=== PATIENT | male | born 1945 | race Caucasian/White ===

== ENCOUNTER 2019-07-12 15:47 | Outpatient (CLI) | payer MEDICARE, OTHER, SELFPAY ==
--- NOTE | ~2019-07-12 | XR_ITS ---
XR hand LT min 3V DATE: 07/12/2019 16:21 INDICATION: Pain, swelling, left fourth metacarpophalangeal area TECHNIQUE: 3 views COMPARISON: None FINDINGS: There is average 07/12/2019 US breast is there is polyarticular osteoarthritis including par ticularly the first carpometacarpal, as well as triscaphe, first and second metacarpophalangeal and m ultiple interphalangeal joints. No fracture, dislocation, periosteal reaction or bone destruction. IMPRESSION: Polyarticular osteoarthritis Reviewed, dictated and finalized at location A.
== END 2019-07-12 15:48 | disposition home or self-care (01) ==
PROVIDERS: PCP Family Medicine; Visit Provider Physician Assistant
DX: M19.042 Primary osteoarthritis, left hand (principal)
CPT/HCPCS: 73130

== ENCOUNTER 2019-08-30 09:42 | Outpatient (CLI) | payer MEDICARE, OTHER, SELFPAY ==
--- NOTE | ~2019-08-30 | XR_ITS ---
XR chest 2V DATE: 08/30/2019 09:52 INDICATION: Anemia TECHNIQUE: PA and lateral views COMPARISON: 12/31/2018 2 view chest FINDINGS: Normal heart size. No hilar or mediastinal enlargement. No pulmonary infiltrate or consolid ation, pleural effusion or pulmonary vascular congestion or pneumothorax. Dextroscoliosis of the thoracolumbar spine. Status post anterior cervical spine surgical fusion Status post cholecystectomy. IMPRESSION: No active cardiopulmonary disease Reviewed, dictated and finalized at location B.
== END 2019-08-30 09:43 | disposition home or self-care (01) ==
PROVIDERS: PCP Family Medicine; Visit Provider Physician Assistant
DX: D64.9 Anemia, unspecified (principal)
CPT/HCPCS: 71046

== ENCOUNTER 2020-04-26 08:43 | Outpatient (CLI) | payer MEDICARE, OTHER, SELFPAY ==
--- NOTE | ~2020-04-26 | XR_ITS ---
EXAMINATION: XR chest 2V DATE: 04/26/2020 11:06 INDICATION: Preoperative evaluation. Surgical risk factors of hypertension and coronary artery diseas e with prior coronary artery stenting. TECHNIQUE: PA and lateral views of the chest were obtained. COMPARISON: Chest radiograph dated 08/30/2019 FINDINGS: Unchanged mild elevation of the left hemidiaphragm and mild eventration along the right hemidiaphragm . No focal airspace opacities, pulmonary edema, pleural effusion or pneumothorax. The cardiomediastin al silhouette is normal. Coronary artery stent. Cholecystectomy clips in right upper quadrant. Anteri or plate and screw fixation at the lower cervical spine. Mild thoracolumbar dextrocurvature with mild to moderate spondylosis. IMPRESSION: 1. No acute cardiopulmonary disease. Reviewed, dictated and finalized at location B. OL PSYCHOLOGICAL EXAMINER
[2020-04-26 10:10] LABS: Basophils Absolute Auto 0.1 K/mm3 (0.0-0.1); Basophils Percent Auto 0.7 % (0.2-1.2); Eosinophils Absolute Auto 0.4 K/mm3 (0-0.3); Eosinophils Percent Auto 5.1 % (0-4.4); Hematocrit 36.7 % (42.0-52.0); Immature Granulocyte Absolute 0.04 K/mm3 (0.00-0.031); Immature Granulocyte Percent A 0.6 % (0-0.5); Lymphocytes Absolute Auto 1.59 K/mm3 (0.9-3.2); Lymphocytes Percent Auto 22.4 % (18.3-44.2); Mean Corpuscular HGB Conc 32.7 g/dl (32-36); Mean Corpuscular Hemoglobin 30.5 pg (26-34); Mean Corpuscular Volume 93.1 fl (80-100); Mean Platelet Volume 9.2 fl (7.4-10.4); Monocytes Percent Auto 13.7 % (2.6-8.5); Neutrophils Absolute Auto 4.1 K/mm3 (1.3-6.7); Neutrophils Percent Auto 57.5 % (45.5-73.1); Platelet Count Result 147 k/mm3 (150-375); Red Blood Count 3.94 M/mm3 (4.6-6.20); Red Cell Distribution Width 13.7 % (11.5-14.5); White Blood Count 7.1 K/mm3 (4.5-10.0)
--- NOTE | 2020-04-26 10:12 | ECG_ITS ---
Measurements Intervals [place] Rate: 51 P: 54 NM: 149 QRS: 36 QRSD: 96 T: 5 QT: 422 QTc: 391 Interpretive Statements SINUS BRADYCARDIA RSR' IN V1 OR V2, CONSIDER RIGHT VENTRICULAR HYPERTROPHY OR RIGHT VCD BASELINE WANDER- II, III, AVR, AVL, AVF BORDERLINE ECG Electronically Signed On 04-26-2020 10:43:41 MANAGER [employer]ES by Shakir Bowden D.O.
[2020-04-26 10:18] LABS: Prothrombin Time 13.5 Seconds (11.1-14.7)
[2020-04-26 10:19] LABS: Partial Thromboplastin Time 25.3 SECONDS (22.3-36.8)
[2020-04-26 10:23] LABS: Alanine Aminotransferase 20 U/L (4-50); Albumin Level 4.2 g/dL (3.5-5.1); Alkaline Phosphatase 56 U/L (38-126); Anion Gap 8 mmol/L (8-16); Aspartate Amino Transferase 28 U/L (17-59); Bilirubin,Total 0.6 mg/dL (0.2-1.3); Blood Urea Nitrogen 17 mg/dL (9-20); Calcium 9.7 mg/dL (8.4-10.2); Carbon Dioxide 30 mmol/L (22-30); Chloride 104 mmol/L (98-107); Estimated Glomerular Filt Rate > 60; Glucose 160 mg/dL (75-110); Sodium 142 mmol/L (137-145)
== END 2020-04-26 08:44 | disposition home or self-care (01) ==
PROVIDERS: PCP Family Medicine
DX: Z01.818 Encounter for other preprocedural examination (principal); D68.9 Coagulation defect, unspecified; Z79.01 Long term (current) use of anticoagulants
CPT/HCPCS: 36415; 71046; 80053; 85025; 85610; 85730; 93005

== ENCOUNTER 2020-08-11 09:31 | Outpatient (CLI) | payer MEDICARE, OTHER, SELFPAY ==
[2020-08-11 09:54] LABS: Hemoglobin A1C 6.9 % (<5.7)
[2020-08-14 17:52] LABS: H pylori, Urea Breath NOT DETECTED (NOT DETECTED)
== END 2020-08-11 09:32 | disposition home or self-care (01) ==
LOC: CHSLAB 09:35
PROVIDERS: PCP Family Medicine; Visit Provider Family Medicine
DX: E11.9 Type 2 diabetes mellitus without complications (principal); K21.9 Gastro-esophageal reflux disease without esophagitis
CPT/HCPCS: 36415; 83013; 83036

== ENCOUNTER 2020-08-15 12:38 | Outpatient (CLI) | payer MEDICARE, OTHER, SELFPAY ==
--- NOTE | ~2020-08-15 | CT_ITS ---
EXAMINATION: CT abdomen pelvis wo con DATE: 08/15/2020 12:59 INDICATION: Abdominal hernia without obstruction. Low abdominal pain. TECHNIQUE: Computed tomography (CT) of the abdomen and pelvis was performed without intravenous contr ast. Automated exposure control and iterative reconstruction technique were employed. The dose-length product was 670.77 mGy-cm. COMPARISON: CT abdomen and pelvis 05/25/2010 FINDINGS: The visualized portions of the lung bases demonstrate mild atelectasis. No pleural effusion . The heart size is normal. There are coronary artery calcifications. No pericardial effusion. The li siria is normal. Calcifications in the spleen are consistent with old granulomatous disease. There are changes of cholecystectomy. Calcifications in the pancreas are consistent with chronic pancreatitis. The adrenal glands and kidneys are normal. There is no urolithiasis. The prostate is moderately enlar ged. There are no dilated loops of bowel. The appendix is normal. There are no pathologically enlarge d lymph nodes. There is no free intraperitoneal fluid. There are changes of anterior and posterior fu alesha procedures in lumbar spine. There is mild thoracolumbar spondylosis. IMPRESSION: 1. No etiology for the patient's symptoms. Reviewed, dictated and finalized at location A.
== END 2020-08-15 12:39 | disposition home or self-care (01) ==
LOC: CHSIMG 12:41
PROVIDERS: PCP Family Medicine; Visit Provider Family Medicine
DX: K46.9 Unspecified abdominal hernia without obstruction or gangrene (principal)
CPT/HCPCS: 74176

== ENCOUNTER 2020-09-14 09:39 | Outpatient (CLI) | payer MEDICARE, OTHER, SELFPAY ==
--- NOTE | ~2020-09-14 | XR_ITS ---
XR hip RT 2V w AP pelvis DATE: 09/14/2020 10:08 INDICATION: Right hip pain for one year TECHNIQUE: AP pelvis. AP and lateral views of right hip COMPARISON: None FINDINGS: Lumbar surgical spinal fusion and laminectomy. The pubic symphysis and sacroiliac joints are intact. No pelvic fracture or bone destruction. There is mild right hip osteoarthritis. No right hip fracture or dislocation, avascular necrosis or bone destruction. IMPRESSION: Postoperative change of the lumbar spine Mild right hip osteoarthritis Reviewed, dictated and finalized at location A.
== END 2020-09-14 09:40 | disposition home or self-care (01) ==
LOC: CHSIMG 09:44
PROVIDERS: PCP Family Medicine; Visit Provider Family Medicine
DX: M25.551 Pain in right hip (principal); M16.11 Unilateral primary osteoarthritis, right hip
CPT/HCPCS: 73502

== ENCOUNTER 2020-12-06 11:34 | Outpatient (CLI) | payer MEDICARE, OTHER, SELFPAY ==
--- NOTE | ~2020-12-06 | XR_ITS ---
XR wrist LT 2V DATE: 12/06/2020 12:03 INDICATION: Left wrist pain TECHNIQUE: AP and lateral views COMPARISON: None FINDINGS: There is osteoarthritic change at the triscaphe joint. There is prominent osteoarthritic change at the first carpometacarpal joint. There is osteophytic herrera nge at the first metacarpophalangeal joint. No fracture or dislocation of the wrist. No erosive change or periostitis is noted. IMPRESSION: Polyarticular osteoarthritis No fracture or dislocation Reviewed, dictated and finalized at location B.
--- NOTE | ~2020-12-06 | XR_ITS ---
XR hand LT 2V DATE: 12/06/2020 12:02 INDICATION: Left hand pain from wrist to fingertips for 5 days TECHNIQUE: AP and lateral views COMPARISON: 07/12/2019 left hand FINDINGS: There is polyarticular osteoarthritis, most prominent at the first carpometacarpal and firs t and second metacarpophalangeal joints and some interphalangeal joints, greatest at the distal inter phalangeal joint of the second digit. No fracture or dislocation, periosteal reaction or bone destruction is detected. IMPRESSION: Polyarticular osteoarthritis; no significant change since 07/12/2019 Reviewed, dictated and finalized at location B.
== END 2020-12-06 11:35 | disposition home or self-care (01) ==
LOC: CHSIMG 11:37
PROVIDERS: PCP Family Medicine; Visit Provider Nurse Practitioner Family
DX: M79.642 Pain in left hand (principal); M25.532 Pain in left wrist
CPT/HCPCS: 73100; 73120

== ENCOUNTER 2021-01-31 11:43 | Outpatient (CLI) | payer MEDICARE, OTHER, SELFPAY ==
--- NOTE | ~2021-01-31 | XR_ITS ---
EXAMINATION: XR lumbar spine 2-3V DATE: 01/31/2021 12:36 INDICATION: Sciatica TECHNIQUE: Anteroposterior and lateral views of the lumbar spine, and cone-down lateral view of the l umbosacral junction were obtained. COMPARISON: 03/14/2014 FINDINGS: There are changes of anterior and posterior fusion at L2-3 and L4-5. Previously described a nterolisthesis of L4 on L5 has been reduced to anatomic alignment. There are 3 mm of unchanged retrol isthesis of L4 on L5. There are 2 mm of retrolisthesis of L1 on L2. The vertebral body height at are maintained. There is moderate loss of intervertebral disc space height at L3-4. Lumbar levocurvature is noted. No fracture is identified. Cholecystectomy clips are noted. IMPRESSION: 1. Changes of interval anterior and posterior fusion at L2-3 and L4-5 with reduced anterolisthesis of L4 on L5. Moderate lumbar spondylosis without acute findings. Reviewed, dictated and finalized at location A. SMELLER IMPRESSION: 1. Changes of interval anterior and posterior fusion at L2-3 and L4-5 with redu lashonda anterolisthesis of L4 on L5. Moderate lumbar spondylosis without acute find ings.
--- NOTE | ~2021-01-31 | XR_ITS ---
EXAMINATION: XR_CERV2-3V_CR EXAM DATE: 01/31/2021 12:36 INDICATION: Left shoulder pain. TECHNIQUE: Cervical spine frontal, lateral, lateral swimmers, and open-mouth odontoid projections. There is no prior study for comparison. FINDINGS: Cervical fusion hardware C4-6 along with interbody devices and solid bone bridging. Hardwa re is intact. Moderate to severe disc disease at C6-7 with 2 mm of anterolisthesis. The vertebral bod ies are otherwise aligned. The vertebral body and disc heights are otherwise well maintained. There i s moderate to severe cervical arthropathy, certainly causing some amount of neural foraminal stenosis . There is mild cervical levoscoliosis. There is about 3 cm sized region of lucency along the right side of the C4 and C5 vertebral bodies on the frontal projection. Recommend CT cervical spine without contrast for further evaluation. IMPRESSION: 1. Sizable lucent region overlying right side of C4 and 5 vertebral bodies, with some possibilities including osteolytic disease, tracheal or esophageal diverticulum. CT cervical spine without contrast recommended. 2. Intact cervical fusion C4-6. 3. Moderate to severe arthropathy and C6-7 disc disease. Reviewed, dictated and finalized at location A. ND PLANNER IMPRESSION: 1. Sizable lucent region overlying right side of C4 and 5 vertebral bodies, wi th some possibilities including osteolytic disease, tracheal or esophageal dive rticulum. CT cervical spine without contrast recommended. 2. Intact cervical fusion C4-6. 3. Moderate to severe arthropathy and C6-7 disc disease.
--- NOTE | ~2021-01-31 | XR_ITS ---
EXAMINATION: XR shoulder LT min 2V DATE: 01/31/2021 12:36 INDICATION: Left shoulder pain. TECHNIQUE: 4 views of left shoulder were obtained. COMPARISON: None. FINDINGS: Bone alignment is normal. No fracture. There is mild osteoarthritis of glenohumeral joint a nd acromioclavicular joint. IMPRESSION: 1. Mild polyarticular osteoarthritis. Reviewed, dictated and finalized at location A. T COOPER
== END 2021-01-31 11:44 | disposition home or self-care (01) ==
LOC: CHSIMG 11:47
PROVIDERS: PCP Family Medicine; Visit Provider Nurse Practitioner Family
DX: M25.512 Pain in left shoulder (principal); M54.2 Cervicalgia; M54.30 Sciatica, unspecified side
CPT/HCPCS: 72040; 72100; 73030

== ENCOUNTER 2021-02-02 12:02 | Outpatient (CLI) | payer MEDICARE, OTHER, SELFPAY ==
--- NOTE | ~2021-02-02 | CT_ITS ---
EXAMINATION: CT cervical spine wo con EXAM DATE: 02/02/2021 12:40 INDICATION: R93.7 - Abnormal cervical x-ray demonstrating lucent region overlying right side of lower cervical spine. TECHNIQUE: Spiral CT of the cervical spine was performed without contrast. Axial images were reviewe d. Coronal and sagittal reformatted images cervical spine were also reviewed. The dose-length produc t (DLP) for this examination was 496.49 mGy-cm. The exposure was tailored according to patient size (auto mA exposure control), and iterative reconstruction (ASIR) was used as additional dose reduction technique. Correlation is made to x-ray from 01/31/2021. FINDINGS: There are patulous vallecula and piriform sinuses, probably accounts for the lucent findin g, x-ray appearance. No tracheal diverticulum or osteolytic disease. Anterior and interbody fusion C4 -C6. There is solid bone bridging. There is moderate to severe disc disease at C6-7, moderate at C7-T 1. The vertebral bodies are aligned in the AP dimension. The odontoid process is intact. The lateral masses of C1 line up with C2. Prevertebral soft tissue and pre-dens space are within normal limits. Level by level evaluation: C2-C3: There is a mild diffuse disc bulge. Uncovertebral joint arthropathy: Mild bilateral. Facet joint arthropathy: Severe right, mild to moderate left. Neural foraminal stenosis: Mild to moderate right, mild left. Central canal stenosis: No stenosis. C3-C4: There is a mild diffuse disc bulge. Uncovertebral joint arthropathy: Mild to moderate right, mild left. Facet joint arthropathy: Severe right. Neural foraminal stenosis: Moderate to severe right. Central canal stenosis: No stenosis. C4-C5: There is posterior disc osteophyte complex. Uncovertebral joint arthropathy: Moderate to severe right, mild to moderate left. Facet joint arthropathy: Moderate to severe bilateral. Neural foraminal stenosis: Moderate to severe right, mild to moderate left. Central canal stenosis: Mild. C5-C6: This level is fused. Uncovertebral joint arthropathy: Moderate right, mild to moderate left. Facet joint arthropathy: Severe right, moderate left, but both fused. Neural foraminal stenosis: Moderate right, mild to moderate left. Central canal stenosis: No stenosis. C6-C7: There is a mild diffuse disc bulge. Uncovertebral joint arthropathy: Moderate to severe left, mild to moderate right. Facet joint arthropathy: Mild bilateral. Neural foraminal stenosis: Moderate to severe left. Central canal stenosis: Mild. C7-T1: There is a mild diffuse disc bulge. Uncovertebral joint arthropathy: Mild to moderate left, mild right. Facet joint arthropathy: Severe bilateral. Neural foraminal stenosis: Mild bilateral. Central canal stenosis: No stenosis. IMPRESSION: 1. Intact C4-6 fusion. 2. Advanced arthropathy, spondylosis as above. 3. No osteolytic disease. Reviewed, dictated and finalized at location A. RACTIVE MEDIA MARKETING SPECIALIST
== END 2021-02-02 12:03 | disposition home or self-care (01) ==
LOC: CHSIMG 12:03
PROVIDERS: PCP Family Medicine; Visit Provider Nurse Practitioner Family
DX: R93.7 Abnormal findings on diagnostic imaging of other parts of musculoskeletal system (principal)
CPT/HCPCS: 72125

== ENCOUNTER 2021-04-03 14:49 | Outpatient (CLI) | payer MEDICARE, OTHER, SELFPAY ==
--- NOTE | ~2021-04-03 | US_ITS ---
EXAMINATION: US soft tissue LE LT DATE: 04/03/2021 15:03 INDICATION: Left lower limb pain. TECHNIQUE: Multiple grayscale and Doppler ultrasound images of the left lower limb were obtained. COMPARISON: None FINDINGS: There is no hematoma in the calf. No Burch's cyst. IMPRESSION: 1. No etiology for the patient's symptoms. Reviewed, dictated and finalized at location A. PY STRINGER
== END 2021-04-03 14:50 | disposition home or self-care (01) ==
LOC: CHSIMG 14:50
PROVIDERS: PCP Family Medicine; Visit Provider Nurse Practitioner Family
DX: M79.662 Pain in left lower leg (principal)
CPT/HCPCS: 76882

== ENCOUNTER 2021-07-24 16:15 | Emergency (ER) | payer MEDICARE, OTHER, SELFPAY ==
[2021-07-24] VITALS (18 sets, daily range): BP systolic 121–147; BP diastolic 69–82; PULSE 65–80; RESP 16–20; TEMP 36.3; O2SAT 90–99
--- NOTE | ~2021-07-24 | CT_ITS ---
EXAMINATION: CTA chest PE protocol DATE: 07/24/2021 18:34 INDICATION: Shortness of breath TECHNIQUE: Computed tomography angiography (CTA) of the chest was performed with 100 mL Omnipaque-350 intravenous contrast timed to evaluate the pulmonary arteries. Coronal maximum intensity projection 3D-reconstructions were created by the technologist. The dose-length product (DLP) was 463.16 mGy-cm. Automated exposure control and iterative reconstruction technique were employed. COMPARISON: 02/14/2016 FINDINGS: The pulmonary arteries are well-opacified. No pulmonary embolism is identified. There are c hanges of right partial pneumonectomy. Mild dependent atelectasis is noted. There are no focal airspa ce opacities. No pathologically enlarged thoracic lymph nodes are identified. The heart size is niya l. Mild gynecomastia is noted. Punctate calcifications in an otherwise normal spleen likely represent healed granulomatous disease. There is mild thoracic spondylosis. IMPRESSION: 1. No pulmonary embolism or acute cardiopulmonary abnormality. Reviewed, dictated and finalized at location F.
--- NOTE | ~2021-07-24 | XR_ITS ---
EXAMINATION: XR chest 1V portable DATE: 07/24/2021 16:44 INDICATION: Shortness of breath and weakness TECHNIQUE: frontal view of the chest was obtained. COMPARISON: Chest radiograph dated 04/26/2020 FINDINGS: Unchanged mild elevation of the left hemidiaphragm and mild eventration along the right hemidiaphragm . Lungs remain clear with no focal airspace opacities, pulmonary edema, pleural effusion or pneumotho rax. The cardiomediastinal silhouette is normal. Plate-screw fixation for lower cervical anterior spi nal fusion. IMPRESSION: 1. No acute cardiopulmonary disease. Reviewed, dictated and finalized at location B.
--- NOTE | 2021-07-24 16:25 | ED.SOB ---
HPI - SOB/Dyspnea General Chief Complaint: Shortness of Breath/Dyspnea Stated Complaint: trouble breathing Time Seen by Provider: 07/24/21 16:25 Source: patient Limitations: no limitations History of Present Illness HPI Narrative: 75-year-old male with a history of hypertension, diabetes mellitus, coronary artery disease status post stent, EF 60%, dyslipidemia, MARTIN presents to the ER with -- shortness of breath for the past 2 weeks. Initially patient had shortness of breath on attempting to sleep. Presently he has shortness of breath all the time irrespective of his position. no chest pain. No cough or sputum production MD elicited complaint: shortness of breath Onset (ago): day(s) ( started 14 days ago severe for the past 2 days) Timing: intermittent Severity: mild Exacerbating factors: lying flat Relieving factors: nothing Associated symptoms: denies other symptoms Treatment prior to arrival: none Related Data Home oxygen amount: none Home Medications Medication Instructions Recorded Confirmed omega-3 fatty acids 1,000 mg 1,000 mg PO DAILY 01/08/19 07/24/21 capsule (Fish Oil Concentrate) aspirin 81 mg tablet,delayed 81 mg PO DAILY 07/05/20 07/24/21 release clopidogrel 75 mg tablet 75 mg PO DAILY 07/05/20 07/24/21 pantoprazole 40 mg tablet,delayed 40 mg PO QAM 08/11/20 07/24/21 release (Protonix) carvedilol 6.25 mg tablet See Rx Instructions PO Q12H 04/16/21 07/24/21 Allergies Allergy/AdvReac Type Severity Reaction Status Date / Time mirtazapine Allergy Unknown legs shake Verified 07/24/21 16:26 Review of Systems Review of Systems: All systems reviewed & are unremarkable except as noted in HPI and below Constitutional: Constitutional: Reports as per HPI and Reports no additional constitutional complaints Eyes: Eyes: Reports as per HPI and Reports no additional eye complaints ENT: Reports system reviewed and no additional complaints, except as documented and Reports as per HPI Cardiovascular: Cardiovascular: Reports as per HPI and Reports no additional cardiovascular complaints Respiratory: Respiratory: Reports as per HPI, Reports no additional respiratory complaints and Reports dyspnea Gastrointestinal: Gastrointestinal: Reports as per HPI and Reports no additional gastrointestinal complaints Genitourinary: Genitourinary: Reports no additional male genitourinary complaints and Reports as per HPI Musculoskeletal: Musculoskeletal: Reports no additional musculoskeletal complaints and Reports as per HPI Integumentary/Breasts: Skin/Breast: Reports system reviewed and no additional complaints, except as docu and Reports as per HPI Neurologic: Reports system reviewed and no additional complaints, except as documented and Reports as per HPI Psychiatric: Psychiatric: Reports no additional psychiatric complaints and Reports as per HPI Endocrine: Endocrine: Reports no additional endocrine complaints and Reports as per HPI Hematologic/Lymphatic: Hematologic/Lymphatic: Reports no additional hematologic/lymphatic complaints and Reports as per HPI Allergic/Immunologic: Allergic/Immunologic: Reports no additional allergic/immunologic complaints and Reports as per HPI [facility] Past Medical History Medical History (Updated 07/24/21 @ 19:13 by Giovanny Ragsdale MD) Coronary artery disease Fusion of lumbar spine (~2013) Hernia Lumbar disc herniation Surgical History Surgical History H/O lumbosacral spine surgery History of cardiac cath April, with stent History of cholecystectomy History of heart artery stent April, History of tonsillectomy and adenoidectomy Family History Family History Father Diabetes mellitus Hypertension Family history of elevated blood lipids Family history of cardiovascular disease Acute myocardial infarction Mother Diabetes mellitus Hypertensi
--- NOTE | 2021-07-24 16:29 | ECG_ITS ---
Measurements Intervals [place] Rate: 71 P: 59 DE: 141 QRS: 3 QRSD: 92 T: -14 QT: 366 QTc: 400 Interpretive Statements SINUS RHYTHM EARLY PRECORDIAL R/S TRANSITION CONSIDER INFERIOR INFARCT, AGE INDETERMINATE BASELINE ARTIFACT- I, II, III, AVR, AVL, AVF, V1-V6 ABNORMAL ECG Electronically Signed On 07-24-2021 18:19:06 CDT by Shakir Bowden D.O.
[2021-07-24 16:57] LABS: Basophils Absolute Auto 0.05 K/mm3 (0.00-0.10); Basophils Percent Auto 0.7 % (0.0-1.0); Eosinophils Absolute Auto 0.56 K/mm3 (0.02-0.50); Eosinophils Percent Auto 8.1 % (1.0-6.0); Hematocrit 35.9 % (37.0-46.0); Hemoglobin 11.6 g/dL (12.4-15.3); Immature Granulocyte Absolute 0.02 K/mm3 (0.00-0.00); Immature Granulocyte Percent A 0.3 % (0.0-0.0); Lymphocytes Absolute Auto 1.46 K/mm3 (1.10-4.50); Lymphocytes Percent Auto 21.1 % (18.0-42.0); Mean Corpuscular HGB Conc 32.3 g/dL (32.0-36.0); Mean Corpuscular Hemoglobin 30.6 pg (27.0-31.0); Mean Corpuscular Volume 94.7 fL (78.0-102.0); Mean Platelet Volume 9.1 fl (8.7-11.0); Monocytes Absolute Auto 0.98 K/mm3 (0.10-0.90); Monocytes Percent Auto 14.1 % (2.0-11.0); Neutrophils Absolute Auto 3.9 K/mm3 (1.7-7.2); Neutrophils Percent Auto 55.7 % (50.0-70.0); Platelet Count Result 166 K/mm3 (150-420); Red Blood Count 3.79 M/mm3 (4.70-6.10); Red Cell Distribution Width 13.6 % (11.6-14.4); White Blood Count 6.9 K/mm3 (4.8-10.8)
[2021-07-24 17:12] LABS: Partial Thromboplastin Time 24.1 SEC (23.90-30.70)
[2021-07-24 17:16] LABS: D Dimer 0.54 mg/L (0.19-0.50)
[2021-07-24 17:18] LABS: SARS-CoV-2 Ag Negative (Negative)
[2021-07-24 17:24] LABS: Magnesium 1.8 mg/dL (1.8-2.4); Troponin I 9.9 ng/L (0.00-60.4)
[2021-07-24 17:27] LABS: Alanine Aminotransferase 28 U/L (16-63); Albumin Level 3.9 g/dL (3.4-5.0); Alkaline Phosphatase 69 U/L (46-116); Anion Gap 7 mmol/L (8-16); Aspartate Amino Transferase 19 U/L (15-37); Bilirubin,Total 0.6 mg/dL (0.00-1.00); Blood Urea Nitrogen 22 mg/dL (7-18); Calcium 9.6 mg/dL (8.5-10.1); Carbon Dioxide 29 mmol/L (21-32); Chloride 104 mmol/L (98-108); Estimated CRCL calculation 57 ml/min; Estimated Glomerular Filt Rate > 60; Glucose 162 mg/dL (70-99); NT Pro B Type Natriuretic Pept 282 pg/mL (0-450); Osmolality Calculated 297 mOsm/kg (285-295); Potassium 4.3 mmol/L (3.5-5.1); Sodium 140 mmol/L (136-145); Total Protein 7.1 g/dL (6.4-8.2)
[2021-07-24] MEDS: LACTATED RINGERS 1,000 ML 999 ML IV CONT (18:38)
--- NOTE | 2021-07-24 18:41 | PC.NURSE ---
PT HAS RETURNED FROM CT AT THIS TIME. SON AT BEDSIDE. NAD NOTED. PT IS IN POSITION OF COMFORT, DUE TO PAIN WITH LEFT HIP. PT VSS PER MONITOR. NAD NOTED. CALL LIGHT PROVIDED. WILL CONTINUE TO MONITOR. IVF INFUSING ORDERED WITHOUT DIFFICULTY.
== END 2021-07-24 19:25 | disposition home or self-care (01) ==
PROVIDERS: Emergency Provider Internal Medicine Critical Care Medicine; PCP Family Medicine
DX: R06.02 Shortness of breath (principal); Z20.822 Contact with and (suspected) exposure to COVID-19; I25.10 Atherosclerotic heart disease of native coronary artery without angina pectoris
CPT/HCPCS: 36415; 71045; 71275; 80053; 83735; 83880; 84484; 85025; 85380; 85610; 85730; 87426; 93005; 96360; 99284; C9803; J7120; Q9967

== ENCOUNTER 2021-08-03 08:58 | Outpatient (CLI) | payer MEDICARE, OTHER, SELFPAY ==
--- NOTE | 2021-08-14 12:27 | P.PCNPFT_ITS ---
PFT Procedure Performed PFT Procedure Performed Spirometry with Pre/Post Bronchodilator Plethysmography (Lung Vol) Diffusing Cap (DLCO) Flow Vol Loop PFT Interpretation DOS: 08/03/2021 REQUESTING: Dr Howe REASON FOR TESTING: Shortness of breath PULMONARY FUNCTION TESTS Results are reliable and reproducible. Spirometry: Pre-bronchodilator FEV1 is 83% predicted, 2.26 L., normal. Pre- bronchodilator FVC is 93% predicted, 3.31 L, normal. The FEV1/FVC ratio is 68%. After bronchodilator there is no significant improvement in flows in the FEV1 or FVC. The LTN18-66 is 47% predicted, 1.30 L. This increases by 19% with bronchodilator. Lung volumes: Total lung capacity is 94%, 5.6 L, normal. Residual volume is 86%, 2.16 L, normal. RV/TLC is 39% which is 86% predicted, normal. Diffusion: DLCO 95% predicted, normal. Flow volume loop: Unremarkable. IMPRESSION: This pulmonary function test shows a mild obstructive ventilatory impairment which is more significant in the small airways, improvement in flows in the small airways, normal lung volumes and normal diffusion. In the proper clinical setting this could be consistent with asthma. Oksana France MD
== END 2021-08-03 08:59 | disposition home or self-care (01) ==
LOC: CHSCARD 09:01
PROVIDERS: PCP Family Medicine; Visit Provider Nurse Practitioner Family
DX: R06.02 Shortness of breath (principal)
CPT/HCPCS: 94060; 94726; 94729

== ENCOUNTER 2021-09-03 08:04 | Outpatient (CLI) | payer MEDICARE, OTHER, SELFPAY ==
--- NOTE | 2021-09-03 08:06 | EST_ITS ---
Patient Info Name: Gavin Fenton Age: 75 years : 1945 Gender: Male Ht: 68 in Wt: 192 lbs BSA: 2.07 m2 HR: 95 bpm BP: 113 / 59 mmHg Heart Rhythm: Bradycardia Technical Quality: Good Exam Date: 09/03/2021 9:33 AM Exam Location: [facility] Patient Status: Outpatient Admit Date: 09/03/2021 Staff Ordering Physician: Rita Howell NP Attending Provider: Rita Howell NP Exercise Technologist: Jacquie Spivey CRT Exercise Physician: Radha Lyons CEP Exam Type: CA stress stiven w NM Study Info Indications SOB - A nuclear stress test was performed. History/Risk Factors Diabetes Mellitus: Yes History/Risk Factors Diabetes. Summary 1. 1. Negative lexiscan stress test for ischemic ST changes by ECG criteria. 2. 2. Stable hemodynamics throughout the test. 3. 3. Nuclear scan to follow and will be reported separately. Please correlate with it. Protocol: LEXISCAN Stress ECG Details Stage: REST Duration (min): 1 min : 2 sec HR (bpm): 64 SBP (mmHg): 113 DBP (mmHg): 59 Stage: REST Duration (min): 5 min : 45 sec HR (bpm): 61 SBP (mmHg): 113 DBP (mmHg): 59 Stage: STAGE 1 Duration (min): 0 min : 14 sec HR (bpm): 66 SBP (mmHg): 113 DBP (mmHg): 59 Stage: RECOVERY Duration (min): 0 min : 45 sec HR (bpm): 80 SBP (mmHg): 113 DBP (mmHg): 59 Stage: RECOVERY Duration (min): 1 min : 45 sec HR (bpm): 89 SBP (mmHg): 113 DBP (mmHg): 59 Stage: RECOVERY Duration (min): 2 min : 45 sec HR (bpm): 88 SBP (mmHg): 109 DBP (mmHg): 51 Stage: RECOVERY Duration (min): 3 min : 45 sec HR (bpm): 85 SBP (mmHg): 109 DBP (mmHg): 47 Stage: RECOVERY Duration (min): 4 min : 45 sec HR (bpm): 88 SBP (mmHg): 112 DBP (mmHg): 46 Stage: RECOVERY Duration (min): 5 min : 45 sec HR (bpm): 84 SBP (mmHg): 110 DBP (mmHg): 47 Stage: RECOVERY Duration (min): 6 min : 5 sec HR (bpm): 79 SBP (mmHg): 110 DBP (mmHg): 47 Rest HR: 61 bpm Peak HR: 91 bpm Rest Sys BP: 113 mmHg Peak Sys BP: 112 mmHg Max Pred HR: 145 bpm % Max Pred HR: 63 % Target HR: 123 bpm Max RPP: 10,192 bpm*mmHg BP Response: Normal blood pressure response Termination Reason: Completed Protocol Cardiac Symptoms: Chest Pressure, Dyspnea Total Time: 0 min : 14 sec Rest Wolf BP: 59 mmHg Peak Wolf BP: 46 mmHg Total Dose: 0.4 mg Resting ECG Sinus bradycardia, inferior infarct, age indeterminate. Stress ECG No abnormal ST/T wave changes. Arrhythmias Isolated PVC's. Report Signatures
--- NOTE | 2021-09-13 07:36 | WPDCARIOSTRE ---
Nuclear Stress Test INDICATIONS Indications: Shortness of breath PROCEDURE Procedure Performed: Myocardial Perf Spect-Multi Procedure: Patient underwent a lexiscan stress test and was immediately injected with33 mCi of cardiolyte. Multiple tomographic images were obtained. These are of adequate quality. There is evidence of large size, severe inferior perfusion defect, and a moderate size, mild anteroapical perfusion defect with stress imaging. A separate resting images were obtained after patient was injected with 10 mCi of cardiolyte. Multiple tomographic images were obtained. These are of adequaate quality. There is evidence of large size, severe inferior perfusion defect, and a moderate size, mild anteroapical perfusion defect with rest imaging. CONCLUSION Conclusion: 1. Myocardial perfusion imaging demonstrating a fixed large size inferior perfusion defect suggestive of diaphragmatic attenuation artifact. In addition, there is a fixed moderate size anteroapical perfusion defect suggestive of artifact but cannot exclude prior infarct. 2. Left ventriculogram demonstrates normal LV ejection fraction of 65% with no wall motion abnormalities. 3. TID score 1.05 is normal.
== END 2021-09-03 08:05 | disposition home or self-care (01) ==
LOC: CHSCARD 08:06
PROVIDERS: PCP Family Medicine; Visit Provider Nurse Practitioner Family
DX: R06.02 Shortness of breath (principal); R68.89 Other general symptoms and signs
CPT/HCPCS: 78452; 93017; A9502; J2785

== ENCOUNTER 2021-09-28 18:49 | Emergency (ER) | payer MEDICARE, OTHER, SELFPAY ==
--- NOTE | 2021-09-28 19:16 | ED.GENADULT ---
HPI - General Adult General Chief complaint: Extremity Problem,Nontraumatic Stated complaint: possible blood clot in leg. History of Present Illness HPI narrative: the patient is a 75-year-old male with comorbidities of hypertension, asthma, hyperlipidemia, diabetes, coronary artery disease status post stent placement, GERD and hyperlipidemia. He has had lumbar disc fusion in 2013. For the last several months, the patient has had left leg pain. He has seen his primary care provider on 04/25/2021 for the same problem, left leg pain. He has been referred to Sports Medicine and has been referred to Rheumatology. He has been prescribed tinazidine recently by his primary care provider but he has not picked up prescription yet. He contacted his specialists at [facility] and they referred him here for ruling out a blood clot in the leg. He has been to [place] and had EMG studies and an ultrasound done of the left leg recently. He does not know the results of that. The pain in the left leg has increased over the last several weeks. There is no acute process but more chronic. There is no redness. No recent trauma. The pain is in the lateral aspect of the left leg and worse with ambulation. He has not tried tramadol in the past per his report and per his spouse's report. He has tried OTC medications without success. Related Data Home Medications Medication Instructions Recorded Confirmed omega-3 fatty acids 1,000 mg 1,000 mg PO DAILY 01/08/19 09/28/21 capsule (Fish Oil Concentrate) aspirin 81 mg tablet,delayed 81 mg PO DAILY 07/05/20 09/28/21 release clopidogrel 75 mg tablet 75 mg PO DAILY 07/05/20 09/28/21 pantoprazole 40 mg tablet,delayed 40 mg PO QAM 08/11/20 09/28/21 release (Protonix) Allergies Allergy/AdvReac Type Severity Reaction Status Date / Time mirtazapine Allergy Unknown legs shake Verified 09/28/21 19:11 Review of Systems Review of Systems: All systems reviewed & are unremarkable except as noted in HPI and below Constitutional: Constitutional: Reports no additional constitutional complaints, Denies anorexia, Denies body ache(s), Denies chills, Denies excessive sweating, Denies fatigue, Denies fever(s), Denies frequent falls, Denies headache(s), Denies malaise and Denies poor appetite Eyes: Eyes: Reports no additional eye complaints, Denies blurry vision, Denies change in vision, Denies irritation, Denies itchy eyes and Denies photophobia ENT: Reports system reviewed and no additional complaints, except as documented, Reports Normal hearing present, Denies change in voice, Denies dysphagia, Denies vertigo, Denies dizziness, Denies ear discharge, Denies headache(s), Denies hearing loss, Denies hoarseness, Denies nasal congestion, Denies neck pain, Denies sinus pressure, Denies sore throat and Denies throat swelling Cardiovascular: Cardiovascular: Reports no additional cardiovascular complaints, Denies chest pain, Denies syncope, Denies rapid heart rate, Denies irregular heart rhythm, Denies leg edema, Denies dyspnea and Denies slow heart rate Respiratory: Respiratory: Reports no additional respiratory complaints, Denies cough, Denies dyspnea, Denies stridor and Denies wheezing Gastrointestinal: Gastrointestinal: Reports no additional gastrointestinal complaints, Denies abdominal pain, Denies melena, Denies hematochezia, Denies dysphagia, Denies diarrhea, Denies nausea and Denies vomiting Genitourinary: Genitourinary: Denies hematuria, Denies oliguria, Denies dysuria, Denies flank pain, Denies urinary frequency and Denies urinary urgency Musculoskeletal: Musculoskeletal: Reports no additional musculoskeletal complaints, Denies abnormal gait, Denies back pain (chronic left leg pain laterally ), Denies myalgias, Denies arthralgias, Denies joint swelling, Denies limited range of motion, Denies muscle cramps, Denies muscle weakness, Denies neck pain and Denies numbness Integumentary/Breasts: Skin/Breast: Rep
[2021-09-28 19:17] VITALS: BP 130/60; PULSE 81; RESP 18; TEMP 36.4; O2SAT 96
[2021-09-28] MEDS: traMADol HCL (*CRX) 50 MG TABLET PO (19:57)
[2021-09-28] MEDS: CYCLOBENZAPRINE HCL 5 MG TABLET PO (19:57)
[2021-09-28 20:09] VITALS: BP 119/65; PULSE 77; RESP 18; O2SAT 97
== END 2021-09-28 20:10 | disposition home or self-care (01) ==
PROVIDERS: Emergency Provider Emergency Medicine; PCP Family Medicine
DX: M79.605 Pain in left leg (principal); I25.10 Atherosclerotic heart disease of native coronary artery without angina pectoris; E78.5 Hyperlipidemia, unspecified; E11.9 Type 2 diabetes mellitus without complications; I10 Essential (primary) hypertension; K21.9 Gastro-esophageal reflux disease without esophagitis
CPT/HCPCS: 99283; A9270

== ENCOUNTER 2021-12-24 13:27 | Emergency (ER) | payer MEDICARE, OTHER, SELFPAY ==
[2021-12-24] VITALS (7 sets, daily range): BP systolic 147–165; BP diastolic 72–95; PULSE 78–94; RESP 16–20; TEMP 36.3–36.4; O2SAT 94–100
--- NOTE | ~2021-12-24 | XR_ITS ---
EXAMINATION: XR chest 1V portable Exam Date/Time: 12/24/2021 14:35 CDT HISTORY: severe sob from COVID Comparison: 07/24/2021. RESULT: Lines, tubes, and devices: Partially visualized cervical fusion hardware. Lungs and pleura: Clear. Cardiomediastinal silhouette: Stable. Other: No acute osseous or upper abdominal finding. IMPRESSION: No acute cardiopulmonary process. Reviewed, dictated and finalized at location K.
--- NOTE | ~2021-12-24 | US_ITS ---
EXAMINATION: US venous doppler LE RT DATE: 12/24/2021 15:24 INDICATION: Right lower limb pain TECHNIQUE: Grayscale ultrasound images without and with compression and Doppler ultrasound images of the right lower extremity veins were obtained. COMPARISON: None. FINDINGS: The visualized portions of right common femoral vein, profunda (deep) femoral vein, femoral vein, pop liteal vein, peroneal trunk, posterior tibial veins, peroneal veins, lesser saphenous vein and greate r saphenous vein outflow are patent. IMPRESSION: 1. No deep venous thrombosis in the right lower limb. Reviewed, dictated and finalized at location B.
--- NOTE | 2021-12-24 14:19 | ECG_ITS ---
Measurements Intervals [place] Rate: 78 P: 63 [place]: 146 QRS: 40 QRSD: 90 T: 9 QT: 346 QTc: 395 Interpretive Statements SINUS RHYTHM EARLY PRECORDIAL R/S TRANSITION BASELINE ARTIFACT- I, II, III, AVR, AVL, AVF, V1-V2 BORDERLINE ECG COMPARED TO ECG 07/24/2021 16:38:32 NO SIGNIFICANT CHANGES Electronically Signed On 12-25-2021 6:44:08 CDT by Shakir Bowden D.O.
[2021-12-24 14:45] LABS: Basophils Absolute Auto 0.02 K/mm3 (0.00-0.10); Basophils Percent Auto 0.2 % (0.0-1.0); Eosinophils Absolute Auto 0.01 K/mm3 (0.02-0.50); Eosinophils Percent Auto 0.1 % (1.0-6.0); Hematocrit 33.4 % (37.0-46.0); Hemoglobin 11.4 g/dL (12.4-15.3); Immature Granulocyte Absolute 0.28 K/mm3 (0.00-0.00); Immature Granulocyte Percent A 2.6 % (0.0-0.0); Lymphocytes Absolute Auto 1.38 K/mm3 (1.10-4.50); Mean Corpuscular HGB Conc 34.1 g/dL (32.0-36.0); Mean Corpuscular Hemoglobin 30.6 pg (27.0-31.0); Mean Corpuscular Volume 89.5 fL (78.0-102.0); Monocytes Absolute Auto 1.16 K/mm3 (0.10-0.90); Neutrophils Absolute Auto 7.7 K/mm3 (1.7-7.2); Neutrophils Percent Auto 73.1 % (50.0-70.0); Platelet Count Result 185 K/mm3 (150-420); Red Blood Count 3.73 M/mm3 (4.70-6.10); Red Cell Distribution Width 13.4 % (11.6-14.4); White Blood Count 10.6 K/mm3 (4.8-10.8)
[2021-12-24] MEDS: IPRATROPIUM 0.5 MG/ALBUTEROL SULFATE 2.5 MG AMPUL.NEB 3 ML INHALATION (14:47)
[2021-12-24] MEDS: methylPREDNISolone SOD SUCC 125 MG VIAL IV PUSH (14:55)
[2021-12-24 15:02] LABS: Alanine Aminotransferase 30 U/L (16-63); Albumin Level 3.4 g/dL (3.4-5.0); Alkaline Phosphatase 71 U/L (46-116); Anion Gap 7 mmol/L (8-16); Aspartate Amino Transferase 12 U/L (15-37); Bilirubin,Total 0.4 mg/dL (0.00-1.00); Blood Urea Nitrogen 27 mg/dL (7-18); Calcium 9.3 mg/dL (8.5-10.1); Carbon Dioxide 29 mmol/L (21-32); Chloride 102 mmol/L (98-108); Estimated CRCL calculation 53 ml/min; Estimated Glomerular Filt Rate > 60; Glucose 225 mg/dL (70-99); Osmolality Calculated 298 mOsm/kg (285-295); Potassium 4.3 mmol/L (3.5-5.1); Sodium 138 mmol/L (136-145); Total Protein 7.1 g/dL (6.4-8.2); Troponin I 11.8 ng/L (0.00-60.4)
[2021-12-24 15:19] LABS: SARS-CoV-2 RNA PCR Positive (Negative)
[2021-12-24 15:21] LABS: Influenza A QL RT-PCR Negative (Negative); Influenza B QL RT-PCR Negative (Negative)
[2021-12-24 15:32] LABS: Base Excess ABG 0.1 mmol/L (0-2); HCO3 ABG 22.6 mmol/L (23-29); Oxygen Saturation ABG 96.3 % (95-97); Oxyhemoglobin 95.8 % (94-100); PCO2 ABG 30.6 mmHg (35-45); PO2 ABG 84.9 mmHg (75-85); Total Hemoglobin 12.6 g/dL (12.0-18.0); pH ABG 7.49 (7.35-7.45)
[2021-12-24 15:33] LABS: Device ROOM AIR; Modified Allen's Test Pass; Site Drawn LEFT RADIAL
--- NOTE | 2021-12-24 16:18 | ED.SOB ---
HPI - SOB/Dyspnea General Chief Complaint: Shortness of Breath/Dyspnea Stated Complaint: SHORTNESS OF BREATH Time Seen by Provider: 12/24/21 13:30 Source: patient and RN notes reviewed Mode of arrival: wheelchair History of Present Illness MD elicited complaint: shortness of breath and asthma attack Pertinent past history: asthma Onset (ago): hour(s) Context: occurred during exertion and smoke/fume exposure Timing: constant Severity: mild Exacerbating factors: nothing Relieving factors: oxygen and bronchodilators Known history of: asthma Associated symptoms: chest pain Related Data Home Medications Medication Instructions Recorded Confirmed omega-3 fatty acids 1,000 mg 1,000 mg PO DAILY 01/08/19 12/19/21 capsule (Fish Oil Concentrate) aspirin 81 mg tablet,delayed 81 mg PO DAILY 07/05/20 12/19/21 release clopidogrel 75 mg tablet 75 mg PO DAILY 07/05/20 12/19/21 pantoprazole 40 mg tablet,delayed 40 mg PO QAM 08/11/20 12/19/21 release (Protonix) Allergies Allergy/AdvReac Type Severity Reaction Status Date / Time mirtazapine Allergy Unknown legs shake Verified 12/24/21 14:08 Review of Systems Review of Systems: All systems reviewed & are unremarkable except as noted in HPI and below Constitutional: Constitutional: Reports no additional constitutional complaints Eyes: Eyes: Reports no additional eye complaints ENT: Reports system reviewed and no additional complaints, except as documented Cardiovascular: Cardiovascular: Reports no additional cardiovascular complaints Respiratory: Respiratory: Reports no additional respiratory complaints, Reports dyspnea and Reports wheezing Gastrointestinal: Gastrointestinal: Reports no additional gastrointestinal complaints Musculoskeletal: Musculoskeletal: Reports no additional musculoskeletal complaints Integumentary/Breasts: Skin/Breast: Reports system reviewed and no additional complaints, except as docu Neurologic: Reports system reviewed and no additional complaints, except as documented Psychiatric: Psychiatric: Reports no additional psychiatric complaints Endocrine: Endocrine: Reports no additional endocrine complaints Hematologic/Lymphatic: Hematologic/Lymphatic: Reports no additional hematologic/lymphatic complaints Allergic/Immunologic: Allergic/Immunologic: Reports no additional allergic/immunologic complaints [facility] Past Medical History Medical History Asthma Coronary artery disease Fusion of lumbar spine (~2013) Hernia Lumbar disc herniation Surgical History Surgical History H/O lumbosacral spine surgery History of cardiac cath April, with stent History of cholecystectomy History of heart artery stent April, History of tonsillectomy and adenoidectomy Family History Family History Father Diabetes mellitus Hypertension Family history of elevated blood lipids Family history of cardiovascular disease Acute myocardial infarction Mother Diabetes mellitus Hypertension Family history of elevated blood lipids Acute myocardial infarction Family history of chronic obstructive pulmonary disease Sibling Diabetes mellitus Hypertension Family history of elevated blood lipids Other Family history of kidney disease Social History Social History Smoking status: Never smoker Alcohol intake: never Exam Const: General: healthy appearing, no acute distress and well nourished Nutritional Appearance: well nourished Orientation/consciousness: patient oriented x3 Limitations: no limitations HENMT: Head: normal to inspection Ears: external ears normal, TM's normal bilaterally and EAC's normal Face/Nose/Sinus: Normal external nose present, Normal nares present, normal facial exam and sinuses nont
[2021-12-24 16:41] LABS: Glucose Point of Care 233 mg/dl (65-105)
== END 2021-12-24 16:41 | disposition home or self-care (01) ==
PROVIDERS: Emergency Provider Emergency Medicine; PCP Family Medicine
DX: J45.909 Unspecified asthma, uncomplicated (principal); U07.1 COVID-19; E11.9 Type 2 diabetes mellitus without complications; I25.10 Atherosclerotic heart disease of native coronary artery without angina pectoris
CPT/HCPCS: 36415; 36600; 71045; 80053; 82805; 82948; 84484; 85025; 87502; 93005; 93971; 94640; 96374; 99284; J2930; U0003; U0005

== ENCOUNTER 2021-12-28 08:54 | Outpatient (CLI) | payer MEDICARE, OTHER, SELFPAY ==
[2021-12-28 09:07] LABS: Hematocrit 35.6 % (37.0-46.0); Hemoglobin 12.1 g/dL (12.4-15.3); Mean Corpuscular Hemoglobin 30.9 pg (27.0-31.0); Mean Corpuscular Volume 90.8 fL (78.0-102.0); Mean Platelet Volume 8.9 fl (8.7-11.0); Platelet Count Result 231 K/mm3 (150-420); Red Blood Count 3.92 M/mm3 (4.70-6.10); Red Cell Distribution Width 13.6 % (11.6-14.4); White Blood Count 12.8 K/mm3 (4.8-10.8)
[2021-12-28 09:24] LABS: Hemoglobin A1C 8.1 % (<5.7)
[2021-12-28 09:27] LABS: Alanine Aminotransferase 32 U/L (16-63); Albumin Level 3.7 g/dL (3.4-5.0); Alkaline Phosphatase 69 U/L (46-116); Anion Gap 7 mmol/L (8-16); Aspartate Amino Transferase 13 U/L (15-37); Bilirubin,Total 0.7 mg/dL (0.00-1.00); Blood Urea Nitrogen 41 mg/dL (7-18); Calcium 9.9 mg/dL (8.5-10.1); Carbon Dioxide 30 mmol/L (21-32); Chloride 102 mmol/L (98-108); Estimated Glomerular Filt Rate 57; Glucose 182 mg/dL (70-99); Osmolality Calculated 303 mOsm/kg (285-295); Potassium 4.8 mmol/L (3.5-5.1); Sodium 139 mmol/L (136-145); Total Protein 7.4 g/dL (6.4-8.2)
== END 2021-12-28 08:55 | disposition home or self-care (01) ==
LOC: CHSLAB 08:57
PROVIDERS: PCP Family Medicine; Visit Provider Family Medicine
DX: U07.1 COVID-19 (principal); E11.9 Type 2 diabetes mellitus without complications
CPT/HCPCS: 36415; 80053; 83036; 85027

== ENCOUNTER 2022-01-16 14:53 | Outpatient (CLI) | payer MEDICARE, OTHER, SELFPAY ==
[2022-01-16 15:10] LABS: Basophils Absolute Auto 0.02 K/mm3 (0.00-0.10); Basophils Percent Auto 0.3 % (0.0-1.0); Eosinophils Absolute Auto 0.12 K/mm3 (0.02-0.50); Eosinophils Percent Auto 1.6 % (1.0-6.0); Hematocrit 34.6 % (37.0-46.0); Hemoglobin 11.5 g/dL (12.4-15.3); Immature Granulocyte Absolute 0.08 K/mm3 (0.00-0.00); Lymphocytes Absolute Auto 1.42 K/mm3 (1.10-4.50); Lymphocytes Percent Auto 18.4 % (18.0-42.0); Mean Corpuscular HGB Conc 33.2 g/dL (32.0-36.0); Mean Corpuscular Volume 93.3 fL (78.0-102.0); Mean Platelet Volume 8.3 fl (8.7-11.0); Monocytes Absolute Auto 0.81 K/mm3 (0.10-0.90); Monocytes Percent Auto 10.5 % (2.0-11.0); Neutrophils Absolute Auto 5.3 K/mm3 (1.7-7.2); Neutrophils Percent Auto 68.2 % (50.0-70.0); Platelet Count Result 117 K/mm3 (150-420); Red Blood Count 3.71 M/mm3 (4.70-6.10); White Blood Count 7.7 K/mm3 (4.8-10.8)
[2022-01-16 15:26] LABS: MALB Creatinine Ratio 9.4 mg/g (0-30); Microalbumin Urine Random 23.9 mg/L
[2022-01-16 15:52] LABS: Alanine Aminotransferase 26 U/L (16-63); Albumin Level 3.6 g/dL (3.4-5.0); Alkaline Phosphatase 69 U/L (46-116); Anion Gap 10 mmol/L (8-16); Aspartate Amino Transferase 13 U/L (15-37); Bilirubin,Total 0.8 mg/dL (0.00-1.00); Blood Urea Nitrogen 20 mg/dL (7-18); Calcium 9.1 mg/dL (8.5-10.1); Carbon Dioxide 28 mmol/L (21-32); Chloride 103 mmol/L (98-108); Cholesterol 125 mg/dL (0-200); Estimated Glomerular Filt Rate > 60; Glucose 208 mg/dL (70-99); HDL Direct 51 mg/dL (40-60); LDL Cholesterol Calculated 47 mg/dL (<130); Osmolality Calculated 300 mOsm/kg (285-295); Potassium 4.4 mmol/L (3.5-5.1); Sodium 141 mmol/L (136-145); Thyroid Stimulating Hormone 2.61 uIU/mL (0.36-3.74); Triglycerides 135 mg/dL (0-150); Vitamin B12 570 pg/mL (193-986)
[2022-01-16 15:57] LABS: CRP < 0.5 mg/dL (0.0-0.9); Folic Acid < 0.5 ng/mL (8.6->20)
[2022-01-19 21:35] LABS: Vitamin D 25 Hydroxy 37 ng/mL (30-100)
== END 2022-01-16 14:54 | disposition home or self-care (01) ==
LOC: CHSLAB 14:55
PROVIDERS: PCP Nurse Practitioner Family; Visit Provider Nurse Practitioner Family
DX: R53.83 Other fatigue (principal); R10.9 Unspecified abdominal pain; E78.2 Mixed hyperlipidemia; Z87.898 Personal history of other specified conditions; Z79.899 Other long term (current) drug therapy
CPT/HCPCS: 36415; 80053; 80061; 82043; 82306; 82607; 82746; 83993; 84443; 85025; 86140

== ENCOUNTER 2022-01-18 08:17 | Outpatient (CLI) | payer MEDICARE, SELFPAY ==
[2022-01-18 08:49] LABS: Occult Blood Negative (Negative)
[2022-01-27 21:06] LABS: Calprotectin, Stool 214 mcg/g
== END 2022-01-18 08:18 | disposition home or self-care (01) ==
LOC: CHSLAB 08:19
PROVIDERS: Nurse Practitioner Family; PCP Family Medicine; Visit Provider Family Medicine
DX: R53.83 Other fatigue (principal)
CPT/HCPCS: 83993

== ENCOUNTER 2022-03-05 15:40 | Outpatient (CLI) | payer MEDICARE, OTHER, SELFPAY ==
--- NOTE | ~2022-03-05 | XR_ITS ---
EXAMINATION:XR_CERV2-3V_CR DATE: 03/05/2022 16:25 INDICATION: Chronic posterior neck pain TECHNIQUE: AP, lateral, lateral swimmers and odontoid views of the cervical spine are provided. COMPARISON: None FINDINGS: C4-C6 anterior spinal fusion with anterior plate and screw fixation. Sagittal alignment is normal. Mi ld cervical levocurvature. Odontoid is intact. Mild atlantoaxial osteoarthritis. Vertebral body heigh ts are normal. Moderate to severe disc height loss at C6-C7. There are small sized posterior and mode rate sized anterior endplate osteophytes at this level the former resulting in mild central canal loren nosis. Multilevel severe cervical facet osteoarthritis with more prominent hypertrophic changes on th e right. Prevertebral soft tissues are normal. Visualized apices of lungs are clear. IMPRESSION: 1. Mild cervical levocurvature with intact C4-C6 instrumented anterior spinal fusion. 2. Cervical spondylosis with moderate to severe degenerative disc disease at C6-C7 and multilevel sev ere bilateral facet osteoarthritis. Reviewed, dictated and finalized at location A. ACT ACID PLANT OPERATOR IMPRESSION: 1. Mild cervical levocurvature with intact C4-C6 instrumented anterior spinal f usion. 2. Cervical spondylosis with moderate to severe degenerative disc disease at C6 -C7 and multilevel severe bilateral facet osteoarthritis.
--- NOTE | ~2022-03-05 | XR_ITS ---
EXAM: XR elbow RT 2V DATE: 03/05/2022 16:24 HISTORY: M25.521 - Pain in posterior right elbow x 2 months no injury . COMPARISON: None available. FINDINGS: Normal mineralization. No fracture or dislocation. No lytic or blastic lesion. Mild degene rative change at the elbow joint. No erosion or periosteal change. Soft tissues within normal limits. IMPRESSION: No acute osseous finding in the right elbow. Reviewed, dictated and finalized at location K. OLOGY NURSE
--- NOTE | ~2022-03-05 | XR_ITS ---
EXAM: XR shoulder RT min 2V DATE: 03/05/2022 16:24 HISTORY: Pain in lateral right shoulder x1-2 months no injury . COMPARISON: None available. FINDINGS: Cervical hardware. Normal mineralization. No fracture or dislocation. No lytic or blastic l esion. Mild AC joint and moderate glenohumeral joint degenerative change. Small fractured osteophyte along the inferior glenoid rim. No erosion or periosteal change. Soft tissues within normal limits. C alcified hilar nodes. IMPRESSION: No acute osseous finding in the right shoulder. Reviewed, dictated and finalized at location K. HER TENDER HELPER
== END 2022-03-05 15:41 | disposition home or self-care (01) ==
LOC: CHSIMG 15:44
PROVIDERS: PCP Family Medicine; Visit Provider Nurse Practitioner Family
DX: M25.521 Pain in right elbow (principal); M25.511 Pain in right shoulder; Z98.1 Arthrodesis status; M43.02 Spondylolysis, cervical region; M50.323 Other cervical disc degeneration at C6-C7 level; M85.88 Other specified disorders of bone density and structure, other site
CPT/HCPCS: 72040; 73030; 73070

== ENCOUNTER 2022-03-11 00:38 | Day surgery (SDC) | payer MEDICARE, OTHER, SELFPAY ==
[2022-03-05 14:37] VITALS: BMI 27.3
[2022-03-11 09:55] VITALS: BP 109/66; PULSE 89; RESP 20; TEMP 36.2; O2SAT 98
--- NOTE | 2022-03-11 10:00 | WPDHPUPDATE1 ---
History and Physical Update Update Date/Time: 03/11/22 10:00 History and Physical has been reviewed, including an updated exam of the patient. There are NO changes in the patient's condition. Risks, benefits, and alternatives have been discussed and questions answered. Patient agrees to proceed with procedure.
[2022-03-11] MEDS: LACTATED RINGERS 1,000 ML 150 ML IV CONT (10:15)
[2022-03-11 10:17] LABS: Glucose Point of Care 206 mg/dl (65-105)
--- NOTE | 2022-03-11 10:57 | WPDANESEPPF ---
Anes - Initial Pre Proc Eval Procedure: Operation Date: 03/11/22 11:15 Proposed Procedures p Esophagogastroduodenoscopy & Colonoscopy - Madhav Cervantes MD Date/Time: 03/11/22 10:57 Surgeon: Madhav Cervantes MD Pre Op Diagnosis: fecal abnormalities, hx colon polyps, weightloss Patient Data Age: 76 Gender: M Height: 1.73 m Weight: 78.8 kg Last Vital Signs Temp 97.1 F L 03/11/22 09:55 Pulse 89 03/11/22 09:55 Resp 20 03/11/22 09:55 BP 109/66 03/11/22 09:55 Pulse Ox 98 03/11/22 09:55 O2 Del Method Room Air 03/11/22 09:55 Allergies Allergy/AdvReac Type Severity Reaction Status Date / Time mirtazapine Allergy Intermediate legs shake Verified 03/11/22 09:54 Home Medications Medication Instructions Recorded Confirmed Type aspirin 81 mg tablet,delayed 81 mg PO DAILY 07/05/20 03/05/22 History release clopidogrel 75 mg tablet 75 mg PO DAILY 07/05/20 03/05/22 History pantoprazole 40 mg tablet,delayed 40 mg PO QAM 08/11/20 03/05/22 History release (Protonix) albuterol sulfate 90 mcg/actuation See Rx Instructions .Route 08/15/21 03/05/22 Rx aerosol inhaler .COMPLEX #8.5 ea fluticasone propionate 50 See Rx Instructions .Route 08/15/21 03/05/22 Rx mcg/actuation nasal .COMPLEX #16 mL spray,suspension capsaicin 0.075 % topical cream See Rx Instructions .Route 09/24/21 03/05/22 Rx (Arthritis Pain Relief (capsaicin)) .COMPLEX #57 grams tramadol 50 mg tablet 50 mg PO Q12H PRN pain #14 tabs 01/21/22 03/05/22 Rx folic acid 1 mg tablet 1 mg PO DAILY #90 tabs 01/23/22 03/05/22 Rx blood sugar diagnostic (Advanced #100 ea 01/24/22 03/01/22 Rx Glucose Meter Test Strips) tizanidine 2 mg tablet See Rx Instructions .Route 02/07/22 03/05/22 Rx .COMPLEX #30 tabs fluticasone propionate 45 See Rx Instructions .Route 03/01/22 03/05/22 Rx mcg-salmeterol 21 mcg/actuation .COMPLEX #12 ea HFA inhaler (Advair HFA) sodium,potassium,mag sulfates 17.5 See Rx Instructions PO .COMPLEX 03/01/22 03/05/22 Rx gram-3.13 gram-1.6 gram oral soln #354 mL (Suprep Bowel Prep Kit) empagliflozin 25 mg tablet 25 mg PO DAILY #90 tabs 03/04/22 03/05/22 Rx atorvastatin 20 mg tablet 20 mg PO DAILY 03/05/22 03/05/22 History carvedilol 6.25 mg tablet 3.125 mg PO BID 03/05/22 03/11/22 History doxazosin 8 mg tablet 8 mg PO DAILY 03/05/22 03/05/22 History finasteride 5 mg tablet 5 mg PO HS 03/05/22 03/05/22 History gabapentin 300 mg capsule 300 mg PO HS 03/05/22 03/05/22 History glipizide 5 mg tablet 5 mg PO DAILY 03/05/22 03/05/22 History lisinopril 5 mg tablet 5 mg PO DAILY #90 tabs 03/05/22 Rx pioglitazone 30 mg tablet 30 mg PO DAILY 03/05/22 03/05/22 History psyllium husk 0.52 gram capsule 1 g PO DAILY 03/05/22 03/05/22 History (Daily Fiber) Laboratory Tests 03/11/22 10:07 POC Capillary Glucose 206 mg/dl H mg/dl (65-105) Patient hx anesthesia problems: none Family hx anesthesia problems: none Results Review: All pre-operative results and documents have been reviewed as part of the pre-operative evaluation. [facility] Past Medical History Medical History Asthma Coronary artery disease Fusion of lumbar spine (~2013) Hernia Lumbar disc herniation Sarcoidosis Surgical History Surgical History H/O left inguinal hernia repair H/O lumbosacral spine surgery History of cardiac cath April, with stent History of cholecystectomy History of heart artery stent April, History of tonsillectomy and adenoidectomy Family History Family History Father Diabetes mellitus Hypertension Family history of elevated blood lipids Family history of cardiovascular disease Acute myocardial infarction Mother Diabetes mellitus Hypertension Family history of elevated blood lipids Acute myocardial infarction Family history of ch
--- NOTE | 2022-03-11 11:15 | SUR.OPER ---
EGD: [id number] Colonoscopy started at 1115.
[2022-03-11 11:35] VITALS: BP 101/65; PULSE 68; RESP 20; O2SAT 97
[2022-03-11 11:45] VITALS: BP 99/63; PULSE 70; RESP 20; O2SAT 95
[2022-03-11 11:53] VITALS: BP 101/60; PULSE 67; RESP 20; O2SAT 92
== END 2022-03-11 12:20 | disposition home or self-care (01) ==
PROVIDERS: PCP Family Medicine; Visit Provider Internal Medicine Gastroenterology
PROC: 0DJ08ZZ Inspection of Upper Intestinal Tract, Via Natural or Artificial Opening Endoscopic (ICD-10-PCS; CPT 43235; principal; 2022-03-11 11:15)
DX: R19.5 Other fecal abnormalities (principal); R10.84 Generalized abdominal pain; R63.4 Abnormal weight loss; Z86.010 Personal history of colon polyps; J45.909 Unspecified asthma, uncomplicated; I25.10 Atherosclerotic heart disease of native coronary artery without angina pectoris; Z95.1 Presence of aortocoronary bypass graft; Z95.5 Presence of coronary angioplasty implant and graft; Z87.891 Personal history of nicotine dependence; Z79.02 Long term (current) use of antithrombotics/antiplatelets; Z79.82 Long term (current) use of aspirin; Z79.84 Long term (current) use of oral hypoglycemic drugs; Z79.51 Long term (current) use of inhaled steroids
CPT/HCPCS: 45380; 43239; 82948; 87081; 88305; J2704; J7120

== ENCOUNTER 2022-03-26 08:50 | Outpatient (CLI) | payer MEDICARE, OTHER, SELFPAY ==
--- NOTE | ~2022-03-26 | XR_ITS ---
EXAMINATION: XR small bowel follow through DATE: 03/26/2022 09:57 INDICATION: Other fecal abnormalities. TECHNIQUE: Oral contrast was administered, and a time course of radiographs of the abdomen was obtain ed. Fluoroscopy of the small bowel was performed. Fluoroscopy exposure time was 0.2 minutes. The tota l number of images was 9. COMPARISON: CT abdomen and pelvis 08/15/2020 FINDINGS: There are no dilated loops of bowel. There is no abnormal mass or stricture. Transit time from the st omach to proximal colon was approximately 30 minutes. There are changes of anterior and posterior fus ion procedures in lumbar spine. IMPRESSION: 1. Normal small bowel series. Reviewed, dictated and finalized at location A. ER OPERATOR
== END 2022-03-26 08:51 | disposition home or self-care (01) ==
PROVIDERS: PCP Family Medicine; Visit Provider Internal Medicine Gastroenterology
DX: R19.5 Other fecal abnormalities (principal)
CPT/HCPCS: 74250

== ENCOUNTER 2022-11-28 20:02 | Outpatient (CLI) | payer MEDICARE, OTHER, SELFPAY ==
--- NOTE | 2022-12-09 19:33 | WPDSLEEPSTUD ---
Sleep Study Date of Study: 11/28/22 Ordering Provider: Cipriano Del Cid APRN Interpreting Physician: Oksana France MD Sleep Study Type: Split Polysomnogram Height: 1.75 m Weight: 84.368 kg Body Mass Index: 27.4 Neck Circumference (inches): 15 [place]: 7 Reason for Sleep Study Known obstructive sleep apnea, * 03/26/2016 - split night study, AHI 6.3, lowest saturation 90%, no REM; CPAP was titrated to 6 cm water pressure * 10/13/2009- BiPAP titration, optimal pressure 01/30. Sleep History Gavin Fenton is a 77-year-old man with obstructive sleep apnea, does not like wearing CPAP. He had low saturation on a nocturnal oximetry, and this study was through the [facility] [place] his nebulizer. This led to a discussion about his sleep apnea, and he is willing to have another sleep evaluation. He occasionally snores, occasionally snores loudly enough that others complain. He rarely has trouble sleeping when he has a cold. He never wakes up gasping for breath during the night. He rarely has breathing problems at night. He rarely notices his heart pounding or beating irregularly during the night. He occasionally falls asleep during the day. He occasionally falls asleep involuntarily, rarely falls asleep while driving. He never experiences loss of muscle tone with strong emotion. He never has daytime difficulty at work due to excessive sleepiness. He never feels paralyzed on waking or falling asleep. He never experiences vivid dreams upon waking or falling asleep. He never feels afraid of going to sleep. He never has nightmares. He occasionally recalls his dreams. He occasionally has thoughts racing through his mind. He never feels sad or depressed. He never feels anxiety. He rarely notices parts of his body jerk. He rarely kicks during the night. He never feels crawling or aching feelings in his legs. He occasionally feels leg pain at night. He never has morning jaw pain, occasionally grinds his teeth at night. He occasionally feels bothered by pain during the day, occasionally awakened by pain during the night. He never wakes up feeling stiff in the morning, and he occasionally wakes feeling sore or achy or waking. He occasionally awakens with pain in his neck, spine, or joints. He has memory problems and sexual problems. Normal bedtime is 2:00a.m., usually falling asleep within 15 minutes, waking 1-2 times at night, waking between 6:00 a.m.to 8:00 a.m., He keeps the same schedule on weekends. He estimates getting between 4-6 hoursof sleep at night. Hetakes naps in the afternoon or evenings, and a short nap 10-15 minutes long may be refreshing. Habits:??Tobacco:quit 50 years ago. Caffeine:10-20 oz a day. Alcohol:none. Recreational substances: none [facility] Past Medical History Medical History (Updated 12/09/22 @ 20:11 by Oksana France MD) Asthma Asthma Coronary artery disease COVID Elevated fecal calprotectin Fatigue Fusion of lumbar spine (~2013) Hernia Long COVID Lumbar disc herniation Obstructive sleep apnea Right elbow pain Sarcoidosis Urinary symptom or sign Visit for suture removal Surgical History Surgical History H/O left inguinal hernia repair H/O lumbosacral spine surgery History of cardiac cath April, with stent History of cholecystectomy History of heart artery stent April, History of tonsillectomy and adenoidectomy Family History Family History Father Diabetes mellitus Hypertension Family history of elevated blood lipids Family history of cardiovascular disease Acute myocardial infarction Mother Diabetes mellitus Hypertension Family history of elevated blood lipids Acute myocardial infarction Family history of chronic obstructive pulmonary disease Sibling Diabetes mellitus Hypertension Family history of elevated blood lipids Other Family history of kidney dise
[2022-12-13 15:16] VITALS: BMI 27.4
== END 2022-11-29 06:00 | disposition home or self-care (01) ==
LOC: CHSCSM 20:03
PROVIDERS: PCP Family Medicine; Visit Provider Nurse Practitioner Family
DX: G47.33 Obstructive sleep apnea (adult) (pediatric) (principal)
CPT/HCPCS: 95811

== ENCOUNTER 2022-12-30 10:04 | Outpatient (RCR) | payer MEDICARE, OTHER, SELFPAY ==
--- NOTE | 2022-12-30 11:15 | PTOPEVAL1 ---
Assessment and note entered by Gavin Wilson Evaluation Information Assessment Status Evaluation Diagnosis generalized weakness Onset 12/25/22 Subjective Information Pt. reports that a little over 1 year ago he started to developing cramping into the left leg. He reports that pain continued to worsen over the past year. He reports he recently got into the the specialist who could not explain why he developed leg pain, but was placed on steroids. He reports that the steroids helped the mm. pain to improve. He reports that he had procedures to work on the veins and nerves, but not relief from constant numbness in both feet and aching in the left leg. He reports he only drives locally. He states that he uses a cane for ambulation. He reports that he has had 2 falls recently while out in the community. He recalls trying to get up a concrete curb and fell, and the 2nd fall he was bending over to cook pickled meat his cane. He reports that he does have a described rollator walker for at home. He reports that his goal is to improve his balance and walking to prevent any further falling. Reported Pain Level Pain Score 7: Self Report Assessment PT Clinical Summary Pt. is a 77 year old male with generalized l.e. weakness. He presents with high fall risk on this date, impaired gait mechanics, impaired balance, impaired l.e. strength and functional decline. Continued skilled PT is indicated in order to improve these areas to allow the pt. to be able to safely complete all IADL's. Plan of Care Interventions Gait Training,Manual Therapy,Neuro Re-education, Patient/Caregiver Educati,Therapeutic Activities, Therapeutic Exercise PT Services Indicated Yes Treatment Frequency and 3x/week x 12 visits Duration These treatments will address the objective and functional deficits as defined above. The patient will be advanced safely and appropriately in order for the patient to progress towards his/her prior level of function. Additional exercises will be introduced and as well as a comprehensive home exercise program upon discharge, if needed, ?to ensure carryover of functional gains achieved in the clinic. This treatment plan has been reviewed and agreement upon by the patient.
--- NOTE | 2022-12-30 11:17 | OPREHPOC ---
Outpatient Therapy Plan of Care This is a Multidisciplinary Plan of Care that may contain components documented by all disciplines (PT, OT, and ST.) PT Problem 1 PT Problem #1 Knowledge Deficit PT Goal 1 Goal Pt. will be independent with a HEP addressing strength and functional mobility. Target Visit 2 PT Problem 2 PT Problem #2 Impaired Gait PT Goal 1 Goal Pt. will demonstrates improved stride length passing the stance phase extremity with the swing phase extremity. Target Visit 12 PT Problem 3 PT Problem #3 Impaired Functional Mobil PT Goal 1 Goal Pt. will improve his Tinetti score to 19 or greater indicating improved safety. Target Visit 12 PT Problem 4 PT Problem #4 Impaired Functional Mobil PT Goal 1 Goal Pt. will demonstrate ability to walk a distance of 700' in 6 minutes indicating adequate dinorah and gait efficiency. PT Problem 5 PT Problem #5 Impaired Functional Mobil PT Goal 1 Goal Pt. will report no incident of a fall in a 4-6 week period.
--- NOTE | 2023-01-22 10:15 | OPREHPOC ---
Outpatient Therapy Plan of Care This is a Multidisciplinary Plan of Care that may contain components documented by all disciplines (PT, OT, and ST.) PT Problem 1 PT Problem #1 Knowledge Deficit PT Goal 1 Goal Pt. will be independent with a HEP addressing strength and functional mobility. Target Visit 2 Progress Met PT Problem 2 PT Problem #2 Impaired Gait PT Goal 1 Goal Pt. will demonstrates improved stride length passing the stance phase extremity with the swing phase extremity. Target Visit 12 Progress Met PT Problem 3 PT Problem #3 Impaired Functional Mobil PT Goal 1 Goal Pt. will improve his Tinetti score to 19 or greater indicating improved safety. progressed improve tug to under 20 seconds improve 5x sit to stand to under 20 seconds Target Visit 12 Progress Not Met PT Problem 4 PT Problem #4 Impaired Functional Mobil PT Goal 1 Goal Pt. will demonstrate ability to walk a distance of 700' in 6 minutes indicating adequate dinorah and gait efficiency. met, progress to achieve 800ft Target Visit 12 Progress Partially Met PT Problem 5 PT Problem #5 Impaired Functional Mobil PT Goal 1 Goal Pt. will report no incident of a fall in a 4-6 week period. Target Visit 12 Progress Partially Met
--- NOTE | 2023-01-22 10:15 | PTOPPROGNS ---
Assessment and note entered by JT File, PT Evaluation Information Assessment Status Progress Diagnosis generalized weakness Onset 12/25/22 Subjective Information patient reports he feels Alright today. he reports feeling his walking, balance, and strength have improved, but the L LE is still weak and numb. Assessment PT Clinical Summary mr. huggins is a 77 yo man who presents to skilled PT for his 10th skilled therapy visit. he presents today with improved ambulation mechanics, improved ambulation speed, improved balance, and no falls. he has met goals for HEP performance step/stride length. he has made progress towards all other goals, but would benefit from continued skilled PT to further improve objective/functional deficits to achieve remaining goals for skilled PT. he continues to display a high fall risk per the tinetti, 5x sit to stand, and TUG tests today. Plan of Care Interventions Gait Training,Manual Therapy,Neuro Re-education, Patient/Caregiver Educati,Therapeutic Activities, Therapeutic Exercise PT Services Indicated Yes Treatment Frequency and continue with initial POC Duration These treatments will address the objective and functional deficits as defined above. The patient will be advanced safely and appropriately in order for the patient to progress towards his/her prior level of function. Additional exercises will be introduced and as well as a comprehensive home exercise program upon discharge, if needed, ?to ensure carryover of functional gains achieved in the clinic. This treatment plan has been reviewed and agreement upon by the patient.
--- NOTE | 2023-01-28 11:45 | OPREHPOC ---
Outpatient Therapy Plan of Care This is a Multidisciplinary Plan of Care that may contain components documented by all disciplines (PT, OT, and ST.) PT Problem 1 PT Problem #1 Knowledge Deficit PT Goal 1 Goal Pt. will be independent with a HEP addressing strength and functional mobility. Target Visit 2 Progress Met PT Problem 2 PT Problem #2 Impaired Gait PT Goal 1 Goal Pt. will demonstrates improved stride length passing the stance phase extremity with the swing phase extremity. Target Visit 12 Progress Met PT Problem 3 PT Problem #3 Impaired Functional Mobil PT Goal 1 Goal Pt. will improve his Tinetti score to 19 or greater indicating improved safety. -progress towards improve tug to under 20 seconds -progress towards improve 5x sit to stand to under 20 seconds - progress towards Target Visit 12 Progress Not Met PT Problem 4 PT Problem #4 Impaired Functional Mobil PT Goal 1 Goal Pt. will demonstrate ability to walk a distance of 800' in 6 minutes indicating adequate dinorah and gait efficiency. -progressing towards Target Visit 12 Progress Partially Met PT Problem 5 PT Problem #5 Impaired Functional Mobil PT Goal 1 Goal Pt. will report no incident of a fall in a 4-6 week period. Target Visit 12 Progress Partially Met
--- NOTE | 2023-01-28 11:45 | PTOPPROG ---
Assessment and note entered by Isis Parish, PT Evaluation Information Assessment Status Progress Diagnosis generalized weakness Onset 12/25/22 Subjective Information Gavin Fenton reports he has not had any falls since starting PT. He is noting some improvements in his strength but he still feels weak. He uses his walker most of the time and occasionally uses a cane. 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 Assessment PT Clinical Summary Gavin Fenton has completed 12 skilled PT visits for general weakness. He is reporting mild improvements in his strength and balance but still feels weak. He has improved his Tinetti score from a 10 to a 15 out of 28 and he demonstrates improved left LE strength. Despite these improvements, he continues to demonstrate a high fall risk per the Tinetti, TUG, and 5x sit to stand tests. He will continue to benefit from skilled PT to further improve strength and balance . Plan of Care Interventions Gait Training,Neuro Re-education,Therapeutic Activities,Therapeutic Exercise PT Services Indicated Yes Treatment Frequency and 2 times a week for 8 visits Duration These treatments will address the objective and functional deficits as defined above. The patient will be advanced safely and appropriately in order for the patient to progress towards his/her prior level of function. Additional exercises will be introduced and as well as a comprehensive home exercise program upon discharge, if needed, ?to ensure carryover of functional gains achieved in the clinic. This treatment plan has been reviewed and agreement upon by the patient.
--- NOTE | 2023-03-07 11:07 | OPREHPOC ---
Outpatient Therapy Plan of Care This is a Multidisciplinary Plan of Care that may contain components documented by all disciplines (PT, OT, and ST.) PT Problem 1 PT Problem #1 Knowledge Deficit PT Goal 1 Goal Pt. will be independent with a HEP addressing strength and functional mobility. Target Visit 2 Progress Met PT Problem 2 PT Problem #2 Impaired Gait PT Goal 1 Goal Pt. will demonstrates improved stride length passing the stance phase extremity with the swing phase extremity. Target Visit 12 Progress Met PT Problem 3 PT Problem #3 Impaired Functional Mobil PT Goal 1 Goal Pt. will improve his Tinetti score to 19 or greater indicating improved safety. -progress towards improve tug to under 20 seconds -progress towards improve 5x sit to stand to under 20 seconds - progress towards Target Visit 12 Progress Not Met PT Problem 4 PT Problem #4 Impaired Functional Mobil PT Goal 1 Goal Pt. will demonstrate ability to walk a distance of 800' in 6 minutes indicating adequate dinorah and gait efficiency Target Visit 12 Progress Partially Met PT Problem 5 PT Problem #5 Impaired Functional Mobil PT Goal 1 Goal Pt. will report no incident of a fall in a 4-6 week period. Target Visit 12 Progress Not Met
--- NOTE | 2023-03-07 11:07 | PTOPDC ---
Assessment and note entered by Geno Elias DPT Evaluation Information Assessment Status Discharge Diagnosis generalized weakness Onset 12/25/22 Subjective Information Patient reports he has not had any falls since last re-assessment. He reports he improved overall and is feeling a little better since start of PT. He reports he is using he walker at all times. He reports he has been compliant with HEP most days of the week. Reported Pain Level Pain Score 0,3: Self Report Assessment PT Clinical Summary Mr. Fenton was seen for 20 visits of skilled PT. He progressed towards goals but since last re- evaluation she he has made limited objective progress. He has made progress in balance and gait but continues to demonstrate increased fall risk. He reports he is independent with HEP and will be discharged at this time. Plan of Care PT Services Indicated No
== END 2023-03-07 16:02 | disposition home or self-care (01) ==
LOC: CHSPT 10:04
PROVIDERS: PCP Family Medicine; Visit Provider Nurse Practitioner Family
DX: R53.1 Weakness (principal)
CPT/HCPCS: 97110; 97112; 97161; 97530; 97750

== ENCOUNTER 2023-05-26 09:11 | Outpatient (RCR) | payer MEDICARE, OTHER, SELFPAY ==
--- NOTE | 2023-05-26 10:04 | OPREHPOC ---
Outpatient Therapy Plan of Care This is a Multidisciplinary Plan of Care that may contain components documented by all disciplines (PT, OT, and ST.) PT Problem 1 PT Problem #1 Knowledge Deficit PT Goal 1 Goal Independent with a HEP addressing strength and stability. Target Visit 2 PT Problem 2 PT Problem #2 Impaired Balance PT Goal 1 Goal Improve tinetti score to 19 or greater Improve 5 time sit to stand to less than 20 seconds Target Visit 12 PT Problem 3 PT Problem #3 Impaired Gait PT Goal 1 Goal Complete the 6 minute walk test with a distance of 700'. Target Visit 12 PT Problem 4 PT Problem #4 Impaired Strength PT Goal 1 Goal Pt. will present with 4+/5 gross l.e. strength
--- NOTE | 2023-05-26 10:08 | PTOPEVAL1 ---
Assessment and note entered by Gavin Wilson Evaluation Information Assessment Status Evaluation Diagnosis lumbar radiculopathy, unsteady gait Onset 05/25/22 Subjective Information Pt. reports he developed low back pain about a year ago. He states that he has a long hx of neck and back pain. He states that he has had previous fusion in the low back. He reports current pain radiates across the low back and into the buttock and legs. He states that he can only stand for about 5 minutes currently due to pain. he reports that his daughter is currently going to the store for him. He states that he also gets pain increase with long periods of sitting. He reports that he can sit for about 15 minutes due to pain increase. He denies any recent falls. He reports that that both feet are totally numb. He reports that his goal is to reduce his pain and improve his balance. Reported Pain Level Pain Score 5: Self Report Assessment PT Clinical Summary Pt. is a 77 year old male who enters the clinic with low back pain and impaired balance. He presents with high fall risk, impaired gait, impaired balance, generalized l.e. weakness, impaired flexibility, functional decline and pain. Continued skilled PT is indicated in order to improve these areas to allow the pt. to participate in all IADL's without limitation. Plan of Care Interventions Electrical Stimulation,Gait Training,Hot Pack/Cold Pack,Manual Therapy,Neuro Re-education,Patient/ Caregiver Education,Therapeutic Activities, Therapeutic Exercise PT Services Indicated Yes Treatment Frequency and 3x/week x 12 visits Duration These treatments will address the objective and functional deficits as defined above. The patient will be advanced safely and appropriately in order for the patient to progress towards his/her prior level of function. Additional exercises will be introduced and as well as a comprehensive home exercise program upon discharge, if needed, ?to ensure carryover of functional gains achieved in the clinic. This treatment plan has been reviewed and agreement upon by the patient.
--- NOTE | 2023-05-29 07:06 | PCPTNOTE ---
Patient states that he can't make it today. Rescheduled for next week.
--- NOTE | 2023-06-18 12:04 | OPREHPOC ---
Outpatient Therapy Plan of Care This is a Multidisciplinary Plan of Care that may contain components documented by all disciplines (PT, OT, and ST.) PT Problem 1 PT Problem #1 Knowledge Deficit PT Goal 1 Goal Independent with a HEP addressing strength and stability. Target Visit 2 Progress Met PT Problem 2 PT Problem #2 Impaired Balance PT Goal 1 Goal Improve tinetti score to 19 or greater -met Improve 5 time sit to stand to less than 20 seconds -not met Target Visit 12 Progress Partially Met Comment continue PT Problem 3 PT Problem #3 Impaired Gait PT Goal 1 Goal Complete the 6 minute walk test with a distance of 700'. -not met Target Visit 12 Progress Not Met Comment continue PT Problem 4 PT Problem #4 Impaired Strength PT Goal 1 Goal Pt. will present with 4+/5 gross l.e. strength Progress Partially Met Comment continue
--- NOTE | 2023-06-18 12:04 | PTOPPROG ---
Assessment and note entered by Isis Parish, PT Evaluation Information Assessment Status Progress Diagnosis lumbar radiculopathy, unsteady gait Onset 05/25/22 Subjective Information Gavin Fenton reports no overall change in his back pain or numbness in his leg since initiating PT. He does note improved mobility and balance since initiating PT. He feels he is benefitting from PT and would like to continue so he can at least maintain his mobility. He denies falls since initiating PT. Assessment PT Clinical Summary Gavin Fenton has completed 10 skilled PT visits for lumbar radiculopathy and unsteady gait. He is reporting no change in pain but he does feel his mobility and balance is improving. He objectively demonstrates improved lumbar AROM, improved score on the Tinetti Balance scale, and improved LE strength. He continues to have decreased lumbar AROM, decreased core and hip strength, poor balance, and decreased functional abilities. He continues to have a high fall risk. He will continue to benefit from skilled PT to further improve remaining deficits and improve function. Plan of Care Interventions Electrical Stimulation,Hot Pack/Cold Pack,Neuro Re -education,Patient/Caregiver Educati,Therapeutic Activities,Therapeutic Exercise PT Services Indicated Yes Treatment Frequency and 3 times a week for 10 visits Duration These treatments will address the objective and functional deficits as defined above. The patient will be advanced safely and appropriately in order for the patient to progress towards his/her prior level of function. Additional exercises will be introduced and as well as a comprehensive home exercise program upon discharge, if needed, ?to ensure carryover of functional gains achieved in the clinic. This treatment plan has been reviewed and agreement upon by the patient.
--- NOTE | 2023-06-23 14:14 | PCPTNOTE ---
Patient cancelled session today. Pt reports that he is not going to make it on time.
--- NOTE | 2023-07-31 13:11 | OPREHPOC ---
Outpatient Therapy Plan of Care This is a Multidisciplinary Plan of Care that may contain components documented by all disciplines (PT, OT, and ST.) PT Problem 1 PT Problem #1 Knowledge Deficit PT Goal 1 Goal Independent with a HEP addressing strength and stability. Target Visit 2 Progress Met PT Problem 2 PT Problem #2 Impaired Balance PT Goal 1 Goal Improve tinetti score to 19 or greater -not met Improve 5 time sit to stand to less than 20 seconds -not met Target Visit 12 Progress Not Met Comment . PT Problem 3 PT Problem #3 Impaired Gait PT Goal 1 Goal Complete the 6 minute walk test with a distance of 700'. met Target Visit 12 Progress Met Comment . PT Problem 4 PT Problem #4 Impaired Strength PT Goal 1 Goal Pt. will present with 4+/5 gross l.e. strength Progress Partially Met Comment .
--- NOTE | 2023-07-31 13:11 | PTOPDC ---
Assessment and note entered by JT File, PT Evaluation Information Assessment Status Discharge Diagnosis lumbar radiculopathy, unsteady gait Onset 05/25/22 Subjective Information patient reports he feels Alright today. he reports he does have a little bit of pain. Reported Pain Level Pain Score 3: Self Report Assessment PT Clinical Summary mr. huggins presents to skilled PT for his 20th skilled therapy visit. he presents with little pain today, but continued LE weakness, decreased endurance, and balance deficits. despite his continued deficits, he appears to have plateaued. he scored the same on the 5x sit to stand, a little worse on the tinetti, worse on he oswestry, but a little better in his 6 minute walk test. at this time, patient will DC skilled PT due to lack of significant progress being made, and was instructed to continue HEP at home with increased bouts of exercise and walking. Plan of Care PT Services Indicated Yes
== END 2023-07-31 13:46 | disposition home or self-care (01) ==
LOC: CHSPT 09:11
DX: M54.16 Radiculopathy, lumbar region (principal); R26.81 Unsteadiness on feet
CPT/HCPCS: 97014; 97110; 97112; 97150; 97161; 97530; G0283

== ENCOUNTER 2023-06-17 15:45 | Emergency (ER) | payer MEDICARE, OTHER, SELFPAY ==
[2023-06-17] VITALS (13 sets, daily range): BP systolic 89–125; BP diastolic 54–68; PULSE 64–85; RESP 13–22; TEMP 35.9; O2SAT 94–99
--- NOTE | ~2023-06-17 | XR_ITS ---
XR chest 1V portable 06/17/2023 16:35 Indication: Hypotension Procedure: AP portable chest Comparison: No prior studies for comparison. Findings: Heart size normal. No focal airspace disease. Small left pleural effusion. No pneumothorax. No edema. No acute osseous abnormality. Impression: 1: Small left pleural effusion. Reviewed, dictated and finalized at location B. Impression: 1: Small left pleural effusion.
--- NOTE | 2023-06-17 16:03 | ED.GENADULT ---
HPI - General Adult General Chief complaint: Unspecified Stated complaint: LOW BLOOD PRESSURE Time Seen by Provider: 06/17/23 16:03 Source: patient Mode of arrival: wheelchair Limitations: no limitations History of Present Illness HPI narrative: 77 year old male presents to the Emergency Department complaining of low blood pressure. Patient has history of hypertension. Has been taking blood pressure medications. His PCP discontinued 2 medications last week. States has felt weak and light headed at times and his blood pressure has been low. Denies chest pain, shortness of breath, nausea, vomiting, diarrhea. States he does feel thirsty. Feels he is urinating normal amount. Onset (ago): week(s) (past week) Severity: moderate Associated symptoms: denies other symptoms Related Data Home Medications Medication Instructions Recorded Confirmed aspirin 81 mg tablet,delayed 81 mg PO DAILY 07/05/20 06/17/23 release flurbiprofen sodium 0.03 % eye 1 drp ophthalmic (eye) TID 06/17/23 06/17/23 drops gabapentin 300 mg capsule See Rx Instructions .Route .COMPLEX 06/17/23 06/17/23 insulin aspart U-100 100 unit/mL See Rx Instructions .Route .COMPLEX 06/17/23 06/17/23 (3 mL) subcutaneous pen (Novolog FlexPen U-100 Insulin aspart) insulin glargine 100 unit/mL (3 24 unit subcut DAILY 06/17/23 06/17/23 mL) subcutaneous pen (Lantus Solostar U-100 Insulin) moxifloxacin 0.5 % eye drops See Rx Instructions .Route .COMPLEX 06/17/23 06/17/23 pantoprazole 40 mg tablet,delayed 40 mg PO DAILY 06/17/23 06/17/23 release prednisolone acetate 1 % eye 1 drp ophthalmic (eye) TID 06/17/23 06/17/23 drops,suspension Allergies Allergy/AdvReac Type Severity Reaction Status Date / Time mirtazapine Allergy Intermediate legs shake Verified 06/17/23 15:57 Review of Systems Review of Systems: All systems reviewed & are unremarkable except as noted in HPI and below Constitutional: Constitutional: Reports as per HPI Comments: light headed Eyes: Eyes: Reports as per HPI ENT: Reports system reviewed and no additional complaints, except as documented Cardiovascular: Cardiovascular: Reports as per HPI, Reports no additional cardiovascular complaints, Denies chest pain, Denies rapid heart rate, Reports lightheadedness, Denies palpitations and Denies dyspnea Respiratory: Respiratory: Reports as per HPI, Reports no additional respiratory complaints, Denies cough and Denies dyspnea Gastrointestinal: Gastrointestinal: Reports as per HPI, Reports no additional gastrointestinal complaints, Denies abdominal pain, Denies diarrhea, Denies nausea and Denies vomiting Genitourinary: Genitourinary: Reports no additional male genitourinary complaints, Reports as per HPI and Denies urinary frequency Musculoskeletal: Musculoskeletal: Reports no additional musculoskeletal complaints, Denies muscle weakness and Denies numbness Neurologic: Reports system reviewed and no additional complaints, except as documented, Reports as per HPI, Denies Abnormal speech present, Denies headache(s), Denies focal weakness, Denies loss of vision, Denies Sensory deficit (Neuro) and Denies tingling Comments: light headed Psychiatric: Psychiatric: Reports no additional psychiatric complaints Endocrine: Endocrine: Reports no additional endocrine complaints Hematologic/Lymphatic: Hematologic/Lymphatic: Reports no additional hematologic/lymphatic complaints Allergic/Immunologic: Allergic/Immunologic: Reports no additional allergic/immunologic complaints [facility] Past Medical History Medical History Asthma Asthma Coronary artery disease COVID Elevated fecal calprotectin Fatigue Fusion of lumbar spine (~2013) Hernia Long COVID Lumbar disc herniation Obstructive sleep apnea Right elbow pain Sarcoidosis Urinary symptom or sign Visit for suture removal Surgical History Surgical History (Reviewed 06/17/23
--- NOTE | 2023-06-17 16:08 | ECG_ITS ---
SEE SCANNED COPY FOR CONFIRMED REPORT MTDD
[2023-06-17] MEDS: SODIUM CHLORIDE 0.9% IV 1,000 ML 150 ML IV CONT (16:28)
[2023-06-17 16:29] LABS: Basophils Absolute Auto 0.06 K/mm3 (0.00-0.10); Basophils Percent Auto 0.8 % (0.0-1.0); Eosinophils Absolute Auto 0.43 K/mm3 (0.02-0.50); Eosinophils Percent Auto 5.4 % (1.0-6.0); Hematocrit 34.3 % (37.0-46.0); Immature Granulocyte Absolute 0.05 K/mm3 (0.00-0.00); Immature Granulocyte Percent A 0.6 % (0.0-0.0); Lymphocytes Absolute Auto 1.52 K/mm3 (1.10-4.50); Lymphocytes Percent Auto 19.1 % (18.0-42.0); Mean Corpuscular HGB Conc 32.1 g/dL (32-36); Mean Corpuscular Hemoglobin 29.3 pg (27.0-31.0); Mean Corpuscular Volume 91.5 fL (78.0-102.0); Mean Platelet Volume 9.3 fl (8.7-11.0); Monocytes Absolute Auto 1.01 K/mm3 (0.10-0.90); Monocytes Percent Auto 12.7 % (2.0-11.0); Neutrophils Absolute Auto 4.89 K/mm3 (1.70-7.20); Neutrophils Percent Auto 61.4 % (50.0-70.0); Platelet Count Result 160 K/mm3 (150-420); Red Blood Count 3.75 M/mm3 (4.70-6.10); Red Cell Distribution Width 14.3 % (11.6-14.4)
[2023-06-17 16:50] LABS: Alanine Aminotransferase 34 U/L (16-63); Albumin Level 3.3 g/dL (3.4-5.0); Alkaline Phosphatase 103 U/L (46-116); Anion Gap 11 mmol/L (4-12); Aspartate Amino Transferase 24 U/L (15-37); Bilirubin,Total 0.4 mg/dL (0.00-1.00); Blood Urea Nitrogen 22 mg/dL (7-18); Calcium 8.5 mg/dL (8.5-10.1); Carbon Dioxide 28 mmol/L (21-32); Chloride 103 mmol/L (98-108); Estimated CRCL calculation 41 ml/min; Estimated Glomerular Filt Rate 50; Glucose 184 mg/dL (70-99); Magnesium 1.9 mg/dL (1.8-2.4); Osmolality Calculated 302 mOsm/kg (285-295); Potassium 4.3 mmol/L (3.5-5.1); Sodium 142 mmol/L (136-145); Total Protein 7.2 g/dL (6.4-8.2)
--- NOTE | 2023-06-17 17:00 | PC.NURSE ---
PT RESTING COMFORTABLY IN BED W AT BS. NO CHANGE IN ASSESSMENT.
--- NOTE | 2023-06-17 17:45 | PC.NURSE ---
PT RESTING COMFORTABLY IN BED W AT , IV SITE D/C. PT STATES, I AM READY TO GO HOME.
== END 2023-06-17 17:58 | disposition home or self-care (01) ==
PROVIDERS: Emergency Provider Emergency Medicine; PCP Family Medicine
DX: I95.1 Orthostatic hypotension (principal); I10 Essential (primary) hypertension; Z79.82 Long term (current) use of aspirin; J45.909 Unspecified asthma, uncomplicated; I25.10 Atherosclerotic heart disease of native coronary artery without angina pectoris; G47.33 Obstructive sleep apnea (adult) (pediatric); Z87.891 Personal history of nicotine dependence
CPT/HCPCS: 36415; 71045; 80053; 83735; 84484; 85025; 93005; 96360; 99284; J7030

== ENCOUNTER 2023-08-05 12:13 | Outpatient (CLI) | payer MEDICARE, SELFPAY ==
[2023-08-05 12:43] LABS: Appearance Urine Clear (Clear); Bilirubin Urine 1+ (Negative); Blood Urine Negative (Negative); Glucose Urine UA Negative (Negative); Ketones Urine Trace (Negative); Leukocyte Esterase Ur Trace (Negative); Nitrate Urine Negative (Negative); Protein Urine 1+ (Negative); Specific Grav Ur >= 1.030 (1.010-1.020); Urobilinogen Urine 0.2 mg/dL (0.2-1.0); pH Urine 5.5 (5.0-8.0)
[2023-08-05 12:49] LABS: Creatinine Urine 450.37 mg/dL (40-278); MALB Creatinine Ratio 19.8 mg/g (0-30); Microalbumin Urine Random 89.4 mg/L
[2023-08-05 12:52] LABS: Color Urine Dark Orange (Yellow)
[2023-08-05 12:53] LABS: Add Urine Microscopic? YES; Bacteria Urine 1+ /hpf; Mucus Urine Heavy /lpf; RBC Urine None seen /hpf (0-2); Squamous Epithelial Cell Urine Noted /hpf (Few); WBC Urine 31-50 /hpf (0-3)
[2023-08-05 13:15] LABS: Basophils Absolute Auto 0.05 K/mm3 (0.00-0.10); Basophils Percent Auto 0.7 % (0.0-1.0); Eosinophils Absolute Auto 0.43 K/mm3 (0.02-0.50); Eosinophils Percent Auto 5.9 % (1.0-6.0); Hematocrit 37.2 % (37.0-46.0); Hemoglobin 11.8 g/dL (12.4-15.3); Immature Granulocyte Absolute 0.02 K/mm3 (0.00-0.00); Immature Granulocyte Percent A 0.3 % (0.0-0.0); Mean Corpuscular HGB Conc 31.7 g/dL (32-36); Mean Corpuscular Hemoglobin 28.6 pg (27.0-31.0); Mean Corpuscular Volume 90.3 fL (78.0-102.0); Mean Platelet Volume 9.5 fl (8.7-11.0); Monocytes Absolute Auto 1.08 K/mm3 (0.10-0.90); Monocytes Percent Auto 14.8 % (2.0-11.0); Neutrophils Percent Auto 56.3 % (50.0-70.0); Platelet Count Result 190 K/mm3 (150-420); Red Blood Count 4.12 M/mm3 (4.70-6.10); Red Cell Distribution Width 13.6 % (11.6-14.4); White Blood Count 7.3 K/mm3 (4.8-10.8)
[2023-08-05 13:19] LABS: Alanine Aminotransferase 36 U/L (16-63); Albumin Level 3.7 g/dL (3.4-5.0); Alkaline Phosphatase 108 U/L (46-116); Anion Gap 10 mmol/L (4-12); Aspartate Amino Transferase 28 U/L (15-37); Bilirubin,Total 0.6 mg/dL (0.00-1.00); Blood Urea Nitrogen 21 mg/dL (7-18); Carbon Dioxide 29 mmol/L (21-32); Chloride 103 mmol/L (98-108); Cholesterol 119 mg/dL (0-200); Estimated Glomerular Filt Rate 54; Glucose 185 mg/dL (70-99); HDL Direct 36 mg/dL (40-60); LDL Cholesterol Calculated 55 mg/dL (<130); Osmolality Calculated 302 mOsm/kg (285-295); Sodium 142 mmol/L (136-145); Total Protein 7.4 g/dL (6.4-8.2); Triglycerides 138 mg/dL (0-150)
== END 2023-08-05 12:14 | disposition home or self-care (01) ==
LOC: CHSLAB 12:15
PROVIDERS: PCP Family Medicine; Visit Provider Nurse Practitioner Family
DX: E11.311 Type 2 diabetes mellitus with unspecified diabetic retinopathy with macular edema (principal); E78.2 Mixed hyperlipidemia; G25.81 Restless legs syndrome; R41.0 Disorientation, unspecified
CPT/HCPCS: 36415; 80053; 80061; 81001; 82043; 85025; 87086

== ENCOUNTER 2023-08-15 12:58 | Outpatient (CLI) | payer MEDICARE, OTHER, SELFPAY ==
--- NOTE | ~2023-08-15 | CT_ITS ---
EXAMINATION: CT brain wo con DATE: 08/15/2023 13:28 INDICATION: Disorientation for one week. No known injury. TECHNIQUE: Computed tomography (CT) of the head was performed without intravenous contrast. The mA wa s adjusted according to patient size. Iterative reconstruction technique was employed. Exam dose: 68 1.00 mGy-cm total exam DLP. COMPARISON: 11/25/2018 CT head FINDINGS: Bilateral vertebral artery, basilar artery and bilateral carotid siphon internal carotid ar rachelle calcifications. There is nonspecific diminished attenuation of the cerebral white matter, likely due to chronic small vessel ischemic changes. No intracranial mass lesion or hemorrhage or recent cerebrovascular accident, midline shift or mass e ffect is detected. Moderate cerebral and cerebellar atrophy. No subdural or epidural hematoma is detected. Bilateral nasal antral windows. Slight fluid level in the dependent right maxillary antrum, slight mu coperiosteal thickening of the left maxillary antrum. The paranasal sinuses and mastoid air cells are otherwise unremarkable. No fracture or bone destruction of the cranial vault. IMPRESSION: Cerebral atherosclerosis and chronic small vessel ischemic changes of the cerebral white matter No acute intracranial finding Reviewed, dictated and finalized at Location [facility]. Reviewed, dictated and finalized at location A.
== END 2023-08-15 12:59 | disposition home or self-care (01) ==
LOC: CHSIMG 13:00
PROVIDERS: PCP Family Medicine; Visit Provider Nurse Practitioner Family
DX: R41.0 Disorientation, unspecified (principal); I67.2 Cerebral atherosclerosis
CPT/HCPCS: 70450

== ENCOUNTER 2023-08-21 12:17 | Outpatient (CLI) | payer MEDICARE, OTHER, SELFPAY ==
--- NOTE | ~2023-08-21 | US_ITS ---
EXAMINATION: US carotid duplex BI DATE: 08/21/2023 13:28 INDICATION: Cervicalgia and encephalopathy with episodes of confusion TECHNIQUE: Grayscale, color Doppler, and pulsed Doppler images of the cervical carotid arteries were obtained. The degree of vessel stenosis is placed in one of the following categories: normal, <50%, 5 0-69%, >=70% but less than near-occlusion, near-occlusion, or total occlusion. Note that percent sten osis relative to normal distal artery lumen diameter is indirectly measured from velocity measurement s as described by Reji, et al. Radiology 2003; [id number]. COMPARISON: None. FINDINGS: RIGHT: The right common carotid artery (CCA) peak systolic velocity (PSV) is 83 cm/s. The right internal car otid artery (ICA) PSV is 58 cm/s. The right ICA end-diastolic velocity (EDV) is 10 cm/s. The right IC A/CCA PSV ratio is 0.7. Grayscale and color Doppler images yield an estimate of <50% diameter reducti on from plaque in the ICA. The external carotid artery (ECA) PSV is 65 cm/s. There is antegrade flow in the right vertebral artery. LEFT: The left CCA PSV is 65 cm/s. The left ICA PSV is 53 cm/s. The left ICA EDV is 20 cm/s. The left ICA/C CA PSV ratio is 0.8. Grayscale and color Doppler images yield an estimate of <50% diameter reduction from plaque in the ICA. The ECA PSV is 69 cm/s. There is antegrade flow in the left vertebral artery. IMPRESSION: 1. <50% stenosis in the right internal carotid artery. 2. <50% stenosis in the left internal carotid artery. Reviewed, dictated and finalized at location B.
== END 2023-08-21 12:18 | disposition home or self-care (01) ==
LOC: CHSIMG 12:19
PROVIDERS: PCP Family Medicine; Visit Provider Nurse Practitioner Family
DX: R41.0 Disorientation, unspecified (principal); I67.2 Cerebral atherosclerosis; M54.2 Cervicalgia; I65.23 Occlusion and stenosis of bilateral carotid arteries
CPT/HCPCS: 93880

== ENCOUNTER 2023-11-04 15:00 | Outpatient (CLI) | payer MEDICARE, OTHER, SELFPAY ==
--- NOTE | ~2023-11-04 | CT_ITS ---
EXAMINATION: CT cervical spine wo con DATE: 11/04/2023 16:05 INDICATION: Neck pain radiating down the left arm. TECHNIQUE: Computed tomography (CT) of the cervical spine was performed without intravenous contrast. Automated exposure control and iterative reconstruction technique were employed. The dose-length pro duct was 439.53 mGy-cm. COMPARISON: CT cervical spine 02/02/2021 FINDINGS: There is a nondisplaced transverse fracture of the base of the dens. There is 10 degrees le voscoliosis of cervical spine. There are changes of anterior fusion procedure from C4 to C6 with heal ed interbody bone graft and anterior plate and screws. There is severely decreased disc height at C6- C7 and C7-T1. The following disc levels are specifically discussed: C2-C3: There is severe bilateral uncovertebral joint osteoarthritis. There is severe bilateral facet joint osteoarthritis. There is mild bilateral neural foraminal stenosis. There is mild central canal stenosis. C3-C4: There is severe right and mild left uncovertebral joint osteoarthritis. There is severe bilate ral facet joint osteoarthritis. There is moderate right and mild left neural foraminal stenosis. Ther e is mild central canal stenosis. C4-C5: There is moderate right and mild left uncovertebral joint hypertrophy. There is mild bilateral facet joint hypertrophy. There is moderate right and mild left neural foraminal stenosis. There is m ild central canal stenosis. C5-C6: There is mild bilateral uncovertebral joint hypertrophy. There is moderate bilateral facet ned nt hypertrophy. There is mild bilateral neural foraminal stenosis. There is mild central canal stenos is. C6-C7: There is mild right and severe left uncovertebral joint osteoarthritis. There is severe bilate ral facet joint osteoarthritis. There is mild right and moderate left neural foraminal stenosis. Ther e is mild central canal stenosis. C7-T1: There is moderate bilateral uncovertebral joint osteoarthritis. There is severe bilateral face t joint osteoarthritis. There is mild bilateral neural foraminal stenosis. There is no central canal stenosis. IMPRESSION: 1. Acute type II odontoid fracture. 2. Severe cervical spondylosis. 3. Anterior fusion procedure from C4 to C6. Reviewed, dictated and finalized at location A.
--- NOTE | ~2023-11-04 | CT_ITS ---
EXAMINATION: CT brain wo con DATE: 11/04/2023 16:05 INDICATION: Confusion TECHNIQUE: Computed tomography (CT) of the head was performed without intravenous contrast. Sagittal and coronal reconstructions were performed. The mA was adjusted according to patient size. Iterative reconstruction technique was employed. The dose-length product was 439.53 mGy-cm. COMPARISON: head CT dated 08/15/2023 FINDINGS: No acute intracranial hemorrhage, acute infarction or abnormal extra axial fluid collection. There is mild scattered white matter hypoattenuation consistent with chronic small vessel ischemic disease. Ventricles are normal and symmetric. No mass/mass effect. Changes of bilateral intraocular lens repla cement. The orbits and mastoid air cells are normal. Small amount of dependently layering fluid in th e bilateral maxillary sinuses which demonstrates thickened sclerotic green consistent chronic sinusit is. There are bilateral antral window procedures. IMPRESSION: 1. Normal aging brain. No acute intracranial process. Reviewed, dictated and finalized at location B.
[2023-11-04 15:19] LABS: Basophils Absolute Auto 0.03 K/mm3 (0.00-0.10); Basophils Percent Auto 0.3 % (0.0-1.0); Eosinophils Absolute Auto 0.21 K/mm3 (0.02-0.50); Eosinophils Percent Auto 2.1 % (1.0-6.0); Hematocrit 36.9 % (37.0-46.0); Hemoglobin 12.3 g/dL (12.4-15.3); Immature Granulocyte Absolute 0.05 K/mm3 (0.00-0.00); Immature Granulocyte Percent A 0.5 % (0.0-0.0); Lymphocytes Absolute Auto 1.01 K/mm3 (1.10-4.50); Mean Corpuscular HGB Conc 33.3 g/dL (32-36); Mean Corpuscular Hemoglobin 29.1 pg (27.0-31.0); Mean Corpuscular Volume 87.2 fL (78.0-102.0); Mean Platelet Volume 8.8 fl (8.7-11.0); Monocytes Absolute Auto 1.29 K/mm3 (0.10-0.90); Monocytes Percent Auto 12.7 % (2.0-11.0); Neutrophils Absolute Auto 7.53 K/mm3 (1.70-7.20); Neutrophils Percent Auto 74.4 % (50.0-70.0); Platelet Count Result 220 K/mm3 (150-420); Red Blood Count 4.23 M/mm3 (4.70-6.10); Red Cell Distribution Width 14.9 % (11.6-14.4); White Blood Count 10.1 K/mm3 (4.8-10.8)
--- NOTE | 2023-11-04 15:19 | ECG_ITS ---
Test Date: 2023-11-04 15:41:33 Measurements Intervals [place] Rate: 111 P: 42 [place]: 132 QRS: -11 QRSD: 88 T: -14 QT: 322 QTc: 439 Interpretive Statements SINUS TACHYCARDIA EARLY PRECORDIAL R/S TRANSITION VOLTAGE CRITERIA FOR LVH MINIMAL Q WAVES- LATERAL LEADS INFERIOR INFARCT, AGE INDETERMINATE BORDERLINE ST ABNORMALITY- ANTERIOR LEADS BASELINE ARTIFACT- II, III, AVL, AVF ABNORMAL ECG No previous ECG available for comparison Electronically Signed On 11-04-2023 16:20:02 CDT by Shakir Bowden D.O.
[2023-11-04 15:40] LABS: Alanine Aminotransferase 35 U/L (16-63); Albumin Level 3.2 g/dL (3.4-5.0); Alkaline Phosphatase 114 U/L (46-116); Anion Gap 7 mmol/L (4-12); Aspartate Amino Transferase 21 U/L (15-37); Bilirubin,Total 0.9 mg/dL (0.00-1.00); Blood Urea Nitrogen 20 mg/dL (7-18); Calcium 9.4 mg/dL (8.5-10.1); Carbon Dioxide 32 mmol/L (21-32); Chloride 97 mmol/L (98-108); Estimated Glomerular Filt Rate 52; Glucose 361 mg/dL (70-99); Osmolality Calculated 299 mOsm/kg (285-295); Potassium 3.9 mmol/L (3.5-5.1); Sodium 136 mmol/L (136-145); Total Protein 7.8 g/dL (6.4-8.2); Troponin I 16.8 ng/L (0.00-60.4)
[2023-11-04 17:33] LABS: Add Urine Microscopic? YES; Appearance Urine Clear (Clear); Bilirubin Urine Negative (Negative); Blood Urine Negative (Negative); Color Urine Yellow (Yellow); Glucose Urine UA 3+ (Negative); Ketones Urine Negative (Negative); Leukocyte Esterase Ur Negative LEU/UL (Negative); Nitrate Urine Negative (Negative); Protein Urine 2+ (Negative); Urobilinogen Urine Negative mg/dL (0.2-1.0)
[2023-11-04 17:34] LABS: Bacteria Urine Trace /hpf; RBC Urine None seen /hpf (0-2); Squamous Epithelial Cell Urine Rare /hpf (Few); WBC Urine None seen /hpf (0-3)
== END 2023-11-04 15:01 | disposition home or self-care (01) ==
LOC: CHSLAB 15:02
PROVIDERS: PCP Nurse Practitioner Family; Visit Provider Nurse Practitioner Family
DX: H53.8 Other visual disturbances (principal); R41.0 Disorientation, unspecified; R06.02 Shortness of breath; M54.2 Cervicalgia; S12.120A Other displaced dens fracture, initial encounter for closed fracture; M43.02 Spondylolysis, cervical region; Z98.1 Arthrodesis status; R00.0 Tachycardia, unspecified; R94.31 Abnormal electrocardiogram [ECG] [EKG]
CPT/HCPCS: 36415; 70450; 72125; 80053; 81001; 84484; 85025; 93005

== ENCOUNTER 2023-11-04 16:20 | Emergency (ER) | payer MEDICARE, OTHER, SELFPAY ==
[2023-11-04] VITALS (7 sets, daily range): BP systolic 169–185; BP diastolic 94–106; PULSE 102–115; RESP 15–24; TEMP 36.4; O2SAT 93
--- NOTE | 2023-11-04 16:31 | ED.NECK ---
HPI - Neck Pain/Injury General Chief Complaint: Neck Pain/Injury Stated Complaint: neck pian Time Seen by Provider: 11/04/23 16:31 Source: patient and family Mode of arrival: ambulatory Limitations: no limitations History of Present Illness HPI Narrative: 77 YEARS OLD WHITE MALE REFERRED TO THE EMERGENCY ROOM FROM THE RADIOLOGY DEPARTMENT BECAUSE OF CT CERVICAL SPINE SHOWED ACUTE TYPE 2 ODONTOID FRACTURE. PATIENT IS TELLING ME THAT BEEN HAVING NECK PAIN FOR THE LAST 6 DAYS, DENIED ANY SPECIFIC TRAUMA OR FALL OR ANY INJURY. WAS SEEN BY HIS FAMILY PHYSICIAN WILL ORDER CT SCAN OF THE HEAD AND CERVICAL SPINE. PATIENT COMPLAINING FOR LEFT SHOULDER PAIN AND LEFT UPPER EXTREMITY PAIN. PATIENT BEEN AMBULATORY IN THE LAST 6 DAYS, WAS DROVE BY HIS TO THE RADIOLOGY DEPARTMENT FOR IMAGING. CAME TO OUR EMERGENCY ROOM IN A WHEELCHAIR. Related Data Home Medications Medication Instructions Recorded Confirmed aspirin 81 mg tablet,delayed 81 mg PO DAILY 07/05/20 10/31/23 release flurbiprofen sodium 0.03 % eye 1 drp ophthalmic (eye) TID 06/17/23 10/31/23 drops gabapentin 300 mg capsule See Rx Instructions .Route .COMPLEX 06/17/23 10/31/23 insulin aspart U-100 100 unit/mL See Rx Instructions .Route .COMPLEX 06/17/23 10/31/23 (3 mL) subcutaneous pen (Novolog FlexPen U-100 Insulin aspart) insulin glargine 100 unit/mL (3 24 unit subcut DAILY 06/17/23 10/31/23 mL) subcutaneous pen (Lantus Solostar U-100 Insulin) pantoprazole 40 mg tablet,delayed 40 mg PO DAILY 06/17/23 10/31/23 release prednisolone acetate 1 % eye 1 drp ophthalmic (eye) TID 06/17/23 10/31/23 drops,suspension calcium polycarbophil 625 mg 1,250 mg PO DAILY 08/05/23 10/31/23 tablet (Fiber Therapy (ca polycarbophil)) clopidogrel 75 mg tablet 75 mg PO DAILY 08/05/23 10/31/23 doxazosin 8 mg tablet 8 mg PO DAILY 08/05/23 10/31/23 multivitamin (Daily Multi-Vitamin 1 tablet PO DAILY 08/05/23 10/31/23 tablet) venlafaxine 75 mg tablet 75 mg PO DAILY 08/05/23 10/31/23 Allergies Allergy/AdvReac Type Severity Reaction Status Date / Time mirtazapine Allergy Intermediate legs shake Verified 11/04/23 16:47 Review of Systems Review of Systems: All systems reviewed & are unremarkable except as noted in HPI and below PMFSH Past Medical History Medical History Asthma Asthma Coronary artery disease COVID Elevated fecal calprotectin Fatigue Fusion of lumbar spine (~2013) Hernia Long COVID Lumbar disc herniation MCI (mild cognitive impairment) Obstructive sleep apnea Parkinsonian features Right elbow pain Sarcoidosis Tachycardia Urinary symptom or sign Visit for suture removal Surgical History Surgical History H/O left inguinal hernia repair H/O lumbosacral spine surgery History of cardiac cath April, with stent History of cholecystectomy History of heart artery stent April, History of tonsillectomy and adenoidectomy Family History Family History Father Diabetes mellitus Hypertension Family history of elevated blood lipids Family history of cardiovascular disease Acute myocardial infarction Mother Diabetes mellitus Hypertension Family history of elevated blood lipids Acute myocardial infarction Family history of chronic obstructive pulmonary disease Sibling Diabetes mellitus Hypertension Family history of elevated blood lipids Other Family history of kidney disease Social History Social History Smoking status: Former smoker Tobacco type: cigarettes Second hand tobacco smoke exposure: No Alcohol intake: never Substance use: never Substance use type: does not use Lack of Transportation: No Lack of Food: Never True Current Housing: I Have Housing Concerned About Future Housing: No
--- NOTE | 2023-11-04 16:46 | PC.NURSE ---
Hard C-collar applied upon arrival to ED.
== END 2023-11-04 18:19 | disposition short-term general hospital (02) ==
PROVIDERS: Emergency Provider Emergency Medicine; PCP Nurse Practitioner Family
DX: S12.110A Anterior displaced Type II dens fracture, initial encounter for closed fracture (principal); I25.10 Atherosclerotic heart disease of native coronary artery without angina pectoris; Z79.82 Long term (current) use of aspirin; Z79.899 Other long term (current) drug therapy; Z79.4 Long term (current) use of insulin; Z87.891 Personal history of nicotine dependence; X58.XXXA Exposure to other specified factors, initial encounter
CPT/HCPCS: 36415; 70450; 72125; 80053; 81001; 84484; 85025; 93005; 99285

== ENCOUNTER 2023-12-19 18:25 | Inpatient (IN) | payer MEDICARE, OTHER, SELFPAY ==
[2023-12-19] VITALS (10 sets, daily range): BP systolic 117–192; BP diastolic 78–103; PULSE 110–122; RESP 16–33; TEMP 36.4; O2SAT 91–95
--- NOTE | ~2023-12-19 | CT_ITS ---
CT brain wo con Ordering provider: Maya Lundberg PA-C History: 78 years Male with . AMS . Comparison: November 04, 2023 Technique: CT of the head without contrast. Radiation reduction technique utilized. The dose-length product was 756.67 mGy-cm. FINDINGS: BRAIN PARENCHYMA AND CSF SPACES: Mild leukoaraiosis and diffuse cortical atrophy. Mild atheromatous d isease. No midline shift, mass effect or hemorrhage. The brain parenchyma and CSF spaces are otherwi se normal. VISUALIZED PARANASAL SINUSES: Well aerated. MASTOIDS: Well aerated. BONES: The bones appear intact. SOFT TISSUES: Visualized nasopharynx is normal. Superficial soft tissues are normal. IMPRESSION: No acute intracranial findings. Reviewed, dictated and finalized at location A.
--- NOTE | ~2023-12-19 | CT_ITS ---
EXAMINATION: CTA chest abdomen pelvis DATE: 12/22/2023 13:41 INDICATION: Anterior tachypnea. Tachycardia. TECHNIQUE: Computed tomographic angiography (CTA) of the chest, abdomen, and pelvis was performed wit h 100 mL Omnipaque-350 intravenous contrast. Automated exposure control and iterative reconstruction technique were employed. The dose-length product was 1142.80 mGy-cm. Maximum intensity projection 3D- reconstructions of the aorta and other arteries were constructed by the technologist on a separate wo rkstation. COMPARISON: Chest CT 12/19/2023 FINDINGS: CHEST CTA: Motion artifact is noted. There is mild atelectasis in the lungs. There is mild scarring in right upp er lobe. Calcified right lung nodules and calcified right hilar and mediastinal lymph nodes are consi stent with old granulomatous disease. No pleural effusion. The heart size is normal. There are avitia ry artery calcifications. No pericardial effusion. There is mild aortic atherosclerosis. There are ch anges of anterior fusion procedure in cervical spine. There is moderate thoracic spondylosis. ABDOMEN AND PELVIS CTA: Calcifications in the liver and spleen are consistent with old granulomatous disease. There are contreras es of cholecystectomy. The pancreas and adrenal glands are normal. There is cortical thinning of the kidneys. There are cysts in left kidney measuring up to 16 mm. The prostate is moderately enlarged. T he Bernstein balloon is in the prosthetic urethra. There is diffuse bladder wall thickening, likely secon warren to chronic outlet obstruction. There is a small volume of hematoma in the bladder. The appendix is normal. There are no dilated loops of bowel. There are no pathologically enlarged lymph nodes. The re is no free intraperitoneal fluid. There is a gastrostomy tube in expected position. There is sever e lumbar spondylosis. There are changes of posterior fusion procedure from L2 to L5. There are change s of anterior fusion procedures at L2-L3 and L4-L5. IMPRESSION: 1. Bernstein balloon in abnormal position in the prosthetic urethra. Small volume of hematoma in the blad maxim. Reviewed, dictated and finalized at location B. IMPRESSION: 1. Bernstein balloon in abnormal position in the prosthetic urethra. Small volume o f hematoma in the bladder.
--- NOTE | ~2023-12-19 | CT_ITS ---
CT soft tissue neck chest w Ordering provider: Maya Lundberg PA-C History: 78 years Male with . leukocytosis, tachycardia, productive cough . Comparison: None. Technique: CT soft tissues neck was performed with contrast. . Automated exposure control and iterat jazzy reconstruction technique were employed. The dose-length product was 926.88 mGy-cm. 75 mL Omnipaque 350 was given IV. Findings: LOWER HEAD: The visualized brain parenchyma, optic globes/orbits and mastoids are normal. The visua lized paranasal sinuses are well aerated. SALIVARY GLANDS: Normal. Hypodensity seen in the right lobe of the thyroid posteriorly measuring1.6 x 1.2 cm. THYROID: Normal. SUPRAHYOID DEEP SPACES: Normal. CAROTID ARTERIES: Normal. JUGULAR VEINS: Normal. TONSILS: Normal. ORAL CAVITY: Partially obscured by dental amalgam but normal as visualized. PHARYNX, LARYNX AND TRACHEA: Patent and normal. No prevertebral soft tissue swelling. Lucencies with air are seen in the area of the false vocal cord which is most likely due to the posit ioning of the patient. SUPERFICIAL SOFT TISSUES: Normal. No lymphadenopathy or neck mass. THORACIC INLET/VISUALIZED UPPER CHEST: Normal. SKELETAL: Postoperative changes in the spine. Age appropriate degenerative changes. IMPRESSION: 1. No definite abnormality seen. CT soft tissue neck chest w Ordering provider: Maya Lundberg PA-C History: 78 years Male with . leukocytosis, tachycardia, productive cough . Comparison: None. Technique: CT chest with IV contrast. Findings: VISUALIZED THORACIC INLET: Nodule in the right lower thyroid. MEDIASTINUM: Aorta/coronary arteries: Mild atheromatous disease. Heart/other: The heart is not enlarged. Lymph nodes: No mediastinal or hilar adenopathy. Calcified right hilar lymph nodes. LUNGS: Thickening of the interstitial tissues seen in the right upper lobe with minimal infiltrate wh ich may indicate early pneumonia but fibrotic changes are possible. Dependent atelectatic changes in the lower lobes. No pulmonary nodules or masses. No effusions. No pneumothorax. Calcification seen ad jacent to the right transverse fissure. VISUALIZED UPPER ABDOMEN: Status post cholecystectomy. Atrophic pancreas. Otherwise, the visualized u pper abdomen is normal. MUSCULOSKELETAL: Soft tissues: The superficial soft tissues are normal. Bones: Age appropriate degenerative changes of the spine. IMPRESSION: Interstitial thickening in the right upper lobe with minimal infiltrate. Pneumonitis versus fibrotic changes are not excluded. Follow-up advised. Reviewed, dictated and finalized at location A. IMPRESSION: 1. No definite abnormality seen. CT soft tissue neck chest w Ordering provider: Maya Lundberg PA-C History: 78 years Male with . leukocytosis, tachycardia, productive cough . Comparison: None. Technique: CT chest with IV contrast. Findings: VISUALIZED THORACIC INLET: Nodule in the right lower thyroid. MEDIASTINUM: Aorta/coronary arteries: Mild atheromatous disease. Heart/other: The heart is not enlarged. Lymph nodes: No mediastinal or hilar adenopathy. Calcified right hilar lymph nodes. LUNGS: Thickening of the interstitial tissues seen in the right upper lobe with minimal infiltrate which may indicate early pneumonia but fibrotic changes are possible. Dependent atelectatic changes in the lower lobes. No pulmonary nodul es or masses. No effusions. No pneumothorax. Calcification seen adjacent to the right transverse fissure. VISUALIZED UPPER ABDOMEN: Status post cholecystectomy. Atrophic pancreas. Other chew, the visualized upper abdomen is normal. MUSCULOSKELETAL: Soft tissues: The superficial soft tissues are normal. Bones: Age appropriate degenerative changes of the spine. IMPRESSION: Interstitial thickening in the right upper lobe with minimal infiltrate. Pneumo nitis versus fibrotic changes are not excluded. Follow-up advised.
--- NOTE | ~2023-12-19 | CT_ITS ---
EXAMINATION: CT brain wo con DATE: 12/22/2023 13:41 INDICATION: Altered mental status. TECHNIQUE: Computed tomography (CT) of the head was performed without intravenous contrast. The mA wa s adjusted according to patient size. Iterative reconstruction technique was employed. The dose-lengt h product was 681.00 mGy-cm. COMPARISON: Head CT 12/19/2023 FINDINGS: There are scattered areas of low attenuation in the cerebral white matter, which is within normal limits for the patient's age. There is no intracranial hemorrhage, acute infarction, or abnorm al intracranial mass lesion. The ventricles are normal in size. There is mild mucosal thickening in t he paranasal sinuses. There are surgical changes of the paranasal sinuses. There are likely changes o f ocular lens replacement surgeries. The mastoid air cells are normal. There is an ununited type II o dontoid fracture with screw fixation. IMPRESSION: 1. Normal aging brain. 2. Type II odontoid fracture with screw fixation. Reviewed, dictated and finalized at location B.
--- NOTE | ~2023-12-19 | XR_ITS ---
CHEST RADIOGRAPH CLINICAL HISTORY: cough . COMPARISON: 06/17/2023 TECHNIQUE: Single portable view of the chest. FINDINGS The cardiomediastinal silhouette is unremarkable. The lungs are clear. Visualized osseous structures and soft tissues are unremarkable. IMPRESSION: No focal infiltrate or effusion. Reviewed, dictated and finalized at location A.
--- NOTE | 2023-12-19 18:38 | ECG_ITS ---
Test Date: 2023-12-19 21:34:25 Measurements Intervals Joanna Rate: 111 P: 40 NJ: 130 QRS: 20 QRSD: 86 T: 27 QT: 334 QTc: 455 Interpretive Statements SINUS TACHYCARDIA WITH OCCASIONAL VENTRICULAR PREMATURE COMPLEXES LEFT VENTRICULAR HYPERTROPHY ABNORMAL ECG Compared to ECG 11/04/2023 15:41:33 Ventricular premature complex(es) now present Myocardial infarct finding no longer present Electronically Signed On 12-20-2023 13:12:59 CDT by Lukas Corey M.D.
--- NOTE | 2023-12-19 18:48 | ED_ITS ---
HPI - Altered Mental Status General Chief Complaint: Altered Mental Status Stated Complaint: AMS Time Seen by Provider: 12/19/23 18:40 Source: family and EMS Mode of arrival: EMS Limitations: altered mental status History of Present Illness HPI narrative: This is a 78-year-old male that presents to the emergency department for altered mental status. Patient recently had a prolonged hospitalization after having n randi surgery at [facility]. Eventually was discharged to a nursing facility. His mental status has waxed and waned, the last 2 days he has had a significant decline. Related Data Home Medications Medication Instructions Recorded Confirmed aspirin 81 mg tablet,delayed 81 mg PO DAILY 07/05/20 10/31/23 release flurbiprofen sodium 0.03 % eye 1 drp ophthalmic (eye) TID 06/17/23 10/31/23 drops gabapentin 300 mg capsule See Rx Instructions .Route .COMPLEX 06/17/23 10/31/23 insulin aspart U-100 100 unit/mL See Rx Instructions .Route .COMPLEX 06/17/23 10/31/23 (3 mL) subcutaneous pen (Novolog FlexPen U-100 Insulin aspart) insulin glargine 100 unit/mL (3 24 unit subcut DAILY 06/17/23 10/31/23 mL) subcutaneous pen (Lantus Solostar U-100 Insulin) pantoprazole 40 mg tablet,delayed 40 mg PO DAILY 06/17/23 10/31/23 release prednisolone acetate 1 % eye 1 drp ophthalmic (eye) TID 06/17/23 10/31/23 drops,suspension calcium polycarbophil 625 mg 1,250 mg PO DAILY 08/05/23 10/31/23 tablet (Fiber Therapy (ca polycarbophil)) clopidogrel 75 mg tablet 75 mg PO DAILY 08/05/23 10/31/23 doxazosin 8 mg tablet 8 mg PO DAILY 08/05/23 10/31/23 multivitamin (Daily Multi-Vitamin 1 tablet PO DAILY 08/05/23 10/31/23 tablet) venlafaxine 75 mg tablet 75 mg PO DAILY 08/05/23 10/31/23 Allergies Allergy/AdvReac Type Severity Reaction Status Date / Time mirtazapine Allergy Intermediate legs shake Verified 11/04/23 16:47 Review of Systems Review of Systems: ROS unobtainable: Yes unobtainable due to mental status PMFSH Past Medical History Medical History Asthma Asthma Coronary artery disease COVID Elevated fecal calprotectin Fatigue Fusion of lumbar spine (~2013) Hernia Long COVID Lumbar disc herniation MCI (mild cognitive impairment) Obstructive sleep apnea Parkinsonian features Right elbow pain Sarcoidosis Tachycardia Urinary symptom or sign Visit for suture removal Surgical History Surgical History H/O left inguinal hernia repair H/O lumbosacral spine surgery History of cardiac cath April, with stent History of cholecystectomy History of heart artery stent April, History of tonsillectomy and adenoidectomy Family History Family History Father Diabetes mellitus Hypertension Family history of elevated blood lipids Family history of cardiovascular disease Acute myocardial infarction Mother Diabetes mellitus Hypertension Family history of elevated blood lipids Acute myocardial infarction Family history of chronic obstructive pulmonary disease Sibling Diabetes mellitus Hypertension Family history of elevated blood lipids Other Family history of kidney disease Social History Social History Smoking status: Former smoker Tobacco type: cigarettes Second hand tobacco smoke exposure: No Alcohol intake: never Substance use: never Substance use type: does not use Lack of Transportation: No Lack of Food: Never True Current Housing: I Have Housing Concerned About Future Housing: No Difficulty Paying Gas/Electric Bills: No Difficulty Paying for Meds: YES Currently Unemployed: No Education: High School Diploma/GED Difficulty w/ Childcare or Family Care: No Living arrangements: with family Spiritual care concerns: No Exam Narrative: GENERAL: Elderly, well-nourished, and in no acute distress. HEAD: Normocephalic, atraumatic. EYES: PERRLA and EOMI. ENT: Nares clear, no rhinorrhea or epistaxis. Mucous membranes moist. Oropharynx without tonsillar hypertrophy exudate or other lesions. NECK: Supple. No adenopathy or masses CHEST: No respiratory distress. Lung sounds coarse. No wheezes rales or rhonchi HEART: Regular rate and rhythm. No murmur heard. Normal peripheral pulses. ABDOMEN: Soft, nontender, nondistended, normal active bowel sounds. EXTREMITIES: Normal range of motion. No edema. SKIN: Warm, dry, no rash. NEURO: No appreciable focal deficits. Alert. Does not follow commands, moving all extremities Course Course Emergency Course: Patient's family members updated on workup Consultations Consultation #1: Spoke with hospitalist about patient and workup who accepts admission Date: 12/19/23 Vital Signs Vital signs: Vital Signs Temperature 97.5 F L 12/19/23 18:26 Pulse Rate 117 H 12/19/23 18:26 Respiratory Rate 17 12/19/23 18:26 Pulse Oximetry 93 12/19/23 18:26 Oxygen Delivery Room Air 12/19/23 18:26 Temperature 97.5 F L 12/19/23 18:26 Pulse Rate 116 H 12/19/23 23:01 Respiratory Rate 16 12/19/23 23:01 Blood Pressure 158/95 H 12/19/23 23:01 Pulse Oximetry 91 12/19/23 23:01 Oxygen Delivery Room Air 12/19/23 18:34 MDM - Altered Mental Status MDM Narrative Medical decision making narrative: Patient presents to the emergency department for mental status decline over the last couple of days. Patient is afebrile. Tachycardic. EKG showing sinus tachy cardic. Noted to have productive cough. Lung sounds coarse. Oxygen saturation has remained normal on room air. Patient does not follow commands. He does move all extremities. [facility]. Per reports would be at increased risk for aspiration. CBC with leukocytosis to 18.2. Metabolic panel with some evidence of dehydration. Patient hydrated with IV fluids in the ED. Initial lactic acid elevated at 2.6. Urine without evidence of infection. Influenza, RSV and COVID screens are negative. CT neck/chest obtained for further evaluation source of infection. This does show early pneumonia. CT brain without acute findings. Patient's f amily updated on workup and recommendation for admission. Spoke with hospitalist about patient and workup who accepts admission. Blood cultures drawn patient started on IV antibiotics Differential Diagnosis Differential diagnosis: Likely altered mental status, delirium, sepsis and other (pneumonia, UTI, surgical site infection, CVA, CHF, dehydration, electrolyte derangement) Lab Data Attestation: I reviewed the patient's lab results. 12/19/23 19:20 12/19/23 19:20 Labs: Lab Results 12/19/23 Range/Units 19:20 WBC 18.2 H (4.5-10.0) K/mm3 RBC 4.44 L (4.6-6.20) M/mm3 Hgb 13.0 L (14.0-18.0) g/dL Hct 39.7 L (42.0-52.0) % MCV 89.4 (80-100) fl MCH 29.3 (26-34) pg MCHC 32.7 (32-36) g/dl RDW 16.0 H (11.5-14.5) % Plt Count 277 D (150-375) k/mm3 MPV 10.0 (7.4-10.4) fl Immature Gran % (Auto) 0.4 (0-0.5) % Neut % (Auto) 80.3 H (45.5-73.1) % Lymph % (Auto) 8.6 L (18.3-44.2) % [facility] % (Auto) 9.4 H (2.6-8.5) % Eos % (Auto) 0.9 (0-4.4) % Baso % (Auto) 0.4 (0.2-1.2) % Lymph # (Auto) 1.57 (0.9-3.2) K/mm3 [facility] # (Auto) 1.7 H (0.1-0.6) K/mm3 Eos # (Auto) 0.2 (0-0.3) K/mm3 Baso # (Auto) 0.1 (0.0-0.1) K/mm3 Abs Immat Gran (auto) 0.08 H (0.00-0.031) K/mm3 Absolute Neuts (auto) 14.6 H (1.3-6.7) K/mm3 Absolute Nucleated RBC 0.000 (0.0-0.012) K/mm3 Nucleated RBC % 0.0 (0.0-0.2) % PT 14.4 (11.1-14.7) Seconds INR 1.1 APTT 23.7 (22.3-36.8) Seconds Sodium 140 (137-145) mmol/L Potassium 3.7 (3.4-5.0) mmol/L Chloride 97 L (98-107) mmol/L Carbon Dioxide 29 (22-30) mmol/L Anion Gap 14 H (4-12) mmol/L BUN 48 H D (9-20) mg/dL Creatinine 0.70 (0.7-1.3) mg/dL Estim Creat Clear Calc 75 ml/min Estimated GFR > 60 (59 - ) Glucose 299 H (65-110) mg/dL Lactic Acid 2.6 H (0.7-2.0) mmol/L Calcium 9.7 (8.4-10.2) mg/dL Total Bilirubin 0.7 (0.2-1.3) mg/dL AST 39 (17-59) U/L ALT 41 (6-50) U/L Alkaline Phosphatase 99 (38-126) U/L C-Reactive Protein 0.8 (<1.0) mg/dL NT-Pro-B Natriuret Pep 903 H (19.9-100) pg/mL Total Protein 8.0 (6.3-8.2) g/dL Albumin 4.2 (3.5-5.1) g/dL Urine Color Dark yellow (Yellow) Urine Appearance Clear (Clear) Urine pH 5.0 (5.0-9.0) Ur Specific [place] 1.036 H (1.001-1.035) Urine Protein 2+ H (Negative) mg/dL Urine Glucose (UA) 2+ H (Negative) mg/dL Urine Ketones Trace H (Negative) mg/dL Ur Blood (Man) Negative (Negative) Urine Nitrate Negative (Negative) Urine Bilirubin Negative (Negative) Urine Urobilinogen 1.0 (<2.0) mg/dL Add Ur Microanalysis Reviewed Leukocyte Esterase Rfl Negative (Negative) LAURENT/UL Urine RBC 3-5 H (0-2) /hpf Urine WBC 0-5 (0-3) /hpf Ur Squamous Epith Cells Occasional (Few) /hpf Urine Bacteria None seen /hpf Urine Casts 6-10 Influenza A (RT-PCR) Negative (Negative) Influenza B (RT-PCR) Negative (Negative) RSV (RT-PCR) Negative (Negative) SARS-CoV-2 RNA (RT-PCR) Negative (Negative) Imaging Data Radiologist's impression: ITS Impressions Chest X-Ray 12/19/23 19:39 IMPRESSION: No focal infiltrate or effusion. Head CT 12/19/23 19:40 IMPRESSION: No acute intracranial findings. Neck/Chest CT 12/19/23 21:02 IMPRESSION: 1. No definite abnormality seen. CT soft tissue neck chest w Ordering provider: Maya Lundberg PA-C History: 78 years Male with . leukocytosis, tachycardia, productive cough . Comparison: None. Technique: CT chest with IV contrast. Findings: VISUALIZED THORACIC INLET: Nodule in the right lower thyroid. MEDIASTINUM: Aorta/coronary arteries: Mild atheromatous disease. Heart/other: The heart is not enlarged. Lymph nodes: No mediastinal or hilar adenopathy. Calcified right hilar lymph nodes. LUNGS: Thickening of the interstitial tissues seen in the right upper lobe with minimal infiltrate which may indicate early pneumonia but fibrotic changes are possible. Dependent atelectatic changes in the lower lobes. No pulmonary nodules or masses. No effusions. No pneumothorax. Calcification seen adjacent to the right transverse fissure. VISUALIZED UPPER ABDOMEN: Status post cholecystectomy. Atrophic pancreas. Otherwise, the visualized upper abdomen is normal. MUSCULOSKELETAL: Soft tissues: The superficial soft tissues are normal. Bones: Age appropriate degenerative changes of the spine. IMPRESSION: Interstitial thickening in the right upper lobe with minimal infiltrate. Pneum onitis versus fibrotic changes are not excluded. Follow-up advised. ECG Data EKG #1: ECG completion date: 12/19/23 EKG Interpretation: tachycardia, sinus rhythm, no ST changes and normal QT Critical Care Time Critical Care Time Critical Care Time: No Discharge Plan Discharge Clinical Impression: Aspiration pneumonia Patient Disposition: Still a Patient Condition: Serious
[2023-12-19 19:33] LABS: Basophils Absolute Auto 0.1 K/mm3 (0.0-0.1); Basophils Percent Auto 0.4 % (0.2-1.2); Eosinophils Absolute Auto 0.2 K/mm3 (0-0.3); Eosinophils Percent Auto 0.9 % (0-4.4); Hematocrit 39.7 % (42.0-52.0); Immature Granulocyte Absolute 0.08 K/mm3 (0.00-0.031); Immature Granulocyte Percent A 0.4 % (0-0.5); Lymphocytes Absolute Auto 1.57 K/mm3 (0.9-3.2); Lymphocytes Percent Auto 8.6 % (18.3-44.2); Mean Corpuscular HGB Conc 32.7 g/dl (32-36); Mean Corpuscular Hemoglobin 29.3 pg (26-34); Mean Corpuscular Volume 89.4 fl (80-100); Monocytes Absolute Auto 1.7 K/mm3 (0.1-0.6); Monocytes Percent Auto 9.4 % (2.6-8.5); Neutrophils Absolute Auto 14.6 K/mm3 (1.3-6.7); Neutrophils Percent Auto 80.3 % (45.5-73.1); Platelet Count Result 277 k/mm3 (150-375); Red Blood Count 4.44 M/mm3 (4.6-6.20); White Blood Count 18.2 K/mm3 (4.5-10.0)
[2023-12-19 19:40] LABS: Lactic Acid Reflex 2.6 mmol/L (0.7-2.0)
[2023-12-19 19:45] LABS: Alanine Aminotransferase 41 U/L (6-50); Albumin Level 4.2 g/dL (3.5-5.1); Alkaline Phosphatase 99 U/L (38-126); Anion Gap 14 mmol/L (4-12); Aspartate Amino Transferase 39 U/L (17-59); Bilirubin,Total 0.7 mg/dL (0.2-1.3); Blood Urea Nitrogen 48 mg/dL (9-20); CRP 0.8 mg/dL (<1.0); Calcium 9.7 mg/dL (8.4-10.2); Carbon Dioxide 29 mmol/L (22-30); Chloride 97 mmol/L (98-107); Estimated CRCL calculation 75 ml/min; Estimated Glomerular Filt Rate > 60; Glucose 299 mg/dL (65-110); Potassium 3.7 mmol/L (3.4-5.0); Sodium 140 mmol/L (137-145)
[2023-12-19] MEDS: SODIUM CHLORIDE 0.9% IV 500 ML 999 ML IV CONT ×3 (19:49→23:17)
[2023-12-19 19:50] LABS: NT Pro B Type Natriuretic Pept 903 pg/mL (19.9-100)
[2023-12-19 20:08] LABS: Influenza A QL RT-PCR Negative (Negative); Influenza B QL RT-PCR Negative (Negative); RSV RNA, RT-PCR Negative (Negative); SARS-CoV-2 RNA PCR Negative (Negative)
[2023-12-19 20:17] LABS: INR 1.1; Prothrombin Time 14.4 Seconds (11.1-14.7)
[2023-12-19 20:18] LABS: Partial Thromboplastin Time 23.7 Seconds (22.3-36.8)
[2023-12-19 20:42] LABS: Add Urine Microscopic? YES; Appearance Urine Clear (Clear); Bacteria Urine None Seen /hpf; Bilirubin Urine Negative (Negative); Blood Urine Negative (Negative); Color Urine Dark Yellow (Yellow); Glucose Urine UA 2+ mg/dL (Negative); Ketones Urine Trace mg/dL (Negative); Leukocyte Esterase Ur Negative LEU/UL (Negative); Need Manual Microscopic Reviewed; Nitrate Urine Negative (Negative); Protein Urine 2+ mg/dL (Negative); Specific Grav Ur 1.036 (1.001-1.035); Squamous Epithelial Cell Urine Occasional /hpf (Few); WBC Urine 0-5 /hpf (0-3)
[2023-12-19] MEDS: PIPERACILLIN/TAZ 4.5G/NS 100ML 4.5 GM/100 ML BAG IVPB (21:13)
[2023-12-19 22:29] LABS: Reflex Lactic Acid Yes or No Add Lactic
[2023-12-20] VITALS (8 sets, daily range): BP systolic 150–170; BP diastolic 76–98; PULSE 74–123; RESP 16–20; TEMP 36.3–36.8; O2SAT 92–97; BMI 24.7
--- NOTE | 2023-12-20 00:10 | ADMGEN ---
This patient, Gavin Fenton, was admitted to [facility] Surg Room 306-02. Patient/family oriented to hospital policies and general routines including ID bracelet, bed and alarms, visiting hours, pain management, procedures, bathroom and other care routines, personal items, smoking policy, room service/diet, and visiting hours. Information on how to activate the Rapid Response Team has been discussed. Patient/Family are encouraged to report perceived risks to care and to ask questions if they do not understand what they are told or what they should do.
--- NOTE | 2023-12-20 00:40 | PC.NURSE ---
This RN called [facility] to recieve the pt's med list, they stated fax machine was down so they read the pt's med list over the phone, [facility] stated that the pt gets glucerna 1.2 for tube feeding 75 ml/hr with 100 ml flush Q4H
--- NOTE | 2023-12-20 00:52 | PM.IMHP ---
H&P: HPI History of Present Illness Date/Time: 12/20/23 00:52 Chief Complaint: Cough Narrative: 78-year-old male with recent delirium, hypertension, [id number] diabetes mellitus, hyperlipidemia, CAD, MARTIN, BPH, immune mediated microvasculopathic neuropathy presents with altered mental status. The patient had a recent prolonged hospitalization after having neck surgery for neck fracture at [facility] and was discharged to a nursing facility. Since then mental status has declined. For 2 days now family present, daughter and report he has had more of a decline. He has also had a cough productive of sputum production. They report the patient was treated with 7 days of antibiotics from the last hospitalization at [facility]. 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 Family reports he had an MRI and lumbar puncture at the recent hospitalization at [facility] and no etiology for delirium was discovered. Patient has had a feeding tube placed approximately 2 weeks ago. He was admitted at [facility] on 11/04/2023. Patient presented saying he has been forgetful recently but stated he had no trauma. He was found to have a type 2 odontoid fracture. 11/15/2023 odont[address] screw [address] by Dr. Demetrius Leger, no intraoperative complications. Postoperatively the patient developed dysphagia. He also had desaturations and tachycardia. He had thick yellow secretions. He also developed encephalopathy as mentioned above. Upon arrival to [facility] urine 12/19/2023 patient noted to be sinus tachycardia. Afebrile. Saturating well on room air. Laboratory evaluation demonstrated elevated white count. Patient does not follow commands and is nonverbal. He was given Zosyn. Blood cultures and sputum culture obtained. Chest x-ray no focal infiltrate, however neck and chest CT demonstrated interstitial thickening in the right upper lobe with minimal infiltrate. Head CT without acute intracranial findings. Review of Systems Review of Systems: All systems reviewed & are unremarkable except as noted in HPI and below (Subjective) [facility] Past Medical History Medical History Asthma Asthma Coronary artery disease COVID Elevated fecal calprotectin Fatigue Fusion of lumbar spine (~2013) Hernia Long COVID Lumbar disc herniation MCI (mild cognitive impairment) Obstructive sleep apnea Parkinsonian features Right elbow pain Sarcoidosis Tachycardia Urinary symptom or sign Visit for suture removal Surgical History Surgical History H/O left inguinal hernia repair H/O lumbosacral spine surgery History of cardiac cath April, with stent History of cholecystectomy History of heart artery stent April, History of tonsillectomy and adenoidectomy Family History Family History Father Diabetes mellitus Hypertension Family history of elevated blood lipids Family history of cardiovascular disease Acute myocardial infarction Mother Diabetes mellitus Hypertension Family history of elevated blood lipids Acute myocardial infarction Family history of chronic obstructive pulmonary disease Sibling Diabetes mellitus Hypertension Family history of elevated blood lipids Other Family history of kidney disease Social History Social History Smoking status: Former smoker Tobacco type: cigarettes Second hand tobacco smoke exposure: No Alcohol intake: never Substance use: never Substance use type: does not use Lack of Transportation: No Lack of Food: Never True Current Housing: I Have Housing Concerned About Future Housing: No Difficulty Paying Gas/Electric Bills: No Difficulty Paying for Meds: YES Currently Unemployed: No Education: High School Diploma/GED Difficulty w/ Childcare or Family Care: No Living arrangements: with family Spiritual care concerns: No Meds Home Medications and Allergies Home Medications Medication Instructions Recorded Confirmed Type aspirin 81 mg tablet,delayed 81 mg PO DAILY 07/05/20 12/20/23 History release folic acid 1 mg tablet See Rx Instructions .Route 04/24/23 12/20/23 Rx .COMPLEX #90 tabs atorvastatin 40 mg tablet 40 mg PO QHS #90 tabs 08/18/23 12/20/23 Rx Miralax 17 g BID 12/20/23 12/20/23 History Zofran 4 mg Q6H PRN Nausea And Vomiting 12/20/23 12/20/23 History acetaminophen 31.25 ml feeding tube TID 12/20/23 12/20/23 History ipratropium 0.5 mg-albuterol 3 mg 3 ml inhalation Q6H PRN Shortness 12/20/23 12/20/23 History (2.5 mg base)/3 mL nebulization Of Breath Or Wheezing soln lansoprazole 30 mg AC 12/20/23 12/20/23 History melatonin 6 mg HS 12/20/23 12/20/23 History Allergies Allergy/AdvReac Type Severity Reaction Status Date / Time mirtazapine Allergy Intermediate legs shake Verified 11/04/23 16:47 Vital Signs Vital Signs - 24 hr 12/19/23 18:26 12/19/23 18:34 12/19/23 19:09 Temperature 97.5 F L Pulse Rate 117 H 122 H Respiratory Rate 17 17 Blood Pressure 130/78 Pulse Oximetry 93 92 95 Oxygen Delivery Room Air Room Air 12/19/23 19:53 12/19/23 21:38 12/19/23 18:45 Temperature Pulse Rate 120 H 115 H 121 H Respiratory Rate 20 19 22 H Blood Pressure 117/103 H 153/101 H Pulse Oximetry 95 92 95 Oxygen Delivery 12/19/23 22:16 12/19/23 22:31 12/19/23 22:46 Temperature Pulse Rate 117 H 115 H 110 H Respiratory Rate 31 H 33 H 17 Blood Pressure 192/96 H 180/100 H 158/78 H Pulse Oximetry 91 91 94 Oxygen Delivery 12/19/23 23:01 12/20/23 00:00 Temperature 97.7 F Pulse Rate 116 H 116 H Respiratory Rate 16 18 Blood Pressure 158/95 H 157/76 H Pulse Oximetry 91 97 Oxygen Delivery Exam Const: General: comfortable and no acute distress Other: Nonverbal. and daughter at bedside HENMT: Mouth: Yes dry mucous membranes Eyes: Pupils: Equal, round and reactive pupils present Neck: Neck: supple Resp: Other: Coarse breath sounds, limited participation Cardio: Rate: regular rate Rhythm: regular rhythm GI: Inspection: non-distended GI Palp: Yes Soft to palpation and No Tenderness to palpation present (GI) Extrem: General: no edema H&P: Results Labs Labs: Short CBC 12/19/23 Range/Units 19:20 WBC 18.2 H (4.5-10.0) K/mm3 Hgb 13.0 L (14.0-18.0) g/dL Hct 39.7 L (42.0-52.0) % Plt Count 277 D (150-375) k/mm3 BMP 12/19/23 19:20 Sodium 140 Potassium 3.7 Chloride 97 L Carbon Dioxide 29 BUN 48 H D Creatinine 0.70 Glucose 299 H Calcium 9.7 Liver Function 12/19/23 Range/Units 19:20 Total Bilirubin 0.7 (0.2-1.3) mg/dL AST 39 (17-59) U/L ALT 41 (6-50) U/L Alkaline Phosphatase 99 (38-126) U/L Albumin 4.2 (3.5-5.1) g/dL Urine 12/19/23 Range/Units 19:20 Urine Color Dark yellow (Yellow) Urine Appearance Clear (Clear) Urine pH 5.0 (5.0-9.0) Ur Specific H[place]away 1.036 H (1.001-1.035) Urine Protein 2+ H (Negative) mg/dL Urine Glucose (UA) 2+ H (Negative) mg/dL Assessment and Plan Assessment and plan (1) Aspiration pneumonia: Qualifiers: Aspiration pneumonia type: unspecified Laterality: right Lung location: upper lobe of lung Qualified Code(s): J69.0 - Pneumonitis due to inhalation of food and vomit Code(s): J69.0 - Pneumonitis due to inhalation of food and vomit Status: Acute (2) Confusion: Code(s): R41.0 - Disorientation, unspecified Status: Acute (3) Hypovolemia: Code(s): E86.1 - Hypovolemia Status: Acute (4) Lactic acidosis: Code(s): E87.20 - Acidosis, unspecified Status: Acute Plan 78-year-old male with recent delirium, hypertension, uyk-qutmjcr-qstedwcfm diabetes mellitus, hyperlipidemia, CAD, MARTIN, BPH, immune mediated microvasculopathic neuropathy presents with altered mental status. The patient had a recent prolonged hospitalization after having neck surgery for neck fracture at [facility] and was discharged to a nursing facility. Since then mental status has declined. For 2 days now family present, daughter and report he has had more of a decline. He has also had a cough productive of sputum production. They report the patient was treated with 7 days of antibiotics from the last hospitalization at [facility]. 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 Family reports he had an MRI and lumbar puncture at the recent hospitalization at [facility] and no etiology for delirium was discovered. Patient has had a feeding tube placed approximately 2 weeks ago. He was admitted at [facility] on 11/04/2023. Patient presented saying he has been forgetful recently but stated he had no trauma. He was found to have a type 2 odontoid fracture. 11/15/2023 odontoid screw placement by Dr. Demetrius Leger, no intraoperative complications. Postoperatively the patient developed dysphagia. He also had desaturations and tachycardia. He had thick yellow secretions. He also developed encephalopathy as mentioned above. Upon arrival to [facility] urine 12/19/2023 patient noted to be sinus tachycardia. Afebrile. Saturating well on room air. Laboratory evaluation demonstrated elevated white count. Patient does not follow commands and is nonverbal. He was given Zosyn. Blood cultures and sputum culture obtained. Chest x-ray no focal infiltrate, however neck and chest CT demonstrated interstitial thickening in the right upper lobe with minimal infiltrate. Head CT without acute intracranial findings. ---- The patient has had a complicated course within the last 2 months due to odontoid fracture. His delirium could be still reversible. However unlikely. Will treat for suspected aspiration pneumonia with Zosyn. Pending blood and sputum cultures. trend white count. Will also check a TSH B12 and syphilis screen. Lactic acidosis due to hypovolemia. Elevated BUN serum creatinine ratio and dry mucous membranes. Received 3 L normal saline in the ER. Continue to monitor volume status, trend lactate. ---- Dietitian consult for tube feeding. Saline lock IV. SCDs. Protonix wishes for the patient to be full code. She is however amenable to further discussions as his hospital course progresses. Hospitalist [facility] Advance Care Plan I have confirmed that the patient's Advanced Care Plan is present, code status is documented, or surrogate decision maker is listed in patient medical record.: Yes Medication Reconciliation I have utilized all available resources to obtain, update and review the patients current medications (includes all prescriptions, OTC, herbals, cannabis, and nutritional supplements).: Yes
[2023-12-20 01:14] LABS: Lactic Acid Reflex 1.3 mmol/L (0.7-2.0)
[2023-12-20] MEDS: MELATONIN 3 MG TABLET 6 MG FEED TUBE ×2 (01:34→21:06)
[2023-12-20] MEDS: PIPERACILLIN/TAZ 4.5G/NS 100ML 4.5 GM/100 ML BAG IVPB ×4 (04:42→23:23)
[2023-12-20 05:02] LABS: Glucose Point of Care 272 mg/dl (65-105)
[2023-12-20] MEDS: FOLIC ACID 1 MG TABLET FEED TUBE (08:09)
[2023-12-20] MEDS: ASPIRIN 81 MG CHEWABLE TABLET FEED TUBE (08:09)
[2023-12-20] MEDS: PANTOPRAZOLE SODIUM IV 40 MG VIAL IV PUSH (08:11)
[2023-12-20] MEDS: polyethylene glycoL 3350 17 GM POWD.PACK FEED TUBE ×2 (08:11→17:35)
[2023-12-20 08:25] LABS: Glucose Point of Care 313 mg/dl (65-105)
[2023-12-20 09:34] LABS: Rapid Plasma Reagin Non-Reactive (NonReactive)
[2023-12-20 11:27] LABS: Glucose Point of Care 331 mg/dl (65-105)
--- NOTE | 2023-12-20 15:45 | P.PNIM_ITS ---
Progress Note: A&P Assessment and Plan (1) Aspiration pneumonia: Qualifiers: Aspiration pneumonia type: unspecified Laterality: right Lung location: upper lobe of lung Qualified Code(s): J69.0 - Pneumonitis due to inhalation of food and vomit Code(s): J69.0 - Pneumonitis due to inhalation of food and vomit Status: Acute Assessment and Plan: - Blood and urine cultures obtained. - Continue Zosyn as we follow cultures. - Currently no acute cardiopulmonary distress with good O2 sats on RA. (2) Confusion: Code(s): R41.0 - Disorientation, unspecified Status: Acute Assessment and Plan: - Possibly related to infection vs dementia vs delirium from long hospitalization vs other. - CT head negative for acute. - vit B12, RPR, TSH all wnl. - Family reports he had an MRI and lumbar puncture at the recent hospitalization at [facility] and no etiology for delirium was discovered. - Continue to monitor changes in mentation. (3) Hypovolemia: Code(s): E86.1 - Hypovolemia Status: Acute Assessment and Plan: - Continue with gentle IVF hydration. - Continue to monitor renal panel closely. - Avoid nephrotoxins. (4) Lactic acidosis: Code(s): E87.20 - Acidosis, unspecified Status: Acute Assessment and Plan: - Possibly secondary to dehydration +/vs infection vs other. - Resolved with IVF hydration. Time Spent With Patient Time with patient: 25 - 35 minutes Subjective Date/time seen: 12/20/23 13:45 Review of Systems Review of Systems: The patient had a recent prolonged hospitalization after having neck surgery for neck fracture at [facility] and was discharged to a nursing facility. Since then mental status has declined. For 2 days now family present, daughter and report he has had more of a decline. He has also had a cough productive of sputum production. They report the patient was treated with 7 days of antibiotics from the last hospitalization at [facility] approximately 5 days [employer] here. Patient has had a feeding tube placed approximately 2 weeks ago. He was admitted at [facility] on 11/04/2023. Patient presented saying he has been forgetful recently but stated he had no trauma. He was found to have a type 2 odontoid fracture. 11/15/2023 odontoid screw placement by Dr. Demetrius Leger, no intraoperative complications. Postoperatively the patient developed dysphagia. He also had desaturations and tachycardia. Upon arrival to [facility] 12/19/2023 patient noted to be sinus tachycardia. Afebrile. Saturating well on room air. Laboratory evaluation demonstrated elevated white count. Patient does not follow commands and is nonverbal. He was started Zosyn for possible aspiration PNA. Blood cultures and sputum culture pending. Chest x-ray no focal infiltrate, however neck and chest CT demonstrated interstitial thickening in the right upper lobe with minimal infiltrate. Head CT without acute intracranial findings. ROS unobtainable: Yes unobtainable due to mental status (Patient confused) Exam Const: General: comfortable and no acute distress Other: Nonverbal. and daughter at bedside. HENMT: Mouth: Yes dry mucous membranes Eyes: Pupils: Equal, round and reactive pupils present Neck: Neck: supple Resp: Other: Coarse breath sounds, limited participation Cardio: Rate: regular rate Rhythm: regular rhythm GI: Inspection: non-distended GI Palp: Yes Soft to palpation Auscultation: normal bowel sounds Other: PEG-Tube mid abdomen. Neuro: Cranial nerves: Yes Equal, round and reactive pupils present Other: No focal neuro deficits noted. Extrem: General: no edema Psych: Other: Confused and non-verbal. Objective Data Vital Signs Vital Signs: Vital Signs - 24 hr 12/19/23 18:26 12/19/23 18:34 12/19/23 19:09 Temperature 97.5 F L Pulse Rate 117 H 122 H Respiratory Rate 17 17 Blood Pressure 130/78 Pulse Oximetry 93 92 95 Oxygen Delivery Room Air Room Air Fraction of Inspired Oxygen 12/19/23 19:53 12/19/23 21:38 12/19/23 18:45 Temperature Pulse Rate 120 H 115 H 121 H Respiratory Rate 20 19 22 H Blood Pressure 117/103 H 153/101 H Pulse Oximetry 95 92 95 Oxygen Delivery Fraction of Inspired Oxygen 12/19/23 22:16 12/19/23 22:31 12/19/23 22:46 Temperature Pulse Rate 117 H 115 H 110 H Respiratory Rate 31 H 33 H 17 Blood Pressure 192/96 H 180/100 H 158/78 H Pulse Oximetry 91 91 94 Oxygen Delivery Fraction of Inspired Oxygen 12/19/23 23:01 12/20/23 00:26 12/20/23 00:00 Temperature 97.7 F Pulse Rate 116 H 116 H Respiratory Rate 16 18 Blood Pressure 158/95 H 157/76 H Pulse Oximetry 91 97 Oxygen Delivery Room Air Fraction of Inspired Oxygen 12/20/23 04:00 12/20/23 04:00 12/20/23 00:00 Temperature 98.3 F Pulse Rate 118 H 118 H 111 H Respiratory Rate 16 Blood Pressure 151/83 H Pulse Oximetry 92 Oxygen Delivery Fraction of Inspired Oxygen 12/20/23 07:42 12/20/23 08:00 12/20/23 12:00 Temperature 97.9 F 97.8 F Pulse Rate 116 H 113 H Respiratory Rate 19 18 Blood Pressure 162/83 H 170/84 H Pulse Oximetry 93 95 95 Oxygen Delivery Room Air Fraction of Inspired Oxygen 21 Intake/Output Intake/Output: Intake & Output 12/17/23 12/18/23 12/19/23 12/20/23 23:59 23:59 23:59 23:59 Intake Total 1100 100 Output Total 575 Balance 1100 -475 Meds/Results Medications: Active Medications Generic Name Dose Route Start Last Admin Trade Name Freq PRN Reason Stop Dose Admin Albuterol/Ipratropium 3 ml 12/20/23 00:53 Ipratropium 0.5 Mg/Albuterol Sulfate 2.5 Mg Ampul.Neb 3 Ml INHALATION Q6H PRN Shortness Of Breath Or Wheezing Aspirin 81 mg 12/20/23 08:00 12/20/23 08:09 Aspirin 81 Mg Chewable Tablet FEED TUBE 81 mg DAILY@0800 ZENAIDA Administration Atorvastatin Calcium 40 mg 12/20/23 21:00 Atorvastatin 40 Mg Tablet PO QHS ZENAIDA Dextrose 12.5 gm 12/20/23 01:00 Dextrose 50% 25 Gm/50 Ml Syringe IV PUSH PRN PRN Hypoglycemia Protocol Folic Acid 1 mg 12/20/23 09:00 12/20/23 08:09 Folic Acid 1 Mg Tablet FEED TUBE 1 mg DAILY ZENAIDA Administration Glucose 15 gm 12/20/23 01:00 Glucose Oral Gel 15 Gm Of Glucse In 37.5 Gm Tube PO PRN PRN Hypoglycemia Protocol Piperacillin Sod/Tazobactam Sod 4.5 gm in 100 mls @ 200 mls/hr 12/20/23 05:00 12/20/23 12:41 Zosyn 4.5 Gm/Ns 100 Ml IVPB 100 mls/hr Q6HR ZENAIDA Administration Dextrose 1,000 mls @ 100 mls/hr 12/20/23 01:00 Dextrose 5% 1,000 Ml IVPB PRN PRN Hypoglycemia Protocol Sodium Chloride 1,000 mls @ 75 mls/hr 12/20/23 15:35 Normal Saline Iv IV CONT .[id number] ZENAIDA Insulin Aspart 2 - 5 units 12/20/23 08:00 Insulin Aspart (*Bkc) 100 Units/Ml SUB-Q TIDWM ZENAIDA Protocol Insulin Aspart 1 - 2 units 12/20/23 21:00 Insulin Aspart (*Bkc) 100 Units/Ml SUB-Q HS ZENAIDA Protocol Melatonin 6 mg 12/20/23 01:00 12/20/23 01:34 Melatonin 3 Mg Tablet FEED TUBE 6 mg HS ZENAIDA Administration Ondansetron HCl 4 mg 12/20/23 01:02 Ondansetron Inj 4 Mg/2 Ml Vial IV PUSH Q6H PRN Nausea And Vomiting Pantoprazole Sodium 40 mg 12/20/23 09:00 12/20/23 08:11 Pantoprazole Sodium Iv 40 Mg Vial IV PUSH 40 mg QAM ZENAIDA Administration Polyethylene Glycol 17 gm 12/20/23 09:00 12/20/23 08:11 Polyethylene Glycol 3350 17 Gm Powd.Pack FEED TUBE 17 gm BID ZENAIDA Administration Radiology Results: ITS Impressions Chest X-Ray 12/19/23 19:39 IMPRESSION: No focal infiltrate or effusion. Head CT 12/19/23 19:40 IMPRESSION: No acute intracranial findings. Neck/Chest CT 12/19/23 21:02 IMPRESSION: 1. No definite abnormality seen. CT soft tissue neck chest w Ordering provider: Maya Lundberg PA-C History: 78 years Male with . leukocytosis, tachycardia, productive cough . Comparison: None. Technique: CT chest with IV contrast. Findings: VISUALIZED THORACIC INLET: Nodule in the right lower thyroid. MEDIASTINUM: Aorta/coronary arteries: Mild atheromatous disease. Heart/other: The heart is not enlarged. Lymph nodes: No mediastinal or hilar adenopathy. Calcified right hilar lymph nodes. LUNGS: Thickening of the interstitial tissues seen in the right upper lobe with minimal infiltrate which may indicate early pneumonia but fibrotic changes are possible. Dependent atelectatic changes in the lower lobes. No pulmonary nodules or masses. No effusions. No pneumothorax. Calcification seen adjacent to the right transverse fissure. VISUALIZED UPPER ABDOMEN: Status post cholecystectomy. Atrophic pancreas. Otherwise, the visualized upper abdomen is normal. MUSCULOSKELETAL: Soft tissues: The superficial soft tissues are normal. Bones: Age appropriate degenerative changes of the spine. IMPRESSION: Interstitial thickening in the right upper lobe with minimal infiltrate. Pneumonitis versus fibrotic changes are not excluded. Follow-up advised. Labs Labs: Laboratory Results - last 24 hr 12/19/23 12/20/23 12/20/23 19:20 01:01 04:40 WBC 18.2 H RBC 4.44 L Hgb 13.0 L Hct 39.7 L MCV 89.4 MCH 29.3 MCHC 32.7 RDW 16.0 H Plt Count 277 D MPV 10.0 Immature Gran % (Auto) 0.4 Neut % (Auto) 80.3 H Lymph % (Auto) 8.6 L [place] % (Auto) 9.4 H Eos % (Auto) 0.9 Baso % (Auto) 0.4 Lymph # (Auto) 1.57 [place] # (Auto) 1.7 H Eos # (Auto) 0.2 Baso # (Auto) 0.1 Abs Immat Gran (auto) 0.08 H Absolute Neuts (auto) 14.6 H Absolute Nucleated RBC 0.000 Nucleated RBC % 0.0 PT 14.4 INR 1.1 APTT 23.7 Sodium 140 Potassium 3.7 Chloride 97 L Carbon Dioxide 29 Anion Gap 14 H BUN 48 H D Creatinine 0.70 Estim Creat Clear Calc 75 Estimated GFR > 60 Glucose 299 H POC Capillary Glucose 272 H Lactic Acid 2.6 H 1.3 Calcium 9.7 Total Bilirubin 0.7 AST 39 ALT 41 Alkaline Phosphatase 99 C-Reactive Protein 0.8 NT-Pro-B Natriuret Pep 903 H Total Protein 8.0 Albumin 4.2 Vitamin B12 TSH (Reflex) Urine Color Dark yellow Urine Appearance Clear Urine pH 5.0 Ur Specific [place] 1.036 H Urine Protein 2+ H Urine Glucose (UA) 2+ H Urine Ketones Trace H Ur Blood (Man) Negative Urine Nitrate Negative Urine Bilirubin Negative Urine Urobilinogen 1.0 Add Ur Microanalysis Reviewed Leukocyte Esterase Rfl Negative Urine RBC 3-5 H Urine WBC 0-5 Ur Squamous Epith Cells Occasional Urine Bacteria None seen Urine Casts 6-10 RPR Influenza A (RT-PCR) Negative Influenza B (RT-PCR) Negative RSV (RT-PCR) Negative SARS-CoV-2 RNA (RT-PCR) Negative 12/20/23 12/20/23 12/20/23 05:42 08:22 11:19 WBC RBC Hgb Hct MCV MCH MCHC RDW Plt Count MPV Immature Gran % (Auto) Neut % (Auto) Lymph % (Auto) [place] % (Auto) Eos % (Auto) Baso % (Auto) Lymph # (Auto) [place] # (Auto) Eos # (Auto) Baso # (Auto) Abs Immat Gran (auto) Absolute Neuts (auto) Absolute Nucleated RBC Nucleated RBC % PT INR APTT Sodium Potassium Chloride Carbon Dioxide Anion Gap BUN Creatinine Estim Creat Clear Calc Estimated GFR Glucose POC Capillary Glucose 313 H 331 H Lactic Acid Calcium Total Bilirubin AST ALT Alkaline Phosphatase C-Reactive Protein NT-Pro-B Natriuret Pep Total Protein Albumin Vitamin B12 864.0 TSH (Reflex) 2.930 Urine Color Urine Appearance Urine pH Ur Specific [place] Urine Protein Urine Glucose (UA) Urine Ketones Ur Blood (Man) Urine Nitrate Urine Bilirubin Urine Urobilinogen Add Ur Microanalysis Leukocyte Esterase Rfl Urine RBC Urine WBC Ur Squamous Epith Cells Urine Bacteria Urine Casts RPR Non-reactive Influenza A (RT-PCR) Influenza B (RT-PCR) RSV (RT-PCR) SARS-CoV-2 RNA (RT-PCR) Quality VTE Prophylaxis VTE prophylaxis: mechanical ordered Hospitalist [facility] Advance Care Plan I have confirmed that the patient's Advanced Care Plan is present, code status is documented, or surrogate decision maker is listed in patient medical record.: Yes Medication Reconciliation I have utilized all available resources to obtain, update and review the patients current medications (includes all prescriptions, OTC, herbals, cannabis, and nutritional supplements).: Yes
[2023-12-20 15:53] LABS: Glucose Point of Care 383 mg/dl (65-105)
[2023-12-20] MEDS: SODIUM CHLORIDE 0.9% IV 1,000 ML 75 ML IV CONT (17:34)
[2023-12-20 20:50] LABS: Glucose Point of Care 391 mg/dl (65-105)
[2023-12-20] MEDS: ATORVASTATIN 40 MG TABLET FEED TUBE (21:06)
[2023-12-20] MEDS: INSULIN ASPART (*BKC) 100 UNITS/ML SUB-Q (21:07)
[2023-12-21] VITALS (7 sets, daily range): BP systolic 123–158; BP diastolic 75–81; PULSE 105–120; RESP 18–20; TEMP 36.3–37.2; O2SAT 94–99
[2023-12-21 00:08] LABS: Glucose Point of Care 358 mg/dl (65-105)
[2023-12-21] MEDS: PIPERACILLIN/TAZ 4.5G/NS 100ML 4.5 GM/100 ML BAG IVPB ×3 (05:05→22:49)
[2023-12-21] MEDS: SODIUM CHLORIDE 0.9% IV 1,000 ML 75 ML IV CONT ×2 (05:06→11:46)
[2023-12-21 06:06] LABS: Basophils Absolute Auto 0.1 K/mm3 (0.0-0.1); Basophils Percent Auto 0.4 % (0.2-1.2); Eosinophils Absolute Auto 0.1 K/mm3 (0-0.3); Eosinophils Percent Auto 0.4 % (0-4.4); Hematocrit 37.6 % (42.0-52.0); Hemoglobin 11.9 g/dL (14.0-18.0); Immature Granulocyte Absolute 0.11 K/mm3 (0.00-0.031); Immature Granulocyte Percent A 0.7 % (0-0.5); Lymphocytes Percent Auto 9.7 % (18.3-44.2); Mean Corpuscular HGB Conc 31.6 g/dl (32-36); Mean Corpuscular Hemoglobin 29.2 pg (26-34); Mean Corpuscular Volume 92.2 fl (80-100); Mean Platelet Volume 9.6 fl (7.4-10.4); Monocytes Percent Auto 12.4 % (2.6-8.5); Neutrophils Absolute Auto 12.6 K/mm3 (1.3-6.7); Neutrophils Percent Auto 76.4 % (45.5-73.1); Platelet Count Result 218 k/mm3 (150-375); Red Blood Count 4.08 M/mm3 (4.6-6.20); Red Cell Distribution Width 16.4 % (11.5-14.5); White Blood Count 16.5 K/mm3 (4.5-10.0)
[2023-12-21 06:15] LABS: Alanine Aminotransferase 41 U/L (6-50); Albumin Level 3.6 g/dL (3.5-5.1); Alkaline Phosphatase 100 U/L (38-126); Anion Gap 8 mmol/L (4-12); Aspartate Amino Transferase 114 U/L (17-59); Bilirubin,Total 1.3 mg/dL (0.2-1.3); Blood Urea Nitrogen 45 mg/dL (9-20); Carbon Dioxide 30 mmol/L (22-30); Chloride 109 mmol/L (98-107); Estimated CRCL calculation 54 ml/min; Estimated Glomerular Filt Rate > 60; Glucose 338 mg/dL (65-110); Magnesium 2.1 mg/dL (1.6-2.3); Phosphorus 3.2 mg/dL (2.5-4.5); Potassium 3.2 mmol/L (3.4-5.0); Sodium 147 mmol/L (137-145)
[2023-12-21 06:36] LABS: Procalcitonin 0.2 ng/mL
[2023-12-21] MEDS: PANTOPRAZOLE SODIUM IV 40 MG VIAL IV PUSH (07:43)
[2023-12-21] MEDS: FOLIC ACID 1 MG TABLET FEED TUBE (07:50)
[2023-12-21] MEDS: ASPIRIN 81 MG CHEWABLE TABLET FEED TUBE (07:50)
[2023-12-21 11:01] LABS: Hematocrit 39.9 % (42.0-52.0); Mean Corpuscular HGB Conc 30.1 g/dl (32-36); Mean Corpuscular Hemoglobin 29.1 pg (26-34); Mean Corpuscular Volume 96.8 fl (80-100); Mean Platelet Volume 9.8 fl (7.4-10.4); Platelet Count Result 214 k/mm3 (150-375); Red Blood Count 4.12 M/mm3 (4.6-6.20); Red Cell Distribution Width 16.3 % (11.5-14.5); White Blood Count 19.9 K/mm3 (4.5-10.0)
[2023-12-21 11:37] LABS: Glucose Point of Care 334 mg/dl (65-105)
[2023-12-21] MEDS: POTASSIUM CHLORIDE 20 MEQ PACKET (FOR LIQUID) 40 MEQ FEED TUBE (11:46)
--- NOTE | 2023-12-21 13:28 | P.PNIM_ITS ---
Progress Note: A&P Assessment and Plan (1) Aspiration pneumonia: Qualifiers: Aspiration pneumonia type: unspecified Laterality: right Lung location: upper lobe of lung Qualified Code(s): J69.0 - Pneumonitis due to inhalation of food and vomit Code(s): J69.0 - Pneumonitis due to inhalation of food and vomit Status: Acute Assessment and Plan: - Blood and urine cultures obtained. - Continue Zosyn as we follow cultures. - Currently no acute cardiopulmonary distress with good O2 sats on RA > 95 %. (2) Confusion: Code(s): R41.0 - Disorientation, unspecified Status: Acute Assessment and Plan: - Possibly related to infection vs dementia vs delirium from long hospitalization vs Parkinson's vs other. - CT head negative for acute. - vit B12, RPR, TSH all wnl. - Family reports he had an MRI and lumbar puncture recently at [facility] and no etiology for delirium noted. - Continue to monitor changes in mentation. (3) Hypovolemia: Code(s): E86.1 - Hypovolemia Status: Acute Assessment and Plan: - Continue with gentle IVF hydration. - Continue to monitor renal panel closely. - Avoid nephrotoxins. (4) Lactic acidosis: Code(s): E87.20 - Acidosis, unspecified Status: Acute Assessment and Plan: - Possibly secondary to dehydration +/vs infection vs other. - Resolved with IVF hydration. (5) Adult failure to thrive: Code(s): R62.7 - Adult failure to thrive Status: Acute Assessment and Plan: - [employer] consulted for TF recommendations. Time Spent With Patient Time with patient: 15 - 25 minutes Subjective Date/time seen: 12/21/23 13:28 Patient confused and non-verbal. Interval history: The patient had a recent prolonged hospitalization after having neck surgery for neck fracture at [facility] and was discharged to a nursing facility. Since then mental status declined. He was noted with a productive cough but no sputum production. Patient was treated with 7 days of antibiotics from the last hospitalization at [facility], approximately 5 days [facility] here, for PNA. Patient has a feeding tube that was placed approximately 2 weeks ago due to dysphagia at [facility] following postoperative dysphagia. He was admitted at [facility] on 11/04/2023 following a fall incident and was found to have an odontoid fracture. 11/15/2023 odontoid screw was placed by Dr. Demetrius Leger with no intraoperative complications reported. Upon arrival to [facility] 12/19/2023 patient noted to be in sinus tachycardia. Afebrile. Saturating > 90% on room air. Laboratory evaluation demonstrated elevated white count. Patient does not follow commands and is nonverbal. He was started Zosyn for possible aspiration PNA. Blood cultures and sputum culture are pending. Chest x-ray no focal infiltrate, however neck and chest CT demonstrated interstitial thickening in the right upper lobe with minimal infiltrate. Head CT without acute intracranial findings. Review of Systems Review of Systems: ROS unobtainable: Yes unobtainable due to mental status (Patient confused and non-verbal.) Exam Narrative: HEENT: Atraumatic, JAMES, Dry mouth, EOM. Neck: Supple. Lungs: Coarse breath sounds. Heart: RRR, No murmurs. Abdomen: Soft, NT, G-Tube mid-abdomen, +ve bowel sounds X4 quadrants. Extremities: No edema. 2+ pedal pulses maryann. Skin: Intact and pale. Neuro: No focal deficits noted. Psych: Calm but non-verbal. Const: General: comfortable and no acute distress Other: Nonverbal. HENMT: Mouth: Yes dry mucous membranes Eyes: Pupils: Equal, round and reactive pupils present Neck: Neck: supple Resp: Other: Coarse breath sounds, limited participation Cardio: Rate: regular rate Rhythm: regular rhythm GI: Inspection: non-distended Auscultation: normal bowel sounds Other: PEG-Tube mid abdomen. Neuro: Cranial nerves: Yes Equal, round and reactive pupils present Other: No focal neuro deficits noted. Extrem: General: no edema Psych: Other: Confused and non-verbal. Objective Data Vital Signs Vital Signs: Vital Signs - 24 hr 12/20/23 16:00 12/20/23 20:00 12/20/23 20:00 Temperature 98.0 F 97.3 F L Pulse Rate 121 H 74 Respiratory Rate 20 18 Blood Pressure 156/98 H 150/81 H Pulse Oximetry 92 93 Oxygen Delivery Room Air Fraction of Inspired Oxygen 12/21/23 00:00 12/20/23 21:05 12/20/23 20:00 Temperature 97.7 F Pulse Rate 112 H 123 H Respiratory Rate 18 Blood Pressure 140/79 Pulse Oximetry 98 96 Oxygen Delivery Room Air Fraction of Inspired Oxygen 12/21/23 00:00 12/21/23 04:00 12/21/23 04:00 Temperature 98.7 F Pulse Rate 105 H 120 H 120 H Respiratory Rate 18 Blood Pressure 123/80 Pulse Oximetry 96 Oxygen Delivery Fraction of Inspired Oxygen 12/21/23 08:01 12/21/23 08:00 12/21/23 12:00 Temperature 97.4 F L 98.4 F Pulse Rate 120 H 116 H Respiratory Rate 18 20 Blood Pressure 158/75 H 144/81 H Pulse Oximetry 94 94 98 Oxygen Delivery Room Air Fraction of Inspired Oxygen Intake/Output Intake/Output: Intake & Output 12/18/23 12/19/23 12/20/23 12/21/23 23:59 23:59 23:59 23:59 Intake Total 2675 104 9189 Output Total 825 225 Balance 1100 -525 1340 Meds/Results Medications: Active Medications Generic Name Dose Route Start Last Admin Trade Name Freq PRN Reason Stop Dose Admin Albuterol/Ipratropium 3 ml 12/20/23 00:53 Ipratropium 0.5 Mg/Albuterol Sulfate 2.5 Mg Ampul.Neb 3 Ml INHALATION Q6H PRN Shortness Of Breath Or Wheezing Aspirin 81 mg 12/20/23 08:00 12/21/23 07:50 Aspirin 81 Mg Chewable Tablet FEED TUBE 81 mg DAILY@0800 ZENAIDA Administration Atorvastatin Calcium 40 mg 12/20/23 21:00 12/20/23 21:06 Atorvastatin 40 Mg Tablet FEED TUBE 40 mg QHS ZENAIDA Administration Dextrose 12.5 gm 12/20/23 01:00 Dextrose 50% 25 Gm/50 Ml Syringe IV PUSH PRN PRN Hypoglycemia Protocol Folic Acid 1 mg 12/20/23 09:00 12/21/23 07:50 Folic Acid 1 Mg Tablet FEED TUBE 1 mg DAILY ZENAIDA Administration Glucose 15 gm 12/20/23 01:00 Glucose Oral Gel 15 Gm Of Glucse In 37.5 Gm Tube PO PRN PRN Hypoglycemia Protocol Piperacillin Sod/Tazobactam Sod 4.5 gm in 100 mls @ 200 mls/hr 12/20/23 05:00 12/21/23 11:45 Zosyn 4.5 Gm/Ns 100 Ml IVPB 100 mls/hr Q6HR ZENAIDA Administration Dextrose 1,000 mls @ 100 mls/hr 12/20/23 01:00 Dextrose 5% 1,000 Ml IVPB PRN PRN Hypoglycemia Protocol Sodium Chloride 1,000 mls @ 75 mls/hr 12/20/23 15:35 12/21/23 11:46 Normal Saline Iv IV CONT 75 mls/hr .[id number] ZENAIDA Administration Insulin Aspart 2 - 5 units 12/20/23 08:00 12/20/23 17:38 Insulin Aspart (*Bkc) 100 Units/Ml SUB-Q Not Given TIDWM ZENAIDA Protocol Insulin Aspart 1 - 2 units 12/20/23 21:00 12/20/23 21:07 Insulin Aspart (*Bkc) 100 Units/Ml SUB-Q 2 units HS ZENAIDA Administration Protocol Melatonin 6 mg 12/20/23 01:00 12/20/23 21:06 Melatonin 3 Mg Tablet FEED TUBE 6 mg HS ZENAIDA Administration Miscellaneous Information 1 each 12/20/23 00:01 Please Change All Medications In The Future To, By Tube Feed Please. Thank You. XX 01/19/24 00:00 CLARIFY ZENAIDA Miscellaneous Information 1 each 12/20/23 00:01 Please Change All Medications In The Future To, By Tube Feed Please. Thank You. XX 01/19/24 00:00 CLARIFY ZENAIDA Ondansetron HCl 4 mg 12/20/23 01:02 Ondansetron Inj 4 Mg/2 Ml Vial IV PUSH Q6H PRN Nausea And Vomiting Pantoprazole Sodium 40 mg 12/20/23 09:00 12/21/23 07:43 Pantoprazole Sodium Iv 40 Mg Vial IV PUSH 40 mg QAM ZENAIDA Administration Polyethylene Glycol 17 gm 12/20/23 09:00 12/21/23 08:04 Polyethylene Glycol 3350 17 Gm Powd.Pack FEED TUBE Not Given BID ZENAIDA Radiology Results: ITS Impressions Chest X-Ray 12/19/23 19:39 IMPRESSION: No focal infiltrate or effusion. Head CT 12/19/23 19:40 IMPRESSION: No acute intracranial findings. Neck/Chest CT 12/19/23 21:02 IMPRESSION: 1. No definite abnormality seen. CT soft tissue neck chest w Ordering provider: Maya Lundberg PA-C History: 78 years Male with . leukocytosis, tachycardia, productive cough . Comparison: None. Technique: CT chest with IV contrast. Findings: VISUALIZED THORACIC INLET: Nodule in the right lower thyroid. MEDIASTINUM: Aorta/coronary arteries: Mild atheromatous disease. Heart/other: The heart is not enlarged. Lymph nodes: No mediastinal or hilar adenopathy. Calcified right hilar lymph nodes. LUNGS: Thickening of the interstitial tissues seen in the right upper lobe with minimal infiltrate which may indicate early pneumonia but fibrotic changes are possible. Dependent atelectatic changes in the lower lobes. No pulmonary nodules or masses. No effusions. No pneumothorax. Calcification seen adjacent to the right transverse fissure. VISUALIZED UPPER ABDOMEN: Status post cholecystectomy. Atrophic pancreas. Otherwise, the visualized upper abdomen is normal. MUSCULOSKELETAL: Soft tissues: The superficial soft tissues are normal. Bones: Age appropriate degenerative changes of the spine. IMPRESSION: Interstitial thickening in the right upper lobe with minimal infiltrate. Pneumonitis versus fibrotic changes are not excluded. Follow-up advised. Labs Labs: Laboratory Results - last 24 hr 12/20/23 12/20/23 12/21/23 15:45 20:22 00:03 WBC RBC Hgb Hct MCV MCH MCHC RDW Plt Count MPV Immature Gran % (Auto) Neut % (Auto) Lymph % (Auto) [place] % (Auto) Eos % (Auto) Baso % (Auto) Lymph # (Auto) [place] # (Auto) Eos # (Auto) Baso # (Auto) Abs Immat Gran (auto) Absolute Neuts (auto) Absolute Nucleated RBC Nucleated RBC % Sodium Potassium Chloride Carbon Dioxide Anion Gap BUN Creatinine Estim Creat Clear Calc Estimated GFR Glucose POC Capillary Glucose 383 H 391 H 358 H Calcium Phosphorus Magnesium Total Bilirubin AST ALT Alkaline Phosphatase Total Protein Albumin Procalcitonin 12/21/23 12/21/23 12/21/23 05:58 10:45 11:28 WBC 16.5 H 19.9 H RBC 4.08 L 4.12 L Hgb 11.9 L 12.0 L Hct 37.6 L 39.9 L MCV 92.2 96.8 MCH 29.2 29.1 MCHC 31.6 L 30.1 L RDW 16.4 H 16.3 H Plt Count 218 214 MPV 9.6 9.8 Immature Gran % (Auto) 0.7 H Neut % (Auto) 76.4 H Lymph % (Auto) 9.7 L [place] % (Auto) 12.4 H Eos % (Auto) 0.4 Baso % (Auto) 0.4 Lymph # (Auto) 1.60 [place] # (Auto) 2.0 H Eos # (Auto) 0.1 Baso # (Auto) 0.1 Abs Immat Gran (auto) 0.11 H Absolute Neuts (auto) 12.6 H Absolute Nucleated RBC 0.000 Nucleated RBC % 0.0 Sodium 147 H Potassium 3.2 L Chloride 109 H Carbon Dioxide 30 Anion Gap 8 BUN 45 H Creatinine 1.00 Estim Creat Clear Calc 54 Estimated GFR > 60 Glucose 338 H POC Capillary Glucose 334 H Calcium 9.0 Phosphorus 3.2 Magnesium 2.1 Total Bilirubin 1.3 AST 114 H ALT 41 Alkaline Phosphatase 100 Total Protein 7.0 Albumin 3.6 Procalcitonin 0.2 Quality VTE Prophylaxis VTE prophylaxis: mechanical ordered Hospitalist [facility] Advance Care Plan I have confirmed that the patient's Advanced Care Plan is present, code status is documented, or surrogate decision maker is listed in patient medical record.: Yes Medication Reconciliation I have utilized all available resources to obtain, update and review the patients current medications (includes all prescriptions, OTC, herbals, cannabis, and nutritional supplements).: Yes
[2023-12-21 16:55] LABS: Toxigenic C. Diff NEGATIVE (NEGATIVE)
[2023-12-21 18:08] LABS: Glucose Point of Care 333 mg/dl (65-105)
[2023-12-21] MEDS: INSULIN ASPART (*BKC) 100 UNITS/ML SUB-Q ×2 (18:09→20:36)
[2023-12-21] MEDS: VANCOMYCIN 2,000 MG/NS 500 ML 2,000 MG/500 ML BAG 100 MG IVPB (18:50)
[2023-12-21 20:11] LABS: Glucose Point of Care 280 mg/dl (65-105)
[2023-12-21] MEDS: MELATONIN 3 MG TABLET 6 MG FEED TUBE (20:36)
[2023-12-21] MEDS: ATORVASTATIN 40 MG TABLET FEED TUBE (20:36)
[2023-12-21 21:47] LABS: MRSA (PCR) NOT DETECTED (NOT DETECTE)
[2023-12-22] VITALS (8 sets, daily range): BP systolic 121–158; BP diastolic 63–98; PULSE 101–121; RESP 20–40; TEMP 36.4–37.1; O2SAT 93–100; BMI 24.7
[2023-12-22 00:01] LABS: Glucose Point of Care 249 mg/dl (65-105)
[2023-12-22] MEDS: metroNIDAZOLE 500 MG/ISO 100ML 500 MG/100 ML BAG 100 MG IVPB ×2 (05:03)
[2023-12-22 05:35] LABS: Glucose Point of Care 259 mg/dl (65-105)
[2023-12-22 05:56] LABS: Hematocrit 38.6 % (42.0-52.0); Mean Corpuscular HGB Conc 31.1 g/dl (32-36); Mean Corpuscular Hemoglobin 29.3 pg (26-34); Mean Corpuscular Volume 94.4 fl (80-100); Mean Platelet Volume 9.4 fl (7.4-10.4); Platelet Count Result 197 k/mm3 (150-375); Red Blood Count 4.09 M/mm3 (4.6-6.20); Red Cell Distribution Width 16.6 % (11.5-14.5); White Blood Count 17.8 K/mm3 (4.5-10.0)
[2023-12-22 06:03] LABS: Anion Gap 8 mmol/L (4-12); Blood Urea Nitrogen 38 mg/dL (9-20); Calcium 9.1 mg/dL (8.4-10.2); Carbon Dioxide 29 mmol/L (22-30); Chloride 114 mmol/L (98-107); Estimated CRCL calculation 54 ml/min; Estimated Glomerular Filt Rate > 60; Glucose 287 mg/dL (65-110); Potassium 3.6 mmol/L (3.4-5.0); Sodium 151 mmol/L (137-145)
[2023-12-22] MEDS: PIPERACILLIN/TAZ 4.5G/NS 100ML 4.5 GM/100 ML BAG IVPB ×4 (06:13→23:40)
[2023-12-22] MEDS: INSULIN ASPART (*BKC) 100 UNITS/ML SUB-Q ×3 (08:08→18:07)
[2023-12-22 08:28] LABS: Ammonia < 9 umol/L (9-30)
[2023-12-22] MEDS: SODIUM CHLORIDE 0.9% IV 1,000 ML 75 ML IV CONT (08:58)
[2023-12-22] MEDS: FOLIC ACID 1 MG TABLET FEED TUBE (09:01)
[2023-12-22] MEDS: ASPIRIN 81 MG CHEWABLE TABLET FEED TUBE (09:01)
[2023-12-22] MEDS: PANTOPRAZOLE SODIUM IV 40 MG VIAL IV PUSH (09:01)
[2023-12-22 10:14] LABS: Glucose Point of Care 298 mg/dl (65-105)
--- NOTE | 2023-12-22 10:16 | PC.NURSE ---
On 12/22/23, the student, [Sergio Vargas ], provided care and completed [facility] documentation on this patient. I have reviewed the student's documentation and agree with the findings.
[2023-12-22 11:36] LABS: Glucose Point of Care 297 mg/dl (65-105)
--- NOTE | 2023-12-22 12:18 | ECG_ITS ---
Test Date: 2023-12-22 13:10:21 Measurements Intervals [place] Rate: 112 P: 21 ME: 117 QRS: -9 QRSD: 106 T: -7 QT: 326 QTc: 447 Interpretive Statements SINUS TACHYCARDIA WITH SHORT ME INTERVAL ABNORMAL RHYTHM ECG Compared to ECG 12/19/2023 21:34:25 Short ME interval now present Ventricular premature complex(es) no longer present Left ventricular hypertrophy no longer present Electronically Signed On 12-22-2023 13:32:49 CDT by Acosta Tilley M.D.
--- NOTE | 2023-12-22 12:31 | PC.NURSE ---
On 12/22/23, the student, [Margarito Acuña], provided care and completed [facility] documentation on this patient. I have reviewed the student's documentation and agree with the findings.
--- NOTE | 2023-12-22 12:32 | PC.NURSE ---
On 12/22/23, the student, [Sergio Vargas ], provided care and completed [facility] documentation on this patient. I have reviewed the student's documentation and agree with the findings.
[2023-12-22] MEDS: LORazepam INJ (*CRX) 2 MG/ML VIAL 1 MG IV PUSH (13:10)
[2023-12-22 13:40] LABS: Basophils Absolute Auto 0.1 K/mm3 (0.0-0.1); Basophils Percent Auto 0.3 % (0.2-1.2); Eosinophils Percent Auto 0.3 % (0-4.4); Hematocrit 36.6 % (42.0-52.0); Hemoglobin 11.3 g/dL (14.0-18.0); Immature Granulocyte Percent A 0.6 % (0-0.5); Lymphocytes Absolute Auto 1.35 K/mm3 (0.9-3.2); Lymphocytes Percent Auto 8.6 % (18.3-44.2); Mean Corpuscular HGB Conc 30.9 g/dl (32-36); Mean Corpuscular Hemoglobin 28.9 pg (26-34); Mean Corpuscular Volume 93.6 fl (80-100); Monocytes Absolute Auto 1.4 K/mm3 (0.1-0.6); Monocytes Percent Auto 8.6 % (2.6-8.5); Neutrophils Absolute Auto 12.9 K/mm3 (1.3-6.7); Neutrophils Percent Auto 81.6 % (45.5-73.1); Platelet Count Result 205 k/mm3 (150-375); Red Blood Count 3.91 M/mm3 (4.6-6.20); Red Cell Distribution Width 16.6 % (11.5-14.5); White Blood Count 15.8 K/mm3 (4.5-10.0)
[2023-12-22 13:54] LABS: Lactic Acid Reflex 1.4 mmol/L (0.7-2.0)
[2023-12-22 13:55] LABS: Alanine Aminotransferase 40 U/L (6-50); Albumin Level 3.4 g/dL (3.5-5.1); Alkaline Phosphatase 102 U/L (38-126); Anion Gap 7 mmol/L (4-12); Aspartate Amino Transferase 70 U/L (17-59); Bilirubin,Total 1.2 mg/dL (0.2-1.3); Blood Urea Nitrogen 36 mg/dL (9-20); Calcium 8.8 mg/dL (8.4-10.2); Carbon Dioxide 25 mmol/L (22-30); Chloride 116 mmol/L (98-107); Estimated CRCL calculation 59 ml/min; Estimated Glomerular Filt Rate > 60; Glucose 285 mg/dL (65-110); Sodium 148 mmol/L (137-145)
[2023-12-22] MEDS: LACTATED RINGERS 1,000 ML 75 ML IV CONT (14:26)
--- NOTE | 2023-12-22 14:58 | PCOTNOTE ---
Attempted to see pt for OT evaluation however RN asking to hold on therapy due to medical status. Pt's HR at 115 at rest currently.
--- NOTE | 2023-12-22 15:31 | P.PNIM_ITS ---
Progress Note: A&P Assessment and Plan (1) Sepsis: Code(s): A41.9 - Sepsis, unspecified organism Status: Acute Assessment and Plan: 12/22/23: * Pt meeting sepsis criteria with Tachypnea, Tachycardia, and known source of infection in the lungs * Blood cultures already pending prior to decompensation today. Preliminary results are negative. * Sputum culture appeared contaminated. * Pt's abx today were continued with Zosyn and Vancomycin and Flagyl were discontinued in the setting of Negative cultures to date. * Continue with Zosyn at this time. * New blood cultures pending. * New lactic acid is normal at 1.4. * Interval decrease in Leukocytosis from 17.8-->15.8 * CT head negative - Independently reviewed by myself. * CTA C/A/P showing a dislodged mckeon with balloon inflated in urethra and small hematoma in bladder. No PE or enlarging PNA/effusion. - Independently reviewed by myself. * Continue to monitor and trend labs and VS. * Telemetry * Code status DNR with no Intubation or CPR. Consider all other treatments including BiPap. (2) Dislodged Mckeon catheter: Code(s): T83.021A - Displacement of indwelling urethral catheter, initial encounter Status: Acute Assessment and Plan: 12/22/23: * As noted per CT scan with residual bladder hematoma. * Mckeon was replaced without difficulty per nurse and it is secured to his leg. * No blood clots in urine. * If decrease of UOP or if any blood clots, consider Urology consult and pt may need CBI. * PRN Pain meds. (3) Aspiration pneumonia: Qualifiers: Aspiration pneumonia type: unspecified Laterality: right Lung location: upper lobe of lung Qualified Code(s): J69.0 - Pneumonitis due to inhalation of food and vomit Code(s): J69.0 - Pneumonitis due to inhalation of food and vomit Status: Acute Assessment and Plan: - Blood and urine cultures obtained. - Continue Zosyn as we follow cultures. - Currently no acute cardiopulmonary distress with good O2 sats on RA > 95 %. 12/22/23: * Pt with increased tachypnea today and tachycardia. No increase in oxygen requirement * Etiology of respiratory change pain response to dislodgement of catheter vs. worsening PNA, vs. effusion vs. PE * CTA ruled out PE, effusion or enlarging PNA * Supportive care with prn oxygen and prn nebs. (4) Confusion: Code(s): R41.0 - Disorientation, unspecified Status: Acute Assessment and Plan: - Possibly related to infection vs dementia vs delirium from long hospitaliza tion vs Parkinson's vs other. - CT head negative for acute. - vit B12, RPR, TSH all wnl. - Family reports he had an MRI and lumbar puncture recently at [facility] and no etiology for delirium noted. - Continue to monitor changes in mentation. 12/22/23: * Pt is encephalopathic. * Noted to be hypernatremic today, but has not been previously so low suspicion of causation. * With change in status today repeat head CT performed and is negative for any acute findings. * Ammonia checked to be normal at <9. * Vitamin D and B12 are normal. * Etiology is uncertain at this time. * Continue to monitor labs and VS trend. * Neuro checks Q shift. (5) Hypovolemia: Code(s): E86.1 - Hypovolemia Status: Acute Assessment and Plan: 12/22/23: * Likely secondary to poor intake. * TF has been started per dietary orders. * Free water flushes ordered. * Continue LR at 75 ml/hr * Monitor for s/s of further aspiration. * Head of bed up to 60 degrees with TF running. * Aspiration precautions. (6) Adult failure to thrive: Code(s): R62.7 - Adult failure to thrive Status: Acute Assessment and Plan: - Oil Laboratory Analyst consulted for TF recommendations. 12/22/23: * Due to dysphagia after surgery which most likely led to aspiration PNA. * TF has been started and should be continued cautiously in the current setting of PNA. * Daily weight. * Accurate Intake and output * Appreciate Oil Laboratory Analyst continuing to follow along with medicine to adjust the caloric needs as needed. * Change Insulin regimen to Q6 hrs for TF (7) Hypokalemia: Code(s): E87.6 - Hypokalemia Status: Acute Assessment and Plan: 12/22/23: * Noted potassium level of 3.0. * Potassium rider of 40 mEq IVPB x1 * Recheck Potassium in AM. * Telemetry (8) Acute hypernatremia: Code(s): E87.0 - Hyperosmolality and hypernatremia Status: Acute Assessment and Plan: 12/22/23: * Sodium noted to be 151. * Free water flushes of 100 ml ordered every 4 hours. * Normal saline at 75 ml/hr changes to LR at 75 ml/hr. * Continue to trend labs and VS. * Telemetry (9) Lactic acidosis: Code(s): E87.20 - Acidosis, unspecified Status: Resolved Assessment and Plan: - Possibly secondary to dehydration +/vs infection vs other. - Resolved with IVF hydration. 12/22/23: * Lactic acid today 1.4. * Resolved Time Spent With Patient Time with patient: Greater than 35 minutes Subjective Date/time seen: 12/22/23 1230 Interval history: This pt was initially examined this morning at the bedside and was found to be tachypneic, not communicative, but stable. I received a call this afternoon from the pt's nurse at 1200 that the pt had become tachycardic, increased tachypnea and his BP had spiked. At the bedside, the pt appeared to be in an amount of distress, but could not communicate his distress secondary to his encephalopathy. Based on his current condition with PNA and recent surgery on his odontoid, a septic workup is started. He received labs as well as CT of head and CTA CAP. The results showed a decreasing WBC count, normal lactic acid, new blood cultures are pending, and the CT of the brain was without any acute findings and his odontoid repair appears intact. In addition, the CT C/A/P shows acute finding of an inflated balloon in the urethra with a degree of hematoma in bladder. No PE or other acute pulmonary findings present. The mckeon was ordered to be changed and there was a small amount of blood present in the new catheter without any clots visible. After replacement, he continues to be encephalopathic, but does appear to be more comfortable and the catheter was secured to the leg with a securement device. I talked in length with the pt's family regarding his condition and they are in agreement to change his Code status at this time to DNR w/instructions for no CPR or Intubation only, and continue all other treatments. Pts tube feeding was ordered to be started today. Potassium noted to be low at 3.0, so a 40 mEq K+ rider is ordered. He remains on Vancomycin and Zosyn. Review of Systems Review of Systems: ROS unobtainable: Yes unobtainable due to medical condition (encephalopathic) Exam Narrative: HEENT: Atraumatic, dry MM, pupils appear normal in size bilaterally at 4 mm and are equally reactive. Neck: Supple. Noted FROM in all directions without deficit. Lungs: Tachypnea noted and decreaesed breath sounds. Heart: Tachypnea noted, no M,R,G,H Abdomen: Soft, appears TTP for me in the lower quadrants, BS present in all four quadrants. Urinary: Mckeon catheter to gravity draining dark abel urine. Extremities: No edema. 2+ pedal pulses maryann. Skin: Intact and pale. Neuro: No focal deficits readily identified, but pt does not follow directions or commands. Psych: Non-verbal but appears anxious. Objective Data Vital Signs Vital Signs: Vital Signs - 24 hr 12/21/23 16:00 12/21/23 20:00 12/21/23 20:30 Temperature 98.9 F 97.7 F Pulse Rate 120 H 115 H Respiratory Rate 20 20 Blood Pressure 148/75 H 157/79 H Pulse Oximetry 96 99 Oxygen Delivery Room Air Fraction of Inspired Oxygen 12/22/23 00:00 12/21/23 20:00 12/22/23 00:00 Temperature 98.8 F Pulse Rate 117 H 115 H 115 H Respiratory Rate Blood Pressure 143/75 H Pulse Oximetry 100 Oxygen Delivery Fraction of Inspired Oxygen 12/22/23 04:00 12/22/23 04:00 12/22/23 08:19 Temperature 97.6 F 98.0 F Pulse Rate 111 H 111 H 108 H Respiratory Rate 32 H 38 H Blood Pressure 121/73 129/77 Pulse Oximetry 97 96 Oxygen Delivery Fraction of Inspired Oxygen 12/22/23 08:00 12/22/23 08:00 12/22/23 11:54 Temperature 97.8 F Pulse Rate 108 H 108 H 113 H Respiratory Rate 38 H 40 H Blood Pressure 158/98 H Pulse Oximetry 96 96 Oxygen Delivery Room Air Fraction of Inspired Oxygen 21 Intake/Output Intake/Output: Intake & Output 12/19/23 12/20/23 12/21/23 12/22/23 23:59 23:59 23:59 23:59 Intake Total 6567 541 2189 1200 Output Total 825 425 560 Balance 1100 -525 1240 640 Meds/Results Medications: Active Medications Generic Name Dose Route Start Last Admin Trade Name Freq PRN Reason Stop Dose Admin Albuterol/Ipratropium 3 ml 12/20/23 00:53 Ipratropium 0.5 Mg/Albuterol Sulfate 2.5 Mg Ampul.Neb 3 Ml INHALATION Q6H PRN Shortness Of Breath Or Wheezing Aspirin 81 mg 12/20/23 08:00 12/22/23 09:01 Aspirin 81 Mg Chewable Tablet FEED TUBE 81 mg DAILY@0800 ZENAIDA Administration Atorvastatin Calcium 40 mg 12/20/23 21:00 12/21/23 20:36 Atorvastatin 40 Mg Tablet FEED TUBE 40 mg QHS ZENAIDA Administration Dextrose 12.5 gm 12/20/23 01:00 Dextrose 50% 25 Gm/50 Ml Syringe IV PUSH PRN PRN Hypoglycemia Protocol Folic Acid 1 mg 12/20/23 09:00 12/22/23 09:01 Folic Acid 1 Mg Tablet FEED TUBE 1 mg DAILY ZENAIDA Administration Glucose 15 gm 12/20/23 01:00 Glucose Oral Gel 15 Gm Of Glucse In 37.5 Gm Tube PO PRN PRN Hypoglycemia Protocol Dextrose 1,000 mls @ 100 mls/hr 12/20/23 01:00 Dextrose 5% 1,000 Ml IVPB PRN PRN Hypoglycemia Protocol Piperacillin Sod/Tazobactam Sod 4.5 gm in 100 mls @ 200 mls/hr 12/22/23 06:00 12/22/23 14:26 Zosyn 4.5 Gm/Ns 100 Ml IVPB 200 mls/hr Q6HR ZENAIDA Administration Lactated Ringer's 1,000 mls @ 75 mls/hr 12/22/23 10:40 12/22/23 14:26 Lr - Lactated Ringers Iv IV CONT 75 mls/hr .[id number] ZENAIDA Administration Insulin Aspart 2 - 5 units 12/20/23 08:00 12/22/23 13:29 Insulin Aspart (*Bkc) 100 Units/Ml SUB-Q Not Given TIDWM ZENAIDA Protocol Insulin Aspart 1 - 2 units 12/20/23 21:00 12/21/23 20:36 Insulin Aspart (*Bkc) 100 Units/Ml SUB-Q 2 units HS ZENAIDA Administration Protocol Melatonin 6 mg 12/20/23 01:00 12/21/23 20:36 Melatonin 3 Mg Tablet FEED TUBE 6 mg HS ZENAIDA Administration Miscellaneous Information 1 each 12/20/23 00:01 Please Change All Medications In The Future To, By Tube Feed Please. Thank You. XX 01/19/24 00:00 [facility] Miscellaneous Information 1 each 12/20/23 00:01 Please Change All Medications In The Future To, By Tube Feed Please. Thank You. XX 01/19/24 00:00 [facility] Ondansetron HCl 4 mg 12/20/23 01:02 Ondansetron Inj 4 Mg/2 Ml Vial IV PUSH Q6H PRN Nausea And Vomiting Pantoprazole Sodium 40 mg 12/20/23 09:00 12/22/23 09:01 Pantoprazole Sodium Iv 40 Mg Vial IV PUSH 40 mg QAM ZENAIDA Administration Radiology Results: ITS Impressions Chest X-Ray 12/19/23 19:39 IMPRESSION: No focal infiltrate or effusion. Neck/Chest CT 12/19/23 21:02 IMPRESSION: 1. No definite abnormality seen. CT soft tissue neck chest w Ordering provider: Maya Lundberg PA-C History: 78 years Male with . leukocytosis, tachycardia, productive cough . Comparison: None. Technique: CT chest with IV contrast. Findings: VISUALIZED THORACIC INLET: Nodule in the right lower thyroid. MEDIASTINUM: Aorta/coronary arteries: Mild atheromatous disease. Heart/other: The heart is not enlarged. Lymph nodes: No mediastinal or hilar adenopathy. Calcified right hilar lymph nodes. LUNGS: Thickening of the interstitial tissues seen in the right upper lobe with minimal infiltrate which may indicate early pneumonia but fibrotic changes are possible. Dependent atelectatic changes in the lower lobes. No pulmonary nodules or masses. No effusions. No pneumothorax. Calcification seen adjacent to the right transverse fissure. VISUALIZED UPPER ABDOMEN: Status post cholecystectomy. Atrophic pancreas. Otherwise, the visualized upper abdomen is normal. MUSCULOSKELETAL: Soft tissues: The superficial soft tissues are normal. Bones: Age appropriate degenerative changes of the spine. IMPRESSION: Interstitial thickening in the right upper lobe with minimal infiltrate. Pneumonitis versus fibrotic changes are not excluded. Follow-up advised. Head CT 12/22/23 13:43 IMPRESSION: 1. Normal aging brain. 2. Type II odontoid fracture with screw fixation. Chest/Abdomen/Pelvis CTA 12/22/23 13:52 IMPRESSION: 1. Mckeon balloon in abnormal position in the prosthetic urethra. Small volume of hematoma in the bladder. Labs Labs: Laboratory Results - last 24 hr 12/21/23 12/21/23 12/21/23 16:00 18:05 19:53 WBC RBC Hgb Hct MCV MCH MCHC RDW Plt Count MPV Immature Gran % (Auto) Neut % (Auto) Lymph % (Auto) [place] % (Auto) Eos % (Auto) Baso % (Auto) Lymph # (Auto) [place] # (Auto) Eos # (Auto) Baso # (Auto) Abs Immat Gran (auto) Absolute Neuts (auto) Absolute Nucleated RBC Nucleated RBC % Sodium Potassium Chloride Carbon Dioxide Anion Gap BUN Creatinine Estim Creat Clear Calc Estimated GFR Glucose POC Capillary Glucose 333 H 280 H Lactic Acid Calcium Total Bilirubin AST ALT Alkaline Phosphatase Ammonia Total Protein Albumin Nasal MRSA (PCR) C. difficile (PCR) Negative 12/21/23 12/21/23 12/22/23 20:28 23:53 05:21 WBC RBC Hgb Hct MCV MCH MCHC RDW Plt Count MPV Immature Gran % (Auto) Neut % (Auto) Lymph % (Auto) [place] % (Auto) Eos % (Auto) Baso % (Auto) Lymph # (Auto) [place] # (Auto) Eos # (Auto) Baso # (Auto) Abs Immat Gran (auto) Absolute Neuts (auto) Absolute Nucleated RBC Nucleated RBC % Sodium Potassium Chloride Carbon Dioxide Anion Gap BUN Creatinine Estim Creat Clear Calc Estimated GFR Glucose POC Capillary Glucose 249 H 259 H Lactic Acid Calcium Total Bilirubin AST ALT Alkaline Phosphatase Ammonia Total Protein Albumin Nasal MRSA (PCR) Not detected C. difficile (PCR) 12/22/23 12/22/23 12/22/23 05:49 07:45 10:12 WBC 17.8 H RBC 4.09 L Hgb 12.0 L Hct 38.6 L MCV 94.4 MCH 29.3 MCHC 31.1 L RDW 16.6 H Plt Count 197 MPV 9.4 Immature Gran % (Auto) Neut % (Auto) Lymph % (Auto) [place] % (Auto) Eos % (Auto) Baso % (Auto) Lymph # (Auto) [place] # (Auto) Eos # (Auto) Baso # (Auto) Abs Immat Gran (auto) Absolute Neuts (auto) Absolute Nucleated RBC Nucleated RBC % Sodium 151 H Potassium 3.6 Chloride 114 H Carbon Dioxide 29 Anion Gap 8 BUN 38 H Creatinine 1.00 Estim Creat Clear Calc 54 Estimated GFR > 60 Glucose 287 H POC Capillary Glucose 298 H Lactic Acid Calcium 9.1 Total Bilirubin AST ALT Alkaline Phosphatase Ammonia < 9 L Total Protein Albumin Nasal MRSA (PCR) C. difficile (PCR) 12/22/23 12/22/23 11:33 12:53 WBC 15.8 H RBC 3.91 L Hgb 11.3 L Hct 36.6 L MCV 93.6 MCH 28.9 MCHC 30.9 L RDW 16.6 H Plt Count 205 MPV 10.0 Immature Gran % (Auto) 0.6 H Neut % (Auto) 81.6 H Lymph % (Auto) 8.6 L [place] % (Auto) 8.6 H Eos % (Auto) 0.3 Baso % (Auto) 0.3 Lymph # (Auto) 1.35 [place] # (Auto) 1.4 H Eos # (Auto) 0.0 Baso # (Auto) 0.1 Abs Immat Gran (auto) 0.10 H Absolute Neuts (auto) 12.9 H Absolute Nucleated RBC 0.000 Nucleated RBC % 0.0 Sodium 148 H Potassium 3.0 L Chloride 116 H Carbon Dioxide 25 Anion Gap 7 BUN 36 H Creatinine 0.90 Estim Creat Clear Calc 59 Estimated GFR > 60 Glucose 285 H POC Capillary Glucose 297 H Lactic Acid 1.4 Calcium 8.8 Total Bilirubin 1.2 AST 70 H ALT 40 Alkaline Phosphatase 102 Ammonia Total Protein 7.0 Albumin 3.4 L Nasal MRSA (PCR) C. difficile (PCR) Quality VTE Prophylaxis VTE prophylaxis: mechanical ordered
[2023-12-22 15:52] LABS: Bacteria Urine None Seen /hpf; RBC Urine >100 /hpf (0-2); Squamous Epithelial Cell Urine None Seen /hpf (Few)
[2023-12-22 16:02] LABS: Add Urine Microscopic? YES; Appearance Urine Turbid (Clear); Bilirubin Urine Negative (Negative); Blood Urine 3+ (Negative); Color Urine Red (Yellow); Glucose Urine UA Trace mg/dL (Negative); Ketones Urine Negative (Negative); Leukocyte Esterase Ur 1+ LEU/UL (Negative); Nitrate Urine Negative (Negative); Protein Urine 2+ mg/dL (Negative); Specific Grav Ur > 1.045 (1.001-1.035); pH Urine 5.5 (5.0-9.0)
[2023-12-22] MEDS: MORPHINE SULFATE (*CRX) 2 MG/ML INJ IV PUSH (16:21)
[2023-12-22] MEDS: POTASSIUM CHLORIDE INJ 40 MEQ in SODIUM CHLORIDE 0.9% IV 500 ML 130 MEQ IVPB (16:21)
--- NOTE | 2023-12-22 17:13 | ECG_ITS ---
Test Date: 2023-12-22 18:21:23 Measurements Intervals [place] Rate: 98 P: 44 HI: 113 QRS: -1 QRSD: 86 T: 7 QT: 347 QTc: 445 Interpretive Statements SINUS RHYTHM WITH SHORT HI INTERVAL Compared to ECG 12/22/2023 13:10:21 Sinus tachycardia no longer present Electronically Signed On 12-23-2023 09:39:48 CDT by Chino George M.D.
[2023-12-22] MEDS: METOPROLOL TARTRATE INJ 5 MG/5 ML VIAL IV PUSH (17:55)
[2023-12-22 18:06] LABS: Glucose Point of Care 230 mg/dl (65-105)
[2023-12-22] MEDS: ATORVASTATIN 40 MG TABLET FEED TUBE (21:19)
[2023-12-22] MEDS: MELATONIN 3 MG TABLET 6 MG FEED TUBE (21:19)
[2023-12-23] VITALS (10 sets, daily range): BP systolic 127–163; BP diastolic 71–90; PULSE 99–114; RESP 20–36; TEMP 36.2–37.5; O2SAT 90–100; BMI 10.0
[2023-12-23 00:02] LABS: Glucose Point of Care 251 mg/dl (65-105)
[2023-12-23] MEDS: INSULIN ASPART (*BKC) 100 UNITS/ML SUB-Q ×5 (00:25→23:44)
[2023-12-23 05:40] LABS: Glucose Point of Care 254 mg/dl (65-105)
[2023-12-23] MEDS: LACTATED RINGERS 1,000 ML 75 ML IV CONT (06:01)
[2023-12-23] MEDS: PIPERACILLIN/TAZ 4.5G/NS 100ML 4.5 GM/100 ML BAG IVPB ×4 (06:01→23:38)
[2023-12-23 07:05] LABS: Basophils Percent Auto 0.3 % (0.2-1.2); Eosinophils Absolute Auto 0.2 K/mm3 (0-0.3); Eosinophils Percent Auto 1.6 % (0-4.4); Hematocrit 34.5 % (42.0-52.0); Hemoglobin 10.7 g/dL (14.0-18.0); Immature Granulocyte Absolute 0.09 K/mm3 (0.00-0.031); Immature Granulocyte Percent A 0.7 % (0-0.5); Lymphocytes Absolute Auto 1.75 K/mm3 (0.9-3.2); Mean Corpuscular Hemoglobin 29.3 pg (26-34); Mean Corpuscular Volume 94.5 fl (80-100); Mean Platelet Volume 9.9 fl (7.4-10.4); Monocytes Absolute Auto 1.2 K/mm3 (0.1-0.6); Monocytes Percent Auto 9.1 % (2.6-8.5); Neutrophils Absolute Auto 10.1 K/mm3 (1.3-6.7); Neutrophils Percent Auto 75.3 % (45.5-73.1); Platelet Count Result 199 k/mm3 (150-375); Red Blood Count 3.65 M/mm3 (4.6-6.20); Red Cell Distribution Width 16.7 % (11.5-14.5); White Blood Count 13.4 K/mm3 (4.5-10.0)
[2023-12-23 07:20] LABS: Alanine Aminotransferase 41 U/L (6-50); Alkaline Phosphatase 93 U/L (38-126); Anion Gap 9 mmol/L (4-12); Aspartate Amino Transferase 70 U/L (17-59); Bilirubin,Total 0.7 mg/dL (0.2-1.3); Blood Urea Nitrogen 41 mg/dL (9-20); Calcium 8.8 mg/dL (8.4-10.2); Carbon Dioxide 25 mmol/L (22-30); Chloride 118 mmol/L (98-107); Estimated CRCL calculation 49 ml/min; Estimated Glomerular Filt Rate > 60; Glucose 257 mg/dL (65-110); Magnesium 2.2 mg/dL (1.6-2.3); Potassium 3.4 mmol/L (3.4-5.0); Sodium 152 mmol/L (137-145)
--- NOTE | 2023-12-23 07:58 | P.PNIM_ITS ---
Progress Note: A&P Assessment and Plan (1) Sepsis: Code(s): A41.9 - Sepsis, unspecified organism Status: Acute Assessment and Plan: 12/22/23: * Pt meeting sepsis criteria with Tachypnea, Tachycardia, and known source of infection in the lungs * Blood cultures already pending prior to decompensation today. Preliminary results are negative. * Sputum culture appeared contaminated. * Pt's abx today were continued with Zosyn and Vancomycin and Flagyl were discontinued in the setting of Negative cultures to date. * Continue with Zosyn at this time. * New blood cultures pending. * New lactic acid is normal at 1.4. * Interval decrease in Leukocytosis from 17.8-->15.8 * CT head negative - Independently reviewed by myself. * CTA C/A/P showing a dislodged mckeon with balloon inflated in urethra and small hematoma in bladder. No PE or enlarging PNA/effusion. - Independently reviewed by myself. * Continue to monitor and trend labs and VS. * Telemetry * Code status DNR with no Intubation or CPR. Consider all other treatments including BiPap. 12/23/23: * Urine and blood cultures pending, no growth to date on preliminary read * Continue cardiac monitoring * WBC down to 13.4 (2) Dislodged Mckeon catheter: Code(s): T83.021A - Displacement of indwelling urethral catheter, initial encounter Status: Acute Assessment and Plan: 12/22/23: * As noted per CT scan with residual bladder hematoma. * Mckeon was replaced without difficulty per nurse and it is secured to his leg. * No blood clots in urine. * If decrease of UOP or if any blood clots, consider Urology consult and pt may need CBI. * PRN Pain meds. 12/23/23: * Monitor I and O * DC mckeon catheter, monitor for retention as needed (3) Aspiration pneumonia: Qualifiers: Aspiration pneumonia type: unspecified Laterality: right Lung location: upper lobe of lung Qualified Code(s): J69.0 - Pneumonitis due to inhalation of food and vomit Code(s): J69.0 - Pneumonitis due to inhalation of food and vomit Status: Acute Assessment and Plan: - Blood and urine cultures obtained. - Continue Zosyn as we follow cultures. - Currently no acute cardiopulmonary distress with good O2 sats on RA > 95 %. 12/22/23: * Pt with increased tachypnea today and tachycardia. No increase in oxygen requirement * Etiology of respiratory change pain response to dislodgement of catheter vs. worsening PNA, vs. effusion vs. PE * CTA ruled out PE, effusion or enlarging PNA * Supportive care with prn oxygen and prn nebs. 12/23/23: * Continue Zosyn (4) Confusion: Code(s): R41.0 - Disorientation, unspecified Status: Acute Assessment and Plan: - Possibly related to infection vs dementia vs delirium from long hospitalization vs Parkinson's vs other. - CT head negative for acute. - vit B12, RPR, TSH all wnl. - Family reports he had an MRI and lumbar puncture recently at [facility] and no etiology for delirium noted. - Continue to monitor changes in mentation. 12/22/23: * Pt is encephalopathic. * Noted to be hypernatremic today, but has not been previously so low suspicion of causation. * With change in status today repeat head CT performed and is negative for any acute findings. * Ammonia checked to be normal at <9. * Vitamin D and B12 are normal. * Etiology is uncertain at this time. * Continue to monitor labs and VS trend. * Neuro checks Q shift. 12/23/23: * Continue with current treatment plan (5) Hypovolemia: Code(s): E86.1 - Hypovolemia Status: Acute Assessment and Plan: 12/22/23: * Likely secondary to poor intake. * TF has been started per dietary orders. * Free water flushes ordered. * Continue LR at 75 ml/hr * Monitor for s/s of further aspiration. * Head of bed up to 60 degrees with TF running. * Aspiration precautions. 12/23/23: * Increased free water flushes q4 hour * DC IVF * Continue with current treatment plan (6) Adult failure to thrive: Code(s): R62.7 - Adult failure to thrive Status: Acute Assessment and Plan: - Surveyor'S Assistant consulted for TF recommendations. 12/22/23: * Due to dysphagia after surgery which most likely led to aspiration PNA. * TF has been started and should be continued cautiously in the current setting of PNA. * Daily weight. * Accurate Intake and output * Appreciate Surveyor'S Assistant continuing to follow along with medicine to adjust the caloric needs as needed. * Change Insulin regimen to Q6 hrs for TF 12/23/23: * Continue tube feeding as tolerated (7) Hypokalemia: Code(s): E87.6 - Hypokalemia Status: Acute Assessment and Plan: 12/22/23: * Noted potassium level of 3.0. * Potassium rider of 40 mEq IVPB x1 * Recheck Potassium in AM. * Telemetry 12/23/23: * Potassium 3.4 * No replacement needed at this time (8) Acute hypernatremia: Code(s): E87.0 - Hyperosmolality and hypernatremia Status: Acute Assessment and Plan: 12/22/23: * Sodium noted to be 151. * Free water flushes of 100 ml ordered every 4 hours. * Normal saline at 75 ml/hr changes to LR at 75 ml/hr. * Continue to trend labs and VS. * Telemetry 12/23/23: * Sodium 152 * Increase free water Flushes to 150 q4h * DC IVF * Continue telemetry (9) Lactic acidosis: Code(s): E87.20 - Acidosis, unspecified Status: Resolved Assessment and Plan: - Possibly secondary to dehydration +/vs infection vs other. - Resolved with IVF hydration. 12/22/23: * Lactic acid today 1.4. * Resolved Time Spent With Patient Time with patient: Greater than 35 minutes Subjective Date/time seen: 12/23/23 07:58 Interval history: Interval history: This is a 78 year old male who presented to the hospital on 12/20/23 with AMS, cough with productive sputum. Work up in the hospital included a head Ct which shown a normal aging brain, type II odontoid fracture with screw fixation. Chest/abdomen/pelvis CTA that shown mckeon balloon in abnormal position in the prosthetic urethra with small volume hematoma in the bladder. Initial labs revealed WBC 18.2, hgb 13.0, Na+ 140, Chloride 97, Lactic acid 2.6>1.3, BNP 903, TSH 2.930. UA shown a urine specific gravity of 1.045, 2+ protein, trace glucose, 3+ urine blood, 1+ leukocytes, > 100 urine RBCs, 11-20 urine WBCs. Urine and blood cultures obtained and pending. Patient currently on Zosyn Patient was recently hospitalized at [facility] after having neck surgery for neck fracture and was discharged to a nursing facility. Since that time his mental status declined. MRI and lumbar puncture at [facility] was negative for etiology for delirium. He was placed on a feeding tube for nutrition. Subjective: Labs and imaging reviewed. Follows some commands. Sitter at bedside due to him pulling on tubes and lines. Review of Systems Review of Systems: ROS unobtainable: Yes unobtainable due to mental status Exam Narrative: General: In no acute distress, well nourished Head: atraumatic, encephalopathy Eyes: PERRLA, sclera clear ENT: moist mucous membranes, nasal passages clear Neck: supple, no JVD, no adenopathy, trachea midline Cardiac: Normal S1 and S2. No murmur, gallops or friction rubs, peripheral pulses intact. Respiratory: Lungs clear to auscultation, no adventitious lung sounds, currently on room air Gastrointestinal: soft, non-distended, non-tender, normoactive bowel sounds. G tube with tube feeding infusing : mckeon catheter in place, pink tinged. Extremities: moves all extremities well, no edema Skin: clean, dry, intact. No wounds or lesions. Neuro: Alert, unable to assess orientation as he is non-verbal Psych: Unable to truly assess due to mental status Objective Data Vital Signs Vital Signs: Vital Signs - 24 hr 12/22/23 08:19 12/22/23 08:00 12/22/23 08:00 Temperature 98.0 F Pulse Rate 108 H 108 H 108 H Respiratory Rate 38 H 38 H Blood Pressure 129/77 Pulse Oximetry 96 96 Oxygen Delivery Room Air Fraction of Inspired Oxygen 21 12/22/23 11:54 12/22/23 16:00 12/22/23 12:00 Temperature 97.8 F 98.6 F Pulse Rate 113 H 121 H 121 H Respiratory Rate 40 H 33 H Blood Pressure 158/98 H 123/73 Pulse Oximetry 96 93 Oxygen Delivery Fraction of Inspired Oxygen 12/22/23 16:00 12/22/23 20:00 12/22/23 20:00 Temperature 97.5 F L Pulse Rate 121 H 101 H Respiratory Rate 20 Blood Pressure 138/63 Pulse Oximetry 95 Oxygen Delivery Room Air Fraction of Inspired Oxygen 12/23/23 00:00 12/22/23 20:00 12/23/23 00:00 Temperature 97.7 F Pulse Rate 105 H 116 H 103 H Respiratory Rate 20 Blood Pressure 127/80 Pulse Oximetry 95 Oxygen Delivery Fraction of Inspired Oxygen 12/23/23 04:00 12/23/23 04:00 Temperature 97.1 F L Pulse Rate 103 H 114 H Respiratory Rate 21 H Blood Pressure 159/86 H Pulse Oximetry 96 Oxygen Delivery Fraction of Inspired Oxygen Intake/Output Intake/Output: Intake & Output 12/20/23 12/21/23 12/22/23 12/23/23 23:59 23:59 23:59 23:59 Intake Total 300 1665 1400 1100 Output Total 825 425 710 400 Balance -525 1240 690 700 Meds/Results Medications: Active Medications Generic Name Dose Route Start Last Admin Trade Name Freq PRN Reason Stop Dose Admin Albuterol/Ipratropium 3 ml 12/20/23 00:53 Ipratropium 0.5 Mg/Albuterol Sulfate 2.5 Mg Ampul.Neb 3 Ml INHALATION Q6H PRN Shortness Of Breath Or Wheezing Aspirin 81 mg 12/20/23 08:00 12/22/23 09:01 Aspirin 81 Mg Chewable Tablet FEED TUBE 81 mg DAILY@0800 ZENAIDA Administration Atorvastatin Calcium 40 mg 12/20/23 21:00 12/22/23 21:19 Atorvastatin 40 Mg Tablet FEED TUBE 40 mg QHS ZENAIDA Administration Dextrose 12.5 gm 12/22/23 16:36 Dextrose 50% 25 Gm/50 Ml Syringe IV PUSH PRN PRN Hypoglycemia Protocol Folic Acid 1 mg 12/20/23 09:00 12/22/23 09:01 Folic Acid 1 Mg Tablet FEED TUBE 1 mg DAILY ZENAIDA Administration Glucagon 1 mg 12/22/23 16:36 Glucagon For Inj 1 Mg Vial IM PRN PRN Hypoglycemia Protocol Glucose 15 gm 12/22/23 16:36 Glucose Oral Gel 15 Gm Of Glucse In 37.5 Gm Tube PO PRN PRN Hypoglycemia Protocol Piperacillin Sod/Tazobactam Sod 4.5 gm in 100 mls @ 200 mls/hr 12/22/23 06:00 12/23/23 06:01 Zosyn 4.5 Gm/Ns 100 Ml IVPB 200 mls/hr Q6HR ZENAIDA Administration Lactated Ringer's 1,000 mls @ 75 mls/hr 12/22/23 10:40 12/23/23 06:01 Lr - Lactated Ringers Iv IV CONT 75 mls/hr .[id number] ZENAIDA Administration Dextrose 1,000 mls @ 100 mls/hr 12/22/23 16:36 Dextrose 5% 1,000 Ml IVPB PRN PRN Hypoglycemia Protocol Insulin Aspart 2 - 5 units 12/22/23 18:00 12/23/23 06:04 Insulin Aspart (*Bkc) 100 Units/Ml SUB-Q 3 units Q6HR ZENAIDA Administration Protocol Melatonin 6 mg 12/20/23 01:00 12/22/23 21:19 Melatonin 3 Mg Tablet FEED TUBE 6 mg HS ZENAIDA Administration Metoprolol Tartrate 5 mg 12/22/23 17:12 12/22/23 17:55 Metoprolol Tartrate Inj 5 Mg/5 Ml Vial IV PUSH 5 mg Q12HR PRN Administration Tachycardia Miscellaneous Information 1 each 12/20/23 00:01 Please Change All Medications In The Future To, By Tube Feed Please. Thank You. XX 01/19/24 00:00 CLARIFY ZENAIDA Miscellaneous Information 1 each 12/20/23 00:01 Please Change All Medications In The Future To, By Tube Feed Please. Thank You. XX 01/19/24 00:00 CLARIFY ZENAIDA Miscellaneous Information 0 each 12/22/23 00:01 12/22/23 17:55 Metoprolol Prn For Tachycardia - Please Provide Heart Rate Parameters For When To Give Thi XX 01/21/24 00:00 Not Given CLARIFY ZENAIDA Morphine Sulfate 2 mg 12/22/23 16:02 12/22/23 16:21 Morphine Sulfate (*Crx) 2 Mg/Ml Inj IV PUSH 2 mg Q4H PRN Administration Pain Rated 7-10 Ondansetron HCl 4 mg 12/20/23 01:02 Ondansetron Inj 4 Mg/2 Ml Vial IV PUSH Q6H PRN Nausea And Vomiting Pantoprazole Sodium 40 mg 12/20/23 09:00 12/22/23 09:01 Pantoprazole Sodium Iv 40 Mg Vial IV PUSH 40 mg QAM ZENAIDA Administration Radiology Results: ITS Impressions Chest X-Ray 12/19/23 19:39 IMPRESSION: No focal infiltrate or effusion. Neck/Chest CT 12/19/23 21:02 IMPRESSION: 1. No definite abnormality seen. CT soft tissue neck chest w Ordering provider: Maya Lundberg PA-C History: 78 years Male with . leukocytosis, tachycardia, productive cough . Comparison: None. Technique: CT chest with IV contrast. Findings: VISUALIZED THORACIC INLET: Nodule in the right lower thyroid. MEDIASTINUM: Aorta/coronary arteries: Mild atheromatous disease. Heart/other: The heart is not enlarged. Lymph nodes: No mediastinal or hilar adenopathy. Calcified right hilar lymph nodes. LUNGS: Thickening of the interstitial tissues seen in the right upper lobe with minimal infiltrate which may indicate early pneumonia but fibrotic changes are possible. Dependent atelectatic changes in the lower lobes. No pulmonary nodules or masses. No effusions. No pneumothorax. Calcification seen adjacent to the right transverse fissure. VISUALIZED UPPER ABDOMEN: Status post cholecystectomy. Atrophic pancreas. Otherwise, the visualized upper abdomen is normal. MUSCULOSKELETAL: Soft tissues: The superficial soft tissues are normal. Bones: Age appropriate degenerative changes of the spine. IMPRESSION: Interstitial thickening in the right upper lobe with minimal infiltrate. Pneumonitis versus fibrotic changes are not excluded. Follow-up advised. Head CT 12/22/23 13:43 IMPRESSION: 1. Normal aging brain. 2. Type II odontoid fracture with screw fixation. Chest/Abdomen/Pelvis CTA 12/22/23 13:52 IMPRESSION: 1. Mckeon balloon in abnormal position in the prosthetic urethra. Small volume of hematoma in the bladder. Labs Labs: Laboratory Results - last 24 hr 12/22/23 12/22/23 12/22/23 07:45 10:12 11:33 WBC RBC Hgb Hct MCV MCH MCHC RDW Plt Count MPV Immature Gran % (Auto) Neut % (Auto) Lymph % (Auto) [place] % (Auto) Eos % (Auto) Baso % (Auto) Lymph # (Auto) [place] # (Auto) Eos # (Auto) Baso # (Auto) Abs Immat Gran (auto) Absolute Neuts (auto) Absolute Nucleated RBC Nucleated RBC % Sodium Potassium Chloride Carbon Dioxide Anion Gap BUN Creatinine Estim Creat Clear Calc Estimated GFR Glucose POC Capillary Glucose 298 H 297 H Lactic Acid Calcium Magnesium Total Bilirubin AST ALT Alkaline Phosphatase Ammonia < 9 L Total Protein Albumin Urine Color Urine Appearance Urine pH Ur Specific [place] Urine Protein Urine Glucose (UA) Urine Ketones Ur Blood (Man) Urine Nitrate Urine Bilirubin Urine Urobilinogen Leukocyte Esterase Rfl Urine RBC Urine WBC Ur Squamous Epith Cells Urine Bacteria Urine Casts 12/22/23 12/22/23 12/22/23 12:53 15:42 18:03 WBC 15.8 H RBC 3.91 L Hgb 11.3 L Hct 36.6 L MCV 93.6 MCH 28.9 MCHC 30.9 L RDW 16.6 H Plt Count 205 MPV 10.0 Immature Gran % (Auto) 0.6 H Neut % (Auto) 81.6 H Lymph % (Auto) 8.6 L [place] % (Auto) 8.6 H Eos % (Auto) 0.3 Baso % (Auto) 0.3 Lymph # (Auto) 1.35 [place] # (Auto) 1.4 H Eos # (Auto) 0.0 Baso # (Auto) 0.1 Abs Immat Gran (auto) 0.10 H Absolute Neuts (auto) 12.9 H Absolute Nucleated RBC 0.000 Nucleated RBC % 0.0 Sodium 148 H Potassium 3.0 L Chloride 116 H Carbon Dioxide 25 Anion Gap 7 BUN 36 H Creatinine 0.90 Estim Creat Clear Calc 59 Estimated GFR > 60 Glucose 285 H POC Capillary Glucose 230 H Lactic Acid 1.4 Calcium 8.8 Magnesium Total Bilirubin 1.2 AST 70 H ALT 40 Alkaline Phosphatase 102 Ammonia Total Protein 7.0 Albumin 3.4 L Urine Color Red H Urine Appearance Turbid H Urine pH 5.5 Ur Specific [place] > 1.045 H Urine Protein 2+ H Urine Glucose (UA) Trace H Urine Ketones Negative Ur Blood (Man) 3+ H Urine Nitrate Negative Urine Bilirubin Negative Urine Urobilinogen 1.0 Leukocyte Esterase Rfl 1+ H Urine RBC >100 H Urine WBC 11-20 H Ur Squamous Epith Cells None seen Urine Bacteria None seen Urine Casts 3-5 12/22/23 12/23/23 12/23/23 23:59 05:37 06:42 WBC 13.4 H RBC 3.65 L Hgb 10.7 L Hct 34.5 L MCV 94.5 MCH 29.3 MCHC 31.0 L RDW 16.7 H Plt Count 199 MPV 9.9 Immature Gran % (Auto) 0.7 H Neut % (Auto) 75.3 H Lymph % (Auto) 13.0 L [place] % (Auto) 9.1 H Eos % (Auto) 1.6 Baso % (Auto) 0.3 Lymph # (Auto) 1.75 [place] # (Auto) 1.2 H Eos # (Auto) 0.2 Baso # (Auto) 0.0 Abs Immat Gran (auto) 0.09 H Absolute Neuts (auto) 10.1 H Absolute Nucleated RBC 0.000 Nucleated RBC % 0.0 Sodium 152 H Potassium 3.4 Chloride 118 H Carbon Dioxide 25 Anion Gap 9 BUN 41 H Creatinine 1.10 Estim Creat Clear Calc 49 Estimated GFR > 60 Glucose 257 H POC Capillary Glucose 251 H 254 H Lactic Acid Calcium 8.8 Magnesium 2.2 Total Bilirubin 0.7 AST 70 H ALT 41 Alkaline Phosphatase 93 Ammonia Total Protein 6.0 L Albumin 3.0 L Urine Color Urine Appearance Urine pH Ur Specific [place] Urine Protein Urine Glucose (UA) Urine Ketones Ur Blood (Man) Urine Nitrate Urine Bilirubin Urine Urobilinogen Leukocyte Esterase Rfl Urine RBC Urine WBC Ur Squamous Epith Cells Urine Bacteria Urine Casts Quality VTE Prophylaxis VTE prophylaxis: mechanical ordered
[2023-12-23] MEDS: PANTOPRAZOLE SODIUM IV 40 MG VIAL IV PUSH (08:21)
[2023-12-23] MEDS: ASPIRIN 81 MG CHEWABLE TABLET FEED TUBE (08:21)
[2023-12-23] MEDS: FOLIC ACID 1 MG TABLET FEED TUBE (08:23)
--- NOTE | 2023-12-23 09:09 | PCNFU ---
Nutrition Follow-Up Complete: Inadequate energy intake related to NPO status with no orders for tube feedings at this time as evidenced by diet orders. *Spoke with nursing and hospitalist - ok to order tube feeds and start feeding per rec Goal:Meet estimated needs via tube feeding pt progressing towards goal with tube feeding, continue with same goal. Pt current nutrition is NPO, Tube feeding: Glucerna 1.2 @ 40ml/hr to advance to 75ml/hr, flushes increased to 150ml q 4 hrs. Nutrition recommendation: continue with current plan of care Last recorded weight is 78.8 kg. Bowel Motility: +BM 12/21 Labs Reviewed: Hgb:10.7, HCT:34.5, alb:3.0, NA:152, BUN:41, Glu:257 Meds Noted: novolog, zofran Skin: No pressure injuries Additional Notes: Pt started on tube feeds of Glucerna 1.2, currently running at 40ml/hr and well tolerated. Goal is to progress to 75ml/hr today as tolerated per recommendation. Flushes increased to 150ml q 4 hrs due to Na level of 152. This totals 1980kcals, 99g protein, 2228 ml free water per day. This is sufficient to meet estimated needs. Agree with orders. Monitor tube feeding, tolerance, wt, labs. Follow up every Friday and Friday.
[2023-12-23] MEDS: METOPROLOL TARTRATE 12.5 MG TABLET PO ×2 (09:21→20:03)
[2023-12-23 11:53] LABS: Glucose Point of Care 275 mg/dl (65-105)
[2023-12-23 18:40] LABS: Glucose Point of Care 321 mg/dl (65-105)
[2023-12-23] MEDS: MELATONIN 3 MG TABLET 6 MG FEED TUBE (20:03)
[2023-12-23] MEDS: ATORVASTATIN 40 MG TABLET FEED TUBE (20:03)
[2023-12-23] MEDS: MORPHINE SULFATE (*CRX) 2 MG/ML INJ IV PUSH (22:23)
[2023-12-23 23:50] LABS: Glucose Point of Care 263 mg/dl (65-105)
[2023-12-24] VITALS (10 sets, daily range): BP systolic 132–160; BP diastolic 51–77; PULSE 76–108; RESP 14–16; TEMP 36–36.9; O2SAT 95–98
--- NOTE | 2023-12-24 00:30 | PC.NURSE ---
Addendum entered by Katarina Alvarez RN 12/24/23 01:54: *Dr Goode Original Note: Dr Cameron notified of pt restlessness with no relief from morphine, tachypnea, and low grade temp. Will put in tylenol order and may do repeat blood cultures if pt has fever greater than 100.
[2023-12-24] MEDS: ACETAMINOPHEN 325 MG TABLET 650 MG FEED TUBE (02:41)
--- NOTE | 2023-12-24 03:59 | PC.NURSE ---
Bladder scan performed to test for post-void residual per Dr Goode, shows 160ml. Dr garay.
[2023-12-24 04:09] LABS: Influenza A QL RT-PCR Negative (Negative); Influenza B QL RT-PCR Negative (Negative); SARS-CoV-2 RNA PCR Negative (Negative)
[2023-12-24 06:05] LABS: Glucose Point of Care 286 mg/dl (65-105)
[2023-12-24] MEDS: INSULIN ASPART (*BKC) 100 UNITS/ML SUB-Q ×3 (06:11→18:15)
[2023-12-24] MEDS: PIPERACILLIN/TAZ 4.5G/NS 100ML 4.5 GM/100 ML BAG IVPB (06:12)
[2023-12-24 07:05] LABS: Basophils Absolute Auto 0.1 K/mm3 (0.0-0.1); Basophils Percent Auto 0.4 % (0.2-1.2); Eosinophils Absolute Auto 0.2 K/mm3 (0-0.3); Eosinophils Percent Auto 1.4 % (0-4.4); Hematocrit 33.9 % (42.0-52.0); Hemoglobin 10.8 g/dL (14.0-18.0); Immature Granulocyte Percent A 0.8 % (0-0.5); Lymphocytes Absolute Auto 1.66 K/mm3 (0.9-3.2); Lymphocytes Percent Auto 12.5 % (18.3-44.2); Mean Corpuscular HGB Conc 31.9 g/dl (32-36); Mean Corpuscular Hemoglobin 29.8 pg (26-34); Mean Corpuscular Volume 93.6 fl (80-100); Mean Platelet Volume 10.4 fl (7.4-10.4); Monocytes Absolute Auto 1.2 K/mm3 (0.1-0.6); Monocytes Percent Auto 8.9 % (2.6-8.5); Neutrophils Absolute Auto 10.1 K/mm3 (1.3-6.7); Platelet Count Result 186 k/mm3 (150-375); Red Blood Count 3.62 M/mm3 (4.6-6.20); Red Cell Distribution Width 16.3 % (11.5-14.5); White Blood Count 13.3 K/mm3 (4.5-10.0)
[2023-12-24 07:20] LABS: Alanine Aminotransferase 57 U/L (6-50); Alkaline Phosphatase 98 U/L (38-126); Anion Gap 8 mmol/L (4-12); Aspartate Amino Transferase 95 U/L (17-59); Bilirubin,Total 0.7 mg/dL (0.2-1.3); Blood Urea Nitrogen 31 mg/dL (9-20); Calcium 8.6 mg/dL (8.4-10.2); Carbon Dioxide 28 mmol/L (22-30); Chloride 113 mmol/L (98-107); Estimated CRCL calculation 59 ml/min; Estimated Glomerular Filt Rate > 60; Glucose 304 mg/dL (65-110); Potassium 3.3 mmol/L (3.4-5.0); Sodium 149 mmol/L (137-145)
[2023-12-24] MEDS: METOPROLOL TARTRATE 12.5 MG TABLET PO ×2 (08:46→21:08)
[2023-12-24] MEDS: PANTOPRAZOLE SODIUM IV 40 MG VIAL IV PUSH (08:46)
[2023-12-24] MEDS: ASPIRIN 81 MG CHEWABLE TABLET FEED TUBE (08:46)
[2023-12-24] MEDS: FOLIC ACID 1 MG TABLET FEED TUBE (08:46)
--- NOTE | 2023-12-24 11:18 | P.PNIM_ITS ---
Progress Note: A&P Assessment and Plan (1) Sepsis: Code(s): A41.9 - Sepsis, unspecified organism Status: Acute Assessment and Plan: 12/22/23: * Pt meeting sepsis criteria with Tachypnea, Tachycardia, and known source of infection in the lungs * Blood cultures already pending prior to decompensation today. Preliminary results are negative. * Sputum culture appeared contaminated. * Pt's abx today were continued with Zosyn and Vancomycin and Flagyl were discontinued in the setting of Negative cultures to date. * Continue with Zosyn at this time. * New blood cultures pending. * New lactic acid is normal at 1.4. * Interval decrease in Leukocytosis from 17.8-->15.8 * CT head negative - Independently reviewed by myself. * CTA C/A/P showing a dislodged mckeon with balloon inflated in urethra and small hematoma in bladder. No PE or enlarging PNA/effusion. - Independently reviewed by myself. * Continue to monitor and trend labs and VS. * Telemetry * Code status DNR with no Intubation or CPR. Consider all other treatments including BiPap. 12/23/23: * Urine and blood cultures pending, no growth to date on preliminary read * Continue cardiac monitoring * WBC down to 13.4 12/24/23: * Urine culture negative * Continue cardiac monitoring * White blood cell count 13.3 (2) Dislodged Mckeon catheter: Code(s): T83.021A - Displacement of indwelling urethral catheter, initial encounter Status: Acute Assessment and Plan: 12/22/23: * As noted per CT scan with residual bladder hematoma. * Mckeon was replaced without difficulty per nurse and it is secured to his leg. * No blood clots in urine. * If decrease of UOP or if any blood clots, consider Urology consult and pt may need CBI. * PRN Pain meds. 12/23/23: * Monitor I and O * DC mckeon catheter, monitor for retention as needed (3) Aspiration pneumonia: Qualifiers: Aspiration pneumonia type: unspecified Laterality: right Lung location: upper lobe of lung Qualified Code(s): J69.0 - Pneumonitis due to inhalation of food and vomit Code(s): J69.0 - Pneumonitis due to inhalation of food and vomit Status: Acute Assessment and Plan: - Blood and urine cultures obtained. - Continue Zosyn as we follow cultures. - Currently no acute cardiopulmonary distress with good O2 sats on RA > 95 %. 12/22/23: * Pt with increased tachypnea today and tachycardia. No increase in oxygen requirement * Etiology of respiratory change pain response to dislodgement of catheter vs. worsening PNA, vs. effusion vs. PE * CTA ruled out PE, effusion or enlarging PNA * Supportive care with prn oxygen and prn nebs. 12/23/23: * Continue Zosyn 12/24/23: * Change Zosyn to Augmentin and azithromycin per tube (4) Confusion: Code(s): R41.0 - Disorientation, unspecified Status: Acute Assessment and Plan: - Possibly related to infection vs dementia vs delirium from long hospitalization vs Parkinson's vs other. - CT head negative for acute. - vit B12, RPR, TSH all wnl. - Family reports he had an MRI and lumbar puncture recently at [facility] and no et iology for delirium noted. - Continue to monitor changes in mentation. 12/22/23: * Pt is encephalopathic. * Noted to be hypernatremic today, but has not been previously so low suspicion of causation. * With change in status today repeat head CT performed and is negative for any acute findings. * Ammonia checked to be normal at <9. * Vitamin D and B12 are normal. * Etiology is uncertain at this time. * Continue to monitor labs and VS trend. * Neuro checks Q shift. 12/23/23: * Continue with current treatment plan (5) Hypovolemia: Code(s): E86.1 - Hypovolemia Status: Acute Assessment and Plan: 12/22/23: * Likely secondary to poor intake. * TF has been started per dietary orders. * Free water flushes ordered. * Continue LR at 75 ml/hr * Monitor for s/s of further aspiration. * Head of bed up to 60 degrees with TF running. * Aspiration precautions. 12/23/23: * Increased free water flushes q4 hour * DC IVF * Continue with current treatment plan 12/24/23: * Continue free water flushes (6) Adult failure to thrive: Code(s): R62.7 - Adult failure to thrive Status: Acute Assessment and Plan: - Boat Puller consulted for TF recommendations. 12/22/23: * Due to dysphagia after surgery which most likely led to aspiration PNA. * TF has been started and should be continued cautiously in the current setting of PNA. * Daily weight. * Accurate Intake and output * Appreciate Boat Puller continuing to follow along with medicine to adjust the caloric needs as needed. * Change Insulin regimen to Q6 hrs for TF 12/23/23: * Continue tube feeding as tolerated 12/24/23: * Continue tube feeding via G-tube and free water flushes (7) Hypokalemia: Code(s): E87.6 - Hypokalemia Status: Acute Assessment and Plan: 12/22/23: * Noted potassium level of 3.0. * Potassium rider of 40 mEq IVPB x1 * Recheck Potassium in AM. * Telemetry 12/23/23: * Potassium 3.4 * No replacement needed at this time 12/24/23: * Potassium 3.3 * Will give 40 mEq of potassium now per tube (8) Acute hypernatremia: Code(s): E87.0 - Hyperosmolality and hypernatremia Status: Acute Assessment and Plan: 12/22/23: * Sodium noted to be 151. * Free water flushes of 100 ml ordered every 4 hours. * Normal saline at 75 ml/hr changes to LR at 75 ml/hr. * Continue to trend labs and VS. * Telemetry 12/23/23: * Sodium 152 * Increase free water Flushes to 150 q4h * DC IVF * Continue telemetry 12/24/23: * Continue free water flushes 150 q.4 * Sodium down to 149 (9) Lactic acidosis: Code(s): E87.20 - Acidosis, unspecified Status: Resolved Assessment and Plan: - Possibly secondary to dehydration +/vs infection vs other. - Resolved with IVF hydration. 12/22/23: * Lactic acid today 1.4. * Resolved Time Spent With Patient Time with patient: 25 - 35 minutes Subjective Date/time seen: 12/24/23 11:18 Interval history: Interval history: This is a 78 year old male who presented to the hospital on 12/20/23 with AMS, cough with productive sputum. Work up in the hospital included a head Ct which shown a normal aging brain, type II odontoid fracture with screw fixation. Chest/abdomen/pelvis CTA that shown mckeon balloon in abnormal position in the prosthetic urethra with small volume hematoma in the bladder. Initial labs revealed WBC 18.2, hgb 13.0, Na+ 140, Chloride 97, Lactic acid 2.6>1.3, BNP 903, TSH 2.930. UA shown a urine specific gravity of 1.045, 2+ protein, trace glucose, 3+ urine blood, 1+ leukocytes, > 100 urine RBCs, 11-20 urine WBCs. Urine and blood cultures obtained and pending. Patient currently on Zosyn Patient [facility] having [facility] surgery for neck fracture and was discharged to a nursing facility. Since that time his mental status declined. MRI and lumbar puncture at [facility] was negative for etiology for delirium. He was placed on a feeding tube for nutrition. Subjective: Labs and imaging reviewed. Follows some commands. Sitter at bedside due to him pulling on tubes and lines. Review of Systems Review of Systems: ROS unobtainable: Yes unobtainable due to mental status Exam Narrative: General: In no acute distress, well nourished Cardiac: Normal S1 and S2. No murmur, gallops or friction rubs, peripheral pulses intact. Respiratory: Lungs clear to auscultation, no adventitious lung sounds, currently on room air Gastrointestinal: soft, non-distended, non-tender, normoactive bowel sounds. G tube with tube feeding infusing : voiding Neuro: Alert, confused, unable to assess orientation as he is non-verbal Psych: Unable to truly assess due to mental status Objective Data Vital Signs Vital Signs: Vital Signs - 24 hr 12/23/23 12:02 12/23/23 12:00 12/23/23 14:13 Temperature 97.1 F L Pulse Rate 107 H 101 H Respiratory Rate 26 H Blood Pressure 161/89 H Pulse Oximetry 98 Oxygen Delivery Room Air 12/23/23 16:00 12/23/23 16:00 12/23/23 20:03 Temperature 98.3 F Pulse Rate 113 H 110 H 105 H Respiratory Rate 22 H Blood Pressure 140/80 Pulse Oximetry 100 Oxygen Delivery 12/23/23 20:00 12/23/23 20:00 12/23/23 23:53 Temperature 99.0 F 99.5 F Pulse Rate 110 H 106 H 114 H Respiratory Rate 20 36 H Blood Pressure 139/77 159/71 H Pulse Oximetry 94 90 Oxygen Delivery 12/24/23 00:13 12/24/23 00:00 12/24/23 02:05 Temperature 98.4 F Pulse Rate 108 H Respiratory Rate Blood Pressure Pulse Oximetry 95 Oxygen Delivery 12/24/23 04:00 12/24/23 04:00 12/24/23 08:00 Temperature 98.1 F 98.0 F Pulse Rate 101 H 93 98 Respiratory Rate 16 16 Blood Pressure 141/77 H 138/67 Pulse Oximetry 98 95 Oxygen Delivery Intake/Output Intake/Output: Intake & Output 12/21/23 12/22/23 12/23/23 12/24/23 23:59 23:59 23:59 23:59 Intake Total 1665 1400 2350 100 Output Total 425 710 400 Balance 4974 888 0389 100 Meds/Results Medications: Active Medications Generic Name Dose Route Start Last Admin Trade Name Freq PRN Reason Stop Dose Admin Acetaminophen 650 mg 12/24/23 02:31 12/24/23 02:41 Acetaminophen 325 Mg Tablet FEED TUBE 650 mg Q4H PRN Administration Mild Pain (1-3) or Fever Albuterol/Ipratropium 3 ml 12/20/23 00:53 Ipratropium 0.5 Mg/Albuterol Sulfate 2.5 Mg Ampul.Neb 3 Ml INHALATION Q6H PRN Shortness Of Breath Or Wheezing Amoxicillin/Clavulanate Potassium 1 tablet 12/24/23 11:15 Amoxicillin/Clavulanate K 875-125 Mg Tab FEED TUBE Q12HR ZENAIDA Aspirin 81 mg 12/20/23 08:00 12/24/23 08:46 Aspirin 81 Mg Chewable Tablet FEED TUBE 81 mg DAILY@0800 ZENAIDA Administration Atorvastatin Calcium 40 mg 12/20/23 21:00 12/23/23 20:03 Atorvastatin 40 Mg Tablet FEED TUBE 40 mg QHS ZENAIDA Administration Azithromycin 500 mg 12/25/23 09:00 Azithromycin 250 Mg Tablet FEED TUBE DAILY ZENAIDA Dextrose 12.5 gm 12/22/23 16:36 Dextrose 50% 25 Gm/50 Ml Syringe IV PUSH PRN PRN Hypoglycemia Protocol Folic Acid 1 mg 12/20/23 09:00 12/24/23 08:46 Folic Acid 1 Mg Tablet FEED TUBE 1 mg DAILY ZENAIDA Administration Glucagon 1 mg 12/22/23 16:36 Glucagon For Inj 1 Mg Vial IM PRN PRN Hypoglycemia Protocol Glucose 15 gm 12/22/23 16:36 Glucose Oral Gel 15 Gm Of Glucse In 37.5 Gm Tube PO PRN PRN Hypoglycemia Protocol Dextrose 1,000 mls @ 100 mls/hr 12/22/23 16:36 Dextrose 5% 1,000 Ml IVPB PRN PRN Hypoglycemia Protocol Insulin Aspart 2 - 5 units 12/22/23 18:00 12/24/23 06:11 Insulin Aspart (*Bkc) 100 Units/Ml SUB-Q 3 units Q6HR ZENAIDA Administration Protocol Insulin Glargine 12 units 12/24/23 21:00 Insulin Glargine (*Bkc) 100 Units/Ml 0.15 units/kg (12 units) SUB-Q HS ZENAIDA Melatonin 6 mg 12/20/23 01:00 12/23/23 20:03 Melatonin 3 Mg Tablet FEED TUBE 6 mg HS ZENAIDA Administration Metoprolol Tartrate 5 mg 12/22/23 17:12 12/22/23 17:55 Metoprolol Tartrate Inj 5 Mg/5 Ml Vial IV PUSH 5 mg Q12HR PRN Administration Tachycardia Metoprolol Tartrate 12.5 mg 12/23/23 09:00 12/24/23 08:46 Metoprolol Tartrate 12.5 Mg Tablet PO 12.5 mg Q12HR ZENAIDA Administration Miscellaneous Information 1 each 12/20/23 00:01 Please Change All Medications In The Future To, By Tube Feed Please. Thank You. XX 01/19/24 00:00 CLARIFY ZENAIDA Miscellaneous Information 1 each 12/20/23 00:01 Please Change All Medications In The Future To, By Tube Feed Please. Thank You. XX 01/19/24 00:00 CLARIFY ZENAIDA Miscellaneous Information 0 each 12/22/23 00:01 12/22/23 17:55 Metoprolol Prn For Tachycardia - Please Provide Heart Rate Parameters For When To Give Thi XX 01/21/24 00:00 Not Given CLARIFY ZENAIDA Morphine Sulfate 2 mg 12/22/23 16:02 12/23/23 22:23 Morphine Sulfate (*Crx) 2 Mg/Ml Inj IV PUSH 2 mg Q4H PRN Administration Pain Rated 7-10 Ondansetron HCl 4 mg 12/20/23 01:02 Ondansetron Inj 4 Mg/2 Ml Vial IV PUSH Q6H PRN Nausea And Vomiting Pantoprazole Sodium 40 mg 12/20/23 09:00 12/24/23 08:46 Pantoprazole Sodium Iv 40 Mg Vial IV PUSH 40 mg QAM ZENAIDA Administration Radiology Results: ITS Impressions Chest X-Ray 12/19/23 19:39 IMPRESSION: No focal infiltrate or effusion. Neck/Chest CT 12/19/23 21:02 IMPRESSION: 1. No definite abnormality seen. CT soft tissue neck chest w Ordering provider: Maya Lundberg PA-C History: 78 years Male with . leukocytosis, tachycardia, productive cough . Comparison: None. Technique: CT chest with IV contrast. Findings: VISUALIZED THORACIC INLET: Nodule in the right lower thyroid. MEDIASTINUM: Aorta/coronary arteries: Mild atheromatous disease. Heart/other: The heart is not enlarged. Lymph nodes: No mediastinal or hilar adenopathy. Calcified right hilar lymph nodes. LUNGS: Thickening of the interstitial tissues seen in the right upper lobe with minimal infiltrate which may indicate early pneumonia but fibrotic changes are possible. Dependent atelectatic changes in the lower lobes. No pulmonary nodules or masses. No effusions. No pneumothorax. Calcification seen adjacent to the right transverse fissure. VISUALIZED UPPER ABDOMEN: Status post cholecystectomy. Atrophic pancreas. Otherwise, the visualized upper abdomen is normal. MUSCULOSKELETAL: Soft tissues: The superficial soft tissues are normal. Bones: Age appropriate degenerative changes of the spine. IMPRESSION: Interstitial thickening in the right upper lobe with minimal infiltrate. Pneumonitis versus fibrotic changes are not excluded. Follow-up advised. Head CT 12/22/23 13:43 IMPRESSION: 1. Normal aging brain. 2. Type II odontoid fracture with screw fixation. Chest/Abdomen/Pelvis CTA 12/22/23 13:52 IMPRESSION: 1. Mckeon balloon in abnormal position in the prosthetic urethra. Small volume of hematoma in the bladder. Labs Labs: Laboratory Results - last 24 hr 12/23/23 12/23/23 12/23/23 11:39 18:38 23:41 WBC RBC Hgb Hct MCV MCH MCHC RDW Plt Count MPV Immature Gran % (Auto) Neut % (Auto) Lymph % (Auto) Braxton % (Auto) Eos % (Auto) Baso % (Auto) Lymph # (Auto) Braxton # (Auto) Eos # (Auto) Baso # (Auto) Abs Immat Gran (auto) Absolute Neuts (auto) Absolute Nucleated RBC Nucleated RBC % Sodium Potassium Chloride Carbon Dioxide Anion Gap BUN Creatinine Estim Creat Clear Calc Estimated GFR Glucose POC Capillary Glucose 275 H 321 H 263 H Calcium Magnesium Total Bilirubin AST ALT Alkaline Phosphatase Total Protein Albumin Influenza A (RT-PCR) Influenza B (RT-PCR) SARS-CoV-2 RNA (RT-PCR) 12/24/23 12/24/23 12/24/23 03:27 06:02 06:30 WBC 13.3 H RBC 3.62 L Hgb 10.8 L Hct 33.9 L MCV 93.6 MCH 29.8 MCHC 31.9 L RDW 16.3 H Plt Count 186 MPV 10.4 Immature Gran % (Auto) 0.8 H Neut % (Auto) 76.0 H Lymph % (Auto) 12.5 L Braxton % (Auto) 8.9 H Eos % (Auto) 1.4 Baso % (Auto) 0.4 Lymph # (Auto) 1.66 Braxton # (Auto) 1.2 H Eos # (Auto) 0.2 Baso # (Auto) 0.1 Abs Immat Gran (auto) 0.10 H Absolute Neuts (auto) 10.1 H Absolute Nucleated RBC 0.000 Nucleated RBC % 0.0 Sodium 149 H Potassium 3.3 L Chloride 113 H Carbon Dioxide 28 Anion Gap 8 BUN 31 H D Creatinine 0.90 Estim Creat Clear Calc 59 Estimated GFR > 60 Glucose 304 H POC Capillary Glucose 286 H Calcium 8.6 Magnesium 2.0 Total Bilirubin 0.7 AST 95 H ALT 57 H Alkaline Phosphatase 98 Total Protein 6.0 L Albumin 3.0 L Influenza A (RT-PCR) Negative Influenza B (RT-PCR) Negative SARS-CoV-2 RNA (RT-PCR) Negative Quality VTE Prophylaxis VTE prophylaxis: mechanical ordered
[2023-12-24 11:51] LABS: Glucose Point of Care 331 mg/dl (65-105)
[2023-12-24] MEDS: AMOXICILLIN/CLAVULANATE K 875-125 MG TAB 1 TABLET FEED TUBE ×2 (12:01→21:08)
[2023-12-24] MEDS: POTASSIUM CHLORIDE 20 MEQ PACKET (FOR LIQUID) 40 MEQ PO (12:01)
[2023-12-24 17:55] LABS: Glucose Point of Care 327 mg/dl (65-105)
[2023-12-24] MEDS: POTASSIUM CHLORIDE 20 MEQ PACKET (FOR LIQUID) 40 MEQ FEED TUBE (18:15)
[2023-12-24 18:58] LABS: Pneumococcal Antigen Urine NOT DETECTED
[2023-12-24] MEDS: MELATONIN 3 MG TABLET 6 MG FEED TUBE (21:08)
[2023-12-24] MEDS: ATORVASTATIN 40 MG TABLET FEED TUBE (21:08)
[2023-12-24 21:20] LABS: Glucose Point of Care 328 mg/dl (65-105)
[2023-12-24] MEDS: INSULIN GLARGINE (*BKC) 100 UNITS/ML 12 UNITS SUB-Q (21:33)
[2023-12-25] VITALS (12 sets, daily range): BP systolic 129–183; BP diastolic 44–95; PULSE 87–102; RESP 14–24; TEMP 36.2–37.2; O2SAT 93–98; BMI 10.0
[2023-12-25] MEDS: INSULIN ASPART (*BKC) 100 UNITS/ML SUB-Q ×8 (00:24→23:49)
[2023-12-25 00:57] LABS: Glucose Point of Care 273 mg/dl (65-105)
[2023-12-25 07:49] LABS: Basophils Absolute Auto 0.1 K/mm3 (0.0-0.1); Basophils Percent Auto 0.4 % (0.2-1.2); Eosinophils Absolute Auto 0.3 K/mm3 (0-0.3); Eosinophils Percent Auto 2.6 % (0-4.4); Hematocrit 35.4 % (42.0-52.0); Hemoglobin 10.9 g/dL (14.0-18.0); Immature Granulocyte Absolute 0.09 K/mm3 (0.00-0.031); Immature Granulocyte Percent A 0.8 % (0-0.5); Lymphocytes Absolute Auto 1.39 K/mm3 (0.9-3.2); Lymphocytes Percent Auto 12.1 % (18.3-44.2); Mean Corpuscular HGB Conc 30.8 g/dl (32-36); Mean Corpuscular Hemoglobin 28.5 pg (26-34); Mean Corpuscular Volume 92.4 fl (80-100); Mean Platelet Volume 10.7 fl (7.4-10.4); Monocytes Percent Auto 8.7 % (2.6-8.5); Neutrophils Absolute Auto 8.7 K/mm3 (1.3-6.7); Neutrophils Percent Auto 75.4 % (45.5-73.1); Platelet Count Result 197 k/mm3 (150-375); Red Blood Count 3.83 M/mm3 (4.6-6.20); Red Cell Distribution Width 16.2 % (11.5-14.5); White Blood Count 11.5 K/mm3 (4.5-10.0)
[2023-12-25 07:54] LABS: Glucose Point of Care 335 mg/dl (65-105)
[2023-12-25 07:57] LABS: Alanine Aminotransferase 58 U/L (6-50); Albumin Level 3.3 g/dL (3.5-5.1); Alkaline Phosphatase 97 U/L (38-126); Anion Gap 9 mmol/L (4-12); Aspartate Amino Transferase 62 U/L (17-59); Bilirubin,Total 0.5 mg/dL (0.2-1.3); Blood Urea Nitrogen 30 mg/dL (9-20); Carbon Dioxide 27 mmol/L (22-30); Chloride 110 mmol/L (98-107); Estimated CRCL calculation 75 ml/min; Estimated Glomerular Filt Rate > 60; Glucose 350 mg/dL (65-110); Magnesium 2.1 mg/dL (1.6-2.3); Potassium 3.8 mmol/L (3.4-5.0); Sodium 146 mmol/L (137-145)
[2023-12-25] MEDS: INSULIN GLARGINE (*BKC) 100 UNITS/ML 10 UNITS SUB-Q (08:26)
[2023-12-25] MEDS: AZITHROMYCIN 250 MG TABLET 500 MG FEED TUBE (08:30)
[2023-12-25] MEDS: AMOXICILLIN/CLAVULANATE K 875-125 MG TAB 1 TABLET FEED TUBE ×2 (08:30→21:47)
[2023-12-25] MEDS: FOLIC ACID 1 MG TABLET FEED TUBE (08:30)
[2023-12-25] MEDS: ASPIRIN 81 MG CHEWABLE TABLET FEED TUBE (08:30)
[2023-12-25] MEDS: METOPROLOL TARTRATE 12.5 MG TABLET PO ×2 (08:31→21:48)
[2023-12-25 10:14] LABS: Glucose Point of Care 330 mg/dl (65-105)
[2023-12-25 11:43] LABS: Glucose Point of Care 357 mg/dl (65-105)
--- NOTE | 2023-12-25 14:54 | P.PNIM_ITS ---
Progress Note: A&P Assessment and Plan (1) Sepsis: Code(s): A41.9 - Sepsis, unspecified organism Status: Acute Assessment and Plan: On admission, patient met criteria for sepsis: Tachypnea, Tachycardia, and pos sible infection/pneumonia. Started on empiric Zosyn, Flagyl, Vanc, narrowed to Zosyn. Lactic acid normalized. White count improving 17.8>15.8>13>11 IMAGING 12/21 CT head no acute findings 1. Normal aging brain. 2. Type II odontoid fracture with screw fixation. CTA C/A/P showing a dislodged mckeon with balloon inflated in urethra and small hematoma in bladder, bladder wall thickening. No PE or enlarging PNA/effusion. PLAN * Sputum culture appeared contaminated. * Continue with Zosyn * Follow final blood cultures * Continue to monitor and trend labs and VS. * Telemetry Code status DNR with no Intubation or CPR. Consider all other treatments including BiPap. (2) Dislodged Mckeon catheter: Code(s): T83.021A - Displacement of indwelling urethral catheter, initial encounter Status: Acute Assessment and Plan: 12/22/23: * As noted per CT scan with residual bladder hematoma. * Mckeon was replaced without difficulty per nurse and it is secured to his leg. * No blood clots in urine. * If decrease of UOP or if any blood clots, consider Urology consult and pt may need CBI. * PRN Pain meds. 12/23/23: * Monitor I and O * DC mckeon catheter, monitor for retention as needed (3) Aspiration pneumonia: Qualifiers: Aspiration pneumonia type: unspecified Laterality: right Lung location: upper lobe of lung Qualified Code(s): J69.0 - Pneumonitis due to inhalation of food and vomit Code(s): J69.0 - Pneumonitis due to inhalation of food and vomit Status: Acute Assessment and Plan: Blood and urine cultures obtained. (4) Confusion: Code(s): R41.0 - Disorientation, unspecified Status: Acute Assessment and Plan: Possibly related to infection vs dementia vs delirium from long hospitalization vs Parkinson's vs other. CT head negative for acute. Vitamin B12, Vitamin D, RPR, TSH, ammonia all wnl. Family reports an MRI and lumbar puncture at [facility] recently revealed no etiology for delirium - Continue to monitor changes in mentation. - Treating elevated sodium/dehydration, and hyperglycemia as noted -Neuroccks q shift (5) Hypovolemia: Code(s): E86.1 - Hypovolemia Status: Acute Assessment and Plan: Likely secondary to poor intake Tube feeds and free water flushes as ordered. (6) Adult failure to thrive: Code(s): R62.7 - Adult failure to thrive Status: Acute Assessment and Plan: Dysphagia post op complicated by aspiration pneumonia --Campaign Director consulted for TF recommendations --TF started, continuing vs G-tube, free water flushes --Strict I&O --Titrating insulin with bolus feeds (7) Hypokalemia: Code(s): E87.6 - Hypokalemia Status: Acute Assessment and Plan: Potassium intermittently low, 3-3.4 repleted --3.8 today (8) Acute hypernatremia: Code(s): E87.0 - Hyperosmolality and hypernatremia Status: Acute Assessment and Plan: Sodium up to 152 12/22, improving with IV fluids, now with free water flushes -- 146 today --Continue water flushes (9) Lactic acidosis: Code(s): E87.20 - Acidosis, unspecified Status: Resolved Assessment and Plan: RESOLVED Likely secondary to dehydration. s/p IV fluids 12/22/23: Lactic acid 1.4. Time Spent With Patient Time: 58 minutes Subjective Date/time seen: 12/25/23 14:54 Interval history: Sitter was discontinued Blood sugars elevated Very confused, VSS Patient had a recent prolonged hospitalization for a neck fracture and was discharged to a SNF. Subsequently had a declining mental status for 2 days prior to admission. Recent sputum production. Treating pneumonia Family reported the patient was treated with 7 days of antibiotics from the last hospitalization at [facility] approximately 5 days [employer]PER[employer] here. Patient has had a feeding tube placed approximately 2 weeks ago. He was admitted at [facility] on 11/04/2023. Patient presented saying he has been forgetful recently but stated he had no trauma. He was found to have a type 2 odontoid fracture. 11/15/[address] by Dr. Demetrius Leger, no intraoperative complications. Postoperatively the patient developed dysphagia. He also had desaturations and tachycardia. Upon arrival to [facility] 12/19/2023 patient noted to be sinus tachycardia. Afebrile. Saturating well on room air. Laboratory evaluation demonstrated elevated white count. Patient does not follow commands and is nonverbal. He was started Zosyn for possible aspiration PNA. Blood cultures and sputum culture pending. Chest x-ray no focal infiltrate, however neck and chest CT demonstrated interstitial thickening in the right upper lobe with minimal infiltrate. Head CT without acute intracranial findings. Review of Systems Review of Systems: Unable to obtain due to confusion All systems reviewed & are unremarkable except as noted in HPI and below (Subjective) ROS unobtainable: Yes unobtainable due to medical condition (encephalopathic) and unobtainable due to mental status Exam Narrative: General: In no acute distress, well nourished Cardiac: Normal S1 and S2. No murmur, gallops or friction rubs, peripheral pulses intact. Respiratory: Lungs clear to auscultation, no adventitious lung sounds, currently on room air Gastrointestinal: soft, non-distended, non-tender, normoactive bowel sounds. G tube with tube feeding infusing : voiding Neuro: Alert, confused, unable to assess orientation as he is non-verbal. PERRLA, EOMI, moves all extremities spontaneously Psych: Unable to truly assess due to mental status Objective Data Vital Signs Vital Signs: Vital Signs - 24 hr 12/24/23 16:00 12/24/23 16:00 12/24/23 21:08 Temperature 98.2 F Pulse Rate 88 100 78 Respiratory Rate 16 Blood Pressure 136/62 Pulse Oximetry 97 Oxygen Delivery 12/24/23 20:00 12/24/23 21:49 12/24/23 20:00 Temperature 96.8 F L 96.8 F L Pulse Rate 76 76 Respiratory Rate 14 14 Blood Pressure 160/53 H 160/53 H Pulse Oximetry 97 97 Oxygen Delivery Room Air 12/25/23 00:00 12/25/23 00:00 12/25/23 04:00 Temperature 99.0 F Pulse Rate 93 93 95 Respiratory Rate 14 Blood Pressure 160/70 H Pulse Oximetry 96 Oxygen Delivery 12/25/23 04:00 12/25/23 08:31 12/25/23 08:00 Temperature 98.4 F 97.2 F L Pulse Rate 95 94 89 Respiratory Rate 14 20 Blood Pressure 142/44 H 183/90 H Pulse Oximetry 93 96 Oxygen Delivery 12/25/23 08:02 12/25/23 08:31 12/25/23 12:01 Temperature Pulse Rate 92 92 87 Respiratory Rate 20 Blood Pressure Pulse Oximetry 96 Oxygen Delivery Room Air 12/25/23 12:00 Temperature 97.8 F Pulse Rate 90 Respiratory Rate 18 Blood Pressure 129/84 Pulse Oximetry 93 Oxygen Delivery Intake/Output Intake/Output: Intake & Output 12/22/23 12/23/23 12/24/23 12/25/23 23:59 23:59 23:59 23:59 Intake Total 1400 2350 100 0 Output Total 710 400 333 Balance 690 1950 100 -333 Meds/Results Medications: Active Medications Generic Name Dose Route Start Last Admin Trade Name Freq PRN Reason Stop Dose Admin Acetaminophen 650 mg 12/24/23 02:31 12/24/23 02:41 Acetaminophen 325 Mg Tablet FEED TUBE 650 mg Q4H PRN Administration Mild Pain (1-3) or Fever Albuterol/Ipratropium 3 ml 12/20/23 00:53 Ipratropium 0.5 Mg/Albuterol Sulfate 2.5 Mg Ampul.Neb 3 Ml INHALATION Q6H PRN Shortness Of Breath Or Wheezing Amoxicillin/Clavulanate Potassium 1 tablet 12/24/23 11:15 12/25/23 08:30 Amoxicillin/Clavulanate K 875-125 Mg Tab FEED TUBE 1 tablet Q12HR ZENAIDA Administration Aspirin 81 mg 12/20/23 08:00 12/25/23 08:30 Aspirin 81 Mg Chewable Tablet FEED TUBE 81 mg DAILY@0800 ZENAIDA Administration Atorvastatin Calcium 40 mg 12/20/23 21:00 12/24/23 21:08 Atorvastatin 40 Mg Tablet FEED TUBE 40 mg QHS ZENAIDA Administration Azithromycin 500 mg 12/25/23 09:00 12/25/23 08:30 Azithromycin 250 Mg Tablet FEED TUBE 500 mg DAILY ZENAIDA Administration Dextrose 12.5 gm 12/22/23 16:36 Dextrose 50% 25 Gm/50 Ml Syringe IV PUSH PRN PRN Hypoglycemia Protocol Folic Acid 1 mg 12/20/23 09:00 12/25/23 08:30 Folic Acid 1 Mg Tablet FEED TUBE 1 mg DAILY ZENAIDA Administration Glucagon 1 mg 12/22/23 16:36 Glucagon For Inj 1 Mg Vial IM PRN PRN Hypoglycemia Protocol Glucose 15 gm 12/22/23 16:36 Glucose Oral Gel 15 Gm Of Glucse In 37.5 Gm Tube PO PRN PRN Hypoglycemia Protocol Dextrose 1,000 mls @ 100 mls/hr 12/22/23 16:36 Dextrose 5% 1,000 Ml IVPB PRN PRN Hypoglycemia Protocol Insulin Aspart 2 - 5 units 12/22/23 18:00 12/25/23 11:48 Insulin Aspart (*Bkc) 100 Units/Ml SUB-Q 5 units Q6HR ZENAIDA Administration Protocol Insulin Glargine 12 units 12/24/23 21:00 12/24/23 21:33 Insulin Glargine (*Bkc) 100 Units/Ml 0.15 units/kg (12 units) 12 units SUB-Q Administration HS ZENAIDA Melatonin 6 mg 12/20/23 01:00 12/24/23 21:08 Melatonin 3 Mg Tablet FEED TUBE 6 mg HS ZENAIDA Administration Metoprolol Tartrate 5 mg 12/22/23 17:12 12/22/23 17:55 Metoprolol Tartrate Inj 5 Mg/5 Ml Vial IV PUSH 5 mg Q12HR PRN Administration Tachycardia Metoprolol Tartrate 12.5 mg 12/23/23 09:00 12/25/23 08:31 Metoprolol Tartrate 12.5 Mg Tablet PO 12.5 mg Q12HR ZENAIDA Administration Miscellaneous Information 1 each 12/20/23 00:01 Please Change All Medications In The Future To, By Tube Feed Please. Thank You. XX 01/19/24 00:00 CLARIFY ZENAIDA Miscellaneous Information 1 each 12/20/23 00:01 Please Change All Medications In The Future To, By Tube Feed Please. Thank You. XX 01/19/24 00:00 CLARIFY ZENAIDA Miscellaneous Information 0 each 12/22/23 00:01 12/22/23 17:55 Metoprolol Prn For Tachycardia - Please Provide Heart Rate Parameters For When To Give Thi XX 01/21/24 00:00 Not Given CLARIFY ZENAIDA Morphine Sulfate 2 mg 12/22/23 16:02 12/23/23 22:23 Morphine Sulfate (*Crx) 2 Mg/Ml Inj IV PUSH 2 mg Q4H PRN Administration Pain Rated 7-10 Ondansetron HCl 4 mg 12/20/23 01:02 Ondansetron Inj 4 Mg/2 Ml Vial IV PUSH Q6H PRN Nausea And Vomiting Pantoprazole Sodium 40 mg 10/26/24 09:00 12/25/23 08:32 Pantoprazole Sodium Iv 40 Mg Vial IV PUSH Not Given [facility] Radiology Results: ITS Impressions Chest X-Ray 12/19/23 19:39 IMPRESSION: No focal infiltrate or effusion. Neck/Chest CT 12/19/23 21:02 IMPRESSION: 1. No definite abnormality seen. CT soft tissue neck chest w Ordering provider: Maya Lundberg PA-C History: 78 years Male with . leukocytosis, tachycardia, productive cough . Comparison: None. Technique: CT chest with IV contrast. Findings: VISUALIZED THORACIC INLET: Nodule in the right lower thyroid. MEDIASTINUM: Aorta/coronary arteries: Mild atheromatous disease. Heart/other: The heart is not enlarged. Lymph nodes: No mediastinal or hilar adenopathy. Calcified right hilar lymph nodes. LUNGS: Thickening of the interstitial tissues seen in the right upper lobe with minimal infiltrate which may indicate early pneumonia but fibrotic changes are possible. Dependent atelectatic changes in the lower lobes. No pulmonary nodules or masses. No effusions. No pneumothorax. Calcification seen adjacent to the right transverse fissure. VISUALIZED UPPER ABDOMEN: Status post cholecystectomy. Atrophic pancreas. Otherwise, the visualized upper abdomen is normal. MUSCULOSKELETAL: Soft tissues: The superficial soft tissues are normal. Bones: Age appropriate degenerative changes of the spine. IMPRESSION: Interstitial thickening in the right upper lobe with minimal infiltrate. Pneu monitis versus fibrotic changes are not excluded. Follow-up advised. Head CT 12/22/23 13:43 IMPRESSION: 1. Normal aging brain. 2. Type II odontoid fracture with screw fixation. Chest/Abdomen/Pelvis CTA 12/22/23 13:52 IMPRESSION: 1. Mckeon balloon in abnormal position in the prosthetic urethra. Small volume of hematoma in the bladder. Labs Labs: Laboratory Results - last 24 hr 12/19/23 12/24/23 12/24/23 19:20 17:53 20:46 WBC RBC Hgb Hct MCV MCH MCHC RDW Plt Count MPV Immature Gran % (Auto) Neut % (Auto) Lymph % (Auto) [place] % (Auto) Eos % (Auto) Baso % (Auto) Lymph # (Auto) [place] # (Auto) Eos # (Auto) Baso # (Auto) Abs Immat Gran (auto) Absolute Neuts (auto) Absolute Nucleated RBC Nucleated RBC % Sodium Potassium Chloride Carbon Dioxide Anion Gap BUN Creatinine Estim Creat Clear Calc Estimated GFR Glucose POC Capillary Glucose 327 H 328 H Calcium Magnesium Total Bilirubin AST ALT Alkaline Phosphatase Total Protein Albumin Urine Pneumococcal Ag Not detected 12/25/23 12/25/23 12/25/23 00:23 05:44 06:47 WBC 11.5 H RBC 3.83 L Hgb 10.9 L Hct 35.4 L MCV 92.4 MCH 28.5 MCHC 30.8 L RDW 16.2 H Plt Count 197 MPV 10.7 H Immature Gran % (Auto) 0.8 H Neut % (Auto) 75.4 H Lymph % (Auto) 12.1 L [place] % (Auto) 8.7 H Eos % (Auto) 2.6 Baso % (Auto) 0.4 Lymph # (Auto) 1.39 [place] # (Auto) 1.0 H Eos # (Auto) 0.3 Baso # (Auto) 0.1 Abs Immat Gran (auto) 0.09 H Absolute Neuts (auto) 8.7 H Absolute Nucleated RBC 0.000 Nucleated RBC % 0.0 Sodium 146 H Potassium 3.8 Chloride 110 H Carbon Dioxide 27 Anion Gap 9 BUN 30 H Creatinine 0.70 Estim Creat Clear Calc 75 Estimated GFR > 60 Glucose 350 H POC Capillary Glucose 273 H 330 H Calcium 9.0 Magnesium 2.1 Total Bilirubin 0.5 AST 62 H ALT 58 H Alkaline Phosphatase 97 Total Protein 7.0 Albumin 3.3 L Urine Pneumococcal Ag 12/25/23 12/25/23 07:46 11:34 WBC RBC Hgb Hct MCV MCH MCHC RDW Plt Count MPV Immature Gran % (Auto) Neut % (Auto) Lymph % (Auto) [place] % (Auto) Eos % (Auto) Baso % (Auto) Lymph # (Auto) [place] # (Auto) Eos # (Auto) Baso # (Auto) Abs Immat Gran (auto) Absolute Neuts (auto) Absolute Nucleated RBC Nucleated RBC % Sodium Potassium Chloride Carbon Dioxide Anion Gap BUN Creatinine Estim Creat Clear Calc Estimated GFR Glucose POC Capillary Glucose 335 H 357 H Calcium Magnesium Total Bilirubin AST ALT Alkaline Phosphatase Total Protein Albumin Urine Pneumococcal Ag Quality VTE Prophylaxis VTE prophylaxis: mechanical ordered Hospitalist MIPS Advance Care Plan I have confirmed that the patient's Advanced Care Plan is present, code status is documented, or surrogate decision maker is listed in patient medical record.: Yes Medication Reconciliation I have utilized all available resources to obtain, update and review the patients current medications (includes all prescriptions, OTC, herbals, cannabis, and nutritional supplements).: Yes
[2023-12-25 16:56] LABS: Glucose Point of Care 334 mg/dl (65-105)
[2023-12-25 19:08] LABS: Mycoplasma IgM Antibody Titer 101 U/mL
[2023-12-25 21:44] LABS: Legionella pneumophila Ag Ur NOT DETECTED
[2023-12-25] MEDS: ATORVASTATIN 40 MG TABLET FEED TUBE (21:47)
[2023-12-25] MEDS: INSULIN GLARGINE (*BKC) 100 UNITS/ML 12 UNITS SUB-Q (21:47)
[2023-12-25] MEDS: MELATONIN 3 MG TABLET 6 MG FEED TUBE (21:48)
[2023-12-25 23:18] LABS: Glucose Point of Care 404 mg/dl (65-105)
[2023-12-26] VITALS (7 sets, daily range): BP systolic 124–139; BP diastolic 58–88; PULSE 77–94; RESP 16–18; TEMP 36.4–36.8; O2SAT 96–98
[2023-12-26] MEDS: INSULIN HUMAN REGULAR (*BKC) 100 UNITS/ML 6 UNITS SUB-Q
[2023-12-26 06:01] LABS: Glucose Point of Care 404 mg/dl (65-105)
[2023-12-26] MEDS: INSULIN ASPART (*BKC) 100 UNITS/ML SUB-Q ×6 (07:08→18:15)
[2023-12-26 07:27] LABS: Hemoglobin A1C 8.1 % (<5.7)
[2023-12-26 07:31] LABS: Anion Gap 10 mmol/L (4-12); Blood Urea Nitrogen 30 mg/dL (9-20); Calcium 9.4 mg/dL (8.4-10.2); Carbon Dioxide 31 mmol/L (22-30); Chloride 107 mmol/L (98-107); Estimated CRCL calculation 75 ml/min; Estimated Glomerular Filt Rate > 60; Glucose 426 mg/dL (65-110); Potassium 4.1 mmol/L (3.4-5.0); Sodium 148 mmol/L (137-145)
[2023-12-26 08:49] LABS: Basophils Percent Auto 0.4 % (0.2-1.2); Eosinophils Absolute Auto 0.3 K/mm3 (0-0.3); Eosinophils Percent Auto 2.7 % (0-4.4); Hematocrit 38.7 % (42.0-52.0); Hemoglobin 11.8 g/dL (14.0-18.0); Immature Granulocyte Absolute 0.14 K/mm3 (0.00-0.031); Immature Granulocyte Percent A 1.3 % (0-0.5); Lymphocytes Absolute Auto 1.23 K/mm3 (0.9-3.2); Lymphocytes Percent Auto 11.6 % (18.3-44.2); Mean Corpuscular HGB Conc 30.5 g/dl (32-36); Mean Corpuscular Hemoglobin 28.5 pg (26-34); Mean Corpuscular Volume 93.5 fl (80-100); Mean Platelet Volume 10.7 fl (7.4-10.4); Monocytes Percent Auto 9.5 % (2.6-8.5); Neutrophils Absolute Auto 7.9 K/mm3 (1.3-6.7); Neutrophils Percent Auto 74.5 % (45.5-73.1); Platelet Count Result 225 k/mm3 (150-375); Red Blood Count 4.14 M/mm3 (4.6-6.20); Red Cell Distribution Width 15.9 % (11.5-14.5); White Blood Count 10.6 K/mm3 (4.5-10.0)
--- NOTE | 2023-12-26 09:44 | PCNFU ---
Nutrition Follow-Up Complete: Inadequate energy intake related to NPO status with no orders for tube feedings at this time as evidenced by diet orders. *Spoke with nursing and hospitalist - ok to order tube feeds and start feeding per rec Meet estimated needs via tube feedin- Meeting goal. Increasing water flushes d/t labs Goal: Pt current nutrition is Tube feeding: Glucerna 1.2 @ goal 75 ml/h: 1980 kcal, 99 g protein, 1328 ml free water. Flush 100 ml q 4 hours. Total water 1928 ml/d. Nutrition recommendation: Increase water flushes to 150 ml q 4 hours for total water 2228 ml/day Last recorded weight is 78.8 kg. Bowel Motility: +3 BMs 12/26/23 Labs Reviewed: Hgb 11.8, Hct 38.7, Na 148, BUN 30, Glu 426 Meds Noted: Novolog, Zofran Skin: No pressure injuries Additional Notes: Due to labs, increasing water to 150 ml q 4 hours and monitor. Discussed with provider, Margarita. Tolerating well. Monitor tube feeding, tolerance, wt, labs. Follow up every Friday and Friday.
[2023-12-26] MEDS: ASPIRIN 81 MG CHEWABLE TABLET FEED TUBE (09:55)
[2023-12-26] MEDS: AMOXICILLIN/CLAVULANATE K 875-125 MG TAB 1 TABLET FEED TUBE ×2 (09:55→21:38)
[2023-12-26] MEDS: FOLIC ACID 1 MG TABLET FEED TUBE (09:55)
[2023-12-26] MEDS: AZITHROMYCIN 250 MG TABLET 500 MG FEED TUBE (09:55)
[2023-12-26] MEDS: METOPROLOL TARTRATE 12.5 MG TABLET PO (09:56)
[2023-12-26 11:54] LABS: Glucose Point of Care 342 mg/dl (65-105)
[2023-12-26] MEDS: LANSOPRAZOLE ODT 30 MG TAB.RAP.DR PO (12:07)
[2023-12-26] MEDS: ACETAMINOPHEN 325 MG TABLET 650 MG FEED TUBE (12:18)
--- NOTE | 2023-12-26 15:13 | P.DS_ITS ---
DS: Admitting Diagnosis Discharge Date 12/26/23 Admitting Diagnosis Aspiration Pneumonia DS: Discharge Diagnosis Discharge Diagnosis (1) Sepsis: Code(s): A41.9 - Sepsis, unspecified organism Status: Acute Assessment and Plan: On admission, patient met criteria for sepsis: Tachycardia, and suspected infection/pneumonia. Started on empiric Zosyn, Flagyl, Vanc, narrowed to Zosyn. Lactic acid normalized. White count improving 17.8>15.8>13>11. IMAGING 12/21 CT head no acute findings 1. Normal aging brain. 2. Type II odontoid fracture with screw fixation. CTA C/A/P showing a dislodged mckeon with balloon inflated in urethra and small hematoma in bladder, bladder wall thickening. No PE or enlarging PNA/effusion. PLAN * Sputum culture appeared contaminated. * Zosyn discontinued. * Scheduled to be discharged on Augmentin and Azithromycin. * Blood cultures NGTD. Code status DNR with no Intubation or CPR. (2) Dislodged Mckeon catheter: Code(s): T83.021A - Displacement of indwelling urethral catheter, initial encounter Status: Acute Assessment and Plan: 12/22/23: * As noted per CT scan with residual bladder hematoma. * Mckeon was replaced without difficulty per nurse and it is secured to his leg. * No blood clots in urine. * If decrease of UOP or if any blood clots, consider Urology consult and pt may need CBI. * PRN Pain meds. 12/23/23: * Monitor I and O * DC mckeon catheter, monitor for retention as needed * 12/26/23: - Mckeon catheter discontinued. (3) Aspiration pneumonia: Qualifiers: Aspiration pneumonia type: unspecified Laterality: right Lung location: upper lobe of lung Qualified Code(s): J69.0 - Pneumonitis due to inhalation of food and vomit Code(s): J69.0 - Pneumonitis due to inhalation of food and vomit Status: Acute Assessment and Plan: Blood and urine cultures negative. To complete abx treatment with Augmentin and Zosyn at the [facility]. (4) Confusion: Code(s): R41.0 - Disorientation, unspecified Status: Acute Assessment and Plan: - Appears to be baseline possibly related to dementia vs delirium from long hospitalization vs Parkinson's vs other infection. - CT head negative for acute. Vitamin B12, Vitamin D, RPR, TSH, ammonia all wnl. - Family reported an MRI and [facility] puncture at [facility] recently revealed no etiology for delirium - Treated elevated sodium/dehydration, and hyperglycemia as noted - Continued on neuro checks q shift inpatient. (5) Hypovolemia: Code(s): E86.1 - Hypovolemia Status: Acute Assessment and Plan: Likely secondary to poor intake Tube feeds and free water flushes. (6) Adult failure to thrive: Code(s): R62.7 - Adult failure to thrive Status: Acute Assessment and Plan: Dysphagia post op complicated by aspiration pneumonia --Seen by payroll auditor. --TF inpatient with free water flushes --Strict I&O --Titrating insulin with bolus feeds (7) Hypokalemia: Code(s): E87.6 - Hypokalemia Status: Acute Assessment and Plan: Repleted and wnl prior to discharge. (8) Acute hypernatremia: Code(s): E87.0 - Hyperosmolality and hypernatremia Status: Acute Assessment and Plan: - Sodium up to 152 12/22. Improved with IV fluids and free water flushes. -- 148 on discharge. --Continue increased free water flushes. (9) Lactic acidosis: Code(s): E87.20 - Acidosis, unspecified Status: Resolved Assessment and Plan: RESOLVED Likely secondary to dehydration and/vs infection. 12/22/23: Lactic acid 1.4. Plan Patient to be disharged today. DS: Summary Hospital Course Reason for hospitalization: Altered Mental Status. Hospital Course: Patient was admitted to the hospital for for altered mental status. He was noted with intermittent cough episodes and suspected to be secondary to aspiration PNA. He had a CT head done that was negative for acute, and patient has been treated with IV abx and will be discharged on oral abx to complete abx treatmen t. He also had an episode of dislodged mckeon-catheter, with an abdominal CT showing small residual hematoma in the bladder. The mckeon was replaced without difficulty and discontinued prior to his discharge. Patient was also dehydrated and this was corrected by IVF hydration and free water through his PEG-Tube. Patient currently stable for discharge with no acute distress noted or reported prior to discharge. All his other chronic conditions remained stable. Status at Discharge Cognitive/behavioral status at discharge: Confused Functional status at discharge: bed bound Overall status at discharge: patient is progressing back to baseline Time Spent with Patient Time attestation: Total time spent providing and/or coordinating discharge services: Exam Narrative: General: In no acute distress, confused on bedrest. Cardiac: Normal S1 and S2. No murmur, gallops or friction rubs, peripheral pulses intact. Respiratory: Lungs clear to auscultation. Gastrointestinal: soft, non-distended, non-tender, normoactive bowel sounds. G tube with tube feeding infusing : voiding Neuro: Alert, confused, unable to assess orientation as he is non-verbal. HEENT: PERRLA, EOMI, Musculoskeletal: moves all extremities spontaneously Psych: Unable to truly assess due to altered mental status Const: General: comfortable and no acute distress DS: Data Data Completed and Pending Labs on day of discharge: Labs from last 24 hours 12/26/23 12/26/23 12/26/23 11:47 06:54 05:58 WBC 10.6 H RBC 4.14 L Hgb 11.8 L Hct 38.7 L MCV 93.5 MCH 28.5 MCHC 30.5 L RDW 15.9 H Plt Count 225 MPV 10.7 H Immature Gran % (Auto) 1.3 H Neut % (Auto) 74.5 H Lymph % (Auto) 11.6 L [place] % (Auto) 9.5 H Eos % (Auto) 2.7 Baso % (Auto) 0.4 Lymph # (Auto) 1.23 [place] # (Auto) 1.0 H Eos # (Auto) 0.3 Baso # (Auto) 0.0 Abs Immat Gran (auto) 0.14 H Absolute Neuts (auto) 7.9 H Absolute Nucleated RBC 0.000 Nucleated RBC % 0.0 Sodium 148 H Potassium 4.1 Chloride 107 Carbon Dioxide 31 H Anion Gap 10 BUN 30 H Creatinine 0.70 Estim Creat Clear Calc 75 Estimated GFR > 60 Glucose 426 H POC Capillary Glucose 342 H 404 H Hemoglobin A1c 8.1 H Calcium 9.4 Ur L.pneumophila Ag Mycoplasma pneumon IgM 12/25/23 12/25/23 12/20/23 23:11 16:52 01:01 WBC RBC Hgb Hct MCV MCH MCHC RDW Plt Count MPV Immature Gran % (Auto) Neut % (Auto) Lymph % (Auto) [place] % (Auto) Eos % (Auto) Baso % (Auto) Lymph # (Auto) [place] # (Auto) Eos # (Auto) Baso # (Auto) Abs Immat Gran (auto) Absolute Neuts (auto) Absolute Nucleated RBC Nucleated RBC % Sodium Potassium Chloride Carbon Dioxide Anion Gap BUN Creatinine Estim Creat Clear Calc Estimated GFR Glucose POC Capillary Glucose 404 H 334 H Hemoglobin A1c Calcium Ur L.pneumophila Ag Mycoplasma pneumon IgM 101 12/19/23 19:20 WBC RBC Hgb Hct MCV MCH MCHC RDW Plt Count MPV Immature Gran % (Auto) Neut % (Auto) Lymph % (Auto) [place] % (Auto) Eos % (Auto) Baso % (Auto) Lymph # (Auto) [place] # (Auto) Eos # (Auto) Baso # (Auto) Abs Immat Gran (auto) Absolute Neuts (auto) Absolute Nucleated RBC Nucleated RBC % Sodium Potassium Chloride Carbon Dioxide Anion Gap BUN Creatinine Estim Creat Clear Calc Estimated GFR Glucose POC Capillary Glucose Hemoglobin A1c Calcium Ur L.pneumophila Ag Not detected Mycoplasma pneumon IgM Preliminary micro results at discharge 12/22/23 13:00 Blood Culture - Preliminary Blood 12/22/23 12:52 Blood Culture - Preliminary Blood Discharge Plan Discharge Attending physician on discharge: Kirk Valles Consulting providers: Ksenia Sands Discharging Clinician: Margarita Caldera Anticipated Discharge Date/Time: 12/26/23 15:43 Patient Disposition: SNF Activity: as tolerated Diet: tube feeding Patient Instructions: Pain Management in Older Adults (DC) Stand Alone Forms: General Discharge Information Follow-up/Referrals: Cipriano Del Cid APRN [Primary Care Provider] - Discharge Medications: New azithromycin [Zithromax] 250 mg Tablet 500 mg feeding tube DAILY Qty: 3 0RF amoxicillin-pot clavulanate [Augmentin] 500-125 mg tablet 1 tablet PO Q12H Qty: 8 0RF Continued ipratropium-albuterol 0.5 mg-3 mg(2.5 mg base)/3 mL Solution For Nebulization 3 ml INHALATION Q6H PRN (Reason: Shortness Of Breath Or Wheezing) acetaminophen 160 mg/5 ml 31.25 ml feeding tube TID lansoprazole 30 mg 30 mg AC melatonin 6 mg 6 mg HS Miralax 17 g 17 g BID aspirin 81 mg tablet,delayed release (DR/EC) 81 mg PO DAILY folic acid 1 mg tablet See Rx Instructions .ROUTE .COMPLEX Qty: 90 2RF Dose Instruction: TAKE 1 TABLET BY MOUTH EVERY DAY Rx Instructions: TAKE 1 TABLET BY MOUTH EVERY DAY atorvastatin 40 mg tablet 40 mg PO QHS Qty: 90 1RF Discontinued Zofran 4 mg 4 mg Q6H PRN (Reason: Nausea And Vomiting) Date of admission: 12/20/23 17:24 Primary Care Provider: Cipriano Del Cid Admitting Provider: Julissa Villegas Attending physician on admission: Scarlet Tee Condition: Serious Quality VTE Prophylaxis VTE prophylaxis: mechanical ordered
[2023-12-26 18:14] LABS: Glucose Point of Care 344 mg/dl (65-105)
[2023-12-26] MEDS: INSULIN GLARGINE (*BKC) 100 UNITS/ML 12 UNITS SUB-Q (21:38)
[2023-12-26] MEDS: ATORVASTATIN 40 MG TABLET FEED TUBE (21:38)
[2023-12-26] MEDS: MELATONIN 3 MG TABLET 6 MG FEED TUBE (21:38)
[2023-12-26 21:44] LABS: Glucose Point of Care 270 mg/dl (65-105)
== END 2023-12-26 22:08 | DRG 871 ==
LOC: ANHED 19:05 → ANH3MEDSUR 23:13
PROVIDERS: Internal Medicine; Nurse Practitioner Acute Care; Nurse Practitioner Adult Health; Admitting Provider General Practice; Emergency Provider Physician Assistant; PCP Nurse Practitioner Family; Visit Provider Nurse Practitioner Adult Health
DX: A41.9 Sepsis, unspecified organism (principal); J18.9 Pneumonia, unspecified organism; J69.0 Pneumonitis due to inhalation of food and vomit; G93.40 Encephalopathy, unspecified; E87.20 Acidosis, unspecified; E87.0 Hyperosmolality and hypernatremia; E87.6 Hypokalemia; E86.1 Hypovolemia; J45.909 Unspecified asthma, uncomplicated; D86.9 Sarcoidosis, unspecified; T83.021A Displacement of indwelling urethral catheter, initial encounter; R62.7 Adult failure to thrive; Z20.822 Contact with and (suspected) exposure to COVID-19; S12.110D Anterior displaced Type II dens fracture, subsequent encounter for fracture with routine healing; Z79.02 Long term (current) use of antithrombotics/antiplatelets; Z79.82 Long term (current) use of aspirin; Z79.4 Long term (current) use of insulin; Z98.1 Arthrodesis status; Z95.5 Presence of coronary angioplasty implant and graft; Z87.891 Personal history of nicotine dependence; Z93.1 Gastrostomy status
CPT/HCPCS: 36415; 70450; 70491; 71045; 71260; 71275; 74174; 80048; 80053; 81001; 82140; 82607; 82948; 83036; 83605; 83735; 83880; 84100; 84145; 84443; 85025; 85027; 85610; 85730; 86140; 86592; 86738; 87040; 87070; 87086; 87205; 87449; 87493; 87636; 87637; 87641; 87899; 93005; 94667; 96361; 96365; 97110; 97162; 97166; 97530; 99285; A9270; G0378; J1815; J1836; J2060; J2270; J2470; J2543; J3370; J3480; J7030; J7040; J7120; Q9967

== ENCOUNTER 2024-05-12 12:20 | Outpatient (CLI) | payer MEDICARE, OTHER, SELFPAY ==
--- NOTE | ~2024-05-12 | XR_ITS ---
Left Shoulder Technique: AP and scapular Y views were obtained. Clinical History: Pain Findings: No fracture or dislocation is seen. Osseous alignment is anatomic. The glenohumeral and acr omioclavicular joint spaces are preserved. Soft tissues are unremarkable. Impression: Unremarkable left shoulder radiographs. Reviewed, dictated and finalized at [facility]. Impression: Unremarkable left shoulder radiographs.
--- NOTE | ~2024-05-12 | DEXA_ITS ---
Bone Density Report Name: AUSTIN JARAMILLO Age: 78 Sex: Male Ethnicity: White Date of : 1945 Indication: screening for osteoporosis; prior fracture; asthma or emphysema; Referring Provider: KATARZYNA CASTLE Study: Bone densitometry was performed. Exam Date: May 12, 2024 Accession number: [id number] Bone Density: Region BMD T-score Z-score Classification Femoral Neck (Left) 1.084 1.1 2.6 Normal Total Hip (Left) 1.297 1.8 2.7 Normal Femoral Neck (Right) 0.980 0.4 1.8 Normal Total Hip (Right) 1.246 1.4 2.4 Normal Femoral Neck Mean 1.032 0.8 2.2 Normal Total Hip Mean 1.272 1.6 2.6 Normal World Health Organization criteria for BMD impression classify patients as: Normal (T-score at or above -1.0), Osteopenia (T-score between -1.0 and -2.5), or Osteoporosis (T-score at or below -2.5). 10-year Fracture Risk: FRAX not reported because: All T-scores for Spine Total, Hip Total, Femoral Neck at or above -1.0 Prior hip or vertebral fracture Previous Exams: Region Exam Age BMD T-score BMD Change BMD Change Date g/cm2 vs Baseline vs Previous Total Hip(Right) 05/12/2024 78 1.246 1.4 0.045 (3.7%)# 0.045 (3.7%)# 05/12/2024 78 1.201 1.1 *Denotes significance at 95% confidence level, LSC for Total Hip = 0.027 g/cm2 # Denotes dissimilar scan types or analysis methods Clinical Information Provided by Patient: Have had a previous hip or vertebral fracture Has had a low trauma fracture Has the following medical conditions: Asthma or Emphysema Patient maximum height was 66 No regular weight bearing exercise Does not regularly consume dairy products Drinks caffeinated beverages Impression: The patient has normal bone mass. The patient has risk factors, including: previous fracture. No significant bone loss was observed. Discussion: INCREASED RISK OF FRACTURE DUE TO HISTORY OF LOW TRAUMA FRACTURE. The patient's previous fracture puts the patient at high risk of a future fracture. In untreated patients, the risk of osteoporotic fracture increases approximately two-fold for each 1.0 SD decrease in T-score. Low bone density is not the only risk factor for fracture; also consider factors such as patient's age, frailty or poor health, risk of falling, risk of injury, previous osteoporotic fracture, family history of osteoporosis, cigarette smoking, low body weight, etc. Not everyone with a low trauma fracture has osteoporosis; osteomalacia and other metabolic bone disorders should also be considered. Patients who have osteoporosis should be evaluated for specific diseases and conditions (secondary causes) that may cause or contribute to bone loss and fracture risk. National Osteoporosis Foundation (NOF) recommends pharmacologic intervention for patients with a prior low trauma hip or vertebral fracture regardless of BMD T-score. The patient should follow a healthful lifestyle (good nutrition with adequate calcium and vitamin D, and appropriate weight-bearing exercise). Follow-Up: Consider a repeat BMD and Vertebral Fracture Assessment (VFA) exam in 2 years or sooner if medically necessary, to reassess this patient's status. Reported by: GABE on 05/12/2024 1:17:00 PM. Reviewed, dictated and finalized at location A.
--- OUTSIDE RECORDS SUMMARY | 2024-05-12 13:47 | XMS_ITS | Clinical Summary ---
Author Organization [facility] Medical Office Building B Address [address] [place] [address] Care Team Providers Care Teacher Instrumental Name Role Phone Stuart Howe DO Primary Care Provider July Maradiaga MD Unavailable [phone] Bandar Up DPT Unavailable [phone] Esther Garcia PT Unavailable [phone] Allergies No known active allergies Medications aspirin 81 mg enteric coated tablet Take 1 tablet (81 mg total) by mouth daily with breakfast Active albuterol HFA (PROVENTIL HFA,VENTOLIN HFA,PROAIR HFA) 90 mcg/actuation inhaler Inhale 2 puffs every 6 (six) hours as needed for wheezing or shortness of breath 022 Active folic acid (FOLVITE) 1 mg tablet Take 1 tablet (1,000 mcg total) by mouth every morning 022 Active acetaminophen (TYLENOL) 500 mg tablet Take 2 tablets (1,000 mg total) by mouth every 6 (six) hours 60 tablet 1 023 Active atorvastatin (LIPITOR) 20 mg tablet Take 2 tablets (40 mg total) by mouth nightly Active insulin lispro (HumaLOG, ADMELOG) 100 unit/mL pen for injection 12 - 15 units with meal 5 units for snacks plus 1 for every 40 > 150 - TDD 70 units 30 mL 11 023 Active insulin glargine 100 unit/mL (3 mL) pen for injectionIndi cations:Stero id-induced hyperglycemia ,Type 2 diabetes mellitus with hyperglycemia , with long-term current use of insulin (HCC) Inject 24 Units under the skin daily 15 mL 3 024 Active Additional Information Patient taking differently: 15 Unitssubcutaneous Daily, Reported on 05/03/2024 NovoLOG 100 unit/mL (3 mL) pen for injection INJECT 5 - 15 UNITS UNDER THE SKIN 4 TO 6X DAILY MEALTIME & CORRECTION BOLUS (MAX 90 UNITS/DAY) 15 mL 1 Active Additional Information Patient not taking.Reported on 05/03/2024 metoprolol tartrate (LOPRESSOR) 25 mg immediate release tablet Take 0.5 tablets (12.5 mg total) by mouth 2 (two) times a day Active ipratropium-a lbuteroL (DUO-NEB) 0.5-2.5 mg/3 mL nebulizer solution Inhale 3 mL every 6 (six) hours as needed Active lansoprazole (PREVACID) 30 mg capsule Administer per tube 1 capsule (30 mg total) daily before breakfast Active rOPINIRole (REQUIP) 1 mg tablet Take 1 tablet (1 mg total) by mouth 3 (three) times a day Activ e traZODone (DESYREL) 50 mg tablet Take 1 tablet (50 mg total) by mouth nightly Active doxazosin (CARDURA) 1 mg tablet TAKE 1 TABLET BY MOUTH DAILY FOR 3 MONTHS 025 Active pen needle, diabetic 32 gauge x 5/32 needleIndicat ions:Type 2 diabetes mellitus with hyperglycemia , without long-term current use of insulin (HCC) Use as directed with basal, bolus, and correction insulin 5 to 6 times a day. 500 each 3 025 Active multivitamin tablet tablet take 1 by Oral route once 0 0 014 2024 Discontinued(T herapy completed) doxazosin (CARDURA) 8 mg tablet take 1 tablet by oral route 2 times every day 0 0 014 2024 Discontinued nitroglycerin (NITROSTAT) 0.[address] 1 tablet by sublingual route at the 1st sign of attack; may repeat every 5 min until relief; if pain persists after 3 tablets in 15 min, prompt medical attention is recommended 0 0 04/04/25 014 2024 Discontinued(T herapy completed) clobetasol (TEMOVATE) 0.05 % cream apply by topical route 2 times every day a thin layer to the affected area(s) 0 0 016 2024 Discontinued(A lternate therapy) kseh-gob-twi- lfm-wasb-cbgr -pec (Fiber 6) 1,000 mg tablet Take 1 tablet by mouth every morning 2024 Discontinued(A lternate therapy) finasteride (PROSCAR) 5 mg tablet Take 1 tablet (5 mg total) by mouth nightly 2024 Discontinued(T herapy completed) fluticasone propionate (FLOVENT DISKUS) 50 mcg/actuation diskus inhaler Inhale 1 puff 2 (two) times a day as needed Rinse mouth with water after use. Do not swallow. 2024 Discontinued(T herapy completed) pen needle, diabetic 32 gauge x 5/32 needleIndicat ions:Steroid- induced hyperglycemia ,Type 2 diabetes mellitus with hyperglycemia , with long-term current use of insulin (HCC) Use as directed with basal, bolus, and correction insulin 5 to 6 times a day. 500 each 3 023 2024 Discontinued(D uplicate order) azelastine (ASTELIN) 137 mcg (0.1 %) nasal spray Administer 1 spray into affected nostril(s) 023 2024 Discontinued(T herapy completed) flurbiprofen (OCUFEN) 0.03 % ophthalmic solution 1 DROP 3X PER DAY INTO SURGICAL EYE, STARTING AFTER SURGERY, CONTINUE FOR 3 WEEKS 024 2024 Discontinued(A lternate therapy) ibuprofen (ADVIL,MOTRIN ) 400 mg tablet Take 1 tablet (400 mg total) by mouth every 6 (six) hours as needed 024 2024 Discontinued(A lternate therapy) midodrine (PROAMATINE) 5 mg tablet TAKE 1 TABLET BY MOUTH 3 TIMES A DAY DO NOT TAKE LAST DOSE AFTER 6PM OR WITHIN 4 HRS OF BEDTIME 2024 Discontinued(T herapy completed) LORazepam (ATIVAN) 0.5 mg tablet Take 1 tablet (0.5 mg total) by mouth every 6 (six) hours as needed for anxiety 2024 Discontinued(T herapy completed) melatonin 3 mg tablet,disint egrating Take by mouth 2024 Discontinued(A lternate therapy) pen needle, diabetic 32 gauge x 32 needleIndicat ions:Type 2 diabetes mellitus with hyperglycemia , without long-term current use of insulin (HCC) Use as directed with basal, bolus, and correction insulin 5 to 6 times a day. 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 Overview (04/18/2022): Coronary arteriosclerosis in ramona artery Type 2 diabetes mellitus wit h hyperglycemia, with long-term current use of insulin On methylprednisolone therapy IgA deficiency IgM deficiency Persistent 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 complication Encounters Date Type Department Care Team Description 05/10/2024 Orders Only [facility] Endocrinology Metabolism and Lipid [address] [facility] [address] [place] [address] [place] [address] Jazzy Alvarado, NIKKY Type 2 diabetes mellitus with hyperglycemia, without long-term current use of insulin (HCC) 05/03/2024 11:00 AM CDT Office Visit [facility] Endocrinology Metabolism and Lipid [address] [facility] [address] [place] [address] [place] [address] Gladys Box MD Type 2 diabetes mellitus with hyperglycemia, without long-term current use of insulin (HCC) (Primary Dx); Steroid-induced hyperglycemia; Type 2 diabetes mellitus with hyperglycemia, with long-term current use of insulin (HCC) 02/19/2024 2:30 PM ANESTHETIST Office Visit [facility] Neuro Muscle [address] [facility] 6[address] [place] [address] [place] [address] Wellington Alva MD PhD Mononeuropathy multiplex syndrome (Primary Dx); Spinal stenosis of lumbar region, unspecified whether neurogenic claudication present from Last 3 Months Immunizations Immunization Administration Dates Next Due Pneumococcal Polysaccharide PPV23 06/18/2022 Surgical History Surgery Date Site/Laterality Comments BACK SURGERY x6 NECK SURGERY HERNIA REPAIR 02/24/1970 - 02/23/1971 CARDIAC STENT PLACEMENT 02/24/2019 - 02/24/2020 x3 SINUS SURGERY x3 CHOLECYSTECTOMY 02/24/1985 - 02/23/1986 HAND SURGERY Bilateral unknown dates LUMBAR FUSION 02/24/2014 - 02/23/2015 3-5 MICRODISCECTOMY 02/24/2015 - 02/24/2016 L2-4 VASECTOMY 04/08/1977 Medical History Medical History Date Comments Hypertension Hypertension Hx Other Medical Diabetes Type I I Myocardial infarction (HCC) Hypercholesteremia Diabetes mellitus (HCC) Gastric reflux Kidney stone Obstructive sleep apnea Does not tolerate CPAP Asthma GERD (gastroesophageal reflux disease) Type 2 diabetes mellitus (HCC) 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 Hypertriglyceridemia Left-sided sensorineural hearing loss Arthritis Family History Medical History Relation Name Comments Arthritis Brother HIV Brother Arthritis Father Diabetes Father Heart attack Father Myocardial Infa rction; Heart disease Father Arthritis Mother Diabetes Mother Heart attack Mother Myocardial Infa rction; Cause of : Myocardial Infarction Heart disease Mother Arthritis Other Diabetes Other Heart disease Other Arthritis Sister 1 Hypertension Sister 1 Hypertension Sister 2 Hypertension; Arthritis Son Anesthesia problems Neg Hx Relation Name Status Comments Brother Father Alive Mother Other Sister 1 Alive Sister 2 Son Social History Tobacco Use Types Packs/Day Years Used Date Smoking Tobacco: Former Cigarettes Q uit: 02/25/1964 Smokeless Tobacco: Never Tobacco Cessation:Counseling Given: Not Answered Alcohol Use Standard Drinks/Week Comments No 0 (1 standard drink = 0.6 oz pur e alcohol) AUDIT-C Answer Date Recorded Q1: How often do you have a drink containing alcohol? Never 06/18/2022 Q2: How many drinks containi ng alcohol do you have on a typical day when you are drinking? Patient does not drink Q3: How often do you have si x or more drinks on one occasion? Never 06/18/2022 PHQ-2 Answer Date Recorded PHQ-2 Total Score (If total score is 3 or more points, staff should administer the PHQ-9) 0 04/15/2022 Hunger Vital Sign Answer Date Recorded Within the past 12 months, y ou worried that your food would run out before you got the money to buy more. Never true 11/05/19 23 Within the past 12 months, t he food you bought just didn't last and you didn't have money to get more. Never true 11/04/2022 Personal Safety Answer Date Recorded Have you ever been in or are you currently in a harmful physical or emotional relationship or is someone making you feel afraid or unsafe? Denies 2022 Sex and Gender Information Value Date Recorded Sex Assigned at Not on file Legal Sex Male 6:01 PM ANESTHETIST Gender Identity Male 05/07/2021 12:04 AM CDT Sexual Orientation Straight 06/25/2022 9: 20 AM CDT Obstetrics History Last Filed Vital Signs Vital Sign Reading Time Taken Comments Blood Pressure 153/76 05/03/2024 10:44 AM CDT Pulse 69 05/03/2024 10:44 AM CDT Temperature 36.6 C (97.9 F) 05/03/2024 10:44 AM CDT Respiratory Rate 16 2022 9:58 AM CDT Oxygen Saturation 99% 08/25/2023 10:19 AM CDT Inhaled Oxygen Concentration - - Weight 81.6 kg (180 lb) 05/03/2024 10:44 AM CDT Height 172.7 cm (5' 8 ) 05/03/2024 10:44 AM CDT Body Mass Index 27.37 05/03/2024 10:44 AM CDT Plan of Treatment Health Maintenance Due Date Last Done Comments Hepatitis C Screening 1945 Dilated Eye Exam 1945 Foot Exam 1945 DTaP/Tdap/Td Vaccine (1 - Tdap) 1956 Hepatitis B Screening 12/03/1963 Zoster Vaccine (1 of 2) 1964 Well Visit 65+ 2010 Depression Screening 04/09/2023 04/09/2022 Fall Risk Assessment 04/18/2023 04/18/2022 Pneumococcal vaccine 65+ (2 of 2 - PCV) 06/19/2023 06/18/2022 Covid-19 Vaccine (4 - 2023-2 5 season) 2023 12/21/2020, 05/05/2020, 04/14/2020 Influenza Vaccine (#1) 2023 9, 10/20/2017, 11/24/2014, Additional history exists Albumin Creatinine Ratio, Urine 04/27/2024 Lipid Panel 04/27/2024 04/28/2023, 03/28, 03/31/2013 eGFR 04/27/2024 04/28/2023, 05/25, 04/17/2022, Additional history exists Hemoglobin A1C 11/03/2024 05/03/2024, 10/25, 11/03/2023, Additional history exists Abdominal Aortic Aneurysm (A AA) Screen Completed 11/04/2023 Medical Devices Implanted Type Area Global Supply Chain Director Device Identifier Shelf Expiration Date Model / Serial / Lot Stent Implanted:Qty: 3 Stent N/A: Heart [employer] Advance 3-4mm 50mm Allograft Graft Nerve Sterile [id number] - [id number] - [id number] Implanted:Qty: 1 on 03/29/2022 by Jacquie Sol MD at [facility] Left: Leg [employer] 05/24/2024 [id number] / [id number] / [id number] [employer] Weck Horizon Ligate Triangulate Cross Section Wire Small Wide Latex Free [id number] - [id number] Implanted:Qty: 2 on 03/29/2022 by Jacquie Sol MD at [facility] Left: Leg [employer] 09/28/2026 [id number] / / Procedures Procedure Name Priority Date/Time Associated Diagnosis Comments POCT HEMOGLOBIN A1C Routine 05/03/2024 1 0:52 AM CDT Type 2 diabetes mellitus with hyperglycemia, without long-term current use of insulin (HCC) POCT GLUCOSE 36342 Routine 05/03/2024 10 :47 AM CDT Type 2 diabetes mellitus with hyperglycemia, without long-term current use of insulin (HCC) COMPREHENSIVE METABOLIC PANEL Routine 04/28/2023 10:22 AM ANESTHETIST Type 2 diabetes mellitus with hyperglycemia, with long-term current use of insulin (HCC) LIPID PANEL Routine 04/28/2023 10:22 AM ANESTHETIST Type 2 diabetes mellitus with hyperglycemia, with long-term current use of insulin (HCC) ALBUMIN CREATININE RATIO, URINE Routine 04/28/2023 10:22 AM ANESTHETIST Type 2 diabetes mellitus with hyperglycemia, with long-term current use of insulin (HCC) from Last 3 Months or Most Recently Relevant to Health Maintenance Results * POCT hemoglobin A1c (05/03/2024 10:52 AM CDT) Hemoglobin A1C, POC 8.1 4.0 - 5.6 % Blood 05/03/2024 10:5 2 AM CDT us Gladys Box MD POINT OF CARE TEST ORDERABLES Final Result * POCT glucose (05/03/2024 10:47 AM CDT) Glucose Blood, POC 215 mg/dL Blood 05/03/2024 10:4 7 AM CDT us Gladys Box MD POINT OF CARE TEST ORDERABLES Final Result * Albumin Creatinine Ratio, Urine (04/28/2023 10:22 AM ANESTHETIST) Microalb, Ur 13.1 0.0 - 22.9 mg/L [facility] Random Urine Creatinine 254.3 mg/dL [facility] Microalb/Creat Ratio 5.2 0.0 - 29.9 mg/g [facility] Urine 04/28/2023 10:2 2 AM ANESTHETIST 04/28/2023 11:23 AM ANESTHETIST us Gladys Box MD LAB URINE ORDERABLES Final Re sult [facility] * (ABNORMAL) Lipid panel (04/28/2023 10:22 AM ANESTHETIST) Triglycerides 165(H) <150 mg/dL [facility] Comment: Desirable: <150 mg/dL, fasting <175 mg/dL, non-fasting Persistently elevated triglycerides may enhance atherosclerotic cardiovascular disease. Total Cholesterol 106 <200 mg/dL [facility] Comment:Repeated and Verifie d Total HDL-C Direct 32(L) >40 mg/dL [facility] Comment: A low HDL-C may be inidcative of metabolic syndrome and enhance atherosclerotic cardiovascular disease risk. Non-HDL cholesterol 74 <220 mg/dL [facility] Friedewald LDL Chol 41 <190 mg/dL [facility] Comment: The inaccuracy of the Friedewald equation at LDL Cholesterol less than 70 mg/dL has been documented. Various other calculations are under investigation, such as Isaiah Gibson, et al. YUDY Cardiol. 2020;5(5):540-548 or Walt SS et al. YUDY Cardiol. 2018;3(8):749-753. Consider the use of non-HDL-c to estimate atherosclerotic cardiovascular disease risk. The Friedewald equation is accurate in most patients when triglycerides are less than 150 mg/dL. Consider the use of non-HDL-C or Apo B to help estimate atherosclerotic cardiovascular diesase risk if triglycerides are elevated. Blood 04/28/2023 10:2 2 AM ANESTHETIST 04/28/2023 11:23 AM ANESTHETIST Narrative [facility] - 04/28/2023 1:22 PM ANESTHETIST Current interpretive data was last updated January 26, 2021. For adults ages 40-79, the ACC/AHA recommends discussing your 10-year atherosclerotic cardiovascular disease risk with your health care provider. [email or web address]://www.acc.org/ASCVDApp Gladys Box MD LAB BLOOD ORDERABLES Final Re sult [facility] * (ABNORMAL) Comprehensive metabolic panel (04/28/2023 10:22 AM ANESTHETIST) Total Protein 7.2 6.1 - 8.4 g/dL [facility] Albumin 4.0 3.5 - 5.2 g/dL [facility] Calcium 9.4 8.6 - 10.3 mg/dL [facility] BUN 28(H) 7 - 23 mg/dL [facility] Total Bilirubin 0.39 0.20 - 1.40 mg/dL [facility] Alk Phos, Total 103 35 - 129 IU/L [facility] AST (SGOT) 30 11 - 47 IU/L [facility] ALT (SGPT) 29 6 - 53 IU/L [facility] Creatinine 1.18 0.70 - 1.30 mg/dL [facility] Sodium 144 135 - 145 mmol/L [facility] Potassium 4.3 3.3 - 5.1 mmol/L [facility] Chloride 109(H) 95 - 107 mmol/L [facility] CO2 Content 25 21 - 29 mmol/L [facility] Glucose 101(H) 64 - 99 mg/dL [facility] Comment: NONFASTING GLUCOSE RANGE = 64-199 mg/dL FASTING GLUCOSE 64 - 99 = NORMAL FASTING GLUCOSE 100 - 125 = IMPAIRED FASTING GLUCOSE FASTING GLUCOSE >=126 = PROVISIONAL DIAGNOSIS OF DIABETES eGFR 63.6 >60.0 mL/min/1.7 3 m2 [facility] Blood 04/28/2023 10:2 2 AM ANESTHETIST 04/28/2023 11:23 AM ANESTHETIST Gladys Box MD LAB BLOOD ORDERABLES Final Re sult [facility] from Last 3 Months or Most Recently Relevant to Health Maintenance Insurance MEDICARE [facility] MEDICARE [facility] MEDICARE [facility] Advance Directives For more information, please contact: [phone] * Full Code (Latest Code Status on File) Date Activated Date Inactivated Comments 04/15/2022 4:03 PM 04/18/2022 9:50 PM * Full Code Date Activated Date Inactivated Comments 03/29/2022 4:51 PM 03/30/2022 7:50 PM Care Teams Teacher Instrumental Relationship Specialty Start Date End Date Stuart Howe DO [address] [place] [address] PCP - General Family Medicine 3/17/22 July Maradiaga MD [address] [place] [address] Consulting Physician Cardiology 03/22/22 Bandar Up DPT [address] [facility] [place] [address] [id number] Physical Therapist Physical Therapy 06/11/22 Esther Garcia, PT [address] [facility] [place] [address] [address] Physical Therapist Physical Therapy 08/13/22
--- OUTSIDE RECORDS SUMMARY | 2024-05-12 13:47 | XMS_ITS | Encounter Summary ---
Author Organization [employer] Address [address] [place] [address] Care Team Providers Care Erco Machine Operator Name Role Phone Ehsan Campos MD Primary Care Provider [phone] Encounter Details Date Type Department Care Team (Latest Contact Info) Description 02/14/2003 Outpatient Historical HIS PATIENT IN A BED Backer, Wellington Husain MD NO ADDRESS ON FILE ACQ SPONDYLOLISTHESIS (Primary Dx) Social History Tobacco Use Types Packs/Day Years Used Date Smoking Tobacco: Never Assessed Sex and Gender Information Value Date Recorded Sex Assigned at Not on file Legal Sex Male 2:57 AM CREEL HAND Gender Identity Not on file Sexual Orientation Not on file documented as of this encounter Plan of Treatment Not on file documented as of this encounter Visit Diagnoses Diagnosis Acquired spondylolisthesis- Primary documented in this encounter Care Teams Erco Machine Operator Relationship Specialty Start Date End Date Ehsan Campos MD [address] [place] [address] PCP - General 01/14/03 documented as of this encounter
--- OUTSIDE RECORDS SUMMARY | 2024-05-12 13:47 | XMS_ITS | Encounter Summary ---
Author Organization [facility] Address 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
--- OUTSIDE RECORDS SUMMARY | 2024-05-12 13:47 | XMS_ITS | Encounter Summary ---
Author Organization [employer] Address 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
--- OUTSIDE RECORDS SUMMARY | 2024-05-12 13:47 | XMS_ITS | Encounter Summary ---
Author Organization [employer] Address [address] [place] [address] Care Team Providers Care Ecologist Name Role Phone Ehsan Campos MD Primary Care Provider [phone] Encounter Details Date Type Department Care Team (Late st Contact Info) Description 06/27/2006 [facility] [address] 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
--- OUTSIDE RECORDS SUMMARY | 2024-05-12 13:47 | XMS_ITS | Encounter Summary ---
Author Organization [facility] Address [address] [place] [address] Phone Care Team Providers Care Tax Manager Public Name Role Phone Stuart Howe DO Primary Care Provider July Maradiaga MD Unavailable [phone] Bandar Up DPT Unavailable [phone] Esther Garcia PT Unavailable [phone] Encounter Details Date Type Department Care Team (Late st Contact Info) Description 07/16/2022 Documentation [facility] Physical Therapy Pain Clinic [address] [facility] Advanced Medicine 14th [place] [address] [place] [address] Esther Garcia, PT [address] [facility] [address] [place] [address] Social History Tobacco Use Types Packs/Day Years Used Date Smoking Tobacco: Former Cigarettes Q uit: 02/25/1964 Smokeless Tobacco: Never Alcohol Use Standard Drinks/Week Comments No 0 [...] the money to buy more. Never true 06/12/19 23 Within the past 12 months, t he food you bought just didn't last and you didn't have money to get more. 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 Gender Identity Male 05/07/2021 12:04 AM CDT Sexual Orientation Straight 06/25/2022 9: 20 AM CDT documented as of this encounter Plan of Treatment Not on file documented as of this encounter Visit Diagnoses Not on filedocumented in this encounter Care Teams Tax Manager Public Relationship Specialty Start Date End Date Stuart Howe DO [address] [place] [address] PCP - General Family Medicine 05/10/21 July Maradiaga MD [address] [place] [address] Consulting Physician Cardiology 03/22/22 Bandar Up DPT [address] [facility] [address] [place] [id number] Physical Therapist Physical Therapy 06/11/22 Esther Garcia PT [address] [facility] [address] [facility] [place], [place] [id number] Physical Therapist Physical Therapy 08/13/22 documented as of this encounter
--- OUTSIDE RECORDS SUMMARY | 2024-05-12 13:47 | XMS_ITS | Encounter Summary ---
Author Organization [employer] Address 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
--- OUTSIDE RECORDS SUMMARY | 2024-05-12 13:47 | XMS_ITS | Encounter Summary ---
Author Organization [employer] Address [address] [place] [address] Care Team Providers Care Investment Accounting Clerk Name Role Phone Ehsan Campos MD Primary Care Provider [phone] Encounter Details Date Type Department Care Team (Late st Contact Info) Description 06/29/1999 Outpatient Historical [facility] Wilmer Barba MD [address] [place] [address] Dyspepsia and other specified disorders of function of stomach (Primary Dx) Social History Tobacco Use Types Packs/Day Years Used Date Smoking Tobacco: Never Assessed Sex and Gender Information Value Date Recorded Sex Assigned at Not on file Legal Sex Male 2:[address] RAIL[employer]AY Gender Identity Not on file Sexual Orientation Not on file documented as of this encounter Plan of Treatment Not on file documented as of this encounter Visit Diagnoses Diagnosis Dyspepsia and other specified disorders of function of stomach- Primary documented in this encounter Care Teams Investment Accounting Clerk Relationship Specialty Start Date End Date Ehsan Campos MD [address] [place] [address] PCP - General 01/14/03 documented as of this encounter
--- OUTSIDE RECORDS SUMMARY | 2024-05-12 13:47 | XMS_ITS | Encounter Summary ---
Author Organization [employer] Address [address] [place] [address] Care Team Providers Care Insulation Packer Name Role Phone Ehsan Campos MD Primary Care Provider [phone] Encounter Details Date Type Department Care Team (Late st Contact Info) Description 02/05/[address] [facility] ([facility]) [address] 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
--- OUTSIDE RECORDS SUMMARY | 2024-05-12 13:47 | XMS_ITS | Referral Summary ---
Author Organization [facility] Address [address] [place] [address] Care Team Providers Care Reeling Machine Setup Operator Name Role Phone Stuart Howe DO Primary Care Provider July Maradiaga MD Unavailable Bandar Up DPT Unavailable [phone] Esther Garcia PT Unavailable [phone] Encounters Date Type Department Care Team Description 05/10/2024 Orders Only [facility] Endocrinology Metabolism and Lipid [address] [facility] Medicine 13th [place] [address] [place] [address] Jazzy Alvarado RMA Type 2 diabetes mellitus with hyperglycemia, without long-term current use of insulin (HCC) 05/03/2024 11:00 AM CDT Office Visit [facility] Endocr[facility]ology Metabolism and Lipid [address] [facility] Medicine 13th [place] [address] [place] [address] Glayds Box MD Type 2 diabetes mellitus with hyperglycemia, without long-term current use of insulin (HCC) (Primary Dx); Steroid-induced hyperglycemia; Type 2 diabetes mellitus with hyperglycemia, with long-term current use of insulin (HCC) 02/19/2024 2:30 PM LABOR/EXCAVATOR Office Visit [facility] Neuro Muscle [address] [facility] 6th [place] [address] [place] [address] Wellington Alva MD PhD Mononeuropathy multiplex syndrome (Primary Dx); Spinal stenosis of lumbar region, unspecified whether neurogenic claudication present from Last 3 Months Allergies No known active allergies Medications aspirin 81 mg enteric coated tablet Take 1 tablet (81 mg total) by mouth daily with breakfast Active albuterol HFA (PROVENTIL HFA,VENTOLIN HFA,PROAIR HFA) 90 mcg/actuation inhaler Inhale 2 puffs every 6 (six) hours as needed for wheezing or shortness of breath Active folic acid (FOLVITE) 1 mg tablet Take 1 tablet (1,000 mcg total) by mouth every morning Active acetaminophen (TYLENOL) 500 mg tablet Take [...] BOLUS (MAX 90 UNITS/DAY) 15 mL 1 024 Active Additional Information Patient not taking.Reported on [...] Active pen needle, diabetic 32 gauge x needleIndicat ions:Type 2 diabetes mellitus with hyperglycemia [...] prompt medical attention is recommended 0 0 014 2024 Discontinued(T herapy completed) clobetasol (TEMOVATE) 0.05 % cream apply by topical route 2 times every day a thin layer to the affected area(s) 0 0 016 2024 Discontinued(A lternate therapy) onra-zft-owk- axv-grod-bvwd -pec (Fiber 6) 1,000 mg tablet Take [...] therapy) pen needle, diabetic 32 gauge x 5/32 [...] (03/22/2022): Added automatically from request for surgery [id number] Essential (primary) hypertension 04/19/2020 Chronic back pain 04/19/2020 Hyperlipemia 05/11/2014 Sleep apnea 05/11/2014 Spinal stenosis 05/11/2014 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 Overview (04/18/2022): Coronary arteriosclerosis in [place] artery Type 2 diabetes mellitus wit h hyperglycemia, with long-term current use of insulin On methylprednisolone therapy IgA deficiency IgM deficiency Persistent 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 complication Immunizations Immunization Administration Dates Next Due Pneumococcal Polysaccharide PPV23 06/18/2022 Social History Tobacco Use Types Packs/Day Years [...] on file Legal Sex Male 6:01 PM LABOR/EXCAVATOR Gender Identity Male 05/07/2021 12:04 AM CDT Sexual Orientation Straight 06/25/2022 9: 20 AM CDT Last Filed Vital Signs Vital Sign Reading [...] 05/03/2024 10:44 AM CDT Plan of Treatment Not on file Medical Devices Implanted Type Area Human Capital Analyst Device Identifier Shelf Expiration Date Model / Serial / Lot Stent Implanted:Qty: 3 Stent N/A: Heart [employer] Advance 3-4mm 50mm Allograft Graft Nerve Sterile [id number] - [id number] - [id number] Implanted:Qty: 1 on 03/29/2022 by Jacquie Sol MD at [facility] Advanced Medicine Left: Leg [employer] 05/24/2024 [id number] / [id number] / [id number] [employer] Weck Horizon Ligate Triangulate Cross Section Wire Small Wide Latex Free [id number] - [id number] Implanted:Qty: 2 on 03/29/2022 by Jacquie Sol MD at [facility] Advanced Medicine Left: Leg [employer] 09/28/2026 [id number] / / Procedures Procedure Name Priority Date/Time Associated Diagnosis Comments POCT HEMOGLOBIN A1C Routine 05/03/2024 1 0:52 AM CDT Type 2 diabetes mellitus with hyperglycemia, without long-term current use of insulin (HCC) POCT GLUCOSE 55155 Routine 05/03/2024 10 :47 AM CDT Type 2 diabetes mellitus with hyperglycemia, without long-term current use of insulin (HCC) COMPREHENSIVE METABOLIC PANEL Routine 04/28/2023 10:22 AM LABOR/EXCAVATOR Type 2 diabetes mellitus with hyperglycemia, with long-term current use of insulin (HCC) LIPID PANEL Routine 04/28/2023 10:22 AM LABOR/EXCAVATOR Type 2 diabetes mellitus with hyperglycemia, with long-term current use of insulin (HCC) ALBUMIN CREATININE RATIO, URINE Routine 04/28/2023 10:22 AM LABOR/EXCAVATOR Type 2 diabetes mellitus with hyperglycemia, with long-term current use of insulin (HCC) from Last 3 Months or Most Recently Relevant to Health Maintenance Results * POCT hemoglobin A1c (05/03/2024 10:52 AM CDT) Hemoglobin A1C, POC 8.1 4.0 - 5.6 % Blood 05/03/2024 10:5 2 AM CDT Gladys Box MD POINT OF CARE TEST ORDERABLES Final Result * POCT glucose (05/03/2024 10:47 AM CDT) Glucose Blood, POC 215 mg/dL Blood 05/03/2024 10:4 7 AM CDT us Gladys Box MD POINT OF CARE TEST ORDERABLES Final Result * Albumin Creatinine Ratio, Urine (04/28/2023 10:22 AM LABOR/EXCAVATOR) Microalb, Ur 13.1 0.0 - 22.9 mg/L [facility] Random Urine Creatinine 254.3 mg/dL [facility] Microalb/Creat Ratio 5.2 0.0 - 29.9 mg/g [facility] Urine 04/28/2023 10:2 2 AM LABOR/EXCAVATOR 04/28/2023 11:23 AM LABOR/EXCAVATOR Gladys Box MD LAB URINE ORDERABLES Final Re sult [facility] * (ABNORMAL) Lipid panel (04/28/2023 10:22 AM LABOR/EXCAVATOR) Triglycerides 165(H) <150 mg/dL [facility] [...] calculations are under investigation, such as Isaiah Gibson et al. YUDY Cardiol. 2020;5(5):540-548 or Walt GASTON et al. YUDY Cardiol. 2018;3(8):749-753. Consider the use of non-HDL-c to estimate atherosclerotic cardiovascular disease risk. The Friedewald equation is accurate in most patients when triglycerides are less than 150 mg/dL. Consider the use of non-HDL-C or Apo B to help estimate atherosclerotic cardiovascular diesase risk if triglycerides are elevated. Blood 04/28/2023 10:2 2 AM LABOR/EXCAVATOR 04/28/2023 11:23 AM LABOR/EXCAVATOR Narrative [facility] - 04/28/2023 1:22 PM LABOR/EXCAVATOR Current interpretive data was last updated January 26, 2021. For adults ages 40-79, the ACC/AHA recommends discussing your 10-year atherosclerotic cardiovascular disease risk with your health care provider. https://www.acc.org/ASCVDApp Gladys Box MD LAB BLOOD ORDERABLES Final Re sult [facility] * (ABNORMAL) Comprehensive metabolic panel (04/28/2023 10:22 AM LABOR/EXCAVATOR) Total Protein 7.2 6.1 - 8.4 g/dL [...] [facility] Blood 04/28/2023 10:2 2 AM LABOR/EXCAVATOR 04/28/2023 11:23 AM LABOR/EXCAVATOR us Gladys Box MD LAB BLOOD ORDERABLES Final Re sult [facility] from Last 3 Months or Most Recently Relevant to Health Maintenance Insurance MEDICARE [facility] MEDICARE [facility] MEDICARE [employer] [facility] Advance Directives For more information, please contact: [phone] * Full Code (Latest Code Status on File) Date Activated Date Inactivated Comments 04/15/2022 4:03 PM 04/18/2022 9:50 PM * Full Code Date Activated Date Inactivated Comments 03/29/2022 4:51 PM 03/30/2022 7:50 PM Care Teams Reeling Machine Setup Operator Relationship Specialty Start Date End Date Stuart Howe DO [address] [place] [address] PCP - General Family Medicine 05/10/21 July Maradiaga MD [address] [place] [address] Consulting Physician Cardiology 03/22/22 Bandar Up DPT [address] [address] Physical Therapist Physical Therapy 06/11/22 Esther Garcia, PT [address] [place] [place] [address] [address] [place] [address] Physical Therapist Physical Therapy 08/13/22
--- OUTSIDE RECORDS SUMMARY | 2024-05-12 13:47 | XMS_ITS | Clinical Summary ---
Author Organization [facility] Address [address] [address] Phone Care Team Providers Care Pediatric Genetic Counselor Name Role Phone Ehsan Campos MD Primary Care Provider [phone] Madhav Hodges DO Unavailable [phone] Allergies No known active allergies Medications polyethylene glycol (MIRALAX) Powder Mix the entire bottle with 64 oz of a clear liquid. Use as directed by the office for colonoscopy prep. 255 g 0 6 Active doxazosin (CARDURA) 8 MG Tablet Take 8 mg by mouth daily. Active glimepiride (AMARYL) 4 MG Tablet Take 4 mg by mouth every morning. Active metFORMIN (GLUCOPHAGE) 500 MG Tablet Take 500 mg by mouth 2 times daily (with meals). 2 TABS Active omeprazole (PRILOSEC) 40 MG CAPSULE DELAYED RELEASE Take 40 mg by mouth daily. Active atorvastatin (LIPITOR) 20 MG Tablet Take 20 mg by mouth daily. Active carvedilol (COREG) 6.25 MG Tablet Take 6.25 mg by mouth 2 times daily. Active lisinopril (PRINIVIL, ZESTRIL) 5 MG Tablet Take 5 mg by mouth daily. Active finasteride (PROSCAR) 5 MG Tablet Take 5 mg by mouth daily. Active gabapentin (NEURONTIN) 300 MG Capsule Take 300 mg by mouth daily. Active aspirin 325 MG Tablet Take 325 mg by mouth daily. Active Inulin (FIBER CHOICE PO) Take 2 Tabs by mouth 2 times daily. Active fish oil-omega-3 fatty acids 1000 MG Capsule Take 1,000 mg by mouth 3 times daily. Active doxazosin (CARDURA) 8 MG Tablet Take 8 mg by mouth daily. Active Multiple Vitamin (MULTI-VITAMIN PO) Take by mouth. Activ e Family History Medical History Relation Name Comments Diabetes Brother Hypertension Brother Diabetes Father Heart Attack Father Heart Disease Father Hypertension Father Cancer Mother stomach Diabetes Mother Heart Disease Mother Hypertension Mother Hypertension Sister Relation Name Status Comments Brother Father Mother Sister Social History Tobacco Use Types Packs/Day Years Used Date Smoking Tobacco: Former Cigarettes 1 8 0 10/02/1962 - 10/02/1970 Comments:quit in his 20's Alcohol Use Standard Drinks/Week Comments No 0 (1 standard drink = 0.6 oz pur e alcohol) Sex and Gender Information Value Date Recorded Sex Assigned at Not on file Legal Sex Male 4:07 PM CDT Gender Identity Not on file Sexual Orientation Not on file 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 Not on file Not on file Not o n file Last Filed Vital Signs Vital Sign Reading Time Taken Comments Blood Pressure 131/69 10/10/2015 9:25 AM CDT Pulse - - Temperature 36 C (96.8 F) 10/10/2015 9:25 AM CDT Respiratory Rate 15 10/10/2015 9:25 AM CDT Oxygen Saturation 100% 10/10/2015 9:25 AM CDT Inhaled Oxygen Concentration - - Weight 84.4 kg (186 lb) 10/03/2015 1:00 PM CDT Height 174 cm (5' 8.5 ) 10/03/2015 1:00 PM CDT Body Mass Index 27.87 10/03/2015 1:00 PM CDT Plan of Treatment Health Maintenance Due Date Last Done Comments Hepatitis C Virus (HCV) Screening 1945 TdaP Immunization 1945 Pneumococcal Immunization (5 0+ years) (1 of 1 - PCV) 12/03/1995 Zoster Immunization (1 of 2) 12/03/1995 Respiratory Syncytial Virus (RSV) Immunization (Adult) (1 - 1-dose 75+ series) 2020 Influenza Immunization (#1) 2023 SARS-COV-2 Immunization ( - 2023-25 season) 2023 Colonoscopy High Risk Discontinued 10/10/2015 Colonoscopy Discontinued 10/10/2015 Colorectal Cancer Screening Discontinued Cologuard Discontinued Hepatitis B Immunization Aged Out No longer eligible based on patient's age to complete this topic Immunochemical Fecal Occult Blood Discontinued Meningococcal Immunization (ACWY) Aged Out No longer eligible based on patient's age to complete this topic Rotavirus Immunization Aged Out No lo nger eligible based on patient's age to complete this topic Insurance MEDICARE Care Teams Pediatric Genetic Counselor Relationship Specialty Start Date End Date Ehsan Campos MD [address] [place] [address] PCP - General Family Medicine 10/06/15 Madhav Hodges DO [address] [place] [address] Gastroenterology 10/24/15
--- OUTSIDE RECORDS SUMMARY | 2024-05-12 13:47 | XMS_ITS | Encounter Summary ---
Author Organization [employer] Address 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 Gender Identity Not on file Sexual Orientation Not on file documented as of this encounter Plan of Treatment Not on file documented as of this encounter Procedures Procedure Name Priority Date/Time Associated Diagnosis Comments POC GLUCOSE Routine 07/01/2006 5:00 AM CDT POC GLUCOSE Routine 06/30/2006 8:12 PM CDT POC GLUCOSE Routine 06/30/2006 5:01 PM CDT POC GLUCOSE Routine 06/30/2006 11:58 AM CDT POC GLUCOSE Routine 06/30/2006 9:10 AM CDT POC GLUCOSE Routine 06/30/2006 5:56 AM CDT HEMOGLOBIN AND HEMATOCRIT Routine 06/27/2006 11:17 AM CDT BASIC METABOLIC PANEL Routine 06/27/2006 11:17 AM CDT documented in this encounter Results * (ABNORMAL) POC GLUCOSE (07/01/2006 5:00 AM CDT) GLUCOSE POC 152(H) 65 - 99 mg/dL INTERFACE SYSTEM 07/01/2006 5:00 AM CDT Wellington Mendoza MD POINT OF CARE TESTING Edited Performing Organization Address [facility] Co de Phone Number INTERFACE SYSTEM Refer to clinic/hospital department * (ABNORMAL) POC GLUCOSE (06/30/2006 8:12 PM CDT) COMMENT, GLU POC Notified RN INTERFACE SYSTEM GLUCOSE POC 286(H) 65 - 99 mg/dL INTERFACE SYSTEM 06/30/2006 8:12 PM CDT Wellington Mendoza MD POINT OF CARE TESTING Edited Performing Organization Address [facility] de Phone Number INTERFACE SYSTEM Refer to clinic/hospital department * (ABNORMAL) POC GLUCOSE (06/30/2006 5:01 PM CDT) COMMENT, GLU POC Notified RN INTERFACE SYSTEM GLUCOSE POC 227(H) 65 - 99 mg/dL INTERFACE SYSTEM 06/30/2006 5:01 PM CDT Wellington Mendoza MD POINT OF CARE TESTING Edited Performing Organization Address [facility] de Phone Number INTERFACE SYSTEM Refer to clinic/hospital department * (ABNORMAL) POC GLUCOSE (06/30/2006 11:58 AM CDT) COMMENT, GLU POC Notified RN INTERFACE SYSTEM GLUCOSE POC 180(H) 65 - 99 mg/dL INTERFACE SYSTEM 06/30/2006 11:5 8 AM CDT us Wellington Mendoza MD POINT OF CARE TESTING Edited Performing Organization Address [facility] Co de Phone Number INTERFACE SYSTEM Refer to clinic/hospital department * (ABNORMAL) POC GLUCOSE (06/30/2006 9:10 AM CDT) GLUCOSE POC 165(H) 65 - 99 mg/dL INTERFACE SYSTEM 06/30/2006 9:10 AM CDT us [place] Mendoza MD POINT OF CARE TESTING Edited Performing Organization Address [facility] de Phone Number INTERFACE SYSTEM Refer to clinic/hospital department * (ABNORMAL) POC GLUCOSE (06/30/2006 5:56 AM CDT) GLUCOSE POC 138(H) 65 - 99 mg/dL INTERFACE SYSTEM 06/30/2006 5:56 AM CDT us Wellington Mendoza MD POINT OF CARE TESTING Edited Performing Organization Address [facility] de Phone Number INTERFACE SYSTEM Refer to clinic/hospital department * BASIC METABOLIC PANEL (06/27/2006 11:17 AM CDT) GLUCOSE 83 65 - 99 mg/dL INTERFACE SYSTEM CREATININE 0.91 0.67 - 1.17 mg/dL INTERFACE SYSTEM CALCIUM 9.1 8.4 - 10.2 mg/dL INTERFACE SYSTEM BUN 18 6 - 20 mg/dL INTERFACE SYSTEM SODIUM 143 135 - 145 mmol/L INTERFACE SYSTEM POTASSIUM 4.0 3.5 - 4.9 mmol/L INTERFACE SYSTEM CHLORIDE 106 96 - 108 mmol/L INTERFACE SYSTEM CO2 28 22 - 30 mmol/L INTERFACE SYSTEM GFR, >60 >=60 mL/min/1.7 sq meter INTERFACE SYSTEM GFR >60 >=60 mL/min/1.7 sq meter INTERFACE SYSTEM Comment: Estimated GFR rate interpretative information for both Americans and non- Americans is available on the [facility] Intranet at: [email or web address] Select: Lab Policies and Procedures Select: Reference Ranges - GFR 06/27/2006 11:1 7 AM CDT us Wellington Mendoza MD CHEMISTRY ORDERABLES Edited Performing Organization Address [facility] de Phone Number INTERFACE SYSTEM Refer to clinic/hospital department * HEMOGLOBIN AND HEMATOCRIT (06/27/2006 11:17 AM CDT) HEMOGLOBIN 14.8 13.6 - 16.5 g/dL INTERFACE SYSTEM HEMATOCRIT 42.9 40.0 - 48.0 % INTERFACE SYSTEM 06/27/2006 11:1 7 AM CDT us Wellington Mendoza MD HEMATOLOGY ORDERABLES Edited INTERFACE SYSTEM Refer to clinic/hospital department documented in this encounter Visit Diagnoses Diagnosis Cervical spondylosis without myelopathy- Primary documented in this encounter Care Teams Wet Plant Operator Relationship Specialty Start Date End Date Ehsan Campos MD [address] [place] [id number] PCP - General 01/14/03 documented as of this encounter
--- OUTSIDE RECORDS SUMMARY | 2024-05-12 13:47 | XMS_ITS | Encounter Summary ---
Author Organization [facility] Address [address] [place] [address] Phone Care Team Providers Care Tile Shader Name Role Phone Stuart Howe DO Primary Care Provider July Maradiaga MD Unavailable [phone] Bandar Up DPT Unavailable [phone] Esther Garcia PT Unavailable [phone] Encounter Details Date Type Department Care Team (Late st Contact Info) Description 02/01/2022 Telephone [facility] Scheduling [address] [place] [address] Galilea Esteban CMA Social History Tobacco Use Types Packs/Day Years Used Date Smoking Tobacco: Former Cigarettes Q uit: 02/25/1964 Alcohol Use Standard Drinks/Week Comments No 0 (1 standard drink = 0.6 oz pur e alcohol) Sex and Gender Information Value Date Recorded Sex Assigned at Not on file Legal Sex Male 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 Gender Identity Male 05/07/2021 12:04 AM CDT Sexual Orientation Straight 06/25/2022 9: 20 AM CDT documented as of this encounter Plan of Treatment Not on file documented as of this encounter Visit Diagnoses Not on filedocumented in this encounter Care Teams Tile Shader Relationship Specialty Start Date End Date Stuart Howe DO [address] [place] [address] PCP - General Family Medicine 05/10/21 July Maradiaga MD [address] [place] [address] Consulting Physician Cardiology 03/22/22 Bandar Up, RADHAT [address] [facility] [place] [address] [address] Physical Therapist Physical Therapy 06/11/22 Esther Garcia, PT [address] [facility] [place] [address] [address] Physical Therapist Physical Therapy 08/13/22 documented as of this encounter
--- OUTSIDE RECORDS SUMMARY | 2024-05-12 13:47 | XMS_ITS | Encounter Summary ---
Author Organization [facility] Address 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
--- OUTSIDE RECORDS SUMMARY | 2024-05-12 13:47 | XMS_ITS | Encounter Summary ---
Author Organization [facility] Address 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 Gender Identity Not on file Sexual Orientation Not on file documented as of this encounter Plan of Treatment Not on file documented as of this encounter Procedures Procedure Name Priority Date/Time Associated Diagnosis Comments DIFFERENTIAL, CSF Routine 06/10/2006 1:4 7 PM CDT SPINAL FLUID CELL COUNT W/REFLEXIVE DIFF Routine 06/10/2006 1:47 PM CDT TOTAL PROTEIN, CSF Routine 06/10/2006 1: 47 PM CDT GLUCOSE, CSF Routine 06/10/2006 1:47 PM CDT HEMOGLOBIN AND HEMATOCRIT Routine 06/10/2006 10:35 AM CDT BASIC METABOLIC PANEL Routine 06/10/2006 10:35 AM CDT documented in this encounter Results * (ABNORMAL) DIFFERENTIAL, CSF (06/10/2006 1:47 PM CDT) LYMPHOCYTES, CSF 100(H) 40 - 80 % INTERFACE SYSTEM # CELLS COUNTED FOR DIFF, CSF <10 WBC Counted INTERFACE SYSTEM 06/10/2006 1:47 PM CDT Result [facility] Wellington Mendoza MD HEMATOLOGY ORDERABLES Edited Performing Organization Address [facility] Phone Number INTERFACE SYSTEM Refer to clinic/hospital department * TOTAL PROTEIN, CSF (06/10/2006 1:47 PM CDT) PROTEIN, CSF 43 15 - 45 mg/dL INTERFACE SYSTEM 06/10/2006 1:47 PM CDT Wellington Mendoza MD BODY FLUIDS AND STOOLS Edited Performing Organization Address [facility] Phone Number INTERFACE SYSTEM Refer to clinic/hospital department * (ABNORMAL) GLUCOSE, CSF (06/10/2006 1:47 PM CDT) GLUCOSE, CSF 75(H) 40 - 70 mg/dL INTERFACE SYSTEM 06/10/2006 1:47 PM CDT Wellington Mendoza MD BODY FLUIDS AND STOOLS Edited Performing Organization Address [facility] INTERFACE SYSTEM Refer to clinic/hospital department * (ABNORMAL) SPINAL FLUID CELL COUNT W/REFLEXIVE DIFF (06/10/2006 1:47 PM CDT) COLOR, CSF Colorless Colorless INTERFACE SYSTEM APPEARANCE, CSF Clear Clear INTERFACE SYSTEM TUBE #, CSF 1 INTERFAC E SYSTEM VOLUME, CSF 1.5 mL INTERFAC E SYSTEM WBC, CSF 2 0 - 10 /uL INTERFACE SYSTEM RBC, CSF 77(H) <=0 /uL INTERFACE SYSTEM 06/10/2006 1:47 PM CDT Wellington Mendoza MD BODY FLUIDS AND STOOLS Edited Performing Organization Address [facility] Phone Number INTERFACE SYSTEM Refer to clinic/hospital department * (ABNORMAL) BASIC METABOLIC PANEL (06/10/2006 10:35 AM CDT) GLUCOSE 131(H) 65 - 99 mg/dL INTERFACE SYSTEM CREATININE 0.93 0.67 - 1.17 mg/dL INTERFACE SYSTEM CALCIUM 9.0 8.4 - 10.2 mg/dL INTERFACE SYSTEM BUN 18 6 - 20 mg/dL INTERFACE SYSTEM SODIUM 141 135 - 145 mmol/L INTERFACE SYSTEM POTASSIUM 3.8 3.5 - 4.9 mmol/L INTERFACE SYSTEM CHLORIDE 104 96 - 108 mmol/L INTERFACE SYSTEM CO2 28 22 - 30 mmol/L INTERFACE SYSTEM GFR, >60 >=60 mL/min/1. 7 sq meter INTERFACE SYSTEM GFR >60 >=60 mL/min/1. 7 sq meter INTERFACE SYSTEM Comment: Estimated GFR rate interpretative information for both Americans and non- Americans is available on the [facility] Intranet at: [email or web address] Select: Lab Policies and Procedures Select: Reference Ranges - GFR 06/10/2006 10:3 5 AM CDT us Wellington Mendoza MD CHEMISTRY ORDERABLES Edited Performing Organization Address City/[facility]/ZIP Co de Phone Number INTERFACE SYSTEM Refer to clinic/hospital department * HEMOGLOBIN AND HEMATOCRIT (06/10/2006 10:35 AM CDT) HEMOGLOBIN 14.5 13.6 - 16.5 g/dL INTERFACE SYSTEM HEMATOCRIT 42.3 40.0 - 48.0 % INTERFACE SYSTEM 06/10/2006 10:3 5 AM CDT us Wellington Mendoza MD HEMATOLOGY ORDERABLES Edited Performing Organization Address [facility]/State/ZIP Co de Phone Number INTERFACE SYSTEM Refer to clinic/hospital department documented in this encounter Visit Diagnoses Diagnosis Cervicalgia- Primary documented in this encounter Care Teams News Department Intern Relationship Specialty Start Date End Date Ehsan Campos MD [address] [place] [address] PCP - General 01/14/03 documented as of this encounter
--- OUTSIDE RECORDS SUMMARY | 2024-05-12 13:48 | XMS_ITS | Clinical Summary ---
Author Organization [facility] Address [address] [place] [address] Phone Care Team Providers Care Exchange Teller Name Role Phone Ehsan Campos MD Primary Care Provider [phone] Allergies No known active allergies Medications nitroglycerin (NITROSTAT) 0.4 mg Tablet, Sublingual Place 0.4 mg under tongue every 5 minutes as needed for Chest Pain. Active aspirin (DEBBIE) 325 mg tablet Take 325 mg by mouth daily. Active carvedilol (COREG) 6.25 mg tablet Take 6.25 mg by mouth 2 times daily. Active glimepiride (AMARYL) 4 mg tablet Take 2 mg by mouth daily before supper. Active lisinopril (PRINIVIL) 5 mg tablet Take 5 mg by mouth daily after supper. Active metFORMIN (GLUCOPHAGE) 500 mg tablet Take 1,000 mg by mouth 2 times daily with meals. Active simvastatin (ZOCOR) 40 mg tablet Take 40 mg by mouth Daily LATE. Active finasteride (PROSCAR) 5 mg tablet Take 5 mg by mouth daily after supper. Active pregabalin (LYRICA) 150 mg Capsule Take 150 mg by mouth daily after supper. Active omeprazole (PRILOSEC) 40 mg Capsule, Delayed Release(E.C.) Take 40 mg by mouth daily. Active sitaGLIPtin (JANUVIA) 100 mg Tablet Take 100 mg by mouth daily after supper. Active omega-3 fatty acids-fish oil 300-1,000 mg Capsule Take by mouth 3 times daily. Active multivitamin (DAILY-LEONA) tablet Take 1 Tab by mouth daily. Active atorvastatin (LIPITOR) 20 mg tablet Take 20 mg by mouth daily. Active traMADol (ULTRAM) 50 mg tablet Take 100 mg by mouth every 6 hours as needed for Pain. Active gabapentin (NEURONTIN) 300 mg capsule Take 300 mg by mouth Daily LATE. Active doxazosin (CARDURA) 4 mg tablet Take 4 mg by mouth daily. Active HYDROcodone-zoya taminophen (NORCO) 5-325 mg tablet Take 1-2 Tablet by mouth every 4 hours as needed for Pain, Mild or Pain, Moderate. Max Daily Amount: 12 Tablet 90 Tablet 0 09/04/2015 Active Active Problems Problem Noted Date Diagnosed Date Spinal stenosis 05/11/2014 DM (diabetes mellitus) 05/11/2014 Hypertension 05/11/2014 Hyperlipemia 05/11/2014 IHD (ischemic heart disease) 05/11/2014 Sleep apnea 05/11/2014 Lumbar back pain Immunizations Immunization Administration Dates Next Due Influenza Seasonal Unspecified Formulation IM ,2013 Social History Tobacco Use Types Packs/Day Years Used Date Smoking Tobacco: Former Cigarettes Q uit: 04/06/1970 Alcohol Use Standard Drinks/Week Comments No 0 (1 standard drink = 0.6 oz pur e alcohol) Sex and Gender Information Value Date Recorded Sex Assigned at Not on file 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 Gender Identity Not on file Sexual Orientation Not on file Last Filed Vital Signs Vital Sign Reading Time Taken Comments Blood Pressure 125/74 09/04/2015 7:27 PM CDT Pulse 76 09/04/2015 7:27 PM CDT Temperature 36.7 C (98 F) 09/04/2015 7:27 PM CDT Respiratory Rate 16 09/04/2015 7:27 PM CDT Oxygen Saturation 95% 09/04/2015 7:27 PM CDT Inhaled Oxygen Concentration - - Weight 84.6 kg (186 lb 9.6 oz) 09/04/2015 11:51 AM CDT Height 175.3 cm (5' 9 ) 08/25/2015 9:27 AM CDT Body Mass Index 27.56 08/25/2015 9:27 AM CDT Plan of Treatment Health Maintenance Due Date Last Done Comments DIABETES ANNUAL FOOT EXAM 12/03/1963 DIABETES ANNUAL RETINAL EXAM 12/03/1963 DIABETES MICROALBUMIN ANNUAL SCREEN 12/03/1963 LDL CHOLESTEROL ANNUAL 12/03/1963 DTAP/TDAP/TD VACCINES (1 - Tdap) 1964 ZOSTER VACCINE (1 of 2) 1964 RSV VACCINE (60+ or ) (1 - 1-dose 75+ series) 2020 PNEUMOCOCCAL VACCINE 50+ YEA RS (2 of 2 - PCV) 06/19/2023 06/18/2022 INFLUENZA VACCINE (#1) 2023 3, 12/07/2021, 12/08/2018, Additional history exists DIABETES HBA1C Q 6 MONTHS 05/05/20242023, 11/29/2018, 05/10/2014 Medical Devices Implanted Type Area Cereal Chemist Device Identifier Shelf Expiration Date Model / Serial / Lot Rick Xpdm Crv W/Line 75mm [id number] - [id number] Implanted:Qty : 2 on 05/10/2014 by Alban Boyd MD at [facility] Rick N/A: Spine Lumbar [employer] 5 / / Description:Load 312 April 24 Screw Set Inner 1797-22-000 - [id number] Implanted:Qty : 6 on 05/10/2014 by Alban Boyd MD at [facility] Screw [employer] 0 / / Description:Load 39 2014 Screw Xpdm Fa 6.0x45mm [id number] - [id number] Implanted:Qty : 1 on 05/10/2014 by Alban Boyd MD at [facility] Screw [employer] 5 / / Description:Load 39 April 25, 2014 Screw Xpdm Fa 7.0x45mm [id number] - [id number] Implanted:Qty : 5 on 05/10/2014 by Alban Boyd MD at [facility] Screw [employer] 5 / / Description:Load 39 2014 Sealant Floseal W/ Adptr 10ml [id number] - [id number] Implanted:Qty : 1 on 05/10/2014 by Alban Boyd MD at [facility] Sealant N/A: Back [employer]- [employer] 07/24/2015 [id number] / / [id number] Sealant Floseal W/ Adptr 10ml [id number] - [id number] Implanted:Qty : 1 on 09/04/2015 by Aixa Tamayo MD at [facility] Sealant N/A: Spine Lumbar [employer]ITH[employer] 12/24/2016 [id number] / / [id number] Cross Cnnctr Xpdm Sfx 5.5 Ti [id number] - [id number] Implanted:Qty : 1 on 05/10/2014 by Alban Boyd MD at [facility] Spine N/A: Spine Lumbar [employer] 6 / / Description:Load 311 April Explanted Type Area Cereal Chemist Device Identifier Shelf Expiration Date Model / Serial / Lot Screw Xpdm Fa 7.0x45mm [id number] - [id number] Implanted:Alban Morillo MD (Quantity not on file) Explanted:Qty: 1 on 05/10/2014 at [facility] Screw [employer] [id number] / / Description:Load 39 April 25, 2014 Procedures Procedure Name Priority Date/Time Associated Diagnosis Comments HEMOGLOBIN A1C Add on 05/10/2014 5:32 PM CDT from Last 3 Months or Most Recently Relevant to Health Maintenance Results * (ABNORMAL) HEMOGLOBIN A1C (05/10/2014 5:32 PM CDT) HEMOGLOBIN A1C 6.6(H) 4.1 - 6.1 % of Hgb [facility] [employer] [facility] EST. AVG GLUCOSE, A1C 143 mg/dL [facility] Comment:Based on the ADAG st udy equation. Blood 05/10/2014 5:32 PM CDT 05/12/2014 6:49 PM CDT Narrative [facility] - 05/12/2014 6:50 PM CDT If not available from last three months us Chang Kidd MD CHEMISTRY ORDERABLES Final Resul t [facility]# [id number] [address] [place] [id number] from Last 3 Months or Most Recently Relevant to Health Maintenance Insurance MEDICARE PART A AND B [facility]LY [facility] Advance Directives For more information, please contact: [phone] * Full Code (Latest Code Status on File) Date Activated Date Inactivated Comments 09/04/2015 1:43 PM 09/04/2015 9:46 PM * Full Code Date Activated Date Inactivated Comments 09/04/2015 11:57 AM 09/04/2015 1:43 PM * Full Code Date Activated Date Inactivated Comments 05/10/2014 4:06 PM 05/13/2014 12:58 PM * Full Code Date Activated Date Inactivated Comments 05/10/2014 10:26 AM 05/10/2014 4:06 PM * Full Code Date Activated Date Inactivated Comments 05/10/2014 9:40 AM 05/10/2014 10:26 AM Care Teams Exchange Teller Relationship Specialty Start Date End Date Ehsan Campos MD [address] [place], [facility] PCP - General 01/14/03
--- OUTSIDE RECORDS SUMMARY | 2024-05-12 13:48 | XMS_ITS | Clinical Summary ---
Author Organization [facility] [employer] Address [address] [place] [address] Care Team Providers Care General Office Clerk Name Role Phone Del Cid, Cipriano REESE-GUN FITTER Primary Care Provider [phone] Source Comments [facility],non-owned Affiliates and Associated Physician Practices is amultiple site organization consisting of ambulatory clinics and hospital sitesin [place], [place], [place] and [place]. This disclosure is being madepursuant to the Care Everywhere program and may not contain all information available regarding this patient. Last updated 17.[facility] [employer] Allergies Active Allergy Reactions Criticality Noted Date Comments Mirtazapine Other 04/15/2024 Medications * Be aware that medications may not be up to date on this document. Alwaysverify current medications with the patient. Medication Sig Dispensed Refills Start Date End Date Status ketorolac LS (Acular Ls) 0.4 % ophthalmic solution INSTILL 1 DROP INTO LEFT EYE 4 TIMES A DAY DIRECTED 10/29/2023 Active aspirin (Aspirin) 81 MG chew tablet 1 (one) tablet by Enteral Tube route once daily 12/17/2023 Active acetaminophen (Tylenol) 160 MG/5ML solution 31.25 mL by Enteral Tube route 3 times daily 12/16/2023 Active albuterol-ipratrop ium (Duo-Neb) 0.5-2.5 (3) MG/3ML nebulizer solution Inhale 3 mL by mouth every 6 hours as needed for Shortness of Breath or Wheezing 12/16/2023 Active Additional Information Patient taking differently:3 mL InhalationPRN, Shortness of Breath, Wheezing, Reported on 05/06/2024 insulin glargine (Lantus/Semglee) 100 units/mL pen Inject 38 (thirty eight) Units subcutaneously every morning 12/17/2023 Active insulin aspart (NovoLOG) pen Inject 0 (zero) Units to 12 (twelve) Units subcutaneously every 6 hours 12/16/2023 Active ondansetron, disintegrating, (Zofran ODT) 4 MG tablet Take 1 (one) tablet by mouth every 6 hours as needed for Nausea/Vomiting Allow tablet to dissolve on the tongue 12/16/2023 Active Additional Information Patient not taking.Reported on 05/06/2024 atorvastatin (Lipitor) 40 MG tablet 1 (one) tablet by Enteral Tube route at bedtime 12/16/2023 Active saline nasal spray (King; Baby [place]) 0.65 % nasal spray [place] 2 (two) sprays into each nostril every 4 hours 12/16/2023 Active Additional Information Patient not taking.Reported on 05/06/2024 folic acid (Folvite) 1 MG tablet 1 (one) tablet by Enteral Tube route once daily 12/17/2023 Active polyethylene glycol 3350 (Miralax) 17 g packet 17 (seventeen) g by Enteral Tube route 2 times daily 12/16/2023 Active Additional Information Patient not taking.Reported on 05/06/2024 melatonin 3 MG tablet 2 (two) tablets by Enteral Tube route at bedtime 12/16/2023 Active Additional Information Patient not taking.Reported on 05/06/2024 phenol 1.4 % 2 sprays by Mouth/Throat route every 1 hour as needed 12/16/2023 Activ e Additional Information Patient not taking.Reported on 05/06/2024 lansoprazole (Prevacid) 30 MG capsule 1 (one) capsule by Per G Tube route daily before breakfast 12/16/2023 Active doxazosin (Cardura) 1 MG tablet Take 1 (one) tablet by mouth at bedtime 04/09/2024 Active metoprolol tartrate IR (Lopressor) 25 MG tablet Take 1 (one) tablet by mouth 2 times daily Active rOPINIRole (Requip) 1 MG tablet Take 1 (one) tablet by mouth once daily Active traZODone (Desyrel) 50 MG tablet Take 1 (one) tablet by mouth at bedtime Active Active Problems Problem Noted Date Diagnosed Date Acute metabolic encephalopathy 11/18/2023 Hypophosphatemia 11/18/2023 Aspiration pneumonia 11/18/2023 Moderate protein-calorie malnutrition 11/14/2023 MARTIN (obstructive sleep apnea) 11/12/2023 Neck pain 11/04/2023 Trauma 11/04/2023 Closed odontoid fracture, initial encounter 10/25 S/P FESS (functional endoscopic sinus surgery) 0 05/22/2023 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 05/01/2023 Persistent 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 complication 05/01/2023 Type 2 diabetes mellitus wit h hyperglycemia, without long-term current use of insulin 05/01/2023 05/01/2023 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 05/01/2023 Immunologic deficiency syndrome 05/15/2022 05/01/2023 Hip pain 04/18/2022 05/01/2023 Moderate malnutrition 04/16/2022 05/01/2023 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/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 03/22/2022 05/01/19 Overview (05/01/2023): Added automatically from request for surgery [id number] Atherosclerotic heart diseas e of [place] coronary artery without angina pectoris 04/19/2020 05/01/2023 Lumbar back pain 04/19/2020 05/01/2023 Dyslipidemia 04/19/2020 05/01/2023 Gastroesophageal reflux disease 04/19/2020 05/01/2023 Sensorineural hearing loss of both ears 02/15/20 17 Tinnitus of left ear 02/14/2017 Sensorineural hearing loss 12/13/2016 Other specified hearing loss, left ear 7 Tinnitus 10/09/2016 Essential (primary) hypertension 05/11/2014 05/01/2023 Hyperlipemia 05/11/2014 05/01/2023 IHD (ischemic heart disease) 05/11/201408/2023 Spinal stenosis 05/11/2014 05/01/2023 Sleep apnea 05/11/2014 05/01/2023 Atherosclerotic heart diseas e of [place] coronary artery without angina pectoris 2013 05/01/2023 Overview (05/01/2023): Coronary arteriosclerosis in [place] artery Resolved Problems Problem Noted Date Diagnosed Date Resolved Date Bacterial pneumonia 11/18/2023 12/16/19 24 Fever 11/27/2018 12/11/2018 Encounters Date Type Department Care Team Description 05/06/2024 3:45 PM CDT Office Visit [facility] - [facility] [address] [place] [phone] Byron Robins MD Presbylarynges (Primary Dx); Presbyphonia 05/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 Refill [facility] [address] [place] [phone] Deepak Larson MD Refill Request 05/06/2024 Travel 04/11/2024 [facility] [address] [place] [phone] Deepak Larson MD Refill Request 04/01/2024 Travel 03/17/2024 Telephone [facility] [address] [place] [phone] Ritesh Duarte, artificial marble worker 03/09/2024 Telephone [facility] - Nephrology [address] [place] [phone] Tarah Kurtz, ESCOBAR Concerns from Last 3 Months Immunizations Name Administration Dates Next Due INFLUENZA VACCINE, TRIV. (AF LURIA, FLUZONE TRIVALENT; 6MO+) (IIV3) 11/24/2014,2013 INFLUENZA VACCINE, ADJUVANTE D, QUADR. (FLUAD QUADRIVALENT; 65Y+) (AIIV4) 12/09/2022 INFLUENZA VACCINE, HIGH-DOSE , QUADR. (FLUZONE HIGH-DOSE QUADRIVALENT; 65Y+), 0.7 ML (HD-IIV4) 12/07/2021 INFLUENZA VACCINE, HIGH-DOSE , TRIV. (FLUZONE HIGH-DOSE TRIVALENT; 65Y+) (HD-IIV3) 10/20/2017 PNEUMOCOCCAL PPV VACCINE 06/18/2022 iNFLUENZA VACCINE, RECOM-MORRELL, QUADR. (FLUBLOCK QUADRIVALENT; 18Y+) (RIV4) 12/08/2018 Social History Tobacco Use Types Packs/Day Years Used Date Smoking Tobacco: Former Cigarettes 1 9 Smokeless Tobacco: Never Tobacco Cessation:Counseling Given: Not Answered Comments:Quit smoking at the age of 25 Alcohol Use Standard Drinks/Week Comments No 0 (1 standard drink = 0.6 oz pur e alcohol) AUDIT-C Answer Date Recorded Q1: How often do you have a drink containing alcohol? Never 11/06/2023 Q2: How many drinks containi ng alcohol do you have on a typical day when you are drinking? Patient does not drink Q3: How often do you have si x or more drinks on one occasion? Never 11/06/2023 Overall Financial Resource Strain (CARDIA) Answe r Date Recorded How hard is it for you to pa y for the very basics like food, housing, medical care, and heating? Not hard at all 11/07/2023 [facility] [place] [facility] Occupat ional Health - Occupational Stress Questionnaire Answer Date Recorded Do you feel stress - tense, restless, nervous, or anxious, or unable to sleep at night because your mind is troubled all the time - these days? Not at all 11/07/2023 Hunger Vital Sign Answer Date Recorded Within the past 12 months, y ou worried that your food would run out before you got the money to buy more. Never true 11/07/19 24 Within the past 12 months, t he food you bought just didn't last and you didn't have money to get more. Never true 11/07/2023 PRAPARE - Transportation Answer Date Re corded In the past 12 months, has l ack of transportation kept you from medical appointments or from getting medications? No 10/25 In the past 12 months, has l ack of transportation kept you from meetings, work, or from getting things needed for daily living? No 11/07/2023 Housing Stability Vital Sign Answer [place] e Recorded In the last 12 months, was t here a time when you were not able to pay the mortgage or rent on time? No 11/07/2023 In the last 12 months, how many places have you lived? 1 11/07/2023 In the last 12 months, was t here a time when you did not have a steady place to sleep or slept in a residential (including now)? No 11/07/2023 Sex and Gender Information Value Date Recorded Sex Assigned at Not on file Gender Identity Not on file Sexual Orientation Not on file Last Filed Vital Signs Vital Sign Reading Time Taken Comments Blood Pressure 147/79 05/06/2024 3:49 PM CDT Pulse 81 05/06/2024 3:49 PM CDT Temperature 36.7 C (98.1 F) 12/16/2023 3:18 PM CDT Respiratory Rate 20 12/16/2023 3:18 PM CDT Oxygen Saturation 97% 12/16/2023 3:18 PM CDT Inhaled Oxygen Concentration 21% 11/19/2023 8 :48 PM CDT Weight 81.6 kg (180 lb) 05/06/2024 3:49 PM CDT Height 175.3 cm (5' 9 ) 05/06/2024 3:49 PM CDT Body Mass Index 26.58 05/06/2024 3:49 PM CDT Plan of Treatment Upcoming Encounters Date Type Department Care Team (Late st Contact Info) Description 05/13/2024 9:00 AM CDT Office Visit [facility] [address] [place] [phone] Honey Manrique SLP [address] [place] [address] [address] [place] [phone] 05/26/2024 10:15 AM CDT Office Visit [facility] [address] [place] [phone] Vinicius Avalos MD [address] [place] [address] [address] [place] [address] Health Maintenance Due Date Last Done Comments MEDICARE AWV 12 MONTHS 1945 HEPATITIS C SCREENING 11/28/1963 DTAP/TDAP/TD VACCINES (1 - Tdap) 1964 ZOSTER VACCINE (1 of 2) 1964 Respiratory Syncytial Virus (RSV) Vaccine Pt: or over 60 yrs (1 - 1-dose 75+ series) 2020 DIABETES RETINOPATHY SCREENING 05/01/2023 DIABETES-FOOT EXAM WITH MONOFILAMENT 05/01/2023 PNEUMOCOCCAL VACCINE 50+ (2 of 2 - PCV) 06/19/2023 06/18/2022 COVID-19 VACCINE ( season) 2023 12/09/2022, 06/15/2021, 12/21/2020, Additional history exists INFLUENZA VACCINE (#1) 2023 , 12/07/2021, 12/08/2018, Additional history exists DEPRESSION SCREENING 02/25/2024 DIABETES - URINE PROTEIN SCREENING 02/25/2024 DIABETES-HGB A1C 11/03/2024 05/03/2024, 01/2024, 11/03/2023, Additional history exists DIABETES-SERUM CREATININE 05/03/20252024, 12/16/2023, 12/14/2023, Additional history exists HEPATITIS B VACCINE Aged Out No longe r eligible based on patient's age to complete this topic HIB VACCINE Aged Out No longer eligi ble based on patient's age to complete this topic HPV VACCINE Aged Out No longer eligi ble based on patient's age to complete this topic MENINGOCOCCAL (Group B) VACCINE SHARED DECISION-MAKING Aged Out No longer eligible based on patient's age to complete this topic MENINGOCOCCAL GROUPS A/C/Y/W VACCINE Aged Out No longer eligible based on patient's age to complete this topic Medical Devices Implanted Type Area Sort Manager Device Identifier Shelf Expiration Date Model / Serial / Lot Screw 4mm 38mm Spne Jose Eleazar Ucss Ti Implanted:Qty: 1 on 11/14/2023 by Demetrius Moragn MD at [facility] N/A: Spine Cervical [employer] [id number] / / Screw 4mm 38mm Eleazar Lag Spne Jose Ucss Implanted:Qty: 1 on 11/15/2023 by Demetrius Morgan MD at [facility] N/A: Spine Cervical [employer] [id number] / / Procedures Procedure Name Priority Date/Time Associated Diagnosis Comments COMPREHENSIVE METABOLIC PANEL Routine 12/16/2023 6:56 AM CDT HEMOGLOBIN A1C OSMAR 11/06/2023 4:00 AM CDT from Last 3 Months or Most Recently Relevant to Health Maintenance Results * (ABNORMAL) COMPREHENSIVE METABOLIC PANEL (12/16/2023 6:56 AM CDT) BUN 26 7 - 26 mg/dL 12/16/2023 8:14 AM [facility] Creatinine 0.74 0.71 - 1.16 mg/dL 12/16/2023 8:14 AM [facility] Sodium 139 136 - 145 mmol/L 12/16/2023 8:14 AM [facility] Potassium 3.6 3.5 - 4.5 mmol/L 12/16/2023 8:14 AM [facility] Chloride 100 98 - 107 mmol/L 12/16/2023 8:14 AM [facility] CO2 29 22 - 29 mmol/L 12/16/2023 8:14 AM [facility] Glucose 224(H) 70 - 115 mg/dL 12/16/2023 8:14 AM [facility] Calcium 9.1 8.4 - 10.2 mg/dL 12/16/2023 8:14 AM [facility] Protein Total 6.8 6.0 - 8.3 g/dL 12/16/2023 8:14 AM [facility] Albumin 3.1(L) 3.4 - 5.0 g/dL 12/16/2023 8:14 AM [facility] Bilirubin Total 0.5 0.2 - 1.2 mg/dL 12/16/2023 8:14 AM [facility] Alkaline Phosphatase 96 40 - 150 U/L 12/16/2023 8:14 AM [facility] ALT 38 5 - 55 U/L 12/16/2023 8:14 AM [facility] AST 38(H) 5 - 34 U/L 12/16/2023 8:14 AM [facility] Anion Gap 10 6 - 16 12/16/2023 8:14 AM [facility] BUN/Creatinine Ratio 35(H) 7 - 23 12/16/2023 8:14 AM [facility] Osmolality Calculated 300(H) 275 - 295 mOsm/kg 12/16/2023 8:14 AM [facility] Albumin/Globulin Ratio 0.8(L) 1.1 - 2.3 12/16/2023 8:14 AM [facility] eGFR by CKD-EPI >90 >=90 mL/min/1.7 3 m2 12/16/2023 8:14 AM [facility] Blood BLOOD SPECIMEN / Unknown Lab Venipuncture / Unknown 12/16/2023 6:56 AM CDT 12/16/2023 7:48 AM T Ananth Murphy MEAL ATTENDANT-GUN FITTER LAB - CHEMISTRY ORDERABLES [facility] [address] [place] [phone], [facility] [phone] * (ABNORMAL) HEMOGLOBIN A1C (11/06/2023 4:00 AM [facility]) Hemoglobin A1c 7.9(H) <=5.6 % 11/06/2023 9:00 AM [facility] Estimated Average Glucose 180 mg/dL 11/06/2023 9:00 AM [facility] Comment: HbA1c Interpretation: Normal : < 5.7% Pre-diabetes: 5.7-6.4% Diabetes: Equal to or greater than 6.5% Test results diagnostic of diabetes should be repeated for confirmation. Treatment target values recommended by ADA and other clinical organizations should be used to evaluate metabolic control in patients. Reference: [place] [employer], Standards of Care in Diabetes -2020 In patients 70 years and older consider HbA1c target range of 7.0-7.5% (Reference: Jeffy Rachel et al. JAMDA. 2012) The Sebia assay for the measurement of HbA1c is a National Glycohemoglobin Standardization Program (NGSP) certified method. Blood BLOOD SPECIMEN / Unknown Venipuncture / Unknown 11/06/2023 4:00 AM CDT 11/06/2023 4:09 AM CDT José Miguel Jeronimo MD LAB - CHEMISTRY ERASMO DECKER [facility] Organization Address City/State/ZIP Co de Phone Number [address] [phone], [facility] [phone] from Last 3 Months or Most Recently Relevant to Health Maintenance Additional Health Concerns Infection Onset Date Last Indicated MRSA Hx 11/07/2023 11/07/2023 Advance Directives * Full Code (Latest Code Status on File) Date Activated Date Inactivated Comments 11/04/2023 11:12 PM 12/16/2023 8:27 PM * Full Code Date Activated Date Inactivated Comments 11/28/2018 12:22 AM 12/01/2018 1:00 PM Care Teams General Office Clerk Relationship Specialty Start Date End Date Cipriano Del Cid, MEAL ATTENDANT-GUN FITTER [address] [id number] PCP - General 12/26/22
--- OUTSIDE RECORDS SUMMARY | 2024-05-12 13:48 | XMS_ITS | CONTINUITY OF CARE DOCUMENT ---
Author Name robyn carlson Address Unknown Organization [facility] Address [address] [place] [address] Phone [phone] Care Team Providers Care Chief Gauger Name Role Phone Hiren YAP, July Unavailable [phone] BUSCHLING DO, SINAN Unavailable BUSCHLING DO, SINAN Unavailable PROBLEMS Condition Status Date Provider Notes Cardiology examination completed 4 - July Maradiaga MD CAD - s/p NATE RCA, Ramus 03/2013, s/p BMS OM1 05/14 active July Maradiaga MD HTN essential active July Maradiaga MD Dyslipidemia active July Maradiaga MD Diabetes mellitus active July Maradiaga MD GERD active July Maradiaga MD Chronic Back Pain active July Maradiaga MD Preoperative cardiovascular evaluation completed - July Maradiaga MD Immune deficiency active Isis Valverde [employer] Cardiology examination active July swenson MD ENCOUNTERS Date Type Provider Location Encounter Diag nosis - In-person encounter Office Visit July Maradiaga MD [facility] - In-person encounter Office Visit July Maradiaga MD [facility] Cardiology examination - In-person encounter Office Visit July Maradiaga MD [facility] - In-person encounter Office Visit July Maradiaga MD [facility] Preoperative cardiovascular evaluation - In-person encounter Office Visit July Maradiaga MD [facility] Immune deficiency - In-person encounter Office Visit July Maradiaga MD [facility] - In-person encounter Office Visit July Maradiaga MD [facility] - In-person encounter Office Visit July Maradiaga MD [facility] CAD - s/p NATE RCA, Ramus 03/2013, s/p BMS OM1 05/14 - In-person encounter Office Visit July Maradiaga MD [facility] Cardiology examination - In-person encounter Office Visit July Maradiaga MD [facility] CAD - s/p NATE RCA, Ramus 03/2013, s/p BMS OM1 05/14HTN essentialDyslipidemiaDiabetes mellitusGERDChronic Back Pain VITAL SIGNS Date Observation Value Provider Body Mass Index (Ratio) 25.40 kg/m2 Ron Maradaiga MD blood pressure, diastolic 82 mm[Hg] [place] Hightower blood pressure, systolic 142 mm[Hg] Jvoanna Hightower oxygen saturation, oximetry 98 % Katelyn Hightower pulse rate 82 /min Katelyn Hightower respiratory rate E&M 12 /min Katelyn Hightower weight E&M 172 [lb_av] Katelyn Hightower height E&M 69 [in_i] Katelyn Hightower blood pressure, cuff size regular [place] Hightower Body Mass Index (Ratio) 27.79 kg/m2 Ron Maradiaga MD blood pressure, diastolic 73 mm[Hg] Li nkLogalvin blood pressure, systolic 126 mm[Hg] Reshma kLog blood pressure, cuff size regular Ta femi Horvath blood pressure, diastolic 73 mm[Hg] Ta bitha Horvath blood pressure, systolic 126 mm[Hg] Tab itha [place] oxygen saturation, oximetry 96 % Liza [place] respiratory rate E&M 12 /min Liza Horvath pulse rate 94 /min Liza Horvath weight E&M 188.2 [lb_av] Liza Horvath height E&M 69 [in_i] Liza Horvath Body Mass Index (Ratio) 29.09 kg/m2 Tk Carvajal blood pressure, diastolic 63 mm[Hg] Li ic blood pressure, systolic 101 mm[Hg] Reshma blood pressure, cuff size regular Hussein et blood pressure, diastolic 63 mm[Hg] Ja rret blood pressure, systolic 101 mm[Hg] Jar ret pulse rate 94 /min Mina oxygen saturation, oximetry 95 % respiratory rate E&M 16 /min Mina weight E&M 197 [lb_av] Mina y height E&M 69 [in_i] [facility] Body [facility] (Ratio) 25.40 kg/m2 Ron Maradiaga MD blood pressure, diastolic 63 mm[Hg] Aylin nkLogalvin blood pressure, systolic 106 mm[Hg] Reshma kLogic blood pressure, diastolic 63 mm[Hg] [place] Johnson blood pressure, systolic 106 mm[Hg] Any federica Alex oxygen saturation, oximetry 97 % Anuradha Alex pulse rate 92 /min Anuradha Alex blood pressure, cuff size large An farhana Alex weight E&M 172 [lb_av] Anuradha Alex height E&M 69 [in_i] Anuradha Alex Body Mass Index (Ratio) 27.91 kg/m2 Philip Licona blood pressure, diastolic 66 mm[Hg] Ch astity Jordan blood pressure, systolic 120 mm[Hg] Fabi stity [place] oxygen saturation, oximetry 93 % Chastity Jordan pulse rate 88 /min Chastity Jordan weight E&M 189 [lb_av] Chastity Jordan respiratory rate E&M 16 /min Chastit y Jordan height E&M 69 [in_i] Chastity Jordan Body Mass Index (Ratio) 27.91 kg/m2 Rebecca Martinez blood pressure, diastolic 70 mm[Hg] Aylin nkLogalvin blood pressure, systolic 122 mm[Hg] Reshma kLogic blood pressure, cuff size regular Cy zhao Linares blood pressure, diastolic 70 mm[Hg] Cy nthia Vijay blood pressure, systolic 122 mm[Hg] Helen magdielfederica Linares oxygen saturation, oximetry 97 % Linh Linares respiratory rate E&M 16 /min Linhjosemanuel Linares pulse rate 67 /min Linh Campbel l weight E&M 189 [lb_av] Linh Campbel l height E&M 69 [in_i] Linh Campbel l Body Mass Index (Ratio) 27.32 kg/m2 Jona Nino blood pressure, cuff size large Ke rri Beenenfelder blood pressure, diastolic 60 mm[Hg] Ke rri Atiliouenenfelder blood pressure, systolic 104 mm[Hg] Vin ri Alfredoelder oxygen saturation, oximetry 97 % Geni Fuenteselder respiratory rate E&M 16 /min Geni Jacobson ruenenfelder pulse rate 61 /min Geni Fuentese lder weight E&M 185 [lb_av] Geni Beeneclementee lder height E&M 69 [in_i] Geni Lauren [facility] Body Mass Index (Ratio) 27.26 kg/m2 Ron Maradiaga MD blood pressure, diastolic 60 mm[Hg] Mimi Dunbarenson blood pressure, systolic 128 mm[Hg] Miguelina Beverly oxygen saturation, oximetry 98 % Daniel Beverly respiratory rate E&M 16 /min Avtar Dunbarenson pulse rate 73 /min Daniel Munoz nehemiah weight E&M 184.6 [lb_av] Daniel Dunbar chilango height E&M 69 [in_i] Daniel Munoz nehemiah Body Mass Index (Ratio) 28.20 kg/m2 Jona milo Kyte blood pressure, resting Yes Brit rubi Block pulse rate 65 /min Chelsy Block blood pressure, diastolic 70 mm[Hg] Br ittany Block blood pressure, systolic 120 mm[Hg] Elis ttany Block oxygen saturation, oximetry 97 % Chelsy Block height E&M 69 [in_i] Chelsy Block weight E&M 191 [lb_av] Chelsy Block respiratory rate E&M 16 /min Marshal Chowdary ALLERGIES No Known Drug Allergies HISTORY OF MEDICATION USE Medication Status Instructions Dates Provider Indications Com ments duloxetine 20 mg capsule,delayed release(DR/EC) active Liza Horvath finasteride 5 mg tablet completed - July Maradiaga MD folic acid 1 mg tablet completed - July Maradiaga MD midodrine 5 mg tablet completed - July Maradiaga MD Jardiance 10 mg tablet completed - July Maradiaga MD Jardiance 10 mg tablet completed - Liza Horvath clopidogrel 75 mg tablet completed TAKE 1 TABLET BY MOUTH EVERY DAY - July Maradiaga MD Humalog KwikPen Insulin 100 unit/mL insulin pen active Isis Bernicemiglia [employer] fluticasone propionate 50 mcg/actuation spray,suspensio n active as needed [facility] Advair HFA 45-21 mcg/actuation HFA aerosol inhaler completed - July Maradiaga MD nortriptyline 10 mg capsule completed - [facility] folic acid 1 mg tablet active Take 1 tablet by mouth once a day [facility] albuterol sulfate 90 mcg/actuation HFA aerosol inhaler active INHALED 1 PUFF EVERY 4 HOURS NEEDED FOR SHORTNESS OF BREATH OR WHEEZING Isis Queenmicarlos [employer]ER[employer] dexamethasone 6 mg tablet completed TAKE 1 TABLET ORALLY DAILY - [facility] clopidogrel 75 mg tablet completed TAKE 1 TABLET BY MOUTH EVERY DAY - Isis Queenmiglnegrita WHEELERP pantoprazole 40 mg tablet,delayed release (DR/EC) active TAKE 1 TABLET BY MOUTH EVERY DAY [facility] aspirin 81 mg tablet,chewable active Take 1 tablet once a day Hazel Damian RN Silvadene 1% cream completed Apply twice a day - July Maradiaga MD Plavix 75 mg tablet completed 1 tablet once a day - [place] Feosol 325 mg (65 mg iron) tablet completed 1 tablet once a day - Isis AGUILERA [facility] MAGNESIUM TABLET completed 1 tab daily - Daniel Beverly EQL OMEGA 3 FISH OIL CAPSULE completed HOLD after stent d/t groin bruise - Isis AGUILERA ASCRIPTIN 325 MG ORAL TABLET completed 1 tab daily - Geni Leidy metformin 500 mg tablet completed Take 2 tablet by mouth twice a day - Isis WHEELERP #360, 90 days supply, Prescribed by YANIRA GENAO, Filled 03/18/2020 pioglitazone 30 mg tablet completed Take 1 tablet by mouth once a day - Isis WHEELERP #90, 90 days supply, Prescribed by YANIRA GENAO, Filled 03/20/2020 oxybutynin chloride 5 mg tablet completed Take 1 tablet by mouth twice a day - Linh Linares #180, 90 days supply, Prescribed by YANIRA GENAO, Filled 03/20/2020 pantoprazole 40 mg tablet,delayed release (/EC) completed 1 tablet once a day - July Maradiaga MD #90, 90 days supply, Prescribed by YANIRA GENAO, Filled 03/20/2020 lisinopril 5 mg tablet completed Take 1 tablet by mouth once a day - Liza Horvath #90, 90 days supply, Prescribed by YANIRA GENAO, Filled 03/20/2020 glimepiride 2 mg tablet completed Take 1 tablet by mouth every morning - Isis AGUILERA #90, 90 days supply, Prescribed by YANIRA GENAO, Filled 03/20/2020 gabapentin 300 mg capsule active Take 2 capsule by mouth three times a day Isis Ventimiglia [employer] #90, 90 days supply, Prescribed by YANIRA GENAO, Filled 03/20/2020 finasteride 5 mg tablet completed Take 1 tablet by mouth once a day - July Maradiaga MD #90, 90 days supply, Prescribed by YANIRA GENAO, Filled 03/20/2020 doxazosin 8 mg tablet active Take 1 tablet by mouth once a day Linh Linares #90, 90 days supply, Prescribed by YANIRA GENAO, Filled 03/20/2020 carvedilol 6.25 mg tablet completed Take 1 tablet by mouth every twelve hours - July Maradiaga MD #180, 90 days supply, Prescribed by YANIRA GENAO, Filled 03/20/2020 atorvastatin 20 mg tablet active Take 1 tablet by mouth once a day Linh Linares #90, 90 days supply, Prescribed by YANIRA GENAO, Filled 03/20/2020 SOCIAL HISTORY Date Observation Value Provider drug use no July Maradiaga MD alcohol use no July Maradiaga MD smoking status Never smoker July swenson MD drug use no July Maradiaga MD alcohol use no July Maradiaga MD smoking status Never smoker July swenson MD drug use no July Maradiaga MD alcohol use no July Maradiaga MD smoking status Never smoker July swenson MD social history reviewed E&M revi ewed - no changes required July Maradiaga MD social history E&M Smoking Histo ry: P atient has never smoked. July Maradiaga MD drug use no Isis Ventimig jaime [employer] alcohol use no Isis Ventimig jaime [employer] smoking status Never smoker Isis castro [employer] social history reviewed E&M revi ewed - no changes required July Maradiaga MD social history E&M S moking History: P juan has never smoked. July Maradiaga MD smoking status Never smoker Alix Jacksonminda rivas social history E&M S moking History: P juan has never smoked. July Maradiaga MD social history reviewed E&M revi ewed - no changes required July Maradiaga MD smoking status Never smoker Linh Carlos moreno social history E&M S moking History: P juan has never smoked. July Maradiaga MD social history reviewed E&M revi ewed - no changes required July Maardiaga MD smoking status Never smoker Geni lr social history E&M S moking History: P juan has never smoked. July Maradiaga MD social history reviewed E&M revi ewed - no changes required July Maradiaga MD smoking status Never smoker Daniel Islas tanashraddha number of grandchildren July Maradiaga MD social history E&M S moking History: Ino martinez has never smoked. July Maradiaga MD social history reviewed E&M revi ewed - no changes required July Maradiaga MD alcohol use no Chelsy Block smoking status Never smoker Chelsy Bloc k FUNCTIONAL STATUS Date Observation Value Provider HRA, CV Assess/Plan, Angina (inactive) Management Plan continue current therapy July Maradiaga MD HRA, CV Assess/Plan, Angina (inactive) Management Plan continue current therapy July Maradiaga MD HRA, CV Assess/Plan, Angina (inactive) Management Plan continue current therapy Isis Valverde [employer] HRA, CV Assess/Plan, Angina (inactive) Management Plan continue current therapy July Maradiaga MD HRA, CV Assess/Plan, Angina (inactive) Management Plan continue current therapy July Maradiaga MD HRA, CV Assess/Plan, Angina (inactive) Management Plan continue current therapy Kilo Nino HRA, CV Assess/Plan, Angina (inactive) Management Plan continue current therapy July Maradiaga MD HRA, CV Assess/Plan, Angina (inactive) Management Plan continue current therapy Kilo Nino INSURANCE PROVIDERS Payer name Policy type / Coverage type [facility] democrat ID [employer] [id number] [place] MEDIC[employer] Medicare [id number] ADVANCE DIRECTIVES Name Date DISCUSSED - NO DECISION MADE TREATMENT PLAN Date Name Performer [id number],C, H is updated medication list for this problem includes: Pantoprazole 40 Mg Tablet,delayed Release (dr/ec) (Pantoprazole) ..... Take 1 tablet by mouth every day July Maradiaga MD [id number],C,w c per pt His updated medication list for this problem includes: Humalog Kwikpen Insulin 100 Unit/ml Insulin Pen (Insulin lispro) Lisinopril 5 Mg Tablet (Lisinopril) ..... Take 1 tablet by mouth once a day Aspirin 81 Mg Tablet,chewable (Aspirin) ..... Take 1 tablet once a day July Maradiaga MD [id number],C, H is updated medication list for this problem includes: Atorvastatin 20 Mg Tablet (Atorvastatin) ..... Take 1 tablet by mouth once a day July Maradiaga MD [id number],C,S till experiencing back pain and has pain with walking uJly Maradiaga MD [id number],C,L ast stent 04/2020. He has been chest pain free. The ECHO done today appeared normal. His updated medication list for this problem includes: Lisinopril 5 Mg Tablet (Lisinopril) ..... Take 1 tablet by mouth once a day Carvedilol 6.25 Mg Tablet (Carvedilol) ..... Take 1 tablet by mouth every twelve hours Aspirin 81 Mg Tablet,chewable (Aspirin) ..... Take 1 tablet once a day July Maradiaga MD [id number],C,H e checks BP everyday, runs around 111/66. Continue monitoring His updated medication list for this problem includes: Lisinopril 5 Mg Tablet (Lisinopril) ..... Take 1 tablet by mouth once a day Carvedilol 6.25 Mg Tablet (Carvedilol) ..... Take 1 tablet by mouth every twelve hours Aspirin 81 Mg Tablet,chewable (Aspirin) ..... Take 1 tablet once a day Doxazosin 8 Mg Tablet (Doxazosin) ..... Take 1 tablet by mouth once a day July Maradiaga MD [id number],C, H is updated medication list for this problem includes: Atorvastatin 20 Mg Tablet (Atorvastatin) ..... Take 1 tablet by mouth once a day Isis Valverde [facility] [id number],C,n ow on insulin in setting of high dose steroids T he following medications were removed from the medication list: Glimepiride 2 Mg Tablet (Glimepiride) ..... Take 1 tablet by mouth every morning Pioglitazone 30 Mg Tablet (Pioglitazone) ..... Take 1 tablet by mouth once a day Metformin 500 Mg Tablet (Metformin) ..... Take 2 tablet by mouth twice a day His updated medication list for this problem includes: Humalog Kwikpen Insulin 100 Unit/ml Insulin Pen (Insulin lispro) Lisinopril 5 Mg Tablet (Lisinopril) ..... Take 1 tablet by mouth once a day Aspirin 81 Mg Tablet,chewable (Aspirin) ..... Take 1 tablet once a day Isis Valverde [facility] [id number],C,c ontrolled H is updated medication list for this problem includes: Lisinopril 5 Mg Tablet (Lisinopril) ..... Take 1 tablet by mouth once a day Carvedilol 6.25 Mg Tablet (Carvedilol) ..... Take 1 tablet by mouth every twelve hours Aspirin 81 Mg Tablet,chewable (Aspirin) ..... Take 1 tablet once a day Doxazosin 8 Mg Tablet (Doxazosin) ..... Take 1 tablet by mouth once a day Isis Valverde [facility] [id number],C,L ast stent 04/2020. He has been chest pain free. He has SOB with activity, but deconditioned d/t immune disorder. He will come off plavix as has been on for 2 years post stent will remain on asa T he following medications were removed from the medication list: Clopidogrel 75 Mg Tablet (Clopidogrel) ..... Take 1 tablet by mouth every day His updated medication list for this problem includes: Lisinopril 5 Mg Tablet (Lisinopril) ..... Take 1 tablet by mouth once a day Carvedilol 6.25 Mg Tablet (Carvedilol) ..... Take 1 tablet by mouth every twelve hours Aspirin 81 Mg Tablet,chewable (Aspirin) ..... 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 He is following at [place]. He is now recieving weekly high dose steroids at the hospital. We will plan to monitor. Given this will do f/u echo prior to next visit to monitor. O rders: 9 9214 MOD 30-39min (CPT-26785) C omplete Echo (CPT-01673) Isis Valverde [facility] [id number],C, C ontinues on Metformin, Pioglitazone and Glimepiride. Reduced intake of carbohydrates and sugars advised. A1c was 6.6 per pt. July Maradiaga MD [id number],S, C ontinues on Atorvastatin. We aim for an LDL <70. Jluy Maradiaga MD [id number],S, H is muscles continue to be weak. He continues to have discomfort and limited mobility. July Maradiaga MD [id number],S, B lood pressure control is satisfactory. July Maradiaga MD [id number],S, H e denies chest pain and SOB. Continues on aspirin and Plavix. July Maradiaga MD [id number],C,H e denies chest pain and SOB. Continues on aspirin and Plavix. July Maradiaga MD [id number],C,S /P successful back surgery. Is lifting weights to restrengthen his weakened muscles. July Maradiaga MD [id number],S, C ontinues on Omeprazole. July Maradiaga MD [id number],S, C ontinues on Metformin, Pioglitazone and Glimepiride. Reduced intake of carbohydrates and sugars advised. July Maradiaga MD [id number],S, C ontinues on Atorvastatin. We aim for an LDL <70. July Maradiaga MD [id number],S, B lood pressure control is satisfactory. July Maradiaga MD Cardiology: H is updated medication list for this problem includes: Pantoprazole 40 Mg Tablet,delayed Release (dr/ec) (Pantoprazole) ..... Take 1 tablet by mouth every day July Maradiaga MD Cardiology:Managed b sina PCP Salvador moreno controlled per patient His updated medication list for this problem includes: Humalog Kwikpen Insulin 100 Unit/ml Insulin Pen (Insulin lispro) Lisinopril 5 Mg Tablet (Lisinopril) ..... Take 1 tablet by mouth once a day Aspirin 81 Mg Tablet,chewable (Aspirin) ..... Take 1 tablet once a day July Maradiaga MD Cardiology: B P today: 142/82 P rior BP: 126/73 (07/09/2023) His updated medication list for this problem includes: Aspirin 81 Mg Tablet,chewable (Aspirin) ..... Take 1 tablet once a day Doxazosin 8 Mg Tablet (Doxazosin) ..... Take 1 tablet by mouth once a day July Maradiaga MD Cardiology: C hest pain free. Effort tolerance stable. No use of NTG since last visit. C ontinue statin for primary prevention of cardiovascular disease. July Maradiaga MD Cardiology:Well cont rolled per patient His updated medication list for this problem includes: Humalog Kwikpen Insulin 100 Unit/ml Insulin Pen (Insulin lispro) Lisinopril 5 Mg Tablet (Lisinopril) ..... Take 1 tablet by mouth once a day Aspirin 81 Mg Tablet,chewable (Aspirin) ..... Take 1 tablet once a day July Maradiaga MD Cardiology: H is updated medication list for this problem includes: Pantoprazole 40 Mg Tablet,delayed Release (dr/ec) (Pantoprazole) ..... Take 1 tablet by mouth every day July Maradiaga MD Cardiology:Continue statin for primary prevention of cardiovascular disease. July Maradiaga MD Cardiology: T he following medications were removed from the medication list: Carvedilol 6.25 Mg Tablet (Carvedilol) ..... Take 1 tablet by mouth every twelve hours Lisinopril 5 Mg Tablet (Lisinopril) ..... Take 1 tablet by mouth once a day His updated medication list for this problem includes: Aspirin 81 Mg Tablet,chewable (Aspirin) ..... Take 1 tablet once a day Doxazosin 8 Mg Tablet (Doxazosin) ..... Take 1 tablet by mouth once a day BP today: 126/73 P rior BP: 101/63 (05/07/2023) July Maradiaga MD Cardiology:Chest hugh n free. Effort tolerance stable. No use of NTG since last visit. C ontinue statin for primary prevention of cardiovascular disease. July Maradiaga MD Cardiology July Wang Cardiology: H is updated medication list for this problem includes: Atorvastatin 20 Mg Tablet (Atorvastatin) ..... Take 1 tablet by mouth once a day July Maradiaga MD Cardiology:Well cont rolled H is updated medication list for this problem includes: Lisinopril 5 Mg Tablet (Lisinopril) ..... Take 1 tablet by mouth once a day Carvedilol 6.25 Mg Tablet (Carvedilol) ..... Take 1 tablet by mouth every twelve hours Aspirin 81 Mg Tablet,chewable (Aspirin) ..... Take 1 tablet once a day Doxazosin 8 Mg Tablet (Doxazosin) ..... Take 1 tablet by mouth once a day BP today: 101/63 P rior BP: 106/63 (05/15/2022) July Maradiaga MD Cardiology:Following with neurologist at [facility] and [facility] July Maradiaga MD Cardiology:Stable, n o angina, resume asa and plavix per surgeon. July Maradiaga MD Cardiology: H is updated medication list for this problem includes: Pantoprazole 40 Mg Tablet,delayed Release (dr/ec) (Pantoprazole) ..... Take 1 tablet by mouth every day July Maradiaga MD Cardiology:wc per pt His updated medication list for this problem includes: Humalog Kwikpen Insulin 100 Unit/ml Insulin Pen (Insulin lispro) Lisinopril 5 Mg Tablet (Lisinopril) ..... Take 1 tablet by mouth once a day Aspirin 81 Mg Tablet,chewable (Aspirin) ..... Take 1 tablet once a day July Maradiaga MD Cardiology: H is updated medication list for this problem includes: Atorvastatin 20 Mg Tablet (Atorvastatin) ..... Take 1 tablet by mouth once a day July Maradiaga MD Cardiology:Still exp eriencing back pain and has pain with walking July Maradiaga MD Cardiology:Last sten t 04/2020. He has been chest pain free. The ECHO done today appeared normal. His updated medication list for this problem includes: Lisinopril 5 Mg Tablet (Lisinopril) ..... Take 1 tablet by mouth once a day Carvedilol 6.25 Mg Tablet (Carvedilol) ..... Take 1 tablet by mouth every twelve hours Aspirin 81 Mg Tablet,chewable (Aspirin) ..... Take 1 tablet once a day July Maradiaga MD Cardiology:He checks BP everyday, runs around 111/66. Continue monitoring His updated medication list for this problem includes: Lisinopril 5 Mg Tablet (Lisinopril) ..... Take 1 tablet by mouth once a day Carvedilol 6.25 Mg Tablet (Carvedilol) ..... Take 1 tablet by mouth every twelve hours Aspirin 81 Mg Tablet,chewable (Aspirin) ..... Take 1 tablet once a day Doxazosin 8 Mg Tablet (Doxazosin) ..... Take 1 tablet by mouth once a day July Maradiaga MD Cardiology: H is updated medication list for this problem includes: Atorvastatin 20 Mg Tablet (Atorvastatin) ..... Take 1 tablet by mouth once a day Isismarissa Valverde [facility] Cardiology:now on in [facility] in setting of high dose steroids T he following medications were removed from the medication list: Glimepiride 2 Mg Tablet (Glimepiride) ..... Take 1 tablet by mouth every morning Pioglitazone 30 Mg Tablet (Pioglitazone) ..... Take 1 tablet by mouth once a day Metformin 500 Mg Tablet (Metformin) ..... Take 2 tablet by mouth twice a day His updated medication list for this problem includes: Humalog Kwikpen Insulin 100 Unit/ml Insulin Pen (Insulin lispro) Lisinopril 5 Mg Tablet (Lisinopril) ..... Take 1 tablet by mouth once a day Aspirin 81 Mg Tablet,chewable (Aspirin) ..... Take 1 tablet once a day Isis Valverde [facility] Cardiology:controlle d H is updated medication list for this problem includes: Lisinopril 5 Mg Tablet (Lisinopril) ..... Take 1 tablet by mouth once a day Carvedilol 6.25 Mg Tablet (Carvedilol) ..... Take 1 tablet by mouth every twelve hours Aspirin 81 Mg Tablet,chewable (Aspirin) ..... Take 1 tablet once a day Doxazosin 8 Mg Tablet (Doxazosin) ..... Take 1 tablet by mouth once a day Isismarissa Langfordcarlos [facility] Cardiology:Last sten t 04/2020. He has been chest pain free. He has SOB with activity, but deconditioned d/t immune disorder. He will come off plavix as has been on for 2 years post stent will remain on asa T he following medications were removed from the medication list: Clopidogrel 75 Mg Tablet (Clopidogrel) ..... Take 1 tablet by mouth every day His updated medication list for this problem includes: Lisinopril 5 Mg Tablet (Lisinopril) ..... Take 1 tablet by mouth once a day Carvedilol 6.25 Mg Tablet (Carvedilol) ..... Take 1 tablet by mouth every twelve hours Aspirin 81 Mg Tablet,chewable (Aspirin) ..... 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 He is following at [place]. He is now recieving weekly high dose steroids at the hospital. We will plan to monitor. Given this will do f/u echo prior to next visit to monitor. O rders: 9 9214 MOD 30-39min (CPT-84715) C omplete Echo (CPT-46100) Isismarissa Valverde [facility] Cardiology: C ontinues on Metformin, Pioglitazone and Glimepiride. Reduced intake of carbohydrates and sugars advised. A1c was 6.6 per pt. July Maradiaga MD Cardiology: C ontinues on Atorvastatin. We aim for an LDL <70. July Maradiaga MD Cardiology: H is muscles continue to be weak. He continues to have discomfort and limited mobility. July Maradiaga MD Cardiology: B lood pressure control is satisfactory. July Maradiaga MD Cardiology: Terell rivas denies chest pain and SOB. Continues on aspirin and Plavix. July Maradiaga MD Cardiology follow up :He denies chest pain and SOB. Continues on aspirin and Plavix. July Maradiaga MD Cardiology follow up :S/P successful back surgery. Is lifting weights to restrengthen his weakened muscles. July Maradiaga MD Cardiology follow up : C ontinues on Omeprazole. July Maradiaga MD Cardiology follow up : C ontinues on Metformin, Pioglitazone and Glimepiride. Reduced intake of carbohydrates and sugars advised. July Maradiaga MD Cardiology follow up : C ontinues on Atorvastatin. We aim for an LDL <70. July Maradiaga MD Cardiology follow up : B lood pressure control is satisfactory. July Maradiaga MD [facility] Follow up :Effort tolerance limited. Planned for surgery. [facility] Follow up :Continues on Metformin, Pioglitazone and Glimepiride. Reduced intake of carbohydrates and sugars advised. [facility] Follow up :Continues on Atorvastatin. We aim for an LDL <70. [facility] Follow up :Blood pressure control is satisfactory. [facility] Follow up :He is planned for lumbar spine surgery on June 13, 2020. He needs to have at least 30 days on DAPT with Aspirin and Plavix which would be June 10, 2020. If he needs to hold the Plavix for more than 3 days prior to the procedure, it will need to be delayed. [facility] Follow up :s/p recent intervention with BMS to the OM1. His groin is bruised and painful with skin breakdown due to the adhesive tape used. His effort tolerance is limited due to his back pain. He is planned for lumbar spine surgery on June 13, 2020. He needs to have at least 30 days on DAPT with Aspirin and Plavix which would be June 10, 2020. If he needs to hold the Plavix for more than 3 days prior to the procedure, it will need to be delayed. [facility] :Symptoma tic with pain. Planned for surgery which is on hold until after cardiac cath. July Maradiaga MD Cardiology :Continue s on Atorvastatin. We aim for an LDL <70. Will check lipid panel. July Maradiaga MD Cardiology :Continue s on Metformin, Pioglitazone and Glimepiride. Reduced intake of carbohydrates and sugars advised. July Maradiaga MD Cardiology :Blood pressure contr ol is satisfactory. July Maradiaga MD Cardiology :Stress t est abnormal. Cath will be arranged. Patient is NOT cleared. July Maradiaga MD Cardiology :Recent s tress test abnormal. As he is planned for back surgery, he needs to undergo cardiac cath prior to the surgery. This was discussed with the patient and he is agreeable. The risks and benefits of the procedure, including but not limited the risk of heart attack, , stroke, bleeding, kidney failure, and loss of limb as well as the alternative of continued medical therapy, stress testing or bypass surgery were discussed with the patient and any present family members and the patient wishes to proceed with cardiac cath and stenting. The patient and family had opportunity to discuss this with us. Written material including informed consent was given out. July Maradiaga MD Cardiology:Continues on Omeprazo le. [facility]:Continues on Metformin, Pioglitazone and Glimepiride. Reduced intake of carbohydrates and sugars advised. [facility]:Continues on Atorvastatin. We aim for an LDL <70. [facility]:Blood pressure contro l is satisfactory. [facility]:History o f CAD and stents. He is planned for back surgery therefore will arrange echocardiogram and stress test [facility]:Symptomat ic with pain. Planned for surgery. [facility]:History o f CAD and stents. He is planned for back surgery therefore will arrange echocardiogram and stress test. He continues on Aspirin 325mg daily which will likely be reduced to 81mg daily at his next appointment. [facility] Date Name Complete Echo Cardiac Cath - Left - GC PROTHROMBIN TIME WIT H INR LIPID PANEL CBC (INCLUDES DIFF/P LT) BASIC METABOLIC PANE L W/EGFR Stress Regadenoson Complete Echo HISTORY OF PROCEDURES Procedure Date Procedure Name Provider Procedure Notes S tatus Complex e/m visit add on July Maradiaga MD completed EKG July Maradiaga MD complet ed EKG July Maradiaga MD complet ed EKG July Maradiaga MD complet ed EKG July Maradiaga MD complet ed EKG July Maradiaga MD complet ed EKG July Maradiaga MD complet ed EKG July Maradiaga MD complet ed
== END 2024-05-12 12:21 | disposition home or self-care (01) ==
PROVIDERS: PCP Family Medicine; Visit Provider Nurse Practitioner Family
DX: M25.512 Pain in left shoulder (principal); S12.110A Anterior displaced Type II dens fracture, initial encounter for closed fracture
CPT/HCPCS: 73030; 77080

== ENCOUNTER 2024-06-17 09:17 | Outpatient (CLI) | payer MEDICARE, OTHER, SELFPAY ==
--- NOTE | ~2024-06-17 | MR_ITS ---
MRI of the left shoulder Technique: Axial proton-density fat-sat images, coronal proton density fat-sat and T2 fat-sat images, and sagittal T1-weighted and T2 fat-sat images were acquired. Clinical History: Pain Findings: There is mild AC joint degenerative change. Coracoclavicular, coracoacromial, and coracohum eral ligaments are intact. There is a 1.9 x 1.4 cm full-thickness tear at the distal supraspinatus tendon insertion. Infraspinat us tendon is intact. Subscapularis tendon intact. Tendon of the long head of the biceps is intact. No definite labral tear is seen. There is thickening and increased signal inferior glenohumeral ligament. No degenerative change or ef fusion of the glenohumeral joint. There is minimal fluid in the subacromial/subdeltoid bursa. No musc le atrophy or edema. Impression: 1.9 x 1.4 cm full-thickness tear at the distal supraspinatus tendon insertion. Thickening and increased signal of the inferior glenohumeral ligament suggests adhesive capsulitis. Reviewed, dictated and finalized at [facility]. Impression: 1.9 x 1.4 cm full-thickness tear at the distal supraspinatus tendon insertion. Thickening and increased signal of the inferior glenohumeral ligament suggests adhesive capsulitis.
--- OUTSIDE RECORDS SUMMARY | 2024-06-17 10:00 | XMS_ITS | Encounter Summary ---
Author Organization [facility] Address [address] [place] [address] Care Team Providers Care Mail Order Biller Name Role Phone Ehsan Campos MD Primary Care Provider [phone] Encounter Details Date Type Department Care Team (Late st Contact Info) Description 06/27/2006 Outpatient Historical [facility]) [address] 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
--- OUTSIDE RECORDS SUMMARY | 2024-06-17 10:00 | XMS_ITS | Continuity of Care Document ---
Author Organization [facility] Address [address] [place] [address] Phone Care Team Providers Care Radiosonde Operator Name Role Phone Makeda Haynes Unavailable Unavailable Procedures Procedure Date Eye Exam & Treatment Refraction Eye Exam & Treatment Refraction Eye Exam & Treatment Refraction Advance Directives Directive Yes / No Effective Date File Name No Information Encounters Encounter Description Practice Location Reason(s) For Visit Diagnoses Date Provider Providers Copied on Encounter [facility], [address] [place] [address] [address], [place], [place], [id number], tel:[phone] [facility] No Information June-0 4-201 0 Ivy Ashford. [address] , [address], [place], [place], [facility], [place]. tel:[phone] [facility], [address] [place] [address] [address], [place], [place], [id number], tel:[phone] [facility] No Information June-0 1-200 9 Ivy Ashford. [address] , [address], [place], [address], [place]. tel:[phone] [facility], [id number] [place] [address] [address], [place], [place], [id number], tel:[phone] [facility] No Information Apr- 4-200 8 Ivy Ashford. [address] , [address], [place], [address], [place]. tel:[phone] Family History Family Member Type Diagnosis Age At Onset No Information Payers Payer name Insurance type Covered libertarian ID Authoriza tion(s) No Information Social History Type Description Quantity Date Captured Comments Sex Male Smoking Status No Information Chief Complaint And Reason For Visit No Information Reason For Referral Reason For Referral No Information History Of Present Illness Encounter Date Complaint History Of Prese nt Illness No Information Functional Status Date Functional Assessmen t No Information Instructions Date Instruction Additional Infor mation No Information Assessments Type Assessment Date No Information Patient Care Teams Name Effective Dates (start - stop) Status Members No Information
--- OUTSIDE RECORDS SUMMARY | 2024-06-17 10:00 | XMS_ITS | Clinical Summary ---
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 Gender Identity Not on file Sexual Orientation [...] 11/29/2018, 05/10/2014 Medical Devices Implanted Type Area Copy Chaser Device Identifier Shelf Expiration Date Model / Serial / Lot Rick Xpdm Crv W/Line 75mm [id number] - [id number] Implanted:Qty : 2 on 05/10/2014 by Alban Boyd MD at [facility] Rick N/A: Spine Lumbar [employer] 5 / / Description:Load 312 April 24 Screw Set Inner 1797-22-000 - [id number] Implanted:Qty : 6 on 05/10/2014 by Alban Boyd MD at [facility] Screw [employer] 0 / / Description:Load 39 2014 Screw Xpdm Fa 6.0x45mm [id number] - [id number] Implanted:Qty : 1 on 05/10/2014 by Alban Boyd MD at [facility] Screw [employer] 5 / / Description:Load 39 April 25, 2014 Screw Xpdm Fa 7.0x45mm [id number] - [id number] Implanted:Qty : 5 on 05/10/2014 by Alban Boyd MD at [facility] Screw [employer] 5 / / Description:Load 39 2014 Sealant Floseal W/ Adptr 10ml [id number] - [id number] Implanted:Qty : 1 on 05/10/2014 by Alban Boyd MD at [facility] Sealant N/A: Back [employer] 07/24/2015 [id number] / / [id number] Sealant Floseal W/ Adptr 10ml [id number] - [id number] Implanted:Qty : 1 on 09/04/2015 by Aixa Tamayo MD at [facility] Sealant N/A: Spine Lumbar [employer] 12/24/2016 [id number] / / [id number] Cross Cnnctr Xpdm Sfx 5.5 Ti [id number] - [id number] Implanted:Qty : 1 on 05/10/2014 by Alban Boyd MD at [facility] Spine N/A: Spine Lumbar [employer] 6 / / Description:Load 311 April Explanted Type Area Copy Chaser Device Identifier Shelf Expiration Date Model / Serial / Lot Screw Xpdm Fa 7.0x45mm [id number] - [id number] Implanted:Alban Morillo MD (Quantity not on file) Explanted:Qty: 1 on 05/10/2014 at [facility] Screw [employer] [id number] / / Description:Load 39 April 25, 2014 Procedures Procedure Name Priority Date/Time Associated Diagnosis Comments HEMOGLOBIN A1C Add on 05/10/2014 5:32 PM CDT from Last 3 Months or Most Recently Relevant to Health Maintenance Results * (ABNORMAL) HEMOGLOBIN A1C (05/10/2014 5:32 PM CDT) HEMOGLOBIN A1C 6.6(H) 4.1 - 6.1 % of Hgb [facility] EST. AVG GLUCOSE, A1C 143 mg/dL [facility] Comment:Based on the ADAG st udy equation. Blood 05/10/2014 5:32 PM CDT 05/12/2014 6:49 PM CDT Narrative [facility] - 05/12/2014 6:50 PM CDT If not available from last three months us Chang Kidd MD CHEMISTRY ORDERABLES Final Resul t [facility]# [id number] [place] [address] from Last 3 Months or Most Recently Relevant to Health Maintenance Insurance MEDICARE PART A AND B [facility] Advance Directives For more information, please contact: [phone] * Full Code (Latest Code Status on [...] 9:40 AM 05/10/2014 10:26 AM Care Teams Childcare Director Relationship Specialty Start Date End Date Ehsan Campos MD [address] [place], [id number] PCP - General 01/14/03
--- OUTSIDE RECORDS SUMMARY | 2024-06-17 10:00 | XMS_ITS | Referral Summary ---
Author Organization [facility] Building B Address [address] [place] [address] Care Team Providers Care Bank Advisor Name Role Phone Stuart Howe DO Primary Care Provider July Maradiaga MD Unavailable [phone] Bandar Up DPT Unavailable [phone] Esther Garcia PT Unavailable [phone] Encounters Date Type Department Care Team Description 05/14/2024 Telephone [facility] [address] [address], [address] [place] [id number] Delia Washington RN PMC Intake Assessment 05/13/2024 1:30 PM CDT Office Visit [facility] Neuro Muscle [address] [place] [address] [place] [address] Wellington Alva MD PhD Peripheral nerve injury (Primary Dx); Mononeuropathy multiplex syndrome; Spinal stenosis of lumbar region, unspecified whether neurogenic claudication present; Chronic low back pain, unspecified back pain laterality, unspecified whether sciatica present 05/10/2024 Orders Only [facility] Endocrinology Metabolism and Lipid [address] [place] [id number] Jazzy Alvarado, Wilson Type 2 diabetes mellitus with hyperglycemia, without long-term current use of insulin ([facility]) 05/03/2024 11:00 AM CDT Office Visit [facility] Endocrinology Metabolism and Lipid [address] [place] [address] [place] [address] Gladys Box MD Type 2 diabetes mellitus with hyperglycemia, without long-term current use of insulin (HCC) (Primary Dx); Steroid-induced hyperglycemia; Type 2 diabetes mellitus with hyperglycemia, with long-term current use of insulin ([facility]) from Last 3 Months Allergies No known active allergies Medications aspirin 81 mg enteric coated tablet Take 1 tablet (81 mg total) by mouth daily with breakfast Active albuterol HFA (PROVENTIL HFA,VENTOLIN HFA,PROAIR HFA) 90 mcg/actuation inhaler Inhale 2 puffs every 6 (six) hours as needed for wheezing or shortness of breath 08/20/19 22 Active folic acid (FOLVITE) 1 mg tablet Take 1 tablet (1,000 mcg total) by mouth every morning 01/24/20 22 Active acetaminophen (TYLENOL) 500 mg tablet Take 2 tablets (1,000 mg total) by mouth every 6 (six) hours 60 tablet 1 03/29/19 23 Active atorvastatin (LIPITOR) 20 mg tablet Take 2 tablets (40 mg total) by mouth nightly Active insulin lispro (HumaLOG, ADMELOG) 100 unit/mL pen for injection 12 - 15 units with meal 5 units for snacks plus 1 for every 40 > 150 - TDD 70 units 30 mL 11 08/20/19 23 Active insulin glargine 100 unit/mL (3 mL) pen for injectionIndic ations:Steroid -induced hyperglycemia, Type 2 diabetes mellitus with hyperglycemia, with long-term current use of insulin ([facility]) Inject 24 Units under the skin daily 15 mL 3 08/06/19 24 Active Additional Information Patient taking differently: 15 Unitssubcutaneous Daily, Reported on 05/13/2024 NovoLOG 100 unit/mL (3 mL) pen for injection INJECT 5 - 15 UNITS UNDER THE SKIN 4 TO 6X DAILY MEALTIME & CORRECTION BOLUS (MAX 90 UNITS/DAY) 15 mL 1 10/21/19 24 Active metoprolol tartrate (LOPRESSOR) 25 mg immediate release tablet Take 0.5 tablets (12.5 mg total) by mouth 2 (two) times a day Active ipratropium-al buteroL (DUO-NEB) 0.5-2.5 mg/3 mL nebulizer solution Inhale 3 mL every 6 (six) hours as needed 12/16/19 Active lansoprazole (PREVACID) 30 mg capsule Administer per tube 1 capsule (30 mg total) daily before breakfast 12/16/19 24 Active rOPINIRole (REQUIP) 1 mg tablet Take 1 tablet (1 mg total) by mouth 3 (three) times a day Activ e traZODone (DESYREL) 50 mg tablet Take 1 tablet (50 mg total) by mouth nightly Active doxazosin (CARDURA) 1 mg tablet TAKE 1 TABLET BY MOUTH DAILY FOR 3 MONTHS 04/09/19 25 Active pen needle, diabetic 32 gauge x 5/32 needleIndicati ons:Type 2 diabetes mellitus with hyperglycemia, without long-term current use of insulin (HCC) Use as directed with basal, bolus, and correction insulin 5 to 6 times a day. 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 Overview (04/18/2022): Coronary arteriosclerosis in [place] artery Type 2 diabetes mellitus wit h [...] on file Legal 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 Gender Identity Male 05/07/2021 12:04 AM CDT Sexual Orientation Straight 06/25/2022 9: 20 AM CDT Last Filed Vital Signs Vital Sign Reading Time Taken Comments Blood Pressure 138/75 05/13/2024 1:32 PM CDT Pulse 83 05/13/2024 1:32 PM CDT Temperature 36.6 C (97.9 F) 05/03/2024 10:44 AM CDT Respiratory Rate 16 2022 9:58 AM CDT Oxygen Saturation 99% 08/25/2023 10:19 AM CDT Inhaled Oxygen Concentration - - Weight 78 kg (172 lb) 05/13/2024 1:32 PM CDT Height 172.7 cm (5' 8 ) 05/13/2024 1:32 PM CDT Body Mass Index 26.15 05/13/2024 1:32 PM CDT Plan of Treatment Not on file Medical Devices Implanted Type Area Tool Chaser Device Identifier Shelf Expiration Date Model / Serial / Lot Stent Implanted:Qty: 3 Stent N/A: Heart [employer] Advance 3-4mm 50mm Allograft Graft Nerve Sterile [id number] - [id number] - [id number] Implanted:Qty: 1 on 03/29/2022 by Jacquie Sol MD at [facility] Left: Leg [employer] 05/24/2024 [id number] / [id number] / [id number] [employer] Weck Horizon Ligate Triangulate Cross Section Wire Small Wide Latex Free [id number] - [id number] Implanted:Qty: 2 on 03/29/2022 by Jacquie Sol MD at [facility] Left: Leg [employer] 09/28/2026 [id number] / / Procedures Procedure Name Priority Date/Time Associated Diagnosis Comments POCT HEMOGLOBIN A1C Routine 05/03/2024 1 0:52 AM CDT Type 2 diabetes mellitus with hyperglycemia, without long-term current use of insulin (HCC) POCT GLUCOSE [id number] Routine 05/03/2024 10 :47 AM CDT Type 2 diabetes mellitus with hyperglycemia, without long-term current use of insulin ([facility]) COMPREHENSIVE METABOLIC PANEL Routine 04/28/2023 10:22 AM STEEL TIER Type 2 diabetes mellitus with hyperglycemia, with long-term current use of insulin (HCC) LIPID PANEL Routine 04/28/2023 10:22 AM STEEL TIER Type 2 diabetes mellitus with hyperglycemia, with long-term current use of insulin (HCC) ALBUMIN CREATININE RATIO, URINE Routine 04/28/2023 10:22 AM STEEL TIER Type 2 diabetes mellitus with hyperglycemia, with long-term current use of insulin ([facility]) from Last 3 Months or Most Recently Relevant to Health Maintenance Results * POCT hemoglobin A1c (05/03/2024 10:52 AM CDT) Hemoglobin A1C, POC 8.1 4.0 - 5.6 % Blood 05/03/2024 10:5 2 AM CDT Gladys Box MD POINT OF CARE TEST ORDERABLES Final Result * POCT glucose (05/03/2024 10:47 AM CDT) Glucose Blood, POC 215 mg/dL Blood 05/03/2024 10:4 7 AM CDT Gladys Box MD POINT OF CARE TEST ORDERABLES Final Result * Albumin Creatinine Ratio, Urine (04/28/2023 10:22 AM STEEL TIER) Microalb, Ur 13.1 0.0 - 22.9 mg/L [facility] Random Urine Creatinine 254.3 mg/dL [facility] Microalb/Creat Ratio 5.2 0.0 - 29.9 mg/g [facility] Urine 04/28/2023 10:2 2 AM STEEL TIER 04/28/2023 11:23 AM STEEL TIER Gladys Box MD LAB URINE ORDERABLES Final Re sult [facility] * (ABNORMAL) Lipid panel (04/28/2023 10:22 AM STEEL TIER) Triglycerides 165(H) <150 mg/dL [facility] [...] calculations are under investigation, such as Isaiah M, et al. YUDY Cardiol. 2020;5(5):540-548 or Walt SS et al. YUDY Cardiol. 2018;3(8):749-753. Consider the use of non-HDL-c to estimate atherosclerotic cardiovascular disease risk. The Friedewald equation is accurate in most patients when triglycerides are less than 150 mg/dL. Consider the use of non-HDL-C or Apo B to help estimate atherosclerotic cardiovascular diesase risk if triglycerides are elevated. Blood 04/28/2023 10:2 2 AM STEEL TIER 04/28/2023 11:23 AM STEEL TIER Narrative [facility] - 04/28/2023 1:22 PM STEEL TIER Current interpretive data was last updated January 26, 2021. For adults ages 40-79, the ACC/AHA recommends discussing your 10-year atherosclerotic cardiovascular disease risk with your health care provider. https://www.acc.org/ASCVDApp us Gladys Box MD LAB BLOOD ORDERABLES Final Re sult [facility] * (ABNORMAL) Comprehensive metabolic panel (04/28/2023 10:22 AM STEEL TIER) Total Protein 7.2 6.1 - 8.4 g/dL [...] [facility] Blood 04/28/2023 10:2 2 AM STEEL TIER 04/28/2023 11:23 AM STEEL TIER us Gladys Box MD LAB BLOOD ORDERABLES Final Re sult [facility] from Last 3 Months or Most Recently Relevant to Health Maintenance Insurance MEDICARE [facility] [address] MEDICARE [place] [facility] MEDICARE [facility] JOHNNA [place] [id number] Advance Directives For more information, please contact: [phone] * Full Code (Latest Code Status on File) Date Activated Date Inactivated Comments 04/15/2022 4:03 PM 04/18/2022 9:50 PM * Full Code Date Activated Date Inactivated Comments 03/29/2022 4:51 PM 03/30/2022 7:50 PM Care Teams Bank Advisor Relationship Specialty Start Date End Date Stuart Howe DO [address] [place] [address] PCP - General Family Medicine 05/10/21 July Maradiaga MD [address] [place] [address] Consulting Physician Cardiology 03/22/22 Bandar Up, RADHAT [address] [facility] [address] [id number] Physical Therapist Physical Therapy 06/11/22 Esther Garcia, PT [address] [facility] [address] [address] Physical Therapist Physical Therapy 08/13/22
--- OUTSIDE RECORDS SUMMARY | 2024-06-17 10:00 | XMS_ITS | Encounter Summary ---
Author Organization [employer] Address 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
--- OUTSIDE RECORDS SUMMARY | 2024-06-17 10:00 | XMS_ITS | CONTINUITY OF CARE DOCUMENT ---
Author Name robyn carlson Address Unknown Organization [facility] Address [address] [place] [address] Phone [phone] Care Team Providers Care Lens Molder Name Role Phone Hiren YAP, July Unavailable BUSCHLING DO, SINAN Unavailable BUSCHLING DO, SINAN [...] Maradiaga MD Immune deficiency active Isis Valverde INTERFACE CONTROL OFFICER Cardiology examination active July swenson MD ENCOUNTERS Date Type Provider Location Encounter Diag nosis - In-person encounter Office Visit July Maradiaga MD [facility] - In-person encounter Office Visit July Maradiaga MD [facility] Cardiology examination - In-person encounter Office Visit July Maradiaga MD [facility] - In-person encounter Office Visit July Maradiaga MD [facility] Preoperative cardiovascular evaluation - In-person encounter Office Visit July Maradiaga MD [facility] Immune deficiency - In-person encounter Office Visit July Maradiaga MD [facility] - In-person encounter Office Visit July Maradiaga MD [facility] - In-person encounter Office Visit July Maradiaga MD [facility] CAD - s/p NATE RCA, Ramus 03/2013, s/p BMS OM1 05/14 - In-person encounter Office Visit July Maradiaga MD [facility] Cardiology examination - In-person encounter Office Visit July Maradiaga MD [facility] CAD - s/p NATE RCA, Ramus 03/2013, s/p BMS OM1 05/14HTN essentialDyslipidemiaDiabetes mellitusGERDChronic Back Pain VITAL SIGNS Date Observation Value Provider Body Mass Index (Ratio) 25.40 kg/m2 Ron Maradiaga MD blood pressure, diastolic 82 mm[Hg] [place] Hightower blood pressure, systolic 142 mm[Hg] Jovanna Hightower oxygen saturation, oximetry 98 % Katelyn [...] blood pressure, systolic 126 mm[Hg] Tab itha Sullivan oxygen saturation, oximetry 96 % Liza Sullivan respiratory rate E&M 12 /min Liza Horvath [...] [lb_av] Mina y height E&M 69 [in_i] [facility] Body Mass Index (Ratio) 25.40 [...] lder height E&M 69 [in_i] Geni Lauren [facility] Body Mass Index (Ratio) 27.26 kg/m2 Ron [...] 100 unit/mL insulin pen active Isis Bernicemiglia INTERFACE CONTROL OFFICER fluticasone propionate 50 mcg/actuation spray,suspensio n active as needed [facility] Advair HFA 45-21 mcg/actuation HFA aerosol inhaler completed - July Maradiaga MD nortriptyline 10 mg capsule completed - [facility] folic acid 1 mg tablet active Take 1 tablet by mouth once a day [facility] albuterol sulfate 90 mcg/actuation HFA aerosol inhaler active INHALED 1 PUFF EVERY 4 HOURS NEEDED FOR SHORTNESS OF BREATH OR WHEEZING Isis Queenmicarlos WHEELERP dexamethasone 6 mg tablet completed TAKE 1 TABLET ORALLY DAILY - [facility] clopidogrel 75 mg tablet completed TAKE 1 TABLET BY MOUTH EVERY DAY - Isis Queenmiglnegrita WHEELERP pantoprazole 40 mg tablet,delayed release (DR/EC) active TAKE 1 TABLET BY MOUTH EVERY DAY [facility] aspirin 81 mg tablet,chewable active Take 1 [...] mouth three times a day Isis Ventimiglia INTERFACE CONTROL OFFICER #90, 90 days supply, Prescribed by YANIRA [...] July swenson MD drug use no July Maradaiga MD alcohol use no July Maradiaga MD [...] MD drug use no Isis Ventimig jaime INTERFACE CONTROL OFFICER alcohol use no Isis Ventimig jaime INTERFACE CONTROL OFFICER smoking status Never smoker Isis castro INTERFACE CONTROL OFFICER social history reviewed E&M revi ewed - [...] E&M revi ewed - no changes required uJly Maradiaga MD smoking status Never smoker Geni lr [...] Management Plan continue current therapy Isis Valverde INTERFACE CONTROL OFFICER HRA, CV Assess/Plan, Angina (inactive) Management Plan [...] Payer name Policy type / Coverage type [facility] libertarian [employer] [id number] [place] MED[place] Medicare [id number] ADVANCE DIRECTIVES Name Date DISCUSSED - NO DECISION MADE TREATMENT PLAN Date Name Performer [id number],C, H is updated medication list for this problem includes: Pantoprazole 40 Mg Tablet,delayed Release (dr/ec) (Pantoprazole) ..... Take 1 tablet by mouth every day July Maradiaga MD [id number],C,w c per pt His updated medication list for this problem includes: Humalog Kwikpen Insulin 100 Unit/ml Insulin Pen (Insulin lispro) Lisinopril 5 Mg Tablet (Lisinopril) ..... Take 1 tablet by mouth once a day Aspirin 81 Mg Tablet,chewable (Aspirin) ..... Take 1 tablet once a day July Maradiaga MD [id number],C, H is updated medication list for this problem includes: Atorvastatin 20 Mg Tablet (Atorvastatin) ..... Take 1 tablet by mouth once a day July Maradiaga MD [id number],C,S till experiencing back pain and has pain with walking July Maradiaga MD [id number],C,L ast stent 04/2020. He has been chest [...] tablet once a day July Maradiaga MD [id number],C,H e checks BP everyday, runs around 111/66. [...] mouth once a day July Maradiaga MD [id number],C, H is updated medication list for this problem includes: Atorvastatin 20 Mg Tablet (Atorvastatin) ..... Take 1 tablet by mouth once a day Isis Valverde [facility] [id number],C,n ow on insulin in setting of high [...] 1 tablet once a day Isis Valverde [facility] [id number],C,c ontrolled H is updated medication list for [...] by mouth once a day Isis Valverde [facility] [id number],C,L ast stent 04/2020. 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 He is following at [place]. He is now recieving weekly high dose steroids at the hospital. We will plan to monitor. Given this will do f/u echo prior to next visit to monitor. O rders: 9 9214 MOD 30-39min (CPT-49709) C omplete Echo (CPT-94878) Isis Valverde [facility] [id number],C, C ontinues on Metformin, Pioglitazone and Glimepiride. Reduced intake of carbohydrates and sugars advised. A1c was 6.6 per pt. July Maradiaga MD [id number],S, C ontinues on Atorvastatin. We aim for an LDL <70. July Maradiaga MD [id number],S, H is muscles continue to be weak. He continues to have discomfort and limited mobility. July Maradiaga MD [id number],S, B lood pressure control is satisfactory. July Maradiaga MD [id number],S, H e denies chest pain and SOB. Continues on aspirin and Plavix. July Maradiaga MD [id number],C,H e denies chest pain and SOB. Continues on aspirin and Plavix. July Maradiaga MD [id number],C,S /P successful back surgery. Is lifting weights to restrengthen his weakened muscles. July Maradiaga MD [id number],S, C ontinues on Omeprazole. July Maradiaga MD [id number],S, C ontinues on Metformin, Pioglitazone and Glimepiride. Reduced intake of carbohydrates and sugars advised. July Maradiaga MD [id number],S, C ontinues on Atorvastatin. We aim for an LDL <70. July Maradiaga MD [id number],S, B lood pressure control is satisfactory. July [...] July Maradiaga MD Cardiology:Following with neurologist at [facility] and [facility] July Maradiaga MD Cardiology:Stable, n [...] by mouth once a day Isismarissa Valverde [facility] Cardiology:now on in [facility] in setting of high dose steroids T [...] 1 tablet once a day Isis Valverde [facility] Cardiology:controlle d H is updated [...] by mouth once a day Isismarissa Langfordcarlos [facility] Cardiology:Last sten t 04/2020. He [...] ..... 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 He is following at [place]. He is now recieving weekly high dose steroids at the hospital. We will plan to monitor. Given this will do f/u echo prior to next visit to monitor. O rders: 9 9214 MOD 30-39min (CPT-05201) C omplete Echo (CPT-49890) Isismarissa Valverde [facility] Cardiology: C ontinues on Metformin, [...] pressure control is satisfactory. July Maradiaga MD [facility] Follow up :Effort tolerance limited. [facility] Follow up :Continues on Metformin, Pioglitazone and Glimepiride. Reduced intake of carbohydrates and sugars advised. [facility] Follow up :Continues on Atorvastatin. We aim for an LDL <70. [facility] Follow up :Blood pressure [facility] is satisfactory. [facility] Follow up :He is planned for lumbar spine surgery on June 13, 2020. He needs to have at least 30 days on DAPT with Aspirin and Plavix which would be June 10, 2020. If he needs to hold the Plavix for more than 3 days prior to the procedure, it will need to be delayed. [facility] Hospital Follow up :s/p recent intervention [...]
--- OUTSIDE RECORDS SUMMARY | 2024-06-17 10:00 | XMS_ITS | Encounter Summary ---
Author Organization [employer] Address 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 Co de Phone Number INTERFACE SYSTEM Refer to clinic/hospital department * (ABNORMAL) POC GLUCOSE (06/30/2006 8:12 PM CDT) COMMENT, GLU POC Notified RN INTERFACE SYSTEM GLUCOSE POC 286(H) 65 - 99 mg/dL INTERFACE SYSTEM 06/30/2006 8:12 PM CDT Wellington Mendoza MD POINT OF CARE TESTING Edited Performing Organization Address [facility] de Phone Number INTERFACE SYSTEM Refer to clinic/hospital department * (ABNORMAL) POC GLUCOSE (06/30/2006 5:01 PM CDT) COMMENT, GLU POC Notified RN INTERFACE SYSTEM GLUCOSE POC 227(H) 65 - 99 mg/dL INTERFACE SYSTEM 06/30/2006 5:01 PM CDT Wellington Mendoza MD POINT OF CARE TESTING Edited Performing Organization Address [facility] de Phone Number INTERFACE SYSTEM Refer to clinic/hospital department * (ABNORMAL) POC GLUCOSE (06/30/2006 11:58 AM CDT) COMMENT, GLU POC Notified RN INTERFACE SYSTEM GLUCOSE POC 180(H) 65 - 99 mg/dL INTERFACE SYSTEM 06/30/2006 11:5 8 AM CDT us Wellington Mendoza MD POINT OF CARE TESTING Edited Performing Organization Address City/[facility] Co de Phone Number INTERFACE SYSTEM Refer to clinic/hospital department * (ABNORMAL) POC GLUCOSE (06/30/2006 9:10 AM CDT) GLUCOSE POC 165(H) 65 - 99 mg/dL INTERFACE SYSTEM 06/30/2006 9:10 AM CDT us Wellington Mendoza MD POINT OF CARE TESTING Edited Performing Organization Address [facility] de Phone Number INTERFACE SYSTEM Refer to clinic/hospital department * (ABNORMAL) POC GLUCOSE (06/30/2006 5:56 AM CDT) GLUCOSE POC 138(H) 65 - 99 mg/dL INTERFACE SYSTEM 06/30/2006 5:56 AM CDT us Wellington Mendoza MD POINT OF CARE TESTING Edited Performing Organization Address [facility] de Phone Number INTERFACE SYSTEM Refer to [...] and non- Americans is available on the [facility] Intranet at: [email or web address] Select: Lab Policies and Procedures Select: Reference Ranges - GFR 06/27/2006 11:1 7 AM CDT us Wellington Mendoza MD CHEMISTRY ORDERABLES Edited Performing Organization Address [facility] de Phone Number INTERFACE SYSTEM Refer to [...] Primary documented in this encounter Care Teams Wind Up Worker Relationship Specialty Start Date End Date Ehsan Campos MD [address] [place] [id number] PCP - General 01/14/03 documented as of this encounter
--- OUTSIDE RECORDS SUMMARY | 2024-06-17 10:00 | XMS_ITS | Encounter Summary ---
Author Organization [facility] Address [address] [place] [address] Phone Care Team Providers Care Circulation Director Name Role Phone Stuart Howe DO Primary Care Provider July Maradiaga MD Unavailable [phone] Bandar Up DPT Unavailable [phone] Esther Garcia PT Unavailable [phone] Encounter Details Date Type Department Care Team (Late st Contact Info) Description 02/01/2022 Telephone [facility] Scheduling [address] [place] [address] Galilea Esteban CMA Social History Tobacco Use Types Packs/Day Years Used Date Smoking Tobacco: Former Cigarettes Q uit: 02/25/1964 Alcohol Use Standard Drinks/Week Comments No 0 (1 standard drink = 0.6 oz pur e alcohol) Sex and Gender Information Value Date Recorded Sex Assigned at Not on file 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 Gender Identity Male 05/07/2021 12:04 AM CDT Sexual Orientation Straight 06/25/2022 9: 20 AM CDT documented as of this encounter Plan of Treatment Not on file documented as of this encounter Visit Diagnoses Not on filedocumented in this encounter Care Teams Circulation Director Relationship Specialty Start Date End Date Stuart Howe DO [address] [place] [address] PCP - General Family Medicine 05/10/21 July Maradiaga MD [address] [place] [address] Consulting Physician Cardiology 03/22/22 Bandar Up, RADHAT [address] [facility] [place] [address] [address] Physical Therapist Physical Therapy 06/11/22 Esther Garcia, PT [address] [facility] [place] [address] [address] Physical Therapist Physical Therapy 08/13/22 documented as of this encounter
--- OUTSIDE RECORDS SUMMARY | 2024-06-17 10:00 | XMS_ITS | Clinical Summary ---
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 Overview (04/18/2022): Coronary arteriosclerosis in [place] artery Type 2 diabetes mellitus wit h hyperglycemia, with long-term current use of insulin On methylprednisolone therapy IgA deficiency IgM deficiency Persistent 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 complication Encounters Date Type Department Care Team Description 05/14/2024 Telephone [facility] [address] [address], [address] [place] [address] Delia Washington RN PMC Intake Assessment 05/13/2024 1:30 PM CDT Office Visit [facility] [address] [facility] 6[address] [place] [address] Wellington Alva MD PhD Peripheral nerve injury (Primary Dx); Mononeuropathy multiplex syndrome; Spinal stenosis of lumbar region, unspecified whether neurogenic claudication present; Chronic low back pain, unspecified back pain laterality, unspecified whether sciatica present 05/10/2024 Orders Only [facility] Metabolism and Lipid [address] [facility] 13th [place] [address] [place] [address] Jazzy Alavrado RMA Type 2 diabetes mellitus with hyperglycemia, without long-term current use of insulin (HCC) 05/03/2024 11:00 AM CDT Office Visit [facility] Metabolism and Lipid [address] [facility] 13th [place] [address] [place] [address] Gladys Box MD Type 2 diabetes mellitus with hyperglycemia, without long-term current use of insulin (HCC) (Primary Dx); Steroid-induced hyperglycemia; Type 2 diabetes mellitus with hyperglycemia, with long-term current use of insulin (HCC) from Last 3 Months Immunizations Immunization Administration [...] you are drinking? 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 Gender Identity Male 05/07/2021 12:04 AM CDT [...] 05/13/2024 1:32 PM CDT Plan of Treatment Health Maintenance [...] 2023-2 5 season) 2023 12/21/2020, 05/05/2020, 04/14/2020 Albumin Creatinine Ratio, Urine 04/27/2024 Lipid Panel 04/27/2024 04/28/2023, 03/28, 03/31/2013 eGFR 04/27/2024 04/28/2023, 05/25, 04/17/2022, Additional history exists Influenza Vaccine (Season Ended) 2024 12/08/2018, 10/20/2017, 11/24/2014, Additional history exists Hemoglobin A1C 11/03/2024 05/03/2024, 10/25, 11/03/2023, Additional history exists Abdominal Aortic Aneurysm (A AA) Screen Completed 11/04/2023 Medical Devices Implanted Type Area Engraved Roller Inspector Device Identifier Shelf Expiration Date Model / Serial / Lot Stent Implanted:Qty: 3 Stent N/A: Heart [employer] Advance 3-4mm 50mm Allograft Graft Nerve Sterile [id number] - [id number] - [id number] Implanted:Qty: 1 on 03/29/2022 by Jacquie Sol MD at [facility] Left: Leg [employer] 05/24/2024 [id number] / [id number] / [id number] [employer] Weck Horizon Ligate Triangulate Cross Section Wire Small Wide Latex Free [id number] - [id number] Implanted:Qty: 2 on 03/29/2022 by Jacquie Sol MD at [facility] Left: Leg [employer] 09/28/2026 [id number] / / Procedures Procedure Name Priority Date/Time Associated Diagnosis Comments POCT HEMOGLOBIN A1C Routine 05/03/2024 1 0:52 AM CDT Type 2 diabetes mellitus with hyperglycemia, without long-term current use of insulin (HCC) POCT GLUCOSE [id number] Routine 05/03/2024 10 :47 AM CDT Type 2 diabetes mellitus with hyperglycemia, without long-term current use of insulin (HCC) COMPREHENSIVE METABOLIC PANEL Routine 04/28/2023 10:22 AM PICKLING MACHINE OPERATOR Type 2 diabetes mellitus with hyperglycemia, with long-term current use of insulin (HCC) LIPID PANEL Routine 04/28/2023 10:22 AM PICKLING MACHINE OPERATOR Type 2 diabetes mellitus with hyperglycemia, with long-term current use of insulin (HCC) ALBUMIN CREATININE RATIO, URINE Routine 04/28/2023 10:22 AM PICKLING MACHINE OPERATOR Type 2 diabetes mellitus with hyperglycemia, with [...] Albumin Creatinine Ratio, Urine (04/28/2023 10:22 AM PICKLING MACHINE OPERATOR) Microalb, Ur 13.1 0.0 - 22.9 mg/L [facility] Random Urine Creatinine 254.3 mg/dL [facility] Microalb/Creat Ratio 5.2 0.0 - 29.9 mg/g [facility] Urine 04/28/2023 10:2 2 AM PICKLING MACHINE OPERATOR 04/28/2023 11:23 AM PICKLING MACHINE OPERATOR Gladys Box MD LAB URINE ORDERABLES Final Re sult [facility] * (ABNORMAL) Lipid panel (04/28/2023 10:22 AM PICKLING MACHINE OPERATOR) Triglycerides 165(H) <150 mg/dL [facility] [...] are elevated. Blood 04/28/2023 10:2 2 AM PICKLING MACHINE OPERATOR 04/28/2023 11:23 AM PICKLING MACHINE OPERATOR Narrative [facility] - 04/28/2023 1:22 PM PICKLING MACHINE OPERATOR Current interpretive data was last updated January 26, 2021. For adults ages 40-79, the ACC/AHA recommends discussing your 10-year atherosclerotic cardiovascular disease risk with your health care provider. [email or web address].acc.org/ASCVDApp us Gladys Box MD LAB BLOOD ORDERABLES Final Re sult [facility] * (ABNORMAL) Comprehensive metabolic panel (04/28/2023 10:22 AM PICKLING MACHINE OPERATOR) Total Protein 7.2 6.1 - 8.4 g/dL [...] [facility] Blood 04/28/2023 10:2 2 AM PICKLING MACHINE OPERATOR 04/28/2023 11:23 AM PICKLING MACHINE OPERATOR Gladys Box MD LAB BLOOD ORDERABLES Final Re sult [facility] from Last 3 Months or Most Recently Relevant to Health Maintenance Insurance MEDICARE [place] [id number] [employer] [employer] [place] [employer] [place] [employer] Advance Directives For more information, please contact: [phone] * Full Code (Latest Code Status on File) Date Activated Date Inactivated Comments 04/15/2022 4:03 PM 04/18/2022 9:50 PM * Full Code Date Activated Date Inactivated Comments 03/29/2022 4:51 PM 03/30/2022 7:50 PM Care Teams Wire Straightener Relationship Specialty Start Date End Date Stuart Howe DO [address] [place] [address] PCP - General Family Medicine 05/10/21 July Maradiaga MD [address] [place] [address] Consulting Physician Cardiology 03/22/22 Bandar pU DPT [address] [place] [address] [facility] [place] [address] Physical Therapist Physical Therapy 06/11/22 Esther Garcia PT [address] [place] [address] [place] [address] Physical Therapist Physical Therapy 08/13/22
--- OUTSIDE RECORDS SUMMARY | 2024-06-17 10:00 | XMS_ITS | Encounter Summary ---
Author Organization [employer] Address 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
--- OUTSIDE RECORDS SUMMARY | 2024-06-17 10:00 | XMS_ITS | Encounter Summary ---
Author Organization [employer] Address 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 Gender Identity Not on file Sexual Orientation [...] INTERFACE SYSTEM 06/10/2006 1:47 PM CDT Result [facility] Wellington Mendoza MD HEMATOLOGY ORDERABLES Edited Performing Organization Address [facility] Phone Number INTERFACE SYSTEM Refer to clinic/hospital department * TOTAL PROTEIN, CSF (06/10/2006 1:47 PM CDT) PROTEIN, CSF 43 15 - 45 mg/dL INTERFACE SYSTEM 06/10/2006 1:47 PM CDT Wellington Mendoza MD BODY FLUIDS AND STOOLS Edited Performing Organization Address [facility] Phone Number INTERFACE SYSTEM Refer to clinic/hospital department * (ABNORMAL) GLUCOSE, CSF (06/10/2006 1:47 PM CDT) GLUCOSE, CSF 75(H) 40 - 70 mg/dL INTERFACE SYSTEM 06/10/2006 1:47 PM CDT Wellington Mendoza MD BODY FLUIDS AND STOOLS Edited Performing Organization Address [facility] INTERFACE SYSTEM Refer to clinic/hospital department * [...] FLUIDS AND STOOLS Edited Performing Organization Address [facility] Phone Number INTERFACE SYSTEM Refer to clinic/hospital [...] and non- Americans is available on the [facility] Intranet at: [email or web address] Select: Lab Policies and Procedures Select: Reference Ranges - GFR 06/10/2006 10:3 5 AM CDT us Wellington Mendoza MD CHEMISTRY ORDERABLES Edited Performing Organization Address City/[facility]/ZIP Co de Phone Number INTERFACE SYSTEM Refer to clinic/hospital department * HEMOGLOBIN AND HEMATOCRIT (06/10/2006 10:35 AM CDT) HEMOGLOBIN 14.5 13.6 - 16.5 g/dL INTERFACE SYSTEM HEMATOCRIT 42.3 40.0 - 48.0 % INTERFACE SYSTEM 06/10/2006 10:3 5 AM CDT us Wellington Mendoza MD HEMATOLOGY ORDERABLES Edited Performing Organization Address [facility]/State/ZIP Co de Phone Number INTERFACE SYSTEM Refer to clinic/hospital department documented in this encounter Visit Diagnoses Diagnosis Cervicalgia- Primary documented in this encounter Care Teams Saloonkeeper Relationship Specialty Start Date End Date Ehsan Campos MD [address] [place] [address] PCP - General 01/14/03 documented as of this encounter
--- OUTSIDE RECORDS SUMMARY | 2024-06-17 10:00 | XMS_ITS | Encounter Summary ---
Author Organization [facility] Address [address] [place] [address] Care Team Providers Care Business Account Executive Name Role Phone Ehsan Campos MD Primary Care Provider [phone] Encounter Details Date Type Department Care Team (Late st Contact Info) Description 06/29/1999 Outpatient Historical [facility] Wilmer Barba MD [address] [place] [id number] Dyspepsia and other specified disorders of function of stomach (Primary Dx) Social History Tobacco Use Types Packs/Day Years Used Date Smoking Tobacco: Never Assessed Sex and Gender Information Value Date Recorded Sex Assigned at Not on file 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
--- OUTSIDE RECORDS SUMMARY | 2024-06-17 10:00 | XMS_ITS | Clinical Summary ---
Author Organization [facility] Address [address] [place] [address] Care Team Providers Care Boat Patcher Plastic Name Role Phone Del Cid, Cipriano REESE-PAIN MEDICINE PHYSICIAN Primary Care Provider [phone] Source Comments [facility],non-owned Affiliates and Associated Physician Practices is amultiple site organization consisting of ambulatory clinics and hospital sitesin [place], [place], [place] and [place]. This disclosure is being madepursuant to the Care Everywhere program and may not contain all information available regarding this patient. Last updated 17.[facility] Allergies Active Allergy Reactions Criticality Noted Date Comments Mirtazapine Other 04/15/2024 Medications * Be aware that medications may not be up to date on this document. Alwaysverify current medications with the patient. aspirin (Aspirin) 81 MG chew tablet 1 (one) tablet by Enteral Tube route once daily 12/17/19 24 Active acetaminophen (Tylenol) 160 MG/5ML solution 31.25 mL by Enteral Tube route 3 times daily 12/16/19 24 Active albuterol-ipra tropium (Duo-Neb) 0.5-2.5 (3) MG/3ML nebulizer solution Inhale 3 mL by mouth every 6 hours as needed for Shortness of Breath or Wheezing 12/16/19 24 Active Additional Information Patient taking differently:3 mL InhalationPRN, Shortness of Breath, Wheezing, Reported on 05/06/2024 insulin glargine (Lantus/Semgle e) 100 units/mL pen Inject 38 (thirty eight) Units subcutaneously every morning 12/17/19 Active insulin aspart (NovoLOG) pen Inject 0 (zero) Units to 12 (twelve) Units subcutaneously every 6 hours 12/16/19 Active atorvastatin (Lipitor) 40 MG tablet 1 (one) tablet by Enteral Tube route at bedtime 12/16/19 Active saline nasal spray (Cacao; Baby Frederick) 0.65 % nasal spray Dodge 2 (two) sprays into each nostril every 4 hours 12/16/19 Active Additional Information Patient not taking.Reported on 05/06/2024 folic acid (Folvite) 1 MG tablet 1 (one) tablet by Enteral Tube route once daily 12/17/19 Active polyethylene glycol 3350 (Miralax) 17 g packet 17 (seventeen) g by Enteral Tube route 2 times daily 12/16/19 Active Additional Information Patient not taking.Reported on 05/06/2024 phenol 1.4 % 2 sprays by Mouth/Throat route every 1 hour as needed 12/16/19 Active Additional Information Patient not taking.Reported on 05/06/2024 lansoprazole (Prevacid) 30 MG capsule 1 (one) capsule by Per G Tube route daily before breakfast 12/16/19 Active doxazosin (Cardura) 1 MG tablet Take 1 (one) tablet by mouth at bedtime 04/09/19 Active metoprolol tartrate IR (Lopressor) 25 MG tablet Take 1 (one) tablet by mouth 2 times daily Active rOPINIRole (Requip) 1 MG tablet Take 1 (one) tablet by mouth once daily Active traZODone (Desyrel) 50 MG tablet Take 1 (one) tablet by mouth at bedtime Active ketorolac LS (Acular Ls) 0.4 % ophthalmic solution INSTILL 1 DROP INTO LEFT EYE 4 TIMES A DAY DIRECTED 10/29/19 24 025 Discontin ued(List Clean-Up) ondansetron, disintegrating , (Zofran ODT) 4 MG tablet Take 1 (one) tablet by mouth every 6 hours as needed for Nausea/Vomiting Allow tablet to dissolve on the tongue 12/16/19 025 Discontin ued(List Clean-Up) melatonin 3 MG tablet 2 (two) tablets by Enteral Tube route at bedtime 12/16/19 025 Discontin ued(List Clean-Up) Active Problems Problem Noted Date Diagnosed Date [...] (05/01/2023): Added automatically from request for surgery [id number] Atherosclerotic heart diseas e of [place] coronary artery without angina pectoris 04/19/2020 05/01/2023 [...] 05/11/2014 05/01/2023 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 05/01/2023 Overview (05/01/2023): Coronary arteriosclerosis in [place] artery Resolved Problems Problem Noted Date Diagnosed Date Resolved Date Bacterial pneumonia 11/18/2023 12/16/19 24 Fever 11/27/2018 12/11/2018 Encounters Date Type Department Care Team Description 05/31/2024 11:30 AM CDT [facility] [address] [place] [phone] Demetrius Morgan MD Closed odontoid fracture with delayed healing, subsequent encounter (Primary Dx) 05/31/2024 Travel 05/26/2024 10:15 AM CDT [facility] [address] [place] [phone] Vinicius Avalos MD Bilateral sensorineural hearing loss (Primary Dx); Asymmetric SNHL (sensorineural hearing loss) 05/26/2024 9:00 AM CDT [facility] [address] [place] [phone] Honey Manrique, SCIENTIFIC PROCESS OPERATOR 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 Travel 05/13/2024 9:00 AM CDT [facility] [address] [place] [phone] Honey Manrique SLP Presbylaryshay (Primary Dx); Presbyphonia 05/13/2024 Travel 05/06/2024 3:45 PM CDT [facility] [address] [place] [phone] Byron Robins MD Presbylaryshay (Primary Dx); Presbyphonia 05/06/2024 [facility] [address] [place] [address] Deepak Larson MD Refill Request 05/06/2024 Travel 04/11/2024 [facility]ill [facility] [address] [place] [address] Deepak Larson MD Refill Request 04/01/2024 Travel from Last 3 Months Immunizations Immunization Administration Dates Next Due INFLUENZA VACCINE, TRIV. [...] and heating? Not hard at all 11/07/2023 [facility] [place] of Occupat ional Health - Occupational Stress [...] place to sleep or slept in a custodial (including now)? 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 Gender Identity Not on file Sexual Orientation Not on file Last Filed Vital Signs Vital Sign Reading Time Taken Comments Blood Pressure 138/80 05/31/2024 10:46 AM CDT Pulse 65 05/31/2024 10:46 AM CDT Temperature 36.6 C (97.9 F) 05/31/2024 10:46 AM CDT Respiratory Rate 20 12/16/2023 3:18 PM CDT Oxygen Saturation 94% 05/31/2024 10:46 AM CDT Inhaled Oxygen Concentration 21% 11/19/2023 8 :48 PM CDT Weight 81.2 kg (179 lb) 05/31/2024 10:46 AM CDT Height 175.3 cm (5' 9 ) 05/26/2024 10:09 AM CDT Body Mass Index 26.43 05/26/2024 10:09 AM CDT Plan of Treatment Upcoming Encounters Date Type Department Care Team (Late st Contact Info) Description 06/28/2024 2:00 PM CDT Appointment [facility] [address] [place] [address] Demetrius Morgan MD [address] [place] [address] [address] [place] [address] 06/28/2024 2:45 PM CDT [facility] [address] [place] [phone] Demetrius Morgan MD [address] [place] [address] [address] [place] [address] 09/29/2024 10:00 AM CDT [facility] [address] [place] [phone] Honey Manrique, TREMAINE [address] [place] [address] [address] [place] [phone] 09/29/2024 11:00 AM CDT [facility] [address] [place] [phone] Vinicius Avalos MD [address] [place] [address] [place] [address] Health Maintenance Due Date Last Done Comments [...] 2023 12/09/2022, 06/15/2021, 12/21/2020, Additional history exists DEPRESSION SCREENING 02/25/2024 DIABETES - URINE PROTEIN SCREENING 02/25/2024 INFLUENZA VACCINE (Season Ended) 2024 12/09/2022, 12/07/2021, 12/08/2018, Additional history exists DIABETES-HGB A1C 11/03/2024 05/03/2024, 01/2024, 11/03/2023, Additional [...] this topic Medical Devices Implanted Type Area Robot Technician Device Identifier Shelf Expiration Date Model / Serial / Lot Screw 4mm 38mm Spne Jose Eleazar [facility] Ti Implanted:Qty: 1 on 11/14/2023 by Demetrius Morgan MD at [facility] N/A: Spine Cervical [employer] [id number] / / Screw 4mm 38mm Eleazar Lag Spne Jose Ucss Implanted:Qty: 1 on 11/15/2023 by Demetrius Morgan MD at [facility] N/A: Spine Cervical [employer] [id number] / / Procedures Procedure Name Priority Date/Time Associated Diagnosis Comments COMPREHENSIVE METABOLIC PANEL Routine 12/16/2023 6:56 AM CDT HEMOGLOBIN A1C OSMAR 11/06/2023 4:00 AM CDT from Last 3 Months or Most Recently Relevant to Health Maintenance Results * (ABNORMAL) COMPREHENSIVE METABOLIC PANEL (12/16/2023 6:56 AM CDT) BUN 26 7 - 26 mg/dL 12/16/2023 8:[address] [facility] Creatinine 0.74 0.71 - 1.16 mg/dL 12/16/2023 8:14 AM [facility] Sodium 139 136 - 145 mmol/L 12/16/2023 8:14 AM [facility] Potassium 3.6 3.5 - 4.5 mmol/L 12/16/2023 8:14 AM [facility] Chloride 100 98 - 107 mmol/L 12/16/2023 8:14 AM [facility] CO2 29 22 - 29 mmol/L 12/16/2023 8:14 AM [facility] Glucose 224(H) 70 - 115 mg/dL 12/16/2023 8:14 AM [facility] Calcium 9.1 8.4 - 10.2 mg/dL 12/16/2023 8:14 AM [facility] Protein Total 6.8 6.0 - 8.3 g/dL 12/16/2023 8:14 AM [facility] Albumin 3.1(L) 3.4 - 5.0 g/dL 12/16/2023 8:14 AM [facility] Bilirubin Total 0.5 0.2 - 1.2 mg/dL 12/16/2023 8:14 AM [facility] Alkaline Phosphatase 96 40 - 150 U/L 12/16/2023 8:14 AM [facility] ALT 38 5 - 55 U/L 12/16/2023 8:14 AM [facility] AST 38(H) 5 - 34 U/L 12/16/2023 8:14 AM [facility] Anion Gap 10 6 - 16 12/16/2023 8:14 AM [facility] BUN/Creatinine Ratio 35(H) 7 - 23 12/16/2023 8:14 AM CDT [facility] Osmolality Calculated 300(H) 275 - 295 mOsm/kg 12/16/2023 8:14 AM [facility] Albumin/Globulin Ratio 0.8(L) 1.1 - 2.3 12/16/2023 8:14 AM T [facility] eGFR by CKD-EPI >90 >=90 mL/min/1.7 3 m2 12/16/2023 8:14 AM [facility] Blood BLOOD SPECIMEN / Unknown Lab Venipuncture / Unknown 12/16/2023 6:56 AM CDT 12/16/2023 7:48 AM CDT Ananth Murphy EXECUTIVE ASSISTANT TO PRESIDENT-PAIN MEDICINE PHYSICIAN LAB - CHEMISTRY ORDERABL ES Final Result [facility] [address] [place] [address], [facility] [phone] * (ABNORMAL) HEMOGLOBIN A1C (11/06/2023 4:00 AM CDT) Hemoglobin A1c 7.9(H) <=5.6 % 11/06/2023 9:00 AM [facility] Estimated Average Glucose 180 mg/dL 11/06/2023 9:00 AM [facility] Comment: HbA1c Interpretation: Normal : < 5.7% Pre-diabetes: 5.7-6.4% Diabetes: Equal to or greater than 6.5% Test results diagnostic of diabetes should be repeated for confirmation. Treatment target values recommended by ADA and other clinical organizations should be used to evaluate metabolic control in patients. Reference: [place] Diabetes Association, Standards of Care in Diabetes -2020 In patients 70 years and older consider HbA1c target range of 7.0-7.5% (Reference: Jeffy Rachel et al. JAMDA. 2012) The Sebia assay for the measurement of HbA1c is a National Glycohemoglobin Standardization Program (NGSP) certified method. Blood BLOOD SPECIMEN / Unknown Venipuncture / Unknown 11/06/2023 4:00 AM CDT 11/06/2023 4:09 AM CDT us José Miguel Jeronimo MD LAB - CHEMISTRY ORDERABLES F inal Result [facility] [address] [place] [address], [facility] [phone] from Last 3 Months or Most Recently Relevant to Health Maintenance Additional Health Concerns Infection Onset Date Last Indicated MRSA Hx 11/07/2023 11/07/2023 Insurance MEDICARE [facility] MEDICARE [place] [id number] Advance Directives * Full Code (Latest Code Status on File) Date Activated Date Inactivated Comments 11/04/2023 11:12 PM 12/16/2023 8:27 PM * Full Code Date Activated Date Inactivated Comments 11/28/2018 12:22 AM 12/01/2018 1:00 PM Care Teams Boat Patcher Plastic Relationship Specialty Start Date End Date Cipriano Del Cid APRN-NATE [address] [place] [address] PCP - General 12/26/22
--- OUTSIDE RECORDS SUMMARY | 2024-06-17 10:00 | XMS_ITS | Encounter Summary ---
Author Organization Immediately Address 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
--- OUTSIDE RECORDS SUMMARY | 2024-06-17 10:00 | XMS_ITS | Encounter Summary ---
Author Organization [facility] Address 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
--- OUTSIDE RECORDS SUMMARY | 2024-06-17 10:00 | XMS_ITS | Encounter Summary ---
Author Organization [facility] Address [address] [place] [address] Phone Care Team Providers Care Rpg Programmer Name Role Phone Stuart Howe DO Primary Care Provider July Maradiaga MD Unavailable [phone] Bandar Up DPT Unavailable [phone] Esther Garcia PT Unavailable [phone] Encounter Details Date Type Department Care Team (Late st Contact Info) Description 07/16/2022 Documentation [facility] [address] [facility] Advanced Medicine 14th [place] [address] [place] [address] Esther Garcia, PT [address] [facility] [address] [place] [address] Social History Tobacco Use Types [...] on file 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 Gender Identity Male 05/07/2021 12:04 AM CDT Sexual Orientation Straight 06/25/2022 9: 20 AM CDT documented as of this encounter Plan of Treatment Not on file documented as of this encounter Visit Diagnoses Not on filedocumented in this encounter Care Teams Rpg Programmer Relationship Specialty Start Date End Date Stuart Howe DO [address] [place] [address] PCP - General Family Medicine 05/10/21 July Maradiaga MD [address] [place] [address] Consulting Physician Cardiology 03/22/22 Bandar Up DPT [address] [facility] [place] [place] [id number] Physical Therapist Physical Therapy 06/11/22 Esther Garcia PT [address] [facility] [place] [address] [facility] [place], [place] [id number] Physical Therapist Physical Therapy 08/13/22 documented as of this encounter
--- OUTSIDE RECORDS SUMMARY | 2024-06-17 10:00 | XMS_ITS | Clinical Summary ---
Author Organization [facility] Address [address] [address] Phone Care Team Providers Care Hosted Services Analyst Name Role Phone Ehsan Campos MD Primary Care Provider [phone] Madhav Hodges DO Unavailable [phone] Allergies No known active allergies Medications [...] complete this topic Insurance MEDICARE Care Teams Hosted Services Analyst Relationship Specialty Start Date End Date Ehsan Campos MD [address] [place] [address] PCP - General Family Medicine 10/06/15 Madhav Hodges DO [address] [place] [address] Gastroenterology 10/24/15
--- OUTSIDE RECORDS SUMMARY | 2024-06-17 10:00 | XMS_ITS | Encounter Summary ---
Author Organization [employer] Address [address] [place] [address] Care Team Providers Care Information Systems Supervisor Name Role Phone Ehsan Campos MD Primary Care Provider [phone] Encounter Details Date Type Department Care Team (Late st Contact Info) Description 02/05/[address] [facility] Support Serv. (Adt Cardiology-[facility]) [address] 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
--- OUTSIDE RECORDS SUMMARY | 2024-06-17 10:00 | XMS_ITS | Encounter Summary ---
Author Organization [employer] Address 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
== END 2024-06-17 09:18 | disposition home or self-care (01) ==
LOC: CHSIMG 09:18
PROVIDERS: PCP Nurse Practitioner Family; Visit Provider Nurse Practitioner Family
DX: M25.512 Pain in left shoulder (principal); S46.812A Strain of other muscles, fascia and tendons at shoulder and upper arm level, left arm, initial encounter
CPT/HCPCS: 73221

== ENCOUNTER 2024-06-30 09:42 | Outpatient (CLI) | payer MEDICARE, OTHER, SELFPAY ==
--- NOTE | ~2024-06-30 | XR_ITS ---
XR chest 2V Ordering provider: Cipriano Del Cid APRN History: 78 years Male with . SOB,WEAKNESS . Comparison: December 19, 2023 FINDINGS: MEDIASTINUM: The cardiac silhouette is not enlarged. LUNGS: No infiltrates, effusions or pneumothorax. OTHER: No free air under the diaphragm. Degenerative changes of the spine. IMPRESSION: No acute cardiopulmonary pathology. Reviewed, dictated and finalized at location A.
--- OUTSIDE RECORDS SUMMARY | 2024-06-30 10:18 | XMS_ITS | Encounter Summary ---
Author Organization [facility] Address [address] [place] [address] Care Team Providers Care Diet Assistant Name Role Phone Stuart Howe DO Primary Care Provider July Maradiaga MD Unavailable [phone] Bandar Up DPT Unavailable [phone] Esther Garcia PT Unavailable [phone] Reason for Visit * Reason Onset Date Comments [facility] Orders 06/30/2024 Encounter Details Date Type Department Care Team (Late st Contact Info) Description 06/30/2024 Telephone [facility] at [facility] [address] [address], [address] [place] [address] Micheal Blanco MD PhD [address] [place] [address] [employer] Orders Social History Tobacco Use Types Packs/Day Years [...] on file 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 documented in this encounter Plan of Treatment Not on file documented as of this encounter Goals Goal Patient Goal Type Associated Problems Recent Progress Patient-Stated? Author CCM Chronic Pain Care Plan Chronic Care Management No Eloisa Murphy RN Note: Problem: Chronic Pain Goals: 1. Minimize further functional decline 2. Maximize quality of life 3. Control pain Strategies: - Activity/exercise program recommendation - Conservative stepwise pain medicine strategy with multi-disciplinary approach - Recommend healthy lifestyle strategies and compensatory methods as needed Reduce the likelihood of falling Lifestyle No Eloisa Murphy RN Note: Below are four things you can do to prevent falls: Begin an exercise program to improve your leg strength & balance Ask your doctor or pharmacist to review your medicines Get annual eye check-ups & update your eyeglasses Make your home safer by: Removing clutter & tripping hazards Putting railings on all stairs & adding grab bars in the bathroom Having good lighting, especially on stairs Contact your local community or senior dougherty for information on exercise, fall prevention programs, or options for improving home safety. documented as of this encounter Visit Diagnoses Not on filedocumented in this encounter Care Teams Diet Assistant Relationship Specialty Start Date End Date Stuart Howe DO [address] [place] [address] PCP - General Family Medicine 05/10/21 July Maradiaga MD [address] [place] [address] Consulting Physician Cardiology 03/22/22 Bandar Up DPT [address] [facility] [place] [address] [id number] Physical Therapist Physical Therapy 06/11/22 Esther Garcia PT [address] [facility] [place] [address] [phone] Physical Therapist Physical Therapy 08/13/22 documented as of this encounter
--- OUTSIDE RECORDS SUMMARY | 2024-06-30 10:18 | XMS_ITS | Encounter Summary ---
Author Organization [employer] Address [address] [place] [address] Care Team Providers Care Director Of Exhibit Development Name Role Phone Ehsan Campos MD Primary Care Provider [phone] Encounter Details Date Type Department Care Team (Late st Contact Info) Description 06/29/1999 Outpatient Historical [facility] Wilmer Barba MD [address] [place] [phone] Dyspepsia and other specified disorders of function of stomach (Primary Dx) Social History Tobacco Use Types Packs/Day Years Used Date Smoking Tobacco: Never Assessed Sex and Gender Information Value Date Recorded Sex Assigned at Not on file 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
--- OUTSIDE RECORDS SUMMARY | 2024-06-30 10:18 | XMS_ITS | Clinical Summary ---
Author Organization [facility] [employer] Address [address] [place] [address] Care Team Providers Care Decision Science Analyst Name Role Phone Cipriano Del Cid WATCH AND CLOCK REPAIR CLERK-POLICE PATROL OFFICER Primary Care Provider [phone] Source Comments [facility],non-owned Affiliates and Associated Physician Practices is amultiple site organization consisting of ambulatory clinics and hospital sitesin [place], [place], [place] and [place]. This disclosure is being madepursuant to the Care Everywhere program and may not contain all information available regarding this patient. Last updated 17.[facility] [employer] Allergies Active Allergy Reactions Criticality Noted Date Comments Mirtazapine Other 04/15/2024 Medications * Be aware that medications may not be up to date on this document. Alwaysverify current medications with the patient. aspirin (Aspirin) 81 MG chew tablet 1 (one) tablet by Enteral Tube route once daily 4 Active acetaminophen (Tylenol) 160 MG/5ML solution 31.25 mL by Enteral Tube route 3 times daily 4 Active albuterol-ipra tropium (Duo-Neb) 0.5-2.5 (3) MG/3ML nebulizer solution Inhale 3 mL by mouth every 6 hours as needed for Shortness of Breath or Wheezing 4 Active Additional Information Patient taking differently:3 mL InhalationPRN, Shortness of Breath, Wheezing, Reported on 06/28/2024 insulin glargine (Lantus/Semgle e) 100 units/mL pen Inject 38 (thirty eight) Units subcutaneously every morning 4 Active insulin aspart (NovoLOG) pen Inject 0 (zero) Units to 12 (twelve) Units subcutaneously every 6 hours 4 Active atorvastatin (Lipitor) 40 MG tablet 1 (one) tablet by Enteral Tube route at bedtime 4 Active saline nasal spray (Bedford; Baby Ruth) 0.65 % nasal spray Vesper 2 (two) sprays into each nostril every 4 hours 4 Active Additional Information Patient not taking.Reported on 06/28/2024 folic acid (Folvite) 1 MG tablet 1 (one) tablet by Enteral Tube route once daily 4 Active polyethylene glycol 3350 (Miralax) 17 g packet 17 (seventeen) g by Enteral Tube route 2 times daily 4 Active Additional Information Patient not taking.Reported on 06/28/2024 phenol 1.4 % 2 sprays by Mouth/Throat route every 1 hour as needed 4 Active Additional Information Patient not taking.Reported on 06/28/2024 lansoprazole (Prevacid) 30 MG capsule 1 (one) capsule by Per G Tube route daily before breakfast 4 Active doxazosin (Cardura) 1 MG tablet Take 1 (one) tablet by mouth at bedtime 5 Active metoprolol tartrate IR (Lopressor) 25 MG tablet Take 1 (one) tablet by mouth 2 times daily Active rOPINIRole (Requip) 1 MG tablet Take 1 (one) tablet by mouth once daily Active traZODone (Desyrel) 50 MG tablet Take 1 (one) tablet by mouth at bedtime Active clobetasol (Temovate) 0.05 % cream APPLY TOPICALLY TWICE A DAY NEEDED FOR ITCHING FOR 2 WEEK 5 Active nystatin (Mycostatin) 692212 UNIT/ML suspension ADMINISTER 2ML TO EACH CHEEK POUCH EVERY 6 HOURS FOR 10 DAY 5 Active tuberculin PPD (Tubersol) 5 UNIT/0.1ML injection Tuberculin PPD Solution 5 UNIT/0.1ML active 757252 RXNORM 0.1 ml Intradermal every evening shift Routine Inject 0.1 ml intradermally every evening shift every 365 day(s) for Annual TB Monitoring Document administration in immunization tab 12/26/2024 - Active Active Problems Problem Noted Date Diagnosed [...] (05/01/2023): Added automatically from request for surgery [id number] 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 04/19/2020 05/01/2023 [...] 05/11/2014 05/01/2023 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 05/01/2023 Overview (05/01/2023): Coronary arteriosclerosis in hughes artery Resolved Problems Problem Noted Date Diagnosed Date Resolved Date Bacterial pneumonia 11/18/2023 12/16/19 24 Fever 11/27/2018 12/11/2018 Encounters Date Type Department Care Team Description 06/28/2024 2:45 PM CDT Office Visit [facility] - Neurosurgery [address] [place] [phone] Demetrius Morgan MD Closed odontoid fracture with nonunion, subsequent encounter (Primary Dx) 06/28/2024 1:42 PM CDT - 06/28/2024 11:59 PM CDT Hospital Encounter [facility] [address] [place] [address] Demetrius Morgan MD Discharge Disposition: Home or Self Care 06/28/2024 Travel 05/31/2024 11:30 AM CDT Office Visit [facility] - Neurosurgery [address] [place] [phone] Demetrius Morgan MD Closed odontoid fracture with delayed healing, subsequent encounter (Primary Dx) 05/31/2024 Travel 05/26/2024 10:15 AM CDT Office Visit [facility] - ENT [address] [place] [phone] Vinicius Avalos MD Bilateral sensorineural hearing loss (Primary Dx); Asymmetric SNHL (sensorineural hearing loss) 05/26/2024 9:00 AM CDT Office Visit [facility] - ENT [address] [place] [phone] Honey Manrique, ROLL OVER PRESS OPERATOR 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 Travel 05/13/2024 9:00 AM CDT Office Visit [facility] - ENT [address] [place] [phone] Honey Manrique SLP Prestruonglakwaku (Primary Dx); Presbyphonia 05/13/2024 Travel 05/06/2024 3:45 PM CDT Office Visit [facility] - ENT [address] [place] [phone] Byron Robins MD Presbylarynges (Primary Dx); Presbyphonia 05/06/2024 Refill [facility] [address] [place] [phone] Deepak Larson MD Refill Request 05/06/2024 Travel 04/11/2024 Refill [facility] [address] [place] [phone] Depeak Larson MD Refill Request from Last 3 Months Immunizations Immunization Administration [...] 9 Smokeless Tobacco: Never Tobacco Cessation:Counseling Given: No Comments:Quit smoking at the age of 25 [...] and heating? Not hard at all 11/07/2023 [facility] Occupat ional [facility] - Occupational Stress [...] place to sleep or slept in a halfway (including now)? 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 Gender Identity Not on file Sexual Orientation Not on file Last Filed Vital Signs Vital Sign Reading Time Taken Comments Blood Pressure 157/75 06/28/2024 2:53 PM CDT Pulse 71 06/28/2024 2:53 PM CDT Temperature 37.2 C (99 F) 06/28/2024 2:53 PM CDT Respiratory Rate 20 12/16/2023 3:18 PM CDT Oxygen Saturation 99% 06/28/2024 2:53 PM CDT Inhaled Oxygen Concentration 21% 11/19/2023 8 :48 PM CDT Weight 76.7 kg (169 lb) 06/28/2024 2:53 PM CDT Height 175.3 cm (5' 9 ) 06/28/2024 2:53 PM CDT Body Mass Index 24.96 06/28/2024 2:53 PM CDT Plan of Treatment Upcoming Encounters Date Type Department Care Team (Late st Contact Info) Description 09/29/2024 10:00 AM CDT Office Visit [facility] - ENT [address] [place] [phone] Honey Manrique SLP [address] [place] [address] [place] [phone] 09/29/2024 11:00 AM CDT Office Visit [facility] - ENT [address] [place] [phone] Vinicius Avalos MD [address] [place] [address] [address] [place] [address] Health Maintenance Due Date Last Done Comments [...] PCV) 06/19/2023 06/18/2022 COVID-19 VACCINE ( season) 2024 12/30/2023, 12/09/2022, 06/15/2021, Additional history exists DEPRESSION SCREENING 02/25/2024 DIABETES - URINE PROTEIN SCREENING 02/25/2024 DIABETES-HGB A1C 11/03/2024 05/03/2024, 01/2024, 11/03/2023, Additional history exists DIABETES-SERUM CREATININE 05/03/20252024, 12/16/2023, 12/14/2023, Additional history exists INFLUENZA VACCINE Completed 12/30/2023, , 12/07/2021, Additional history exists HEPATITIS B VACCINE Aged [...] this topic Medical Devices Implanted Type Area Production Broacher Device Identifier Shelf Expiration Date Model / Serial / Lot Screw 4mm 38mm Spne Jose Eleazar Ucss Ti Implanted:Qty: 1 on 11/14/2023 by Demetrius Morgan MD at [facility] N/A: Spine Cervical [employer] [id number] / / Screw 4mm 38mm Eleazar Lag Spne Jose Ucss Implanted:Qty: 1 on 11/15/2023 by Demetrius Morgan MD at [facility] N/A: Spine Cervical [employer] [id number] / / Procedures Procedure Name Priority Date/Time Associated Diagnosis Comments CT CERVICAL SPINE WO CONTRAST Routine 06/28/2024 2:18 PM CDT Closed odontoid fracture with delayed healing, subsequent encounter COMPREHENSIVE METABOLIC PANEL Routine 12/16/2023 6:56 AM CDT HEMOGLOBIN A1C OSMAR 11/06/2023 4:00 AM CDT from Last 3 Months or Most Recently Relevant to Health Maintenance Results * CT Cervical Spine Wo Contrast (06/28/2024 2:18 PM CDT) Anatomical Region Laterality Modality Spine Computed Tomogra phy 06/28/2024 2:47 PM CDT Impressions 06/28/2024 4:17 PM CDT IMPRESSION: 1.Redemonstrated postsurgical changes of internal fixation of the type II fracture with 2 transfixing odontoid screws. Interval seen lucencies around the proximal portion of the medial screw and proximal and distal portion of the lateral screw concerning for loosening. Lateral screw tip terminates outside of the dens near the lateral aspect. Interval slight increased width of the anterior fracture line measuring 8 mm (series 6, image 75), and slight posterior malalignment of the odontoid. 2.Redemonstration of postoperative changes of anterior cervical fusion with interbody fusion devices at C4-C6 levels without evidence of instrumentation failure. 3.Multilevel varying degrees of advanced degenerative disc and joint disease. Report dictated by Jose David Braga MD, (Landfill Gas Collection System Operator). I, Nito Prabhakar MD have personally reviewed and interpreted this examination/study. > Interpreting Provider: Nito Prabhakar MD on 06/28/2024 4:17 PM Narrative 06/28/2024 4:17 PM CDT PROCEDURE: CT CERVICAL SPINE WO CONTRAST, DATE/TIME OF EXAM: 06/28/2024 2:19 PM, LOCATION [facility] INDICATION: S12.100G: Closed odontoid fracture with delayed healing, subsequent encounter TECHNIQUE: CT of the cervical spine was performed without contrast according to standard protocol. CT dose reduction technique was used, including Automated Exposure Control. COMPARISON: X-ray cervical spine 12/12/[address] neck soft tissue 11/17/2023 FINDINGS: *Redemonstrated postsurgical changes of internal fixation of the known type II odontoid fracture with 2 transfixing odontoid screws. Interval seen lucencies around the proximal portion of the medial screw and proximal and distal portion of the lateral screw concerning for loosening. Lateral screw tip terminates outside of the dens near the lateral aspect. Interval slight increased width of the anterior fracture line measuring 8 mm (series 6, image 75), and slight posterior malalignment of the odontoid. *Redemonstration of postoperative changes of anterior cervical fusion with interbody fusion devices at C4-C6 levels without evidence of instrumentation failure. *The bones are diffusely demineralized. Multilevel varying degrees of advanced degenerative disc and joint disease. Moderate atlantoaxial joint osteoarthritis. Mild central canal stenosis at C4-5 secondary to degenerative changes. There are varying degrees of advanced facet osteoarthritis. There are varying degrees of advanced uncovertebral joint osteoarthritis with the same degree of neural foraminal stenosis at these levels. Prevertebral soft tissues appear normal. Procedure Note Nito Prabhakar MD - 06/28/2024 PROCEDURE: CT CERVICAL SPINE WO CONTRAST, DATE/TIME OF EXAM: 06/28/2024 2:19 PM, LOCATION [facility] INDICATION: S12.100G: Closed odontoid fracture with delayed healing, subsequent encounter TECHNIQUE: CT of the cervical spine was performed without contrast according to standard protocol. CT dose reduction technique was used, including Automated Exposure Control. COMPARISON: X-ray cervical spine 12/12/[address] neck soft tissue 11/17/2023 FINDINGS: *Redemonstrated postsurgical changes of internal fixation of the knowntype II odontoid fracture with 2 transfixing odontoid screws. Interval seen lucencies around the proximal portion of the medial screw and proximaland distal portion of the lateral screw concerning for loosening. Lateralscrew tip terminates outside of the dens near the lateral aspect. Intervalslight increased width of the anterior fracture line measuring 8 mm (series 6, image 75), and slight posterior malalignment of the odontoid. *Redemonstration of postoperative changes of anterior cervical fusionwith interbody fusion devices at C4-C6 levels without evidence of instrumentation failure. *The bones are diffusely demineralized. Multilevel varying degrees of advanced degenerative disc and joint disease. Moderate atlantoaxialjoint osteoarthritis. Mild central canal stenosis at C4-5 secondary to degenerative changes. There are varying degrees of advanced facet osteoarthritis. There are varying degrees of advanced uncovertebraljoint osteoarthritis with the same degree of neural foraminal stenosis atthese levels. Prevertebral soft tissues appear normal. IMPRESSION: 1.Redemonstrated postsurgical changes of internal fixation of the typeII fracture with 2 transfixing odontoid screws. Interval seen lucenciesaround the proximal portion of the medial screw and proximal and distal portionof the lateral screw concerning for loosening. Lateral screw tip terminates outside of the dens near the lateral aspect. Interval slight increased width of the anterior fracture line measuring 8 mm (series 6, image 75), and slight posterior malalignment of the odontoid. 2.Redemonstration of postoperative changes of anterior cervical fusionwith interbody fusion devices at C4-C6 levels without evidence of instrumentation failure. 3.Multilevel varying degrees of advanced degenerative disc and joint disease. Report dictated by Jose David Braga MD, (Landfill Gas Collection System Operator). I, Nito Prabhakar MD have personally reviewed and interpreted this examination/study. > Interpreting Provider: Nito Prabhakar MD on 06/28/2024 4:17 PM us Demetrius Morgan MD CT ORDERABLES Final Re sult * (ABNORMAL) COMPREHENSIVE METABOLIC PANEL (12/16/2023 6:56 AM CDT) BUN 26 7 - 26 mg/dL 12/16/2023 8:14 AM [facility] Creatinine 0.74 0.71 - 1.16 mg/dL 12/16/2023 8:14 AM [facility] Sodium 139 136 - 145 mmol/L 12/16/2023 8:14 AM [facility] Potassium 3.6 3.5 - 4.5 mmol/L 12/16/2023 8:14 AM [facility] Chloride 100 98 - 107 mmol/L 12/16/2023 8:14 AM [facility] CO2 29 22 - 29 mmol/L 12/16/2023 8:14 AM [facility] Glucose 224(H) 70 - 115 mg/dL 12/16/2023 8:14 AM [facility] Calcium 9.1 8.4 - 10.2 mg/dL 12/16/2023 8:14 AM [facility] Protein Total 6.8 6.0 - 8.3 g/dL 12/16/2023 8:14 AM [facility] Albumin 3.1(L) 3.4 - 5.0 g/dL 12/16/2023 8:14 AM [facility] Bilirubin Total 0.5 0.2 - 1.2 mg/dL 12/16/2023 8:14 AM [facility] Alkaline Phosphatase 96 40 - 150 U/L 12/16/2023 8:14 AM [facility] ALT 38 5 - 55 U/L 12/16/2023 8:14 AM [facility] AST 38(H) 5 - 34 U/L 12/16/2023 8:14 AM [facility] Anion Gap 10 6 - 16 12/16/2023 8:14 AM [facility] BUN/Creatinine Ratio 35(H) 7 - 23 12/16/2023 8:14 AM [facility] Osmolality Calculated 300(H) 275 - 295 mOsm/kg 12/16/2023 8:14 AM [facility] Albumin/Globulin Ratio 0.8(L) 1.1 - 2.3 12/16/2023 8:14 AM [facility] eGFR by CKD-EPI >90 >=90 mL/min/1.7 3 m2 12/16/2023 8:14 AM [facility] Blood BLOOD SPECIMEN / Unknown Lab Venipuncture / Unknown 12/16/2023 6:56 AM CDT 12/16/2023 7:48 AM T us Ananth Murphy WATCH AND CLOCK REPAIR CLERK-POLICE PATROL OFFICER LAB - CHEMISTRY ORDERABL ES Final Result Performing Organization Address City/State/[facility] Co de Phone Number [facility] [address] [place] [phone], [facility] [phone] * (ABNORMAL) HEMOGLOBIN A1C (11/06/2023 4:00 AM [facility]) Hemoglobin A1c 7.9(H) <=5.6 % 11/06/2023 9:00 AM [facility] Estimated Average Glucose 180 mg/dL 11/06/2023 9:00 AM [facility] Comment: HbA1c Interpretation: Normal : < 5.7% Pre-diabetes: 5.7-6.4% Diabetes: Equal to or greater than 6.5% Test results diagnostic of diabetes should be repeated for confirmation. Treatment target values recommended by ADA and other clinical organizations should be used to evaluate metabolic control in patients. Reference: [place] Diabetes Association, Standards of Care in Diabetes [...] LAB - CHEMISTRY ORDERABLES F inal Result [facility] [address] [place] [address], [facility] [phone] from Last 3 Months or Most Recently Relevant to Health Maintenance Additional Health Concerns Infection Onset Date Last Indicated MRSA Hx 11/07/2023 11/07/2023 Insurance MEDICARE [facility] [place] [id number] MEDICARE Advance Directives * Full Code (Latest Code Status on File) Date Activated Date Inactivated Comments 11/04/2023 11:12 PM 12/16/2023 8:27 PM * Full Code Date Activated Date Inactivated Comments 11/28/2018 12:22 AM 12/01/2018 1:00 PM Care Teams Decision Science Analyst Relationship Specialty Start Date End Date Cipriano Del Cid APRN-NATE [address] [place] [address] PCP - General 12/26/22
--- OUTSIDE RECORDS SUMMARY | 2024-06-30 10:18 | XMS_ITS | Clinical Summary ---
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 Gender Identity Not on file Sexual Orientation [...] 11/29/2018, 05/10/2014 Medical Devices Implanted Type Area Revenue Cycle Manager Device Identifier Shelf Expiration Date Model / Serial / Lot Rick Xpdm Crv W/Line 75mm [id number] - [id number] Implanted:Qty : 2 on 05/10/2014 by Alban Boyd MD at [facility] Rick N/A: Spine Lumbar [employer]- [employer] 5 / / Description:Load 312 April 24 Screw Set Inner [id number] - [id number] Implanted:Qty : 6 on 05/10/2014 by Alban Boyd MD at [facility] Screw [employer]- [employer] 0 / / Description:Load 39 2014 Screw Xpdm Fa 6.0x45mm [id number] - [id number] Implanted:Qty : 1 on 05/10/2014 by Alban Boyd MD at [facility] Screw [employer]- [employer] 5 / / Description:Load 39 April 25, 2014 Screw Xpdm Fa 7.0x45mm [id number] - [id number] Implanted:Qty : 5 on 05/10/2014 by Alban Boyd MD at [facility] Screw [employer]- [employer] 5 / / Description:Load 39 2014 Sealant Floseal W/ Adptr 10ml [id number] - [id number] Implanted:Qty : 1 on 05/10/2014 by Alban Boyd MD at [facility] Sealant N/A: Back [employer]- [employer] 07/24/2015 [id number] / / [id number] Sealant Floseal W/ Adptr 10ml [id number] - [id number] Implanted:Qty : 1 on 09/04/2015 by Aixa Tamayo MD at [facility] Sealant N/A: Spine Lumbar MEREDITH- [employer] 12/24/2016 [id number] / / [id number] Cross Cnnctr Xpdm Sfx 5.5 Ti [id number] - [id number] Implanted:Qty : 1 on 05/10/2014 by Alban Boyd MD at [facility] Spine N/A: Spine Lumbar [employer] 6 / / Description:Load 311 April Explanted Type Area Revenue Cycle Manager Device Identifier Shelf Expiration Date Model / Serial / Lot Screw Xpdm Fa 7.0x45mm [id number] - [id number] Implanted:Alban Morillo MD (Quantity not on file) Explanted:Qty: 1 on 05/10/2014 at [facility] Screw [employer]J- [employer] [id number] / / Description:Load 39 April 25, 2014 Procedures Procedure Name Priority Date/Time Associated Diagnosis Comments HEMOGLOBIN A1C Add on 05/10/2014 5:32 PM CDT from Last 3 Months or Most Recently Relevant to Health Maintenance Results * (ABNORMAL) HEMOGLOBIN A1C (05/10/2014 5:32 PM CDT) HEMOGLOBIN A1C 6.6(H) 4.1 - 6.1 % of Hgb [facility] EST. AVG GLUCOSE, A1C 143 mg/dL [facility] Comment:Based on the ADAG st udy equation. Blood 05/10/2014 5:32 PM CDT 05/12/2014 6:49 PM CDT Narrative [facility] - 05/12/2014 6:50 PM CDT If not available from last three months us Chang Kidd MD CHEMISTRY ORDERABLES Final Resul t [facility]# [id number] [address] [place] [address] from Last 3 Months or Most Recently Relevant to Health Maintenance Insurance MEDICARE PART A AND B [facility] Advance Directives For more information, please contact: [phone] * Full Code (Latest Code Status on [...] 9:40 AM 05/10/2014 10:26 AM Care Teams Department Of Sociology Chair Relationship Specialty Start Date End Date Ehsan Campos MD [address] [place], [phone] PCP - General 01/14/03
--- OUTSIDE RECORDS SUMMARY | 2024-06-30 10:18 | XMS_ITS | Clinical Summary ---
Author Organization [facility] Address [address] [place] [address] Care Team Providers Care Planning Engineer Name Role Phone Stuart Howe DO Primary Care Provider July Maradiaga MD Unavailable [phone] Bandar Up DPT Unavailable [phone] Esther Garcia PT Unavailable [phone] Allergies No known active allergies Medications aspirin [...] TDD 70 units 30 mL 11 08/20/19 Active insulin glargine 100 unit/mL (3 mL) pen for injectionIndic ations:Steroid -induced hyperglycemia, Type 2 diabetes mellitus with hyperglycemia, with long-term current use of insulin (HCC) Inject 24 Units under the skin daily 15 mL 3 08/06/19 24 Active Additional Information Patient taking differently: 15 Unitssubcutaneous Daily, Reported on 06/17/2024 NovoLOG 100 unit/mL (3 mL) pen for [...] Active Problems Problem Noted Date Diagnosed Date Chronic painful diabetic neuropathy 06/24/2024 Intractable neuropathic pain of lower extremity 06/17/2024 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 Hip pain 04/18/2022 Moderate malnutrition 04/16/2022 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 Overview (03/22/2022): Added automatically from request for surgery [id number] Essential (primary) hypertension 04/19/2020 Chronic back pain 04/19/2020 Hyperlipemia 05/11/2014 Sleep apnea 05/11/2014 Spinal stenosis 05/11/2014 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 Overview (04/18/2022): Coronary arteriosclerosis in [place] artery Type 2 diabetes mellitus wit h hyperglycemia, with long-term current use of insulin On methylprednisolone therapy IgA deficiency IgM deficiency Persistent 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 complication Encounters Date Type Department Care Team Description 06/30/2024 Telephone [facility] [address] [place] [address] Micheal Blanco MD PhD Qutenza Orders 06/24/2024 Telephone [facility] [address], [address] [place] [address] Micheal Blanco MD PhD 06/17/2024 12:57 PM CDT - 06/17/2024 11:59 PM CDT Hospital Encounter [facility] [address] [place] [address] Micheal Blanco MD PhD Intractable neuropathic pain of lower extremity (Primary Dx); Mononeuropathy multiplex syndrome; Chronic low back pain, unspecified back pain laterality, unspecified whether sciatica present; Chronic painful diabetic neuropathy (HCC) Discharge Disposition: Discharge to home or self care 06/17/2024 Telephone [facility] at [address] [place] [address] Micheal Blanco MD PhD PREQUTENZA CALL 05/14/2024 Telephone [facility] at [address] [place] [address] Delia Washington, ESCOBAR PMC Intake Assessment 05/13/2024 1:30 PM CDT Office Visit [facility] Neuro Muscle [address] [place] [address] [place] [address] Wellington Alva MD PhD Peripheral nerve injury (Primary Dx); Mononeuropathy multiplex syndrome; Spinal stenosis of lumbar region, unspecified whether neurogenic claudication present; Chronic low back pain, unspecified back pain laterality, unspecified whether sciatica present 05/10/2024 Orders Only [facility] Endocrinology Metabolism and Lipid [address] [place] [address] [place] [address] Jazzy Alvarado RMA Type 2 diabetes mellitus with hyperglycemia, without long-term current use of insulin (HCC) 05/03/2024 11:00 AM CDT Office Visit 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 Gender Identity Male 05/07/2021 12:04 AM CDT Sexual Orientation Straight 06/25/2022 9: 20 AM CDT Obstetrics History Last Filed Vital Signs Vital Sign Reading Time Taken Comments Blood Pressure 138/65 06/17/2024 1:04 PM CDT Pulse 72 06/17/2024 1:04 PM CDT Temperature 36.5 C (97.7 F) 06/17/2024 1:04 PM CDT Respiratory Rate 18 06/17/2024 1:04 PM CDT Oxygen Saturation 96% 06/17/2024 1:04 PM CDT Inhaled Oxygen Concentration - - Weight 78 kg (172 lb) 06/17/2024 1:04 PM CDT Height 172.7 cm (5' 8 [...] Visit 65+ 2010 Depression Screening 04/09/2023 04/09/2022 Pneumococcal vaccine 65+ (2 of 2 - PCV) 06/19/2023 06/18/2022 Covid-19 Vaccine (5 - 2023-2 5 season) 2024 12/30/2023, 12/21/2020, 05/05/2020, Additional history exists Albumin Creatinine Ratio, Urine 04/27/2024 Lipid Panel 04/27/2024 04/28/2023, 03/28, 03/31/2013 eGFR 04/27/2024 04/28/2023, 05/25, 04/17/2022, Additional history exists Hemoglobin A1C 11/03/2024 05/03/2024, 10/25, 11/03/2023, Additional history exists Fall Risk Assessment 06/17/2025 06/17/2024, 04/18/19 Abdominal Aortic Aneurysm (A AA) Screen Completed 11/04/2023 Influenza Vaccine Completed 12/30/2023, , 10/20/2017, Additional history exists Goals Goal Patient Goal Type Associated Problems Recent Progress Patient-Stated? Author CCM Chronic Pain Care Plan Chronic Care Management Eloisa Pardo, RN Note: Problem: Chronic Pain Goals: 1. Minimize further functional decline 2. Maximize quality of life 3. Control pain Strategies: - Activity/exercise program recommendation - Conservative stepwise pain medicine strategy with multi-disciplinary approach - Recommend healthy lifestyle strategies and compensatory methods as needed Reduce the likelihood of falling Lifestyle Eloisa Pardo RN Note: Below are four things you [...] on stairs Contact your local community or [facility] for information on exercise, fall prevention programs, or options for improving home safety. Medical Devices Implanted Type Area Final Assembler Device Identifier Shelf Expiration Date Model / Serial / Lot Stent Implanted:Qty: 3 Stent N/A: Heart [employer] Advance 3-4mm 50mm Allograft Graft Nerve Sterile [id number] - [id number] - [id number] Implanted:Qty: 1 on 03/29/2022 by Jacquie Sol MD at [facility] Left: Leg [employer] 05/24/2024 [id number] / [id number] / [id number] [employer] Weck Horizon Ligate Triangulate Cross Section Wire Small Wide Latex Free [id number] - [id number] Implanted:Qty: 2 on 03/29/2022 by Jacquie Sol MD at [facility] Left: Leg [employer] 09/28/2026 [id number] / / Procedures Procedure Name Priority Date/Time Associated Diagnosis Comments POCT HEMOGLOBIN A1C Routine 05/03/2024 1 0:52 AM CDT Type 2 diabetes mellitus with hyperglycemia, without long-term current use of insulin (HCC) POCT GLUCOSE 03141 Routine 05/03/2024 10 :47 AM CDT Type 2 diabetes mellitus with hyperglycemia, without long-term current use of insulin (HCC) COMPREHENSIVE METABOLIC PANEL Routine 04/28/2023 10:22 AM VIDEO TAPE EDITOR Type 2 diabetes mellitus with hyperglycemia, with long-term current use of insulin (HCC) LIPID PANEL Routine 04/28/2023 10:22 AM VIDEO TAPE EDITOR Type 2 diabetes mellitus with hyperglycemia, with long-term current use of insulin (HCC) ALBUMIN CREATININE RATIO, URINE Routine 04/28/2023 10:22 AM VIDEO TAPE EDITOR Type 2 diabetes mellitus with hyperglycemia, with [...] Albumin Creatinine Ratio, Urine (04/28/2023 10:22 AM VIDEO TAPE EDITOR) Microalb, Ur 13.1 0.0 - 22.9 mg/L [facility] Random Urine Creatinine 254.3 mg/dL [facility] Microalb/Creat Ratio 5.2 0.0 - 29.9 mg/g [facility] Urine 04/28/2023 10:2 2 AM VIDEO TAPE EDITOR 04/28/2023 11:23 AM VIDEO TAPE EDITOR Gladys Box MD LAB URINE ORDERABLES Final Re sult [facility] * (ABNORMAL) Lipid panel (04/28/2023 10:22 AM VIDEO TAPE EDITOR) Triglycerides 165(H) <150 mg/dL [facility] [...] are elevated. Blood 04/28/2023 10:2 2 AM VIDEO TAPE EDITOR 04/28/2023 11:23 AM VIDEO TAPE EDITOR Narrative [facility] - 04/28/2023 1:22 PM VIDEO TAPE EDITOR Current interpretive data was last updated January 26, 2021. For adults ages 40-79, the ACC/AHA recommends discussing your 10-year atherosclerotic cardiovascular disease risk with your health care provider. [email or web address]://[email or web address].org/ASCVDApp us Gladys Box MD LAB BLOOD ORDERABLES Final Re sult [facility] * (ABNORMAL) Comprehensive metabolic panel (04/28/2023 10:22 AM VIDEO TAPE EDITOR) Total Protein 7.2 6.1 - 8.4 g/dL [...] [facility] Blood 04/28/2023 10:2 2 AM VIDEO TAPE EDITOR 04/28/2023 11:23 AM VIDEO TAPE EDITOR Gladys Box MD LAB BLOOD ORDERABLES Final Re sult [facility] from Last 3 Months or Most Recently Relevant to Health Maintenance Insurance MEDICARE [facility] MEDICARE [facility] MEDICARE [facility] Member Subscriber Plan / Payer (Ef fective 2014-Present) Name:Gavin Fenton Relation to Subscriber:Self Name:Gavin Fenton Payer ID:[id number] Group ID:Not on file Type:[employer] Address: [address] [place] [id number] Advance Directives For more information, please contact: [phone] * Full Code (Latest Code Status on File) Date Activated Date Inactivated Comments 04/15/2022 4:03 PM 04/18/2022 9:50 PM * Full Code Date Activated Date Inactivated Comments 03/29/2022 4:51 PM 03/30/2022 7:50 PM Care Teams Planning Engineer Relationship Specialty Start Date End Date Stuart Howe DO [address] [place] [address] PCP - General Family Medicine 05/10/21 July Maradiaga MD [address] [place] [address] Consulting Physician Cardiology 03/22/22 Bandar Up DPT [address] [address] Physical Therapist Physical Therapy 06/11/22 Esther Garcia, PT [id number] [place] [address] Physical Therapist Physical Therapy 08/13/22
--- OUTSIDE RECORDS SUMMARY | 2024-06-30 10:18 | XMS_ITS | Encounter Summary ---
Author Organization [employer] Address 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
--- OUTSIDE RECORDS SUMMARY | 2024-06-30 10:18 | XMS_ITS | Encounter Summary ---
Author Organization [facility] Address [address] [place] [address] Phone Care Team Providers Care Hvac Mechanical Engineer Name Role Phone Stuart Howe DO Primary Care Provider July Maradiaga MD Unavailable [phone] Bandar Up DPT Unavailable [phone] Esther Garcia PT Unavailable [phone] Encounter Details Date Type Department Care Team (Late st Contact Info) Description 02/01/2022 Telephone [facility] Scheduling [address] [place] [address] Galilea Esteban CMA Social History Tobacco Use Types Packs/Day Years Used Date Smoking Tobacco: Former Cigarettes Q uit: 02/25/1964 Alcohol Use Standard Drinks/Week Comments No 0 (1 standard drink = 0.6 oz pur e alcohol) Sex and Gender Information Value Date Recorded Sex Assigned at Not on file 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 Gender Identity Male 05/07/2021 12:04 AM CDT Sexual Orientation Straight 06/25/2022 9: 20 AM CDT documented as of this encounter Plan of Treatment Not on file documented as of this encounter Visit Diagnoses Not on filedocumented in this encounter Care Teams Hvac Mechanical Engineer Relationship Specialty Start Date End Date Stuart Howe DO [address] [place] [address] PCP - General Family Medicine 05/10/21 July Maradiaga MD [address] [place] [address] Consulting Physician Cardiology 03/22/22 Bandar Up, RADHAT [address] [facility] [address] [address] Physical Therapist Physical Therapy 06/11/22 Esther Garcia, PT [address] [facility] [address] [address] [address] Physical Therapist Physical Therapy 08/13/22 documented as of this encounter
--- OUTSIDE RECORDS SUMMARY | 2024-06-30 10:18 | XMS_ITS | Continuity of Care Document ---
Author Organization [facility] Address [address] [place] [address] Phone Care Team Providers Care Kindergarten Paraprofessional Name Role Phone Makeda Haynes Unavailable Unavailable Procedures Procedure Date Eye Exam & Treatment Refraction Eye Exam & Treatment Refraction Eye Exam & Treatment Refraction Advance Directives Directive Yes / No Effective Date File Name No Information Encounters Encounter Description Practice Location Reason(s) For Visit Diagnoses Date Provider Providers Copied on Encounter [facility], [address] [place] [address] [address], [place], [place], [id number], tel:[phone] [facility] No Information June-0 4-201 0 Ivy Ashford. [address] , [address], [place], [place], [facility], [place]. tel:[phone] [facility], [address] [place] [address] [address], [place], [place], [id number], tel:[phone] [facility] No Information June-0 1-200 9 Ivy Ashford. [address] , [address], [place], [address], [place]. tel:[phone] [facility], [address] [place] [address] [address], [place], [place], [address], tel:[phone] [facility] No Information Apr- 4-200 8 Ivy Ashford. [address] , [address], [place], [address], [place]. tel:[phone] Family History Family Member Type Diagnosis Age At Onset No Information Payers Payer name Insurance type Covered green party ID Authoriza tion(s) No Information Social History [...]
--- OUTSIDE RECORDS SUMMARY | 2024-06-30 10:18 | XMS_ITS | Clinical Summary ---
Author Organization [facility] Address [address] [address] Phone Care Team Providers Care Booker Name Role Phone Ehsan Campos MD Primary Care Provider [phone] Madhav Hodges DO Unavailable [phone] Allergies No known active allergies Medications polyethylene [...] complete this topic Insurance MEDICARE Care Teams Booker Relationship Specialty Start Date End Date Ehsan Campos MD [address] [place] [address] PCP - General Family Medicine 10/06/15 Madhav Hodges DO [address] [place] [address] Gastroenterology 10/24/15
--- OUTSIDE RECORDS SUMMARY | 2024-06-30 10:18 | XMS_ITS | Encounter Summary ---
Author Organization [facility] Address 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 Gender Identity Not on file Sexual Orientation [...] OF CARE TESTING Edited Performing Organization Address City/[facility] Co de Phone Number INTERFACE SYSTEM Refer to clinic/hospital department * (ABNORMAL) POC GLUCOSE (06/30/2006 8:12 PM CDT) COMMENT, GLU POC Notified RN INTERFACE SYSTEM GLUCOSE POC 286(H) 65 - 99 mg/dL INTERFACE SYSTEM 06/30/2006 8:12 PM CDT Wellington Mendoza MD POINT OF CARE TESTING Edited Performing Organization Address [facility] de Phone Number INTERFACE SYSTEM Refer to clinic/hospital department * (ABNORMAL) POC GLUCOSE (06/30/2006 5:01 PM CDT) COMMENT, GLU POC Notified RN INTERFACE SYSTEM GLUCOSE POC 227(H) 65 - 99 mg/dL INTERFACE SYSTEM 06/30/2006 5:01 PM CDT Wellington Mendoza MD POINT OF CARE TESTING Edited Performing Organization Address [facility] de Phone Number INTERFACE SYSTEM Refer to clinic/hospital department * (ABNORMAL) POC GLUCOSE (06/30/2006 11:58 AM CDT) COMMENT, GLU POC Notified RN INTERFACE SYSTEM GLUCOSE POC 180(H) 65 - 99 mg/dL INTERFACE SYSTEM 06/30/2006 11:5 8 AM CDT us Wellington Mendoza MD POINT OF CARE TESTING Edited Performing Organization Address City/[facility] Co de Phone Number INTERFACE SYSTEM Refer to clinic/hospital department * (ABNORMAL) POC GLUCOSE (06/30/2006 9:10 AM CDT) GLUCOSE POC 165(H) 65 - 99 mg/dL INTERFACE SYSTEM 06/30/2006 9:10 AM CDT us Wellington Mendoza MD POINT OF CARE TESTING Edited Performing Organization Address [facility] de Phone Number INTERFACE SYSTEM Refer to clinic/hospital department * (ABNORMAL) POC GLUCOSE (06/30/2006 5:56 AM CDT) GLUCOSE POC 138(H) 65 - 99 mg/dL INTERFACE SYSTEM 06/30/2006 5:56 AM CDT us Wellingtno Mendoza MD POINT OF CARE TESTING Edited Performing Organization Address [facility] de Phone Number INTERFACE SYSTEM Refer to [...] and non- Americans is available on the [facility] Intranet at: [email or web address] Select: Lab Policies and Procedures Select: Reference Ranges - GFR 06/27/2006 11:1 7 AM CDT us Wellington Mendoza MD CHEMISTRY ORDERABLES Edited Performing Organization Address [facility] de Phone Number INTERFACE SYSTEM Refer to [...] Primary documented in this encounter Care Teams Sandblaster Stone Relationship Specialty Start Date End Date Ehsan Campos MD [address] [place] [address] PCP - General 01/14/03 documented as of this encounter
--- OUTSIDE RECORDS SUMMARY | 2024-06-30 10:18 | XMS_ITS | Encounter Summary ---
Author Organization [employer] Address [address] [place] [address] Care Team Providers Care Enterer Name Role Phone Ehsan Campos MD Primary Care Provider [phone] Encounter Details Date Type Department Care Team (Late st Contact Info) Description 02/05/[address] [facility]) [address] 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
--- OUTSIDE RECORDS SUMMARY | 2024-06-30 10:18 | XMS_ITS | Encounter Summary ---
Author Organization [employer] Address 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
--- OUTSIDE RECORDS SUMMARY | 2024-06-30 10:18 | XMS_ITS | Encounter Summary ---
Author Organization [email or web address] Address 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 Gender Identity Not on file Sexual [...] INTERFACE SYSTEM 06/10/2006 1:47 PM CDT Result [facility] Wellington Mendoza MD HEMATOLOGY ORDERABLES Edited Performing Organization Address [facility] Phone Number INTERFACE SYSTEM Refer to clinic/hospital department * TOTAL PROTEIN, CSF (06/10/2006 1:47 PM CDT) PROTEIN, CSF 43 15 - 45 mg/dL INTERFACE SYSTEM 06/10/2006 1:47 PM CDT Wellington Mendoza MD BODY FLUIDS AND STOOLS Edited Performing Organization Address [facility] Phone Number INTERFACE SYSTEM Refer to clinic/hospital department * (ABNORMAL) GLUCOSE, CSF (06/10/2006 1:47 PM CDT) GLUCOSE, CSF 75(H) 40 - 70 mg/dL INTERFACE SYSTEM 06/10/2006 1:47 PM CDT Wellington Mendoza MD BODY FLUIDS AND STOOLS Edited Performing Organization Address [facility] INTERFACE SYSTEM Refer to clinic/hospital department * [...] FLUIDS AND STOOLS Edited Performing Organization Address [facility] Phone Number INTERFACE SYSTEM Refer to clinic/hospital [...] and non- Americans is available on the [facility] Intranet at: [email or web address] Select: Lab Policies and Procedures Select: Reference Ranges - GFR 06/10/2006 10:3 5 AM CDT us Wellington Mendoza MD CHEMISTRY ORDERABLES Edited Performing Organization Address City/[facility]/ZIP Co de Phone Number INTERFACE SYSTEM Refer to clinic/hospital department * HEMOGLOBIN AND HEMATOCRIT (06/10/2006 10:35 AM CDT) HEMOGLOBIN 14.5 13.6 - 16.5 g/dL INTERFACE SYSTEM HEMATOCRIT 42.3 40.0 - 48.0 % INTERFACE SYSTEM 06/10/2006 10:3 5 AM CDT us Wellington Mendoza MD HEMATOLOGY ORDERABLES Edited Performing Organization Address [facility]/State/ZIP Co de Phone Number INTERFACE SYSTEM Refer to clinic/hospital department documented in this encounter Visit Diagnoses Diagnosis Cervicalgia- Primary documented in this encounter Care Teams Community Pharmacist Relationship Specialty Start Date End Date Ehsan Campos MD [address] [place] [address] PCP - General 01/14/03 documented as of this encounter
--- OUTSIDE RECORDS SUMMARY | 2024-06-30 10:18 | XMS_ITS | Referral Summary ---
Author Organization [facility] Address [address] [place] [address] Care Team Providers Care Potline Monitor Name Role Phone Stuart Howe DO Primary Care Provider July Maradiaga MD Unavailable [phone] Bandar Up DPT Unavailable [phone] Esther Garcia PT Unavailable [phone] Encounters Date Type Department Care Team Description 06/30/2024 Telephone [facility] at [address], [address] [place] [address] Micheal Blanco MD PhD Qutenza Orders 06/24/2024 Telephone [facility] at [address], [address] [place] [address] Micheal Blanco MD PhD 06/17/2024 Telephone [facility] at [address], [address] [place] [address] Micheal Blanco MD PhD PREQUTENZA CALL 06/17/2024 12:57 PM CDT - 06/17/2024 11:59 PM CDT Hospital Encounter [facility] at [address], [address] [place] [phone] Micheal Blanco MD PhD Intractable neuropathic pain of lower extremity (Primary Dx); Mononeuropathy multiplex syndrome; Chronic low back pain, unspecified back pain laterality, unspecified whether sciatica present; Chronic painful diabetic neuropathy (HCC) Discharge Disposition: Discharge to home or self care 05/14/2024 Telephone [facility] Management [facility] at [address], [address] [place] [address] Delia Washington RN PMC Intake Assessment 05/13/2024 1:30 PM CDT Office Visit [facility] Neuro Muscle [address] 6th [place] [address] Wellington Alva MD PhD Peripheral nerve injury (Primary Dx); Mononeuropathy multiplex syndrome; Spinal stenosis of lumbar region, unspecified whether neurogenic claudication present; Chronic low back pain, unspecified back pain laterality, unspecified whether sciatica present 05/10/2024 Orders Only [facility] Endocrinology Metabolism and Lipid [address] 13th [place] [address] Jazzy Alvarado RMA Type 2 diabetes mellitus with hyperglycemia, without long-term current use of insulin (HCC) 05/03/2024 11:00 AM CDT Office Visit [facility] Endocrinology Metabolism and Lipid [address] 13th [place] [address] [place] [address] Gladys Box MD Type 2 diabetes mellitus with hyperglycemia, without long-term current use of insulin (HCC) (Primary Dx); Steroid-induced hyperglycemia; Type 2 diabetes mellitus with hyperglycemia, with long-term current use of insulin (HCC) from Last 3 Months Allergies No known active allergies Medications aspirin 81 mg enteric coated tablet Take 1 tablet (81 mg total) by mouth daily with breakfast Active albuterol HFA (PROVENTIL HFA,VENTOLIN HFA,PROAIR HFA) 90 mcg/actuation inhaler Inhale 2 puffs every 6 (six) hours as needed for wheezing or shortness of breath 08/20/19 Active folic acid (FOLVITE) 1 mg tablet Take 1 tablet (1,000 mcg total) by mouth every morning 01/24/20 Active acetaminophen (TYLENOL) 500 mg tablet Take [...] BY MOUTH DAILY FOR 3 MONTHS 04/09/19 Active pen needle, diabetic 32 gauge x needleIndicati ons:Type 2 diabetes mellitus with hyperglycemia, without long-term current use of insulin (HCC) Use as directed with basal, bolus, and correction insulin 5 to 6 times a day. 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 Author CCM Chronic Pain Care Plan Chronic Care Management No Eloisa Murphy, ESCOBAR Note: Problem: Chronic Pain Goals: 1. Minimize further functional decline 2. Maximize quality of life 3. Control pain Strategies: - Activity/exercise program recommendation - Conservative stepwise pain medicine strategy with multi-disciplinary approach - Recommend healthy lifestyle strategies and compensatory methods as needed Reduce the likelihood of falling Lifestyle No Eloisa Murphy, RN Note: Below are four things you [...] stairs Contact your local community or senior center for information on exercise, fall prevention programs, or options for improving home safety. Medical Devices Implanted Type Area Nut Picker Device Identifier Shelf Expiration Date Model / Serial / Lot Stent Implanted:Qty: 3 Stent N/A: Heart [employer] Advance 3-4mm 50mm Allograft Graft Nerve Sterile [id number] - [id number] - [id number] Implanted:Qty: 1 on 03/29/2022 by Jacquie Sol MD at [facility] Left: Leg [employer] 05/24/2024 [id number] / [id number] / [id number] [employer] Weck Horizon Ligate Triangulate Cross Section Wire Small Wide Latex Free [id number] - [id number] Implanted:Qty: 2 on 03/29/2022 by Jacquie Sol MD at [facility] Left: Leg [employer] 09/28/2026 [id number] / / Procedures Procedure Name Priority Date/Time Associated Diagnosis Comments POCT HEMOGLOBIN A1C Routine 05/03/2024 1 0:52 AM CDT Type 2 diabetes mellitus with hyperglycemia, without long-term current use of insulin (HCC) POCT GLUCOSE [id number] Routine 05/03/2024 10 :47 AM CDT Type 2 diabetes mellitus with hyperglycemia, without long-term current use of insulin (HCC) COMPREHENSIVE METABOLIC PANEL Routine 04/28/2023 10:22 AM TYRE FITTER Type 2 diabetes mellitus with hyperglycemia, with long-term current use of insulin (HCC) LIPID PANEL Routine 04/28/2023 10:22 AM TYRE FITTER Type 2 diabetes mellitus with hyperglycemia, with long-term current use of insulin (HCC) ALBUMIN CREATININE RATIO, URINE Routine 04/28/2023 10:22 AM TYRE FITTER Type 2 diabetes mellitus with hyperglycemia, with [...] Albumin Creatinine Ratio, Urine (04/28/2023 10:22 AM TYRE FITTER) Pathologist [facility] Microalb, Ur 13.1 0.0 - 22.9 mg/L [facility] Random Urine Creatinine 254.3 mg/dL [facility] Microalb/Creat Ratio 5.2 0.0 - 29.9 mg/g [facility] Urine 04/28/2023 10:2 2 AM TYRE FITTER 04/28/2023 11:23 AM TYRE FITTER us Gladys Box MD LAB URINE ORDERABLES Final Re sult [facility] * (ABNORMAL) Lipid panel (04/28/2023 10:22 AM TYRE FITTER) Pathologist [facility] Triglycerides 165(H) <150 mg/dL [facility] [...] are elevated. Blood 04/28/2023 10:2 2 AM TYRE FITTER 04/28/2023 11:23 AM TYRE FITTER Narrative [facility] - 04/28/2023 1:22 PM TYRE FITTER Current interpretive data was last updated January 26, 2021. For adults ages 40-79, the ACC/AHA recommends discussing your 10-year atherosclerotic cardiovascular disease risk with your health care provider. https://www.acc.org/ASCVDApp us Gladys Box MD LAB BLOOD ORDERABLES Final Re sult [facility] * (ABNORMAL) Comprehensive metabolic panel (04/28/2023 10:22 AM TYRE FITTER) Total Protein 7.2 6.1 - 8.4 g/dL [...] - [facility] Blood 04/28/2023 10:2 2 AM TYRE FITTER 04/28/2023 11:23 AM TYRE FITTER us Gladys Box MD LAB BLOOD ORDERABLES [facility] from Last 3 Months or Most Recently Relevant to Health Maintenance Insurance MEDICARE [facility] MEDICARE [facility] MEDICARE [facility] Advance Directives For more information, please contact: [phone] * Full Code (Latest Code Status on File) Date Activated Date Inactivated Comments 04/15/2022 4:03 PM 04/18/2022 9:50 PM * Full Code Date Activated Date Inactivated Comments 03/29/2022 4:51 PM 03/30/2022 7:50 PM Care Teams Potline Monitor Relationship Specialty Start Date End Date Stuart Howe DO [address] [place] [address] PCP - General Family Medicine 05/10/21 July Maradiaga MD [address] [place] [address] Consulting Physician Cardiology 03/22/22 Bandar pU, MACKENZIE [address] [facility] [place] [address] [address] Physical Therapist Physical Therapy 06/11/22 Esther Garcia PT [address] [facility] [place] [address] [facility] [place], [place] [id number] Physical Therapist Physical Therapy 08/13/22
--- OUTSIDE RECORDS SUMMARY | 2024-06-30 10:18 | XMS_ITS | Encounter Summary ---
Author Organization [facility] Address [address] [place] [address] Care Team Providers Care Bi Analyst Name Role Phone Cipriano Del Cid MARY ANN-INFORMATION DIRECTOR Primary Care Provider [phone] Reason for Referral * Radiology Services (Routine) - Closed Specialty Diagnoses / Procedures Referred By Contac t Referred To Contact CT Scan Diagnoses Closed odontoid fracture with delayed healing, subsequent encounter Procedures CT Cervical Spine Wo Contrast Demetrius Morgan MD [address] [place] [address] Phone: tel: fax: Referral ID Status Reason Start Date Expiration Date Visits Re quested Visits Authorized [id number] Closed 05/31/2024 05/31/2025 1 1 Reason for Visit * Radiology Services (Routine) - Closed Specialty Diagnoses / Procedures Referred By Contac t Referred To Contact CT Scan Diagnoses Closed odontoid fracture with delayed healing, subsequent encounter Procedures CT Cervical Spine Wo Contrast Demetrius Morgan MD [address] [place] [address] Phone: tel:[phone] fax: Referral ID Status Reason Start Date Expiration Date Visits Re quested Visits Authorized [id number] Closed 05/31/2024 05/31/2025 1 1 Encounter Details Date Type Department Care Team (Latest Contact Info) Description 06/28/2024 1:42 PM CDT - 06/28/2024 11:59 PM CDT Hospital Encounter [facility] CAT SCAN [address] [place] [id number] Demetrius Morgan MD [address] [facility] [address] [place] [address] Discharge Disposition: Home or Self Care Social History Tobacco Use Types Packs/Day Years Used Date Smoking Tobacco: Former Cigarettes 1 9 Smokeless Tobacco: Never Comments:Quit smoking at the age of 25 [...] and heating? Not hard at all 11/07/2023 [facility] of Occupat ional Health - Occupational Stress [...] place to sleep or slept in a long-term (including now)? 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 Answer Date of Assessment Author No 11/07/2023 12:45 PM Galilea Sabillon RN * Is person blind or have serious difficulty seeing? Answer Date of Assessment Author No 11/07/2023 12:45 PM Galilea Sabillon RN * Does person have serious difficulty walking/climbing stairs? Answer Date of Assessment Author No 11/07/2023 12:45 PM Galilea Sabillon RN * Does person have difficulty dressing/bathing? Answer Date of Assessment Author No 11/07/2023 12:45 PM Galilea Sabillon RN * Does person have difficulty doing errands alone? Answer Date of Assessment Author No 11/07/2023 12:45 PM Galilea Sabillon RN documented as of this encounter Mental Status * Does person have difficulty concentrating/remembering/making decisions? Answer Entry Date Author No 11/07/2023 12:45 PM Galilea Sabillon RN documented in this encounter Medications at Time of Discharge acetaminophen (Tylenol) 160 MG/5ML solution 31.25 mL by Enteral Tube route 3 times daily 12/16/2023 albuterol-iprat ropium (Duo-Neb) 0.5-2.5 (3) MG/3ML nebulizer solution Inhale 3 mL by mouth every 6 hours as needed for Shortness of Breath or Wheezing 12/16/2023 aspirin (Aspirin) 81 MG chew tablet 1 (one) tablet by Enteral Tube route once daily 12/17/2023 atorvastatin (Lipitor) 40 MG tablet 1 (one) tablet by Enteral Tube route at bedtime 12/16/2023 clobetasol (Temovate) 0.05 % cream APPLY TOPICALLY TWICE A DAY NEEDED FOR ITCHING FOR 2 WEEK 06/08/2024 doxazosin (Cardura) 1 MG tablet Take 1 (one) tablet by mouth at bedtime 04/09/2024 folic acid (Folvite) 1 MG tablet 1 (one) tablet by Enteral Tube route once daily 12/17/2023 insulin aspart (NovoLOG) pen Inject 0 (zero) Units to 12 (twelve) Units subcutaneously every 6 hours 12/16/2023 insulin glargine (Lantus/Semglee ) 100 units/mL pen Inject 38 (thirty eight) Units subcutaneously every morning 12/17/2023 lansoprazole (Prevacid) 30 MG capsule 1 (one) capsule by Per G Tube route daily before breakfast 12/16/2023 metoprolol tartrate IR (Lopressor) 25 MG tablet Take 1 (one) tablet by mouth 2 times daily nystatin (Mycostatin) 079228 UNIT/ML suspension ADMINISTER 2ML TO EACH CHEEK POUCH EVERY 6 HOURS FOR 10 DAY 06/08/2024 phenol 1.4 % 2 sprays by Mouth/Throat route every 1 hour as needed 12/16/2023 polyethylene glycol 3350 (Miralax) 17 g packet 17 (seventeen) g by Enteral Tube route 2 times daily 12/16/2023 rOPINIRole (Requip) 1 MG tablet Take 1 (one) tablet by mouth once daily saline nasal spray ([place]oughton; Baby Pinon) 0.65 % nasal spray Cougar 2 (two) sprays into each nostril every 4 hours 12/16/2023 traZODone (Desyrel) 50 MG tablet Take 1 (one) tablet by mouth at bedtime tuberculin PPD (Tubersol) 5 UNIT/0.1ML injection Tuberculin PPD Solution 5 UNIT/0.1ML active 844642 RXNORM 0.1 ml Intradermal every evening shift Routine Inject 0.1 ml intradermally every evening shift every 365 day(s) for Annual TB Monitoring Document administration in immunization tab 12/26/2024 - 12/26/2024 documented as of this encounter Plan of Treatment Upcoming Encounters Date Type Department Care Team (Late st Contact Info) Description 09/29/2024 10:00 AM CDT Office Visit [facility] ENT [address] [place] [phone] Honey Manrique SLP [address] [place] [address] [address] [place] [phone] 09/29/2024 11:00 AM CDT Office Visit [facility]NT [address] [place] [phone] Vinicius Avalos MD [address] [place] [address] [address] [place] [address] documented as of this encounter Procedures Procedure Name Priority Date/Time Associated Diagnosis Comments CT CERVICAL SPINE WO CONTRAST Routine 06/28/2024 2:18 PM CDT Closed odontoid fracture with delayed healing, subsequent encounter documented in this encounter Results * CT Cervical Spine Wo Contrast [...] Report dictated by Jose David Braga MD, (Mechanical Design Drafter). INito MD have personally reviewed and interpreted this examination/study. > Interpreting Provider: Nito Prabhakar MD on 06/28/2024 4:17 PM Narrative 06/28/2024 4:17 PM CDT PROCEDURE: CT CERVICAL SPINE WO CONTRAST, DATE/TIME OF EXAM: 06/28/2024 2:19 PM, LOCATION [facility] INDICATION: S12.100G: Closed odontoid fracture with delayed [...] DATE/TIME OF EXAM: 06/28/2024 2:19 PM, LOCATION [facility] INDICATION: S12.100G: Closed odontoid fracture with delayed [...] Report dictated by Jose David Braga MD, (Mechanical Design Drafter). I, Nito Prabhakar MD have personally reviewed and interpreted this examination/study. 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
--- OUTSIDE RECORDS SUMMARY | 2024-06-30 10:18 | XMS_ITS | Encounter Summary ---
Author Organization [facility] Address 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
--- OUTSIDE RECORDS SUMMARY | 2024-06-30 10:18 | XMS_ITS | Encounter Summary ---
Author Organization [facility] Address [address] [place] [address] Care Team Providers Care Kennel Attendant Name Role Phone Ehsan Campos MD Primary Care Provider [phone] Encounter Details Date Type Department Care Team (Late st Contact Info) Description 06/27/2006 Outpatient Historical [facility] Support Serv. (Adt Cardiology-[facility]) [address] [place] [address] Ramon Sykes MD Social History Tobacco Use Types Packs/Day Years Used Date Smoking Tobacco: Never Assessed Sex and Gender Information Value Date Recorded Sex Assigned at Not on file Legal Sex Male 2:57 AM ATTACHE Gender Identity Not on file Sexual Orientation Not on file documented as of this encounter Plan of Treatment Not on file documented as of this encounter Visit Diagnoses Not on filedocumented in this encounter Care Teams Kennel Attendant Relationship Specialty Start Date End Date Ehsan Campos MD [address] [place] [address] PCP - General 01/14/03 documented as of this encounter
--- OUTSIDE RECORDS SUMMARY | 2024-06-30 10:18 | XMS_ITS | Encounter Summary ---
Author Organization [facility] Address [address] [place] [address] Care Team Providers Care Remediation Bioanalytics Consultant Name Role Phone Ehsan Campos MD Primary Care Provider [phone] Encounter Details Date Type Department Care Team (Latest Contact Info) Description 06/22/1999 Outpatient Historical HIS [facility] GINA Barba, Wilmer Wang MD [address] [place] [phone] Abdominal pain, epigastric (Primary Dx) Social History Tobacco Use Types Packs/Day Years Used Date Smoking Tobacco: Never Assessed Sex and Gender Information Value Date Recorded Sex Assigned at Not on file 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
--- OUTSIDE RECORDS SUMMARY | 2024-06-30 10:18 | XMS_ITS | Encounter Summary ---
Author Organization [facility] Address 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
--- OUTSIDE RECORDS SUMMARY | 2024-06-30 10:18 | XMS_ITS | Encounter Summary ---
Author Organization [facility] Address [address] [place] [address] Phone Care Team Providers Care Ice Skating Teacher Name Role Phone Stuart Howe DO Primary Care Provider July Maradiaga MD Unavailable [phone] Bandar pU DPT Unavailable [phone] Esther Garcia PT Unavailable [phone] Encounter Details Date Type Department Care Team (Late st Contact Info) Description 07/16/2022 Documentation [facility] [address] [facility] Advanced Medicine 14th [place] [address] [place] [address] Esther Garcia, PT [address] [facility] [address] [place] [address] Social History Tobacco Use Types [...] on file Legal Sex Male 6:01 PM ACCOUNTS 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 Gender Identity Male 05/07/2021 12:04 AM CDT Sexual Orientation Straight 06/25/2022 9: 20 AM CDT documented as of this encounter Plan of Treatment Not on file documented as of this encounter Visit Diagnoses Not on filedocumented in this encounter Care Teams Ice Skating Teacher Relationship Specialty Start Date End Date Stuart Howe DO [address] [place] [address] PCP - General Family Medicine 05/10/21 July Maradiaga MD [address] [place] [address] Consulting Physician Cardiology 03/22/22 Bandar Up DPT [address] [facility] [place] [address] [place] [id number] Physical Therapist Physical Therapy 06/11/22 Esther Garcia PT [address] [facility] [address] [facility] [place], [place] [id number] Physical Therapist Physical Therapy 08/13/22 documented as of this encounter
--- OUTSIDE RECORDS SUMMARY | 2024-06-30 10:19 | XMS_ITS | CONTINUITY OF CARE DOCUMENT ---
Author Name robyn carlson Address Unknown Organization [facility] Address [address] [place] [address] Phone [phone] Care Team Providers Care Lidar Scientist Name Role Phone Hiren YAP, July Unavailable [phone] BUSCHLING DO, SINAN Unavailable BUSCHLING DO, [...] Maradiaga MD Immune deficiency active Isis Valverde OIL EXPELLER OPERATOR Cardiology examination active July swenson MD ENCOUNTERS Date Type Provider Location Encounter Diag nosis - In-person encounter Office Visit July Maradiaga MD [facility] - In-person encounter Office Visit July Maradiaga MD [facility] Cardiology examination - In-person encounter Office Visit July Maradiaga MD [facility] - In-person encounter Office Visit July Maradiaga MD [facility] Preoperative cardiovascular evaluation - In-person encounter Office Visit July Maradiaga MD [facility] Immune deficiency - In-person encounter Office Visit July Maradiaga MD [facility] - In-person encounter Office Visit July Maradiaga MD [facility] - In-person encounter Office Visit July Maradiaga MD [facility] CAD - s/p NATE RCA, Ramus 03/2013, s/p BMS OM1 05/14 - In-person encounter Office Visit July Maradiaga MD [facility] Cardiology examination - In-person encounter Office Visit July Maradiaga MD [facility] CAD - s/p NATE RCA, Ramus [...] blood pressure, systolic 126 mm[Hg] Tab itha [place] oxygen saturation, oximetry 96 % Liza [place] respiratory rate E&M 12 /min Liza Horvath [...] [lb_av] Mina y height E&M 69 [in_i] [facility] Body Mass Index (Ratio) 25.40 kg/m2 [...] lder height E&M 69 [in_i] Geni Lauren [facility] Body Mass Index (Ratio) 27.26 kg/m2 [...] 100 unit/mL insulin pen active Isis Bernicemiglia OIL EXPELLER OPERATOR fluticasone propionate 50 mcg/actuation spray,suspensio n active as needed [facility] Advair HFA 45-21 mcg/actuation HFA aerosol inhaler completed - July Maradiaga MD nortriptyline 10 mg capsule completed - [facility] folic acid 1 mg tablet active Take 1 tablet by mouth once a day [facility] albuterol sulfate 90 mcg/actuation HFA aerosol inhaler active INHALED 1 PUFF EVERY 4 HOURS NEEDED FOR SHORTNESS OF BREATH OR WHEEZING Isis Queenmicarlos [facility] dexamethasone 6 mg tablet completed TAKE 1 TABLET ORALLY DAILY - [facility] clopidogrel 75 mg tablet completed TAKE 1 TABLET BY MOUTH EVERY DAY - Isis Queenmiglnegrita [facility] pantoprazole 40 mg tablet,delayed release (DR/EC) active TAKE 1 TABLET BY MOUTH EVERY DAY [facility] aspirin 81 mg tablet,chewable active Take [...] mouth three times a day Isis Ventimiglia OIL EXPELLER OPERATOR #90, 90 days supply, Prescribed by YANIRA [...] MD drug use no Isis Ventimig jaime OIL EXPELLER OPERATOR alcohol use no Isis Ventimig jaime OIL EXPELLER OPERATOR smoking status Never smoker Isis castro OIL EXPELLER OPERATOR social history reviewed E&M revi ewed - [...] July Maradiaga MD smoking status Never smoker Geni [...] Management Plan continue current therapy Isis Valverde OIL EXPELLER OPERATOR HRA, CV Assess/Plan, Angina (inactive) Management Plan [...] Payer name Policy type / Coverage type [facility] alliance party ID [employer] [place] W[employer] [id number] [place] Medicare [id number] ADVANCE DIRECTIVES Name Date DISCUSSED - NO DECISION MADE TREATMENT PLAN Date Name Performer [id number],C, H is updated medication list for this problem includes: Pantoprazole 40 Mg Tablet,delayed Release (dr/ec) (Pantoprazole) ..... Take 1 tablet by mouth every day July Maradiaga MD [id number],C,w c per pt His updated medication list for this problem includes: Humalog Kwikpen Insulin 100 Unit/ml Insulin Pen (Insulin lispro) Lisinopril 5 Mg Tablet (Lisinopril) ..... Take 1 tablet by mouth once a day Aspirin 81 Mg Tablet,chewable (Aspirin) ..... Take 1 tablet once a day July Maradiaga MD [id number],C, H is updated medication list for this problem includes: Atorvastatin 20 Mg Tablet (Atorvastatin) ..... Take 1 tablet by mouth once a day July Maradiaga MD [id number],C,S till experiencing back pain and has pain with walking July Maradiaga MD [id number],C,L ast stent 04/2020. He has been chest [...] tablet once a day July Maradiaga MD [id number],C,H e checks BP everyday, runs around 111/66. [...] mouth once a day July Maradiaga MD [id number],C, H is updated medication list for this problem includes: Atorvastatin 20 Mg Tablet (Atorvastatin) ..... Take 1 tablet by mouth once a day Isis Valverde [facility] [id number],C,n ow on insulin in setting of high [...] 1 tablet once a day Isis Valverde [facility] [id number],C,c ontrolled H is updated medication list for [...] by mouth once a day Isis Valverde [facility] [id number],C,L ast stent 04/2020. 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 He is following at [place]. He is now recieving weekly high dose steroids at the hospital. We will plan to monitor. Given this will do f/u echo prior to next visit to monitor. O rders: 9 9214 MOD 30-39min (CPT-62812) C omplete Echo (CPT-38786) Isismarissa Valverde [facility] [id number],C, C ontinues on Metformin, Pioglitazone and Glimepiride. Reduced intake of carbohydrates and sugars advised. A1c was 6.6 per pt. July Maradiaga MD [id number],S, C ontinues on Atorvastatin. We aim for an LDL <70. July Maradiaga MD [id number],S, H is muscles continue to be weak. He continues to have discomfort and limited mobility. July Maradiaga MD [id number],S, B lood pressure control is satisfactory. July Maradiaga MD [id number],S, H e denies chest pain and SOB. Continues on aspirin and Plavix. July Maradiaga MD [id number],C,H e denies chest pain and SOB. Continues on aspirin and Plavix. July Maradiaga MD [id number],C,S /P successful back surgery. Is lifting weights to restrengthen his weakened muscles. July Maradiaga MD [id number],S, C ontinues on Omeprazole. July Maradiaga MD [id number],S, C ontinues on Metformin, Pioglitazone and Glimepiride. Reduced intake of carbohydrates and sugars advised. July Maradiaga MD [id number],S, C ontinues on Atorvastatin. We aim for an LDL <70. July Maradiaga MD [id number],S, B lood pressure control is satisfactory. July Maradiaga MD Cardiology: H is updated medication list for this problem includes: Pantoprazole 40 Mg Tablet,delayed Release (dr/ec) (Pantoprazole) ..... Take 1 tablet by mouth every day July Maradiaga MD Cardiology:Managed b y PCP W ell controlled per patient His updated medication list [...] July Maradiaga MD Cardiology:Following with neurologist at [facility] and [facility] July Maradiaga MD Cardiology:Stable, n o angina, [...] by mouth once a day Isismarissa Valverde [facility] Cardiology:now on in [facility] in setting of high dose steroids [...] 1 tablet once a day Isis Valverde [facility] Cardiology:controlle d H is updated medication list [...] tablet by mouth once a day Isismarissa Queengénesis [facility] Cardiology:Last sten t 04/2020. He has been [...] ..... 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 He is following at [place]. He is now recieving weekly high dose steroids at the hospital. We will plan to monitor. Given this will do f/u echo prior to next visit to monitor. O rders: 9 9214 MOD 30-39min (CPT-52360) C omplete Echo (CPT-69193) Isismarissa Valverde [facility] Cardiology: C ontinues on Metformin, Pioglitazone and [...] pressure control is satisfactory. July Maradiaga MD [facility] Follow up :Effort tolerance limited. [facility] Follow up :Continues on Metformin, Pioglitazone and Glimepiride. Reduced intake of carbohydrates and sugars advised. [facility] Follow up :Continues on Atorvastatin. We aim for an LDL <70. [facility] Follow up :Blood pressure control is satisfactory. [facility] Follow up :He is planned for lumbar spine surgery on June 13, 2020. He needs to have at least 30 days on DAPT with Aspirin and Plavix which would be June 10, 2020. If he needs to hold the Plavix for more than 3 days prior to the procedure, it will need to be delayed. [facility] Follow up :s/p recent intervention with [...] ic with pain. Planned for surgery. [facility] Cardiology:History o f CAD and [...]
== END 2024-06-30 09:43 | disposition home or self-care (01) ==
LOC: CHSIMG 09:45
PROVIDERS: PCP Nurse Practitioner Family; Visit Provider Nurse Practitioner Family
DX: R09.89 Other specified symptoms and signs involving the circulatory and respiratory systems (principal)
CPT/HCPCS: 71046

== ENCOUNTER 2024-07-03 08:19 | Outpatient (CLI) | payer MEDICARE, OTHER, SELFPAY ==
--- NOTE | ~2024-07-03 | MR_ITS ---
MRI of the brain Clinical History: Memory loss Technique: Axial and sagittal T1-weighted images were acquired. These were followed by axial T2-weigh estela, diffusion weighted, gradient, and FLAIR images. COMPARISON: 03/07/2015 Findings: No acute infarct, internal hemorrhage or mass lesion seen. No significant signal abnormalit y seen in the brain parenchyma. Ventricles and subarachnoid spaces are mildly dilated. Orbits are unremarkable. Paranasal sinuses and mastoid air cells are clear. Major intracranial flow voids are intact. Sagittal midline structures are intact. IMPRESSION: No significant abnormality seen. Reviewed, dictated and finalized at location .
--- OUTSIDE RECORDS SUMMARY | 2024-07-03 08:22 | XMS_ITS | Encounter Summary ---
Author Organization [facility] Address [address] [place] [address] Care Team Providers Care Java Enterprise Architect Name Role Phone Ehsan Campos MD Primary Care Provider [phone] Encounter Details Date Type Department Care Team (Late st Contact Info) Description 06/29/1999 Outpatient Historical [facility] Wilmer Barba MD [address] [place] [id number] Dyspepsia and other specified disorders of function of stomach (Primary Dx) Social History Tobacco Use Types Packs/Day Years Used Date Smoking Tobacco: Never Assessed Sex and Gender Information Value Date Recorded Sex Assigned at Not on file Legal Sex Male 2:57 AM EDGER LINER Gender Identity Not on file Sexual Orientation Not on file documented as of this encounter Plan of Treatment Not on file documented as of this encounter Visit Diagnoses Diagnosis Dyspepsia and other specified disorders of function of stomach- Primary documented in this encounter Care Teams Java Enterprise Architect Relationship Specialty Start Date End Date Ehsan Campos MD [address] [place] [address] PCP - General 01/14/03 documented as of this encounter
--- OUTSIDE RECORDS SUMMARY | 2024-07-03 08:22 | XMS_ITS | CONTINUITY OF CARE DOCUMENT ---
Author Name robyn carlson Address Unknown Organization [facility] Address [address] [place] [address] Phone [phone] Care Team Providers Care Organ Pipe Maker Metal Name Role Phone Hiren YAP, July Unavailable [...] Maradiaga MD Immune deficiency active Isis Valverde REVENUE SPECIALIST Cardiology examination active July swenson MD ENCOUNTERS Date Type Provider Location Encounter Diag nosis - In-person encounter Office Visit July Maradiaga MD [facility] - In-person encounter Office Visit July Maradiaga MD [facility] Cardiology examination - In-person encounter Office Visit July Maradiaga MD [facility] - In-person encounter Office Visit July Maradiaga MD [facility] Preoperative cardiovascular evaluation - In-person encounter Office Visit July Maradiaga MD [facility] Immune deficiency - In-person encounter Office Visit July Maradiaga MD [facility] - In-person encounter Office Visit July Maradiaga MD [facility] - In-person encounter Office Visit July Maradiaga MD [facility] CAD - s/p NATE RCA, Ramus 03/2013, s/p BMS OM1 05/14 - In-person encounter Office Visit July Maradiaga MD [facility] Cardiology examination - In-person encounter Office Visit July Maradiaga MD [facility] CAD - s/p NATE RCA, Ramus [...] blood pressure, systolic 126 mm[Hg] Tab itha [place] oxygen saturation, oximetry 96 % Liza [place] respiratory rate E&M 12 /min Liza Horvath [...] [lb_av] Mina y height E&M 69 [in_i] [facility] Body [facility] (Ratio) 25.40 [...] lder height E&M 69 [in_i] Geni Lauren [facility] Body Mass Index (Ratio) 27.26 [...] 100 unit/mL insulin pen active Isis Bernicemiglia REVENUE SPECIALIST fluticasone propionate 50 mcg/actuation spray,suspensio n active as needed [facility] Advair HFA 45-21 mcg/actuation HFA aerosol inhaler completed - July Maradiaga MD nortriptyline 10 mg capsule completed - [facility] folic acid 1 mg tablet active Take 1 tablet by mouth once a day [facility] albuterol sulfate 90 mcg/actuation HFA aerosol inhaler active INHALED 1 PUFF EVERY 4 HOURS NEEDED FOR SHORTNESS OF BREATH OR WHEEZING Isis Queenmicarlos WHEELERP dexamethasone 6 mg tablet completed TAKE 1 TABLET ORALLY DAILY - [facility] clopidogrel 75 mg tablet completed TAKE 1 TABLET BY MOUTH EVERY DAY - Isis Queenmiglnegrita [employer]ELERP pantoprazole 40 mg tablet,delayed release (DR/EC) active TAKE 1 TABLET BY MOUTH EVERY DAY [facility] aspirin 81 mg tablet,chewable active Take 1 [...] mouth three times a day Isis Ventimiglia REVENUE SPECIALIST #90, 90 days supply, Prescribed by YANIRA [...] MD drug use no Isis Ventimig jaime REVENUE SPECIALIST alcohol use no Isis Ventimig jaime REVENUE SPECIALIST smoking status Never smoker Isis castro REVENUE SPECIALIST social history reviewed E&M revi ewed - no changes required July Maradiaga MD social history E&M S moking History: P juan has never smoked. July Maradiaga MD smoking status Never smoker Alix Jacksonminda irvas social history E&M S moking History: P [...] Management Plan continue current therapy Isis Valverde REVENUE SPECIALIST HRA, CV Assess/Plan, Angina (inactive) Management Plan [...] Payer name Policy type / Coverage type [facility] constitution party ID [employer] [place] [employer] [id number] [place] Medicare [id number] ADVANCE DIRECTIVES Name Date DISCUSSED - NO DECISION MADE TREATMENT PLAN Date Name Performer [id number],C, H is updated medication list for this problem includes: Pantoprazole 40 Mg Tablet,delayed Release (dr/ec) (Pantoprazole) ..... Take 1 tablet by mouth every day July Maradiaga MD [id number],C,w c per pt His updated medication list for this problem includes: Humalog Kwikpen Insulin 100 Unit/ml Insulin Pen (Insulin lispro) Lisinopril 5 Mg Tablet (Lisinopril) ..... Take 1 tablet by mouth once a day Aspirin 81 Mg Tablet,chewable (Aspirin) ..... Take 1 tablet once a day July Maradiaga MD [id number],C, H is updated medication list for this problem includes: Atorvastatin 20 Mg Tablet (Atorvastatin) ..... Take 1 tablet by mouth once a day July Maradiaga MD [id number],C,S till experiencing back pain and has pain with walking Jluy Maradiaga MD [id number],C,L ast stent 04/2020. He has been chest [...] tablet once a day July Maradiaga MD [id number],C,H e checks BP everyday, runs around 111/66. [...] mouth once a day July Maradiaga MD [id number],C, H is updated medication list for this problem includes: Atorvastatin 20 Mg Tablet (Atorvastatin) ..... Take 1 tablet by mouth once a day Isis Valverde [facility] [id number],C,n ow on insulin in setting of high [...] 1 tablet once a day Isis Valverde [facility] [id number],C,c ontrolled H is updated medication list for [...] by mouth once a day Isis Valverde [facility] [id number],C,L ast stent 04/2020. 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 He is following at [place]. He is now recieving weekly high dose steroids at the hospital. We will plan to monitor. Given this will do f/u echo prior to next visit to monitor. O rders: 9 9214 MOD 30-39min (CPT-19353) C omplete Echo (CPT-34810) Isis Valverde [facility] [id number],C, C ontinues on Metformin, Pioglitazone and Glimepiride. Reduced intake of carbohydrates and sugars advised. A1c was 6.6 per pt. July Maradiaga MD [id number],S, C ontinues on Atorvastatin. We aim for an LDL <70. July Maradiaga MD [id number],S, H is muscles continue to be weak. He continues to have discomfort and limited mobility. July Maradiaga MD [id number],S, B lood pressure control is satisfactory. July Maradiaga MD [id number],S, H e denies chest pain and SOB. Continues on aspirin and Plavix. July Maradiaga MD [id number],C,H e denies chest pain and SOB. Continues on aspirin and Plavix. July Maradiaga MD [id number],C,S /P successful back surgery. Is lifting weights to restrengthen his weakened muscles. July Maradiaga MD [id number],S, C ontinues on Omeprazole. July Maradiaga MD [id number],S, C ontinues on Metformin, Pioglitazone and Glimepiride. Reduced intake of carbohydrates and sugars advised. July Maradiaga MD [id number],S, C ontinues on Atorvastatin. We aim for an LDL <70. July Maradiaga MD [id number],S, B lood pressure control is satisfactory. July [...] July Maradiaga MD Cardiology:Following with neurologist at [facility] and [facility] July Maradiaga MD Cardiology:Stable, n [...] by mouth once a day Isismarissa Valverde [facility] Cardiology:now on in [facility] in setting of high dose steroids [...] 1 tablet once a day Isis Valverde [facility] Cardiology:controlle d H is updated medication [...] by mouth once a day Isismarissa Langfordcarlos [facility] Cardiology:Last sten t 04/2020. He has [...] ..... 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 He is following at [place]. He is now recieving weekly high dose steroids at the hospital. We will plan to monitor. Given this will do f/u echo prior to next visit to monitor. O rders: 9 9214 MOD 30-39min (CPT-11658) C omplete Echo (CPT-89904) Isismarissa Valverde [facility] Cardiology: C ontinues on Metformin, Pioglitazone [...] pressure control is satisfactory. July Maradiaga MD [facility] Follow up :Effort tolerance limited. [facility] Follow up :Continues on Metformin, Pioglitazone and Glimepiride. Reduced intake of carbohydrates and sugars advised. [facility] Follow up :Continues on Atorvastatin. We aim for an LDL <70. [facility] Follow up :Blood pressure control is satisfactory. [facility] Follow up :He is planned for lumbar spine surgery on June 13, 2020. He needs to have at least 30 days on DAPT with Aspirin and Plavix which would be June 10, 2020. If he needs to hold the Plavix for more than 3 days prior to the procedure, it will need to be delayed. [facility] Follow up :s/p recent [...]
--- OUTSIDE RECORDS SUMMARY | 2024-07-03 08:22 | XMS_ITS | Clinical Summary ---
Author Organization [facility] Address [address] [address] Phone Care Team Providers Care Intermodal Truck Driver Name Role Phone Ehsan Campos MD Primary Care Provider [phone] Madhav Hodges DO Unavailable [phone] Allergies No known active allergies Medications [...] complete this topic Insurance MEDICARE Care Teams Intermodal Truck Driver Relationship Specialty Start Date End Date Ehsan Campos MD [address] [place] [address] PCP - General Family Medicine 10/06/15 Madhav Hodges DO [address] [place] [address] Gastroenterology 10/24/15
--- OUTSIDE RECORDS SUMMARY | 2024-07-03 08:22 | XMS_ITS | Encounter Summary ---
Author Organization [facility] Address [address] [place] [address] Phone Care Team Providers Care Senior Radiation Protection Technician Name Role Phone Stuart Howe DO Primary Care Provider July Maradiaga MD Unavailable [phone] Bandar Up DPT Unavailable [phone] Esther Garcia PT Unavailable [phone] Encounter Details Date Type Department Care Team (Late st Contact Info) Description 02/01/2022 Telephone [facility] Scheduling [address] [place] [address] Galilea Esteban CMA Social History Tobacco Use Types Packs/Day Years Used Date Smoking Tobacco: Former Cigarettes Q uit: 02/25/1964 Alcohol Use Standard Drinks/Week Comments No 0 (1 standard drink = 0.6 oz pur e alcohol) Sex and Gender Information Value Date Recorded Sex Assigned at Not on file Legal Sex Male 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 Gender Identity Male 05/07/2021 12:04 AM CDT Sexual Orientation Straight 06/25/2022 9: 20 AM CDT documented as of this encounter Plan of Treatment Not on file documented as of this encounter Visit Diagnoses Not on filedocumented in this encounter Care Teams Senior Radiation Protection Technician Relationship Specialty Start Date End Date Stuart Howe DO [address] [place] [address] PCP - General Family Medicine 05/10/21 July Maradiaga MD [address] [place] [address] Consulting Physician Cardiology 03/22/22 Bandar Up, RADHAT [address] [facility] [place] [address] [address] Physical Therapist Physical Therapy 06/11/22 Esther Garcia, PT [address] [facility] [address] [address] Physical Therapist Physical Therapy 08/13/22 documented as of this encounter
--- OUTSIDE RECORDS SUMMARY | 2024-07-03 08:22 | XMS_ITS | Encounter Summary ---
Author Organization [facility] Address [address] [place] [address] Care Team Providers Care Wooden Boat Builder Name Role Phone Ehsan Campos MD Primary Care Provider [phone] Encounter Details Date Type Department Care Team (Late st Contact Info) Description 06/27/2006 Outpatient Historical [facility] Support Serv. ([facility]) [address] [place] [address] Ramon Sykes MD Social History Tobacco Use Types Packs/Day Years Used Date Smoking Tobacco: Never Assessed Sex and Gender Information Value Date Recorded Sex Assigned at Not on file Legal Sex Male 2:57 AM FORGER HELPER Gender Identity Not on file Sexual Orientation Not on file documented as of this encounter Plan of Treatment Not on file documented as of this encounter Visit Diagnoses Not on filedocumented in this encounter Care Teams Wooden Boat Builder Relationship Specialty Start Date End Date Ehsan Campos MD [address] [place] [address] PCP - General 01/14/03 documented as of this encounter
--- OUTSIDE RECORDS SUMMARY | 2024-07-03 08:22 | XMS_ITS | Encounter Summary ---
Author Organization [employer] Address [address] [place] [address] Care Team Providers Care Turbo Electric Operator Name Role Phone Ehsan Campos MD Primary Care Provider [phone] Encounter Details Date Type Department Care Team (Latest Contact Info) Description 01/14/2003 Outpatient Historical HIS CARD RECORDS SUPERVISOR Backer, Wellington Husain MD NO ADDRESS ON FILE ACQ SPONDYLOLISTHESIS (Primary Dx) Social History Tobacco Use Types Packs/Day Years Used Date Smoking Tobacco: Never Assessed Sex and Gender Information Value Date Recorded Sex Assigned at Not on file Legal Sex Male 2:57 AM CHIEF CONTRACT OFFICER Gender Identity Not on file Sexual Orientation Not on file documented as of this encounter Plan of Treatment Not on file documented as of this encounter Visit Diagnoses Diagnosis Acquired spondylolisthesis- Primary documented in this encounter Care Teams Turbo Electric Operator Relationship Specialty Start Date End Date Ehsan Campos MD [address] [place] [address] PCP - General 01/14/03 documented as of this encounter
--- OUTSIDE RECORDS SUMMARY | 2024-07-03 08:22 | XMS_ITS | Encounter Summary ---
Author Organization [employer] Address 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 Gender Identity Not on file Sexual [...] INTERFACE SYSTEM 06/10/2006 1:47 PM CDT Result [facility] Wellington Mendoza MD HEMATOLOGY ORDERABLES Edited Performing Organization Address [facility] Phone Number INTERFACE SYSTEM Refer to clinic/hospital department * TOTAL PROTEIN, CSF (06/10/2006 1:47 PM CDT) PROTEIN, CSF 43 15 - 45 mg/dL INTERFACE SYSTEM 06/10/2006 1:47 PM CDT Wellington Mendoza MD BODY FLUIDS AND STOOLS Edited Performing Organization Address [facility] Phone Number INTERFACE SYSTEM Refer to clinic/hospital department * (ABNORMAL) GLUCOSE, CSF (06/10/2006 1:47 PM CDT) GLUCOSE, CSF 75(H) 40 - 70 mg/dL INTERFACE SYSTEM 06/10/2006 1:47 PM CDT Wellington Mendoza MD BODY FLUIDS AND STOOLS Edited Performing Organization Address [facility] INTERFACE SYSTEM Refer to clinic/hospital department [...] FLUIDS AND STOOLS Edited Performing Organization Address [facility] Phone Number INTERFACE SYSTEM Refer to [...] available on the [facility] Intranet at: [email or web address] Select: Lab Policies and Procedures Select: Reference Ranges - GFR 06/10/2006 10:3 5 AM CDT us Wellington Mendoza MD CHEMISTRY ORDERABLES Edited Performing Organization Address City/[facility] [address]/ZIP Co de Phone Number INTERFACE SYSTEM Refer to clinic/hospital department * HEMOGLOBIN AND HEMATOCRIT (06/10/2006 10:35 AM CDT) HEMOGLOBIN 14.5 13.6 - 16.5 g/dL INTERFACE SYSTEM HEMATOCRIT 42.3 40.0 - 48.0 % INTERFACE SYSTEM 06/10/2006 10:3 5 AM CDT us Wellington Mendoza MD HEMATOLOGY ORDERABLES Edited Performing Organization Address [facility]/State/ZIP Co de Phone Number INTERFACE SYSTEM Refer to clinic/hospital department documented in this encounter Visit Diagnoses Diagnosis Cervicalgia- Primary documented in this encounter Care Teams New Account Interviewer Relationship Specialty Start Date End Date Ehsan Campos MD [address] [place] [address] PCP - General 01/14/03 documented as of this encounter
--- OUTSIDE RECORDS SUMMARY | 2024-07-03 08:22 | XMS_ITS | Clinical Summary ---
[facility] Address [address] [place] [address] Care Team Providers Care Machine Tender Name Role Phone Stuart Howe DO Primary Care Provider July Maradiaga MD Unavailable [phone] Bandar Up DPT Unavailable [phone] Esther Garcia PT Unavailable [phone] Allergies No known active allergies Medications aspirin 81 mg enteric coated tablet Take 1 tablet (81 mg total) by mouth daily with breakfast Active albuterol HFA (PROVENTIL HFA,VENTOLIN HFA,PROAIR HFA) 90 mcg/actuation inhaler Inhale 2 puffs every 6 (six) hours as needed for wheezing or shortness of breath 2 Active folic acid (FOLVITE) 1 mg tablet Take 1 tablet (1,000 mcg total) by mouth every morning 2 Active acetaminophen (TYLENOL) 500 mg tablet Take 2 tablets (1,000 mg total) by mouth every 6 (six) hours 60 tablet 1 3 Active atorvastatin (LIPITOR) 20 mg tablet Take 2 tablets (40 mg total) by mouth nightly Active insulin lispro (HumaLOG, ADMELOG) 100 unit/mL pen for injection 12 - 15 units with meal 5 units for snacks plus 1 for every 40 > 150 - TDD 70 units 30 mL 11 3 Active insulin glargine 100 unit/mL (3 mL) pen for injectionIndica tions:Steroid-i nduced hyperglycemia,T ype 2 diabetes mellitus with hyperglycemia, with long-term current use of insulin (HCC) Inject 24 Units under the skin daily 15 mL 3 4 Active NovoLOG 100 unit/mL (3 mL) pen for injection INJECT 5 - 15 UNITS UNDER THE SKIN 4 TO 6X DAILY MEALTIME & CORRECTION BOLUS (MAX 90 UNITS/DAY) 15 mL 1 4 Active Additional Information Patient not taking.Reported on 07/01/2024 metoprolol tartrate (LOPRESSOR) 25 mg immediate release tablet Take 0.5 tablets (12.5 mg total) by mouth 2 (two) times a day Active ipratropium-alb uteroL (DUO-NEB) 0.5-2.5 mg/3 mL nebulizer solution Inhale 3 mL every 6 (six) hours as needed 4 Active lansoprazole (PREVACID) 30 mg capsule Administer per tube 1 capsule (30 mg total) daily before breakfast 4 Active rOPINIRole (REQUIP) 1 mg tablet Take 1 tablet (1 mg total) by mouth 3 (three) times a day Active traZODone (DESYREL) 50 mg tablet Take 1 tablet (50 mg total) by mouth nightly Active doxazosin (CARDURA) 1 mg tablet TAKE 1 TABLET BY MOUTH DAILY FOR 3 MONTHS 5 Active pen needle, diabetic 32 gauge x needleIndicatio ns:Type 2 diabetes mellitus with hyperglycemia, without long-term current use of insulin (HCC) Use as directed with basal, bolus, and correction insulin 5 to 6 times a day. 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 Overview (03/22/2022): Added automatically from request for surgery [id number] Essential (primary) hypertension 04/19/2020 Chronic back pain 04/19/2020 Hyperlipemia 05/11/2014 Sleep apnea 05/11/2014 Spinal stenosis 05/11/2014 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 Overview (04/18/2022): Coronary arteriosclerosis in [place] artery Type 2 diabetes mellitus wit h hyperglycemia, with long-term current use of insulin On methylprednisolone therapy IgA deficiency IgM deficiency Persistent 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 complication Encounters Date Type Department Care Team Description 07/01/2024 10:21 AM CDT - 07/01/2024 11:59 PM CDT Hospital Encounter [facility] [address], [address] [place] [address] Micheal Blanco MD PhD Intractable neuropathic pain of lower extremity - Bilateral (Primary Dx); 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 Discharge Disposition: Discharge to home or self care 06/30/2024 Telephone [facility] [address], [address] [place] [address] Micheal Blanco MD PhD [employer] Orders 06/24/2024 Telephone [facility] [address], [address] [place] [address] Micheal Blanco MD PhD 06/17/2024 12:57 PM CDT - 06/17/2024 11:59 PM CDT Hospital Encounter [facility] [address], [address] [place] [address] Micheal Blanco MD PhD Intractable neuropathic pain of lower extremity (Primary Dx); Mononeuropathy multiplex syndrome; Chronic low back pain, unspecified back pain laterality, unspecified whether sciatica present; Chronic painful diabetic neuropathy (HCC) Discharge Disposition: Discharge to home or self care 06/17/2024 Telephone [facility] [address], [address] [place] [address] Micheal Blanco MD PhD PREQUTENZA CALL 05/14/2024 Telephone [facility] [address], [address] [place] [address] Delia Washington RN PMC Intake Assessment 05/13/2024 1:30 PM CDT Office Visit [facility] Neuro Muscle [address]th [place] [address] [place] [address] Wellington Alva MD PhD Peripheral nerve injury (Primary Dx); Mononeuropathy multiplex syndrome; Spinal stenosis of lumbar region, unspecified whether neurogenic claudication present; Chronic low back pain, unspecified back pain laterality, unspecified whether sciatica present 05/10/[address] [facility] Endocrinology Metabolism and Lipid [address] [facility] 13th [place] [address] [place] [address] Jazzy Alvarado RMA Type 2 diabetes mellitus with hyperglycemia, without long-term current use of insulin (HCC) 05/03/2024 11:00 AM CDT Office Visit [facility] Endocrinology Metabolism and Lipid [address] [facility] 13th [place] [address] [place] [address] Gladys Box MD Type 2 diabetes mellitus [...] often do you have a drink containing alc ohol? 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 Gender Identity Male 05/07/2021 12:04 AM CDT Sexual Orientation Straight 06/25/2022 9: 20 AM CDT Obstetrics History Last Filed Vital Signs Vital Sign Reading Time Taken Comments Blood Pressure 173/85 07/01/2024 12:29 PM CDT Pulse 77 07/01/2024 12:29 PM CDT Temperature 36.2 C (97.2 F) 07/01/2024 10:28 AM CDT Respiratory Rate 18 07/01/2024 12:29 PM CDT Oxygen Saturation 100% 07/01/2024 12:29 PM CDT Inhaled Oxygen Concentration - - [...] 11/03/2023, Additional history exists Fall Risk Assessment 07/01/2025 07/01/2024, 06/17/2024, 04/18/2022 Abdominal Aortic Aneurysm (A AA) Screen Completed [...] likelihood of falling Lifestyle No Eloisa Murphy, ESCOBAR Note: Below are four things you can [...] stairs Contact your local community or senior [place] for information on exercise, fall prevention programs, or options for improving home safety. Medical Devices Implanted Type Area It Web Development Consultant Device Identifier Shelf Expiration Date Model / Serial / Lot Stent Implanted:Qty: 3 Stent N/A: Heart [employer] Advance 3-4mm 50mm Allograft Graft Nerve Sterile [id number] - [id number] - [id number] Implanted:Qty: 1 on 03/29/2022 by Jacquie Slo MD at [facility] Left: Leg [employer] 05/24/2024 [id number] / [id number] / [id number] [employer] Weck Horizon Ligate Triangulate Cross Section Wire Small Wide Latex Free [id number] - [id number] Implanted:Qty: 2 on 03/29/2022 by Jacquie Slo MD at [facility] Left: Leg [employer] 09/28/2026 [id number] / / Procedures Procedure Name Priority Date/Time Associated Diagnosis Comments POCT HEMOGLOBIN A1C Routine 05/03/2024 1 0:52 AM CDT Type 2 diabetes mellitus with hyperglycemia, without long-term current use of insulin (HCC) POCT GLUCOSE 50080 Routine 05/03/2024 10 :47 AM CDT Type 2 diabetes mellitus with hyperglycemia, without long-term current use of insulin (HCC) COMPREHENSIVE METABOLIC PANEL Routine 04/28/2023 10:22 AM COMBINE MECHANIC Type 2 diabetes mellitus with hyperglycemia, with long-term current use of insulin (HCC) LIPID PANEL Routine 04/28/2023 10:22 AM COMBINE MECHANIC Type 2 diabetes mellitus with hyperglycemia, with long-term current use of insulin (HCC) ALBUMIN CREATININE RATIO, URINE Routine 04/28/2023 10:22 AM COMBINE MECHANIC Type 2 diabetes mellitus with hyperglycemia, with [...] Albumin Creatinine Ratio, Urine (04/28/2023 10:22 AM COMBINE MECHANIC) Microalb, Ur 13.1 0.0 - 22.9 mg/L [facility] Random Urine Creatinine 254.3 mg/dL [facility] Microalb/Creat Ratio 5.2 0.0 - 29.9 mg/g [facility] Urine 04/28/2023 10:2 2 AM COMBINE MECHANIC 04/28/2023 11:23 AM COMBINE MECHANIC Gladys Box MD LAB URINE ORDERABLES Final Re sult [facility] * (ABNORMAL) Lipid panel (04/28/2023 10:22 AM COMBINE MECHANIC) Triglycerides 165(H) <150 mg/dL [facility] Comment: Desirable: <150 mg/dL, fasting <175 mg/dL, non-fasting Persistently elevated triglycerides may enhance atherosclerotic cardiovascular disease. Total Cholesterol 106 <200 mg/dL [facility] Comment:Repeated and Verifie d Total HDL-C Direct 32(L) >40 mg/dL [facility] Comment: A low HDL-C may be inidcative of metabolic syndrome and enhance atherosclerotic cardiovascular disease risk. Non-HDL cholesterol 74 <220 mg/dL [facility] [place] LDL Chol 41 <190 mg/dL [facility] Comment: The inaccuracy of the Friedewald equation [...] are elevated. Blood 04/28/2023 10:2 2 AM COMBINE MECHANIC 04/28/2023 11:23 AM COMBINE MECHANIC Narrative [facility] - 04/28/2023 1:22 PM COMBINE MECHANIC Current interpretive data was last updated January 26, 2021. For adults ages 40-79, the ACC/AHA recommends discussing your 10-year atherosclerotic cardiovascular disease risk with your health care provider. [email or web address].org/ASCVDApp us Gladys Box MD LAB BLOOD ORDERABLES Final Re sult [facility] * (ABNORMAL) Comprehensive metabolic panel (04/28/2023 10:22 AM COMBINE MECHANIC) Total Protein 7.2 6.1 - 8.4 g/dL [...] [facility] Blood 04/28/2023 10:2 2 AM COMBINE MECHANIC 04/28/2023 11:23 AM COMBINE MECHANIC us Gladys Box MD LAB BLOOD ORDERABLES Final Re sult [facility] from Last 3 Months or Most Recently Relevant to Health Maintenance Insurance MEDIC[facility] MEDICARE [facility] MEDICARE [facility] Advance Directives For more information, please contact: [phone] * Full Code (Latest Code Status on File) Date Activated Date Inactivated Comments 04/15/2022 4:03 PM 04/18/2022 9:50 PM * Full Code Date Activated Date Inactivated Comments 03/29/2022 4:51 PM 03/30/2022 7:50 PM Care Teams Machine Tender Relationship Specialty Start Date End Date Stuart Howe DO [address] [place] [address] PCP - General Family Medicine 05/10/21 July Maradiaga MD [address] [place] [address] Consulting Physician Cardiology 03/22/22 Bandar Up, RADHAT [address] [facility] [address] [address] Physical Therapist Physical Therapy 06/11/22 Esther Garcia, PT [address] [facility] [address] [id number] Physical Therapist Physical Therapy 08/13/22
--- OUTSIDE RECORDS SUMMARY | 2024-07-03 08:22 | XMS_ITS | Encounter Summary ---
Author Organization [employer] Address 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
--- OUTSIDE RECORDS SUMMARY | 2024-07-03 08:22 | XMS_ITS | Encounter Summary ---
Author Organization [facility] Address [address] [place] [address] Phone Care Team Providers Care Solar Designer Name Role Phone Stuart Howe DO Primary Care Provider July Maradiaga MD Unavailable [phone] Bandar Up DPT Unavailable [phone] Esther Garcia PT Unavailable [phone] Encounter Details Date Type Department Care Team (Late st Contact Info) Description 07/16/2022 Documentation [facility] Physical Therapy Pain Clinic [address] 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 Gender Identity Male 05/07/2021 12:04 AM CDT Sexual Orientation Straight 06/25/2022 9: 20 AM CDT documented as of this encounter Plan of Treatment Not on file documented as of this encounter Visit Diagnoses Not on filedocumented in this encounter Care Teams Solar Designer Relationship Specialty Start Date End Date Stuart Howe DO [address] [place] [address] PCP - General Family Medicine 05/10/21 July Maradiaga MD [address] [place] [address] Consulting Physician Cardiology 03/22/22 Bandar Up DPT [address] [facility] [place] [address] [place] [id number] Physical Therapist Physical Therapy 06/11/22 Esther Garcia PT [address] [facility] [place] [address] [facility] [place], [place] [phone] Physical Therapist Physical Therapy 08/13/22 documented as of this encounter
--- OUTSIDE RECORDS SUMMARY | 2024-07-03 08:22 | XMS_ITS | Continuity of Care Document ---
Author Organization [facility] Address [address] [place] [address] Phone Care Team Providers Care Knitting Inspector Name Role Phone Makeda Haynes Unavailable Unavailable Procedures Procedure Date Eye Exam & Treatment Refraction Eye Exam & Treatment Refraction Eye Exam & Treatment Refraction Advance Directives Directive Yes / No Effective Date File Name No Information Encounters Encounter Description Practice Location Reason(s) For Visit Diagnoses Date Provider Providers Copied on Encounter [facility], [address] [place] [address] [address], [place], [place], [id number], tel:[phone] [facility] No Information June-0 4-201 0 Ivy Ashford. [address], [place], [place], [facility], [place]. tel:[phone] [facility], [address] [place] [address] [address], [place], [place], [id number], tel:[phone] [facility] No Information June-0 1-200 9 Ivy Ashford. [address] , [address], [place], [address], [place]. tel:[phone] [facility], [id number] [place] [address] [address], [place], [place], [id number], tel:[phone] [facility] No Information Apr- 4-200 8 Ivy Ashford. [address] , [address], [place], [address], [place]. tel:[phone] Family History Family Member Type Diagnosis Age [...]
--- OUTSIDE RECORDS SUMMARY | 2024-07-03 08:22 | XMS_ITS | Encounter Summary ---
Author Organization [employer] Address 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 Gender Identity Not on file Sexual Orientation [...] OF CARE TESTING Edited Performing Organization Address City/[facility] Co de Phone Number INTERFACE SYSTEM Refer to clinic/hospital department * (ABNORMAL) POC GLUCOSE (06/30/2006 8:12 PM CDT) COMMENT, GLU POC Notified RN INTERFACE SYSTEM GLUCOSE POC 286(H) 65 - 99 mg/dL INTERFACE SYSTEM 06/30/2006 8:12 PM CDT Wellington Mendoza MD POINT OF CARE TESTING Edited Performing Organization Address [facility] de Phone Number INTERFACE SYSTEM Refer to clinic/hospital department * (ABNORMAL) POC GLUCOSE (06/30/2006 5:01 PM CDT) COMMENT, GLU POC Notified RN INTERFACE SYSTEM GLUCOSE POC 227(H) 65 - 99 mg/dL INTERFACE SYSTEM 06/30/2006 5:01 PM CDT Wellington Mendoza MD POINT OF CARE TESTING Edited Performing Organization Address [facility] de Phone Number INTERFACE SYSTEM Refer to clinic/hospital department * (ABNORMAL) POC GLUCOSE (06/30/2006 11:58 AM CDT) COMMENT, GLU POC Notified RN INTERFACE SYSTEM GLUCOSE POC 180(H) 65 - 99 mg/dL INTERFACE SYSTEM 06/30/2006 11:5 8 AM CDT us Wellington Mendoza MD POINT OF CARE TESTING Edited Performing Organization Address City/[facility] Co de Phone Number INTERFACE SYSTEM Refer to clinic/hospital department * (ABNORMAL) POC GLUCOSE (06/30/2006 9:10 AM CDT) GLUCOSE POC 165(H) 65 - 99 mg/dL INTERFACE SYSTEM 06/30/2006 9:10 AM CDT us Wellington Mendoza MD POINT OF CARE TESTING Edited Performing Organization Address [facility] de Phone Number INTERFACE SYSTEM Refer to clinic/hospital department * (ABNORMAL) POC GLUCOSE (06/30/2006 5:56 AM CDT) GLUCOSE POC 138(H) 65 - 99 mg/dL INTERFACE SYSTEM 06/30/2006 5:56 AM CDT us Wellington Mendoza MD POINT OF CARE TESTING Edited Performing Organization Address [facility] de Phone Number INTERFACE SYSTEM [...] and non- Americans is available on the [facility] Intranet at: [email or web address] Select: Lab Policies and Procedures Select: Reference Ranges - GFR 06/27/2006 11:1 7 AM CDT us Wellington Mendoza MD CHEMISTRY ORDERABLES Edited Performing Organization Address [facility] de Phone Number INTERFACE SYSTEM [...] Primary documented in this encounter Care Teams Senior Media Director Relationship Specialty Start Date End Date Ehsan Campos MD [address] [place] [id number] PCP - General 01/14/03 documented as of this encounter
--- OUTSIDE RECORDS SUMMARY | 2024-07-03 08:22 | XMS_ITS | Encounter Summary ---
Author Organization [employer] Address 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
--- OUTSIDE RECORDS SUMMARY | 2024-07-03 08:22 | XMS_ITS | Clinical Summary ---
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 Gender Identity Not on file Sexual Orientation [...] 11/29/2018, 05/10/2014 Medical Devices Implanted Type Area Radiological Defense Officer Device Identifier Shelf Expiration Date Model / Serial / Lot Rick Xpdm Crv W/Line 75mm 1797-71-075 - [id number] Implanted:Qty : 2 on 05/10/2014 by Alban Boyd MD at [facility] Rick N/A: Spine Lumbar [employer] 5 / / Description:Load 312 April 24 Screw Set Inner 1797-22-000 - [id number] Implanted:Qty : 6 on 05/10/2014 by Alban Boyd MD at [facility] Screw [employer] 0 / / Description:Load 39 2014 Screw Xpdm Fa 6.0x45mm 17999-645 - [id number] Implanted:Qty : 1 on 05/10/2014 by Alban Boyd MD at [facility] Screw [employer] 5 / / Description:Load 39 April 25, 2014 Screw Xpdm Fa 7.0x45mm 17999-745 - [id number] Implanted:Qty : 5 on 05/10/2014 by Alban Boyd MD at [facility] Screw [employer] 5 / / Description:Load 39 2014 Sealant Floseal W/ Adptr 10ml [id number] - [id number] Implanted:Qty : 1 on 05/10/2014 by Alban Boyd MD at [facility] Sealant N/A: Back [employer]- [place] 07/24/2015 [id number] / / [id number] Sealant Floseal W/ Adptr 10ml [id number] - [id number] Implanted:Qty : 1 on 09/04/2015 by Aixa Tamayo MD at [facility] Sealant N/A: Spine Lumbar [employer] 12/24/2016 [id number] / / [id number] Cross Cnnctr Xpdm Sfx 5.5 Ti 1893-02-406 - [id number] Implanted:Qty : 1 on 05/10/2014 by Alban Boyd MD at [facility] Spine N/A: Spine Lumbar [employer] 6 / / Description:Load 311 April Explanted Type Area Radiological Defense Officer Device Identifier Shelf Expiration Date Model / Serial / Lot Screw Xpdm Fa 7.0x45mm [id number] - [id number] Implanted:Alban Morillo MD (Quantity not on file) Explanted:Qty: 1 on 05/10/2014 at [facility] Screw [employer] [id number] / / Description:Load 39 April 25, 2014 Procedures Procedure Name Priority Date/Time Associated Diagnosis Comments HEMOGLOBIN A1C Add on 05/10/2014 5:32 PM CDT from Last 3 Months or Most Recently Relevant to Health Maintenance Results * (ABNORMAL) HEMOGLOBIN A1C (05/10/2014 5:32 PM CDT) HEMOGLOBIN A1C 6.6(H) 4.1 - 6.1 % of Hgb [facility] Qlue [facility] EST. AVG GLUCOSE, A1C 143 mg/dL [facility] Comment:Based on the ADAG st udy equation. Blood 05/10/2014 5:32 PM CDT 05/12/2014 6:49 PM CDT Narrative [facility] - 05/12/2014 6:50 PM CDT If not available from last three months us Chang Kidd MD CHEMISTRY ORDERABLES Final Resul t [facility]# [id number] [address] [place] [address] from Last 3 Months or Most Recently Relevant to Health Maintenance Insurance MEDICARE PART A AND B [facility] Advance Directives For more information, please contact: [phone] * Full Code (Latest Code Status on [...] 9:40 AM 05/10/2014 10:26 AM Care Teams Senior Environmental Technician Relationship Specialty Start Date End Date Ehsan Campos MD [address] [place], [facility] PCP - General 01/14/03
--- OUTSIDE RECORDS SUMMARY | 2024-07-03 08:22 | XMS_ITS | Referral Summary ---
Author Organization [facility] Address [address] [place] [address] Care Team Providers Care Director Of Tax Services Name Role Phone Stuart Howe DO Primary Care Provider July Maradiaga MD Unavailable [phone] Bandar Up DPT Unavailable [phone] Esther Garcia PT Unavailable [phone] Encounters Date Type Department Care Team Description 07/01/2024 10:21 AM CDT - 07/01/2024 11:59 PM CDT Hospital Encounter [facility] at [address] [place] [address] Micheal Blanco MD PhD Intractable neuropathic pain of lower extremity - Bilateral (Primary Dx); 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 Discharge Disposition: Discharge to home or self care 06/30/2024 Telephone [facility] at [address], [address] [place] [address] Micheal Blanco MD PhD [facility] Orders 06/24/2024 Telephone [facility] at [address] [place] [address] Micheal Blanco MD PhD 06/17/2024 Telephone [facility] at [address], [address] [place] [address] Micheal Blanco MD PhD PREQUTENZA CALL 06/17/2024 12:57 PM CDT - 06/17/2024 11:59 PM CDT Hospital Encounter [facility] at [address] [place] [address] Micheal Blanco MD PhD Intractable neuropathic pain of lower extremity (Primary Dx); Mononeuropathy multiplex syndrome; Chronic low back pain, unspecified back pain laterality, unspecified whether sciatica present; Chronic painful diabetic neuropathy (HCC) Discharge Disposition: Discharge to home or self care 05/14/2024 Telephone [facility] at [address], [address] [place] [address] Delia Washington RN PMC Intake Assessment 05/13/2024 1:30 PM CDT Office Visit [facility] Neuro Muscle [address] [facility] [address]th [place] [address] [place] [address] Wellington Alva MD PhD Peripheral nerve injury (Primary Dx); Mononeuropathy multiplex syndrome; Spinal stenosis of lumbar region, unspecified whether neurogenic claudication present; Chronic low back pain, unspecified back pain laterality, unspecified whether sciatica present 05/10/[address] [facility] Endocrinology Metabolism and Lipid [address] [facility] 13th [place] [address] [place] [id number] Jazzy Alvarado RMA Type 2 diabetes mellitus with hyperglycemia, without long-term current use of insulin (HCC) 05/03/2024 11:00 AM CDT Office Visit [facility] Endocrinology Metabolism and Lipid [address] [facility] [address]th [place] [address] [place] [address] Gladys Box MD Type 2 diabetes mellitus with hyperglycemia, without long-term current use of insulin ([facility]) (Primary Dx); Steroid-induced hyperglycemia; Type 2 diabetes mellitus with hyperglycemia, with long-term current use of insulin ([facility]) from Last 3 Months Allergies No known [...] hyperglycemia, with long-term current use of insulin ([facility]) Inject 24 Units under the skin daily [...] FOR ITCHING FOR 2 WEEK 5 Active Active Problems Problem Noted Date Diagnosed Date Chronic painful diabetic neuropathy 06/24/2024 Intractable neuropathic pain of lower extremity 06/17/2024 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 Hip pain 04/18/2022 Moderate malnutrition 04/16/2022 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 Overview (03/22/2022): Added automatically from request for surgery [id number] Essential (primary) hypertension 04/19/2020 Chronic back pain 04/19/2020 Hyperlipemia 05/11/2014 Sleep apnea 05/11/2014 Spinal stenosis 05/11/2014 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 Medical Devices Implanted Type Area Medical Malpractice Paralegal Device Identifier Shelf Expiration Date Model / Serial / Lot Stent Implanted:Qty: 3 Stent N/A: Heart [employer] Advance 3-4mm 50mm Allograft Graft Nerve Sterile [id number] - [id number] - [id number] Implanted:Qty: 1 on 03/29/2022 by Jacquie Sol MD at [facility] Advanced Medicine Left: Leg [employer] Inc 05/24/2024 [id number] / [id number] / [id number] [employer] Weck Horizon Ligate Triangulate Cross Section Wire Small Wide Latex Free [id number] - [id number] Implanted:Qty: 2 on 03/29/2022 by Jacquie Sol MD at [facility] Advanced Medicine Left: Leg [employer] 09/28/2026 [id number] / / Procedures Procedure Name Priority Date/Time Associated Diagnosis Comments POCT HEMOGLOBIN A1C Routine 05/03/2024 1 0:52 AM CDT Type 2 diabetes mellitus with hyperglycemia, without long-term current use of insulin (HCC) POCT GLUCOSE [id number] Routine 05/03/2024 10 :47 AM CDT Type 2 diabetes mellitus with hyperglycemia, without long-term current use of insulin (HCC) COMPREHENSIVE METABOLIC PANEL Routine 04/28/2023 10:22 AM MOLD MOVER Type 2 diabetes mellitus with hyperglycemia, with long-term current use of insulin (HCC) LIPID PANEL Routine 04/28/2023 10:22 AM MOLD MOVER Type 2 diabetes mellitus with hyperglycemia, with long-term current use of insulin (HCC) ALBUMIN CREATININE RATIO, URINE Routine 04/28/2023 10:22 AM MOLD MOVER Type 2 diabetes mellitus with hyperglycemia, with long-term current use of insulin ([facility]) from Last 3 Months or Most Recently [...] Albumin Creatinine Ratio, Urine (04/28/2023 10:22 AM MOLD MOVER) Microalb, Ur 13.1 0.0 - 22.9 mg/L [facility] Random Urine Creatinine 254.3 mg/dL [facility] Microalb/Creat Ratio 5.2 0.0 - 29.9 mg/g [facility] Urine 04/28/2023 10:2 2 AM MOLD MOVER 04/28/2023 11:23 AM MOLD MOVER us Gladys Box MD LAB URINE ORDERABLES Final Re sult [facility] * (ABNORMAL) Lipid panel (04/28/2023 10:22 AM MOLD MOVER) Triglycerides 165(H) <150 mg/dL [facility] [...] are elevated. Blood 04/28/2023 10:2 2 AM MOLD MOVER 04/28/2023 11:23 AM MOLD MOVER Narrative [facility] - 04/28/2023 1:22 PM MOLD MOVER Current interpretive data was last updated January 26, 2021. For adults ages 40-79, the ACC/AHA recommends discussing your 10-year atherosclerotic cardiovascular disease risk with your health care provider. [email or web address]://[email or web address].org/ASCVDApp us Gladys Box MD LAB BLOOD ORDERABLES Final Re sult [facility] * (ABNORMAL) Comprehensive metabolic panel (04/28/2023 10:22 AM MOLD MOVER) Total Protein 7.2 6.1 - 8.4 g/dL [...] [facility] Blood 04/28/2023 10:2 2 AM MOLD MOVER 04/28/2023 11:23 AM MOLD MOVER Gladys Box MD LAB BLOOD ORDERABLES Final Re sult [facility] from Last 3 Months or Most Recently Relevant to Health Maintenance Insurance MEDICARE [place] MEDICARE [place] MEDICARE [facility] Advance Directives For more information, please contact: [phone] * Full Code (Latest Code Status on File) Date Activated Date Inactivated Comments 04/15/2022 4:03 PM 04/18/2022 9:50 PM * Full Code Date Activated Date Inactivated Comments 03/29/2022 4:51 PM 03/30/2022 7:50 PM Care Teams Director Of Tax Services Relationship Specialty Start Date End Date Stuart Howe DO [address] [place] [address] PCP - General Family Medicine 05/10/21 July Maradiaga MD [address] [place] [address] Consulting Physician Cardiology 03/22/22 Bandar Up DPT [id number] [facility] [address] [address] Physical Therapist Physical Therapy 06/11/22 Esther Garcia, PT [address] [facility] [address] [address] Physical Therapist Physical Therapy 08/13/22
--- OUTSIDE RECORDS SUMMARY | 2024-07-03 08:22 | XMS_ITS | Encounter Summary ---
Author Organization [employer] Address [address] [place] [address] Care Team Providers Care Cutter Barrel Drum Name Role Phone Ehsan Campos MD Primary Care Provider [phone] Encounter Details Date Type Department Care Team (Late st Contact Info) Description 02/05/[address] [facility] ([facility]) [address] 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
--- OUTSIDE RECORDS SUMMARY | 2024-07-03 08:22 | XMS_ITS | Encounter Summary ---
Author Organization [employer] Address 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
--- OUTSIDE RECORDS SUMMARY | 2024-07-03 08:22 | XMS_ITS | Encounter Summary ---
Author Organization [facility] Healthcare Address [address] [place] [address] Care Team Providers Care Predictive Maintenance Specialist Name Role Phone Stuart Howe DO Primary Care Provider July Maradiaga MD Unavailable [phone] Bandar Up DPT Unavailable [phone] Esther Garcia PT Unavailable [phone] Reason for Visit * Reason Comments Follow-up Qutenza Encounter Details Date Type Department Care Team (Late st Contact Info) Description 07/01/2024 10:21 AM CDT - 07/01/2024 11:59 PM CDT Hospital Encounter [facility] [id number] [address], [address] [place] [address] Micheal Blanco MD PhD [address] [place] [address] Intractable neuropathic pain of lower extremity - Bilateral (Primary Dx); 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 Discharge Disposition: Discharge to home or self care Social History Tobacco Use Types Packs/Day Years [...] on file 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 Gender Identity Male 05/07/2021 12:04 AM CDT Sexual Orientation Straight 06/25/2022 9: 20 AM CDT documented as of this encounter Last Filed Vital Signs Vital Sign Reading Time Taken Comments Blood Pressure 173/85 07/01/2024 12:29 PM CDT Pulse 77 07/01/2024 12:29 PM CDT Temperature 36.2 C (97.2 F) 07/01/2024 10:28 AM CDT Respiratory Rate 18 07/01/2024 12:29 PM CDT Oxygen Saturation 100% 07/01/2024 12:29 PM CDT Inhaled Oxygen Concentration - - Weight - - Height - - Body Mass Index - - documented in this encounter Functional Status documented as of this encounter Discharge Instructions * Patient Instructions* Jazzy Lamb, ESCOBAR - 07/01/2024 10:45 AM CDT [facility] DISCHARGE INSTRUCTIONS [phone] (Friday-Friday 7:30 am - 4:00 pm) PLAN: PROCEDURE TODAY: PROCEDURE AT NEXT VISIT: DIAGNOSTIC TEST(S): FOLLOW UP: 3 months for [facility] PATIENT EDUCATION QUTENZA POST-PROCEDURE INFORMATION SHEET WHEN YOU GET HOME: Resume your normal medication. Resume your normal diet. After you get home, take off socks and wash your feet with a mild soap and water. It is advised to wash your socks before wearing again. The areas treated with Qutenza may be sensitive to heat, so you may wish to avoid hot showers or baths, direct sunlight, and vigorous exercise for a few days following treatment. The most common side effects of Qutenza included redness, pain, itching, or small bumps where Qutenza was applied, and nausea. If the site feels like it is burning, apply the Cleansing Gel or Aloe Vera to site. You can also use over the counter pain medication or ice packs to help with the burning. Qutenza can cause serious side effects including pain, rash/blistering, and increases in blood pressure during and right after treatment. If any of these side effects occur, please contact your doctor. If you experience ANY of the above serious symptoms, Call 911 and go to the Emergency Department. Notify [facility] AFTER receiving care for the symptoms. Please call [facility] [place] if you have questions or concerns @ [phone] The Pain Management Center is committed to providing your medication refills in a timely manner. When submitting a refill request, please note the following guidelines: Federal guidelines recommend patients with chronic pain, for whom opioid medications are prescribed, be evaluated at least once every two-three months.The Pain Management Center adheres to these guidelines and patients should plan to be seen at least every two-three months (or more frequently, as deemed appropriate by the prescribing provider). To allow timely scheduling of evaluations, please contact the office to schedule your appointment 6-8 weeks in advance. For all opioid/narcotic prescription refills, please contact the Pain Management Center at least 7 days prior to the date of need. Call [phone] choose option #5 and leave the following information: Name, date of , and phone number Name(s) of the medication(s) needing refill Name and number for the pharmacy where the refill(s) should be sent All non-opioid/non-narcotic refill requests should be submitted directly to the pharmacy. The pharmacy will then contact the [facility] with the necessary information. For any questions about your visit or your procedure, please call the Pain Management Center [phone] (Friday-Friday 7:30 am - 4:00 pm). Please leave a message on the Nurse Line for ALL Non Urgent matters (option #5). If you have an urgent matter during normal business hours please choose option #4 for current patients. If you need urgent attention after 4 pm, on the weekends, or a holiday that can not wait until the office opens: Please call 911 or go to the nearest Emergency Room. documented in this encounter Medications at Time of Discharge acetaminophen (TYLENOL) 500 mg tablet Take 2 tablets (1,000 mg total) by mouth every 6 (six) hours 60 tablet 1 03/29/2022 albuterol HFA (PROVENTIL HFA,VENTOLIN HFA,PROAIR HFA) 90 mcg/actuation inhaler Inhale 2 puffs every 6 (six) hours as needed for wheezing or shortness of breath 08/19/2021 aspirin 81 mg enteric coated tablet Take 1 tablet (81 mg total) by mouth daily with breakfast atorvastatin (LIPITOR) 20 mg tablet Take 2 tablets (40 mg total) by mouth nightly clobetasoL (TEMOVATE) 0.05 % cream APPLY TOPICALLY TWICE A DAY NEEDED FOR ITCHING FOR 2 WEEK 06/08/2024 doxazosin (CARDURA) 1 mg tablet TAKE 1 TABLET BY MOUTH DAILY FOR 3 MONTHS 04/09/2024 folic acid (FOLVITE) 1 mg tablet Take 1 tablet (1,000 mcg total) by mouth every morning 01/23/2022 insulin glargine 100 unit/mL (3 mL) pen for injectionIndicat ions:Steroid-ind uced hyperglycemia,Ty pe 2 diabetes mellitus with hyperglycemia, with long-term current use of insulin (HCC) Inject 24 Units under the skin daily 15 mL 3 08/06/2023 insulin lispro (HumaLOG, ADMELOG) 100 unit/mL pen for injection 12 - 15 units with meal 5 units for snacks plus 1 for every 40 > 150 - TDD 70 units 30 mL 11 08/19/2022 ipratropium (ATROVENT) 42 mcg (0.06 %) nasal spray PLACE 2 SPRAYS IN NOSTRILS 3 TIMES DAILY 06/28/2024 ipratropium-albu teroL (DUO-NEB) 0.5-2.5 mg/3 mL nebulizer solution Inhale 3 mL every 6 (six) hours as needed 12/16/2023 lansoprazole (PREVACID) 30 mg capsule Administer per tube 1 capsule (30 mg total) daily before breakfast 12/16/2023 metoprolol tartrate (LOPRESSOR) 25 mg immediate release tablet Take 0.5 tablets (12.5 mg total) by mouth 2 (two) times a day NovoLOG 100 unit/mL (3 mL) pen for injection INJECT 5 - 15 UNITS UNDER THE SKIN 4 TO 6X DAILY MEALTIME & CORRECTION BOLUS (MAX 90 UNITS/DAY) 15 mL 1 10/21/2023 pen needle, diabetic 32 gauge x 32 needleIndication s:Type 2 diabetes mellitus with hyperglycemia, without long-term current use of insulin (HCC) Use as directed with basal, bolus, and correction insulin 5 to 6 times a day. 500 each 3 05/10/2024 rOPINIRole (REQUIP) 1 mg tablet Take 1 tablet (1 mg total) by mouth 3 (three) times a day traZODone (DESYREL) 50 mg tablet Take 1 tablet (50 mg total) by mouth nightly trospium (SANCTURA) 20 mg tablet Take 1 tablet (20 mg total) by mouth nightly 06/28/2024 documented as of this encounter Discharge Disposition Disposition Code Departure Means Destination Discharge to home or self care documented in this encounter Progress Notes * Micheal Blanco MD PhD - 07/01/2024 10:45 AM CDT Images from the original note were not included. Patient Name: Gavin Fenton : 1945 Today's Date: 07/01/2024 PCP: Stuart Howe DO Referring clinician: Stuart Howe,* [facility] Follow up Patient Evaluation Chief Complaint: Chief Complaint Patient presents with Follow-up Qutenza Today Date: 07/01/2024 He returns to clinic for His b/l LE neuropathic pain. He describes His pain with the following features: Pain Score: 5 - Moderate pain Pain Location: Foot Pain Orientation: Bilateral Pain Descriptors: Sharp, Stabbing, Numbness Pain Radiating Towards: radiates up to the top fo the feet Pain Frequency: Constant/continuous Effect of Pain on Daily Activities: moderate to severe effect on ADLs In the interim, he has decided he wants to proceed with SCS trial. Pain psych pending. Patient Reported Outcome Measures (PROs) Pain Management Pgic 06/26/2024 8:26 PM CDT - Filed by Patient Since beginning treatment at this clinic, how would you describe the change (if any) in ACTIVITY LIMITATIONS, SYMPTOMS, EMOTIONS and OVERALL QUALITY OF LIVE, related to your painful condition? SelectONE: Almost the same, hardly any change at all In a similar way, please select the number below, that matches your degree of change since beginning care at this clinic: 7 Overall pain relief 80% Ability to perform daily activities 70% I expect to get medications Neutral I expect to actively work on assignment(s) and/or rehabilitation activities that are a part of my treatment plan Agree On a 0-10 scale, what pain intensity do you think would allow you to have a reasonable quality of life? 8 Undergo a procedure for my pain High Priority Receive new medications for my pain Lower Priority Review my current pain medications High Priority Learn ways to decrease pain's effect High Priority Day to day activities High Priority Enjoyment of life High Priority Understand my condition and its treatment options High Priority Other (free text): Visual Analog Scale (Vas) For Pain 06/26/2024 8:28 PM CDT - Filed by Patient Please use the scale below to indicate the level of pain you are experiencing. (range: 0 [No pain] - 10 [The worst imaginable pain]) 6.26 Visual Analog Scale (VAS) for Pain Score (range: 0 - 10) 6.26 [facility] Pain Intro Questionnaire 06/26/2024 8:43 PM CDT - Filed by Patient Where are you experiencing pain currently? Both Pain Intensity The pain is very severe at the moment Personal Care (Washing, Dressing, etc.) It is painful to look after myself and I am slow and careful Lifting Pain prevents me lifting heavy weights off the floor, but I can manage if they are conveniently positioned, for example on a table Reading I can???t read as much as I want because of moderate pain in my neck Headaches I have slight headaches, which come frequently Concentration I have a lot of difficulty in concentrating when I want to Work I cannot do my usual work Driving I can hardly drive at all because of severe pain in my neck Sleeping My sleep is greatly disturbed (3-4 hrs sleepless) Recreation I can???t do any recreation activities at all Pain Intensity 3 - Pain medication provides me with moderate relief from pain Personal Care (e.g., washing, dressing) 2 - It is painful to take care of myself, and I am slow andcareful Lifting 3 - Pain prevents me from lifting heavy weights off the floor, but I can manage light to medium weights if they are conveniently positioned Walking 4 - I can walk only with crutches or a cane Sitting 2 - Pain prevents me from sitting for more than 1 hour Standing 3 - Pain prevents me from standing for more than 1/2 an hour Sleeping 3 - Even when I take medication, I sleep less than 4 hours Social Life 3 - Pain prevents me from going out very often Traveling 3 - My pain restricts my travel over 1 hour Employment/Homemaking 3 - Pain prevents me from doing anything but light duties Promis-29 V2.1 Profile Short Form 06/26/2024 8:50 PM CDT - Filed by Patient Are you able to do chores such as vacuuming or yard work? Unable to do Are you able to go up and down stairs at a normal pace? Unable to do Are you able to go for a walk of at least 15 minutes? With much difficulty Are you able to run errands and shop? With much difficulty In the past 7 days I felt fearful Never I found it hard to focus on anything other than my anxiety Never My worries overwhelmed me Never I felt uneasy Never In the past 7 days I felt worthless Never I felt helpless Never I felt depressed Never I felt hopeless Never During the past 7 days / In the past 7 days I feel fatigued Quite a bit I have trouble starting things because I am tired Quite a bit How run-down did you feel on average? Quite a bit How fatigued were you on average? Quite a bit In the past 7 days My sleep quality was... Fair In the past 7 days My sleep was refreshing. A little bit I had a problem with my sleep. Quite a bit I had difficulty falling asleep. Quite a bit I have trouble doing all of my regular leisure activities with others Usually I have trouble doing all of the family activities that I want to do Always I have trouble doing all of my usual work (include work at home) Always I have trouble doing all of the activities with friends that I want to do Always In the past 7 days How much did pain interfere with your day to day activities? Very much How much did pain interfere with work around the home? Very much How much did pain interfere with your ability to participate in social activities? 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 7 PROMIS Physical Function T-Score (range: 10 - 90) 29 (severe dysfunction) !! PROMIS Anxiety T-Score (range: 10 - 90) 40 (within normal limits) PROMIS Depression T-Score (range: 10 - 90) 41 (within normal limits) PROMIS Fatigue T-Score (range: 10 - 90) 65 (moderate) ! PROMIS Sleep Disturbance T-Score (range: 10 - 90) 60 (mild) PROMIS Ability to Participate in Social Roles & Activities T-Score (range: 10 - 90) 34 (moderate dysfunction) ! PROMIS Pain Interference T-Score (range: 10 - 90) 76 (severe) !! PROMIS Pain Intensity (range: 0 - 10) 7 HISTORY OF PRESENT ILLNESS: Gavin Fenton is a 78 y.o. year old male referred by Stuart Howe,*. Male has a past medical history of Arthritis, Asthma, Diabetes mellitus ([facility]), Gastric reflux, GERD(gastroesophageal reflux disease), OTHER MEDICAL, Hypercholesteremia, Hypertension, Hypertriglyceridemia, Kidney stone, Left-sided sensorineural hearing loss, Myocardial infarction (HCC), Obstructivesleep apnea, Sarcoidosis of lung, and Type 2 diabetes mellitus (HCC). 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 Followed by Dr. Alva in neuromuscular He describes pain localizing to the following areas: His neuropathy manifests as pain in his lower extremities. He also has pain through his cervical and lumbar spine. He describes his pain with the following features: DN4-Symptoms Questionnaire for Neuropathic Pain Location: mostly calves Yes No History 1. Does the pain have one or more of the following characteristics? Burning [x] [] Painful Cold [] [x] Electric Shocks [x] [] 2. Is the pain associated with one or more of the following symptoms in the same area? Tingling [x] [] Pins and [place] [x] [] Numbness [x] [] Itching [] [x] Score (Yes = 1, No = 0) 5 /7 A score of >= 3 indicates high probability of neuropathic pain A score of <3 does not exclude neuropathic pain Pain Assessment Pain Score: 7 Pain Location: Leg Pain Descriptors: Aching, Burning, Sharp, Shooting Pain Frequency: Constant/continuous Pain Onset: Ongoing Sleep is affected by his LE neuropathic pain Also has low back pain Medications include Pt states he has a hard time with remembering medications Efficacy (Very helpful, Somewhat helpful, Not Helpful) Side Effects Taking currently? Gabapentin (Neurontin Not helpful [] Pregabalin (Lyrica) [] Amitriptyline (Elavil) [] Nortriptyline (Pamelor) [] Duloxetine (Cymbalta) Made him too sleepy [] Venlafaxine Caused mood disorder [] Low-Dose Naltrexone [] Tramadol (Ultram) Memory loss [] Topical lidocaine Not sure if it was helpful [] Topical capsaicin [] Opioids (oxycodone, morphine, hydromorphone, hydrocodone, etc) [] Other acetaminophen [x] Pain impairments in function, activities of daily living (ADL), and quality of life (QoL): Yes Patient-Reported Outcomes (PROs): Visual Analog Scale (Vas) For Pain 06/11/2024 8:06 AM CDT - Filed by Patient Please use the scale below to indicate the level of pain you are experiencing. (range: 0 [No pain] - 10 [The worst imaginable pain]) 8.09 Visual Analog Scale (VAS) for Pain Score (range: 0 - 10) 8.09 Promis-29 V2.1 Profile Short Form 06/11/2024 8:12 AM CDT - Filed by Patient Are you able to do chores such as vacuuming or yard work? With much difficulty Are you able to go up and down stairs at a normal pace? With much difficulty Are you able to go for a walk of at least 15 minutes? With much difficulty Are you able to run errands and shop? With much difficulty In the past 7 days I felt fearful Never I found it hard to focus on anything other than my anxiety Never My worries overwhelmed me Never I felt uneasy Never In the past 7 days I felt worthless Never I felt helpless Never I felt depressed Never I felt hopeless Never During the past 7 days / In the past 7 days I feel fatigued Somewhat I have trouble starting things because I am tired Quite a bit How run-down did you feel on average? Somewhat How fatigued were you on average? Somewhat In the past 7 days My sleep quality was... Poor In the past 7 days My sleep was refreshing. Somewhat I had a problem with my sleep. Quite a bit I had difficulty falling asleep. Somewhat I have trouble doing all of my regular leisure activities with others Sometimes I have trouble doing all of the family activities that I want to do Usually I have trouble doing all of my usual work (include work at home) Usually I have trouble doing all of the activities with friends that I want to do Usually In the past 7 days How much did pain interfere with your day to day activities? Quite a bit How much did pain interfere with work around the home? Quite a bit How much did pain interfere with your ability to participate in social activities? 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 7 PROMIS Physical Function T-Score (range: 10 - 90) 32 (moderate dysfunction) ! PROMIS Anxiety T-Score (range: 10 - 90) 40 (within normal limits) PROMIS Depression T-Score (range: 10 - 90) 41 (within normal limits) PROMIS Fatigue T-Score (range: 10 - 90) 59 (mild) PROMIS Sleep Disturbance T-Score (range: 10 - 90) 58 (mild) PROMIS Ability to Participate in Social Roles & Activities T-Score (range: 10 - 90) 40 (mild dysfunction) PROMIS Pain Interference T-Score (range: 10 - 90) 67 (moderate) ! PROMIS Pain Intensity (range: 0 - 10) 7 Current and Prior Therapies Current Home medications: HOME MEDICATIONS : acetaminophen (TYLENOL) 500 mg tablet aspirin 81 mg enteric coated tablet atorvastatin (LIPITOR) 20 mg tablet clobetasoL (TEMOVATE) 0.05 % cream doxazosin (CARDURA) 1 mg tablet folic acid (FOLVITE) 1 mg tablet insulin glargine 100 unit/mL (3 mL) pen for injection insulin lispro (HumaLOG, ADMELOG) 100 unit/mL pen for injection ipratropium (ATROVENT) 42 mcg (0.06 %) nasal spray lansoprazole (PREVACID) 30 mg capsule metoprolol tartrate (LOPRESSOR) 25 mg immediate release tablet pen needle, diabetic 32 gauge x /32 needle rOPINIRole (REQUIP) 1 mg tablet traZODone (DESYREL) 50 mg tablet trospium (SANCTURA) 20 mg tablet albuterol HFA (PROVENTIL HFA,VENTOLIN HFA,PROAIR HFA) 90 mcg/actuation inhaler ipratropium-albuteroL (DUO-NEB) 0.5-2.5 mg/3 mL nebulizer solution NovoLOG 100 unit/mL (3 mL) pen for injection Anticoagulation History: Current anticoagulation therapy: No Histories Past Medical History: Past Medical History: Diagnosis Date Arthritis Asthma Diabetes mellitus (HCC) Gastric reflux GERD (gastroesophageal reflux disease) HX OTHER MEDICAL Diabetes Type II Hypercholesteremia Hypertension Hypertension Hypertriglyceridemia Kidney stone Left-sided sensorineural hearing loss Myocardial infarction (HCC) Obstructive sleep apnea Does not tolerate CPAP 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 Type 2 diabetes mellitus (HCC) Allergies: No Known Allergies Surgical History: Past Surgical History: Procedure Laterality Date BACK SURGERY x6 CARDIAC STENT PLACEMENT 2019 x3 CHOLECYSTECTOMY 1986 HAND SURGERY Bilateral unknown dates HERNIA REPAIR 1971 LUMBAR FUSION 2015 3-5 MICRODISCECTOMY 2016 L2-4 NECK SURGERY SINUS SURGERY x3 VASECTOMY 04/08/1977 Social History: Social History Tobacco Use Smoking status: Former Current packs/day: 0.00 Types: Cigarettes Quit date: 02/25/1964 Years since quittin.3 Smokeless tobacco: Never Substance and Sexual Activity Drug use: No Sexual activity: Defer Alcohol Use: Not At Risk (07/01/2024) AUDIT-C Frequency of Alcohol Consumption: Never Average Number of Drinks: Not on file Frequency of Binge Drinking: Not on file Family History: Family History Problem Relation Age of Onset Heart disease Mother Diabetes Mother Arthritis Mother Heart attack Mother Myocardial Infarction; Cause of : Myocardial Infarction Diabetes Father Heart disease Father Arthritis Father Heart attack Father Myocardial Infarction; Hypertension Sister Arthritis Sister Hypertension Sister Hypertension; Arthritis Brother HIV Brother Arthritis Son Heart disease Other Arthritis Other Diabetes Other Anesthesia problems Neg Hx Labs and Diagnostics Review Hemoglobin A1c: Resulted in the Past 12 Months 05/03/24 1052 11/03/23 0943 HGBA1C 8.1 7.9 CBC: Lab Results Component Value Date WBC 8.0 04/28/2023 HGB 11.9 (L) 04/28/2023 HCT 35.8 (L) 04/28/2023 LABPLAT 172 03/03/2023 NEUTOPHILPCT 58.6 04/28/2023 LYMPHOPCT 19.8 (L) 04/28/2023 MONOPCT 15.7 (H) 04/28/2023 EOSPCT 5.0 04/28/2023 CMP: Lab Results Component Value Date SODIUM 141 06/06/2022 POTASSIUM 4.1 06/06/2022 CHLORIDE 104 06/06/2022 CO2 25 04/28/2023 ANIONGAP 5 06/06/2022 GLUCOSE 101 (H) 04/28/2023 BUNSER 21 06/06/2022 CREATININE 1.18 04/28/2023 CALCIUM 9.4 04/28/2023 PROTEIN 6.4 03/31/2013 ALBUMIN 4.0 04/28/2023 ALKPHOS 103 04/28/2023 ALT 29 04/28/2023 AST 30 04/28/2023 BILITOT 0.39 04/28/2023 Creatinine:CrCl cannot be calculated (Patient's most recent lab result is older than the maximum 90days allowed.). No results for input(s): CREATININE in the last 8736 hours. Inflammatory Markers: No results for input(s): SEDRATE , CRP in the last 8736 hours. Diagnostic Imaging Review: > cervical and lumbar spine imaging reviewed CT Cervical Spine WO Contrast Result Date: 06/28/2024 PROCEDURE: CT CERVICAL SPINE WO CONTRAST, DATE/TIME OF EXAM: 06/28/2024 2:19 PM, LOCATION [facility] INDICATION: S12.100G: Closed odontoid fracture with delayed healing, subsequent encounter TECHNIQUE: CT of the cervical spine was performed without contrast according to standard protocol. CT dose reduction technique was used, including Automated Exposure Control. COMPARISON: X-raycervical spine 12/12/[address] neck soft tissue [...] increased width of the anterior fracture line measuring8 mm (series 6, image 75), and slight posterior malalignment of the odontoid. *Redemonstration of po stoperative changes of anterior cervical fusion with interbody [...] these levels. Prevertebral soft tissues appear normal. IMPRESSION: 1.Redemonstrated postsurgical changes of internal fixation of the type II fracture with2 transfixing odontoid screws. Interval seen lucencies around the proximal portion of the medial screw and proximal and distal portion of the lateral screw concerning for loosening. Lateral screw tipterminates outside of the dens near the lateral aspect. Interval slight increased width of the anterior fracture line measuring 8 mm (series 6, image 75), and slight posterior malalignment of the odontoid. 2.Redemonstration of postoperative changes of anterior cervical fusion with interbody fusion devices at C4-C6 levels without evidence of instrumentation failure. 3.Multilevel varying degrees ofadvanced degenerative disc and joint disease. Report dictated by Jose David Braga MD, ([employer]). I, Nito Prabhakar MD have personally reviewed and interpreted this examination/study. > Interpreting Provider: Nito Prabhakar MD on 06/28/2024 4:17 PM PHYSICAL EXAM: Vitals: 07/01/24 1028 07/01/24 1148 07/01/24 1208 07/01/24 1229 BP: 151/77 154/76 159/76 (!) 173/85 BP Location: Left arm Left arm Patient Position: Sitting Sitting Pulse: 76 72 69 77 Resp: 18 16 16 18 Temp: 97.2 ??F (36.2 ??C) TempSrc: Temporal SpO2: 100% 100% 100% 100% There is no height or weight on file to calculate BMI. GENERAL: Well-appearing, no apparent distress, appears stated age. HEENT: Normocephalic, EOMI, nares patent, trachea midline. CARDIOVASCULAR: Well-perfused extremities. RESPIRATORY: Non-labored breathing. ABDOMINAL: Normal external appearance. PYSCH: Pleasant, normal affect, distress mood. SKIN: Overall warm and dry. NEUROMUSCULOSKELETAL: Alert & oriented. Absent light touch sensation up to knee 4/5 DF ASSESSMENT:: Gavin Fenton is a 78 y.o. male who presents for evaluation of pain. The pain complaints are most likely due to: 1. Intractable neuropathic pain of lower extremity - Bilateral 2. 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 His neuropathic pain in his lower extremities is multifactorial and may also have contributions from his diabetes. He has ongoing Neck and back pain with history of cervical and lumbar fusion surgeries. His pain is significantly affecting his quality of life as noted in the PROMIS- 29 and NPSI questionnaires. NeuPSIG Grading System for Neuropathic Pain Status Details Comments Possible History of relevant neurological lesion or disease [x] Pain Distribution Neuroanatomically Plausible [x] Probable Pain is associated with sensory signs the same neuroanatomically plausible distribution [x] Definite Diagnostic testing confirming a lesior or disease of the somatosensory nervous system explaining the pain [x] Final Grade: Definite Neuropathic Pain Selin Wilkerson. et al. Pain 157, [id number] (2016). Interval Assessment 07/01/2024 Pain unchanged, still significant QOL reduction on PROMIS-29 PLAN: No orders of the defined types were placed in this encounter. Medication management: Discussed prior, current and potential future medication management options with the patient in detail. > continue current regimen, no changes at this time Qutenza to bilateral feet at today and then every 3 months for the diabetic contribution to his peripheral neuropathic pain New Medications Ordered This Visit capsaicin (QUTENZA) 8 % patch 4 patch Apply to affected area:: foot Laterality: Bilateral Therapy: Home exercise Diagnostic studies: Available diagnostic studies/images reviewed as noted above. Diagnostic images reviewed with the patient in clinic. > none Intervention: > He continues to be a good candidate for spinal cord stimulator given the definitive neuropathic nature of his lower extremity pain. His lumbar fusion only went up to L2 so there is sufficient entry space for the leads in the relevant areas. Pain psych pending. Risks of the procedure were discussed including but not limited to: post- procedure pain, infection,bleeding, temporary or permanent damage to surrounding structures, reaction to the injectate (if any), hardware misplacement (if any), seizures, paralysis and/or . Patient reports understanding and consent to proceed. Justification for interventional pain treatment: Patient with constant, at least moderate average pain severity affecting activities of daily living, function and quality of life as demonstrated by collected patient-reported outcomes (PROs) questionnaires. Patient has exhausted conservative methods as noted above. Goals: - short term: pain relief, improved mobility and tolerance with prolonged standing and prolonged sitting, and ambulatory status given moderate to severe pain - roasterman: improvement in function and quality of life, improvement with personal care, improvement with participation in social activities Referral: To Pain Psych for SCS eval. Follow-up: After evaluation for potential SCS trial Risks/benefits of all pharmacologic and interventional treatments discussed and questions answered. I spent greater than 40 minutes at today office visit time to provide a multidisciplinary pain management care for this patient this including review existing medical records, obtaining and/or reviewing separately obtained history, performing examination, counseling/educating patient, ordering medic ations, tests, or procedures, referring and communicating with other health child care leader, independently interpreting results and communicating results to the patient and discussing pain management therapies with the patient. I answered all the patient's questions at today visit. I also spent time to administer and supervised the treatment of Qutenza. Patient has a complex condition requiring ongoing longitudinal care. Micheal Blanco MD, PhD Printing Plate Maker, Department of Anesthesiology [facility] documented in this encounter Miscellaneous Notes * Perioperative Nursing Note - Laura Gómez RN - 07/01/2024 10:45 AM CDT Qutenza Procedure Note Patient's feet intact, with no open wounds/sores. Vital signs obtained before, during, and after procedure. Patient tolerated procedure well. No adverse reactions noted. Patient's feet remained intact. Discharge instructions gone over with patient, and patient verbalized understanding. Escorted patient to exam room. Obtained vital signs. Reviewed patient's allergies and current medications. Obtained and verified patient's complex medical/surgical history. Confirmed the reason for visit with the patient. Obtained the following screening assessments: [] Modified Oswestry Low Back Pain Questionnaire [] PMC Intake Questionnaire [x] PMC Follow up Questionnaire [x] Fall Risk Assessment (Rosamaria, Shey Cardona, Meliza) [x] Depression/Anxiety Assessment (GAD7, PHQ-9, Hardee Suicide, Ramirez Depression) [] Disability Scale [] CAGE [] SOAPP-R Additional tasks included: [] Random medication adherence check (pill verification by two nurses) [] Work/school note written [] Wound/skin check/dressing change [] Pain assessment for more than one site [] Coordination of multiple or complex referrals or imaging studies [] Anticoagulant therapy coordination on day of visit [] Monitoring or assistance in patient physical exam or assessment [] Expanded evaluation and/or monitoring of vital signs [] Administration of medication by the clinical staff [] Specimen/lab preparation and collection [] Emergency medical care or intervention [] Call an ACT, MANAGER POWER, or transfer to a higher level of care [] Coordination of direct admission or urgent/emergent surgery [x] Qutenza application Vital Signs Temp: 97.2 ??F (36.2 ??C) Temp src: Temporal Pulse: 72 Resp: 16 BP: 154/76 BP Location: Left arm BP Method: Automatic Patient Position: Sitting SpO2: 100 % Post-visit transport confirmed with the patient. Total time spent for patient care, education, and care coordination was approximately greater than 41 minutes. documented in this encounter Plan of Treatment [...] Reduce the likelihood of falling Lifestyle Eloisa Pardo, RN Note: Below are four things you [...] on stairs Contact your local community or [facility] for information on exercise, fall prevention programs, or options for improving home safety. 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 Topical local anesthesia utilization with subsequent removal/drying is recommended prior to 8% Capsaicin. PPE including nitrile gloves and face/eye protection (at minimum) should be utilized by healthcare team applying patch., Apply to affected area: foot, Laterality: Bilateral Medication Applied 07/01/2024 11:48 AM CDT 4 patches Other (Comment) documented in this encounter Historical Medications * This list may reflect changes made after this encounter. clobetasoL (TEMOVATE) 0.05 % cream APPLY TOPICALLY TWICE A DAY NEEDED FOR ITCHING FOR 2 WEEK 06/08/2024 trospium (SANCTURA) 20 mg tablet Take 1 tablet (20 mg total) by mouth nightly 06/28/2024 ipratropium (ATROVENT) 42 mcg (0.06 %) nasal spray PLACE 2 SPRAYS IN NOSTRILS 3 TIMES DAILY 06/28/2024 added in this encounter Orders Medications Ordered That David ht Not Have Been Administered Count Last Ordered Date First Ordered Date capsaicin (QUTENZA) 8 % patch 4 patch 1 09/2024 documented in this encounter Care Teams Predictive Maintenance Specialist Relationship Specialty Start Date End Date Stuart Howe DO [address] [place] [address] PCP - General Family Medicine 05/10/21 July Maradiaga MD [address] [place] [address] Consulting Physician Cardiology 03/22/22 Bandar Up DPT [address] [facility] [address] [address] Physical Therapist Physical Therapy 06/11/22 Esther Garcia, PT [address] [facility] [address] [id number] Physical Therapist Physical Therapy 08/13/22 documented as of this encounter
--- OUTSIDE RECORDS SUMMARY | 2024-07-03 08:22 | XMS_ITS | Encounter Summary ---
Author Organization [facility] Address [address] [place] [address] Care Team Providers Care Market Asset Protection Manager Name Role Phone Ehsan Campos MD Primary Care Provider [phone] Encounter Details Date Type Department Care Team (Latest Contact Info) Description 06/22/1999 Outpatient Historical HIS [facility] GINA Barba, Wilmer Wang MD [address] [place] [phone] Abdominal pain, epigastric (Primary Dx) Social History Tobacco Use Types Packs/Day Years Used Date Smoking Tobacco: Never Assessed Sex and Gender Information Value Date Recorded Sex Assigned at Not on file Legal 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
--- OUTSIDE RECORDS SUMMARY | 2024-07-03 08:22 | XMS_ITS | Clinical Summary ---
Author Organization [facility] Address [address] [place] [address] Care Team Providers Care Solar Installation Technician Name Role Phone Cipriano Del Cid DINKEY OPERATOR-BUSINESS INVESTOR Primary Care Provider [phone] Source Comments [facility],non-owned Affiliates and Associated Physician Practices is amultiple site organization consisting of ambulatory clinics and hospital sitesin [place], [place], [place] and [place]. This disclosure is being madepursuant to the Care Everywhere program and may not contain all information available regarding this patient. Last updated 17.[facility] Allergies Active Allergy Reactions Criticality Noted Date [...] at bedtime 4 Active saline nasal spray ([place]; Baby [place]) 0.65 % nasal spray [place] 2 (two) sprays into each nostril every [...] FOR 2 WEEK 5 Active nystatin (Mycostatin) 443243 UNIT/ML suspension ADMINISTER 2ML TO EACH CHEEK POUCH EVERY 6 HOURS FOR 10 DAY 5 Active tuberculin PPD (Tubersol) 5 UNIT/0.1ML injection Tuberculin PPD Solution 5 UNIT/0.1ML active 035950 RXNORM 0.1 ml Intradermal every evening shift [...] (05/01/2023): Added automatically from request for surgery [id number] 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 04/19/2020 05/01/2023 [...] 05/11/2014 05/01/2023 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 05/01/2023 Overview (05/01/2023): Coronary arteriosclerosis in craig artery Resolved Problems Problem Noted Date Diagnosed Date Resolved Date Bacterial pneumonia 11/18/2023 12/16/19 24 Fever 11/27/2018 12/11/2018 Encounters Date Type Department Care Team Description 06/28/2024 2:45 PM CDT Office Visit [facility] - Neurosurgery [address] [place] [phone] Demetrius Morgan MD Closed odontoid fracture with nonunion, subsequent encounter (Primary Dx) 06/28/2024 1:42 PM CDT - 06/28/2024 11:59 PM CDT Hospital Encounter [facility] [address] [place] [address] Demetrius Morgan MD Discharge Disposition: Home or Self Care 06/28/2024 Travel 05/31/2024 11:30 AM CDT Office Visit [facility] - Neurosurgery [address] [place] [phone] Demetrius Morgan MD Closed odontoid fracture with delayed healing, subsequent encounter (Primary Dx) 05/31/2024 Travel 05/26/2024 10:15 AM CDT Office Visit [facility] - ENT [address] [place] [phone] Vinicius Avalos MD Bilateral sensorineural hearing loss (Primary Dx); Asymmetric SNHL (sensorineural hearing loss) 05/26/2024 9:00 AM CDT Office Visit [facility] - ENT [address] [place] [phone] Honey Manrique, [employer] 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 Travel 05/13/2024 9:00 AM CDT Office Visit [facility] - ENT [address] [place] [phone] Honey Manrique SLP Prestruonglakwaku (Primary Dx); Presbyphonia 05/13/2024 Travel 05/06/2024 3:45 PM CDT Office Visit [facility] - ENT [address] [place] [phone] Byron Robins MD Presbylarynges (Primary Dx); Presbyphonia 05/06/2024 Refill [facility] [address] [place] [phone] Deepak Larson MD Refill Request 05/06/2024 Travel 04/11/2024 Refill [facility] [address] [place] [phone] Deepak Larson MD Refill Request from Last 3 [...] and heating? Not hard at all 11/07/2023 [facility] [place] [facility] Occupat ional Health - Occupational Stress [...] place to sleep or slept in a snf (including now)? 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 Gender Identity Not on file Sexual Orientation [...] Description 09/29/2024 10:00 AM CDT Office Visit [facility] - ENT [address] [place] [phone] Honey Manrique SLP [address] [place] [address] [place] [phone] 09/29/2024 11:00 AM CDT Office Visit [facility] - ENT [address] [place] [phone] Vinicius Avalos MD [address] [place] [address] [address] [place] [address] Health Maintenance Due Date Last Done Comments [...] this topic Medical Devices Implanted Type Area Director Corporate Communications Device Identifier Shelf Expiration Date Model / Serial / Lot Screw 4mm 38mm Spne Jose Eleazar Ucss Ti Implanted:Qty: 1 on 11/14/2023 by Demetrius Morgan MD at [facility] N/A: Spine Cervical [employer] [id number] / / Screw 4mm 38mm Eleazar Lag Spne Jose Ucss Implanted:Qty: 1 on 11/15/2023 by Demetrius Morgan MD at [facility] N/A: Spine Cervical [employer] [id number] / [...] disc and joint disease. Report dictated by Joes David Braga MD, (Seed Trucker). I, Nito Prabhakar MD have personally reviewed and interpreted this examination/study. > Interpreting Provider: Nito Prabhakar MD on 06/28/2024 4:17 PM Narrative 06/28/2024 4:17 PM CDT PROCEDURE: CT CERVICAL SPINE WO CONTRAST, DATE/TIME OF EXAM: 06/28/2024 2:19 PM, LOCATION [facility] INDICATION: S12.100G: Closed odontoid fracture with [...] DATE/TIME OF EXAM: 06/28/2024 2:19 PM, LOCATION [facility] INDICATION: S12.100G: Closed odontoid fracture with [...] Report dictated by Jose David Braga MD, (Seed Trucker). I, Nito Prabhakar MD have personally reviewed and interpreted this examination/study. > Interpreting Provider: Nito Prabhakar MD on 06/28/2024 4:17 PM us Demetrius Morgan MD CT ORDERABLES Final Re sult * (ABNORMAL) COMPREHENSIVE METABOLIC PANEL (12/16/2023 6:56 AM CDT) BUN 26 7 - 26 mg/dL 12/16/2023 8:14 AM [facility] Creatinine 0.74 0.71 - 1.16 mg/dL 12/16/2023 8:14 AM [facility] Sodium 139 136 - 145 mmol/L 12/16/2023 8:14 AM [facility] Potassium 3.6 3.5 - 4.5 mmol/L 12/16/2023 8:14 AM [facility] Chloride 100 98 - 107 mmol/L 12/16/2023 8:14 AM [facility] CO2 29 22 - 29 mmol/L 12/16/2023 8:14 AM [facility] Glucose 224(H) 70 - 115 mg/dL 12/16/2023 8:14 AM [facility] Calcium 9.1 8.4 - 10.2 mg/dL 12/16/2023 8:14 AM [facility] Protein Total 6.8 6.0 - 8.3 g/dL 12/16/2023 8:14 AM [facility] Albumin 3.1(L) 3.4 - 5.0 g/dL 12/16/2023 8:14 AM [facility] Bilirubin Total 0.5 0.2 - 1.2 mg/dL 12/16/2023 8:14 AM [facility] Alkaline Phosphatase 96 40 - 150 U/L 12/16/2023 8:14 AM [facility] ALT 38 5 - 55 U/L 12/16/2023 8:14 AM [facility] AST 38(H) 5 - 34 U/L 12/16/2023 8:14 AM [facility] Anion Gap 10 6 - 16 12/16/2023 8:14 AM [facility] BUN/Creatinine Ratio 35(H) 7 - 23 12/16/2023 8:14 AM [facility] Osmolality Calculated 300(H) 275 - 295 mOsm/kg 12/16/2023 8:14 AM [facility] Albumin/Globulin Ratio 0.8(L) 1.1 - 2.3 12/16/2023 8:14 AM [facility] eGFR by CKD-EPI >90 >=90 mL/min/1.7 3 m2 12/16/2023 8:14 AM [facility] Blood BLOOD SPECIMEN / Unknown Lab Venipuncture / Unknown 12/16/2023 6:56 AM CDT 12/16/2023 7:48 AM T us Ananth Murphy DINKEY OPERATOR-BUSINESS INVESTOR LAB - CHEMISTRY ORDERABL ES Final Result Performing Organization Address City/State/[facility] Co de Phone Number [facility] [address] [place] [phone], [facility] [phone] * (ABNORMAL) HEMOGLOBIN A1C (11/06/2023 4:00 AM [facility]) Hemoglobin A1c 7.9(H) <=5.6 % 11/06/2023 9:00 AM [facility] Estimated Average Glucose 180 mg/dL 11/06/2023 9:00 AM [facility] Comment: HbA1c Interpretation: Normal : < 5.7% Pre-diabetes: 5.7-6.4% Diabetes: Equal to or greater than 6.5% Test results diagnostic of diabetes should be repeated for confirmation. Treatment target values recommended by ADA and other clinical organizations should be used to evaluate metabolic control in patients. Reference: [place] Diabetes Association, Standards of Care in Diabetes [...] LAB - CHEMISTRY ORDERABLES F inal Result [facility] [address] [place] [address], [facility] [phone] from Last 3 Months or Most Recently Relevant to Health Maintenance Additional Health Concerns Infection Onset Date Last Indicated MRSA Hx 11/07/2023 11/07/2023 Insurance MEDICARE [facility] [place] [id number] MEDICARE Advance Directives * Full Code (Latest Code Status on File) Date Activated Date Inactivated Comments 11/04/2023 11:12 PM 12/16/2023 8:27 PM * Full Code Date Activated Date Inactivated Comments 11/28/2018 12:22 AM 12/01/2018 1:00 PM Care Teams Solar Installation Technician Relationship Specialty Start Date End Date Cipriano Del Cid APRN-NATE [address] [place] [address] PCP - General 12/26/22
== END 2024-07-03 08:20 | disposition home or self-care (01) ==
LOC: CHSIMG 08:20
PROVIDERS: PCP Nurse Practitioner Family; Visit Provider Nurse Practitioner Family
DX: R41.3 Other amnesia (principal)
CPT/HCPCS: 70551

== ENCOUNTER 2024-07-07 08:32 | Outpatient (CLI) | payer MEDICARE, OTHER, SELFPAY ==
--- NOTE | ~2024-07-07 | US_ITS ---
EXAMINATION: US art doppler w press DON CAMARGO DATE: 07/07/2024 9:51 CDT INDICATION: Peripheral vascular disease TECHNIQUE: Segmental pressures and plethysmographic and Doppler waveforms of the brachial and lower e xtremity arteries were obtained. COMPARISON: None. FINDINGS: Right and left brachial artery pressures of 142 mm Hg and 144 mm Hg, respectively, are concordant (no rmal difference <= 30 mmHg). The right high-thigh pressure index is 1.31 (normal > 1.2). The right ankle-brachial index (ADELA) is 1 .23 (normal >= 0.9-1.0). The right great toe-brachial index (TBI) is 0.74 (normal >= 0.60). The right lower extremity segmental pressure gradients are normal (normal gradients <= 20-30 mmHg between lois cent levels on the same leg or the same levels on the two legs). Arterial Doppler waveforms are bipha sic.. The left high-thigh pressure index is 1.23. The left ADELA is 1.26. The left TBI is 0.7. The left lower extremity segmental pressure gradients are normal. Arterial Doppler waveforms are predominantly biph asic with triphasic flow in the left common femoral artery.. IMPRESSION: 1. Unremarkable lower extremity arterial Doppler. Normal ankle-brachial indices. Reviewed, dictated and finalized at location A. IMPRESSION: 1. Unremarkable lower extremity arterial Doppler. Normal ankle-brachial indices .
--- OUTSIDE RECORDS SUMMARY | 2024-07-07 08:41 | XMS_ITS | Encounter Summary ---
Author Organization [facility] Address 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
--- OUTSIDE RECORDS SUMMARY | 2024-07-07 08:41 | XMS_ITS | Encounter Summary ---
Author Organization [employer] Address 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 Gender Identity Not on file Sexual Orientation [...] INTERFACE SYSTEM 06/10/2006 1:47 PM CDT Result [facility] Wellington Mendoza MD HEMATOLOGY ORDERABLES Edited Performing Organization Address [facility] Phone Number INTERFACE SYSTEM Refer to clinic/hospital department * TOTAL PROTEIN, CSF (06/10/2006 1:47 PM CDT) PROTEIN, CSF 43 15 - 45 mg/dL INTERFACE SYSTEM 06/10/2006 1:47 PM CDT Wellington Mendoza MD BODY FLUIDS AND STOOLS Edited Performing Organization Address [facility] Phone Number INTERFACE SYSTEM Refer to clinic/hospital department * (ABNORMAL) GLUCOSE, CSF (06/10/2006 1:47 PM CDT) GLUCOSE, CSF 75(H) 40 - 70 mg/dL INTERFACE SYSTEM 06/10/2006 1:47 PM CDT Wellington Mendoza MD BODY FLUIDS AND STOOLS Edited Performing Organization Address [facility] INTERFACE SYSTEM Refer to clinic/hospital [...] FLUIDS AND STOOLS Edited Performing Organization Address [facility] Phone Number INTERFACE SYSTEM Refer to [...] and non- Americans is available on the [facility] Intranet at: [email or web address] Select: Lab Policies and Procedures Select: Reference Ranges - GFR 06/10/2006 10:3 5 AM CDT us Wellington Mendoaz MD CHEMISTRY ORDERABLES Edited Performing Organization Address City/[facility]/ZIP Co de Phone Number INTERFACE SYSTEM Refer to clinic/hospital department * HEMOGLOBIN AND HEMATOCRIT (06/10/2006 10:35 AM CDT) HEMOGLOBIN 14.5 13.6 - 16.5 g/dL INTERFACE SYSTEM HEMATOCRIT 42.3 40.0 - 48.0 % INTERFACE SYSTEM 06/10/2006 10:3 5 AM CDT us Wellington Mendoza MD HEMATOLOGY ORDERABLES Edited Performing Organization Address [facility]/State/ZIP Co de Phone Number INTERFACE SYSTEM Refer to clinic/hospital department documented in this encounter Visit Diagnoses Diagnosis Cervicalgia- Primary documented in this encounter Care Teams Printed Forms Proofreader Relationship Specialty Start Date End Date Ehsan Campos MD [address] [place] [address] PCP - General 01/14/03 documented as of this encounter
--- OUTSIDE RECORDS SUMMARY | 2024-07-07 08:41 | XMS_ITS | Encounter Summary ---
Author Organization [facility] Address [address] [place] [address] Phone Care Team Providers Care Vp Talent Management Name Role Phone Stuart Howe DO Primary Care Provider July Maradiaga MD Unavailable [phone] Bandar Up DPT Unavailable [phone] Esther Garcia PT Unavailable [phone] Encounter Details Date Type Department Care Team (Late st Contact Info) Description 02/01/2022 Telephone [facility] Scheduling [address] [place] [address] Galilea Esteban CMA Social History Tobacco Use Types Packs/Day Years Used Date Smoking Tobacco: Former Cigarettes Q uit: 02/25/1964 Alcohol Use Standard Drinks/Week Comments No 0 (1 standard drink = 0.6 oz pur e alcohol) Sex and Gender Information Value Date Recorded Sex Assigned at Not on file 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 Gender Identity Male 05/07/2021 12:04 AM CDT Sexual Orientation Straight 06/25/2022 9: 20 AM CDT documented as of this encounter Plan of Treatment Not on file documented as of this encounter Visit Diagnoses Not on filedocumented in this encounter Care Teams Vp Talent Management Relationship Specialty Start Date End Date Stuart Howe DO [address] [place] [address] PCP - General Family Medicine 05/10/21 July Maradiaga MD [address] [place] [address] Consulting Physician Cardiology 03/22/22 Bandar Up, RADHAT [address] [facility] [place] [address] [address] Physical Therapist Physical Therapy 06/11/22 Esther Garcia, PT [address] [facility] [place] [address] [address] Physical Therapist Physical Therapy 08/13/22 documented as of this encounter
--- OUTSIDE RECORDS SUMMARY | 2024-07-07 08:41 | XMS_ITS | Encounter Summary ---
Author Organization [facility] Address [address] [place] [address] Care Team Providers Care Brand Engineer Name Role Phone Ehsan Campos MD Primary Care Provider [phone] Encounter Details Date Type Department Care Team (Late st Contact Info) Description 02/05/[address] [facility] Support Serv. (Adt Cardiology[facility]) [address] 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
--- OUTSIDE RECORDS SUMMARY | 2024-07-07 08:41 | XMS_ITS | Encounter Summary ---
Author Organization [employer] Address [address] [place] [address] Care Team Providers Care Metal Window Screen Assembler Name Role Phone Ehsan Campos MD Primary Care Provider [phone] Encounter Details Date Type Department Care Team (Late st Contact Info) Description 06/27/2006 [facility] [address] 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
--- OUTSIDE RECORDS SUMMARY | 2024-07-07 08:41 | XMS_ITS | Clinical Summary ---
Author Organization [facility] [employer] Address [address] [place] [address] Care Team Providers Care Pot Firer Name Role Phone Cipriano Del Cid TOWER AIR TRAFFIC CONTROL SPECIALIST-WIRE DRAWING SETTER Primary Care Provider [phone] Source Comments [facility],non-owned Affiliates and Associated Physician Practices is amultiple site organization consisting of ambulatory clinics and hospital sitesin [place], [place], [place] and [place]. This disclosure is being madepursuant to the Care Everywhere program and may not contain all information available regarding this patient. Last updated 17.[facility] [employer] Allergies Active Allergy Reactions Criticality Noted Date [...] at bedtime 4 Active saline nasal spray (Beckemeyer; Baby [place]) 0.65 % nasal spray Hematite 2 (two) sprays into each nostril every [...] FOR 2 WEEK 5 Active nystatin (Mycostatin) 771143 UNIT/ML suspension ADMINISTER 2ML TO EACH CHEEK POUCH EVERY 6 HOURS FOR 10 DAY 5 Active tuberculin PPD (Tubersol) 5 UNIT/0.1ML injection Tuberculin PPD Solution 5 UNIT/0.1ML active 258003 RXNORM 0.1 ml Intradermal every evening shift [...] (05/01/2023): Added automatically from request for surgery [id number] Atherosclerotic heart diseas e of [place] coronary artery without angina pectoris 04/19/2020 05/01/2023 [...] 05/11/2014 05/01/2023 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 05/01/2023 Overview (05/01/2023): Coronary arteriosclerosis in [place] artery Resolved Problems Problem Noted Date Diagnosed Date Resolved Date Bacterial pneumonia 11/18/2023 12/16/19 24 Fever 11/27/2018 12/11/2018 Encounters Date Type Department Care Team Description 06/28/2024 2:45 PM CDT Office Visit [facility] [address] [place] [phone] Demetrius Morgan MD Closed odontoid fracture with nonunion, subsequent encounter (Primary Dx) 06/28/2024 1:42 PM CDT - 06/28/2024 11:59 PM CDT Hospital Encounter [facility] [address] [place] [address] Demetrius Morgan MD Discharge Disposition: Home or Self Care 06/28/2024 Travel 05/31/2024 11:30 AM CDT Office Visit [facility] [address] [place] [phone] Demetrius Morgan MD Closed odontoid fracture with delayed healing, subsequent encounter (Primary Dx) 05/31/2024 Travel 05/26/2024 10:15 AM CDT Office Visit [facility] E[facility] [address] [place] [phone] Vinicius Avalos MD Bilateral sensorineural hearing loss (Primary Dx); Asymmetric SNHL (sensorineural hearing loss) 05/26/2024 9:00 AM CDT Office Visit [facility] [address] [place] [phone] Honey Manrique, HUMAN ANATOMY TEACHER 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 Travel 05/13/2024 9:00 AM CDT Office Visit [facility] - ENT [address] [place] [phone] Honey Manrique SLP Prestruonglakwaku (Primary Dx); Presbyphonia 05/13/2024 Travel 05/06/2024 3:45 PM CDT Office Visit [facility] - ENT [address] [place] [phone] Byron Robins MD Presbylarynges (Primary Dx); Presbyphonia 05/06/2024 Refill [facility] Sleep Services [address] [place] [phone] Deepak Larson MD Refill Request 05/06/2024 Travel 04/11/2024 Refill [facility] [address] [place] [phone] Deepak Larson MD Refill Request from Last [...] and heating? 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 Gender Identity Not on file Sexual Orientation [...] Description 09/29/2024 10:00 AM CDT Office Visit [facility] - ENT [address] [place] [phone] Honey Manrique SLP [address] [place] [address] [place] [phone] 09/29/2024 11:00 AM CDT Office Visit [facility] - [facility]NT [address] [place] [phone] Vinicius Avalos MD [address] [place] [address] [address] [place] [address] Health Maintenance Due Date Last Done Comments [...] this topic Medical Devices Implanted Type Area Yarn Comber Device Identifier Shelf Expiration Date Model / Serial / Lot Screw 4mm 38mm Spne Jose Eleazar Ucss Ti Implanted:Qty: 1 on 11/14/2023 by Demetrius Morgan MD at [facility] N/A: Spine Cervical [employer] 873-038 / / Screw 4mm 38mm Eleazar Lag Spne Jose Ucss Implanted:Qty: 1 on 11/15/2023 by Demetrius Morgan MD at [facility] N/A: Spine Cervical [employer] [id number] / [...] Report dictated by Jose David Braga MD, (Hand Cigar Maker). I, Nito Prabhakar MD have personally reviewed and interpreted this examination/study. > Interpreting Provider: Nito Prabhakar MD on 06/28/2024 4:17 PM Narrative 06/28/2024 4:17 PM CDT PROCEDURE: CT CERVICAL SPINE WO CONTRAST, DATE/TIME OF EXAM: 06/28/2024 2:19 PM, LOCATION [facility] INDICATION: S12.100G: Closed odontoid fracture with [...] DATE/TIME OF EXAM: 06/28/2024 2:19 PM, LOCATION [facility] INDICATION: S12.100G: Closed odontoid fracture with [...] Report dictated by Jose David Braga MD, (Hand Cigar Maker). I, Nito Prabhakar MD have personally reviewed and interpreted this examination/study. > Interpreting Provider: Nito rPabhakar MD on 06/28/2024 4:17 PM us Demetrius Morgan MD CT ORDERABLES Final Re sult * (ABNORMAL) COMPREHENSIVE METABOLIC PANEL (12/16/2023 6:56 AM CDT) BUN 26 7 - 26 mg/dL 12/16/2023 8:14 AM [facility] Creatinine 0.74 0.71 - 1.16 mg/dL 12/16/2023 8:14 AM [facility] Sodium 139 136 - 145 mmol/L 12/16/2023 8:14 AM [facility] Potassium 3.6 3.5 - 4.5 mmol/L 12/16/2023 8:14 AM [facility] Chloride 100 98 - 107 mmol/L 12/16/2023 8:14 AM [facility] CO2 29 22 - 29 mmol/L 12/16/2023 8:14 AM [facility] Glucose 224(H) 70 - 115 mg/dL 12/16/2023 8:14 AM [facility] Calcium 9.1 8.4 - 10.2 mg/dL 12/16/2023 8:14 AM [facility] Protein Total 6.8 6.0 - 8.3 g/dL 12/16/2023 8:14 AM [facility] Albumin 3.1(L) 3.4 - 5.0 g/dL 12/16/2023 8:14 AM [facility] Bilirubin Total 0.5 0.2 - 1.2 mg/dL 12/16/2023 8:14 AM [facility] Alkaline Phosphatase 96 40 - 150 U/L 12/16/2023 8:14 AM [facility] ALT 38 5 - 55 U/L 12/16/2023 8:14 AM [facility] AST 38(H) 5 - 34 U/L 12/16/2023 8:14 AM [facility] Anion Gap 10 6 - 16 12/16/2023 8:14 AM [facility] BUN/Creatinine Ratio 35(H) 7 - 23 12/16/2023 8:14 AM [facility] Osmolality Calculated 300(H) 275 - 295 mOsm/kg 12/16/2023 8:14 AM [facility] Albumin/Globulin Ratio 0.8(L) 1.1 - 2.3 12/16/2023 8:14 AM [facility] eGFR by CKD-EPI >90 >=90 mL/min/1.7 3 m2 12/16/2023 8:14 AM [facility] Blood BLOOD SPECIMEN / Unknown Lab Venipuncture / Unknown 12/16/2023 6:56 AM CDT 12/16/2023 7:48 AM T us Ananth Murphy TOWER AIR TRAFFIC CONTROL SPECIALIST-WIRE DRAWING SETTER LAB - CHEMISTRY ORDERABL ES Final Result Performing Organization Address City/State/[facility] Co de Phone Number [facility] [address] [place] [address], [facility] [phone] * (ABNORMAL) HEMOGLOBIN A1C (11/06/2023 4:00 AM [facility]) Hemoglobin A1c 7.9(H) <=5.6 % 11/06/2023 9:00 AM [facility] Estimated Average Glucose 180 mg/dL 11/06/2023 9:00 AM [facility] Comment: HbA1c Interpretation: Normal : < 5.7% Pre-diabetes: 5.7-6.4% Diabetes: Equal to or greater than 6.5% Test results diagnostic of diabetes should be repeated for confirmation. Treatment target values recommended by ADA and other clinical organizations should be used to evaluate metabolic control in patients. Reference: [place] [employer], Standards of Care in Diabetes [...] ORDERABLES F inal Result [facility] [address] [place] [address], [facility] [phone] from Last 3 Months or Most Recently Relevant to Health Maintenance Additional Health Concerns Infection Onset Date Last Indicated MRSA Hx 11/07/2023 11/07/2023 Insurance MEDICARE [facility] [place] [id number] MEDICARE Advance Directives * Full Code (Latest Code Status on File) Date Activated Date Inactivated Comments 11/04/2023 11:12 PM 12/16/2023 8:27 PM * Full Code Date Activated Date Inactivated Comments 11/28/2018 12:22 AM 12/01/2018 1:00 PM Care Teams Pot Firer Relationship Specialty Start Date End Date Cipriano Del Cid APRN-NATE [address] [place] [address] PCP - General 12/26/22
--- OUTSIDE RECORDS SUMMARY | 2024-07-07 08:41 | XMS_ITS | Encounter Summary ---
Author Organization [employer] Address 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
--- OUTSIDE RECORDS SUMMARY | 2024-07-07 08:41 | XMS_ITS | Clinical Summary ---
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 Overview (04/18/2022): Coronary arteriosclerosis in [place] artery Type 2 diabetes mellitus wit h hyperglycemia, with long-term current use of insulin On methylprednisolone therapy IgA deficiency IgM deficiency Persistent 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 complication Encounters Date Type Department Care Team Description 07/05/2024 10:30 AM CDT Telemedicine [facility] Pain Management [address] [place] [address] Collin Cardona, PhD Other chronic pain (Primary Dx); Intractable neuropathic pain of lower extremity; No diagnosis on [place] I 07/01/2024 10:21 AM CDT - 07/01/2024 11:59 PM CDT Hospital Encounter [facility] at [address], [address] [place] [address] Micheal Blanco MD PhD Intractable neuropathic pain of lower extremity - Bilateral (Primary Dx); 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 Discharge Disposition: Discharge to home or self care 06/30/2024 Telephone [facility] Management Center at [address], [address] [place] [address] Micheal Blanco MD PhD Qutenza Orders 06/24/2024 Telephone [facility] at [address], [address] [place] [address] Micheal Blanco MD PhD 06/17/2024 12:57 PM CDT - 06/17/2024 11:59 PM CDT Hospital Encounter [facility] at [address], [address] [place] [phone] Micheal Blanco MD PhD Intractable neuropathic pain of lower extremity (Primary Dx); Mononeuropathy multiplex syndrome; Chronic low back pain, unspecified back pain laterality, unspecified whether sciatica present; Chronic painful diabetic neuropathy (HCC) Discharge Disposition: Discharge to home or self care 06/17/2024 Telephone [facility] at [address], [address] [place] [address] Micheal Blanco MD PhD PREQUTENZA CALL 05/14/2024 Telephone [facility] at [address], [address] [place] [phone] Delia Washington RN PMC Intake Assessment 05/13/2024 1:30 PM CDT Office Visit [facility] Neuro Muscle [address] [facility] 6th [place] [address] [place] [address] Wellintgon Alva MD PhD Peripheral nerve injury (Primary Dx); Mononeuropathy multiplex syndrome; Spinal stenosis of lumbar region, unspecified whether neurogenic claudication present; Chronic low back pain, unspecified back pain laterality, unspecified whether sciatica present 05/10/2024 Orders Only [facility] Endocrinology Metabolism and Lipid [address] [facility] 13th [place] [address] [place] [address] Jazzy Alvarado, NIKKY Type 2 diabetes mellitus with hyperglycemia, without long-term current use of insulin (HCC) 05/03/2024 11:00 AM CDT Office Visit [facility] Endocrinology Metabolism and Lipid [address] [facility] Medicine 13th [place] [address] [place] [address] Gladys Box MD Type 2 diabetes mellitus [...] on file 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 Medical Devices Implanted Type Area Software Design Engineer Device Identifier Shelf Expiration Date Model / Serial / Lot Stent Implanted:Qty: 3 Stent N/A: Heart [employer] Advance 3-4mm 50mm Allograft Graft Nerve Sterile [id number] - [id number] - [id number] Implanted:Qty: 1 on 03/29/2022 by Jacquie Sol MD at [facility] Left: Leg [employer] 05/24/2024 [id number] / [id number] / [id number] [employer] Weck Horizon Ligate Triangulate Cross Section Wire Small Wide Latex Free [id number] - [id number] Implanted:Qty: 2 on 03/29/2022 by Jacquie Sol MD at [facility] Left: Leg [employer] 09/28/2026 [id number] / / Procedures Procedure Name Priority Date/Time Associated Diagnosis Comments POCT HEMOGLOBIN A1C Routine 05/03/2024 1 0:52 AM CDT Type 2 diabetes mellitus with hyperglycemia, without long-term current use of insulin (HCC) POCT GLUCOSE [id number] Routine 05/03/2024 10 :47 AM CDT Type 2 diabetes mellitus with hyperglycemia, without long-term current use of insulin (HCC) COMPREHENSIVE METABOLIC PANEL Routine 04/28/2023 10:22 AM SERVER SERVICE ASSISTANT Type 2 diabetes mellitus with hyperglycemia, with long-term current use of insulin (HCC) LIPID PANEL Routine 04/28/2023 10:22 AM SERVER SERVICE ASSISTANT Type 2 diabetes mellitus with hyperglycemia, with long-term current use of insulin (HCC) ALBUMIN CREATININE RATIO, URINE Routine 04/28/2023 10:22 AM SERVER SERVICE ASSISTANT Type 2 diabetes mellitus with hyperglycemia, with [...] Albumin Creatinine Ratio, Urine (04/28/2023 10:22 AM SERVER SERVICE ASSISTANT) Microalb, Ur 13.1 0.0 - 22.9 mg/L [facility] Random Urine Creatinine 254.3 mg/dL [facility] Microalb/Creat Ratio 5.2 0.0 - 29.9 mg/g [facility] Urine 04/28/2023 10:2 2 AM SERVER SERVICE ASSISTANT 04/28/2023 11:23 AM SERVER SERVICE ASSISTANT Gladys Box MD LAB URINE ORDERABLES Final Re sult [facility] * (ABNORMAL) Lipid panel (04/28/2023 10:22 AM SERVER SERVICE ASSISTANT) Pathologist [facility] Triglycerides 165(H) <150 mg/dL [facility] [...] or Walt GASTON et al. YUDY Cardiol. 2018;3(8):749-903. Consider the use of non-HDL-c to estimate atherosclerotic cardiovascular disease risk. The Friedewald equation is accurate in most patients when triglycerides are less than 150 mg/dL. Consider the use of non-HDL-C or Apo B to help estimate atherosclerotic cardiovascular diesase risk if triglycerides are elevated. Blood 04/28/2023 10:2 2 AM SERVER SERVICE ASSISTANT 04/28/2023 11:23 AM SERVER SERVICE ASSISTANT Narrative [facility] - 04/28/2023 1:22 PM SERVER SERVICE ASSISTANT Current interpretive data was last updated January 26, 2021. For adults ages 40-79, the ACC/AHA recommends discussing your 10-year atherosclerotic cardiovascular disease risk with your health care provider. https://www.acc.org/ASCVDApp us Gladys Box MD LAB BLOOD ORDERABLES Final Re sult [facility] * (ABNORMAL) Comprehensive metabolic panel (04/28/2023 10:22 AM SERVER SERVICE ASSISTANT) Total Protein 7.2 6.1 - 8.4 g/dL [...] [facility] Blood 04/28/2023 10:2 2 AM SERVER SERVICE ASSISTANT 04/28/2023 11:23 AM SERVER SERVICE ASSISTANT us Gladys Box MD LAB BLOOD ORDERABLES Final Re sult [facility] from Last 3 Months or Most Recently Relevant to Health Maintenance Insurance MEDICARE [facility] MEDICARE [facility] MEDICARE [employer] [place] Advance Directives For more information, please contact: [phone] * Full Code (Latest Code Status on File) Date Activated Date Inactivated Comments 04/15/2022 4:03 PM 04/18/2022 9:50 PM * Full Code Date Activated Date Inactivated Comments 03/29/2022 4:51 PM 03/30/2022 7:50 PM Care Teams Banana Loader Relationship Specialty Start Date End Date Stuart Howe DO [address] [place] [address] PCP - General Family Medicine 05/10/21 July Maradiaga MD [address] [place] [address] Consulting Physician Cardiology 03/22/22 Bandar Up DPT [address] [facility] [address] [id number] Physical Therapist Physical Therapy 06/11/22 Esther Garcia, PT [address] [facility] [address] [phone] Physical Therapist Physical Therapy 08/13/22
--- OUTSIDE RECORDS SUMMARY | 2024-07-07 08:41 | XMS_ITS | CONTINUITY OF CARE DOCUMENT ---
Author Name robyn carlson Address Unknown Organization [facility] Address [address] [facility] [address] [place] [address] Phone [phone] Care Team Providers Care Structural Engineering Project Manager Name Role Phone Hiren YAP, July Unavailable [phone] BUSCHLING DO, SINAN Unavailable [phone] BUSCHLING DO, SINAN Unavailable PROBLEMS Condition Status Date Provider Notes Cardiology examination completed 4 - July Maradiaga MD HTN essential active July Maradiaga MD Preoperative cardiovascular evaluation completed - July Maradiaga MD Cardiology examination active July swenson MD Immune deficiency active Isis Ventimiglia PRIVATE DETECTIVE Chronic Back Pain active July Maradiaga MD GERD active July Maradiaga MD Diabetes mellitus active July Maradiaga MD Dyslipidemia active July Maradiaga MD CAD - s/p NATE RCA, Ramus 03/2013, s/p BMS OM1 05/14 active July Maradiaga MD ENCOUNTERS Date Type Provider Location Encounter Diag nosis - In-person encounter Office Visit July Maradiaga MD [facility] - In-person encounter Office Visit July Maradiaga MD [facility] Cardiology examination - In-person encounter Office Visit July Maradiaga MD [facility] - In-person encounter Office Visit July Maradiaga MD [facility] Preoperative cardiovascular evaluation - In-person encounter Office Visit July Maradiaga MD [facility] Immune deficiency - In-person encounter Office Visit July Maradiaga MD [facility] - In-person encounter Office Visit July Maradiaga MD [facility] - In-person encounter Office Visit July Maradiaga MD [facility] CAD - s/p NATE RCA, Ramus 03/2013, s/p BMS OM1 05/14 - In-person encounter Office Visit July Maradiaga MD [facility] Cardiology examination - In-person encounter Office Visit July Maradiaga MD [facility] CAD - s/p NATE RCA, Ramus [...] blood pressure, systolic 126 mm[Hg] Tab itha [place] oxygen saturation, oximetry 96 % Liza [place] respiratory rate E&M 12 /min Liza [place] [...] [lb_av] Mina y height E&M 69 [in_i] [facility] Body Mass Index (Ratio) 25.40 [...] lder height E&M 69 [in_i] Geni Lauren [facility] Body Mass Index (Ratio) 27.26 kg/m2 Ron [...] 100 unit/mL insulin pen active Isis Bernicemiglia PRIVATE DETECTIVE fluticasone propionate 50 mcg/actuation spray,suspensio n active as needed [facility] Advair HFA 45-21 mcg/actuation HFA aerosol inhaler completed - July Maradiaga MD nortriptyline 10 mg capsule completed - [facility] folic acid 1 mg tablet active Take 1 tablet by mouth once a day [facility] albuterol sulfate 90 mcg/actuation HFA aerosol inhaler active INHALED 1 PUFF EVERY 4 HOURS NEEDED FOR SHORTNESS OF BREATH OR WHEEZING Isis Queenmicarlos WHEELERP dexamethasone 6 mg tablet completed TAKE 1 TABLET ORALLY DAILY - [facility] clopidogrel 75 mg tablet completed TAKE 1 TABLET BY MOUTH EVERY DAY - Isis Queenmiglnegrita WHEELERP pantoprazole 40 mg tablet,delayed release (DR/EC) active TAKE 1 TABLET BY MOUTH EVERY DAY [facility] aspirin 81 mg tablet,chewable active Take [...] mouth three times a day Isis Ventimiglia PRIVATE DETECTIVE #90, 90 days supply, Prescribed by YANIRA [...] MD drug use no Isis Ventimig jaime PRIVATE DETECTIVE alcohol use no Isis Ventimig jaime PRIVATE DETECTIVE smoking status Never smoker Isis castro PRIVATE DETECTIVE social history reviewed E&M revi ewed - [...] social history E&M S moking History: P ujan has never smoked. July Maradiaga MD social history reviewed E&M revi ewed - no changes required July Maradiaga MD smoking status Never smoker Gein lr social history E&M S moking History: [...] Management Plan continue current therapy Isis Valverde PRIVATE DETECTIVE HRA, CV Assess/Plan, Angina (inactive) Management Plan [...] Payer name Policy type / Coverage type [facility] alliance party ID [employer] [id number] [place] MEDIC[place] Medicare [id number] ADVANCE DIRECTIVES Name Date DISCUSSED - NO DECISION MADE TREATMENT PLAN Date Name Performer [id number],C, H is updated medication list for this problem includes: Pantoprazole 40 Mg Tablet,delayed Release (dr/ec) (Pantoprazole) ..... Take 1 tablet by mouth every day July Maradiaga MD [id number],C,w c per pt His updated medication list for this problem includes: Humalog Kwikpen Insulin 100 Unit/ml Insulin Pen (Insulin lispro) Lisinopril 5 Mg Tablet (Lisinopril) ..... Take 1 tablet by mouth once a day Aspirin 81 Mg Tablet,chewable (Aspirin) ..... Take 1 tablet once a day July Maradiaga MD [id number],C, H is updated medication list for this problem includes: Atorvastatin 20 Mg Tablet (Atorvastatin) ..... Take 1 tablet by mouth once a day July Maradiaga MD [id number],C,S till experiencing back pain and has pain with walking July Maradiaga MD [id number],C,L ast stent 04/2020. He has been chest [...] tablet once a day July Maradiaga MD [id number],C,H e checks BP everyday, runs around 111/66. [...] mouth once a day July Maradiaga MD [id number],C, H is updated medication list for this problem includes: Atorvastatin 20 Mg Tablet (Atorvastatin) ..... Take 1 tablet by mouth once a day Isis Valverde [facility] [id number],C,n ow on insulin in setting of high [...] 1 tablet once a day Isis Valverde [facility] [id number],C,c ontrolled H is updated medication list for [...] by mouth once a day Isis Valverde [facility] [id number],C,L ast stent 04/2020. He has been chest [...] 1 tablet once a day Isismarissa Valverde [facility] [id number],N,H e has immune disorder that is causing nerve disorder and weakness. He is following at [facility]. He is now recieving weekly high dose steroids at the hospital. We will plan to monitor. Given this will do f/u echo prior to next visit to monitor. O rders: 9 9214 MOD 30-39min (CPT-73446) C omplete Echo (CPT-81137) Isis Valverde [facility] [id number],C, C ontinues on Metformin, Pioglitazone and Glimepiride. Reduced intake of carbohydrates and sugars advised. A1c was 6.6 per pt. July Maradiaga MD [id number],S, C ontinues on Atorvastatin. We aim for an LDL <70. July Maradiaga MD [id number],S, H is muscles continue to be weak. He continues to have discomfort and limited mobility. July Maradiaga MD [id number],S, B lood pressure control is satisfactory. Jluy Maradiaga MD [id number],S, H e denies chest pain and SOB. Continues on aspirin and Plavix. July Maradiaga MD [id number],C,H e denies chest pain and SOB. Continues on aspirin and Plavix. July Maradiaga MD [id number],C,S /P successful back surgery. Is lifting weights to restrengthen his weakened muscles. July Maradiaga MD [id number],S, C ontinues on Omeprazole. July Maradiaga MD [id number],S, C ontinues on Metformin, Pioglitazone and Glimepiride. Reduced intake of carbohydrates and sugars advised. July Maradiaga MD [id number],S, C ontinues on Atorvastatin. We aim for an LDL <70. July Maradiaga MD [id number],S, B lood pressure control is satisfactory. July [...] July Maradiaga MD Cardiology:Following with neurologist at [facility] July Maradiaga MD Cardiology:Stable, n o angina, [...] by mouth once a day Isismarissa Valverde [facility] Cardiology:now on in [facility] in setting of high dose steroids T [...] 1 tablet once a day Isis Valverde [facility] Cardiology:controlle d H is updated [...] by mouth once a day Isismarissa Langfordcarlos [facility] Cardiology:Last sten t 04/2020. He [...] ..... Take 1 tablet once a day [place] Bernicegénesis [facility] Cardiology:He has im mune disorder that is causing nerve disorder and weakness. He is following at [facility]. He is now recieving weekly high dose steroids at the hospital. We will plan to monitor. Given this will do f/u echo prior to next visit to monitor. O rders: 9 9214 MOD 30-39min (CPT-10892) C omplete Echo (CPT-35786) Isismarissa Valverde [facility] Cardiology: C ontinues on Metformin, [...] Reduced intake of carbohydrates and sugars advised. Jluy Maradiaga MD Cardiology follow up : C ontinues on Atorvastatin. We aim for an LDL <70. July Maradiaga MD Cardiology follow up : B lood pressure control is satisfactory. July Maradiaga MD [facility] Hospital Follow up :Effort tolerance limited. [facility] Follow up :Continues on Metformin, Pioglitazone and Glimepiride. Reduced intake of carbohydrates and sugars advised. [facility] Hospital Follow up :Continues on Atorvastatin. We aim for an LDL <70. [facility] Follow up :Blood pressure control is satisfactory. [facility] Follow up :He is planned for lumbar spine surgery on June 13, 2020. He needs to have at least 30 days on DAPT with Aspirin and Plavix which would be June 10, 2020. If he needs to hold the Plavix for more than 3 days prior to the procedure, it will need to be delayed. [facility] Follow [...]
--- OUTSIDE RECORDS SUMMARY | 2024-07-07 08:41 | XMS_ITS | Encounter Summary ---
Author Organization [facility] Address [address] [place] [address] Phone Care Team Providers Care Geography Teacher Name Role Phone Stuart Howe DO Primary Care Provider July Maradiaga MD Unavailable [phone] Bandar Up DPT Unavailable [phone] Esther Garcia PT Unavailable [phone] Encounter Details Date Type Department Care Team (Late st Contact Info) Description 07/16/2022 Documentation [facility] [address] [facility] 14th [place] [address] [place] [address] Esther Garcia, PT [address] [facility] [address] [place] [address] Social History Tobacco Use Types [...] on file 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 Gender Identity Male 05/07/2021 12:04 AM CDT Sexual Orientation Straight 06/25/2022 9: 20 AM CDT documented as of this encounter Plan of Treatment Not on file documented as of this encounter Visit Diagnoses Not on filedocumented in this encounter Care Teams Geography Teacher Relationship Specialty Start Date End Date Stuart Howe DO [address] [place] [address] PCP - General Family Medicine 05/10/21 July Maradiaga MD [address] [place] [address] Consulting Physician Cardiology 03/22/22 Bandar Up DPT [address] [facility] [address] [place] [id number] Physical Therapist Physical Therapy 06/11/22 Esther Garcia PT [address] [facility] [address] [facility] [place], [place] [id number] Physical Therapist Physical Therapy 08/13/22 documented as of this encounter
--- OUTSIDE RECORDS SUMMARY | 2024-07-07 08:41 | XMS_ITS | Encounter Summary ---
Author Organization [employer] Address 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
--- OUTSIDE RECORDS SUMMARY | 2024-07-07 08:41 | XMS_ITS | Encounter Summary ---
Author Organization [employer] Address 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 Gender Identity Not on file Sexual [...] CARE TESTING Edited Performing Organization Address City/[facility] Co de Phone Number INTERFACE SYSTEM Refer to clinic/hospital department * (ABNORMAL) POC GLUCOSE (06/30/2006 8:12 PM CDT) COMMENT, GLU POC Notified RN INTERFACE SYSTEM GLUCOSE POC 286(H) 65 - 99 mg/dL INTERFACE SYSTEM 06/30/2006 8:12 PM CDT Wellington Mendoza MD POINT OF CARE TESTING Edited Performing Organization Address [facility] de Phone Number INTERFACE SYSTEM Refer to clinic/hospital department * (ABNORMAL) POC GLUCOSE (06/30/2006 5:01 PM CDT) COMMENT, GLU POC Notified RN INTERFACE SYSTEM GLUCOSE POC 227(H) 65 - 99 mg/dL INTERFACE SYSTEM 06/30/2006 5:01 PM CDT Wellington Mendoza MD POINT OF CARE TESTING Edited Performing Organization Address [facility] de Phone Number INTERFACE SYSTEM Refer to clinic/hospital department * (ABNORMAL) POC GLUCOSE (06/30/2006 11:58 AM CDT) COMMENT, GLU POC Notified RN INTERFACE SYSTEM GLUCOSE POC 180(H) 65 - 99 mg/dL INTERFACE SYSTEM 06/30/2006 11:5 8 AM CDT us Wellington Mendoza MD POINT OF CARE TESTING Edited Performing Organization Address City/[facility] Co de Phone Number INTERFACE SYSTEM Refer to clinic/hospital department * (ABNORMAL) POC GLUCOSE (06/30/2006 9:10 AM CDT) GLUCOSE POC 165(H) 65 - 99 mg/dL INTERFACE SYSTEM 06/30/2006 9:10 AM CDT us Wellington Mendoza MD POINT OF CARE TESTING Edited Performing Organization Address [facility] de Phone Number INTERFACE SYSTEM Refer to clinic/hospital department * (ABNORMAL) POC GLUCOSE (06/30/2006 5:56 AM CDT) GLUCOSE POC 138(H) 65 - 99 mg/dL INTERFACE SYSTEM 06/30/2006 5:56 AM CDT us Wellington Mendoza MD POINT OF CARE TESTING Edited Performing Organization Address [facility] de Phone Number INTERFACE SYSTEM [...] and non- Americans is available on the [facility] Intranet at: [email or web address] Select: Lab Policies and Procedures Select: Reference Ranges - GFR 06/27/2006 11:1 7 AM CDT us Wellington Mendoza MD CHEMISTRY ORDERABLES Edited Performing Organization Address [facility] de Phone Number INTERFACE SYSTEM [...] Primary documented in this encounter Care Teams Soil Science Teacher Relationship Specialty Start Date End Date Ehsan Campos MD [address] [place] [id number] PCP - General 01/14/03 documented as of this encounter
--- OUTSIDE RECORDS SUMMARY | 2024-07-07 08:41 | XMS_ITS | Encounter Summary ---
Author Organization [facility] Address 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
--- OUTSIDE RECORDS SUMMARY | 2024-07-07 08:41 | XMS_ITS | Encounter Summary ---
Author Organization [employer] Address 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
--- OUTSIDE RECORDS SUMMARY | 2024-07-07 08:41 | XMS_ITS | Referral Summary ---
[facility] Address [address] [place] [address] Care Team Providers Care Electric Power Line Repairer Name Role Phone Stuart Howe DO Primary Care Provider July Maradiaga MD Unavailable [phone] Bandar Up DPT Unavailable [phone] Esther Garcia PT Unavailable [phone] Encounters Date Type Department Care Team Description 07/05/2024 10:30 AM CDT Telemedicine [facility] Pain Management [address] [place] [address] Collin Cardona, PhD Other chronic pain (Primary Dx); Intractable neuropathic pain of lower extremity; No diagnosis on Byron I 07/01/2024 10:21 AM CDT - 07/01/2024 11:59 PM CDT Hospital Encounter Pain Management Center at [facility] [address] [place] [address] Micheal Blanco MD PhD Intractable neuropathic pain of lower extremity - Bilateral (Primary Dx); 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 Discharge Disposition: Discharge to home or self care 06/30/2024 Telephone Pain Management Center at [address], [address] [place] [address] Micheal Blanco MD PhD [facility] Orders 06/24/2024 Telephone Pain Management Center at [address], [address] [place] [address] Micheal Blanco MD PhD 06/17/2024 Telephone [facility] Management [facility] at [address], [address] [place] [address] Micheal Blanco MD PhD PRE[employer] CALL 06/17/2024 12:57 PM CDT - 06/17/2024 11:59 PM CDT Hospital Encounter Pain Management Center at [address], [address] [place] [address] Micheal Blanco MD PhD Intractable neuropathic pain of lower extremity (Primary Dx); Mononeuropathy multiplex syndrome; Chronic low back pain, unspecified back pain laterality, unspecified whether sciatica present; Chronic painful diabetic neuropathy (HCC) Discharge Disposition: Discharge to home or self care 05/14/2024 Telephone Pain Management Center at [address], [address] [place] [address] Delia Washington RN PMC Intake Assessment 05/13/2024 1:30 PM CDT Office Visit [facility] Neuro Muscle [address] Medicine 6th [place] [address] [place] [address] Wellington Alva MD PhD Peripheral nerve injury (Primary Dx); Mononeuropathy multiplex syndrome; Spinal stenosis of lumbar region, unspecified whether neurogenic claudication present; Chronic low back pain, unspecified back pain laterality, unspecified whether sciatica present 05/10/2024 Orders Only [facility] Endocrinology Metabolism and Lipid [address] Medicine 13th [place] [address] [place] [address] Jazzy Alvarado, Wilson Type 2 diabetes mellitus with hyperglycemia, without long-term current use of insulin ([facility]) 05/03/2024 11:00 AM CDT Office Visit [facility] Endocrinology Metabolism and Lipid [address] [facility] 13th [place] [address] [place] [address] Gladys Box MD Type 2 diabetes mellitus with hyperglycemia, without long-term current use of insulin ([facility]) (Primary Dx); Steroid-induced hyperglycemia; Type 2 diabetes mellitus with hyperglycemia, with long-term current use of insulin ([facility]) from Last 3 Months Allergies No [...] hyperglycemia, with long-term current use of insulin ([facility]) Inject 24 Units under the skin [...] (03/22/2022): Added automatically from request for surgery [id number] Essential (primary) hypertension 04/19/2020 Chronic back pain 04/19/2020 Hyperlipemia 05/11/2014 Sleep apnea 05/11/2014 Spinal stenosis 05/11/2014 Atherosclerotic heart diseas e of [place] coronary artery without angina pectoris 2013 Overview (04/18/2022): Coronary arteriosclerosis in marshall artery Type 2 diabetes mellitus wit h [...] on file 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 Medical Devices Implanted Type Area Food Service Counter Clerk Device Identifier Shelf Expiration Date Model / Serial / Lot Stent Implanted:Qty: 3 Stent N/A: Heart [employer] Advance 3-4mm 50mm Allograft Graft Nerve Sterile [id number] - [id number] - [id number] Implanted:Qty: 1 on 03/29/2022 by Jacquie Sol MD at [facility] Left: Leg [employer] Inc 05/24/2024 [id number] / [id number] / [id number] Lorena [employer] Weck Horizon Ligate Triangulate Cross Section Wire Small Wide Latex Free [id number] - [id number] Implanted:Qty: 2 on 03/29/2022 by Jacquie Sol MD at [facility] Left: Leg [employer] 09/28/2026 [id number] / / Procedures Procedure Name Priority Date/Time Associated Diagnosis Comments POCT HEMOGLOBIN A1C Routine 05/03/2024 1 0:52 AM CDT Type 2 diabetes mellitus with hyperglycemia, without long-term current use of insulin (HCC) POCT GLUCOSE [id number] Routine 05/03/2024 10 :47 AM CDT Type 2 diabetes mellitus with hyperglycemia, without long-term current use of insulin (HCC) COMPREHENSIVE METABOLIC PANEL Routine 04/28/2023 10:22 AM MORTAR MIXER Type 2 diabetes mellitus with hyperglycemia, with long-term current use of insulin (HCC) LIPID PANEL Routine 04/28/2023 10:22 AM MORTAR MIXER Type 2 diabetes mellitus with hyperglycemia, with long-term current use of insulin (HCC) ALBUMIN CREATININE RATIO, URINE Routine 04/28/2023 10:22 AM MORTAR MIXER Type 2 diabetes mellitus with hyperglycemia, with [...] Albumin Creatinine Ratio, Urine (04/28/2023 10:22 AM MORTAR MIXER) Microalb, Ur 13.1 0.0 - 22.9 mg/L [facility] Random Urine Creatinine 254.3 mg/dL [facility] Microalb/Creat Ratio 5.2 0.0 - 29.9 mg/g [facility] Urine 04/28/2023 10:2 2 AM MORTAR MIXER 04/28/2023 11:23 AM MORTAR MIXER us Gladys Box MD LAB URINE ORDERABLES Final Re sult [facility] * (ABNORMAL) Lipid panel (04/28/2023 10:22 AM MORTAR MIXER) Triglycerides 165(H) <150 mg/dL [facility] [...] are elevated. Blood 04/28/2023 10:2 2 AM MORTAR MIXER 04/28/2023 11:23 AM MORTAR MIXER Narrative [facility] - 04/28/2023 1:22 PM MORTAR MIXER Current interpretive data was last updated January 26, 2021. For adults ages 40-79, the ACC/AHA recommends discussing your 10-year atherosclerotic cardiovascular disease risk with your health care provider. [email or web address] Gladys Box MD LAB BLOOD ORDERABLES Final Re sult [facility] * (ABNORMAL) Comprehensive metabolic panel (04/28/2023 10:22 AM MORTAR MIXER) Total Protein 7.2 6.1 - 8.4 g/dL [...] [facility] Blood 04/28/2023 10:2 2 AM MORTAR MIXER 04/28/2023 11:23 AM MORTAR MIXER Gladys Box MD LAB BLOOD ORDERABLES Final Re sult [facility] Organization Address City/State/ZIP Co de Phone Number [facility] from Last 3 Months or Most Recently Relevant to Health Maintenance Insurance MEDICARE [facility] MEDICARE [facility] MEDICARE [facility] Advance Directives For more information, please contact: [phone] * Full Code (Latest Code Status on File) Date Activated Date Inactivated Comments 04/15/2022 4:03 PM 04/18/2022 9:50 PM * Full Code Date Activated Date Inactivated Comments 03/29/2022 4:51 PM 03/30/2022 7:50 PM Care Teams Electric Power Line Repairer Relationship Specialty Start Date End Date Stuart Howe DO [address] [place] [address] PCP - General Family Medicine 05/10/21 July Maradiaga MD [address] [place] [address] Consulting Physician Cardiology 03/22/22 Bandar Up DPT [address] [facility] [address] [id number] Physical Therapist Physical Therapy 06/11/22 Esther Garcia, PT [address] [facility] [address] [address] Physical Therapist Physical Therapy 08/13/22
--- OUTSIDE RECORDS SUMMARY | 2024-07-07 08:41 | XMS_ITS | Clinical Summary ---
Author Organization [facility] Address [address] [address] Phone Care Team Providers Care Fisheries Director Name Role Phone Ehsan Campos MD Primary Care Provider [phone] Madhav Hodges DO Unavailable [phone] Allergies No known active allergies Medications [...] complete this topic Insurance MEDICARE Care Teams Fisheries Director Relationship Specialty Start Date End Date Ehsan Campos MD [address] [place] [address] PCP - General Family Medicine 10/06/15 Madhav Hodges DO [address] [place] [address] Gastroenterology 10/24/15
--- OUTSIDE RECORDS SUMMARY | 2024-07-07 08:41 | XMS_ITS | Continuity of Care Document ---
Author Organization [facility] Address [address] [place] [address] Phone Care Team Providers Care Email Manager Name Role Phone Makeda Haynes Unavailable Unavailable Procedures Procedure Date Eye Exam & Treatment Refraction Eye Exam & Treatment Refraction Eye Exam & Treatment Refraction Advance Directives Directive Yes / No Effective Date File Name No Information Encounters Encounter Description Practice Location Reason(s) For Visit Diagnoses Date Provider Providers Copied on Encounter [facility], [address] [place] [address] [address], [place], [place], [id number], tel:[phone] [facility] No Information June-0 4-201 0 Ivy Ashford. [address], [place], [place], [facility], [place]. tel:[phone] [facility], [address] [place] [address] [address], [place], [place], [id number], tel:[phone] [facility] No Information June-0 1-200 9 Ivy Ashford. [address] , [address], [place], [address], [place]. tel:[phone] [facility], [address] [place] [address] [address], [place], [place], [id number], tel:[phone] [facility] No Information Apr- 4-200 8 Ivy Ashford. [address] , [address], [place], [address], [place]. tel:[phone] Family History Family Member Type Diagnosis Age [...]
--- OUTSIDE RECORDS SUMMARY | 2024-07-07 08:41 | XMS_ITS | Clinical Summary ---
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 Gender Identity Not on file Sexual [...] 11/29/2018, 05/10/2014 Medical Devices Implanted Type Area Career Guidance Technician Device Identifier Shelf Expiration Date Model / Serial / Lot Rick Xpdm Crv W/Line 75mm 1797-71-075 - [id number] Implanted:Qty : 2 on 05/10/2014 by Alban Boyd MD at [facility] Rick N/A: Spine Lumbar [employer] 5 / / Description:Load 312 April 24 Screw Set Inner 1797-22-000 - [id number] Implanted:Qty : 6 on 05/10/2014 by Alban Boyd MD at [facility] Screw [employer]&J[employer] 0 / / Description:Load 39 2014 Screw Xpdm Fa 6.0x45mm 17999-645 - [id number] Implanted:Qty : 1 on 05/10/2014 by Alban Boyd MD at [facility] Screw [employer]J- [employer] 5 / / Description:Load 39 April 25, 2014 Screw Xpdm Fa 7.0x45mm 17999-745 - [id number] Implanted:Qty : 5 on 05/10/2014 by Alban Boyd MD at [facility] Screw [employer]- [employer] 5 / / Description:Load 39 2014 Sealant Floseal W/ Adptr 10ml [id number] - [id number] Implanted:Qty : 1 on 05/10/2014 by Alban Boyd MD at [facility] Sealant N/A: Back Intelligent Fingerprinting- SuperDerivatives 07/24/2015 [id number] / / [id number] Sealant Floseal W/ Adptr 10ml [id number] - [id number] Implanted:Qty : 1 on 09/04/2015 by Aixa Tamayo MD at [facility] Sealant N/A: Spine Lumbar MEREDITH- BIOSCIENCE 12/24/2016 [id number] / / [id number] Cross Cnnctr Xpdm Sfx 5.5 Ti [id number] - [id number] Implanted:Qty : 1 on 05/10/2014 by Alban Boyd MD at [facility] Spine N/A: Spine Lumbar J&J- [employer] 6 / / Description:Load 311 April Explanted Type Area Career Guidance Technician Device Identifier Shelf Expiration Date Model / Serial / Lot Screw Xpdm Fa 7.0x45mm 1797-99-745 - [id number] Implanted:Alban Morillo MD (Quantity not on file) Explanted:Qty: 1 on 05/10/2014 at [facility] Screw J&J- [employer]INE [employer] [id number] / / Description:Load 39 April 25, 2014 Procedures Procedure Name Priority Date/Time Associated Diagnosis Comments HEMOGLOBIN A1C Add on 05/10/2014 5:32 PM CDT from Last 3 Months or Most Recently Relevant to Health Maintenance Results * (ABNORMAL) HEMOGLOBIN A1C (05/10/2014 5:32 PM CDT) HEMOGLOBIN A1C 6.6(H) 4.1 - 6.1 % of Hgb [facility] EST. AVG GLUCOSE, A1C 143 mg/dL [facility] Comment:Based on the ADAG st udy equation. Blood 05/10/2014 5:32 PM CDT 05/12/2014 6:49 PM CDT Narrative [facility] - 05/12/2014 6:50 PM CDT If not available from last three months us Chang Kidd MD CHEMISTRY ORDERABLES Final Resul t [facility]# [id number] [address] [place] [address] from Last 3 Months or Most Recently Relevant to Health Maintenance Insurance MEDICARE PART [facility] B [facility] Advance Directives For more information, please contact: [phone] * Full Code (Latest Code Status on [...] 9:40 AM 05/10/2014 10:26 AM Care Teams Cleaning Staff Supervisor Relationship Specialty Start Date End Date Ehsan Campos MD [address] [place], [facility] PCP - General 01/14/03
--- OUTSIDE RECORDS SUMMARY | 2024-07-07 08:41 | XMS_ITS | Encounter Summary ---
Author Organization [employer] Address [address] [place] [address] Care Team Providers Care Ethanol Quality Leader Name Role Phone Ehsan Campos MD Primary Care Provider [phone] Encounter Details Date Type Department Care Team (Late st Contact Info) Description 06/29/1999 Outpatient Historical [facility] Wilmer Barba MD [address] [place] [address] Dyspepsia and other specified disorders of function of stomach (Primary Dx) Social History Tobacco Use Types Packs/Day Years Used Date Smoking Tobacco: Never Assessed Sex and Gender Information Value Date Recorded Sex Assigned at Not on file 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
== END 2024-07-07 08:33 | disposition home or self-care (01) ==
PROVIDERS: PCP Nurse Practitioner Family; Visit Provider Podiatrist Foot & Ankle Surgery
DX: I73.9 Peripheral vascular disease, unspecified (principal)
CPT/HCPCS: 93923

== ENCOUNTER 2024-08-04 09:13 | Outpatient (CLI) | payer MEDICARE, OTHER, SELFPAY ==
--- NOTE | ~2024-08-04 | XR_ITS ---
MODIFIED ESOPHAGRAM HISTORY: Pneumonitis due to aspiration TECHNIQUE: Modified barium esophagram was performed on 08/04/2024. I administered fluoroscopy and perf ormed the exam with speech pathologist. Patient was seated for lateral fluoroscopic imaging for eligio stion of thin liquids, pudding, solids and quantified amounts, followed by thin liquids in uncontroll ed amounts. This was recorded on tape. A single fluoroscopic spot image was also recorded. The DAP fo r this procedure was 1.785 Gycm2. The amount of fluoroscopy time used during this procedure was 3.3 m inutes. FINDINGS: Oral stage: Adequate function. Pharyngeal stage: Reduced laryngeal elevation and tongue base retraction. Moderate residue in the sandie lecula and piriform sinus during part to cricopharyngeal dysfunction. There is laryngeal penetration with thin liquids without evident aspiration. Cervical/esophageal stage: Adequate function. IMPRESSION: Pharyngeal dysphagia with laryngeal penetration without aspiration. Please correlate wit h speech pathologist findings and specific feeding recommendations. Reviewed, dictated and finalized at location A. IMPRESSION: Pharyngeal dysphagia with laryngeal penetration without aspiration. Please correlate with speech pathologist findings and specific feeding recomm endations.
--- OUTSIDE RECORDS SUMMARY | 2024-08-04 10:06 | XMS_ITS | Encounter Summary ---
Author Organization [employer] Address [address] [place] [address] Care Team Providers Care System Architect Name Role Phone Ehsan Campos MD Primary Care Provider [phone] Encounter Details Date Type Department Care Team (Late st Contact Info) Description 06/29/1999 Outpatient Historical [facility] Wilmer Barba MD [address] [place] [address] Dyspepsia and other specified disorders of function of stomach (Primary Dx) Social History Tobacco Use Types Packs/Day Years Used Date Smoking Tobacco: Never Assessed Sex and Gender Information Value Date Recorded Sex Assigned at Not on file 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
--- OUTSIDE RECORDS SUMMARY | 2024-08-04 10:06 | XMS_ITS | Encounter Summary ---
Author Organization [employer] Address 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 Gender Identity Not on file Sexual Orientation [...] INTERFACE SYSTEM 06/10/2006 1:47 PM CDT Result [facility] Wellington Mendoza MD HEMATOLOGY ORDERABLES Edited Performing Organization Address [facility] Phone Number INTERFACE SYSTEM Refer to clinic/hospital department * TOTAL PROTEIN, CSF (06/10/2006 1:47 PM CDT) PROTEIN, CSF 43 15 - 45 mg/dL INTERFACE SYSTEM 06/10/2006 1:47 PM CDT Wellington Mendoza MD BODY FLUIDS AND STOOLS Edited Performing Organization Address [facility] Phone Number INTERFACE SYSTEM Refer to clinic/hospital department * (ABNORMAL) GLUCOSE, CSF (06/10/2006 1:47 PM CDT) GLUCOSE, CSF 75(H) 40 - 70 mg/dL INTERFACE SYSTEM 06/10/2006 1:47 PM CDT Wellington Mendoza MD BODY FLUIDS AND STOOLS Edited Performing Organization Address [facility] INTERFACE SYSTEM Refer to clinic/hospital department * [...] FLUIDS AND STOOLS Edited Performing Organization Address [facility] Phone Number INTERFACE SYSTEM Refer to clinic/hospital [...] available on the [facility] Intranet at: [email or web address] Select: Lab Policies and Procedures Select: Reference Ranges - GFR 06/10/2006 10:3 5 AM CDT us Wellington Mendoza MD CHEMISTRY ORDERABLES Edited Performing Organization Address City/[facility]/ZIP Co de Phone Number INTERFACE SYSTEM Refer to clinic/hospital department * HEMOGLOBIN AND HEMATOCRIT (06/10/2006 10:35 AM CDT) HEMOGLOBIN 14.5 13.6 - 16.5 g/dL INTERFACE SYSTEM HEMATOCRIT 42.3 40.0 - 48.0 % INTERFACE SYSTEM 06/10/2006 10:3 5 AM CDT us Wellington Mendoza MD HEMATOLOGY ORDERABLES Edited Performing Organization Address [facility]/State/ZIP Co de Phone Number INTERFACE SYSTEM Refer to clinic/hospital department documented in this encounter Visit Diagnoses Diagnosis Cervicalgia- Primary documented in this encounter Care Teams Recyclable Materials Distributor Relationship Specialty Start Date End Date Ehsan Campos MD [address] [place] [address] PCP - General 01/14/03 documented as of this encounter
--- OUTSIDE RECORDS SUMMARY | 2024-08-04 10:06 | XMS_ITS | Encounter Summary ---
Author Organization [employer] Address 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
--- OUTSIDE RECORDS SUMMARY | 2024-08-04 10:06 | XMS_ITS | Continuity of Care Document ---
Author Organization [facility] Address [address] [place] [address] Phone Care Team Providers Care Sack Sewer Machine Name Role Phone Makeda Haynes Unavailable Unavailable Procedures Procedure Date Eye Exam & Treatment Refraction Eye Exam & Treatment Refraction Eye Exam & Treatment Refraction Advance Directives Directive Yes / No Effective Date File Name No Information Encounters Encounter Description Practice Location Reason(s) For Visit Diagnoses Date Provider Providers Copied on Encounter [facility], [address] [place] [address] [address], [place], [place], [id number], tel:[phone] [facility] No Information June-0 4-201 0 Ivy Ashford. [address] , [address], [place], [place], [facility], [place]. tel:[phone] [facility], [address] [place] [address] [address], [place], [place], [id number], tel:[phone] [facility] No Information June-0 1-200 9 Ivy Del Angel [address] , [address], [place], [address], [place]. tel:[phone] [facility], [id number] [place] [address] [address], [place], [place], [id number], tel:[phone] [facility] No Information Apr- 4-200 8 Ivy Ashford. [address] , [address], [place], [address], [place]. tel:[phone] Family History Family Member Type Diagnosis Age At Onset No Information Payers Payer name Insurance type Covered republican ID Authoriza tion(s) No Information Social History [...]
--- OUTSIDE RECORDS SUMMARY | 2024-08-04 10:06 | XMS_ITS | Encounter Summary ---
Author Organization [employer] Address 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
--- OUTSIDE RECORDS SUMMARY | 2024-08-04 10:06 | XMS_ITS | Clinical Summary ---
Author Organization [facility] Address [address] [address] Phone Care Team Providers Care Publications Production Supervisor Name Role Phone Ehsan Campos MD Primary Care Provider [phone] Madhav Hodges DO Unavailable [phone] Allergies No known active allergies Medications [...] 1:00 PM CDT Height 174 cm (5' 8.5) 10/03/2015 1:00 PM CDT Body Mass Index [...] Immunization ( - 2023-25 season) 2023 Colonoscopy Discontinued 10/10/2015 Colorectal Cancer Screening Discontinued Retired - Colonoscopy High Risk Discontinued 6 Cologuard Discontinued Hepatitis B Immunization Aged Out No longer eligible based on patient's age to complete this topic Immunochemical Fecal Occult Blood Discontinued Meningococcal Immunization (ACWY) Aged Out No longer eligible based on patient's age to complete this topic Rotavirus Immunization Aged Out No lo nger eligible based on patient's age to complete this topic Insurance MEDICARE Care Teams Publications Production Supervisor Relationship Specialty Start Date End Date Ehsan Campos MD [address] [place] [address] PCP - General Family Medicine 10/06/15 Madhav Hodges DO [address] [place] [address] Gastroenterology 10/24/15
--- OUTSIDE RECORDS SUMMARY | 2024-08-04 10:06 | XMS_ITS | Encounter Summary ---
Author Organization [facility] Address [address] [place] [address] Phone Care Team Providers Care Behaviorist Name Role Phone Stuart Howe DO Primary Care Provider July Maradiaga MD Unavailable [phone] Bandar Up DPT Unavailable [phone] Esther Garcia PT Unavailable [phone] Encounter Details Date Type Department Care Team (Late st Contact Info) Description 07/16/2022 Documentation [facility] Therapy [facility] [address] [facility] Advanced Medicine 14th [place] [address] [place] [address] Esther Garcia, PT [address] [facility] [address] [place] [address] Social History Tobacco Use Types [...] on file 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 Gender Identity Male 05/07/2021 12:04 AM CDT Sexual Orientation Straight 06/25/2022 9: 20 AM CDT documented as of this encounter Plan of Treatment Not on file documented as of this encounter Visit Diagnoses Not on filedocumented in this encounter Care Teams Behaviorist Relationship Specialty Start Date End Date Stuart Howe DO [address] [place] [address] PCP - General Family Medicine 05/10/21 July Maradiaga MD [address] [place] [address] Consulting Physician Cardiology 03/22/22 Bandar Up DPT [address] [facility] [address] [place] [id number] Physical Therapist Physical Therapy 06/11/22 Esther Garcia PT [address] [facility] [address] [facility] [place], [place] [id number] Physical Therapist Physical Therapy 08/13/22 documented as of this encounter
--- OUTSIDE RECORDS SUMMARY | 2024-08-04 10:06 | XMS_ITS | Encounter Summary ---
Author Organization [employer] Address 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 Gender Identity Not on file Sexual [...] OF CARE TESTING Edited Performing Organization Address City/[facility] Co de Phone Number INTERFACE SYSTEM Refer to clinic/hospital department * (ABNORMAL) POC GLUCOSE (06/30/2006 8:12 PM CDT) COMMENT, GLU POC Notified RN INTERFACE SYSTEM GLUCOSE POC 286(H) 65 - 99 mg/dL INTERFACE SYSTEM 06/30/2006 8:12 PM CDT Wellington Mendoza MD POINT OF CARE TESTING Edited Performing Organization Address [facility] de Phone Number INTERFACE SYSTEM Refer to clinic/hospital department * (ABNORMAL) POC GLUCOSE (06/30/2006 5:01 PM CDT) COMMENT, GLU POC Notified RN INTERFACE SYSTEM GLUCOSE POC 227(H) 65 - 99 mg/dL INTERFACE SYSTEM 06/30/2006 5:01 PM CDT Wellington Mendoza MD POINT OF CARE TESTING Edited Performing Organization Address [facility] de Phone Number INTERFACE SYSTEM Refer to clinic/hospital department * (ABNORMAL) POC GLUCOSE (06/30/2006 11:58 AM CDT) COMMENT, GLU POC Notified RN INTERFACE SYSTEM GLUCOSE POC 180(H) 65 - 99 mg/dL INTERFACE SYSTEM 06/30/2006 11:5 8 AM CDT us Wellington Mendoza MD POINT OF CARE TESTING Edited Performing Organization Address City/[facility] Co de Phone Number INTERFACE SYSTEM Refer to clinic/hospital department * (ABNORMAL) POC GLUCOSE (06/30/2006 9:10 AM CDT) GLUCOSE POC 165(H) 65 - 99 mg/dL INTERFACE SYSTEM 06/30/2006 9:10 AM CDT us Wellington Mendoza MD POINT OF CARE TESTING Edited Performing Organization Address [facility] de Phone Number INTERFACE SYSTEM Refer to clinic/hospital department * (ABNORMAL) POC GLUCOSE (06/30/2006 5:56 AM CDT) GLUCOSE POC 138(H) 65 - 99 mg/dL INTERFACE SYSTEM 06/30/2006 5:56 AM CDT us Wellington Mendoza MD POINT OF CARE TESTING Edited Performing Organization Address [facility] de Phone Number INTERFACE SYSTEM Refer [...] and non- Americans is available on the [facility] Intranet at: [email or web address] Select: Lab Policies and Procedures Select: Reference Ranges - GFR 06/27/2006 11:1 7 AM CDT us Wellington Mendoza MD CHEMISTRY ORDERABLES Edited Performing Organization Address [facility] de Phone Number INTERFACE SYSTEM Refer [...] Primary documented in this encounter Care Teams Field Technical Assistant Relationship Specialty Start Date End Date Ehsan Campos MD [address] [place] [address] PCP - General 01/14/03 documented as of this encounter
--- OUTSIDE RECORDS SUMMARY | 2024-08-04 10:06 | XMS_ITS | Encounter Summary ---
Author Organization [email or web address] Address 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
--- OUTSIDE RECORDS SUMMARY | 2024-08-04 10:06 | XMS_ITS | Encounter Summary ---
Author Organization [employer] Address [address] [place] [address] Care Team Providers Care Regional Hr Manager Name Role Phone Ehsan Campos MD Primary Care Provider [phone] Encounter Details Date Type Department Care Team (Late st Contact Info) Description 06/27/2006 Outpatient Historical [facility] Support [facility] (Adt Cardiology-[facility]) [address] 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
--- OUTSIDE RECORDS SUMMARY | 2024-08-04 10:06 | XMS_ITS | Encounter Summary ---
Author Organization [facility] Address 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
--- OUTSIDE RECORDS SUMMARY | 2024-08-04 10:06 | XMS_ITS | Clinical Summary ---
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 Gender Identity Not on file Sexual Orientation [...] 11:51 AM CDT Height 175.3 cm (5' 9) 08/25/2015 9:27 AM CDT Body Mass Index [...] 11/29/2018, 05/10/2014 Medical Devices Implanted Type Area Casting And Curing Operator Device Identifier Shelf Expiration Date Model / Serial / Lot Rick Xpdm Crv W/Line 75mm 1797-71-075 - [id number] Implanted:Qty : 2 on 05/10/2014 by Alban Boyd MD at [facility] Rick N/A: Spine Lumbar [employer] 5 / / Description:Load 312 April 24 Screw Set Inner 1797-22-000 - [id number] Implanted:Qty : 6 on 05/10/2014 by Alban Boyd MD at [facility] Screw [employer] 0 / / Description:Load 39 2014 Screw Xpdm Fa 6.0x45mm [id number] - [id number] Implanted:Qty : 1 on 05/10/2014 by Alban Boyd MD at [facility] Screw [employer] 5 / / Description:Load 39 April 25, 2014 Screw Xpdm Fa 7.0x45mm 17999-745 - [id number] Implanted:Qty : 5 on 05/10/2014 by Alban Boyd MD at [facility] Screw [employer] 5 / / Description:Load 39 2014 Sealant Floseal W/ Adptr 10ml [id number] - [id number] Implanted:Qty : 1 on 05/10/2014 by Alban Boyd MD at [facility] Sealant N/A: Back Smarty Ring- [employer] 07/24/2015 [id number] / / [id number] Sealant Floseal W/ Adptr 10ml [id number] - [id number] Implanted:Qty : 1 on 09/04/2015 by Aixa Tamayo MD at [facility] Sealant N/A: Spine Lumbar [employer] 12/24/2016 [id number] / / [id number] Cross Cnnctr Xpdm Sfx 5.5 Ti [id number] - [id number] Implanted:Qty : 1 on 05/10/2014 by Alban Boyd MD at [facility] Spine N/A: Spine Lumbar [employer] 6 / / Description:Load 311 April Explanted Type Area Casting And Curing Operator Device Identifier Shelf Expiration Date Model / Serial / Lot Screw Xpdm Fa 7.0x45mm [id number] - [id number] Implanted:Alban Morillo MD (Quantity not on file) Explanted:Qty: 1 on 05/10/2014 at [facility] Screw [employer] [id number] / / Description:Load 39 April 25, 2014 Procedures Procedure Name Priority Date/Time Associated Diagnosis Comments HEMOGLOBIN A1C Add on 05/10/2014 5:32 PM CDT from Last 3 Months or Most Recently Relevant to Health Maintenance Results * (ABNORMAL) HEMOGLOBIN A1C (05/10/2014 5:32 PM CDT) HEMOGLOBIN A1C 6.6(H) 4.1 - 6.1 % of Hgb [facility] [employer]lite [facility] EST. AVG GLUCOSE, A1C 143 mg/dL [facility] Comment:Based on the ADAG st udy equation. Blood 05/10/2014 5:32 PM CDT 05/12/2014 6:49 PM CDT Narrative [facility] - 05/12/2014 6:50 PM CDT If not available from last three months us Chang Kidd MD CHEMISTRY ORDERABLES Final Resul t [facility]# [id number] [address] [place] [place] [address] from Last 3 Months or Most Recently Relevant to Health Maintenance Insurance MEDICARE PART A AND B [facility] Advance Directives For more information, please contact: [phone] * Full Code (Latest Code Status on [...] 9:40 AM 05/10/2014 10:26 AM Care Teams Shrimp Pond Laborer Relationship Specialty Start Date End Date Ehsan Campos MD [address] [place], [facility] PCP - General 01/14/03
--- OUTSIDE RECORDS SUMMARY | 2024-08-04 10:06 | XMS_ITS | Clinical Summary ---
Author Organization [facility] B Address [address] [place] [address] Care Team Providers Care Certified Personal Trainer Name Role Phone Stuart Howe DO Primary Care Provider July Maradiaga MD Unavailable [phone] Bandar Up DPT Unavailable [phone] Esther [...] Active Additional Information Patient not taking.Reported on 07/29/2024 metoprolol tartrate (LOPRESSOR) 25 mg immediate release [...] (03/22/2022): Added automatically from request for surgery [id number] Essential (primary) hypertension 04/19/2020 Chronic back pain 04/19/2020 Hyperlipemia 05/11/2014 Sleep apnea 05/11/2014 Spinal stenosis 05/11/2014 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 Overview (04/18/2022): Coronary arteriosclerosis in jamul artery Type 2 diabetes mellitus wit h hyperglycemia, with long-term current use of insulin On methylprednisolone therapy IgA deficiency IgM deficiency Persistent 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 complication Encounters Date Type Department Care Team Description 07/29/2024 9:14 AM CDT - 07/29/2024 11:59 PM CDT Hospital Encounter [facility] at [address], [address] [place] [address] Micheal Blanco MD PhD Intractable neuropathic pain of lower extremity Discharge Disposition: Discharge to home or self care 07/29/2024 Telephone [facility] at [address], [address] [place] [address] Micheal Blanco MD PhD 1 day SCS trial f/u call 07/29/2024 Telephone [facility] at [address], [address] [place] [address] Micheal Blanco MD PhD POST SCS TRIAL CALL 07/28/2024 Telephone [facility] at [address], [address] [place] [address] Micheal Blanco MD PhD pre sedation call 07/16/2024 Orders Only [facility] at [address], [address] [place] [address] Micheal Blanco, PhD Intractable neuropathic pain of lower extremity (Primary Dx) 07/07/2024 Telephone [facility] at [address], [address] [place] [address] Micheal Blanco MD PhD 07/05/2024 10:30 AM CDT Telemedicine 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 Discharge Disposition: Discharge to home or self care 06/30/2024 Telephone [facility] at [address], [address] [place] [address] Micheal Blanco MD PhD Qutenza Orders 06/24/2024 Telephone [facility] at [address], [address] [place] [address] Micheal Blanco MD PhD 06/17/2024 12:57 PM CDT - 06/17/2024 11:59 PM CDT Hospital Encounter [facility] at [address], [address] [place] [address] Micheal Blanco MD PhD Intractable neuropathic pain of lower extremity (Primary Dx); Mononeuropathy multiplex syndrome; Chronic low back pain, unspecified back pain laterality, unspecified whether sciatica present; Chronic painful diabetic neuropathy (HCC) Discharge Disposition: Discharge to home or self care 06/17/2024 Telephone [facility] at [address], [address] [place] [address] iMcheal Blanco MD PhD PREQUTENZA CALL 05/14/2024 Telephone [facility] at [address], [address] [place] [address] Delia Washington RN PMC Intake Assessment 05/13/2024 1:30 PM CDT Office Visit [facility] Neuro Muscle [address] [facility] Medicine [address]th [place] [address] [place] [address] Wellington Alva MD PhD Peripheral nerve injury (Primary Dx); Mononeuropathy multiplex syndrome; Spinal stenosis of lumbar region, unspecified whether neurogenic claudication present; Chronic low back pain, unspecified back pain laterality, unspecified whether sciatica present 05/10/2024 Orders Only [facility] Endocrinology Metabolism and Lipid [address] [facility] Medicine 13th [place] [address] [place] [phone] Jazzy Alvarado, [facility] Type 2 diabetes mellitus with hyperglycemia, without long-term current use of insulin (HCC) from [...] MICRODISCECTOMY 02/24/2015 - 02/24/2016 L2-4 VASECTOMY 04/08/1977 FLUORO GUIDED ASPIRATION OR INJECTION INTERMEDIATE JOINT RIGHT 07/29/2024 Right Medical History Medical History Date Comments Hypertension [...] you have a drink containing alcohol? Never 07/29/2024 Q2: How many drinks containi ng alcohol do you have on a typical day when you are drinking? Patient does not drink Q3: How often do you have si x or more drinks on one occasion? 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 Gender Identity Male 05/07/2021 12:04 AM CDT Sexual Orientation Straight 06/25/2022 9: 20 AM CDT Obstetrics History Last Filed Vital Signs Vital Sign Reading Time Taken Comments Blood Pressure 119/62 07/29/2024 11:37 AM CDT Pulse 73 07/29/2024 11:37 AM CDT Temperature 36.3 C (97.3 F) 07/29/2024 9:17 AM CDT Respiratory Rate 16 07/29/2024 11:37 AM CDT Oxygen Saturation 98% 07/29/2024 11:37 AM CDT Inhaled Oxygen Concentration - - Weight 78 kg (172 lb) 07/29/2024 9:17 AM CDT Height 172.7 cm (5' 8) 07/29/2024 9:17 AM CDT Body Mass Index 26.15 07/29/2024 9:17 AM CDT Plan of Treatment Health Maintenance [...] 11/03/2023, Additional history exists Fall Risk Assessment 07/29/2025 07/29/2024, 07/01/2024, 06/17/2024 Abdominal Aortic Aneurysm (A AA) Screen Completed [...] home safety. Medical Devices Implanted Type Area Clay Miner Device Identifier Shelf Expiration Date Model / Serial / Lot Stent Implanted:Qty: 3 Stent N/A: Heart [employer] Advance 3-4mm 50mm Allograft Graft Nerve Sterile [id number] - [id number] - [id number] Implanted:Qty: 1 on 03/29/2022 by Jacquie Sol MD at [facility] Left: Leg [employer] Inc 05/24/2024 [id number] / [id number] / [id number] [employer] Weck Horizon Ligate Triangulate Cross Section Wire Small Wide Latex Free [id number] - [id number] Implanted:Qty: 2 on 03/29/2022 by Jacquie Sol MD at [facility] Left: Leg [employer] 09/28/2026 [id number] / / Medtronic Inc Kit Lead Neurostimulator Percutaneous Spine 1x8 Electrode Compact Vectris Surescan Titanium 60cm [id number] - [id number] Implanted:Qty: 1 on 07/29/2024 by Micheal Blanco MD PhD at [facility] 4 Med[employer]onic Inc 07/05/2028 [id number] / / [id number] Medtronic Inc Kit Lead Neurostimulator Percutaneous Spine 1x8 Electrode Compact Vectris Surescan Titanium 60cm [id number] - [id number] Implanted:Qty: 1 on 07/29/2024 by Micheal Blanco MD PhD at [facility] 4 [employer] Inc 07/05/2028 [id number] / / [id number] Procedures Procedure Name Priority Date/Time Associated Diagnosis Comments PAIN MGMT IMAGING SCS ELECTRODE PLACEMENT Schedule Routine, Read Routine (OP Routine) 07/29/2024 11:15 AM CDT Intractable neuropathic pain of lower extremity POCT HEMOGLOBIN A1C Routine 05/03/2024 1 0:52 AM CDT Type 2 diabetes mellitus with hyperglycemia, without long-term current use of insulin (HCC) COMPREHENSIVE METABOLIC PANEL Routine 04/28/2023 10:22 AM VALVE MACHINE OPERATOR Type 2 diabetes mellitus with hyperglycemia, with long-term current use of insulin (HCC) LIPID PANEL Routine 04/28/2023 10:22 AM VALVE MACHINE OPERATOR Type 2 diabetes mellitus with hyperglycemia, with long-term current use of insulin (HCC) ALBUMIN CREATININE RATIO, URINE Routine 04/28/2023 10:22 AM VALVE MACHINE OPERATOR Type 2 diabetes mellitus with hyperglycemia, with long-term current use of insulin (HCC) from Last 3 Months or Most Recently Relevant to Health Maintenance Results * Imaging SCS Electrode Placement (94370) (07/29/2024 11:15 AM CDT) Narrative [facility]_PACS[facility] - 07/29/2024 11:39 AM CDT The images from this study are not interpreted by Radiology. Please refer to the physician's procedure / OR operative note. Micheal Blanco MD PhD IMG PAIN MGMT PROCEDURES Final Result [facility] * POCT hemoglobin A1c (05/03/2024 10:52 AM CDT) Pathologist [facility] Hemoglobin A1C, POC 8.1 4.0 - 5.6 % Blood 05/03/2024 10:5 2 AM CDT Gladys Box MD POINT OF CARE TEST ORDERABLES Final Result * Albumin Creatinine Ratio, Urine (04/28/2023 10:22 AM VALVE MACHINE OPERATOR) Pathologist [facility] Microalb, Ur 13.1 0.0 - 22.9 mg/L [facility] Random Urine Creatinine 254.3 mg/dL [facility] Microalb/Creat Ratio 5.2 0.0 - 29.9 mg/g [facility] Urine 04/28/2023 10:2 2 AM VALVE MACHINE OPERATOR 04/28/2023 11:23 AM VALVE MACHINE OPERATOR Gladys Box MD LAB URINE ORDERABLES Final Re sult [facility] * (ABNORMAL) Lipid panel (04/28/2023 10:22 AM VALVE MACHINE OPERATOR) Pathologist [facility] Triglycerides 165(H) <150 mg/dL [facility] [...] calculations are under investigation, such as Isaiah M et al. YUDY Cardiol. 2020;5(5):540-548 or Walt SS et al. YUDY Cardiol. 2018;3(8):749-753. Consider the use of non-HDL-c to estimate atherosclerotic cardiovascular disease risk. The Friedewald equation is accurate in most patients when triglycerides are less than 150 mg/dL. Consider the use of non-HDL-C or Apo B to help estimate atherosclerotic cardiovascular diesase risk if triglycerides are elevated. Blood 04/28/2023 10:2 2 AM VALVE MACHINE OPERATOR 04/28/2023 11:23 AM VALVE MACHINE OPERATOR Narrative [facility] - 04/28/2023 1:22 PM VALVE MACHINE OPERATOR Current interpretive data was last updated January 26, 2021. For adults ages 40-79, the ACC/AHA recommends discussing your 10-year atherosclerotic cardiovascular disease risk with your health care provider. https://www.acc.org/ASCVDApp us Gladys Box MD LAB BLOOD ORDERABLES Final Re sult [facility] * (ABNORMAL) Comprehensive metabolic panel (04/28/2023 10:22 AM VALVE MACHINE OPERATOR) Total Protein 7.2 6.1 - [...] [facility] Blood 04/28/2023 10:2 2 AM VALVE MACHINE OPERATOR 04/28/2023 11:23 AM VALVE MACHINE OPERATOR us Gladys Box MD LAB BLOOD ORDERABLES Final Re sult [facility] from Last 3 Months or Most Recently Relevant to Health Maintenance Insurance MEDICARE [facility] MEDICARE [facility] MEDICARE [facility] [place] [id number] Advance Directives For more information, please contact: [phone] * Full Code (Latest Code Status on File) Date Activated Date Inactivated Comments 04/15/2022 4:03 PM 04/18/2022 9:50 PM * Full Code Date Activated Date Inactivated Comments 03/29/2022 4:51 PM 03/30/2022 7:50 PM Care Teams Certified Personal Trainer Relationship Specialty Start Date End Date Stuart Howe DO [address] [place] [address] PCP - General Family Medicine 05/10/21 July Maradiaga MD [address] [place] [address] Consulting Physician Cardiology 03/22/22 Bandar Up, MACKENZIE [address] [facility] [address] [address] Physical Therapist Physical Therapy 06/11/22 Esther Garcia, PT [address] [facility] [address] [facility] [place] [address] Physical Therapist Physical Therapy 08/13/22
--- OUTSIDE RECORDS SUMMARY | 2024-08-04 10:06 | XMS_ITS | CONTINUITY OF CARE DOCUMENT ---
Author Name robyn carlson Address Unknown Organization [facility] Address [address] [place] [address] Phone [phone] Care Team Providers Care Colorer Machine Name Role Phone Hiren YAP, July Unavailable [...] Maradiaga MD Immune deficiency active Isis Valverde [employer] [facility] [employer] Cardiology examination active July swenson MD ENCOUNTERS Date Type Provider Location Encounter Diag nosis - In-person encounter Office Visit July Maradiaga MD [facility] - In-person encounter Office Visit July Maradiaga MD [facility] Cardiology examination - In-person encounter Office Visit July Maradiaga MD [facility] - In-person encounter Office Visit July Maradiaga MD [facility] Preoperative cardiovascular evaluation - In-person encounter Office Visit July Maradiaga MD [facility] Immune deficiency - In-person encounter Office Visit July Maradiaga MD [facility] - In-person encounter Office Visit July Maradiaga MD [facility] - In-person encounter Office Visit July Maradiaga MD [facility] CAD - s/p NATE RCA, Ramus 03/2013, s/p BMS OM1 05/14 - In-person encounter Office Visit July Maradiaga MD [facility] Cardiology examination - In-person encounter Office Visit July Maradiaga MD [facility] CAD - s/p NATE RCA, Ramus [...] blood pressure, systolic 126 mm[Hg] Tab itha [place] oxygen saturation, oximetry 96 % Liza [place] respiratory rate E&M 12 /min Liza Horvath [...] 95 % respiratory rate E&M 16 /min Imna weight E&M 197 [lb_av] Mina y height E&M 69 [in_i] [facility] Body Mass Index (Ratio) 25.40 [...] lder height E&M 69 [in_i] Geni Lauren [facility][note 3] Body Mass Index (Ratio) 27.26 kg/m2 Ron [...] 100 unit/mL insulin pen active Isis Bernicemiglia SAMPLE MA[employer]ER [employer] fluticasone propionate 50 mcg/actuation spray,suspensio n active as needed [facility] Advair HFA 45-21 mcg/actuation HFA aerosol inhaler completed - July Maradiaga MD nortriptyline 10 mg capsule completed - [facility] folic acid 1 mg tablet active Take 1 tablet by mouth once a day [facility] albuterol sulfate 90 mcg/actuation HFA aerosol inhaler active INHALED 1 PUFF EVERY 4 HOURS NEEDED FOR SHORTNESS OF BREATH OR WHEEZING Isis Queenmicarlos [facility]ER[employer] dexamethasone 6 mg tablet completed TAKE 1 TABLET ORALLY DAILY - [facility] clopidogrel 75 mg tablet completed TAKE 1 TABLET BY MOUTH EVERY DAY - Isis Queenmiglnegrita [employer] pantoprazole 40 mg tablet,delayed release (DR/EC) active TAKE 1 TABLET BY MOUTH EVERY DAY [facility] aspirin 81 mg tablet,chewable active Take [...] mouth three times a day Isis Ventimiglia [employer] #90, 90 days supply, Prescribed by YANIRA [...] MD drug use no Isis Ventimig jaime [employer] alcohol use no Isis Ventimig jaime [employer] smoking status Never smoker Isis castro [employer] social history reviewed E&M revi ewed - [...] Management Plan continue current therapy Isis Valverde SAMPLE MAK[employer] HRA, CV Assess/Plan, Angina (inactive) Management Plan [...] Payer name Policy type / Coverage type Replaced by [facility] constitution party ID [employer] CEIN [id number] [place] MEDICARE Medicare [id number] ADVANCE DIRECTIVES Name Date DISCUSSED - NO DECISION MADE TREATMENT PLAN Date Name Performer [id number],C, H is updated medication list for this problem includes: Pantoprazole 40 Mg Tablet,delayed Release (dr/ec) (Pantoprazole) ..... Take 1 tablet by mouth every day July Maradiaga MD [id number],C,w c per pt His updated medication list for this problem includes: Humalog Kwikpen Insulin 100 Unit/ml Insulin Pen (Insulin lispro) Lisinopril 5 Mg Tablet (Lisinopril) ..... Take 1 tablet by mouth once a day Aspirin 81 Mg Tablet,chewable (Aspirin) ..... Take 1 tablet once a day July Maradiaga MD [id number],C, H is updated medication list for this problem includes: Atorvastatin 20 Mg Tablet (Atorvastatin) ..... Take 1 tablet by mouth once a day July Maradiaga MD [id number],C,S till experiencing back pain and has pain with walking July Maradiaga MD [id number],C,L ast stent 04/2020. He has been chest [...] tablet once a day July Maradiaga MD [id number],C,H e checks BP everyday, runs around 111/66. [...] mouth once a day July Maradiaga MD [id number],C, H is updated medication list for this problem includes: Atorvastatin 20 Mg Tablet (Atorvastatin) ..... Take 1 tablet by mouth once a day Isis Valverde [facility] [id number],C,n ow on insulin in setting of high [...] 1 tablet once a day Isis Valverde [facility] [id number],C,c ontrolled H is updated medication list for [...] by mouth once a day Isis Valverde [facility] [id number],C,L ast stent 04/2020. 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 He is following at [facility] [place]. He is now recieving weekly high dose steroids at the hospital. We will plan to monitor. Given this will do f/u echo prior to next visit to monitor. O rders: 9 9214 MOD 30-39min (CPT-26509) C omplete Echo (CPT-84571) Isis Valverde [facility] [id number],C, C ontinues on Metformin, Pioglitazone and Glimepiride. Reduced intake of carbohydrates and sugars advised. A1c was 6.6 per pt. July Maradiaga MD [id number],S, C ontinues on Atorvastatin. We aim for an LDL <70. July Maradiaga MD [id number],S, H is muscles continue to be weak. He continues to have discomfort and limited mobility. July Maradiaga MD [id number],S, B lood pressure control is satisfactory. July Maradiaga MD [id number],S, H e denies chest pain and SOB. Continues on aspirin and Plavix. July Maradiaga MD [id number],C,H e denies chest pain and SOB. Continues on aspirin and Plavix. July Maradiaga MD [id number],C,S /P successful back surgery. Is lifting weights to restrengthen his weakened muscles. July Maradiaga MD [id number],S, C ontinues on Omeprazole. July Maradiaga MD [id number],S, C ontinues on Metformin, Pioglitazone and Glimepiride. Reduced intake of carbohydrates and sugars advised. July Maradiaga MD [id number],S, C ontinues on Atorvastatin. We aim for an LDL <70. July Maradiaga MD [id number],S, B lood pressure control is satisfactory. July [...] July Maradiaga MD Cardiology:Following with neurologist at [facility] and [facility] July Maradiaga MD Cardiology:Stable, n [...] by mouth once a day Isismarissa Valverde [facility] Cardiology:now on in [facility] at [...] 1 tablet once a day Isis Valverde [facility] Cardiology:controlle d H is updated medication [...] by mouth once a day Isismarissa Langfordcarlos [facility] Cardiology:Last sten t 04/2020. He has [...] ..... 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 He is following at [place]. He is now recieving weekly high dose steroids at the hospital. We will plan to monitor. Given this will do f/u echo prior to next visit to monitor. O rders: 9 9214 MOD 30-39min (CPT-10725) C omplete Echo (CPT-43539) Isismarissa Valverde [facility] Cardiology: C ontinues on Metformin, Pioglitazone [...] control is satisfactory. July Maradiaga MD [facility] Hospital Follow up :Effort tolerance limited. [facility] Hospital Follow up :Continues on Metformin, Pioglitazone and Glimepiride. Reduced intake of carbohydrates and sugars advised. [facility] Hospital Follow up :Continues on Atorvastatin. We aim for an LDL <70. [facility] Hospital Follow up :Blood pressure control is satisfactory. [facility] Hospital Follow up :He is planned for lumbar spine surgery on June 13, 2020. He needs to have at least 30 days on DAPT with Aspirin and Plavix which would be June 10, 2020. If he needs to hold the Plavix for more than 3 days prior to the procedure, it will need to be delayed. [facility] Hospital Follow up :s/p recent intervention [...]
--- OUTSIDE RECORDS SUMMARY | 2024-08-04 10:06 | XMS_ITS | Encounter Summary ---
Author Organization [facility] Address [address] [place] [address] Phone Care Team Providers Care Flight Tower Dispatcher Name Role Phone Stuart Howe DO Primary Care Provider July Maradiaga MD Unavailable [phone] Bandar Up DPT Unavailable [phone] Esther Garcia PT Unavailable [phone] Encounter Details Date Type Department Care Team (Late st Contact Info) Description 02/01/2022 Telephone [facility] Scheduling [address] [place] [address] Galilea Esteban CMA Social History Tobacco Use Types Packs/Day Years Used Date Smoking Tobacco: Former Cigarettes Q uit: 02/25/1964 Alcohol Use Standard Drinks/Week Comments No 0 (1 standard drink = 0.6 oz pur e alcohol) Sex and Gender Information Value Date Recorded Sex Assigned at Not on file Legal Sex Male 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 Gender Identity Male 05/07/2021 12:04 AM CDT Sexual Orientation Straight 06/25/2022 9: 20 AM CDT documented as of this encounter Plan of Treatment Not on file documented as of this encounter Visit Diagnoses Not on filedocumented in this encounter Care Teams Flight Tower Dispatcher Relationship Specialty Start Date End Date Stuart Howe DO [address] [place] [address] PCP - General Family Medicine 05/10/21 July Maradiaga MD [address] [place] [address] Consulting Physician Cardiology 03/22/22 Bandar pU, RADHAT [address] [facility] [place] [address] [address] Physical Therapist Physical Therapy 06/11/22 Esther Garcia, PT [address] [facility] [place] [address] [address] Physical Therapist Physical Therapy 08/13/22 documented as of this encounter
--- OUTSIDE RECORDS SUMMARY | 2024-08-04 10:06 | XMS_ITS | Referral Summary ---
Author Organization [facility] B Address [address] [place] [address] Care Team Providers Care Casino Games Dealer Name Role Phone Stuart Howe DO Primary Care Provider July Maradiaga MD Unavailable [phone] Bandar Up DPT Unavailable [phone] Esther Garcia PT Unavailable [phone] Encounters Date Type Department Care Team Description 07/29/2024 Telephone [facility] at [address], [address] [place] [address] Micheal Blanco MD PhD 1 day SCS trial f/u call 07/29/2024 Telephone [facility] at [address], [address] [place] [address] Micheal Blanco MD PhD POST SCS TRIAL CALL 07/29/2024 9:14 AM CDT - 07/29/2024 11:59 PM CDT Hospital Encounter [facility] at [address], [address] [place] [address] Micheal Blanco MD PhD Intractable neuropathic pain of lower extremity Discharge Disposition: Discharge to home or self care 07/28/2024 Telephone [facility] at [address], [address] [place], [place] [address] Micheal Blanco MD PhD pre sedation call 07/16/2024 Orders Only [facility] at [address], [address] [place] [address] Micheal Blanco, PhD Intractable neuropathic pain of lower extremity (Primary Dx) 07/07/2024 Telephone [facility] at [address], [address] [place] [address] Micheal Blanco MD PhD 07/05/2024 10:30 AM CDT Telemedicine [facility] Pain Management [address] [place] [phone] Collin Cardona, PhD Other chronic pain (Primary Dx); Intractable neuropathic pain of lower extremity; No diagnosis on [place] I 07/01/2024 10:21 AM CDT - 07/01/2024 11:59 PM CDT Hospital Encounter [facility] at [address], [address] [place] [address] Micheal Blanco MD PhD Intractable neuropathic pain of lower extremity - Bilateral (Primary Dx); 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 Discharge Disposition: Discharge to home or self care 06/30/2024 Telephone [facility] at [address], [address] [place] [address] Micheal Blanco MD PhD Qutenza Orders 06/24/2024 Telephone [facility] at [address], [address] [place] [address] Micheal Blanco MD PhD 06/17/2024 Telephone [facility] at [address], [address] [place] [address] Micheal Blanco MD PhD PREQUTENZA CALL 06/17/2024 12:57 PM CDT - 06/17/2024 11:59 PM CDT Hospital Encounter [facility] at [address], [address] [place] [address] Micheal Blanco MD PhD Intractable neuropathic pain of lower extremity (Primary Dx); Mononeuropathy multiplex syndrome; Chronic low back pain, unspecified back pain laterality, unspecified whether sciatica present; Chronic painful diabetic neuropathy (HCC) Discharge Disposition: Discharge to home or self care 05/14/2024 Telephone [facility] at [address], [address] [place] [address] Delia Washington RN PMC Intake Assessment 05/13/2024 1:30 PM CDT Office Visit [facility] Neuro Muscle [address] [facility] 6th Floor [address] [place] [phone] Wellington Alva MD PhD Peripheral nerve injury (Primary Dx); Mononeuropathy multiplex syndrome; Spinal stenosis of lumbar region, unspecified whether neurogenic claudication present; Chronic low back pain, unspecified back pain laterality, unspecified whether sciatica present 05/10/2024 Orders Only [facility] Endocrinology Metabolism and Lipid [address] [facility] Medicine 13th [place] [address] [place] [address] Jazzy Alvarado RMA Type 2 diabetes mellitus [...] tablet (20 mg total) by mouth nightly Active clobetasoL (TEMOVATE) 0.05 % cream APPLY TOPICALLY TWICE A DAY NEEDED FOR ITCHING FOR 2 WEEK 5 Active Active Problems Problem Noted Date Diagnosed Date Chronic painful diabetic neuropathy 06/24/2024 Intractable neuropathic pain of lower extremity 06/17/2024 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 Hip pain 04/18/2022 Moderate malnutrition 04/16/2022 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 Overview (03/22/2022): Added automatically from request for surgery [id number] Essential (primary) hypertension 04/19/2020 Chronic back pain 04/19/2020 Hyperlipemia 05/11/2014 Sleep apnea 05/11/2014 Spinal stenosis 05/11/2014 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 Author CCM Chronic Pain Care Plan Chronic Care Management Eloisa Pardo, ESCOBAR Note: Problem: Chronic Pain Goals: 1. [...] on stairs Contact your local community or [facility] for information on exercise, fall prevention programs, or options for improving home safety. Medical Devices Implanted Type Area Shoe Polisher Device Identifier Shelf Expiration Date Model / Serial / Lot Stent Implanted:Qty: 3 Stent N/A: Heart Axogen Inc Advance 3-4mm 50mm Allograft Graft Nerve Sterile [id number] - [id number] - [id number] Implanted:Qty: 1 on 03/29/2022 by Jacquie Sol MD at [facility] Left: Leg Axogen Inc 05/24/2024 [id number] / [id number] / [id number] Teleflex Medical [employer] Weck Horizon Ligate Triangulate Cross Section Wire Small Wide Latex Free [id number] - [id number] Implanted:Qty: 2 on 03/29/2022 by Jacquie Sol MD at [facility] Left: Leg Teleflex Medical Inc 09/28/2026 [id number] / / Medtronic Inc Kit Lead Neurostimulator Percutaneous Spine 1x8 Electrode Compact Vectris Surescan Titanium 60cm [id number] - [id number] Implanted:Qty: 1 on 07/29/2024 by Micheal Blanco MD PhD at [facility] 4 Medtronic Inc 07/05/2028 [id number] / / [id number] Medtronic Inc Kit Lead Neurostimulator Percutaneous Spine 1x8 Electrode Compact Vectris Surescan Titanium 60cm [id number] - [id number] Implanted:Qty: 1 on 07/29/2024 by Micheal Blanco MD PhD at [facility] 4 Medtronic Inc 07/05/2028 [id number] / / [id number] Procedures Procedure Name Priority Date/Time Associated Diagnosis Comments PAIN MGMT IMAGING SCS ELECTRODE PLACEMENT Schedule Routine, Read Routine (OP Routine) 07/29/2024 11:15 AM CDT Intractable neuropathic pain of lower extremity POCT HEMOGLOBIN A1C Routine 05/03/2024 1 0:52 AM CDT Type 2 diabetes mellitus with hyperglycemia, without long-term current use of insulin (HCC) COMPREHENSIVE METABOLIC PANEL Routine 04/28/2023 10:22 AM FROG OR OYSTER FARMWORKER Type 2 diabetes mellitus with hyperglycemia, with long-term current use of insulin (HCC) LIPID PANEL Routine 04/28/2023 10:22 AM FROG OR OYSTER FARMWORKER Type 2 diabetes mellitus with hyperglycemia, with long-term current use of insulin (HCC) ALBUMIN CREATININE RATIO, URINE Routine 04/28/2023 10:22 AM FROG OR OYSTER FARMWORKER Type 2 diabetes mellitus with hyperglycemia, with long-term current use of insulin (HCC) from Last 3 Months or Most Recently Relevant to Health Maintenance Results * Imaging SCS Electrode Placement (40357) (07/29/2024 11:15 AM CDT) Narrative [facility] - 07/29/2024 11:39 AM CDT The images from this study are not interpreted by Radiology. Please refer to the physician's procedure / OR operative note. us Micheal Blanco MD PhD IMG PAIN MGMT PROCEDURES Final Result [facility] * POCT hemoglobin A1c (05/03/2024 10:52 AM CDT) Hemoglobin A1C, POC 8.1 4.0 - 5.6 % Blood 05/03/2024 10:5 2 AM CDT us Gladys Box MD POINT OF CARE TEST ORDERABLES Final Result * Albumin Creatinine Ratio, Urine (04/28/2023 10:22 AM FROG OR OYSTER FARMWORKER) Microalb, Ur 13.1 0.0 - 22.9 mg/L [facility] Random Urine Creatinine 254.3 mg/dL [facility] Microalb/Creat Ratio 5.2 0.0 - 29.9 mg/g [facility] Urine 04/28/2023 10:2 2 AM FROG OR OYSTER FARMWORKER 04/28/2023 11:23 AM FROG OR OYSTER FARMWORKER Gladys Box MD LAB URINE ORDERABLES Final Re sult [facility] * (ABNORMAL) Lipid panel (04/28/2023 10:22 AM FROG OR OYSTER FARMWORKER) Triglycerides 165(H) <150 mg/dL [facility] Comment: Desirable: <150 mg/dL, fasting <175 mg/dL, non-fasting Persistently elevated triglycerides may enhance atherosclerotic cardiovascular disease. Total Cholesterol 106 <200 mg/dL [facility] Comment:Repeated and Verifie d Total HDL-C Direct 32(L) >40 mg/dL [facility] Comment: A low HDL-C may be inidcative of metabolic syndrome and enhance atherosclerotic cardiovascular disease risk. Non-HDL cholesterol 74 <220 mg/dL [facility] [place] LDL Chol 41 <190 mg/dL [facility] Comment: The inaccuracy of the [...] are elevated. Blood 04/28/2023 10:2 2 AM FROG OR OYSTER FARMWORKER 04/28/2023 11:23 AM FROG OR OYSTER FARMWORKER Narrative [facility] - 04/28/2023 1:22 PM FROG OR OYSTER FARMWORKER Current interpretive data was last updated January 26, 2021. For adults ages 40-79, the ACC/AHA recommends discussing your 10-year atherosclerotic cardiovascular disease risk with your health care provider. [email or web address]://www.acc.org/ASCVDApp us Gladys Box MD LAB BLOOD ORDERABLES Final Re sult [facility] * (ABNORMAL) Comprehensive metabolic panel (04/28/2023 10:22 AM FROG OR OYSTER FARMWORKER) Total Protein 7.2 6.1 - 8.4 g/dL [...] - [facility] Blood 04/28/2023 10:2 2 AM FROG OR OYSTER FARMWORKER 04/28/2023 11:23 AM FROG OR OYSTER FARMWORKER Gladys Box MD LAB BLOOD ORDERABLES Final Re sult [facility] from Last 3 Months or Most Recently Relevant to Health Maintenance Insurance MEDICARE [facility] MEDICARE [facility] MEDICARE [facility] Advance Directives For more information, please contact: [phone] * Full Code (Latest Code Status on File) Date Activated Date Inactivated Comments 04/15/2022 4:03 PM 04/18/2022 9:50 PM * Full Code Date Activated Date Inactivated Comments 03/29/2022 4:51 PM 03/30/2022 7:50 PM Care Teams Casino Games Dealer Relationship Specialty Start Date End Date Stuart Howe DO [address] [place] [address] PCP - General Family Medicine 05/10/21 July Maradiaga MD [address] [place] [address] Consulting Physician Cardiology 03/22/22 Bandar Up, RADHAT [address] [facility] [address] [address] Physical Therapist Physical Therapy 06/11/22 Esther Garcia, PT [address] [facility] [place] [address] [address] Physical Therapist Physical Therapy 08/13/22
--- OUTSIDE RECORDS SUMMARY | 2024-08-04 10:06 | XMS_ITS | Encounter Summary ---
Author Organization [employer] Address [address] [place] [address] Care Team Providers Care Artificial Breeding Distributor Name Role Phone Ehsan Campos MD Primary Care Provider [phone] Encounter Details Date Type Department Care Team (Late st Contact Info) Description 02/05/[address] [facility] Support Serv. (Adt Cardiology-[facility]) [address] 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
--- OUTSIDE RECORDS SUMMARY | 2024-08-04 10:06 | XMS_ITS | Clinical Summary ---
Author Organization [facility] Address [address] [facility] [address] Care Team Providers Care Lubrication Equipment Servicer Name Role Phone Cipriano Del Cid REFRIGERATION INSULATOR-SURVEYOR CHAIN HELPER Primary Care Provider [phone] Source Comments [facility],non-owned Affiliates and Associated Physician Practices is amultiple site organization consisting of ambulatory clinics and hospital sitesin [place], [place], [place] and [place]. This disclosure is being madepursuant to the Care Everywhere program and may not contain all information available regarding this patient. Last updated 17.[facility] Allergies Active Allergy Reactions Criticality Noted Date [...] at bedtime 4 Active saline nasal spray (Blaine; Baby [place]) 0.65 % nasal spray [place] 2 (two) sprays into each nostril every [...] FOR 2 WEEK 5 Active nystatin (Mycostatin) 039728 UNIT/ML suspension ADMINISTER 2ML TO EACH CHEEK POUCH EVERY 6 HOURS FOR 10 DAY 5 Active tuberculin PPD (Tubersol) 5 UNIT/0.1ML injection Tuberculin PPD Solution 5 UNIT/0.1ML active 584018 RXNORM 0.1 ml Intradermal every evening shift [...] (05/01/2023): Added automatically from request for surgery [id number] Atherosclerotic heart diseas e of [place] coronary artery without angina pectoris 04/19/2020 05/01/2023 [...] 05/11/2014 05/01/2023 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 05/01/2023 Overview (05/01/2023): Coronary arteriosclerosis in [place] artery Resolved Problems Problem Noted Date Diagnosed Date Resolved Date Bacterial pneumonia 11/18/2023 12/16/19 24 Fever 11/27/2018 12/11/2018 Encounters Date Type Department Care Team Description 06/28/2024 2:45 PM CDT Office Visit [facility] - Neurosurgery [address] [place] [phone] Demetrius Morgan MD Closed odontoid fracture with nonunion, subsequent encounter (Primary Dx) 06/28/2024 1:42 PM CDT - 06/28/2024 11:59 PM CDT Hospital Encounter [facility] [address] [place] [address] Demetrius Morgan MD Discharge Disposition: Home or Self Care 06/28/2024 Travel 05/31/2024 11:30 AM CDT Office Visit [facility] - Neurosurgery [address] [place] [phone] Demetrius Morgan MD Closed odontoid fracture with delayed healing, subsequent encounter (Primary Dx) 05/31/2024 Travel 05/26/2024 10:15 AM CDT Office Visit [facility] - ENT [address] [place] [place] [phone] Vinicius Avalos MD Bilateral sensorineural hearing loss (Primary Dx); Asymmetric SNHL (sensorineural hearing loss) 05/26/2024 9:00 AM CDT Office Visit [facility] - ENT [address] [place] [phone] Honey Manrique, FABRICATION MIG WELDER 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 Travel 05/13/2024 9:00 AM CDT Office Visit [facility] - ENT [address] [place] [phone] Honey Manrique SLP Presbylaryshay (Primary Dx); Presbyphonia 05/13/2024 Travel 05/06/2024 3:45 PM CDT Office Visit [facility] - ENT [address] [place] [phone] Byron Robins MD Presbylarynges (Primary Dx); Presbyphonia 05/06/2024 Refill [facility] - Sleep Services [address] [place] [address] Deepak Larson MD Refill Request 05/06/2024 Travel from Last 3 Months Immunizations Immunization [...] and heating? Not hard at all 11/07/2023 [facility] - Occupational Stress [...] place to sleep or slept in a fci (including now)? No 11/07/2023 Sex and Gender Information Value Date Recorded Sex Assigned at Not on file Legal Sex Male 5:16 PM CORRECTION OFFICER HEAD Gender Identity Not on file Sexual Orientation [...] 2:53 PM CDT Height 175.3 cm (5' 9) 06/28/2024 2:53 PM CDT Body Mass Index 24.96 06/28/2024 2:53 PM CDT Plan of Treatment Upcoming Encounters Date Type Department Care Team (Late st Contact Info) Description 09/29/2024 10:00 AM CDT Office Visit [facility] - ENT [address] [place] [place] [phone] Honey Manrique SLP [address] [place] [address] [place] [phone] 09/29/2024 11:00 AM CDT Office Visit [facility] - ENT [address] [place] [place] [phone] Vinicius Avalos MD [address] [place] [address] 2L [place] [address] Health Maintenance Due Date Last Done Comments [...] this topic Medical Devices Implanted Type Area Land Survey Technician Device Identifier Shelf Expiration Date Model / Serial / Lot Screw 4mm 38mm Spne Jose Eleazar Ucss Ti Implanted:Qty: 1 on 11/14/2023 by Demetrius Morgan MD at [facility] N/A: Spine Cervical Medtronic Inc [id number] / / Screw 4mm 38mm Eleazar Lag Spne Jose Ucss Implanted:Qty: 1 on 11/15/2023 by Demetrius Morgan MD at [facility] N/A: Spine Cervical Medtronic Inc [...] Report dictated by Jose David Braga MD, (Buckle Assembler). I, Nito Prabhakar MD have personally reviewed and interpreted this examination/study. > Interpreting Provider: Nito Prabhakar MD on 06/28/2024 4:17 PM Narrative 06/28/2024 4:17 PM CDT PROCEDURE: CT CERVICAL SPINE WO CONTRAST, DATE/TIME OF EXAM: 06/28/2024 2:19 PM, LOCATION [facility] INDICATION: S12.100G: Closed odontoid fracture with [...] DATE/TIME OF EXAM: 06/28/2024 2:19 PM, LOCATION [facility] INDICATION: S12.100G: Closed odontoid fracture with [...] Report dictated by Jose David Braga MD, (Buckle Assembler). I, Nito Prabhakar MD have personally reviewed and interpreted this examination/study. > Interpreting Provider: Nito Prabhakar MD on 06/28/2024 4:17 PM us Demetrius Morgan MD CT ORDERABLES Final Re sult * (ABNORMAL) COMPREHENSIVE METABOLIC PANEL (12/16/2023 6:56 AM CDT) BUN 26 7 - 26 mg/dL 12/16/2023 8:14 AM [facility] Creatinine 0.74 0.71 - 1.16 mg/dL 12/16/2023 8:14 AM [facility] Sodium 139 136 - 145 mmol/L 12/16/2023 8:14 AM [facility] Potassium 3.6 3.5 - 4.5 mmol/L 12/16/2023 8:14 AM [facility] Chloride 100 98 - 107 mmol/L 12/16/2023 8:14 AM [facility] CO2 29 22 - 29 mmol/L 12/16/2023 8:14 AM [facility] Glucose 224(H) 70 - 115 mg/dL 12/16/2023 8:14 AM [facility] Calcium 9.1 8.4 - 10.2 mg/dL 12/16/2023 8:14 AM [facility] Protein Total 6.8 6.0 - 8.3 g/dL 12/16/2023 8:14 AM [facility] Albumin 3.1(L) 3.4 - 5.0 g/dL 12/16/2023 8:14 AM [facility] Bilirubin Total 0.5 0.2 - 1.2 mg/dL 12/16/2023 8:14 AM [facility] Alkaline Phosphatase 96 40 - 150 U/L 12/16/2023 8:14 AM [facility] ALT 38 5 - 55 U/L 12/16/2023 8:14 AM [facility] AST 38(H) 5 - 34 U/L 12/16/2023 8:14 AM [facility] Anion Gap 10 6 - 16 12/16/2023 8:14 AM [facility] BUN/Creatinine Ratio 35(H) 7 - 23 12/16/2023 8:14 AM [facility] Osmolality Calculated 300(H) 275 - 295 mOsm/kg 12/16/2023 8:14 AM [facility] Albumin/Globulin Ratio 0.8(L) 1.1 - 2.3 12/16/2023 8:14 AM [facility] eGFR by CKD-EPI >90 >=90 mL/min/1.7 3 m2 12/16/2023 8:14 AM [facility] Blood BLOOD SPECIMEN / Unknown Lab Venipuncture / Unknown 12/16/2023 6:56 AM CDT 12/16/2023 7:48 AM CDT Ananth Jeffrey REFRIGERATION INSULATOR-SURVEYOR CHAIN HELPER LAB - CHEMISTRY ORDERABL ES Final Result [facility] [address] [place] [phone], [facility] [phone] * (ABNORMAL) HEMOGLOBIN A1C (11/06/2023 4:00 AM CDT) Hemoglobin A1c 7.9(H) <=5.6 % 11/06/2023 9:00 AM [facility] Estimated Average Glucose 180 mg/dL 11/06/2023 9:00 AM [facility] Comment: HbA1c Interpretation: Normal : < 5.7% Pre-diabetes: 5.7-6.4% Diabetes: Equal to or greater than 6.5% Test results diagnostic of diabetes should be repeated for confirmation. Treatment target values recommended by ADA and other clinical organizations should be used to evaluate metabolic control in patients. Reference: [place] Diabetes Association, Standards of Care in Diabetes -2020 In patients 70 years and older consider HbA1c target range of 7.0-7.5% (Reference: Bardales A, et al. WARDDA. 2012) The Sebia assay for the measurement of HbA1c is a National Glycohemoglobin Standardization Program (NGSP) certified method. Blood BLOOD SPECIMEN / Unknown Venipuncture / Unknown 11/06/2023 4:00 AM CDT 11/06/2023 4:09 AM CDT us José Miguel Jeronimo MD LAB - CHEMISTRY ORDERABLES F inal Result [facility] [address] [place] [address], [facility] [phone] from Last 3 Months or Most Recently Relevant to Health Maintenance Additional Health Concerns Infection Onset Date Last Indicated MRSA Hx 11/07/2023 11/07/2023 Insurance MEDICARE [facility] MEDICARE Advance Directives * Full Code (Latest Code Status on File) Date Activated Date Inactivated Comments 11/04/2023 11:12 PM 12/16/2023 8:27 PM * Full Code Date Activated Date Inactivated Comments 11/28/2018 12:22 AM 12/01/2018 1:00 PM Care Teams Lubrication Equipment Servicer Relationship Specialty Start Date End Date Cipriano Del Cid APRN-NATE [address] [place] [address] PCP - General 12/26/22
--- OUTSIDE RECORDS SUMMARY | 2024-08-04 10:06 | XMS_ITS | Encounter Summary ---
Author Organization [employer] Address 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
--- OUTSIDE RECORDS SUMMARY | 2024-08-04 10:06 | XMS_ITS | Encounter Summary ---
Author Organization [facility] Healthcare Address [address] [place] [address] Care Team Providers Care Metal Machine Operator Name Role Phone Stuart Howe DO Primary Care Provider July Maradiaga MD Unavailable [phone] Bandar Up DPT Unavailable [phone] Esther Garcia PT Unavailable [phone] Reason for Visit * Reason Onset Date Comments POST SCS TRIAL CALL 07/29/2024 Encounter Details Date Type Department Care Team (Late st Contact Info) Description 07/29/2024 Telephone [facility] [address] [address], [address] [place] [id number] Micheal Blanco MD PhD [address] [place] [address] POST SCS TRIAL CALL Social History Tobacco Use Types Packs/Day Years [...] on file 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 Never 07/29/2024 9:25 AM Laura Mahmood RN Q2: How many drinks containing alcohol do you have on a typical day when you are drinking? Patient does not drink 07/29/2024 9:25 AM Laura Mahmood RN Q3: How often do you have six or more drinks on one occasion? Never 07/29/2024 9:25 AM Laura Mahmood RN documented as of this encounter Miscellaneous Notes * Telephone Encounter - Laura Gómez RN - 07/30/2024 12:53 PM CDT Called the Home number and spoke with daughter, she told me to call [phone] Called and spoke with patient Called patient and stated his back is itchy, but he can't see any red bumps or a rash. He thinks it's because he was sweating Other than that, patient denies any abnormal side effects Patient is rating pain at 2-3/10 He states his dressing looks okay, and he hasn't had any issues Patient states that he hasn't had any issues with programming * Telephone Encounter - Magaly Matthew RN - 07/29/2024 10:12 AM CDT Please call pt tomorrow, 07/30/24, S/P SCS trial, thanks! documented in this encounter Plan of Treatment [...] filedocumented in this encounter Care Teams Metal Machine Operator Relationship Specialty Start Date End Date Stuart Howerish, DO [address] [place] [address] PCP - General Family Medicine 05/10/21 July Maradiaga MD [address] [place] [address] Consulting Physician Cardiology 03/22/22 Bandar Up DPT [address] [facility] [address] [address] Physical Therapist Physical Therapy 06/11/22 Esther Garcia, PT [address] [facility] [address] [address] Physical Therapist Physical Therapy 08/13/22 documented as of this encounter
--- NOTE | 2024-08-04 12:12 | REHSTMBS ---
Assessment and note entered by Jacquie Purdy, ELECTRONIC SEMICONDUCTOR PROCESSOR Modified Barium Swallow Evaluation ICD-10 Condition Codes (ST) Dysphagia, pharyngeal phase R13.13 Subjective Information The patient is a 78 year old male referred for a repeat MBS study. He was last seen in February 2024 for a MBS study and recommendations included crushing medications. The patient reports dysphagia concerns first noted following neck surgery in November of 2023. Since that time he reports eating a regular diet and thin liquid but having to take medication crushed. He does state that at times he does cough primarily he has noticed coughing with liquids. Feeding Type Recommended Oral Food Consistency Regular, Level 7 Liquid Consistency Thin (0) Treatment Recommendations Effortful Swallow,Donnie Maneuver,Supraglottic Swallow,Tongue Base Exercise ST Clinical Summary The patient is a 78 year old male referred for a repeat MBS study. He was last seen in February 2024 for a MBS study and recommendations included crushing medications. The patient reports dysphagia concerns first noted following neck surgery in November of 2023. Since that time he reports eating a regular diet and thin liquid but having to take medication crushed. He does state that at times he does cough primarily he has noticed coughing with liquids. MBS Results and Recommendations: The patient was evaluated on the lateral view with thin liquid barium via tsp and uncontrolled via cup, mildly thick liquid barium uncontrolled via cup, pudding mixed with barium paste, cracker coated with barium paste, and a barium pill. Oral Stage: Was within normal limits for most consistencies. The patient required extra time to masticate solid/ cracker texture due to limited dentition which resulted in some premature spillage over the tongue base and piecemeal deglutition. Pharyngeal Stage: Moderate residual remaining the the vallecula and pyriform sinus for pudding, cracker and mildly thick trials secondary to reduced lingual pressure, reduced anterior laryngeal movement and cricopharyngeal dysfunction. Residual reduced when alternating bites with small thin liquid wash. Trace laryngeal penetration was viewed once during the MBS study with cup trials thin liquid during the swallow secondary to reduced laryngeal elevation the martial entered the airway above the vocal folds but was not ejected. Trace laryngeal penetration secondary to reduced laryngeal elevation. Additional penetration eliminated with a chin-tuck flexed position and small controlled drinks thin liquid barium or Mildly thick liquid via cup small amounts and head in neutral position. Recommend: 1. Small bites and drinks, Slow rate of intake. 2. Small drinks thin liquid and chin tuck position during swallow 3. Repeat swallow 4. Alternate bites and drinks during meals. 5. upright with meals 6. Crushed medication in applesauce 7. Outpatient speech therapy services discussed family and recommended.
--- NOTE | 2024-08-04 12:15 | STOPEVAL1 ---
Assessment and note entered by Jacquie Purdy, STEAMER TENDER Reported Pain Level Pain Score 0: Self Report Assessment ST Clinical Summary The patient is a 78 year old male referred for a repeat MBS study. He was last seen in February 2024 for a MBS study and recommendations including crushing medications. The patient reports dysphagia concerns first noted following neck surgery in November. Since that time he reports eating a regular diet and thin liquid but having to take medication crushed. He does state that at times he does cough primarily he has noticed it with liquids. MBS Results and Recommendations: The patient was evaluated on the lateral view with thin liquid barium via tsp and uncontrolled via cup, mildly thick liquid barium uncontrolled via cup. pudding mixed with barium paste, cracker coated with barium paste, and a barium pill. Oral Stage: Was within normal limits for most consistencies. the patient required extra time to masticate solid/ cracker texture due to limited dentition which resulted in some premature spillage over the tongue base and piecemeal deglutition. Pharyngeal Stage: Moderate residual remaining the the vallecula and pyriform sinus for pudding, cracker and mildly thick trials secondary to reduced lingual pressure, reduced anterior laryngeal movement and cricopharyngeal dysfunction. Residual reduced when alternating bites with small thin liquid wash. Trace laryngeal penetration was viewed once during the MBS study with cup trials thin liquid during the swallow secondary to reduced laryngeal elevation the martial entered the airway above the vocal folds but was not ejected. Trace laryngeal penetration secondary to reduced laryngeal elevation. Additional penetration eliminated with a chin-tuck flexed position and small controlled drinks thin liquid barium or Mildly thick liquid via cup small amounts and head in neutral position. Recommend: 1. Small bites and drinks, Slow rate of intake. 2. Small drinks thin liquid and chin tuck position during swallow 3. Repeat swallow 4. Alternate bites and drinks during meals. 5. upright with meals 6. Crushed medication in applesauce 7. Outpatient speech therapy services discussed family and recommended. Plan of Care ST Services Indicated Yes These treatments will address the objective and functional deficits as defined above. The patient will be advanced safely and appropriately in order for the patient to progress towards his/her prior level of function. Additional exercises will be introduced and as well as a comprehensive home exercise program upon discharge, if needed, ?to ensure carryover of functional gains achieved in the clinic. This treatment plan has been reviewed and agreement upon by the patient.
== END 2024-08-04 09:14 | disposition home or self-care (01) ==
PROVIDERS: PCP Nurse Practitioner Family; Visit Provider Nurse Practitioner Family
DX: R13.13 Dysphagia, pharyngeal phase (principal); J69.0 Pneumonitis due to inhalation of food and vomit
CPT/HCPCS: 92611

== ENCOUNTER 2024-11-23 09:00 | Outpatient (RCR) | payer MEDICARE, OTHER, SELFPAY ==
--- NOTE | 2024-09-13 18:18 | BUSTOPEVAL1 ---
Assessment and note entered by Altagracia Cruz, ANIMAL CRUELTY INVESTIGATOR Evaluation Information Assessment Status Evaluation Diagnosis R13.10 Dysphagia ICD-10 Condition Codes (ST) Dysphagia, unspecified R13.1,Dysphagia, pharyngeal phase R13.13 Subjective Information Patient was referred for a skilled ST evaluation due to ongoing dysphagia post neck surgery in November of 2023. Patient was fed through a feeding tube for 5 months post surgery due to extensive difficulty swallowing and severe delirium. Patient reported that the feeding tube was removed at the end of March and he has been tolerating an oral diet since then. He reported that he continues to have difficulty swallowing but feels that it continues to improve overall. He had a repeat MBS on 08-05-24 indicating laryngeal penetration with thin trials of fluid via cup. Penetration was eliminated through use of chin tuck position and single/small sips. Recommendation for skilled ST treatment in OP setting post MBS due to ongoing swallowing difficulty and risk for aspiration at this time. Patient currently consumes a fairly normal diet with only several foods eliminated due to difficulty in tolerance (spinach, greens, and caramel). He crushes some medication but takes others whole. He reported that he continues to cough intermittently with and without po intake at this time. He does not currently see ST for dysphagia and is currently not performing swallowing exercises to improve overall function for swallowing. MASA was given with a score of 169 indicating mild aspiration risk and mild dysphagia at this time. Reported Pain Level Pain Score 0: Self Report Assessment ST Clinical Summary Patient was referred for a skilled ST evaluation due continued dysphagia symptoms post neck surgery in November of 2023. Patient reported that post surgery he experienced delirium and was unable to swallow resulting in a feeding tube for 5 months. The feeding tube was removed toward the end of March 2024 with ongoing difficulty with swallowing. He reported that he often coughs with food/fluids along with difficulty swallowing pills . He currently tolerates a regular level 7 solid diet with level 0 fluids. A modified barium swallow study was completed August 05, 2024 indicating: Oral stage within normal limits Pharyngeal stage: Moderate residual remaining in vallecula and pyriform sinuses with cracker, pudding and level 2 fluid trials secondary to reduced lingual pressure, reduced anterior laryngeal movement, and cricopharyngeal dysfunction. Residual reduced through alternation of food/fluid. Trace penetration noted once with cup trials of thin liquid. Penetration eliminated through chin tuck and small controlled drinks of thin fluids. Pharyngeal stage deficits: cricopharyngeal dysfunction, delayed triggering, poor tongue base retraction, reduced laryngeal elevation. Recommendation: small bites/drink, decrease rate of intake, chin tuck with fluids, repeat swallow study, alteration of food/fluids, upright with all meals crush medication and OP ST treatment. An oral motor exam was completed with decreased lingual elevation strength, decreased lingual backing, decreased laryngeal elevation upon palpation along with sustained max phonation of 13 seconds. Patient was seen with trials of thin ice water via cup, minimal bites of granola bar and peaches. Patient presented with cough during and post deglutition with initial drink of thin ice water via cup suspect due to premature spillage resulting in penetration and possible aspiration. Patient did not demonstrate use of chin tuck or decreased bolus size with trial. Education regarding importance with improvement noted on subsequent trials. Patient currently does not have a home program for swallowing exercises to target strengthening and coordination. Education and handouts were given this date to target various swallowing exercises to improve overall skills for improved swallowing function. MASA was given with a score of 169 indicating mild aspiration risk and mild dysphagia at this time. Recommendation for skilled ST treatment to target dysphagia R13. 10, 1x/ week for [address] treatment to target delayed triggering of swallow, poor tongue base retraction, reduced laryngeal elevation and respiratory support/control for improve airway protection. Plan of Care Interventions Treatment of Swallowing Dysfunction Treatment Frequency and 1x/week for 10 visits Duration These treatments will address the objective and functional deficits as defined above. The patient will be advanced safely and appropriately in order for the patient to progress towards his/her prior level of function. Additional exercises will be introduced and as well as a comprehensive home exercise program upon discharge, if needed, ?to ensure carryover of functional gains achieved in the clinic. This treatment plan has been reviewed and agreement upon by the patient.
--- NOTE | 2024-09-13 18:19 | OPREHPOC ---
Outpatient Therapy Plan of Care This is a Multidisciplinary Plan of Care that may contain components documented by all disciplines (PT, OT, and ST.) ST Problem 1 ST Problem #[address] Goal 1 Goal / Goal Update 1. Patient will participate in skilled home programming to promote carryover/generalization of skills to home environment. Target Visit [address] Problem #[address] Goal 1 Goal / Goal Update 1. Patient will tolerate least restrictive diet with no overt signs or symptoms of aspiration through use of trained compensatory techniques with minimal to no cues. Target Visit [address] Problem #[address] Goal 1 Goal / Goal Update 1. Patient will perform lingual backing exercises to improve bolus formation and propulsion 12 reps with minimal cues. 2. Patient will perform veda to improve swallowing function 10 reps with minimal cues. 3. Patient will perform chin tuck against resistance to improve strength for swallowing function 10 reps with minimal cues. 4. Patient will perform laryngeal elevation/ adduction exercises 10 reps with minimal cues to improve laryngeal elevation for airway protection. 5. Patient will perform effortful swallow to improve bolus transit 10 reps with minimal cues. Target Visit [address] Problem #[address] Goal 1 Goal / Goal Update 1. Patient will perform max phonation exercises to improve respiratory support for swallowing sustained 15 seconds for 5 sets. Target Visit 10
--- NOTE | 2024-11-23 12:04 | BUSTOPDC ---
Assessment and note entered by Altagracia Cruz, SURGICAL ORDERLY Evaluation Information Assessment Status Discharge Diagnosis R13.10 Dysphagia ICD-10 Condition Codes (ST) Dysphagia, unspecified R13.1,Dysphagia, pharyngeal phase R13.13 Subjective Information Patient was referred for a skilled ST evaluation due to ongoing dysphagia post neck surgery in November of 2023. Patient was fed through a feeding tube for 5 months post surgery due to extensive difficulty swallowing and severe delirium. Patient reported that the feeding tube was removed at the end of March and he has been tolerating an oral diet since then. He reported that he continues to have difficulty swallowing but feels that it continues to improve overall. He had a repeat MBS on 08-05-24 indicating laryngeal penetration with thin trials of fluid via cup. Penetration was eliminated through use of chin tuck position and single/small sips. Recommendation for skilled ST treatment in OP setting post MBS due to ongoing swallowing difficulty and risk for aspiration at this time. Patient currently consumes a normal diet and is not avoiding any foods due to improvement in tolerance. Patient also now is able to take all medication whole without difficulty. He reports that he feels he is doing really well with oral intake at this time and is ready for discharge. Patient continue to perform recommended swallow exercises daily and feels that they are helping. Reported Pain Level Pain Score 6,6,6: Self Report Pain Score 4,8,7: Self Report Pain Score 5,8,5: Self Report Pain Score 5,5,5: Self Report Pain Score 5,5,5: Self Report Pain Score 0: Self Report Pain Score 0: Self Report Additional Pain Score Comments Patient fell yesterday while in his kitchen. He reported that he did not think he hit his head and it does not feel tender today. He reported that he does not know how he fell. Assessment ST Clinical Summary Patient was referred for a skilled ST evaluation due continued dysphagia symptoms post neck surgery in November of 2023. Patient reported that post surgery he experienced delirium and was unable to swallow resulting in a feeding tube for 5 months. The feeding tube was removed toward the end of March 2024 with ongoing difficulty with swallowing. He reported that he often coughs with food/fluids along with difficulty swallowing pills . He currently tolerates a regular level 7 solid diet with level 0 fluids. A modified barium swallow study was completed August 05, 2024 indicating: Oral stage within normal limits Pharyngeal stage: Moderate residual remaining in vallecula and pyriform sinuses with cracker, pudding and level 2 fluid trials secondary to reduced lingual pressure, reduced anterior laryngeal movement, and cricopharyngeal dysfunction. Residual reduced through alternation of food/fluid. Trace penetration noted once with cup trials of thin liquid. Penetration eliminated through chin tuck and small controlled drinks of thin fluids. Pharyngeal stage deficits: cricopharyngeal dysfunction, delayed triggering, poor tongue base retraction, reduced laryngeal elevation. Recommendation: small bites/drink, decrease rate of intake, chin tuck with fluids, repeat swallow study, alteration of food/fluids, upright with all meals crush medication and OP ST treatment. Patient has completed a total of [address] treatment sessions for dysphagia since the initial evaluation on 09-13-24. He continues to show improvements in overall swallow function with very minimal risk for aspiration at this time. MASA was re-administered with a score of 178 indicating no aspiration or dysphagia at this time. Patient reported that he continues to notice improvements in his swallowing with very minimal to no difficulties at this time. He currently consumes a normal level 7 solid diet and level 0 fluids with no reported difficulty along with tolerating medication whole. Continued improvements noted in treatment with less cues required to utilize trained compensatory techniques to improve airway protection. Patient continues to perform swallowing exercises 1-2 times per day through handouts given and thorough explanation throughout treatment. Patient is happy with improvements made in swallowing function and is ready for discharge at this time. Plan of Care Interventions Treatment of Swallowing Dysfunction Treatment Frequency and Discharge from skilled at this time. Duration
--- NOTE | 2024-11-23 12:05 | OPREHPOC ---
Outpatient Therapy Plan of Care This is a Multidisciplinary Plan of Care that may contain components documented by all disciplines (PT, OT, and ST.) ST Problem 1 ST Problem #[address] Goal 1 Goal / Goal Update 1. Patient will participate in skilled home programming to promote carryover/generalization of skills to home environment. -Goal met this date with great carryover of swallowing exercises to home envionrment through education and handouts. Target Visit [address] Problem 2 ST Problem #[address] Goal 1 Goal / Goal Update 1. Patient will tolerate least restrictive diet with no overt signs or symptoms of aspiration through use of trained compensatory techniques with minimal to no cues. Target Visit [address] Problem #[address] Goal 1 Goal / Goal Update 1. Patient will perform lingual backing exercises to improve bolus formation and propulsion 12 reps with minimal cues. -goal met with minimal cues and 12 reps. 2. Patient will perform veda to improve swallowing function 10 reps with minimal cues. - Goal met. 13 reps with minimal cues. 3. Patient will perform chin tuck against resistance to improve strength for swallowing function 10 reps with minimal cues. -Goal met. 10 reps for 2 sets with minimal cues. 4. Patient will perform laryngeal elevation/ adduction exercises 10 reps with minimal cues to improve laryngeal elevation for airway protection. -Discharge goal 12 reps with moderate cues. 5. Patient will perform effortful swallow to improve bolus transit 10 reps with minimal cues. -Discharge goal. 10 reps with minima/moderate cues . Target Visit [address] Problem 4 ST Problem #[address] Goal 1 Goal / Goal Update 1. Patient will perform max phonation exercises to improve respiratory support for swallowing sustained 15 seconds for 5 sets. -Goal met sustained 20+ seconds range of 16-23 for 5 reps. Target Visit 10 Progress Met
== END 2024-11-23 15:48 | disposition home or self-care (01) ==
LOC: CHSST 09:00
PROVIDERS: PCP Nurse Practitioner Family; Visit Provider Nurse Practitioner Family
DX: R13.10 Dysphagia, unspecified (principal)
CPT/HCPCS: 92526; 92610

== ENCOUNTER 2024-11-23 11:30 | Outpatient (CLI) | payer MEDICARE, OTHER, SELFPAY ==
--- OUTSIDE RECORDS SUMMARY | 2024-11-22 10:15 | XMS_ITS | Encounter Summary ---
Author Organization [facility] Healthcare Address [address] [place] [address] Care Team Providers Care Talent Acquisition Coordinator Name Role Phone Stuart Howe DO Primary Care Provider July Maradiaga MD Unavailable [phone] Bandar Up DPT Unavailable [phone] Esther Garcia PT Unavailable [phone] Reason for Visit * Reason Comments New Patient Transferring from [facility] Encounter Details Date Type Department Care Team (Late st Contact Info) Description 11/22/2024 10:15 AM CDT Office Visit [facility] Cardiology at [address] [place] [address] Gavin Gr MD [address] [place] [address] Status post insertion of drug eluting coronary artery stent (Primary Dx) Social History Tobacco Use Types Packs/Day Years Used Date Smoking Tobacco: Former Cigarettes 1 10 Q uit: 02/25/1964 Smokeless Tobacco: Never Alcohol Use Standard Drinks/Week Comments No 0 (1 standard drink = 0.6 oz pur e alcohol) AUDIT-C Answer Date Recorded Q1: How often do you have a drink containing alcohol? Never 09/23/2024 Q2: How many drinks containi ng alcohol do you have on a typical day when you are drinking? Patient does not drink Q3: How often do you have si x or more drinks on one occasion? Never 09/23/2024 PHQ-2 Answer Date Recorded PHQ-2 Total Score [...] making you feel afraid or unsafe? 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 Gender Identity Male 05/07/2021 12:04 AM CDT Sexual Orientation Straight 06/25/2022 9: 20 AM CDT documented as of this encounter Last Filed Vital Signs Vital Sign Reading Time Taken Comments Blood Pressure 142/70 11/22/2024 10:01 AM CDT Pulse 67 11/22/2024 10:01 AM CDT Temperature - - Respiratory Rate - - Oxygen Saturation 98% 11/22/2024 10:01 AM CDT Inhaled Oxygen Concentration - - Weight 78.7 kg (173 lb 6.4 oz) 11/22/2024 10:01 AM CDT Height 175.3 cm (5' 9) 11/22/2024 10:01 AM CDT Body Mass Index 25.61 11/22/2024 10:01 AM CDT documented in this encounter Progress Notes * Gavin Gr MD - 11/22/2024 10:15 AM CDT [facility] CARDIOLOGY 11/22/2024 CHIEF COMPLAINT Coronary artery disease, establishing care HPI Gavin Fenton is a 78 y.o. male with a history of coronary artery disease becoming established today for ongoing care as his physician apparently is retiring. He presented to [facility] [id number] with acute myocardial infarction. It looks like I was on-call and brought him to the [facility] where he had a 100% acute occlusion of his proximal to mid RCA. This was treated with a drug-elutingstent with a very good anatomical result. He received a 4 x 23 mm Xience stent. There was an unrelated 90% stenosis in the 1st OM branch of the circumflex which was essentially a ramus intermedius branch. According to records that were brought with him for today's appointment his OM1 lesion was stented in April of 2020. He says that that lesion was treated because he needed to have some back surgery done. He does not remember having any ischemic chest pain however. Because of the fact that surgery was upcoming he had a bare metal stent deployed. About 1 year ago he had a fracture of cervical spine according to the it sounds like this was C1 and it was treated by Neurosurgery at [facility]. He has had several back operations as such he does not ambulate aggressively but he does conduct his daily activities without provoking any anginal-type chest pain MEDICAL HISTORY Past Medical History: Diagnosis Date Arthritis Asthma Coronary artery disease Diabetes mellitus (HCC) Gastric reflux GERD (gastroesophageal reflux disease) HX OTHER MEDICAL Diabetes Type II Hypercholesteremia Hypertension Hypertension Hypertriglyceridemia Kidney stone Left-sided sensorineural hearing loss Myocardial infarction (HCC) Obstructive sleep apnea Does not tolerate CPAP Postoperative delirium for 4 months per patient s/p cervical surgery 2023 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 Type 2 diabetes mellitus Past Surgical History: Procedure Laterality Date BACK SURGERY 05/10/2014 x6, most recent = spinal fusion L3-5 posterior BIOPSY 03/29/2022 Biopsy sural nerve with allograft reconstruction CARDIAC STENT PLACEMENT 2019 x3 CHOLECYSTECTOMY 1986 COLONOSCOPY 10/10/2015 ESOPHAGOGASTRODUODENOSCOPY 12/05/2023 FLUORO GUIDED ASPIRATION OR INJECTION INTERMEDIATE JOINT RIGHT Right 07/29/2024 Shoulder HAND SURGERY Bilateral unknown dates; trigger finger and carpal tunnel HERNIA REPAIR 1971 LUMBAR FUSION 2014 3-5 MICRODISCECTOMY 2015 L2-4 NECK SURGERY 11/2023 OTHER SURGICAL HISTORY 05/05/2023 Drug enduced sleep endoscopy OTHER SURGICAL HISTORY 11/14/2023 Odontoid screw placed for C2 fracture SINUS SURGERY x3 VASECTOMY 04/08/1977 Family History Problem Relation Age of Onset Heart disease Mother Diabetes Mother Arthritis Mother Heart attack Mother Myocardial Infarction; Cause of : Myocardial Infarction Diabetes Father Heart disease Father Arthritis Father Heart attack Father Myocardial Infarction; Hypertension Sister Arthritis Sister Hypertension Sister Hypertension; Arthritis Brother HIV Brother Arthritis Son Heart disease Other Arthritis Other Diabetes Other Anesthesia problems Neg Hx Social History Tobacco Use Smoking status: Former Current packs/day: 0.00 Average packs/day: 1 pack/day for 10.0 years (10.0 ttl pk-yrs) Types: Cigarettes Quit date: 02/25/1964 Years since quittin.7 Smokeless tobacco: Never Substance and Sexual Activity Drug use: Never Sexual activity: Defer Alcohol Use: Not At Risk (09/23/2024) AUDIT-C Frequency of Alcohol Consumption: Never Average Number of Drinks: Patient does not drink Frequency of Binge Drinking: Never Current Outpatient Medications Medication acetaminophen (TYLENOL) 500 mg tablet albuterol HFA (PROVENTIL HFA,VENTOLIN HFA,PROAIR HFA) 90 mcg/actuation inhaler aspirin 81 mg enteric coated tablet atorvastatin (LIPITOR) 40 mg tablet clobetasoL (TEMOVATE) 0.05 % cream doxazosin (CARDURA) 1 mg tablet folic acid (FOLVITE) 1 mg tablet insulin glargine (BASAGLAR) 100 unit/mL (3 mL) pen for injection insulin lispro (HumaLOG, ADMELOG) 100 unit/mL pen for injection ipratropium (ATROVENT) 42 mcg (0.06 %) nasal spray metoprolol tartrate (LOPRESSOR) 25 mg immediate release tablet omeprazole (PriLOSEC) 40 mg capsule pen needle, diabetic 32 gauge x 5/32 needle rOPINIRole (REQUIP) 1 mg tablet traZODone (DESYREL) 50 mg tablet trospium (SANCTURA) 20 mg tablet HYDROcodone-acetaminophen (NORCO) 5-325 mg per tablet ipratropium-albuteroL (DUO-NEB) 0.5-2.5 mg/3 mL nebulizer solution No current facility-administered medications for this visit. Allergies Allergen Reactions Mirtazapine Other (See comments) REVIEW OF SYSTEMS General ROS: negative for - chills, fatigue, fever, malaise, night sweats, weight gain or weight loss Psychological ROS: negative for - anxiety, depression, memory difficulties or sleep disturbances Ophthalmic ROS: negative for - blurry vision, decreased vision, loss of vision or scotomata ENT ROS: negative for - epistaxis, headaches, hearing change, nasal congestion, nasal discharge, sore throat, vertigo or visual changes Hematological and Lymphatic ROS: negative for - bleeding problems, blood clots, bruising, fatigue or weight loss Endocrine ROS: negative for - hot flashes, palpitations, polydipsia/polyuria or unexpected weight changes Respiratory ROS: negative for - cough, hemoptysis, orthopnea, shortness of breath, tachypnea or wheezing Cardiovascular ROS: negative for - chest pain, dyspnea on exertion, edema, irregular heartbeat, loss of consciousness, murmur, orthopnea, palpitations, paroxysmal nocturnal dyspnea, rapid heart rate or shortness of breath Gastrointestinal ROS: negative for - abdominal pain, appetite loss, blood in stools, constipation, diarrhea, gas/bloating, heartburn, hematemesis, melena or nausea/vomiting Genito-Urinary ROS: negative for - dysuria, erectile dysfunction or hematuria Musculoskeletal ROS: negative for - joint pain, muscle pain or muscular weakness Dermatological ROS: negative for dry skin, eczema, pruritus and rash LABS AND OTHER DIAGNOSTIC TESTS Lab Results Component Value Date WBC 6.41 09/02/2024 HGB 12.2 (L) 08/30/2024 HCT 37.2 (L) 08/30/2024 MCV 87.9 08/30/2024 PLT 173 04/28/2023 No lab exists for component: LABALBU Lab Results Component Value Date CHOL 91 09/02/2024 CHOL 106 04/28/2023 CHOL 197 04/15/2022 Lab Results Component Value Date HDL 28 (L) 09/02/2024 HDL 43 04/15/2022 HDL 29 (L) 03/31/2013 Lab Results Component Value Date LDLCALC 47 09/02/2024 LDLCALC 81 04/15/2022 Lab Results Component Value Date TRIG 77 09/02/2024 TRIG 165 (H) 04/28/2023 TRIG 365 (H) 04/15/2022 Lab Results Component Value Date CHOLHDL 3 09/02/2024 CHOLHDL 5 04/15/2022 PHYSICAL EXAM Vitals BP 142/70 (BP Location: Left arm, Patient Position: Sitting) Pulse 67 Ht 175.3 cm (5' 9) Wt 78.7 kg (173 lb 6.4 oz) SpO2 98% BMI 25.61 kg/m?? General appearance - alert, well appearing, and in no distress, oriented to person, place, and timeand acyanotic, in no respiratory distress Mental status - affect appropriate to mood Eyes - extraocular eye movements intact, sclera anicteric, no pallor Ears - external earsappear normal, hearing grossly normal bilaterally Nose - normal and patent, no erythema or discharge Mouth - mucous membranes moist, pharynx appears normal, dental hygiene good and tongue normal Neck - supple, no significant neck masses, carotids upstroke normal bilaterally, no bruits, no JVD Chest - clear to auscultation, no wheezes, rales or rhonchi, symmetric air entry, no tachypnea, retractions or cyanosis Heart - normal rate, regular rhythm, normal S1, S2, no murmurs, rubs, clicks or gallops, no JVD Abdomen - soft, nontender, nondistended, no masses or organomegaly bowel sounds normal Neurological - alert, oriented, normal speech, no focal findings or movement disorder noted Musculoskeletal - no joint tenderness, deformity or swelling, no muscular tenderness noted Extremities - peripheral pulses normal, no pedal edema, no clubbing or cyanosis Skin - normal coloration and turgor, no rashes, no suspicious skin lesions noted ASSESSMENT Coronary artery disease with previous stenting asymptomatic PLAN/RECOMMENDATIONS Continue the regimen of aspirin and atorvastatin he is clinically stable and not having any ischemic symptoms Follow-up 6 months or PRN Gavin Gr MD documented in this encounter Plan of Treatment [...] on stairs Contact your local community or [facility] for information on exercise, fall prevention programs, or options for improving home safety. documented as of this encounter Procedures Procedure Name Priority Date/Time Associated Diagnosis Comments ECG 12-LEAD Routine 11/22/2024 10:06 AM CDT Status post insertion of drug eluting coronary artery stent documented in this encounter Results * ECG 12 lead (11/22/2024 10:06 AM CDT) us Gavin Gr MD ECG ORDERABLES Final Re sult documented in this encounter Visit Diagnoses Diagnosis Status post insertion of drug eluting coronary artery stent- Primary documented in this encounter Discontinued Medications Medication Sig Discontinue Reason Start Date End Da te chlorhexidine (HIBICLENS) 4 % external liquidIndications:Skin Disinfection Apply 1/4 cup to wash cloth and wash from neck down daily for 5 days starting 09/12/24. Use morning of surgery. Avoid nose, mouth, eyes and face. Patient Reported 09/12/2024 11/22/2024 mupirocin (BACTROBAN) 2 % ointmentIndications:Prop hylactic measure Apply pea sized amt in each nostril BID for 5 days starting 09/11/24. Do not use the morning of surgery. Massage nostrils after each application. Patient Reported 09/11/2024 11/22/2024 suzetrigine 50 mg tablet Take 1 tablet (50 mg total) by mouth every 12 (twelve) hours 100 mg (2 tablet) for first dose, and then 50 mg (1 tablet) every 12 hours (start at 12 hours after first dose) Patient Reported 09/16/2024 11/22/2024 documented as of this encounter Care Teams Talent Acquisition Coordinator Relationship Specialty Start Date End Date Stuart Howe DO [address] [place] [address] PCP - General Family Medicine 05/10/21 July Maradiaga MD [address] [place] [address] Consulting Physician Cardiology 03/22/22 Bandar Up DPT [id number] [facility] [address] [facility] [place] [address] Physical Therapist Physical Therapy 06/11/22 Esther Garcia, PT [phone] [facility] [address] [place], [place] [id number] Physical Therapist Physical Therapy 08/13/22 documented as of this encounter
--- NOTE | ~2024-11-23 | XR_ITS ---
EXAMINATION: XR foot RT min 3V, 11/23/2024 11:35 CDT HISTORY: M79.671 - Pain in right foot COMPARISON: No comparisons available. Findings: No acute fracture or malalignment. No significant degenerative changes. Soft tissues unremarkable. Impression: No acute fracture or malalignment. Reviewed, dictated and finalized at location P. Impression: No acute fracture or malalignment.
--- OUTSIDE RECORDS SUMMARY | 2024-11-23 11:54 | XMS_ITS | Encounter Summary ---
Author Organization [employer] Address 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 Gender Identity Not on file Sexual [...] INTERFACE SYSTEM 06/10/2006 1:47 PM CDT Result [facility] Wellington Mendoza MD HEMATOLOGY ORDERABLES Edited Performing Organization Address [facility] Phone Number INTERFACE SYSTEM Refer to clinic/hospital department * TOTAL PROTEIN, CSF (06/10/2006 1:47 PM CDT) PROTEIN, CSF 43 15 - 45 mg/dL INTERFACE SYSTEM 06/10/2006 1:47 PM CDT Wellington Mendoza MD BODY FLUIDS AND STOOLS Edited Performing Organization Address [facility] Phone Number INTERFACE SYSTEM Refer to clinic/hospital [...] FLUIDS AND STOOLS Edited Performing Organization Address [facility] Phone Number INTERFACE SYSTEM Refer to clinic/hospital [...] and non- Americans is available on the [facility] Intranet at: [email or web address] Select: Lab Policies and Procedures Select: Reference Ranges - GFR 06/10/2006 10:3 5 AM CDT us Wellington Mendoza MD CHEMISTRY ORDERABLES Edited Performing Organization Address City[facility]/ZIP Co de Phone Number INTERFACE SYSTEM Refer to clinic/hospital department * HEMOGLOBIN AND HEMATOCRIT (06/10/2006 10:35 AM CDT) HEMOGLOBIN 14.5 13.6 - 16.5 g/dL INTERFACE SYSTEM HEMATOCRIT 42.3 40.0 - 48.0 % INTERFACE SYSTEM 06/10/2006 10:3 5 AM CDT us Wellington Mendoza MD HEMATOLOGY ORDERABLES Edited Performing Organization Address [facility]/State/ZIP Co de Phone Number INTERFACE SYSTEM Refer to clinic/hospital department documented in this encounter Visit Diagnoses Diagnosis Cervicalgia- Primary documented in this encounter Care Teams Plant Anatomy Teacher Relationship Specialty Start Date End Date Ehsan Campos MD [address] [place] [address] PCP - General 01/14/03 documented as of this encounter
--- OUTSIDE RECORDS SUMMARY | 2024-11-23 11:54 | XMS_ITS | Clinical Summary ---
Author Organization [facility] Address [address] [address] Phone Care Team Providers Care Director Of Pharmacy Name Role Phone Ehsan Campos MD Primary Care Provider [phone] Madhav Hodges DO Unavailable Allergies No known active allergies Medications polyethylene [...] 12/03/1995 Zoster Immunization (1 of 2) 12/03/1995 Medicare Initial AWV [id number] 11/25/2011 Respiratory Syncytial Virus (RSV) Immunization (Adult) (1 - 1-dose 75+ series) 2020 Influenza Immunization (#1) 2024 SARS-COV-2 Immunization ( season) 2024 Colonoscopy Discontinued 10/10/2015 Colorectal Cancer Screening Discontinued Cologuard Discontinued Hepatitis B Immunization Aged Out No longer eligible based on patient's age to complete this topic Human Papillomavirus (HPV) Immunization Aged Out No longer eligible b ased on patient's age to complete this topic Immunochemical Fecal Occult Blood Discontinued Meningococcal Immunization (ACWY) Aged Out No longer eligible based on patient's age to complete this topic Rotavirus Immunization Aged Out No lo nger eligible based on patient's age to complete this topic Insurance MEDICARE Care Teams Director Of Pharmacy Relationship Specialty Start Date End Date Ehsan Campos MD [address] [place] [address] PCP - General Family Medicine 10/06/15 Madhav Hodges DO [address] [place] [address] Gastroenterology 10/24/15
--- OUTSIDE RECORDS SUMMARY | 2024-11-23 11:54 | XMS_ITS | Encounter Summary ---
Author Organization [employer] Address 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
--- OUTSIDE RECORDS SUMMARY | 2024-11-23 11:54 | XMS_ITS | Clinical Summary ---
Author Organization [facility] [employer] Address [address] [place] [address] Care Team Providers Care Branch Sales Manager Name Role Phone Del Cid, Cipriano REESE-HOME CARE PROVIDER Primary Care Provider [phone] Source Comments [facility],non-owned Affiliates and Associated Physician Practices is amultiple site organization consisting of ambulatory clinics and hospital sitesin [place], [place], [place] and [place]. This disclosure is being madepursuant to the Care Everywhere program and may not contain all information available regarding this patient. Last updated 17.[facility] [employer] Allergies Active Allergy Reactions Criticality Noted Date [...] or Wheezing 4 Active Additional Information Patient not taking.Reported on 09/29/2024 insulin glargine (Lantus/Semgle e) 100 units/mL pen Inject 38 (thirty eight) Units subcutaneously every morning 4 Active insulin aspart (NovoLOG) pen Inject 0 (zero) Units to 12 (twelve) Units subcutaneously every 6 hours 4 Active atorvastatin (Lipitor) 40 MG tablet 1 (one) tablet by Enteral Tube route at bedtime 4 Active saline nasal spray (Bingham; Baby Highland) 0.65 % nasal spray [place] 2 (two) sprays into each nostril every 4 hours 4 Active Additional Information Patient taking differently:2 spray Each NostrilPRN, Reported on 09/29/2024 folic acid (Folvite) 1 MG tablet 1 (one) tablet by Enteral Tube route once daily 4 Active polyethylene glycol 3350 (Miralax) 17 g packet 17 (seventeen) g by Enteral Tube route 2 times daily 4 Active Additional Information Patient not taking.Reason: Patient adjusted, Reported on 09/29/2024 phenol 1.4 % 2 sprays by Mouth/Throat route every 1 hour as needed 4 Active Additional Information Patient not taking.Reason: Patient adjusted, Reported on 09/29/2024 lansoprazole (Prevacid) 30 MG capsule 1 (one) capsule by Per G Tube route daily before breakfast 4 Active Additional Information Patient not taking.Reported on 09/29/2024 doxazosin (Cardura) 1 MG tablet Take 1 (one) tablet by mouth at bedtime 5 Active metoprolol tartrate IR (Lopressor) 25 MG tablet Take 1 (one) tablet by mouth 2 times daily Active rOPINIRole (Requip) 1 MG tablet Take 1 (one) tablet by mouth once daily Takes 1. 5 mg daily. Active traZODone (Desyrel) 50 MG tablet Take 1 (one) tablet by mouth at bedtime Active clobetasol (Temovate) 0.05 % cream APPLY TOPICALLY TWICE A DAY NEEDED FOR ITCHING FOR 2 WEEK 5 Active nystatin (Mycostatin) 273845 UNIT/ML suspension ADMINISTER 2ML TO EACH CHEEK POUCH EVERY 6 HOURS FOR 10 DAY 5 Active tuberculin PPD (Tubersol) 5 UNIT/0.1ML injection Tuberculin PPD Solution 5 UNIT/0.1ML active 876745 RXNORM 0.1 ml Intradermal every evening shift Routine Inject 0.1 ml intradermally every evening shift every 365 day(s) for Annual TB Monitoring Document administration in immunization tab 12/26/2024 - 5 Active vibegron (Gemtesa) 75 MG tablet Take 1 (one) tablet by mouth once daily 5 Active trospium (Sanctura) 20 MG tablet Take 1 (one) tablet by mouth at bedtime 5 Active triamcinolone acetonide (Kenalog In Orabase) 0.1 % paste Take by mouth once daily 5 Active suzetrigine (Journavx) 50 MG tablet Take 1 (one) tablet by mouth every 12 hours 5 Active traMADol (Ultram) 50 MG tablet Take 1 (one) tablet by mouth every 6 hours as needed Active omeprazole (PriLOSEC) 40 MG capsule Take 1 (one) capsule by mouth once daily Active mupirocin (Bactroban) 2 % ointment Apply to affected area 2 times daily 5 Active metFORMIN ER 24hr (Glucophage XR) 500 MG tablet Take 1 (one) tablet by mouth daily with dinner Active lisinopril (Prinivil; Zestril) 5 MG tablet Take 1 (one) tablet by mouth once daily Active ipratropium (Atrovent) 0.06 % nasal spray [place] 2 (two) sprays into the nose 3 times daily 5 Active HYDROcodone-ac etaminophen ([place]burg) 5-325 MG tablet Take 1 (one) tablet by mouth every 4 hours as needed 5 Active glimepiride (Amaryl) 4 MG tablet Take 1 (one) tablet by mouth daily with breakfast Active gabapentin (Neurontin) 300 MG capsule Take 1 (one) capsule by mouth 3 times daily Active chlorhexidine gluconate (Hibiclens) 4 % solution Apply to affected area once daily 5 Active carvedilol (Coreg) 6.25 MG tablet Take 1 (one) tablet by mouth 2 times daily with morning and evening meal Active baclofen (Lioresal) 10 MG tablet Take 1 (one) tablet by mouth 2 times daily Active albuterol HFA (Proventil; Ventolin; Proair) 108 (90 Base) MCG/ACT inhaler Inhale 1 (one) puff by mouth every 4 hours as needed Active Active Problems Problem Noted Date Diagnosed [...] (05/01/2023): Added automatically from request for surgery [id number] Atherosclerotic heart diseas e of [place] coronary artery without angina pectoris 04/19/2020 05/01/2023 [...] 05/11/2014 05/01/2023 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 05/01/2023 Overview (05/01/2023): Coronary arteriosclerosis in [place] artery Resolved Problems Problem Noted Date Diagnosed Date Resolved Date Bacterial pneumonia 11/18/2023 12/16/19 Fever 11/27/2018 12/11/2018 Encounters Date Type Department Care Team Description 10/20/2024 Travel 09/29/2024 11:00 AM CDT Office Visit [facility] - ENT [address] [place] [phone] Vinicius Avalos MD Bilateral sensorineural hearing loss (Primary Dx); Asymmetric SNHL (sensorineural hearing loss) 09/29/2024 10:00 AM CDT Office Visit [facility] - ENT [address] [place] [phone] Honey Manrique, TREMAINE Presbyphonia (Primary Dx) 09/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 (AF LURIA, FLUZONE TRIVALENT; 6MO+) (IIV3) 12/30/2023,11/24/2014,2013 BCG CORRECTION, HISTORIC VACCINE 01/03/2024,12/27/2023 COVID PFIZER 12+YR 30MCG/0.3mL 12/09/2022 Covid Pfizer primary Monoval ent 12+ yr 0.3ml 06/15/2021 Covid Pfizer primary monoval ent 12+ yr 0.3mL Purple cap 12/21/2020,05/05/2020,04/14/2020 INFLUENZA VACCINE, ADJUVANTE D, QUADR. (FLUAD QUADRIVALENT; 65Y+) (AIIV4) 12/09/2022 INFLUENZA VACCINE, HIGH-DOSE , QUADR. (FLUZONE HIGH-DOSE QUADRIVALENT; 65Y+), 0.7 ML (HD-IIV4) 12/07/2021 INFLUENZA VACCINE, HIGH-DOSE , TRIV. (FLUZONE HIGH-DOSE TRIVALENT; 65Y+) (HD-IIV3) 10/20/2017 PNEUMOCOCCAL PPV VACCINE 06/18/2022 RSV ABRYSVO PREG OR 60y+ 0.5mL 04/20/2024 Zoster Hzv Vacc Recombinant Inj Im 06/23/2024, iNFLUENZA VACCINE, RECOM-MORRELL, QUADR. (FLUBLOCK QUADRIVALENT; 18Y+) [...] and heating? Not hard at all 11/07/2023 [facility] - Occupational Stress [...] on file Legal Sex Male 5:16 PM OUTPATIENT PHYSICAL THERAPIST Gender Identity Not on file Sexual Orientation Not on file Last Filed Vital Signs Vital Sign Reading Time Taken Comments Blood Pressure 147/88 09/29/2024 10:08 AM CDT Pulse 63 09/29/2024 10:08 AM CDT Temperature 37.2 C (99 F) 06/28/2024 2:53 PM CDT Respiratory Rate 20 12/16/2023 3:18 PM CDT Oxygen Saturation 99% 06/28/2024 2:53 PM CDT Inhaled Oxygen Concentration 21% 11/19/2023 8 :48 PM CDT Weight 78 kg (172 lb) 09/29/2024 10:08 AM CDT Height 175.3 cm (5' 9) 09/29/2024 10:08 AM CDT Body Mass Index 25.4 09/29/2024 10:08 AM CDT Plan of Treatment Upcoming Encounters Date Type Department Care Team (Late st Contact Info) Description 01/06/2025 1:45 PM OUTPATIENT PHYSICAL THERAPIST Office Visit [facility] [address] [place] [phone] [place] [address] [place] [address] [place] [place] [address] 03/02/2025 10:00 AM OUTPATIENT PHYSICAL THERAPIST [facility] [address] [place] [phone] Danny Francois, PhD [address] [place] [address] [address] [place] [address] 03/02/2025 10:30 AM OUTPATIENT PHYSICAL THERAPIST Office Visit [facility] - ENT [address] [place] [address], [place] [phone] Vinicius Avalos MD [address] [place] [address] [address] [place] [address] Health Maintenance Due Date Last Done Comments MEDICARE AWV 12 MONTHS 1945 HEPATITIS C SCREENING 11/28/1963 DTAP/TDAP/TD VACCINES (1 - Tdap) 1964 DIABETES RETINOPATHY SCREENING 05/01/2023 DIABETES-FOOT EXAM WITH MONOFILAMENT 05/01/2023 PNEUMOCOCCAL VACCINE 50+ (2 of 2 - PCV) 06/19/2023 06/18/2022 DEPRESSION SCREENING 02/25/2024 DIABETES - URINE PROTEIN SCREENING 02/25/2024 COVID-19 VACCINE ( season) 2024 12/30/2023, 12/09/2022, 06/15/2021, Additional history exists INFLUENZA VACCINE (#1) 2024 , 12/09/2022, 12/07/2021, Additional history exists DIABETES-HGB A1C 03/02/2025 08/30/2024, 11/2024, 11/06/2023, Additional history exists DIABETES-SERUM CREATININE 05/03/20252024, 12/16/2023, 12/14/2023, Additional history exists Respiratory Syncytial Virus (RSV) Vaccine Pt: or over 60 yrs Completed 04/20/2024 ZOSTER VACCINE Completed 06/23/2024, 04/20/2024 HEPATITIS B VACCINE Aged Out No longe [...] this topic Medical Devices Implanted Type Area Gas Fitter Apprentice Device Identifier Shelf Expiration Date Model / Serial / Lot Screw 4mm 38mm Spne Jose Eleazar Ucss Ti Implanted:Qty: 1 on 11/14/2023 by Demetrius Morgan MD at [facility] N/A: Spine Cervical [employer] [id number] / / Screw 4mm 38mm Eleazar Lag Spne Jose Ucss Implanted:Qty: 1 on 11/15/2023 by Demetirus Morgan MD at [facility] N/A: Spine Cervical [employer] [id number] / / Procedures Procedure Name Priority Date/Time Associated Diagnosis Comments COMPREHENSIVE METABOLIC PANEL Routine 12/16/2023 6:56 AM CDT HEMOGLOBIN A1C OSMAR 11/06/2023 4:00 AM CDT from Last 3 Months or Most Recently Relevant to Health Maintenance Results * (ABNORMAL) COMPREHENSIVE METABOLIC PANEL (12/16/2023 6:56 AM CDT) BUN 26 7 - 26 mg/dL 12/16/2023 8:14 AM [facility] Creatinine 0.74 0.71 - 1.16 mg/dL 12/16/2023 8:14 AM [facility] Sodium 139 136 - 145 mmol/L 12/16/2023 8:14 AM [facility] Potassium 3.6 3.5 - 4.5 mmol/L 12/16/2023 8:14 AM [facility] Chloride 100 98 - 107 mmol/L 12/16/2023 8:14 AM [facility] CO2 29 22 - 29 mmol/L 12/16/2023 8:14 AM [facility] Glucose 224(H) 70 - 115 mg/dL 12/16/2023 8:14 AM [facility] Calcium 9.1 8.4 - 10.2 mg/dL 12/16/2023 8:14 AM [facility] Protein Total 6.8 6.0 - 8.3 g/dL 12/16/2023 8:14 AM [facility] Albumin 3.1(L) 3.4 - 5.0 g/dL 12/16/2023 8:14 AM [facility] Bilirubin Total 0.5 0.2 - 1.2 mg/dL 12/16/2023 8:14 AM [facility] Alkaline Phosphatase 96 40 - 150 U/L 12/16/2023 8:14 AM [facility] ALT 38 5 - 55 U/L 12/16/2023 8:14 AM [facility] AST 38(H) 5 - 34 U/L 12/16/2023 8:14 AM [facility] Anion Gap 10 6 - 16 12/16/2023 8:14 AM [facility] BUN/Creatinine Ratio 35(H) 7 - 23 12/16/2023 8:14 AM [facility] Osmolality Calculated 300(H) 275 - 295 mOsm/kg 12/16/2023 8:14 AM [facility] Albumin/Globulin Ratio 0.8(L) 1.1 - 2.3 12/16/2023 8:14 AM [facility] eGFR by CKD-EPI >90 >=90 mL/min/1.7 3 m2 12/16/2023 8:14 AM [facility] Blood BLOOD SPECIMEN / Unknown Lab Venipuncture / Unknown 12/16/2023 6:56 AM CDT 12/16/2023 7:48 AM T us Ananth Murphy PAPER CONSERVATOR-HOME CARE PROVIDER LAB - CHEMISTRY ORDERABL ES Final Result [facility] [address] [place] [phone], [facility] [phone] * (ABNORMAL) HEMOGLOBIN A1C (11/06/2023 4:00 AM CDT) Hemoglobin A1c 7.9(H) <=5.6 % 11/06/2023 9:00 AM [facility] Estimated Average Glucose 180 mg/dL 11/06/2023 9:00 AM T [facility] Comment: HbA1c Interpretation: Normal : < 5.7% Pre-diabetes: 5.7-6.4% Diabetes: Equal to or greater than 6.5% Test results diagnostic of diabetes should be repeated for confirmation. Treatment target values recommended by ADA and other clinical organizations should be used to evaluate metabolic control in patients. Reference: [place] Diabetes Association, Standards of Care in Diabetes [...] LAB - CHEMISTRY ORDERABLES F inal Result [facility] [address] [place] [address], [facility] [phone] from Last 3 Months or Most Recently Relevant to Health Maintenance Additional Health Concerns Infection Onset Date Last Indicated MRSA Hx 11/07/2023 11/07/2023 Insurance MEDICARE [facility] [place] [id number] MEDICARE Advance Directives * Full Code (Latest Code Status on File) Date Activated Date Inactivated Comments 11/04/2023 11:12 PM 12/16/2023 8:27 PM * Full Code Date Activated Date Inactivated Comments 11/28/2018 12:22 AM 12/01/2018 1:00 PM Care Teams Branch Sales Manager Relationship Specialty Start Date End Date Cipriano Del Cid APRN-CNP [address] [place] [address] PCP - General 12/26/22
--- OUTSIDE RECORDS SUMMARY | 2024-11-23 11:54 | XMS_ITS | Encounter Summary ---
Author Organization [facility] Address [address] [place] [address] Care Team Providers Care Daily Sales Audit Clerk Name Role Phone Ehsan Campos MD Primary Care Provider [phone] Encounter Details Date Type Department Care Team (Latest Contact Info) Description 06/22/1999 Outpatient Historical HIS 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
--- OUTSIDE RECORDS SUMMARY | 2024-11-23 11:54 | XMS_ITS | Encounter Summary ---
Author Organization [facility] Address 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 TRAINER Gender Identity Not on file Sexual Orientation [...] OF CARE TESTING Edited Performing Organization Address City/[facility] Co de Phone Number INTERFACE SYSTEM Refer to clinic/hospital department * (ABNORMAL) POC GLUCOSE (06/30/2006 8:12 PM CDT) COMMENT, GLU POC Notified RN INTERFACE SYSTEM GLUCOSE POC 286(H) 65 - 99 mg/dL INTERFACE SYSTEM 06/30/2006 8:12 PM CDT Wellington Mendoza MD POINT OF CARE TESTING Edited Performing Organization Address [facility] de Phone Number INTERFACE SYSTEM Refer to clinic/hospital department * (ABNORMAL) POC GLUCOSE (06/30/2006 5:01 PM CDT) COMMENT, GLU POC Notified RN INTERFACE SYSTEM GLUCOSE POC 227(H) 65 - 99 mg/dL INTERFACE SYSTEM 06/30/2006 5:01 PM CDT Wellington Mendoza MD POINT OF CARE TESTING Edited Performing Organization Address [facility] de Phone Number INTERFACE SYSTEM Refer to clinic/hospital department * (ABNORMAL) POC GLUCOSE (06/30/2006 11:58 AM CDT) COMMENT, GLU POC Notified RN INTERFACE SYSTEM GLUCOSE POC 180(H) 65 - 99 mg/dL INTERFACE SYSTEM 06/30/2006 11:5 8 AM CDT us Wellington Mendoza MD POINT OF CARE TESTING Edited Performing Organization Address City/[facility] Co de Phone Number INTERFACE SYSTEM Refer to clinic/hospital department * (ABNORMAL) POC GLUCOSE (06/30/2006 9:10 AM CDT) GLUCOSE POC 165(H) 65 - 99 mg/dL INTERFACE SYSTEM 06/30/2006 9:10 AM CDT us Wellington Mendoza MD POINT OF CARE TESTING Edited Performing Organization Address [facility] de Phone Number INTERFACE SYSTEM Refer to clinic/hospital department * (ABNORMAL) POC GLUCOSE (06/30/2006 5:56 AM CDT) GLUCOSE POC 138(H) 65 - 99 mg/dL INTERFACE SYSTEM 06/30/2006 5:56 AM CDT us Wellington Mendoza MD POINT OF CARE TESTING Edited Performing Organization Address [facility] de Phone Number INTERFACE SYSTEM Refer [...] and non- Americans is available on the [facility] Intranet at: [email or web address] Select: Lab Policies and Procedures Select: Reference Ranges - GFR 06/27/2006 11:1 7 AM CDT us Wellington Mendoza MD CHEMISTRY ORDERABLES Edited Performing Organization Address [facility] de Phone Number INTERFACE SYSTEM Refer [...] Primary documented in this encounter Care Teams Hoop Maker Machine Relationship Specialty Start Date End Date Ehsan Campos MD [address] [place] [id number] PCP - General 01/14/03 documented as of this encounter
--- OUTSIDE RECORDS SUMMARY | 2024-11-23 11:54 | XMS_ITS | Clinical Summary ---
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 Gender Identity Not on file Sexual Orientation [...] 12/03/1963 DTAP/TDAP/TD VACCINES (1 - Tdap) 1964 RSV VACCINE (60+ or ) (1 - 1-dose 75+ series) 2020 PNEUMOCOCCAL VACCINE 50+ YEA RS (2 of 2 - PCV) 06/19/2023 06/18/2022 DIABETES HBA1C Q 6 MONTHS 05/05/20242023, 11/29/2018, 05/10/2014 INFLUENZA VACCINE (#1) 2024 , 12/09/2022, 12/07/2021, Additional history exists COVID-19 Vaccine ( - 2024-2 6 season) 2024 12/09/2022, 06/15/2021, 12/21/2020, Additional history exists ZOSTER VACCINE Completed 06/23/2024, 04/20/2024 Medical Devices Implanted Type Area Heeler Device Identifier Shelf Expiration Date Model / Serial / Lot Rick Xpdm Crv W/Line 75mm [id number] - [id number] Implanted:Qty : 2 on 05/10/2014 by Alban Boyd MD at [facility] Rick N/A: Spine Lumbar [employer] 5 / / Description:Load 312 April 24 Screw Set Inner 1797-22-000 - [id number] Implanted:Qty : 6 on 05/10/2014 by Alban Boyd MD at [facility] Screw [employer] 0 / / Description:Load 39 2014 Screw Xpdm Fa 6.0x45mm [id number] - [id number] Implanted:Qty : 1 on 05/10/2014 by Alban Boyd MD at [facility] Screw [employer] 5 / / Description:Load 39 April 25, 2014 Screw Xpdm Fa 7.0x45mm [id number] - [id number] Implanted:Qty : 5 on 05/10/2014 by Alban Boyd MD at [facility] Screw [employer] 5 / / Description:Load 39 2014 Sealant Floseal W/ Adptr 10ml [id number] - [id number] Implanted:Qty : 1 on 05/10/2014 by Alban Boyd MD at [facility] Sealant N/A: Back Channel Intellect- LifeLock 07/24/2015 [id number] / / [id number] Sealant Floseal W/ Adptr 10ml [id number] - [id number] Implanted:Qty : 1 on 09/04/2015 by Aixa Tamayo MD at [facility] Sealant N/A: Spine Lumbar Channel Intellect- LifeLock 12/24/2016 [id number] / / [id number] Cross Cnnctr Xpdm Sfx 5.5 Ti [id number]--[id number] - [id number] Implanted:Qty : 1 on 05/10/2014 by Alban Boyd MD at [facility] Spine N/A: Spine Lumbar J[employer]J- [employer] 6 / / Description:Load 311 April Explanted Type Area Heeler Device Identifier Shelf Expiration Date Model / Serial / Lot Screw Xpdm Fa 7.0x45mm [id number] - [id number] Implanted:Alban Morillo MD (Quantity not on file) Explanted:Qty: 1 on 05/10/2014 at [facility] Screw J[employer]J- [employer] [id number] / / Description:Load 39 April 25, 2014 Procedures Procedure Name Priority Date/Time Associated Diagnosis Comments HEMOGLOBIN A1C Add on 05/10/2014 5:32 PM CDT from Last 3 Months or Most Recently Relevant to Health Maintenance Results * (ABNORMAL) HEMOGLOBIN A1C (05/10/2014 5:32 PM CDT) HEMOGLOBIN A1C 6.6(H) 4.1 - 6.1 % of Hgb [facility] EST. AVG GLUCOSE, A1C 143 mg/dL [facility] Comment:Based on the ADAG [facility] equation. Blood 05/10/2014 5:32 PM CDT 05/12/2014 6:49 PM CDT Narrative [facility] [employer] [facility] - 05/12/2014 6:50 PM CDT If not available from last three months us Chang Kidd MD CHEMISTRY ORDERABLES Final Resul t [facility]# [id number] [address] [place] [address] from Last 3 Months or Most Recently Relevant to Health Maintenance Insurance MEDICARE PART A AND B [facility] Advance Directives For more information, please contact: [phone] * Full Code (Latest Code Status on [...] 9:40 AM 05/10/2014 10:26 AM Care Teams School Operations Manager Relationship Specialty Start Date End Date Ehsan Campos MD [address] [place] [address] PCP - General 01/14/03
--- OUTSIDE RECORDS SUMMARY | 2024-11-23 11:54 | XMS_ITS | Encounter Summary ---
Author Organization [employer] Address [address] [place] [address] Care Team Providers Care Twisting Frame Changer Name Role Phone Ehsan Campos MD Primary Care Provider [phone] Encounter Details Date Type Department Care Team (Late st Contact Info) Description 06/27/2006 Outpatient Historical [facility] Support Serv. (Adt Cardiology[facility]) [address] 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
--- OUTSIDE RECORDS SUMMARY | 2024-11-23 11:54 | XMS_ITS | Encounter Summary ---
Author Organization [email or web address] Address 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 Dx) Social History Tobacco Use Types Packs/Day Years Used Date Smoking Tobacco: Never Assessed Sex and Gender Information Value Date Recorded Sex Assigned at Not on file Legal Sex Male 2:57 AM DIRECTOR CORRECTIONAL AGENCY Gender Identity Not on file Sexual Orientation Not on file documented as of this encounter Plan of Treatment Not on file documented as of this encounter Visit Diagnoses Diagnosis Cervical spondylosis without myelopathy- Primary documented in this encounter Care Teams Eyeglass Inspector Relationship Specialty Start Date End Date Ehsan Campos MD [address] [place] [address] PCP - General 01/14/03 documented as of this encounter
--- OUTSIDE RECORDS SUMMARY | 2024-11-23 11:54 | XMS_ITS | Encounter Summary ---
Author Organization [employer] Address [address] [place] [address] Care Team Providers Care Chief Port Director Name Role Phone Ehsan Campos MD Primary Care Provider [phone] Encounter Details Date Type Department Care Team (Late st Contact Info) Description 02/05/[address] [facility] Support [facility] ([facility]) [address] 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
--- OUTSIDE RECORDS SUMMARY | 2024-11-23 11:54 | XMS_ITS | Encounter Summary ---
Author Organization [facility] Address [address] [place] [address] Phone Care Team Providers Care Pressure Sealer And Tester Name Role Phone Stuart Howe DO Primary Care Provider July Maradiaga MD Unavailable Bandar Up DPT Unavailable [phone] Esther Garcia PT Unavailable [phone] Encounter Details Date Type Department Care Team (Late st Contact Info) Description 07/16/2022 Documentation [facility] Medicine Physical Therapy [facility] [address] [facility] [address] [place] [address] [place] [id number] Esther Garcia, PT [address] [facility] [address] [place] [address] Social History Tobacco Use Types [...] on file 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 Gender Identity Male 05/07/2021 12:04 AM CDT Sexual Orientation Straight 06/25/2022 9: 20 AM CDT documented as of this encounter Plan of Treatment Not on file documented as of this encounter Visit Diagnoses Not on filedocumented in this encounter Care Teams Pressure Sealer And Tester Relationship Specialty Start Date End Date Stuart Howe DO [address] [place] [address] PCP - General Family Medicine 05/10/21 July Maradiaga MD [address] [place] [address] Consulting Physician Cardiology 03/22/22 Bandar Up DPT [address] [facility] [place] [address] [place] [phone] Physical Therapist Physical Therapy 06/11/22 Esther Garcia PT [address] [facility] [address] [facility] [place] [address] Physical Therapist Physical Therapy 08/13/22 documented as of this encounter
--- OUTSIDE RECORDS SUMMARY | 2024-11-23 11:54 | XMS_ITS | Clinical Summary ---
Author Organization [facility] Building B Address [address] [place] [address] Care Team Providers Care Engineering Supervisor Name Role Phone Stuart Howe DO Primary Care Provider July Maradiaga MD Unavailable [phone] Bandar Up DPT Unavailable [phone] Esther Garcia PT Unavailable [phone] Allergies Active Allergy Reactions Criticality Noted Date Comments Mirtazapine Other (See comments) High 11/04/2023 Medications aspirin 81 mg enteric coated tabletIndication s:Myocardial Reinfarction Prevention Take 1 tablet (81 mg total) by mouth daily with breakfast Active albuterol HFA (PROVENTIL HFA,VENTOLIN HFA,PROAIR HFA) 90 mcg/actuation inhalerIndicatio ns:Acute Asthma Attack Inhale 2 puffs every 6 (six) hours as needed for wheezing or shortness of breath 08/20/19 22 Active folic acid (FOLVITE) 1 mg tabletIndication s:Supplement Take 1 tablet (1,000 mcg total) by mouth every morning 01/24/20 22 Active acetaminophen (TYLENOL) 500 mg tablet Take 2 tablets (1,000 mg total) by mouth every 6 (six) hours 60 tablet 1 03/29/19 23 Active insulin lispro (HumaLOG, ADMELOG) 100 unit/mL pen for injection 12 - 15 units with meal 5 units for snacks plus 1 for every 40 > 150 - TDD 70 units 30 mL 11 08/20/19 23 Active metoprolol tartrate (LOPRESSOR) 25 mg immediate release tabletIndication s:hypertension Take 0.5 tablets (12.5 mg total) by mouth 2 (two) times a day Active ipratropium-albu teroL (DUO-NEB) 0.5-2.5 mg/3 mL nebulizer solutionIndicati ons:Asthma Inhale 3 mL every 6 (six) hours as needed for wheezing or shortness of breath Pt reports he does not use this 12/16/19 24 Active rOPINIRole (REQUIP) 1 mg tabletIndication s:Restless Legs Syndrome Take 1.5 tablets (1.5 mg total) by mouth every evening Active traZODone (DESYREL) 50 mg tabletIndication s:Sleep Take 1 tablet (50 mg total) by mouth nightly Active doxazosin (CARDURA) 1 mg tabletIndication s:hypertension Take 1 tablet (1 mg total) by mouth every evening 04/09/19 25 Active pen needle, diabetic 32 gauge x 5/32 needleIndication s:Type 2 diabetes mellitus with hyperglycemia, without long-term current use of insulin (HCC) Use as directed with basal, bolus, and correction insulin 5 to 6 times a day. 500 each 3 05/11/19 25 Active ipratropium (ATROVENT) 42 mcg (0.06 %) nasal sprayIndications :Chronic Non-Allergic Rhinitis Administer 2 sprays into each nostril 3 (three) times a day 06/29/19 25 Active trospium (SANCTURA) 20 mg tabletIndication s:Bladder Hyperactivity,In creased Urinary Frequency Take 1 tablet (20 mg total) by mouth nightly 06/29/19 25 Active clobetasoL (TEMOVATE) 0.05 % creamIndications :rash Apply 1 Application topically 2 (two) times a day as needed (rash) 06/09/19 25 Active omeprazole (PriLOSEC) 40 mg capsuleIndicatio ns:GERD Take 1 capsule (40 mg total) by mouth barometers calibrator before breakfast Active atorvastatin (LIPITOR) 40 mg tabletIndication s:hyperlipidemia Take 1 tablet (40 mg total) by mouth every evening 08/31/19 Active insulin glargine (BASAGLAR) 100 unit/mL (3 mL) pen for injectionIndicat ions:Type II Diabetic Inject 20 units under skin daily 15 mL 4 09/15/19 Active HYDROcodone-acet aminophen (NORCO) 5-325 mg per tabletIndication s:Pain Take 1 tablet by mouth every 4 (four) hours as needed for pain 18 tablet 09/17/19 Active Additional Information Patient not taking.Reported on 11/22/2024 chlorhexidine (HIBICLENS) 4 % external liquidIndication s:Skin Disinfection Apply 1/4 cup to wash cloth and wash from neck down daily for 5 days starting 09/12/24. Use morning of surgery. Avoid nose, mouth, eyes and face. 473 mL 09/13/19 025 Discontin ued(Patie nt Reported) mupirocin (BACTROBAN) 2 % ointmentIndicati ons:Prophylactic measure Apply pea sized amt in each nostril BID for 5 days starting 09/11/24. Do not use the morning of surgery. Massage nostrils after each application. 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 Hip pain 04/18/2022 Moderate malnutrition 04/16/2022 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 Overview (03/22/2022): Added automatically from request for surgery [id number] Essential (primary) hypertension 04/19/2020 Chronic back pain 04/19/2020 Mixed hyperlipidemia 05/11/2014 Sleep apnea 05/11/2014 Spinal stenosis 05/11/2014 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 Overview (04/18/2022): Coronary arteriosclerosis in [place] artery Type 2 diabetes mellitus wit h hyperglycemia, with long-term current use of insulin On methylprednisolone therapy IgA deficiency IgM deficiency Persistent 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 complication Encounters Date Type Department Care Team Description 11/22/2024 10:15 AM CDT Office Visit [facility] Cardiology at [address] [place] [phone] Gavin Gr MD Status post insertion of drug eluting coronary artery stent (Primary Dx) 09/23/2024 2:48 PM CDT - 09/23/2024 11:59 PM CDT Hospital Encounter [facility] at [facility] [address] [address], [address] Elian Arnold [place] [phone] Unruly Desai MD Chronic painful diabetic neuropathy (HCC) (Primary Dx) Discharge Disposition: Discharge to home or self care 09/16/2024 12:42 PM CDT Anesthesia Event [facility] Operating Room [address]20 [address] [place] [address] Sandy Wayne DO Beardsley, Allison Marie, NP 09/16/2024 12:30 PM CDT - 09/16/2024 4:10 PM CDT Surgery [facility] Operating Room [address] [address] [place] [address] Micheal Blanco MD PhD INSERTION SPINAL CORD STIMULATOR 09/16/2024 6:56 AM CDT - 09/16/2024 4:55 PM CDT Hospital Encounter [facility] Operating Room [address] [address] [place] [address] Micheal Blanco MD PhD Chronic painful diabetic neuropathy (HCC) [E11.40] (Primary Dx) Discharge Disposition: Discharge to home or self care 09/13/2024 Telephone [facility] [id number] [place] [address] Jeovany Echevarria MD PhD 09/10/2024 Telephone [facility]ology [address] [place] [address] [place] [phone] Laurel Lancaster RN 09/06/2024 Telephone [facility] at [address], [address] [place] [address] Micheal Blanco MD PhD SCS trial f/u 09/02/2024 3:30 PM CDT Lab 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) 09/02/2024 12:40 PM CDT Lab [facility] ([facility]) [address] [place] [phone] Type 2 diabetes mellitus with hyperglycemia, with long-term current use of insulin (HCC); Mixed hyperlipidemia 08/31/2024 Telephone [facility] at [address], [address] [place] [address] Micheal Blanco MD PhD SCS implant scheduled 08/30/2024 1:55 PM CDT Lab [facility] ([facility]) [address] [place] [phone] Type 2 diabetes mellitus with hyperglycemia, with long-term current use of insulin (HCC); Other specified disorders of bone density and structure, unspecified site 08/30/2024 11:00 AM CDT Office Visit [facility] Medicine Endocrinology Metabolism and Lipid [address] [place] [address] [place] [address] Bety Horton NP Type 2 diabetes mellitus with hyperglycemia, with long-term current use of insulin (HCC) (Primary Dx); Mixed hyperlipidemia; Other specified disorders of bone density and structure, unspecified site 08/30/2024 Results Follow-Up [facility] Endocrinology Metabolism and Lipid [address] [place] [address] [place] [address] Bety Horton NP Albumin Creatinine Ratio, Urine, CBC with auto differential, Comprehensive metabolic panel, Additional followed-up results: 5 08/30/2024 Orders Only [facility] Endocrinology Metabolism and Lipid [address] [place] [address] [place] [address] Cipriano Del Cid NP from Last 3 Months Immunizations Immunization Administration Dates Next Due Pneumococcal Polysaccharide PPV23 06/18/2022 Surgical History Surgery Date Site/Laterality Comments BACK SURGERY 05/10/2014 x6, most recent = spinal fusion L3-5 posterior NECK SURGERY 11/25/2023 - 12/25/2023 HERNIA REPAIR 02/24/1970 - 02/23/1971 CARDIAC STENT PLACEMENT 02/24/2019 - 02/24/2020 x3 SINUS SURGERY x3 CHOLECYSTECTOMY 02/24/1985 - 02/23/1986 HAND SURGERY Bilateral unknown dates; trigger finger and carpal tunnel LUMBAR FUSION 02/24/2014 - 02/23/2015 3-5 MICRODISCECTOMY 02/24/2015 - 02/24/2016 L2-4 VASECTOMY 04/08/1977 FLUORO GUIDED ASPIRATION OR INJECTION INTERMEDIATE JOINT RIGHT 07/29/2024 Right Shoulder COLONOSCOPY 10/10/2015 BIOPSY 03/29/2022 Biopsy sural nerve with allograft reconstruction OTHER SURGICAL HISTORY 05/05/2023 Drug enduced sleep endoscopy OTHER SURGICAL HISTORY 11/14/2023 Odontoid screw placed for C2 fracture ESOPHAGOGASTRODUODENOSCOPY 12/05/2023 Medical History Medical History Date Comments Hypertension Hypertension Hx Other Medical Diabetes Type I I Myocardial infarction (HCC) Hypercholesteremia Diabetes mellitus Gastric reflux Kidney stone Obstructive sleep apnea Does not tolerate CPAP Asthma GERD (gastroesophageal reflux disease) Type 2 diabetes mellitus 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 Hypertriglyceridemia Left-sided sensorineural hearing loss Arthritis Postoperative delirium for 4 mon ths per patient s/p cervical surgery 2023 Coronary artery disease Family History Medical History Relation Name Comments [...] 10 Q uit: 02/25/1964 Smokeless Tobacco: Never Tobacco [...] on file Legal Sex Male 6:01 PM [employer] Gender Identity Male 05/07/2021 12:04 AM CDT Sexual Orientation Straight 06/25/2022 9: 20 AM CDT Obstetrics History Last Filed Vital Signs Vital Sign Reading Time Taken Comments Blood Pressure 142/70 11/22/2024 10:01 AM CDT Pulse 67 11/22/2024 10:01 AM CDT Temperature 36.2 C (97.2 F) 09/23/2024 2:51 PM CDT Respiratory Rate 18 09/23/2024 2:51 PM CDT Oxygen Saturation 98% 11/22/2024 10:01 AM CDT Inhaled Oxygen Concentration - - Weight 78.7 kg (173 lb 6.4 oz) 11/22/2024 10:01 AM CDT Height 175.3 cm (5' 9) 11/22/2024 10:01 AM CDT Body Mass Index 25.61 11/22/2024 10:01 AM CDT Plan of Treatment Health Maintenance Due Date Last Done Comments Hepatitis C Screening 1945 Dilated Eye Exam 1945 Foot Exam 1945 Hepatitis B Screening 12/03/1963 DTaP/Tdap/Td Vaccine (1 - Tdap) 11/21/2007 8, 02/27/1996 Well Visit 65+ 2010 Depression Screening 04/09/2023 04/09/2022 Covid-19 Vaccine (5 - 2024-2 6 season) 2024 12/30/2023, 12/21/2020, 05/05/2020, Additional history exists Influenza Vaccine (#1) 2024 , 11/30/2021, 12/08/2018, Additional history exists Hemoglobin A1C 03/02/2025 08/30/2024, 03/1 , 11/06/2023, Additional history exists Albumin Creatinine Ratio, Urine 08/30/2025 , 04/28/2023 eGFR 08/30/2025 08/30/2024, 03/0 05/2023, 06/06/2022, Additional history exists Lipid Panel 09/02/2025 09/02/2024, 03/0 05/2023, 04/15/2022, Additional history exists Fall Risk Assessment 09/16/2025 09/16/2024, 08/05/2024, 07/29/2024, Additional history exists Pneumococcal vaccine 65+ Completed 023, 06/14/2014, 12/05/2006 Abdominal Aortic Aneurysm (A AA) Screen Completed 11/04/2023 Zoster Vaccine Completed 06/23/2024, 03/28, 03/03/2009 Goals Goal Patient Goal Type Associated Problems Recent Progress Patient-Stated? Author CCM Chronic Pain Care Plan Chronic Care Management No Eloisa Murphy, RN Note: Problem: Chronic Pain Goals: 1. [...] home safety. Medical Devices Implanted Type Area Extractor Filler Device Identifier Shelf Expiration Date Model / Serial / Lot Stent Implanted:Qty: 3 Stent N/A: Heart Axogen Inc Advance 3-4mm 50mm Allograft Graft Nerve Sterile [id number] - [id number] - [id number] Implanted:Qty: 1 on 03/29/2022 by Jacquie Sol MD at [facility] Left: Leg Axogen Inc 05/24/2024 [id number] / [id number] / [id number] zerobound Medical Inc Weck Horizon Ligate Triangulate Cross Section Wire Small Wide Latex Free [id number] - [id number] Implanted:Qty: 2 on 03/29/2022 by Jacquie Sol MD at [facility] Left: Leg Teleflex Medical Inc 09/28/2026 [id number] / / Medtronic Inc Kit Lead Neurostimulator Percutaneous Spine 1x8 Electrode Compact Vectris Surescan Titanium 60cm [id number] - [id number] Implanted:Qty: 1 on 07/29/2024 by Micheal Blanco MD PhD at [facility] Building 4 Medtronic Inc 07/05/2028 [id number] / / [id number] Medtronic Inc Kit Lead Neurostimulator Percutaneous Spine 1x8 Electrode Compact Vectris Surescan Titanium 60cm [id number] - [id number] Implanted:Qty: 1 on 07/29/2024 by Micheal Blanco MD PhD at [facility] Building 4 Medtronic Inc 07/05/2028 [id number] / / [id number] Medtronic Inc Generator Pulse Inceptiv Sys Stm Electrcl Analges Implant [id number] - [id number] Implanted:Qty: 1 on 09/16/2024 at [facility] Right: Back Medtronic Inc 07/07/2025 [id number] / [id number] / Dwyer Vascular Multi-Link 8 Ll Od4 Mm L38 Mm L143 Cm Rapid Exchange Reinforce H [id number] - [id number] Implanted:Qty: 1 on 09/16/2024 by Micheal Blanco MD PhD at [facility] Left: Spine Thoracic Dwyer Vascular [id number] / / Medtronic Inc Envelope Absrb 2.7x2.5in Antibacterial Tyrx Medium Strl [id number] - [id number] Implanted:Qty: 1 on 09/16/2024 at [facility] Right: Back Medtronic Inc 04/29/2025 [id number] / / [id number] Medtronic Inc Vectris 5mm 60cm 1x8 Electrode Mri Lead Neurostimulator [id number] - [id number] Implanted:Qty: 1 on 09/16/2024 at [facility] Left: Back Medtronic Inc 07/29/2028 [id number] / [id number] / Medtronic Inc Vectris 5mm 60cm 1x8 Electrode Mri Lead Neurostimulator [id number] - [id number] Implanted:Qty: 1 on 09/16/2024 at [facility] Right: Back Medtronic Inc 08/10/2028 [id number] / [id number] / Procedures Procedure Name Priority Date/Time Associated Diagnosis Comments ECG 12-LEAD Routine 11/22/2024 10:06 AM CDT Status post insertion of drug eluting coronary artery stent POCT GLUCOSE DEVICE Routine 09/16/2024 3:28 PM CDT FL FLUOROSCOPY < 1 HOUR IP Routine 09/16/2024 3:13 PM CDT POCT GLUCOSE DEVICE Routine 09/16/2024 2:50 PM CDT INSERTION SPINAL CORD STIMULATOR 09/16/2024 12:47 PM CDT Neuralgia and neuritis, unspecified Case Notes Patient is scheduled to have a SCS implant with Medtronic. We will contact rep to bring necessary equipment.RNFAMedtronicAntiobiotic PouchProvena Special Needs Patient is scheduled to have a SCS implant with Medtronic. We will contact rep to bring necessary equipment. POCT GLUCOSE DEVICE Routine 09/16/2024 12:44 PM CDT POCT GLUCOSE DEVICE Routine 09/16/2024 11:44 AM CDT POCT GLUCOSE DEVICE Routine 09/16/2024 10:32 AM CDT POCT GLUCOSE DEVICE Routine 09/16/2024 9:26 AM CDT POCT GLUCOSE DEVICE Routine 09/16/2024 8:22 AM CDT PROTEIN ELECTROPHORESIS, WITH REFLEX, SERUM Routine 09/02/2024 4:40 PM CDT Hypogammaglobulinem ia IMMUNOGLOBULIN PROFILE Routine 09/02/2024 3:27 PM CDT Hypogammaglobulinem ia IGE Routine 09/02/2024 3:27 PM CDT Hypogammaglobulinem ia LYMPHOCYTE SUBPOPULATION 10 Routine 09/02/2024 3:27 PM CDT Hypogammaglobulinem ia ALLERGEN BIRCH COMMON SILVER (TREE) IGE Routine 09/02/2024 3:27 PM CDT Non-seasonal allergic rhinitis due to other allergic trigger ALLERGEN ELM (TREE) IGE Routine 09/02/2024 3:27 PM CDT Non-seasonal allergic rhinitis due to other allergic trigger ALLERGEN MAPLE/BOX ELDER (TREE) IGE Routine 09/02/2024 3:27 PM CDT Non-seasonal allergic rhinitis due to other allergic trigger ALLERGEN MOUNTAIN JUNIPER (TREE) IGE Routine 09/02/2024 3:27 PM CDT Non-seasonal allergic rhinitis due to other allergic trigger ALLERGEN MULBERRY (TREE) IGE Routine 09/02/2024 3:27 PM CDT Non-seasonal allergic rhinitis due to other allergic trigger ALLERGEN OAK RED (TREE) IGE Routine 09/02/2024 3:27 PM CDT Non-seasonal allergic rhinitis due to other allergic trigger ALLERGEN SYCAMORE QATARI (TREE) IGE Routine 09/02/2024 3:27 PM CDT Non-seasonal allergic rhinitis due to other allergic trigger ALLERGEN WALNUT (TREE) IGE Routine 09/02/2024 3:27 PM CDT Non-seasonal allergic rhinitis due to other allergic trigger ALLERGEN BERMUDA GRASS (GRASS) IGE Routine 09/02/2024 3:27 PM CDT Non-seasonal allergic rhinitis due to other allergic trigger ALLERGEN RUI GRASS (GRASS) IGE Routine 09/02/2024 3:27 PM CDT Non-seasonal allergic rhinitis due to other allergic trigger ALLERGEN VICTOR HUGO GRASS (GRASS) IGE Routine 09/02/2024 3:27 PM CDT Non-seasonal allergic rhinitis due to other allergic trigger ALLERGEN PLANTAIN FRISIAN (WEED) IGE Routine 09/02/2024 3:27 PM CDT Non-seasonal allergic rhinitis due to other allergic trigger ALLERGEN LANCASTER'S QUARTER (WEED) IGE Routine 09/02/2024 3:27 PM CDT Non-seasonal allergic rhinitis due to other allergic trigger ALLERGEN PIGWEED ROUGH (WEED) IGE Routine 09/02/2024 3:27 PM CDT Non-seasonal allergic rhinitis due to other allergic trigger ALLERGEN RAGWEED SHORT/COMMON (WEED) IGE Routine 09/02/2024 3:27 PM CDT Non-seasonal allergic rhinitis due to other allergic trigger ALLERGEN NETTLE (WEED) IGE Routine 09/02/2024 3:27 PM CDT Non-seasonal allergic rhinitis due to other allergic trigger ALLERGEN ALTERNARIA TENUIS (MOLD) IGE Routine 09/02/2024 3:27 PM CDT Non-seasonal allergic rhinitis due to other allergic trigger ALLERGEN ASPERGILLUS FUMIGATUS (MOLD) IGE Routine 09/02/2024 3:27 PM CDT Non-seasonal allergic rhinitis due to other allergic trigger ALLERGEN CLADOSPORIUM HERBARUM (MOLD) IGE Routine 09/02/2024 3:27 PM CDT Non-seasonal allergic rhinitis due to other allergic trigger ALLERGEN PENICILLIUM CHRYSOGENUM (MOLD) IGE Routine 09/02/2024 3:27 PM CDT Non-seasonal allergic rhinitis due to other allergic trigger ALLERGEN EPITHELIA/DANDER CAT (ANIMAL) IGE Routine 09/02/2024 3:27 PM CDT Non-seasonal allergic rhinitis due to other allergic trigger ALLERGEN COCKROACH QATARI (INSECT) IGE Routine 09/02/2024 3:27 PM CDT Non-seasonal allergic rhinitis due to other allergic trigger ALLERGEN DERMATOPHAGOIDES FARINAE (INSECT) IGE Routine 09/02/2024 3:27 PM CDT Non-seasonal allergic rhinitis due to other allergic trigger ALLERGEN DERMATOPHAGOIDES PTERONYSSINUS (INSECT) IGE Routine 09/02/2024 3:27 PM CDT Non-seasonal allergic rhinitis due to other allergic trigger ALLERGEN EPITHELIA/DANDER DOG (ANIMAL) IGE Routine 09/02/2024 3:27 PM CDT Non-seasonal allergic rhinitis due to other allergic trigger ALLERGEN MOUSE MIX (ANIMAL) IGE Routine 09/02/2024 3:27 PM CDT Non-seasonal allergic rhinitis due to other allergic trigger ALLERGEN RAT MIX (ANIMAL) IGE Routine 09/02/2024 3:27 PM CDT Non-seasonal allergic rhinitis due to other allergic trigger LIPID PANEL Routine 09/02/2024 10:56 AM CDT Type 2 diabetes mellitus with hyperglycemia, with long-term current use of insulin (HCC) Mixed hyperlipidemia DEXA AXIAL SKELETON BONE DENSITY 1 OR MORE SITES Schedule Routine, Read Routine (OP Routine) 08/30/2024 1:10 PM CDT EGFR Routine 08/30/2024 12:24 PM CDT Type 2 diabetes mellitus with hyperglycemia, with long-term current use of insulin (HCC) DIFFERENTIAL AUTO Routine 08/30/2024 12:24 PM CDT Type 2 diabetes mellitus with hyperglycemia, with long-term current use of insulin (HCC) THYROID FUNCTION CASCADE Routine 08/30/2024 12:24 PM CDT Type 2 diabetes mellitus with hyperglycemia, with long-term current use of insulin (HCC) VITAMIN D 25 HYDROXY Routine 08/30/2024 12:24 PM CDT Type 2 diabetes mellitus with hyperglycemia, with long-term current use of insulin (HCC) Other specified disorders of bone density and structure, unspecified site COMPREHENSIVE METABOLIC PANEL Routine 08/30/2024 12:24 PM CDT Type 2 diabetes mellitus with hyperglycemia, with long-term current use of insulin (HCC) CBC WITH AUTO DIFFERENTIAL Routine 08/30/2024 12:24 PM CDT Type 2 diabetes mellitus with hyperglycemia, with long-term current use of insulin (HCC) ALBUMIN CREATININE RATIO, URINE Routine 08/30/2024 12:24 PM CDT Type 2 diabetes mellitus with hyperglycemia, with long-term current use of insulin ([facility]) POCT HEMOGLOBIN A1C Routine 08/30/2024 10:55 AM CDT Type 2 diabetes mellitus with hyperglycemia, with long-term current use of insulin ([facility]) POCT GLUCOSE Routine 08/30/2024 10:55 AM CDT Type 2 diabetes mellitus with hyperglycemia, with long-term current use of insulin ([facility]) from Last 3 Months Results * ECG 12 lead (11/22/2024 10:06 AM CDT) us Gavin Gr MD ECG ORDERABLES Final Re sult * POCT glucose (09/16/2024 3:28 PM CDT) [facility] Glucose, POC 182 70 - 199 mg/dL Comment: Interpretive Data Glucose is assumed to be non-fasting. Fasting Glucose reference ranges are: 0 - 150 years: 70 mg/dL - 99 mg/dL Current interpretive data was last revised on 2013. POC Performer [id number] MERC[employer] SLOANWCH POC Device Number [id number] [facility] SLOANWCH Blood 09/16/2024 3:28 PM CDT 09/16/2024 3:28 PM CDT us Micheal Blanco MD PhD LAB POCT ERASMO DECKER - DEVICE Final Result MERCEDEZ SLOANWCH [id number] [facility] [place] [address] * FL Fluoroscopy < 1 Hour (09/16/2024 3:13 PM CDT) Narrative CESAR_[facility] - 09/16/2024 3:13 PM CDT The images from this study are not interpreted by Radiology. Please refer to the physician's procedure / OR operative note. Micheal Blanco MD PhD IMG FLUOROSCO PY PROCEDURES Final Result Performing Organization Address City/[facility]/ZIP Co de Phone Number [email or web address] * POCT glucose (09/16/2024 2:50 PM CDT) Glucose, POC 152 70 - 199 mg/dL Comment: Interpretive Data Glucose is assumed to be non-fasting. Fasting Glucose reference ranges are: 0 - 150 years: 70 mg/dL - 99 mg/dL Current interpretive data was last revised on 2013. POC Performer [id number] [employer] POC Device Number [id number] [facility] Blood 09/16/2024 2:50 PM CDT 09/16/2024 2:50 PM CDT Micheal Blanco MD PhD LAB POCT ORDE RABLES - DEVICE Final Result Performing Organization Address [facility]/ZIP Co de Phone Number [facility] UrbanosCH [address] [facility] [place] [address] * POCT glucose (09/16/2024 12:44 PM CDT) Glucose, POC 138 70 - 199 mg/dL Comment: Interpretive Data Glucose is assumed to be non-fasting. Fasting Glucose reference ranges are: 0 - 150 years: 70 mg/dL - 99 mg/dL Current interpretive data was last revised on 2013. POC Performer [id number] [employer]ishing [employer] POC Device Number [id number] [facility] Blood 09/16/2024 12:4 4 PM CDT 09/16/2024 12:44 PM CDT Micheal Blanco MD PhD LAB POCT ORDAndrade RABJODY - DEVICE Final Result Performing Organization Address [facility] de Phone Number MERCEDEZ ESCOBARCH [id number] [facility] [place] [address] * POCT glucose (09/16/2024 11:44 AM CDT) Glucose, POC 147 70 - 199 mg/dL Comment: Interpretive Data Glucose is assumed to be non-fasting. Fasting Glucose reference ranges are: 0 - 150 years: 70 mg/dL - 99 mg/dL Current interpretive data was last revised on 2013. POC Performer [id number] CERCHRISTIANO Mensajeros [employer] POC Device Number [id number] CERCHRISTIANO SLOANWCH Blood 09/16/2024 11:4 4 AM CDT 09/16/2024 11:44 AM CDT Micheal Blanco MD PhD LAB POCT ERASMO DECKER - DEVICE Final Result Performing Organization Address [facility] Phone Number MERCEDEZ ESCOBARCH [address] [facility] [place] [address] * POCT glucose (09/16/2024 10:32 AM CDT) Glucose, POC 152 70 - 199 mg/dL Comment: Interpretive Data Glucose is assumed to be non-fasting. Fasting Glucose reference ranges are: 0 - 150 years: 70 mg/dL - 99 mg/dL Current interpretive data was last revised on 2013. POC Performer [id number] CERCHRISTIANO Mensajeros UrbanosWCH POC Device Number [id number] CERNER NATHALIAWCH Blood 09/16/2024 10:3 2 AM CDT 09/16/2024 10:32 AM CDT Micheal Blanco MD PhD LAB POCT ORDE RABLES - DEVICE Final Result Performing Organization Address [facility] de Phone Number MERCEDEZ BJWCH [address] [facility] [place] [address] * POCT glucose (09/16/2024 9:26 AM CDT) Glucose, POC 148 70 - 199 mg/dL Comment: Interpretive Data Glucose is assumed to be non-fasting. Fasting Glucose reference ranges are: 0 - 150 years: 70 mg/dL - 99 mg/dL Current interpretive data was last revised on 2013. POC Performer [id number] CERNER Vedicis POC Device Number [id number] CERNER Mensajeros UrbanosWCH Blood 09/16/2024 9:26 AM CDT 09/16/2024 9:26 AM CDT Micheal Blanco MD PhD LAB POCT ORDE RABLES - DEVICE Final Result Performing Organization Address [facility] Phone Number MERCEDEZ BJWCH [address] [address] [facility] [place] [address] * POCT glucose (09/16/2024 8:22 AM CDT) Glucose, POC 155 70 - 199 mg/dL Comment: Interpretive Data Glucose is assumed to be non-fasting. Fasting Glucose reference ranges are: 0 - 150 years: 70 mg/dL - 99 mg/dL Current interpretive data was last revised on 2013. POC Performer [id number] CERNER Mensajeros [employer] POC Device Number [id number] CERNER Mensajeros UrbanosWCH Blood 09/16/2024 8:22 AM CDT 09/16/2024 8:22 AM CDT Micheal Blanco MD PhD LAB POCT ORDE RABLES - DEVICE Final Result Performing Organization Address [facility] de Phone Number [facility] BJWCH [address] [facility]. [facility] [place] [address] * Protein electrophoresis with reflex, serum with interpretation (09/02/2024 4:40 PM CDT) [facility] Protein, sr 6.9 6.2 - 8.2 g/dL Albumin 3.8 3.2 - 5.0 g/dL [facility] Alpha-1 globulin 0.3 0.2 - 0.4 g/dL [facility] Alpha-2 globulin 0.9 0.5 - 1.0 g/dL [facility] Beta-1 globulin 0.4 0.3 - 0.6 g/dL [facility] Beta-2 globulin 0.3 0.2 - 0.6 g/dL [facility] Gamma globulin 1.2 0.5 - 1.7 g/dL [facility] SPEP interp Please see comment [facility] Comment: No apparent monoclonal peak Reviewed and signed by Madhav Wilder MD, PhD 09/03/2024 Blood 09/02/2024 4:40 PM CDT 09/02/2024 6:31 PM CDT Jeovany Echevarria MD PhD LAB BLOOD ORDERABLES Final Result [facility] [place] [address] * Allergen Rat mix (animal) IgE (09/02/2024 3:27 PM CDT) [facility] Rat mix IgE See Comment 0.00 - 0.34 Comment:Credited, quantity n ot sufficient. Blood 09/02/2024 3:27 PM CDT 09/02/2024 6:32 PM CDT Jeovany Echevarria MD PhD LAB BLOOD ORDERABLES Final Result [facility] [place] [address] * Allergen Mouse mix (animal) IgE (09/02/2024 3:27 PM CDT) Pathologist [facility] Mouse mix IgE See Comment 0.00 - 0.34 Comment:Credited, quantity n ot sufficient. Blood 09/02/2024 3:27 PM CDT 09/02/2024 6:32 PM CDT Jeovany Echevarria MD PhD LAB BLOOD ORDERABLES Final Result [facility] [place] [address] * (ABNORMAL) Lymphocyte Subpopulation 10 (09/02/2024 3:27 PM CDT) [facility] WBC 6.41 3.80 - 9.90 K/cumm Lymphocyte pct 23.4 20.0 - 54.3 % [facility] Lymphocyte abs 1,500 /cumm [facility] CD3 pct 81 60 - 88 % [facility] CD3 abs 1,215 661 - 1,963 cells/mcL [facility] CD4 pct 31 31 - 64 % [facility] CD4 abs 465 365 - 1,294 cells/mcL [facility] CD8 pct 45(H) 12 - 40 % [facility] CD8 abs 675 187 - 781 cells/mcL [facility] CD19 pct 6 6 - 25 % [facility] CD19 abs 90 86 - 488 cells/mcL [facility] [id number] pct 10 5 - 25 % [facility] [id number] abs 150 76 - 467 cells/mcL [facility] HLA-DR pct 12 % [facility] HLA-DR abs 180 /cumm [facility] CD3 HLA-DR pct 3 % [facility] CD3 HLA-DR abs 45 /cumm [facility] TCR alpha/beta pct 77 % [facility] TCR alpha/beta abs 1,155 /cumm [facility] DNTs pct 1 % [facility] DNTs abs 12 /cumm [facility] CD4 CD45RA pct 20 3 - 59 % [facility] CD4 CD45RA abs 93 27 - 833 cells/mcL [facility] CD4 CD45RO pct 80(H) 15 - 69 % [facility] CD4 CD45RO abs 372 167 - 670 cells/mcL [facility] CD8 CD45RA pct 73 6 - 84 % [facility] CD8 CD45RA abs 493 19 - 508 cells/mcL [facility] CD8 CD45RO pct 27 4 - 49 % [facility] CD8 CD45RO abs 182 15 - 275 cells/mcL [facility] CD4/CD8 ratio 0.7 [facility] Blood 09/02/2024 3:27 PM CDT 09/02/2024 6:27 PM CDT Narrative [facility] - 09/02/2024 9:55 PM CDT This test was developed and its performance characteristics determined by the [facility]. It has not been cleared or approved by the US Food and Drug Administration. This test is used for clinical purposes. It should not be regarded as investigational or for research. This laboratory is certified under the Clinical Laboratory Improvement Amendments (CLIA) as qualified to perform high complexity clinical laboratory testing. If reference ranges are not populated, there is no established reference range for that parameter for the patient s age. us Jeovany Echevarria MD PhD LAB BLOOD ORDERABLES Final Result Performing Organization Address City/[facility]/ZIP Co de Phone Number [facility] Department [place] [address] * (ABNORMAL) Immunoglobulin profile (09/02/2024 3:27 PM CDT) [facility] Immunoglobulin G 1,359 700 - 1,600 mg/dL Immunoglobulin A <5(L) 70 - 400 mg/dL [facility] Immunoglobulin M <25(L) 40 - 230 mg/dL [facility] Blood 09/02/2024 3:27 PM CDT 09/02/2024 6:23 PM CDT us Jeovany Echevarria MD PhD LAB BLOOD ORDERABLES Final Result [facility] Department [place] [address] * Allergen Penicillium chrysogenum (mold) IgE (09/02/2024 3:27 PM CDT) Penicillium chrysogenum IgE <0.10 0.00 - 0.34 kUnits/L Blood 09/02/2024 3:27 PM CDT 09/02/2024 6:32 PM CDT us Jeovany Echevarria MD PhD LAB BLOOD ORDERABLES Final Result Performing Organization Address [facility] Co de Phone Number [facility] [place] [address] * Allergen [place] (tree) IgE (09/02/2024 3:27 PM CDT) [place] IgE <0.10 0.00 - 0.34 kUnits/L Blood 09/02/2024 3:27 PM CDT 09/02/2024 6:32 PM CDT us Jeovany Echevarria MD PhD LAB BLOOD ORDERABLES Final Result Performing Organization Address [facility] de Phone Number [facility] [place] [address] * Allergen Mountain juniper (tree) IgE (09/02/2024 3:27 PM CDT) Mountain juniper IgE <0.10 0.00 - 0.34 kUnits/L Blood 09/02/2024 3:27 PM CDT 09/02/2024 6:32 PM CDT us Jeovany Echevarria MD PhD LAB BLOOD ORDERABLES Final Result Performing Organization Address City/[facility] Co de Phone Number [facility] [place] [address] * Allergen Bermuda grass (grass) IgE (09/02/2024 3:27 PM CDT) Bermuda grass IgE <0.10 0.00 - 0.34 kUnits/L Blood 09/02/2024 3:27 PM CDT 09/02/2024 6:32 PM CDT us Jeovany Echevarria MD PhD LAB BLOOD ORDERABLES Final Result Performing Organization Address [facility] Co de Phone Number [facility] [place] [address] * Allergen Plantain turkish (weed) IgE (09/02/2024 3:27 PM CDT) Plantain turkish IgE <0.10 0.00 - 0.34 kUnits/L Blood 09/02/2024 3:27 PM CDT 09/02/2024 6:32 PM CDT us Jeovany Echvearria MD PhD LAB BLOOD ORDERABLES Final Result Performing Organization Address [facility] Co de Phone Number [facility] [place] [address] * Allergen Elm (tree) IgE (09/02/2024 3:27 PM CDT) Elm IgE <0.10 0.00 - 0.34 kUnits/L Blood 09/02/2024 3:27 PM CDT 09/02/2024 6:32 PM CDT us Jeovany Echevarria MD PhD LAB BLOOD ORDERABLES Final Result Performing Organization Address [facility] [place] [address] * Allergen Cladosporium herbarum (mold) IgE (09/02/2024 3:27 PM CDT) Cladosporium herbarum IgE <0.10 0.00 - 0.34 kUnits/L Blood 09/02/2024 3:27 PM CDT 09/02/2024 6:32 PM CDT us Jeovany Echevarria MD PhD LAB BLOOD ORDERABLES Final Result Performing Organization Address [facility] Co de Phone Number [facility] [place] [address] * Allergen Birch common silver (tree) IgE (09/02/2024 3:27 PM CDT) Birch common silver IgE <0.10 0.00 - 0.34 kUnits/L Blood 09/02/2024 3:27 PM CDT 09/02/2024 6:32 PM CDT us Jeovany Echevarria MD PhD LAB BLOOD ORDERABLES Final Result Performing Organization Address [facility] Co de Phone Number [facility] Department [place] [address] * Allergen Alternaria tenuis (mold) IgE (09/02/2024 3:27 PM CDT) Alternaria tenius IgE <0.10 0.00 - 0.34 kUnits/L Blood 09/02/2024 3:27 PM CDT 09/02/2024 6:32 PM CDT us Jeovany Echevarria MD PhD LAB BLOOD ORDERABLES Final Result Performing Organization Address [facility] Co de Phone Number [facility] [place] [address] * Allergen Aspergillus fumigatus (mold) IgE (09/02/2024 3:27 PM CDT) Aspergillus fumigatus IgE <0.10 0.00 - 0.34 kUnits/L Blood 09/02/2024 3:27 PM CDT 09/02/2024 6:32 PM CDT us Jeovany Echevarria MD PhD LAB BLOOD ORDERABLES Final Result Performing Organization Address [facility] Co de Phone Number [facility] [place] [address] * Allergen Dermatophagoides pteronyssinus (insect) IgE (09/02/2024 3:27 PM CDT) Dermatophyton pteronyssinus IgE <0.10 0.00 - 0.34 kUnits/L Blood 09/02/2024 3:27 PM CDT 09/02/2024 6:32 PM CDT us Jeovany Echevarria MD PhD LAB BLOOD ORDERABLES Final Result Performing Organization Address [facility] Co de Phone Number [facility] [place] [address] * Allergen Dermatophagoides farniae (insect) IgE (09/02/2024 3:27 PM CDT) Dermatophyton farinae IgE <0.10 0.00 - 0.34 kUnits/L Blood 09/02/2024 3:27 PM CDT 09/02/2024 6:32 PM CDT us Jeovany Echevarria MD PhD LAB BLOOD ORDERABLES Final Result Performing Organization Address [facility] Co de Phone Number [facility] [place] [address] * Allergen Epithelia/dander dog (animal) IgE (09/02/2024 3:27 PM CDT) Dog dander IgE <0.10 0.00 - 0.34 kUnits/L Blood 09/02/2024 3:27 PM CDT 09/02/2024 6:32 PM CDT us Jeovany Echevarria MD PhD LAB BLOOD ORDERABLES Final Result Performing Organization Address [facility] Co de Phone Number [facility] [place] [address] * Allergen Cockroach peruvian (insect) IgE (09/02/2024 3:27 PM CDT) Cockroach IgE <0.10 0.00 - 0.34 kUnits/L Blood 09/02/2024 3:27 PM CDT 09/02/2024 6:32 PM CDT Jeovany Echevarria MD PhD LAB BLOOD ORDERABLES Final Result Performing Organization Address [facility] Co de Phone Number [facility] [place] [address] * Allergen Epithelia/dander cat (animal) IgE (09/02/2024 3:27 PM CDT) Cat dander IgE <0.10 0.00 - 0.34 kUnits/L Blood 09/02/2024 3:27 PM CDT 09/02/2024 6:32 PM CDT Jeovany Echevarria MD PhD LAB BLOOD ORDERABLES Final Result Performing Organization Address [facility] Co de Phone Number [facility] Department [place] [address] * Allergen Ragweed short/common (weed) IgE (09/02/2024 3:27 PM CDT) Ragweed common IgE <0.10 0.00 - 0.34 kUnits/L Blood 09/02/2024 3:27 PM CDT 09/02/2024 6:32 PM CDT Jeovany Echevarria MD PhD LAB BLOOD ORDERABLES Final Result Performing Organization Address City/[facility]/ZIP Co de Phone Number [facility] [place] [address] * Allergen Pigweed, rough (weed) IgE (09/02/2024 3:27 PM CDT) Pigweed rough IgE <0.10 0.00 - 0.34 kUnits/L Blood 09/02/2024 3:27 PM CDT 09/02/2024 6:32 PM CDT us Jeovany Echevarria MD PhD LAB BLOOD ORDERABLES Final Result Performing Organization Address [facility] [place] [address] * Allergen Nettle (weed) IgE (09/02/2024 3:27 PM CDT) Nettle IgE <0.10 0.00 - 0.34 kUnits/L Blood 09/02/2024 3:27 PM CDT 09/02/2024 6:32 PM CDT us Jeovany Echevarria MD PhD LAB BLOOD ORDERABLES Final Result Performing Organization Address [facility]/ZIP Co de Phone Number [facility] [place] [address] * Allergen Lancaster's quarter (weed) IgE (09/02/2024 3:27 PM CDT) Lancaster's quarters IgE <0.10 0.00 - 0.34 kUnits/L Blood 09/02/2024 3:27 PM CDT 09/02/2024 6:32 PM CDT us Jeovany Echevarria MD PhD LAB BLOOD ORDERABLES Final Result Performing Organization Address City/[facility]/ZIP Co de Phone Number [facility] [place] [address] * Allergen Victo Rhugo grass (grass) IgE (09/02/2024 3:27 PM CDT) Victor Hugo grass IgE <0.10 0.00 - 0.34 kUnits/L Blood 09/02/2024 3:27 PM CDT 09/02/2024 6:32 PM CDT us Jeovany Echevarria MD PhD LAB BLOOD ORDERABLES [place] [address] * Allergen Rui grass (grass) IgE (09/02/2024 3:27 PM CDT) Rui grass IgE <0.10 0.00 - 0.34 kUnits/L Blood 09/02/2024 3:27 PM CDT 09/02/2024 6:32 PM CDT us Jeovany Echevarria MD PhD LAB BLOOD ORDERABLES Final Result Performing Organization Address City/[facility]/ZIP [place] [address] * Allergen Albany (tree) IgE (09/02/2024 3:27 PM CDT) [place] (tree) IgE <0.10 0.00 - 0.34 kUnits/L Blood 09/02/2024 3:27 PM CDT 09/02/2024 6:32 PM CDT us Jeovany Echevarria MD PhD LAB BLOOD ORDERABLES Final Result Performing Organization Address City/[facility]/ZIP [place] [address] * Allergen [place]ston peruvian (tree) IgE (09/02/2024 3:27 PM CDT) [place] IgE See Comment 0.00 - 0.34 kUnits/L Comment:Credited, quantity n ot sufficient. Blood 09/02/2024 3:2 7 PM CDT 09/02/2024 6:32 PM CDT us Jeovany Echevarria MD PhD LAB BLOOD ORDERABLES Final Result Performing Organization Address [facility] Co de Phone Number [facility] Department [place] [address] * Allergen Maple/Box elder (tree) IgE (09/02/2024 3:27 PM CDT) [facility] Maple/box elder IgE <0.10 0.00 - 0.34 kUnits/L Blood 09/02/2024 3:27 PM CDT 09/02/2024 6:32 PM CDT us Jeovany Echevarria MD PhD LAB BLOOD ORDERABLES Final Result Performing Organization Address [facility] Co de Phone Number [facility] Department [place] [address] * Allergen Phoenix red (tree) IgE (09/02/2024 3:27 PM CDT) [facility] Phoenix IgE <0.10 0.00 - 0.34 kUnits/L Blood 09/02/2024 3:27 PM CDT 09/02/2024 6:32 PM CDT us Jeovany Echevarria MD PhD LAB BLOOD ORDERABLES Final Result Performing Organization Address [facility] Co de Phone Number [facility] Department [place] [address] * IgE (09/02/2024 3:27 PM CDT) IgE 2 <=100 IUnits/mL Blood 09/02/2024 3:27 PM CDT 09/02/2024 6:23 PM CDT us Jeovany Echevarria MD PhD LAB BLOOD ORDERABLES Final Result [facility] [place] [address] * (ABNORMAL) Lipid panel (09/02/2024 10:56 AM CDT) Cholesterol 91 30 - 199 mg/dL Comment: Interpretive Data Ages < or = 19 years Acceptable: <170 mg/dL Borderline high: 170-199 mg/dL High: >or= 200 mg/dL Ages > or = 20 years Desirable: <200 mg/dL Borderline high: 200-239 mg/dL High: >or= 240 mg/dL Literature References: 1. Expert Panel on Integrated Guidelines for Cardiovascular Health and Risk Reduction in Children and Adolescents. Pediatrics 2011;128:S213 2. NCEP Expert Panel. Circulation 2004;110:227 Current Interpretive Data was last revised on 2017. Triglycerides 77 <=149 mg/dL [facility] Comment: Interpretive Data Ages < or = 9 years Acceptable: <75 mg/dL Borderline high: 75-99 mg/dL High: >or= 100 mg/dL Ages 10 to 20 years Acceptable: <90 mg/dL Borderline high: 90-129 mg/dL High: >or= 130 mg/dL Ages > or = 20 years Desirable: <150 mg/dL Borderline high: 150-199 mg/dL High: 200-499 mg/dL Very high: >or= 499 mg/dL Literature References: 1. Expert Panel on Integrated Guidelines for Cardiovascular Health and Risk Reduction in Children and Adolescents. Pediatrics 2011;128:S213 2. NCEP Expert Panel. Circulation 2004;110:227 Current Interpretive Data was last revised on 2017. HDL 28(L) >=40 mg/dL [facility] Comment: Interpretive Data Ages < or = 19 years Acceptable: >45 mg/dL Borderline low: 40-45 mg/dL Low: <40 mg/dL Ages > or = 20 years Desirable: >or= 60 mg/dL Low: <40 mg/dL Literature References: 1. Expert Panel on Integrated Guidelines for Cardiovascular Health and Risk Reduction in Children and Adolescents. Pediatrics 2011;128:S213 2. NCEP Expert Panel. Circulation 2004;110:227 Current Interpretive Data was last revised on 2017. LDL, calculated 47 <=129 mg/dL [facility] Comment: Interpretive Data Ages < or = 19 years Acceptable: <110 mg/dL Borderline high: 110-129 mg/dL High: >or= 130 mg/dL Ages > or = 20 years Optimal: <100 mg/dL Near optimal: 100-129 mg/dL Borderline high: 130-159 mg/dL High: >160 mg/dL Calculated using the Isaiah LDL-C estimating equation. This equation was implemented on 2023. Prior to this date LDL-C was estimated using the Friedewald equation. Literature References: 1. Expert Panel on Integrated Guidelines for Cardiovascular Health and Risk Reduction in Children and Adolescents. Pediatrics 2011;128:S213 2. NCEP Expert Panel. Circulation 2004;110:227 3. Isaiah Gibson et al. YUDY Cardiol. 2020 June 24;5(5):540-548. doi: 10.1001/jamacardio.2020.0013 Current Interpretive Data was last revised on 2023. Non-HDL Cholesterol 63 mg/dL [facility] Comment: Interpretive Data Ages < or = 19 years Acceptable: <120 mg/dL Borderline high: 120-144 mg/dL High: >145 mg/dL Ages > or = 20 years When triglycerides are >200 mg/dL, Non-HDL cholesterol is a secondary target of therapy with treatment goals that are 30 mg/dL greater than the LDL cholesterol target. Literature References: 1. Expert Panel on Integrated Guidelines for Cardiovascular Health and Risk Reduction in Children and Adolescents. Pediatrics 2011;128:S213 2. NCEP Expert Panel. Circulation 2004;110:227 Current Interpretive Data was last revised on 2017. Chol/HDL ratio 3 [facility] Blood 09/02/2024 10:5 6 AM CDT 09/02/2024 11:32 AM CDT Narrative [facility] - 09/02/2024 12:07 PM CDT These lab test should be done fasting. This means do not eat or drink for at least 12 hours prior to getting your blood drawn. Bety Horton NP LAB BLOOD ORDERABLES Whit l Result Performing Organization Address City/[facility]/ZIP Co de Phone Number [facility] Department [place] [address] * Dexa Axial Skeleton Bone Density 1 or 2 Site (08/30/2024 1:10 PM CDT) Anatomical Region Laterality Modality Body N/A Radiographic Mala ging Cipriano Del Cid NP IMG DXA PROCEDURES Final Result * eGFR (08/30/2024 12:24 PM CDT) eGFR 77 >=60 mL/min/1. 73 m2 Comment: Interpretive Data Reference Interval Normal >/= 90 mL/min/1.73m2 Mildly decreased* 60 - 89 mL/min/1.73m2 Mildly to moderately decreased 45 - 59 mL/min/1.73m2 Moderately to severely decreased 30 - 44 mL/min/1.73m2 Severely decreased 15 - 29 mL/min/1.73m2 Kidney Failure < 15 mL/min/1.73m2 *Relative to young adult level Estimated glomerular filtration rate is determined by the 2020 CKD-EPI equation recommended by the National Kidney Foundation (A Unifying Approach to GFR Estimation: Recommendations of the NKF-ASK Task Force on Reassessing the Inclusion of Race in Diagnosing Kidney Disease, JASN 2020). The CKD-EPI equation should not be used for patients with unstable renal function and has not been validated in children and those over 70. Current interpretive data was last reviewed 2020. Blood 08/30/2024 12:2 4 PM CDT 08/30/2024 12:58 PM CDT Bety Horton NP LAB BLOOD ORDERABLES Whit l Result Performing Organization Address [facility]/ZIP Co de Phone Number [facility] Department [place] [address] * (ABNORMAL) Differential, auto (08/30/2024 12:24 PM CDT) Neutrophil abs 3.35 1.50 - 6.50 K/cumm Imm gran abs 0.04 0.00 - 0.10 K/cumm [facility] Lymphocyte abs 1.58 0.80 - 3.30 K/cumm [facility] Monocyte abs 0.95(H) 0.20 - 0.80 K/cumm [facility] Eosinophil abs 0.30 0.00 - 0.50 K/cumm [facility] Basophil abs 0.05 0.00 - 0.10 K/cumm [facility] Neutrophil pct 53.4 % [facility] Comment: Interpretive Data Percent cell count reference ranges are not reported, since discordance with absolute values may lead to misinterpretation of CBC data. Current Interpretive Data was last revised on 2017. Imm gran pct 0.6 % [facility] Comment: Interpretive Data Percent cell count reference ranges are not reported, since discordance with absolute values may lead to misinterpretation of CBC data. Current Interpretive Data was last revised on 2017. Lymphocyte pct 25.2 % [facility] Comment: Interpretive Data Percent cell count reference ranges are not reported, since discordance with absolute values may lead to misinterpretation of CBC data. Current Interpretive Data was last revised on 2017. Monocyte pct 15.2 % [facility] Comment: Interpretive Data Percent cell count reference ranges are not reported, since discordance with absolute values may lead to misinterpretation of CBC data. Current Interpretive Data was last revised on 2017. Eosinophil pct 4.8 % [facility] Comment: Interpretive Data Percent cell count reference ranges are not reported, since discordance with absolute values may lead to misinterpretation of CBC data. Current Interpretive Data was last revised on 2017. Basophil pct 0.8 % [facility] Comment: Interpretive Data Percent cell count reference ranges are not reported, since discordance with absolute values may lead to misinterpretation of CBC data. Current Interpretive Data was last revised on 2017. Blood 08/30/2024 12:2 4 PM CDT 08/30/2024 12:53 PM CDT Bety Horton PARKS RECREATION DIRECTOR LAB BLOOD ORDERABLES Whit l Result Performing Organization Address City/[facility] Co de Phone Number [facility] [place] [address] * Thyroid Function Letcher (08/30/2024 12:24 PM CDT) [facility] TSH 3.25 0.30 - 4.20 mcIUnit/mL Blood 08/30/2024 12:2 4 PM CDT 08/30/2024 12:53 PM CDT Bety Horton PARKS RECREATION DIRECTOR LAB BLOOD ORDERABLES Whit l Result Performing Organization Address [facility] Co de Phone Number [facility] [place] [address] * (ABNORMAL) CBC with auto differential (08/30/2024 12:24 PM CDT) [facility] WBC 6.27 3.80 - 9.90 K/cumm Hgb 12.2(L) 13.0 - 17.5 g/dL [facility] Hct 37.2(L) 38.9 - 50.3 % [facility] Plt 152 150 - 400 K/cumm [facility] MPV 10.0 9.1 - 12.3 fL [facility] RBC 4.23(L) 4.30 - 5.80 M/cumm [facility] MCV 87.9 81.3 - 96.4 fL [facility] MCH 28.8 27.1 - 33.3 pg [facility] MCHC 32.8 32.3 - 35.7 g/dL [facility] RDW CV 14.5 11.1 - 14.9 % [facility] RDW SD 46.2 35.7 - 48.1 fL [facility] NRBC abs 0.00 0.00 - 0.01 K/cumm [facility] Blood 08/30/2024 12:2 4 PM CDT 08/30/2024 12:53 PM CDT Bety Horton PARKS RECREATION DIRECTOR LAB BLOOD ORDERABLES Whit l Result Performing Organization Address [facility] Co de Phone Number [facility] [place] [address] * (ABNORMAL) Albumin Creatinine Ratio, Urine (08/30/2024 12:24 PM CDT) Albumin Ur 72.2 mg/L Comment: Interpretive Data No reference range established. Current interpretive data was last revised 2018. Creatinine Ur 125.7 mg/dL [facility] Comment: Interpretive Data No reference range established. Current interpretive data was last revised 2018. Albumin Creatinine Ratio, Ur 57(H) 1 - 29 mg/g [facility] Urine 08/30/2024 12:2 4 PM CDT 08/30/2024 12:53 PM CDT Bety Horton PARKS RECREATION DIRECTOR LAB URINE ORDERABLES Whit l Result Performing Organization Address [facility] de Phone Number [facility] [place] [address] * Vitamin D 25 hydroxy (08/30/2024 12:24 PM CDT) Pathologist [facility] Vitamin D 25-OH 43 30 - 80 ng/mL Blood 08/30/2024 12:2 4 PM CDT 08/30/2024 12:53 PM CDT Bety Horton PARKS RECREATION DIRECTOR LAB BLOOD ORDERABLES Whit l Result Performing Organization Address [facility] Co de Phone Number [facility] [place] [address] * Comprehensive metabolic panel (08/30/2024 12:24 PM CDT) Pathologist [facility] Sodium 143 135 - 145 mmol/L Potassium, pl 4.0 3.3 - 4.9 mmol/L [facility] Chloride 105 97 - 110 mmol/L [facility] CO2 30 22 - 32 mmol/L [facility] Anion gap 8 2 - 15 mmol/L [facility] BUN 15 6 - 25 mg/dL [facility] Creatinine 1.00 0.80 - 1.30 mg/dL [facility] Glucose 158 70 - 199 mg/dL [facility] Comment: Interpretive Data Fasting glucose >/= 126 mg/dl is diagnostic for diabetes. Fasting is defined as no caloric intake for at least 8 hours. Fasting glucose between 100 mg/dl to 125 mg/dl is diagnostic of prediabetes. In a patient with classic symptoms of hyperglycemia or hyperglycemic crisis, a random glucose >/= 200 mg/dl is diagnostic for diabetes. In the absence of unequivocal hyperglycemia, results should be confirmed by repeat testing. The classification and Diagnosis of Diabetes Diabetes Care 202; 46: S19-S40. Current interpretive data was last revised 2022. Calcium 9.5 8.5 - 10.3 mg/dL [facility] Bilirubin, total 0.6 0.1 - 1.2 mg/dL [facility] Protein, pl 7.3 6.5 - 8.5 g/dL [facility] Albumin 4.1 3.5 - 5.0 g/dL [facility] Alk phos 107 40 - 130 Units/L [facility] ALT 16 7 - 55 Units/L [facility] AST 25 10 - 50 Units/L [facility] Blood 08/30/2024 12:2 4 PM CDT 08/30/2024 12:53 PM CDT us Bety Horton NP LAB BLOOD ORDERABLES Whit perry Result [facility] [place] [address] * (ABNORMAL) POCT hemoglobin A1c (08/30/2024 10:55 AM CDT) Hemoglobin A1C, POC 7.7(A) 4.0 - 5.6 % Blood 08/30/2024 10:5 5 AM CDT us Bety Horton NP POINT OF CARE TEST ORDERA BLES Final Result * POCT glucose (08/30/2024 10:55 AM CDT) Glucose Blood, POC 139 Normal Fasting 70 - 100, Random <200 mg/dL Blood 08/30/2024 10:5 5 AM CDT us Bety Horton NP POINT OF CARE TEST ORDERA BLES Final Result from Last 3 [place] [address] [facility] MEDICARE [facility] MEDICARE [facility] RENITA Rosales [id number] Advance Directives For more information, please contact: [phone] * Full Code (Latest Code Status on File) Date Activated Date Inactivated Comments 04/15/2022 4:03 PM 04/18/2022 9:50 PM * Full Code Date Activated Date Inactivated Comments 03/29/2022 4:51 PM 03/30/2022 7:50 PM Care Teams Engineering Supervisor Relationship Specialty Start Date End Date Stuart Howe DO [address] [place] [address] PCP - General Family Medicine 05/10/21 July Maradiaga MD [address] [place] [address] Consulting Physician Cardiology 03/22/22 Bandar Up, MACKENZIE [address] [facility] [address] [place] [address] Physical Therapist Physical Therapy 06/11/22 Esther Garcia, PT [address] [facility] [address] [place] [address] Physical Therapist Physical Therapy 08/13/22
--- OUTSIDE RECORDS SUMMARY | 2024-11-23 11:54 | XMS_ITS | Encounter Summary ---
Author Organization [employer] Address 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
--- OUTSIDE RECORDS SUMMARY | 2024-11-23 11:54 | XMS_ITS | Encounter Summary ---
Author Organization [employer] Address 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
--- OUTSIDE RECORDS SUMMARY | 2024-11-23 11:54 | XMS_ITS | Encounter Summary ---
Author Organization [employer] Address [address] [place] [address] Care Team Providers Care Concession Worker Name Role Phone Ehsan Campos MD Primary Care Provider [phone] Encounter Details Date Type Department Care Team (Late st Contact Info) Description 06/29/1999 Outpatient Historical HIS X/RAY HOSP Wilmer Barba MD [address] [place] [id number] Dyspepsia and other specified disorders of function of stomach (Primary Dx) Social History Tobacco Use Types Packs/Day Years Used Date Smoking Tobacco: Never Assessed Sex and Gender Information Value Date Recorded Sex Assigned at Not on file 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
--- OUTSIDE RECORDS SUMMARY | 2024-11-23 11:54 | XMS_ITS | Encounter Summary ---
Author Organization [facility] Address [address] [place] [address] Phone Care Team Providers Care Balance Wheel Arm Burnisher Name Role Phone Stuart Howe DO Primary Care Provider July Maradiaga MD Unavailable Bandar Up DPT Unavailable [phone] Esther Garcia PT Unavailable [phone] Encounter Details Date Type Department Care Team (Late st Contact Info) Description 02/01/2022 Telephone [facility] Medicine Scheduling [facility] [place] [address] Galilea Esteban CMA Social History Tobacco Use Types Packs/Day Years Used Date Smoking Tobacco: Former Cigarettes Q uit: 02/25/1964 Alcohol Use Standard Drinks/Week Comments No 0 (1 standard drink = 0.6 oz pur e alcohol) Sex and Gender Information Value Date Recorded Sex Assigned at Not on file 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 Gender Identity Male 05/07/2021 12:04 AM CDT Sexual Orientation Straight 06/25/2022 9: 20 AM CDT documented as of this encounter Plan of Treatment Not on file documented as of this encounter Visit Diagnoses Not on filedocumented in this encounter Care Teams Balance Wheel Arm Burnisher Relationship Specialty Start Date End Date Stuart Howe DO [address] [place] [address] PCP - General Family Medicine 05/10/21 July Maradiaga MD [address] [place] [address] Consulting Physician Cardiology 03/22/22 Bandar Up, RADHAT [address] [facility] [address] [address] Physical Therapist Physical Therapy 06/11/22 Esther Garcia, PT [address] [facility] [address] [address] Physical Therapist Physical Therapy 08/13/22 documented as of this encounter
== END 2024-11-23 11:31 | disposition home or self-care (01) ==
PROVIDERS: PCP Nurse Practitioner Family; Visit Provider Nurse Practitioner Family
DX: M79.671 Pain in right foot (principal)
CPT/HCPCS: 73630

== ENCOUNTER 2025-01-18 08:08 | Outpatient (CLI) | payer MEDICARE, OTHER, SELFPAY ==
--- OUTSIDE RECORDS SUMMARY | 2025-01-17 11:00 | XMS_ITS | Encounter Summary ---
Author Organization [facility] Address [address] [place] [address] Phone Care Team Providers Care Track Welder Name Role Phone Stuart Howe DO Primary Care Provider July Maradiaga MD Unavailable [phone] Bandar Up DPT Unavailable [phone] Esther Garcia PT Unavailable [phone] Encounter Details Date Type Department Care Team (Late st Contact Info) Description 01/17/2025 11:00 AM HANDLING TECH Office Visit [facility] Endocrinology Metabolism and Lipid [address] [facility] Advanced Medicine 13th [place] [address] [place] [address] Gladys Box MD [address] [facility] [address] [place] [address] Type 2 diabetes mellitus with hyperglycemia, with long-term current use of insulin (HCC) (Primary Dx) Social History Tobacco Use Types Packs/Day Years Used Date Smoking Tobacco: Former Cigarettes 1 10 Q uit: 02/25/1964 Smokeless Tobacco: Never Tobacco Cessation:Counseling Given: No Alcohol Use Standard Drinks/Week Comments No 0 (1 standard drink = 0.6 oz pur e alcohol) PHQ-2 Answer Date Recorded PHQ-2 Total Score (If total score is 3 or more points, staff should administer the PHQ-9) 0 04/15/2022 AUDIT-C Answer Date Recorded Frequency of Alcohol Consumption Not on file 12/16/2024 Q2: How many drinks containi ng alcohol do you have on a typical day when you are drinking? Patient does not drink Frequency of Binge Drinking Not on file 11/25 Hunger Vital Sign Answer Date Recorded Within the past 12 months, y ou worried that your food would run out before you got the money to buy more. Never true 01/01/20 25 Ran Out of Food in the Last Year Not on file 12/31/2024 Personal Safety Answer Date Recorded Have you ever been in or are you currently in a harmful physical or emotional relationship or is someone making you feel afraid or unsafe? Denies 12/31/2024 Sex and Gender Information Value Date Recorded Sex Assigned at Not on file Legal Sex Male 6:01 PM HANDLING TECH Gender Identity Male 05/07/2021 12:04 AM CDT Sexual Orientation Straight 06/25/2022 9: 20 AM CDT documented as of this encounter Last Filed Vital Signs Vital Sign Reading Time Taken Comments Blood Pressure 144/76 01/17/2025 10:39 AM HANDLING TECH Pulse 59 01/17/2025 10:39 AM HANDLING TECH Temperature 36.8 C (98.2 F) 01/17/2025 10:39 AM HANDLING TECH Respiratory Rate - - Oxygen Saturation - - Inhaled Oxygen Concentration - - Weight 78.7 kg (173 lb 9.6 oz) 01/17/2025 10:39 AM HANDLING TECH Height 175.3 cm (5' 9) 01/17/2025 10:39 AM HANDLING TECH Body Mass Index 25.64 01/17/2025 10:39 AM HANDLING TECH documented in this encounter Functional Status * BP Location Answer Date of Assessment Author Right arm 01/17/2025 10:39 AM HANDLING TECH Felipe Jimenez CMA * BP Location Answer Date of Assessment Author Right arm 01/17/2025 10:39 AM HANDLING TECH Felipe Jimenez CMA documented as of this encounter Patient Instructions * Patient Instructions* Gladys oBx MD - 01/17/2025 11:00 AM HANDLING TECH Increase Lantus to 22 units Continue Humalog/Lispro/Novolog at the same doses before meals. Fasting labs are ordered at [facility] Likely pump option is the OMNIPOD - please look at videos ahead of time LING TECH LING TECH documented in this encounter Progress Notes * Gladys Box MD - 01/17/2025 11:00 AM CST Images from the original note were not included. Endocrinology/Diabetes Outpatient Note Name: Gavin Fenton Age: 79 y.o. (Date of : 1945, ) PCP: Stuart Howe DO CC: Uncontrolled diabetes Gavin Fenton is a 79 y.o. male who is referred for evaluation of Type 2 Diabetes mellitus. He was seen inpatient by our inpatient diabetes team in 03/2022 and started on insulin in the setting ofhigh dose steroids for immune mediated neuropathy. Diabetes was diagnosed about 22 years ago. (Confirmed this with patient although initial consult note says he was diagnosed in 2014.) on routine blood work. Prior therapy has included: metformin (stopped, but patient is not sure why), empagliflozin(cost prohibits patient from taking), pioglitazone (stopped for unclear reason). He started insulin03/2022 due to hyperglycemia associated with high dose steroids for immune-related neuropathy. He denies any history of DKA Interval Doing well. Pt has had a permanent nerve stimulator placed, which is helping with his pain. A1c 7.0% (04/28/23) --> 7.9% (11/03/23) --. 8.1% (05/04/23) --> 7.7% (08/2024) --> 7.4% (01/18) Current therapy includes: Daily therapy: Lantus 20 units taken in the evening Humalog 4 units TID AC plus: If glucose is 151 - 200 --> add 1 unit (so 5 units) If glucose is 201 - 250 --> add 2 units (so take 6 units) If glucose is 251 - 300 --> add 3 units (take 7 units) If glucose is >301 --> add 4 units (take 8 units) He is not taking steroids, successfully weaned off about year ago. No non-insulin rx . A1c trend: Lab Results Component Value Date HGBA1C 7.4 (A) 01/17/2025 HGBA1C 7.7 (A) 08/30/2024 HGBA1C 8.1 05/03/2024 HGBA1C 7.9 11/03/2023 HGBA1C 7.0 04/28/2023 11/29/2018 (from care everywhere) A1c 7.3% Monitoring: Patient has a Dexcom G7 uses a assistant cross country coach. Reviewed Dexcom. CGM Interpretation - Sensor: G7 - Wear time: 96% - Indication for placement: Diabetes, insulin use, risk of hypoglycemia - Analysis: Time in range: 35%; 65% TAR - Interpretation: These CGM data show significant hyperglycemia but reduced variability compared tothe last tracing. Specifically, post prandial excursions are reduced. For recommendations, see plan. Prior download: Balance, vision and strength have been compromised in the setting of his aggressive neuropathy. Pt arrives in a wheelchair, says that he is able to walk at home. He walked a short distance to the bathroom, demonstrated terrible balance, difficulty walking without assistance. Diabetes complications include: Eyes: vision blurry which has gotten worse with steroids. Denies history of retinopathy. Anticipates getting eyes rechecked after steroid course finish. Follow up [id number]. Kidney: has had kidney stones, eGFR OK Neurologic: has underlying immune mediated neuropathy, and diabetes might be contributing Cardiovascular: has had a heart attack about 4 years ago, required 2 stents. 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 Had MRI of the leg that showed increased signal changes in the gastrocnemius muscle and thought to have myositis, however nerve conduction study/EMG showed asymmetric polyneuropathy and biopsy showed deposition of membrane attack complex consistent with an immune-mediated neuropathy. He was admitted for IV methylpred 03/2022 @ [facility]. He tolerated 5g while in-patient and was discharged on weekly steroids. Steroids have titrated from weekly to every 2 weeks, then every 4 weeks, now off. He reports his muscles and strength have improved with steroids, but nerves remained damaged. He had been taking methylprednisolone 1000 mg monthly, but that ended close to a year ago. Weight increased with steroids, then down with neck fracture. Currently 173#. Has been as much 210#. CV Risk factors: Hypertension: diagnosed with hypertension in 20s without obesity. Prior therapy: lisinopril 5mg, cardura, carvedilol. Uncontrolled today, BP 153/76 mmHg. Hyperlipidemia: on atorvastatin 20mg; 7 months ago cholesterol was 197, triglycerides 365, LDL 81 mg/dl Family history: Both parents were type 1 Diabetes -- from trauma (MV accident, likely pancreatic) Bone health Pt's odontoid fracture qualifies as a fragility fracture, by definition is osteoporosis. There is no prior history of fractures. Pt has a history of high dose steroid use. Pt needs a bone density andother work-up (SPEP, testosterone level). 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 Moderate malnutrition (CMS/HCC) Mixed hyperlipidemia Hip pain Essential (primary) hypertension Chronic back pain Sleep apnea Spinal stenosis Type 2 diabetes mellitus with hyperglycemia, with long-term current use of insulin (HCC) On methylprednisolone therapy IgA deficiency (HCC) IgM deficiency (HCC) Persistent 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 complication Mononeuropathy multiplex syndrome Intractable neuropathic pain of lower extremity Chronic painful diabetic neuropathy (HCC) Status post insertion of drug eluting coronary artery stent 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 All other systems are negative. Vitals BP 144/76 (BP Location: Right arm, Patient Position: Sitting) Pulse 59 Temp 36.8 ??C (98.2 ??F) (Temporal) Ht 175.3 cm (5' 9) Wt 78.7 kg (173 lb 9.6 oz) BMI 25.64 kg/m?? Physical Exam Vitals reviewed. Constitutional: Appearance: Normal appearance. Arrives in a wheelchair with his daughter. Cardiovascular: Rate and Rhythm: Normal rate. Heart sounds: Normal heart sounds. Pulmonary: Effort: Pulmonary effort is normal. Breath sounds: Normal breath sounds. Neurological: Mental Status: alert. Struggles to ambulate due to poor balance, foot placement. Psychiatric: Mood and Affect: Mood normal. Behavior: Behavior normal. Recent Results (from the past 24 hours) POCT glucose Collection Time: 01/17/25 10:48 AM Result Value Ref Range Glucose Blood, POC 152 Normal Fasting 70 - 100, Random <200 mg/dL POCT hemoglobin A1c Collection Time: 01/17/25 10:48 AM Result Value Ref Range Hemoglobin A1C, POC 7.4 (A) 4.0 - 5.6 % No components found for: GLYCOHEMOGLOBIN Lab Results Component Value Date TSH 3.25 08/30/2024 FREET4 0.88 04/28/2023 Lab Results Component Value Date CHOL 91 09/02/2024 TRIG 77 09/02/2024 HDL 28 (L) 09/02/2024 LDL 110 03/31/2013 PLAN: 1. Type 2 diabetes mellitus with hyperglycemia, with long-term current use of insulin (HCC) (Primary) Labs due Your time in range is below goal. The goal is 70%. Increase Lantus 20 --> 22 units taken in the evening Humalog 4 units with meals plus If glucose is 151 - 200 --> add 1 unit (so 5 units) If glucose is 201 - 250 --> add 2 units (so take 6 units) If glucose is 251 - 300 --> add 3 units (take 7 units) If glucose is >301 --> add 4 units (take 8 units) For your Wheat thin snacks, please take 2 units of Humalog. We discussed increasing protein intake with meal or low fat cheese or sugar free yogurt. Pt is interested in an insulin pump. I am unsure about whether he will be able to learn how to manage with a pump. I will check a fasting C-peptide. Pt's is also 79 and has memory issues. 2. Mixed hyperlipidemia Labs due. Continue statin. 3. Bone Health We will request the Dexa scan results from . Vitamin D level today. Gladys Box MD [facility] Division of Endocrinology, Metabolism, & Lipid Research [address] [facility] [address] [address] LING TECH documented in this encounter Plan of Treatment Scheduled Orders Name Type Priority Associated Diagnoses Orde r Schedule C-peptide Lab Routine Type 2 diabetes mellitus with hyperglycemia, with long-term current use of insulin (HCC) Expected: 01/17/2025, Expires: 01/17/2026 Renal function panel Lab Routine Type 2 diabetes mellitus with hyperglycemia, with long-term current use of insulin (HCC) Expected: 01/17/2025, Expires: 01/17/2026 CBC with auto differential Lab Routine Type 2 diabetes mellitus with hyperglycemia, with long-term current use of insulin (HCC) Expected: 01/17/2025, Expires: 01/17/2026 documented as of this encounter Goals Goal [...] Name Priority Date/Time Associated Diagnosis Comments POCT GLUCOSE 19384 Routine 01/17/2025 10 :48 AM HANDLING TECH Type 2 diabetes mellitus with hyperglycemia, with long-term current use of insulin (HCC) POCT HEMOGLOBIN A1C Routine 01/17/2025 1 0:48 AM HANDLING TECH Type 2 diabetes mellitus with hyperglycemia, with long-term current use of insulin (HCC) documented in this encounter Results * (ABNORMAL) POCT hemoglobin A1c (01/17/2025 10:48 AM HANDLING TECH) Hemoglobin A1C, POC 7.4(A) 4.0 - 5.6 % Blood 01/17/2025 10:4 8 AM HANDLING TECH Gladys Box MD POINT OF CARE TEST ORDERABLES Final Result * POCT glucose (01/17/2025 10:48 AM HANDLING TECH) Glucose Blood, POC 152 Normal Fasting 70 - 100, Random <200 mg/dL Blood 01/17/2025 10:4 8 AM HANDLING TECH Galdys Box MD POINT OF CARE TEST ORDERABLES Final Result documented in this encounter Visit Diagnoses Diagnosis Type 2 diabetes mellitus with hyperglycemia, with long-term current use of insulin (HCC)- Primary documented in this encounter Historical Medications * This list may reflect changes made after this encounter. lisinopriL (PRINIVIL,ZESTRIL ) 5 mg tablet Take 1 tablet (5 mg total) by mouth daily 12/22/2024 added in this encounter Care Teams Track Welder Relationship Specialty Start Date End Date Stuart Howe DO [address] [place] [address] PCP - General Family Medicine 05/10/21 July Maradiaga MD [address] [place] [address] Consulting Physician Cardiology 03/22/22 Bandar Up DPT [address] [facility] [address] [address] Physical Therapist Physical Therapy 06/11/22 Esther Garcia, PT [address] [facility] [address] [place] [address] Physical Therapist Physical Therapy 08/13/22 documented as of this encounter
--- OUTSIDE RECORDS SUMMARY | 2025-01-18 08:12 | XMS_ITS | Encounter Summary ---
Author Organization [facility] Address [address] [place] [address] Phone Care Team Providers Care Special Education Math Teacher Name Role Phone Stuart Howe DO Primary Care Provider July Maradiaga MD Unavailable [phone] Bandar Up DPT Unavailable [phone] Esther Garcia PT Unavailable [phone] Encounter Details Date Type Department Care Team (Late st Contact Info) Description 02/01/2022 Telephone [facility] Medicine Scheduling [facility] [place] [address] Galilea Esteban CMA Social History Tobacco Use Types Packs/Day Years Used Date Smoking Tobacco: Former Cigarettes Q uit: 02/25/1964 Alcohol Use Standard Drinks/Week Comments No 0 (1 standard drink = 0.6 oz pur e alcohol) Sex and Gender Information Value Date Recorded Sex Assigned at Not on file Legal Sex Male 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 PM SASH 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 Gender Identity Male 05/07/2021 12:04 AM CDT Sexual Orientation Straight 06/25/2022 9: 20 AM CDT documented as of this encounter Plan of Treatment Not on file documented as of this encounter Visit Diagnoses Not on filedocumented in this encounter Care Teams Special Education Math Teacher Relationship Specialty Start Date End Date Stuart Howe DO [address] [place] [address] PCP - General Family Medicine 05/10/21 July Maradiaga MD [address] [place] [address] Consulting Physician Cardiology 03/22/22 Bandar Up, RADHAT [address] [facility] [place] [address] [address] Physical Therapist Physical Therapy 06/11/22 Esther Garcia, PT [address] [facility] [place] [address] [address] Physical Therapist Physical Therapy 08/13/22 documented as of this encounter
--- OUTSIDE RECORDS SUMMARY | 2025-01-18 08:12 | XMS_ITS | Encounter Summary ---
Author Organization [employer] Address [address] [place] [address] Care Team Providers Care Police Sergeant Precinct Name Role Phone Ehsan Capmos MD Primary Care Provider [phone] Encounter Details Date Type Department Care Team (Latest Contact Info) Description 06/10/2006 Outpatient Historical [facility] Backer, Wellington Husain MD NO ADDRESS ON FILE Cervicalgia (Primary Dx) Social History Tobacco Use Types Packs/Day Years Used Date Smoking Tobacco: Never Assessed Sex and Gender Information Value Date Recorded Sex Assigned at Not on file Legal Sex Male 2:57 AM PIN DRAFTER Gender Identity Not on file Sexual Orientation [...] INTERFACE SYSTEM 06/10/2006 1:47 PM CDT Result [facility] us Wellington Mendoza MD HEMATOLOGY ORDERABLES Edited Performing Organization Address [facility] Phone Number INTERFACE SYSTEM Refer to clinic/hospital department * TOTAL PROTEIN, CSF (06/10/2006 1:47 PM CDT) PROTEIN, CSF 43 15 - 45 mg/dL INTERFACE SYSTEM 06/10/2006 1:47 PM CDT us Wellington Mendoza MD BODY FLUIDS AND STOOLS Edited Performing Organization Address [facility] Phone Number INTERFACE SYSTEM Refer to clinic/hospital department * (ABNORMAL) GLUCOSE, CSF (06/10/2006 1:47 PM CDT) GLUCOSE, CSF 75(H) 40 - 70 mg/dL INTERFACE SYSTEM 06/10/2006 1:47 PM CDT us Wellington Mendoza MD BODY FLUIDS AND STOOLS Edited Performing Organization Address [facility] Number INTERFACE SYSTEM Refer to clinic/hospital department [...] /uL INTERFACE SYSTEM 06/10/2006 1:47 PM CDT us Wellington Mendoza MD BODY FLUIDS AND STOOLS Edited Performing Organization Address [facility] Phone Number INTERFACE SYSTEM Refer [...] and non- Americans is available on the [facility] Intranet at: [email or web address] Select: Lab Policies and Procedures Select: Reference Ranges - GFR 06/10/2006 10:3 5 AM CDT Wellington Mendoza MD CHEMISTRY ORDERABLES Edited Performing Organization Address City/[facility]/ZIP Co de Phone Number INTERFACE SYSTEM Refer to clinic/hospital department * HEMOGLOBIN AND HEMATOCRIT (06/10/2006 10:35 AM CDT) HEMOGLOBIN 14.5 13.6 - 16.5 g/dL INTERFACE SYSTEM HEMATOCRIT 42.3 40.0 - 48.0 % INTERFACE SYSTEM 06/10/2006 10:3 5 AM CDT Wellington Mendoza MD HEMATOLOGY ORDERABLES Edited INTERFACE SYSTEM Refer to clinic/hospital department documented in this encounter Visit Diagnoses Diagnosis Cervicalgia- Primary documented in this encounter Care Teams Police Sergeant Precinct Relationship Specialty Start Date End Date Ehsan Campos MD [address] [place] [address] PCP - General 01/14/03 documented as of this encounter
--- OUTSIDE RECORDS SUMMARY | 2025-01-18 08:12 | XMS_ITS | Encounter Summary ---
Author Organization [employer] Address 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) Social History Tobacco Use Types Packs/Day Years Used Date Smoking Tobacco: Never Assessed Sex and Gender Information Value Date Recorded Sex Assigned at Not on file Legal Sex Male 2:57 AM STAFF RN Gender Identity Not on file Sexual Orientation [...] mg/dL INTERFACE SYSTEM 07/01/2006 5:00 AM CDT us Wellington Mendoza MD POINT OF CARE TESTING Edited Performing Organization Address City/[facility] de Phone Number INTERFACE SYSTEM Refer to clinic/hospital department * (ABNORMAL) POC GLUCOSE (06/30/2006 8:12 PM CDT) COMMENT, GLU POC Notified RN INTERFACE SYSTEM GLUCOSE POC 286(H) 65 - 99 mg/dL INTERFACE SYSTEM 06/30/2006 8:12 PM CDT us Wellington Mendoza MD POINT OF CARE TESTING Edited Performing Organization Address [facility] Phone Number INTERFACE SYSTEM Refer to clinic/hospital department * (ABNORMAL) POC GLUCOSE (06/30/2006 5:01 PM CDT) COMMENT, GLU POC Notified RN INTERFACE SYSTEM GLUCOSE POC 227(H) 65 - 99 mg/dL INTERFACE SYSTEM 06/30/2006 5:01 PM CDT us Wellington Mendoza MD POINT OF CARE TESTING Edited Performing Organization Address [facility] de Phone Number INTERFACE SYSTEM Refer to clinic/hospital department * (ABNORMAL) POC GLUCOSE (06/30/2006 11:58 AM CDT) COMMENT, GLU POC Notified RN INTERFACE SYSTEM GLUCOSE POC 180(H) 65 - 99 mg/dL INTERFACE SYSTEM 06/30/2006 11:5 8 AM CDT us Wellington Mendoza MD POINT OF CARE TESTING Edited Performing Organization Address [facility] de Phone Number INTERFACE SYSTEM Refer to clinic/hospital department * (ABNORMAL) POC GLUCOSE (06/30/2006 9:10 AM CDT) GLUCOSE POC 165(H) 65 - 99 mg/dL INTERFACE SYSTEM 06/30/2006 9:10 AM CDT us Wellington Mendoza MD POINT OF CARE TESTING Edited Performing Organization Address [facility] de Phone Number INTERFACE SYSTEM Refer to clinic/hospital department * (ABNORMAL) POC GLUCOSE (06/30/2006 5:56 AM CDT) GLUCOSE POC 138(H) 65 - 99 mg/dL INTERFACE SYSTEM 06/30/2006 5:56 AM CDT Wellington Mendoza MD POINT OF CARE TESTING Edited Performing Organization Address [facility] Phone Number INTERFACE SYSTEM Refer to [...] available on the [facility] Intranet at: [email or web address] Select: Lab Policies and Procedures Select: Reference Ranges - GFR 06/27/2006 11:1 7 AM CDT us Wellington Mendoza MD CHEMISTRY ORDERABLES Edited Performing Organization Address [facility] Co de Phone Number INTERFACE SYSTEM [...] Primary documented in this encounter Care Teams Network Security Administrator Relationship Specialty Start Date End Date Ehsan Campos MD [address] [place] [phone] PCP - General 01/14/03 documented as of this encounter
--- OUTSIDE RECORDS SUMMARY | 2025-01-18 08:12 | XMS_ITS | Encounter Summary ---
Author Organization [facility] Address [address] [place] [address] Phone Care Team Providers Care Acquisition Specialist Name Role Phone Stuart Howe DO Primary Care Provider July Maradiaga MD Unavailable [phone] Bandar Up DPT Unavailable [phone] Esther Garcia PT Unavailable [phone] Encounter Details Date Type Department Care Team (Late st Contact Info) Description 07/16/2022 Documentation [facility] Medicine Physical Therapy Pain Clinic [address] [facility] Advanced Medicine 14th [place] [address] [place] [id number] Esther Garcia, PT [address] [facility] [address] [place] [address] Social History Tobacco Use Types [...] on file 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 Gender Identity Male 05/07/2021 12:04 AM CDT Sexual Orientation Straight 06/25/2022 9: 20 AM CDT documented as of this encounter Functional Status * Lower Extremity Functional (LEFS) Activities Question Answer Date of Assessment Author Any of your usual work, housework, or school activities 2 - Moderate difficulty 07/19/2022 9:00 AM DAIJAT Esther Garcia, PT Your usual hobbies, recreational, or sporting activities 3 - A little bit of difficulty 07/19/2022 9:00 AM Esther Narvaez, PT Getting into or out of the bath 3 - A little bit of difficulty 07/19/2022 9:00 AM Esther Narvaez, PT Walking between rooms 2 - Moderate difficulty 07/19/2022 9:00 AM Esther Narvaez, PT Putting on your shoes or socks 2 - Moderate difficulty 07/19/2022 9:00 AM Esther Narvaez, PT Squatting 1 - Quite a bit of difficulty 07/19/2022 9:00 AM Esther Narvaez, PT Lifting an object, like a bag of groceries from the floor 2 - Moderate difficulty 07/19/2022 9:00 AM Esther Narvaez, PT Performing light activities around your home 2 - Moderate difficulty 07/19/2022 9:00 AM Esther Narvaez, PT Performing heavy activities around your home 1 - Quite a bit of difficulty 07/19/2022 9:00 AM Esther Narvaez, PT Getting into or out of a car 2 - Moderate difficulty 07/19/2022 9:00 AM Esther Narvaez, PT Walking 2 blocks 1 - Quite a bit of difficulty 07/19/2022 9:00 AM Esther Narvaez, PT Walking a mile 1 - Quite a bit of difficulty 07/19/2022 9:00 AM Esther Narvaez, PT Going up or down 10 stairs (about 1 flight of stairs) 1 - Quite a bit of difficulty 07/19/2022 9:00 AM Esther Narvaez, PT Standing for 1 hour 1 - Quite a bit of difficulty 07/19/2022 9:00 AM Esther Narvaez, PT Sitting for 1 hour 2 - Moderate difficulty 07/19/2022 9:00 AM Esther Narvaez, PT Running on even ground 0 - Extreme diffi culty or unable to perform 07/19/2022 9:00 AM Esther Narvaez, PT Running on uneven ground 0 - Extreme difficulty or unable to perform 07/19/2022 9:00 AM Esther Narvaez, PT Making sharp turns while running fast 0 - Extreme difficulty or unable to perform 07/19/2022 9:00 AM Esther Narvaez, PT Hopping 0 - Extreme difficul ty or unable to perform 07/19/2022 9:00 AM Esther Narvaez, PT Rolling over in bed 2 - Moderate difficulty 07/19/2022 9:00 AM Esther Narvaez, PT * LEFS Total Score: Answer Date of Assessment Author 28 07/19/2022 9:00 AM Lisha Narvaez, PT * LEFS Percentage of Function Answer Date of Assessment Author 35 07/19/2022 9:00 AM Lisha Narvaez., PT * Question Answer Date of Assessment Author BP Location Right arm 07/16/2022 10:54 AM Kathy Smith RN BP Method Automatic 07/16/2022 10:54 AM Kathy Smith RN MAP (mmHg) 75 07/16/2022 10:54 AM Kathy Smith RN * Alcohol Withdrawal BP Hierarchy Answer Date of Assessment Author 58 07/16/2022 10:54 AM Wilson Quezada RN documented as of this encounter Plan of Treatment Not on file documented as of this encounter Visit Diagnoses Not on filedocumented in this encounter Care Teams Acquisition Specialist Relationship Specialty Start Date End Date Stuart Howe DO [address] [place] [address] PCP - General Family Medicine 05/10/21 July Maradiaga MD [address] [place] [address] Consulting Physician Cardiology 03/22/22 Bandar Up DPT [address] [facility] [address] [id number] Physical Therapist Physical Therapy 06/11/22 Esther Garcia, PT [address] [facility] [address] [address] Physical Therapist Physical Therapy 08/13/22 documented as of this encounter
--- OUTSIDE RECORDS SUMMARY | 2025-01-18 08:12 | XMS_ITS | Encounter Summary ---
Author Organization [facility] Address 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
--- OUTSIDE RECORDS SUMMARY | 2025-01-18 08:12 | XMS_ITS | Clinical Summary ---
Author Organization [facility] B Address [address] [place] [address] Care Team Providers Care Income Tax Expert Name Role Phone Stuart Howe DO Primary Care Provider July Maradiaga MD Unavailable [phone] Bandar Up DPT Unavailable [phone] Esther Garcia PT Unavailable [phone] Allergies Active Allergy Reactions Criticality Noted Date Comments Mirtazapine Other (See comments) High 11/04/2023 Pt states he is not allergic to this med. Medications aspirin 81 mg enteric coated tabletIndication s:Myocardial Reinfarction Prevention Take 1 tablet (81 mg total) by mouth daily with breakfast Active albuterol HFA (PROVENTIL HFA,VENTOLIN HFA,PROAIR HFA) 90 mcg/actuation inhalerIndicatio ns:Acute Asthma Attack Inhale 2 puffs every 6 (six) hours as needed for wheezing or shortness of breath 2 Active folic acid (FOLVITE) 1 mg tabletIndication s:Supplement Take 1 tablet (1,000 mcg total) by mouth every morning 2 Active acetaminophen (TYLENOL) 500 mg tablet Take 2 tablets (1,000 mg total) by mouth every 6 (six) hours 60 tablet 1 3 Active insulin lispro (HumaLOG, ADMELOG) 100 unit/mL pen for injection 12 - 15 units with meal 5 units for snacks plus 1 for every 40 > 150 - TDD 70 units 30 mL 11 3 Active metoprolol tartrate (LOPRESSOR) 25 mg immediate release tabletIndication s:hypertension Take 0.5 tablets (12.5 mg total) by mouth 2 (two) times a day Active ipratropium-albu teroL (DUO-NEB) 0.5-2.5 mg/3 mL nebulizer solutionIndicati ons:Asthma Inhale 3 mL every 6 (six) hours as needed for wheezing or shortness of breath Pt reports he does not use this 4 Active rOPINIRole (REQUIP) 1 mg tabletIndication s:Restless Legs Syndrome Take 1.5 tablets (1.5 mg total) by mouth every evening Active traZODone (DESYREL) 50 mg tabletIndication s:Sleep Take 1 tablet (50 mg total) by mouth nightly Active doxazosin (CARDURA) 1 mg tabletIndication s:hypertension Take 1 tablet (1 mg total) by mouth every evening 5 Active pen needle, diabetic 32 gauge x 32 needleIndication s:Type 2 diabetes mellitus with hyperglycemia, without long-term current use of insulin (HCC) Use as directed with basal, bolus, and correction insulin 5 to 6 times a day. 500 each 3 5 Active trospium (SANCTURA) 20 mg tabletIndication s:Bladder Hyperactivity,In creased Urinary Frequency Take 1 tablet (20 mg total) by mouth nightly 5 Active clobetasoL (TEMOVATE) 0.05 % creamIndications :rash Apply 1 Application topically 2 (two) times a day as needed (rash) 5 Active omeprazole (PriLOSEC) 40 mg capsuleIndicatio ns:GERD Take 1 capsule (40 mg total) by mouth director of conservation before breakfast Active atorvastatin (LIPITOR) 40 mg tabletIndication s:hyperlipidemia Take 1 tablet (40 mg total) by mouth every evening 5 Active insulin glargine (BASAGLAR) 100 unit/mL (3 mL) pen for injectionIndicat ions:Type II Diabetic Inject 20 units under skin daily 15 mL 4 5 Active HYDROcodone-acet aminophen (NORCO) 5-325 mg per tabletIndication s:Pain Take 1 tablet by mouth every 4 (four) hours as needed for pain 18 tablet 5 Active ipratropium (ATROVENT) 42 mcg (0.06 %) nasal sprayIndications :Chronic Non-Allergic Rhinitis Administer 2 sprays into each nostril 4 (four) times a day 15 mL 8 5 Active lisinopriL (PRINIVIL,ZESTRI L) 5 mg tablet Take 1 tablet (5 mg total) by mouth daily 5 Active Active Problems Problem Noted Date Diagnosed Date Status post insertion of spinal cord stimulator 12/16/2024 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 12/03/2024 Status post insertion of drug eluting coronary a rtery stent 11/22/2024 Chronic painful diabetic neuropathy 06/24/2024 Intractable neuropathic pain of lower extremity 06/17/2024 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 Hip pain 04/18/2022 Moderate malnutrition 04/16/2022 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 Overview (03/22/2022): Added automatically from request for surgery [id number] Essential (primary) hypertension 04/19/2020 Chronic back pain 04/19/2020 Mixed hyperlipidemia 05/11/2014 Sleep apnea 05/11/2014 Spinal stenosis 05/11/2014 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 Overview (04/18/2022): Coronary arteriosclerosis in [place] artery Type 2 diabetes mellitus wit h hyperglycemia, with long-term current use of insulin On methylprednisolone therapy IgA deficiency IgM deficiency Persistent 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 complication Encounters Date Type Department Care Team Description 01/17/2025 11:00 AM SWIMMING POOL MAINTENANCE SUPERVISOR Office Visit [facility] [place], [place] Endocrinology Metabolism and Lipid [address] [place] [address] [place] [phone] Gladys Box MD Type 2 diabetes mellitus with hyperglycemia, with long-term current use of insulin (HCC) (Primary Dx) 01/06/2025 Orders Only [facility] [place], [place] Neuro Muscle [address] [place] [address] [place] [phone] Aldo Johnson, ESCOBAR 12/31/2024 9:30 AM SWIMMING POOL MAINTENANCE SUPERVISOR Infusion [facility] [address] [facility] [address] [place] [phone] Altagracia Alvares, ESCOBAR 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 (Primary Dx); Hypogammaglobulinemia 12/29/2024 Orders Only [facility] [address] [facility] [address] [place] [phone] Rudy Lyn RN 12/29/2024 Telephone [facility] [place], [place] Allergy and Immunology [address] [place] [address] [place] [phone] Laurel Lancaster RN 12/27/2024 Orders Only [facility] [address] [place] [phone] Jenna Cronin, ESCOBAR 12/17/2024 Telephone [facility] [place] [place] Allergy and Immunology [address] [place] [address] [place] [phone] 12/16/2024 10:12 AM CDT - 12/16/2024 11:59 PM CDT Hospital Encounter [facility] [address] [address], [address] [place] [phone] Micheal Blanco MD PhD Intractable neuropathic pain of lower extremity (Primary Dx); Status post insertion of spinal cord stimulator; Chronic low back pain, unspecified back pain laterality, unspecified whether sciatica present Discharge Disposition: Discharge to home or self care 12/08/2024 3:04 PM CDT - 12/08/2024 11:59 PM CDT Hospital Encounter [facility] [address] [place] [phone] Chronic maxillary sinusitis Discharge Disposition: Discharge to home or self care 12/08/2024 1:15 PM CDT Lab [facility] [address] [place] [phone] Memory change; Peripheral nerve injury 12/08/2024 10:00 AM CDT Office Visit [facility] Medicine Neuro Muscle [address] [place] [address] [place] [phone] Amanda Zhang NP Memory change (Primary Dx); Peripheral nerve injury 12/08/2024 Telephone [facility] [place] [place] Neuro Muscle [address] [place] [address] [place] [phone] Emiliana Guillen [facility] 3rd Floor Lab needs orders for labwork - Patient is chichi 12/07/[address] [address] Anil Sutherland 12/03/2024 Telephone [facility] [place] [place] Allergy and Immunology [address] [place] [phone] Laurel Lancaster RN 2024 3:30 PM CDT Telemedicine [facility] [place] [place] Allergy and Immunology [address] [place] [phone] Jeovany Echevarria MD PhD Hypogammaglobulinemia (Primary Dx); 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 Health Information Management [address] [place] [phone] Scanning, Provider 11/30/2024 Results Follow-Up [facility] [place] [place] Allergy and Immunology [address] [place] [phone] Jeovany Echevarria MD PhD Strep pneumoniae antibody serotypes, CT Sinus WO Contrast 11/25/2024 3:30 PM CDT Lab [facility] at the [address] [phone] Hypogammaglobulinemia 11/25/2024 3:00 PM CDT Office Visit [facility] Medicine Allergy and Immunology [address] [facility] [address] [place] [phone] Jeovany Echevarria MD PhD Hypogammaglobulinemia (Primary Dx); Chronic maxillary sinusitis; Non-allergic rhinitis 11/22/2024 10:15 AM CDT Office Visit [facility] Medical Group Cardiology at [address] [place] [phone] Gavin Gr MD Status post insertion of drug eluting coronary artery stent (Primary Dx) from Last 3 Months Immunizations Immunization Administration Dates Next Due BCG 01/03/2024,12/27/2023 COVID-19 mRNA (Slantrange) 0.3 m L (30 mcg) vaccine (12 years and up) 12/09/2022 Influenza, Quad, Adjuvantate d, Intramuscular 12/09/2022 Influenza, Quadrivalent, Hig h Dose, Preservative Free, Intrr 12/07/2021 Influenza, Quadrivalent, Rec ombinant, Egg Free, Preservative Free, Intramuscular 12/08/2018 Influenza, Trivalent, High D ose, Split, Preservative Free, Intramuscular 10/20/2017 Influenza, Trivalent, IM (MDV) 12/30/2023,2014,2013 PPD TEST 01/03/2024,12/27/2023 Sourcebits SARS-CoV-2 Monovalent Vaccination (12+ Yrs) PURPLE 06/15/2021 Pneumococcal Polysaccharide PPV23 06/18/2022 RSV, Bivalent, Protein Subun it Rsvpref, Diluent (Abrysvo) 04/20/2024 ZOSTER Recombinant 06/23/2024,04/20/2024 Surgical History Surgery Date Site/Laterality Comments BACK [...] s/p cervical surgery 2023 Coronary artery disease Chronic pain disorder Peripheral neuropathy Extremity pain Family History Medical History Relation Name Comments [...] on file Legal Sex Male 6:01 PM SWIMMING POOL MAINTENANCE SUPERVISOR Gender Identity Male 05/07/2021 12:04 AM CDT Sexual Orientation Straight 06/25/2022 9: 20 AM CDT Last Filed Vital Signs Vital Sign Reading Time Taken Comments Blood Pressure 144/76 01/17/2025 10:39 AM SWIMMING POOL MAINTENANCE SUPERVISOR Pulse 59 01/17/2025 10:39 AM SWIMMING POOL MAINTENANCE SUPERVISOR Temperature 36.8 C (98.2 F) 01/17/2025 10:39 AM SWIMMING POOL MAINTENANCE SUPERVISOR Respiratory Rate 18 12/16/2024 10:26 AM CDT Oxygen Saturation 100% 12/31/2024 1:30 PM SWIMMING POOL MAINTENANCE SUPERVISOR Inhaled Oxygen Concentration - - Weight 78.7 kg (173 lb 9.6 oz) 01/17/2025 10:39 AM SWIMMING POOL MAINTENANCE SUPERVISOR Height 175.3 cm (5' 9) 01/17/2025 10:39 AM SWIMMING POOL MAINTENANCE SUPERVISOR Body Mass Index 25.64 01/17/2025 10:39 AM SWIMMING POOL MAINTENANCE SUPERVISOR Plan of Treatment Health Maintenance Due Date Last Done Comments Hepatitis C Screening 1945 Dilated Eye Exam 1945 Foot Exam 1945 Hepatitis B Screening 12/03/1963 DTaP/Tdap/Td Vaccine (1 - Tdap) 11/21/2007 8, 02/27/1996 Well Visit 65+ 2010 Depression Screening 04/09/2023 04/09/2022 Covid-19 Vaccine (7 - 2024-2 6 season) 2024 12/30/2023, 12/09/2022, 06/15/2021, Additional history exists Influenza Vaccine (#1) 2024 , 12/09/2022, 12/07/2021, Additional history exists Hemoglobin A1C 07/17/2025 01/17/2025, 07/0 08/2024, 05/03/2024, Additional history exists Albumin Creatinine Ratio, Urine 08/30/2025 , 04/28/2023 eGFR 08/30/2025 08/30/2024, 0 05/2023, 06/06/2022, Additional history exists Lipid Panel 09/02/2025 09/02/2024, 030 05/2023, 04/15/2022, Additional history exists Fall Risk Assessment 12/16/2025 12/16/2024, 09/16/2024, 08/05/2024, Additional history exists Pneumococcal vaccine 65+ Completed [...] home safety. Medical Devices Implanted Type Area Nurse Epidemiologist Device Identifier Shelf Expiration Date Model / Serial / Lot Stent Implanted:Qty: 3 Stent N/A: Heart [employer]ogen Inc Advance 3-4mm 50mm Allograft Graft Nerve Sterile [id number] - [id number] - [id number] Implanted:Qty: 1 on 03/29/2022 by Jacquie Sol MD at [facility] Left: Leg [employer]ogen Inc 05/24/2024 [id number] / [id number] / [id number] [employer] Weck Horizon Ligate Triangulate Cross Section Wire Small Wide Latex Free [id number] - [id number] Implanted:Qty: 2 on 03/29/2022 by Jacquie Sol MD at [facility] Left: Leg Teleflex Medical Inc 09/28/2026 [id number] / / Medtronic Inc Kit Lead Neurostimulator Percutaneous Spine 1x8 Electrode Compact Vectris Surescan Titanium 60cm [id number] - [id number] Implanted:Qty: 1 on 07/29/2024 by Micheal Blanco MD PhD at [facility] 4 Medtronic Inc 07/05/2028 [id number] 260 / / [id number] Medtronic Inc Kit Lead Neurostimulator Percutaneous Spine 1x8 Electrode Compact Vectris Surescan Titanium 60cm [id number] - [id number] Implanted:Qty: 1 on 07/29/2024 by Micheal Blanco MD PhD at [facility] 4 Med[employer]onic Inc 07/05/2028 [id number] 260 / / [id number] Medtronic Inc Generator Pulse Inceptiv Sys Stm Electrcl Analges Implant [id number] - [id number] Implanted:Qty: 1 on 09/16/2024 at [facility] Right: Back Medtronic Inc 07/07/2025 [id number] / [id number] / Dwyer Vascular Multi-Link 8 Ll Od4 Mm L38 Mm L143 Cm Rapid Exchange Reinforce H [id number] - [id number] Implanted:Qty: 1 on 09/16/2024 by Micheal Blanco MD PhD at [facility] Left: Spine Thoracic Dwyer Vascular [id number] / / Medtronic Inc Envelope Absrb 2.7x2.5in Antibacterial Tyrx Medium Strl [id number] - [id number] Implanted:Qty: 1 on 09/16/2024 at [facility] Right: Back Medtronic Inc 04/29/2025 [id number] / / [id number] Medtronic Inc Vectris 5mm 60cm 1x8 Electrode Mri Lead Neurostimulator [id number] - [id number] Implanted:Qty: 1 on 09/16/2024 at [facility] Left: Back Med[employer]onic Inc 07/29/2028 [id number] / [id number] / Medtronic Inc Vectris 5mm 60cm 1x8 Electrode Mri Lead Neurostimulator [id number] - [id number] Implanted:Qty: 1 on 09/16/2024 at [facility] Right: Back Med[employer]onic Inc 08/10/2028 [id number] / [id number] / Procedures Procedure Name Priority Date/Time Associated Diagnosis Comments POCT HEMOGLOBIN A1C Routine 01/17/2025 10:48 AM SWIMMING POOL MAINTENANCE SUPERVISOR Type 2 diabetes mellitus with hyperglycemia, with long-term current use of insulin (HCC) POCT GLUCOSE 60098 Routine 01/17/2025 10:48 AM SWIMMING POOL MAINTENANCE SUPERVISOR Type 2 diabetes mellitus with hyperglycemia, with long-term current use of insulin ([facility]) NEUROMUSCULAR SPECIMEN TRACKING OUTPATIENT Routine 12/11/2024 2:03 PM CDT Memory change Peripheral nerve injury CT SINUS WO CONTRAST Schedule Routine, Read Routine (OP Routine) 12/08/2024 3:26 PM CDT Chronic maxillary sinusitis NEUROMUSCULAR TESTING Routine 12/08/2024 12:00 AM CDT Memory change Peripheral nerve injury CARDIOLOGY DOCUMENT SCAN 11/30/2024 9:28 PM CDT STREP PNEUMONIAE ANTIBODY SEROTYPES Routine 11/25/2024 3:16 PM CDT Hypogammaglobulinemi a ECG 12-LEAD Routine 11/22/2024 10:06 AM CDT Status post insertion of drug eluting coronary artery stent LIPID PANEL Routine 09/02/2024 10:56 AM CDT Type 2 diabetes mellitus with hyperglycemia, with long-term current use of insulin (HCC) Mixed hyperlipidemia EGFR Routine 08/30/2024 12:24 PM CDT Type 2 diabetes mellitus with hyperglycemia, with long-term current use of insulin (HCC) ALBUMIN CREATININE RATIO, URINE Routine 08/30/2024 12:24 PM CDT Type 2 diabetes mellitus with hyperglycemia, with long-term current use of insulin (HCC) from Last 3 Months or Most Recently Relevant to Health Maintenance Results * POCT glucose (01/17/2025 10:48 AM SWIMMING POOL MAINTENANCE SUPERVISOR) Glucose Blood, POC 152 Normal Fasting 70 - 100, Random <200 mg/dL Blood 01/17/2025 10:4 8 AM SWIMMING POOL MAINTENANCE SUPERVISOR Gladys Box MD POINT OF CARE TEST ORDERABLES Final Result * (ABNORMAL) POCT hemoglobin A1c (01/17/2025 10:48 AM SWIMMING POOL MAINTENANCE SUPERVISOR) Hemoglobin A1C, POC 7.4(A) 4.0 - 5.6 % Blood 01/17/2025 10:4 8 AM SWIMMING POOL MAINTENANCE SUPERVISOR Gladys Box MD POINT OF CARE TEST ORDERABLES Final Result * Neuromuscular Specimen Tracking Outpatient Blood (12/11/2024 2:03 PM CDT) Blood Narrative [facility] - 12/11/2024 2:03 PM CDT Blood draw complete Amanda Zhang LAUNDRY MACHINE TENDER LAB BLOOD ORDERABLES F inal Result [facility] [place] [address] * CT Sinus WO Contrast (12/08/2024 3:26 PM CDT) Anatomical Region Laterality Modality Head and Neck N/A Computed Tomogra phy 12/09/2024 3:36 PM CDT Narrative 12/09/2024 3:48 PM CDT EXAM DESCRIPTION: CT SINUS WO CONTRAST REASON FOR STUDY: Sinusitis, chronic or recurrent Chronic sinus drainage TECHNIQUE: Noncontrast scanning through the paranasal sinuses using bone algorithm. Reconstructed MPR images reviewed. All images stored on PACS. Automated exposure control was used as a dose optimization technique for this examination. COMPARISON: Brain MRI comparison 10/20/2023. FINDINGS: SINUSES: Postoperative changes with resection of the medial green of maxillary sinuses bilaterally and bilateral ethmoid discectomies are again evident. Previously noted left maxillary air-fluid level is no longer seen. The paranasal sinuses appear aerated without mucosal thickening or opacification. The sphenoid sinuses and frontal sinuses are also patent. No obstruction of the sinus drainage pathways is identified. Trace mucosal thickening of the right frontoethmoidal region without narrowing. NASAL CAVITY: Midline nasal septum. BONES: No fracture or bone lesion. ORBITS: Unremarkable with no mass or inflammatory changes. TMJS: Normal. MASTOIDS: Well-aerated. IACs symmetric, grossly normal. BRAIN: Limited view. No acute findings. OTHER: Stabilization screws through the odontoid process evident. Some lucency around the screws evident. Alignment is grossly stable. Fracture line remains visible. IMPRESSION: 1. Postoperative changes of the paranasal sinuses. No findings to indicate acute or chronic sinusitis. 2. Stabilization screws through the odontoid process with some lucency around the screws. Alignment is grossly stable. Fracture line remains visible. THIS IS AN ELECTRONICALLY VERIFIED FINAL REPORT 12/09/2024 3:48 PM - Electronically signed by Ismael Mccann M.D. LC: JAMAAL Report ID: [id number] Reading Location: [id number] Procedure Note Concetta Mccann MD - 12/09/2024 EXAM DESCRIPTION: CT SINUS WO CONTRAST REASON FOR STUDY: Sinusitis, chronic or recurrent Chronic sinus drainage TECHNIQUE: Noncontrast scanning through the paranasal sinuses using bone algorithm. Reconstructed MPR images reviewed. All images stored on PACS. Automated exposure control was used as a dose optimization technique forthis examination. COMPARISON: Brain MRI comparison 10/20/2023. FINDINGS: SINUSES: Postoperative changes with resection of the medial green of maxillary sinuses bilaterally and bilateral ethmoid discectomies are again evident. Previously noted left maxillary air-fluid level is no longerseen. The paranasal sinuses appear aerated without mucosal thickening or opacification. The sphenoid sinuses and frontal sinuses are also patent.No obstruction of the sinus drainage pathways is identified. Trace mucosal thickening of the right frontoethmoidal region without narrowing. NASAL CAVITY: Midline nasal septum. BONES: No fracture or bone lesion. ORBITS: Unremarkable with no mass or inflammatory changes. TMJS: Normal. MASTOIDS: Well-aerated. IACs symmetric, grossly normal. BRAIN: Limited view. No acute findings. OTHER: Stabilization screws through the odontoid process evident. Some lucency around the screws evident. Alignment is grossly stable. Fracture line remains visible. IMPRESSION: 1. Postoperative changes of the paranasal sinuses. No findings toindicate acute or chronic sinusitis. 2. Stabilization screws through the odontoid process with some lucency around the screws. Alignment is grossly stable. Fracture line remainsvisible. THIS IS AN ELECTRONICALLY VERIFIED FINAL REPORT 12/09/2024 3:48 PM - Electronically signed by Ismael Mccann M.D. LC: JAMAAL Report ID: [id number] Reading Location: [id number] Jeovany Echevarria MD PhD IMG CT PROCEDURES Final Re sult * Neuromuscular Testing Blood (12/08/2024 12:00 AM CDT) Blood (Serum) 12/08/2024 12/09/2024 Narrative [facility] - 12/16/2024 12:35 AM CDT Please click on the PDF link to view the report containing this result Amanda Zhang NP LAB PATHOLOGY ORDERABL ES Final Result [facility] Room [address] [place] [address] * Cardiology Document Scan (11/30/2024 9:28 PM CDT) Anatomical Region Laterality Modality Other us Provider Scanning CV CARDIAC SERVICES PROCEDURES Edited Result - Final * Strep pneumoniae antibody serotypes (11/25/2024 3:16 PM CDT) [facility] S. pneumo Type 1 (1) 0.2 >=1.0 mcg/mL [place] ref [facility] S. pneumo Type 2 (2) 0.2 >=1.0 mcg/mL [facility] S. pneumo Type 3 (3) <0.1 >=1.0 mcg/mL [facility] S. pneumo Type 4 (4) <0.1 >=1.0 mcg/mL [facility] S. pneumo Type 5 (5) <0.1 >=1.0 mcg/mL [facility] S. pneumo Type 8 (8) 0.7 >=1.0 mcg/mL [facility] S. pneumo Type 9N (9) 0.3 >=1.0 mcg/mL [facility] S. pneumo Type 12F (12) 0.2 >=1.0 mcg/mL [facility] S. pneumo Type 14 (14) 0.1 >=1.0 mcg/mL [facility] S. pneumo Type 17F (17) 0.1 >=1.0 mcg/mL [facility] S. pneumo Type 19F (19) 0.4 >=1.0 mcg/mL [facility] S. pneumo Type 20 (20) 0.3 >=1.0 mcg/mL [facility] S. pneumo Type 22F (22) 0.1 >=1.0 mcg/mL [facility] S. pneumo Type 23F (23) 0.1 >=1.0 mcg/mL [facility] S. pneumo Type 6B (26) <0.1 >=1.0 mcg/mL [facility] S. pneumo Type 10A (34) 0.1 >=1.0 mcg/mL [facility] S. pneumo Type 11A (43) <0.1 >=1.0 mcg/mL [facility] S. pneumo Type 7F (51) 0.5 >=1.0 mcg/mL [facility] S. pneumo Type 15B (54) 0.2 >=1.0 mcg/mL [facility] S. pneumo Type 18C (56) <0.1 >=1.0 mcg/mL [facility] S. pneumo Type 19A (57) 0.2 >=1.0 mcg/mL [facility] S. pneumo Type 9V (68) <0.1 >=1.0 mcg/mL [facility] S. pneumo Type 33F (70) 0.4 >=1.0 mcg/mL [facility] Pneum Ab 23 interp See Footnote [facility] Treviño Comment: Evaluation of the immune response following pneumococcal vaccination can be assessed by measuring serotype-specific Streptococcus pneumonia IgG antibodies. Either of the following conditions is consistent with a normal response to Streptococcus pneumonia vaccination: 1. When comparing pre and post-vaccination samples, antibody concentrations increased by at least 2-fold for either >50% of serotypes in children <6 years of age or >70% of serotypes for individuals >6 years of age. 2. In either a pre- or post-vaccination sample, antibody concentrations >=1.0 mcg/mL for either >50% of serotypes for children <6 years of age or >70% of serotypes for individuals >6 years of age. Results >=1.0 mcg/mL or those showing a >=2-fold change are consistent with an immune response, but are not necessarily sufficient to provide protection against infection. ADDITIONAL INFORMATION This test was developed and its performance characteristics determined by [facility] in a manner consistent with CLIA requirements. This test has not been cleared or approved by the U.S. Food and Drug Administration. Test Performed by: [facility] [place] [place] [address] Aeronautical Engineering Teacher: Gilberto Ko Ph.D.; CLIA# [id number] Blood 11/25/2024 3:16 PM CDT 11/25/2024 8:01 PM CDT us Jeovany Echevarria MD PhD LAB BLOOD ORDERABLES Final Result [facility] Department [place] [address] [place] ref [facility] * ECG 12 lead (11/22/2024 10:06 AM CDT) us Gavin Gr MD ECG ORDERABLES Final Re sult * (ABNORMAL) Lipid panel (09/02/2024 10:56 AM [...] revised on 2017. Triglycerides 77 <=149 mg/dL [facility] Comment: Interpretive Data Ages < or [...] on 2017. HDL 28(L) >=40 mg/dL [facility] Comment: Interpretive Data Ages < or [...] on 2017. LDL, calculated 47 <=129 mg/dL [facility] Comment: Interpretive Data Ages < or [...] 3. Isaiah Gibson et al. YUDY Cardiol. 2019June 24;5(5):540-548. doi: 10.1001/jamacardio.2020.0013 Current Interpretive Data was last revised on 2023. Non-HDL Cholesterol 63 mg/dL [facility] Comment: Interpretive Data Ages < or [...] last revised on 2017. Chol/HDL ratio 3 [facility] Blood 09/02/2024 10:5 6 AM CDT 09/02/2024 11:32 AM CDT Narrative [facility] - 09/02/2024 12:07 PM CDT These lab test should be done fasting. This means do not eat or drink for at least 12 hours prior to getting your blood drawn. Bety Horton NP LAB BLOOD ORDERABLES Whit l Result Performing Organization Address [facility] Co de Phone Number [facility] Department [place] [address] * eGFR (08/30/2024 12:24 PM CDT) eGFR [...] ORDERABLES Whit l Result Performing Organization Address [facility]/ZIP Co de Phone Number [facility] [place] [address] * (ABNORMAL) Albumin Creatinine Ratio, Urine (08/30/2024 12:24 PM CDT) Albumin Ur 72.2 mg/L Comment: Interpretive Data No reference range established. Current interpretive data was last revised 2018. Creatinine Ur 125.7 mg/dL [facility] Comment: Interpretive Data No reference range established. Current interpretive data was last revised 2018. Albumin Creatinine Ratio, Ur 57(H) 1 - 29 mg/g [facility] Urine 08/30/2024 12:2 4 PM CDT 08/30/2024 12:53 PM CDT us Bety Horton NP LAB URINE ORDERABLES [place] perry Result [facility] Department [place] [address] from Last 3 Months or Most Recently Relevant to Health Maintenance Insurance [facility]ICARE [facility] MEDICARE [facility] MEDIC[facility] [place] [id number] Advance Directives For more information, please contact: [phone] * Full Code (Latest Code Status on File) Date Activated Date Inactivated Comments 04/15/2022 4:03 PM 04/18/2022 9:50 PM * Full Code Date Activated Date Inactivated Comments 03/29/2022 4:51 PM 03/30/2022 7:50 PM Care Teams Income Tax Expert Relationship Specialty Start Date End Date Stuart Howe DO [address] [place] [address] PCP - General Family Medicine 05/10/21 July Maradiaga MD [address] [place] [address] Consulting Physician Cardiology 03/22/22 Bandar Up, MACKENZIE [address] [facility] [address] [place] [address] Physical Therapist Physical Therapy 06/11/22 Esther Garcia, PT [address] [facility] [address] [address] [place] [address] Physical Therapist Physical Therapy 08/13/22
--- OUTSIDE RECORDS SUMMARY | 2025-01-18 08:12 | XMS_ITS | Encounter Summary ---
Author Organization [employer] Address 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
--- OUTSIDE RECORDS SUMMARY | 2025-01-18 08:12 | XMS_ITS | Encounter Summary ---
Author Organization [facility] Address [address] [place] [address] Phone Care Team Providers Care Nuclear Medicine Technologist Name Role Phone Stuart Howe DO Primary Care Provider July Maradiaga MD Unavailable [phone] Bandar Up DPT Unavailable [phone] Esther Garcia PT Unavailable [phone] Encounter Details Date Type Department Care Team (Late st Contact Info) Description 11/30/2024 Results [facility] Medicine Allergy and Immunology [address] [facility] [address] [place] [address] Jeovany Echevarria MD PhD [facility] [facility] [address] Zaf[address] [facility] [address] [place] [address] Strep pneumoniae antibody serotypes, CT Sinus WO Contrast Social History Tobacco Use Types Packs/Day Years [...] on file Legal Sex Male 6:01 PM 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 Gender Identity Male 05/07/2021 12:04 AM CDT [...] on filedocumented in this encounter Care Teams Nuclear Medicine Technologist Relationship Specialty Start Date End Date Stuart Howe DO [address] [place] [address] PCP - General Family Medicine 05/10/21 July Maradiaga MD [address] [place] [address] Consulting Physician Cardiology 03/22/22 Bandar Up DPT [address] [facility] [address] [id number] Physical Therapist Physical Therapy 06/11/22 Esther Garcia, PT [address] [facility] [address] [facility] [place], [place] [id number] Physical Therapist Physical Therapy 08/13/22 documented as of this encounter
--- OUTSIDE RECORDS SUMMARY | 2025-01-18 08:12 | XMS_ITS | Clinical Summary ---
Author Organization [facility]ocket Address [address] [place] [address] Care Team Providers Care Program/Music Director Name Role Phone Del Cid Cipriano REESE-FAMILY CONSULTANT Primary Care Provider [phone] Source Comments [facility],non-owned Affiliates and Associated Physician Practices is amultiple site organization consisting of ambulatory clinics and hospital sitesin [place], [place], [place] and [place]. This disclosure is being madepursuant to the Care Everywhere program and may not contain all information available regarding this patient. Last updated 17.[facility] Allergies Active Allergy Reactions Criticality Noted Date [...] Shortness of Breath or Wheezing 4 Active insulin glargine (Lantus/Semgle e) 100 units/mL pen Inject 38 (thirty eight) Units subcutaneously every morning 4 Active insulin aspart (NovoLOG) pen Inject 0 (zero) Units to 12 (twelve) Units subcutaneously every 6 hours 4 Active atorvastatin (Lipitor) 40 MG tablet 1 (one) tablet by Enteral Tube route at bedtime 4 Active saline nasal spray (Ceiba; Baby Shaw) 0.65 % nasal spray [place] 2 (two) sprays into each nostril every 4 hours 4 Active Additional Information Patient not taking.Reported on 01/06/2025 folic acid (Folvite) 1 MG tablet 1 (one) tablet by Enteral Tube route once daily 4 Active polyethylene glycol 3350 (Miralax) 17 g packet 17 (seventeen) g by Enteral Tube route 2 times daily 4 Active Additional Information Patient not taking.Reason: Patient adjusted, Reported on 01/06/2025 phenol 1.4 % 2 sprays by Mouth/Throat route every 1 hour as needed 4 Active Additional Information Patient not taking.Reason: Patient adjusted, Reported on 01/06/2025 lansoprazole (Prevacid) 30 MG capsule 1 (one) capsule by Per G Tube route daily before breakfast 4 Active Additional Information Patient not taking.Reported on 01/06/2025 doxazosin (Cardura) 1 MG tablet Take 1 [...] FOR 2 WEEK 5 Active nystatin (Mycostatin) 961708 UNIT/ML suspension ADMINISTER 2ML TO EACH CHEEK POUCH EVERY 6 HOURS FOR 10 DAY 5 Active tuberculin PPD (Tubersol) 5 UNIT/0.1ML injection Tuberculin PPD Solution 5 UNIT/0.1ML active 379810 RXNORM 0.1 ml Intradermal every evening shift [...] Active ipratropium (Atrovent) 0.06 % nasal spray [place] 2 (two) sprays into the nose 3 times daily 5 Active HYDROcodone-ac etaminophen (Cambria) 5-325 MG tablet Take 1 (one) tablet [...] (05/01/2023): Added automatically from request for surgery [id number] 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 04/19/2020 05/01/2023 [...] 05/11/2014 05/01/2023 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 05/01/2023 Overview (05/01/2023): Coronary arteriosclerosis in koi artery Resolved Problems Problem Noted Date Diagnosed Date Resolved Date Bacterial pneumonia 11/18/2023 12/16/19 Fever 11/27/2018 12/11/2018 Encounters Date Type Department Care Team Description 01/06/2025 1:45 PM BRICK UNLOADER TENDER Office Visit [facility] - ENT [address] [place] [address] Byron Robins MD Presbyphonia (Primary Dx); Presbylarynges; Paresis of left vocal fold 01/06/2025 Travel 12/27/2024 1:15 PM BRICK UNLOADER TENDER Office Visit [facility] - Neurosurgery [address] [place] [address] Demetrius Morgan MD Closed odontoid fracture with nonunion, subsequent encounter (Primary Dx) 12/27/2024 Travel 12/17/2024 Telephone [facility] - Centralized Scheduling [address] [place] [address] Demetrius Morgan MD Appointment 10/20/2024 Travel from Last 3 Months Immunizations Immunization Administration Dates Next Due INFLUENZA VACCINE, TRIV. (AF LURIA, FLUZONE TRIVALENT; 6MO+) (IIV3) 12/30/2023,11/24/2014,2013 BCG DETENTION, HISTORIC VACCINE 01/03/2024,12/27/2023 COVID PFIZER 12+YR 30MCG/0.3mL [...] at all 11/07/2023 [facility] [place] [facility] Occupat ional [facility] - Occupational Stress [...] place to sleep or slept in a jail (including now)? No 11/07/2023 Sex and Gender Information Value Date Recorded Sex Assigned at Not on file Legal Sex Male 5:16 PM BRICK UNLOADER TENDER Gender Identity Not on file Sexual Orientation Not on file Last Filed Vital Signs Vital Sign Reading Time Taken Comments Blood Pressure 131/79 01/06/2025 1:08 PM BRICK UNLOADER TENDER Pulse 63 01/06/2025 1:08 PM BRICK UNLOADER TENDER Temperature 37.2 C (99 F) 06/28/2024 2:53 PM CDT Respiratory Rate 20 12/16/2023 3:18 PM CDT Oxygen Saturation 98% 12/27/2024 12: 40 PM BRICK UNLOADER TENDER Inhaled Oxygen Concentration 21% 11/19/2023 8 :48 PM CDT Weight 77.9 kg (171 lb 12.8 oz) 01/06/2025 1:08 PM BRICK UNLOADER TENDER Height 175.3 cm (5' 9) 01/06/2025 1:08 PM BRICK UNLOADER TENDER Body Mass Index 25.37 01/06/2025 1:08 PM BRICK UNLOADER TENDER Plan of Treatment Upcoming Encounters Date Type Department Care Team (Late st Contact Info) Description 03/02/2025 10:00 AM BRICK UNLOADER TENDER Testing Visit [facility]NT [address] [place] [phone] Danny Francois, PhD [address] [place] [address] [address] [place] [address] 03/02/2025 10:30 AM BRICK UNLOADER TENDER Office Visit [facility] - ENT [address] [place] [address], [place] [phone] Vinicius Avalos MD [facility] DOOR [address] [place] [address] Health Maintenance Due Date Last Done Comments MEDICARE AWV 12 MONTHS 1945 DTAP/TDAP/TD VACCINES (1 - Tdap) 1964 DIABETES RETINOPATHY SCREENING 05/01/2023 DIABETES-FOOT EXAM WITH MONOFILAMENT 05/01/2023 PNEUMOCOCCAL VACCINE 50+ (2 of 2 - PCV) 06/19/2023 06/18/2022 DEPRESSION SCREENING 02/25/2024 DIABETES - URINE PROTEIN SCREENING 02/25/2024 DIABETES-HGB A1C 05/05/2024 11/06/2023, 11/29/2018 COVID-19 VACCINE (2024- season) 2024 12/30/2023, 12/09/2022, 06/15/2021, Additional history exists INFLUENZA VACCINE (#1) 2024 , 12/09/2022, 12/07/2021, Additional history exists DIABETES-SERUM CREATININE 12/15/20242023, 12/14/2023, 12/12/2023, Additional history exists Respiratory Syncytial Virus (RSV) [...] this topic Medical Devices Implanted Type Area Polarity Tester Device Identifier Shelf Expiration Date Model / Serial / Lot Screw 4mm 38mm Spne Jose Eleazar Ucss Ti Implanted:Qty: 1 on 11/14/2023 by Demetrius Morgan MD at [facility] N/A: Spine Cervical [employer] [id number] / / Screw 4mm 38mm Eleazar Lag Spne Jose Ucss Implanted:Qty: 1 on 11/15/2023 by Demetrius Morgan MD at [facility] N/A: Spine Cervical [employer] [id number] / / Procedures Procedure Name Priority Date/Time Associated Diagnosis Comments COMPREHENSIVE METABOLIC PANEL Routine 12/16/2023 6:56 AM CDT HEMOGLOBIN A1C OSMAR 11/06/2023 4:00 AM CDT from Last 3 Months or Most Recently Relevant to Health Maintenance Results * (ABNORMAL) COMPREHENSIVE METABOLIC PANEL (12/16/2023 6:56 AM CDT) BUN 26 7 - 26 mg/dL 12/16/2023 8:14 AM [facility] Creatinine 0.74 0.71 - 1.16 mg/dL 12/16/2023 8:14 AM [facility] Sodium 139 136 - 145 mmol/L 12/16/2023 8:14 AM [facility] Potassium 3.6 3.5 - 4.5 mmol/L 12/16/2023 8:14 AM [facility] Chloride 100 98 - 107 mmol/L 12/16/2023 8:14 AM [facility] CO2 29 22 - 29 mmol/L 12/16/2023 8:14 AM [facility] Glucose 224(H) 70 - 115 mg/dL 12/16/2023 8:14 AM [facility] Calcium 9.1 8.4 - 10.2 mg/dL 12/16/2023 8:14 AM [facility] Protein Total 6.8 6.0 - 8.3 g/dL 12/16/2023 8:14 AM [facility] Albumin 3.1(L) 3.4 - 5.0 g/dL 12/16/2023 8:14 AM [facility] Bilirubin Total 0.5 0.2 - 1.2 mg/dL 12/16/2023 8:14 AM [facility] Alkaline Phosphatase 96 40 - 150 U/L 12/16/2023 8:14 AM [facility] ALT 38 5 - 55 U/L 12/16/2023 8:14 AM [facility] AST 38(H) 5 - 34 U/L 12/16/2023 8:14 AM [facility] Anion Gap 10 6 - 16 12/16/2023 8:14 AM [facility] BUN/Creatinine Ratio 35(H) 7 - 23 12/16/2023 8:14 AM [facility] Osmolality Calculated 300(H) 275 - 295 mOsm/kg 12/16/2023 8:14 AM [facility] Albumin/Globulin Ratio 0.8(L) 1.1 - 2.3 12/16/2023 8:14 AM [facility] eGFR by CKD-EPI >90 >=90 mL/min/1.7 3 m2 12/16/2023 8:14 AM [facility] Blood BLOOD SPECIMEN / Unknown Lab Venipuncture / Unknown 12/16/2023 6:56 AM CDT 12/16/2023 7:48 AM CDT Ananth Murphy STORE CLERK CASHIER-FAMILY CONSULTANT LAB - CHEMISTRY ORDERABL ES Final Result Performing Organization Address [facility]/State/ZIP Co de Phone Number [address] [address] [phone] * (ABNORMAL) HEMOGLOBIN A1C (11/06/2023 4:00 AM [facility]) Hemoglobin A1c 7.9(H) <=5.6 % 11/06/2023 9:00 AM [facility] Estimated Average Glucose 180 mg/dL 11/06/2023 9:00 AM [facility] Comment: HbA1c Interpretation: Normal : < 5.7% Pre-diabetes: 5.7-6.4% Diabetes: Equal to or greater than 6.5% Test results diagnostic of diabetes should be repeated for confirmation. Treatment target values recommended by ADA and other clinical organizations should be used to evaluate metabolic control in patients. Reference: [place] Diabetes Association, Standards of Care in Diabetes [...] LAB - CHEMISTRY ORDERABLES F inal Result [address] [address], [facility] [phone] from Last 3 Months or Most Recently Relevant to Health Maintenance Additional Health Concerns Infection Onset Date Last Indicated MRSA Hx 11/07/2023 11/07/2023 Insurance MEDICARE [facility] [place], [place] [address] MEDICARE Advance Directives * Full Code (Latest Code Status on File) Date Activated Date Inactivated Comments 11/04/2023 11:12 PM 12/16/2023 8:27 PM * Full Code Date Activated Date Inactivated Comments 11/28/2018 12:22 AM 12/01/2018 1:00 PM Care Teams Program/Music Director Relationship Specialty Start Date End Date Cipriano Del Cid APRN-FAMILY CONSULTANT [address] [place] [address] PCP - General 12/26/22
--- OUTSIDE RECORDS SUMMARY | 2025-01-18 08:12 | XMS_ITS | Encounter Summary ---
Author Organization [facility] Address 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
--- OUTSIDE RECORDS SUMMARY | 2025-01-18 08:12 | XMS_ITS | Encounter Summary ---
Author Organization [facility] Address [address] [place] [address] Care Team Providers Care Tire Finisher Name Role Phone Ehsan Campos MD Primary Care Provider [phone] Encounter Details Date Type Department Care Team (Latest Contact Info) Description 06/22/1999 Outpatient Historical HIS [facility] GINA Barba, Wilmer Wang MD [address] [place] [address] Abdominal pain, epigastric (Primary Dx) Social History Tobacco Use Types Packs/Day Years Used Date Smoking Tobacco: Never Assessed Sex and Gender Information Value Date Recorded Sex Assigned at Not on file Legal Sex Male 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
--- OUTSIDE RECORDS SUMMARY | 2025-01-18 08:12 | XMS_ITS | Encounter Summary ---
Author Organization [employer] Address 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
--- OUTSIDE RECORDS SUMMARY | 2025-01-18 08:12 | XMS_ITS | Encounter Summary ---
Author Organization [employer] Address [address] [place] [address] Care Team Providers Care Horse Trainer Name Role Phone Ehsan Campos MD Primary Care Provider [phone] Encounter Details Date Type Department Care Team (Late st Contact Info) Description 05/30/2006 Outpatient Historical HIS MRI DEPT Backer, Wellington Husain MD NO ADDRESS ON FILE Cervical Spondylosis without Myelopathy (Primary Dx) Social History Tobacco Use Types Packs/Day Years Used Date Smoking Tobacco: Never Assessed Sex and Gender Information Value Date Recorded Sex Assigned at Not on file Legal Sex Male 2:57 AM COMIC BOOK ARTIST Gender Identity Not on file Sexual Orientation Not on file documented as of this encounter Plan of Treatment Not on file documented as of this encounter Visit Diagnoses Diagnosis Cervical spondylosis without myelopathy- Primary documented in this encounter Care Teams Horse Trainer Relationship Specialty Start Date End Date Ehsan Campos MD [address] [place] [address] PCP - General 01/14/03 documented as of this encounter
--- OUTSIDE RECORDS SUMMARY | 2025-01-18 08:12 | XMS_ITS | Encounter Summary ---
Author Organization [employer] Address [address] [place] [address] Care Team Providers Care Milk Truck Driver Name Role Phone Ehsan Campos MD Primary Care Provider [phone] Encounter Details Date Type Department Care Team (Late st Contact Info) Description 02/05/2003 Outpatient Historical [facility] ([facility]) [address] [place] [address] Alfredo See MD NO ADDRESS ON FILE Social History Tobacco Use Types Packs/Day Years Used Date Smoking Tobacco: Never Assessed Sex and Gender Information Value Date Recorded Sex Assigned at Not on file Legal Sex Male 2:57 AM HOME AGENT Gender Identity Not on file Sexual Orientation Not on file documented as of this encounter Plan of Treatment Not on file documented as of this encounter Visit Diagnoses Not on filedocumented in this encounter Care Teams Milk Truck Driver Relationship Specialty Start Date End Date Ehsan Campos MD [address] [place] [address] PCP - General 01/14/03 documented as of this encounter
--- OUTSIDE RECORDS SUMMARY | 2025-01-18 08:12 | XMS_ITS | Clinical Summary ---
Author Organization [facility] Address [address] [address] Phone Care Team Providers Care Photovoltaic Installation Technician Name Role Phone Ehsan Campos MD Primary Care Provider [phone] Madhav Hodges DO Unavailable [phone] Allergies No known active allergies Medications [...] 2020 Influenza Immunization (#1) 2024 SARS-COV-2 Immunization (1 - 2024- season) 2024 Colonoscopy Discontinued 10/10/2015 Colorectal Cancer [...] complete this topic Insurance MEDICARE Care Teams Photovoltaic Installation Technician Relationship Specialty Start Date End Date Ehsan Campos MD [address] [place] [address] PCP - General Family Medicine 10/06/15 Madhav Hodges DO [address] [place] [address] Gastroenterology 10/24/15
--- OUTSIDE RECORDS SUMMARY | 2025-01-18 08:12 | XMS_ITS | Encounter Summary ---
Author Organization [employer] Address [address] [place] [address] Care Team Providers Care Compliance Monitor Name Role Phone Ehsan Campos MD Primary Care Provider [phone] Encounter Details Date Type Department Care Team (Late st Contact Info) Description 06/27/2006 Outpatient Historical [facility] Support Serv. ([facility]) [address] 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
--- OUTSIDE RECORDS SUMMARY | 2025-01-18 08:12 | XMS_ITS | Clinical Summary ---
Author Organization 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 Gender Identity Not on file Sexual Orientation [...] 06/23/2024, 04/20/2024 Medical Devices Implanted Type Area Gaming Surveillance Observer Device Identifier Shelf Expiration Date Model / Serial / Lot Rick Xpdm Crv W/Line 75mm [id number] - [id number] Implanted:Qty : 2 on 05/10/2014 by Alban Boyd MD at [facility] Rick N/A: Spine Lumbar [employer] 5 / / Description:Load April 24 Screw Set Inner 1797-22-000 - [id number] Implanted:Qty : 6 on 05/10/2014 by Alban Boyd MD at [facility] Screw [employer] 0 / / Description:Load 39 2014 Screw Xpdm Fa 6.0x45mm [id number] - [id number] Implanted:Qty : 1 on 05/10/2014 by Alban Boyd MD at [facility] Screw [employer] 5 / / Description:Load 39 April 25, 2014 Screw Xpdm Fa 7.0x45mm [id number] - [id number] Implanted:Qty : 5 on 05/10/2014 by Alban Boyd MD at [facility] Screw [employer] 5 / / Description:Load 39 2014 Sealant Floseal W/ Adptr 10ml [id number] - [id number] Implanted:Qty : 1 on 05/10/2014 by Alban Boyd MD at [facility] Sealant N/A: Back [employer] 07/24/2015 [id number] / / [id number] Sealant Floseal W/ Adptr 10ml [id number] - [id number] Implanted:Qty : 1 on 09/04/2015 by Aixa Tamayo MD at [facility] Sealant N/A: Spine Lumbar [employer] 12/24/2016 [id number] / / [id number] Cross Cnnctr Xpdm Sfx 5.5 Ti 189--406 - [id number] Implanted:Qty : 1 on 05/10/2014 by Alban Boyd MD at [facility] Spine N/A: Spine Lumbar [employer] 6 / / Description:Load 311 April Explanted Type Area Gaming Surveillance Observer Device Identifier Shelf Expiration Date Model / Serial / Lot Screw Xpdm Fa 7.0x45mm [id number] - [id number] Implanted:Alban Morillo MD (Quantity not on file) Explanted:Qty: 1 on 05/10/2014 at [facility] Screw [employer] [id number] / / Description:Load 39 April 25, 2014 Procedures Procedure Name Priority Date/Time Associated Diagnosis Comments HEMOGLOBIN A1C Add on 05/10/2014 5:32 PM CDT from Last 3 Months or Most Recently Relevant to Health Maintenance Results * (ABNORMAL) HEMOGLOBIN A1C (05/10/2014 5:32 PM CDT) HEMOGLOBIN A1C 6.6(H) 4.1 - 6.1 % of Hgb [facility] EST. AVG GLUCOSE, A1C 143 mg/dL [facility] Comment:Based on the [facility] equation. Blood 05/10/2014 5:32 PM CDT 05/12/2014 6:49 PM CDT Narrative [facility] - 05/12/2014 6:50 PM CDT If not available from last three months us Chang Kidd MD CHEMISTRY ORDERABLES Final Resul t [facility] LARA# [id number] [address] [place] [place] [address] from Last 3 Months or Most Recently Relevant to Health Maintenance Insurance MEDICARE PART A AND B [facility] Advance Directives For more information, please contact: [phone] * Full Code (Latest Code Status on [...] 9:40 AM 05/10/2014 10:26 AM Care Teams Plaster Block Layer Relationship Specialty Start Date End Date Ehsan Campos MD [address] [place] [address] PCP - General 01/14/03
[2025-01-18 09:25] LABS: Anion Gap 14 mmol/L (4-12); Blood Urea Nitrogen 26 mg/dL (9-20); Calcium 9.3 mg/dL (8.4-10.2); Carbon Dioxide 25 mmol/L (22-30); Chloride 105 mmol/L (98-107); Estimated Glomerular Filt Rate > 60; Glucose 120 mg/dL (65-110); Osmolality Calculated 303 mOsm/kg (285-295); Potassium 3.7 mmol/L (3.4-5.0); Sodium 144 mmol/L (137-145)
== END 2025-01-18 08:09 | disposition home or self-care (01) ==
LOC: CHSLAB 08:09
PROVIDERS: PCP Nurse Practitioner Family; Visit Provider Anesthesiology
DX: E11.9 Type 2 diabetes mellitus without complications (principal)
CPT/HCPCS: 36415; 80048

== ENCOUNTER 2025-01-28 02:11 | Day surgery (SDC) | payer MEDICARE, OTHER, SELFPAY ==
[2025-01-12 15:03] VITALS: BMI 25.2
--- NOTE | 2025-01-12 15:25 | PC.NURSE ---
[facility] has started construction of its new state of the art ER which will open Spring 2026. With this, we anticipate parking may be a challenge for some our surgical patients and families. Parking spaces are limited but are available for all Surgical, obstetrics, and ER patients sharing this lot. If you arrive and find you are having a hard time finding a parking space, please note that we understand the challenges, please drive around the hospital and park near Hospital Entrance 1. When you enter this entrance, you can ask a volunteer to direct or take you back to the surgical waiting area to check in. We appreciate everyone?s understanding of these expected challenges while we build for your future. Report to the Outpatient Waiting Room, entrance under the green pavilion located off [address], at time __0900am on date __01/28/25 . Planned Procedure Time: __1100am .? Time changes happen often and if your time is changed the preop area will call you the afternoon before. - You and your visitor will be asked to self-screen and do not enter if you have any COVID symptoms. Please call surgeon if you need to reschedule. - A mask is optional within the hospital at this time. Patients may have No food or drink from midnight until time of surgery and no smoking, or chewing tobacco (or any form of nicotine). No chewing gum, candy or mints. Take only the following medications with a SIP of water on the morning of surgery: Metoprolol DO NOT STOP ANY OF YOUR OTHER PRESCRIPTION MEDICATIONS PRIOR TO SURGERY EXCEPT THE FOLLOWING Hold all vitamins and supplements for 3 days per anesthesiologist. Date of last dose 01/24/25 Medications to discontinue per physician Dr Gallegos Office to call cayetano blair ASPIRIN Instructions (NICHOLAS blair the office today) Date to take last dose Pending Please no make-up, nail stateless, hairspray, perfume, deodorant, or body powder the day of surgery.? No jewelry (including any body piercings) or valuables the day of surgery, leave them at home.? Please take a shower or bath the night before & morning of, surgery with an antibacterial soap.? Wear comfortable, loose fitting clothing.? - Jewelry must be removed prior to entering the operating room.? Rings and piercings that are not removed may be cut off. - The hospital will not accept responsibility for valuables.? - Please leave all valuables, including medications, at home the day of surgery. If you are going home after surgery, a licensed cryogenic transport driver must drive you home.? - NO public transportation without another adult if you receive anesthesia. - We recommend that an adult stay with you for 24 hours following discharge. - We also recommend that you do not drive, make important decision, drink alcoholic beverages, or take any drugs that were not prescribed by your health care provider for at least 24 hours after your discharge time. Follow any additional instructions given to you from your surgeon . Pt to get labs done next week either at [facility] on friday and gave pt our Fax to send if they do BMP, if not pt will have done at [facility] next week- Orders in Telephone instructions given to __Patient and asked if any additional questions and then verbalized understanding. Patient advised to call surgeon office or pre surgery nurse liaison [phone] if any additional questions.
--- NOTE | 2025-01-28 06:52 | PM.HPGS ---
History of Present Illness History of Present Illness Chief complaint: Digital Mucous Cyst Rt Middle Finger Narrative: Patient seen and examined in pre-operative holding area. No interval change in medical history or symptoms. Patient recalls previous discussion of benefits and alternatives to procedure. Continues to desire to proceed with right middle finger mucous cyst excision . Reviewed procedure, post-op expectations and risks including but not limited to bleeding, infection, injury to tendon/nerve/vessel, decreased hand function, stiffness, RSD, no change or worsening of symptoms, recurrence. I discussed the possible use of assistants and their participation in the case. Patient stated understanding and signed the consent form wishing to proceed. Review of Systems Review of Systems: All systems reviewed & are unremarkable except as noted in HPI and below PMFSH Past Medical History Medical History Parkinsonian features MCI (mild cognitive impairment) Tachycardia Obstructive sleep apnea Visit for suture removal Urinary symptom or sign Right elbow pain Sarcoidosis Elevated fecal calprotectin Fatigue Long COVID Asthma COVID Asthma Coronary artery disease Lumbar disc herniation Hernia Fusion of lumbar spine (~2013) Surgical History Surgical History H/O left inguinal hernia repair History of heart artery stent April, History of cardiac cath April, with stent History of cholecystectomy H/O lumbosacral spine surgery History of tonsillectomy and adenoidectomy Family History Family History Father Diabetes mellitus Hypertension Family history of elevated blood lipids Family history of cardiovascular disease Acute myocardial infarction Mother Diabetes mellitus Hypertension Family history of elevated blood lipids Acute myocardial infarction Family history of chronic obstructive pulmonary disease Sibling Diabetes mellitus Hypertension Family history of elevated blood lipids Other Family history of kidney disease Social History Social History Smoking packs per day: 1 Smoking cigarettes per day: 20.0 Years smoked: 10 Smoking pack-years: 10.00 Smoking status: Former smoker Tobacco type: cigarettes Second hand tobacco smoke exposure: No Smoking end date: 02/24/77 Alcohol intake: never Substance use: never Substance use type: does not use Lack of Transportation: No Lack of Food: Never True Current Housing: I Have Housing Concerned About Future Housing: No Difficulty Paying Gas/Electric Bills: No Difficulty Paying for Meds: YES Currently Unemployed: No Education: High School Diploma/GED Difficulty w/ Childcare or Family Care: No Living arrangements: with family Additional living arrangements comments: Spiritual care concerns: No Meds Home Medications and Allergies Home Medications ?Medication ?Instructions ?Recorded ?Confirmed ?Type aspirin 81 mg tablet,delayed 81 mg PO DAILY 07/05/20 01/12/25 History release ipratropium 0.5 mg-albuterol 3 mg 3 ml inhalation Q6H PRN Shortness 12/20/23 01/12/25 History (2.5 mg base)/3 mL nebulization Of Breath Or Wheezing soln insulin aspart U-100 100 unit/mL 4 - 8 unit subcut Q6HR #10 mL 12/26/23 01/12/25 Rx subcutaneous solution (Novolog U-100 Insulin aspart) acetaminophen 500 mg tablet 500 mg PO Q6H PRN pain 04/02/24 01/12/25 History (Tylenol Extra Strength) pen needle, diabetic 29 gauge x #100 ea 05/06/24 01/12/25 Rx 1/2 cholecalciferol (vitamin D3) 25 25 mcg PO DAILY #30 caps 05/21/24 01/12/25 Rx mcg (1,000 unit) capsule albuterol sulfate 90 mcg/actuation See Rx Instructions .Route 09/07/24 01/12/25 Rx aerosol inhaler .COMPLEX #8.5 ea folic acid 1 mg tablet See Rx Instructions .Route 09/20/24 01/12/25 Rx .COMPLEX #90 tabs metoprolol tartrate 25 mg tablet See Rx Instructions .Route 09/20/24 01/12/25 Rx .COMPLEX #90 tabs atorvastatin 40 mg tablet 40 mg PO QHS #90 tabs 12/09/24 01/12/25 Rx ipratropium bromide 42 mcg (0.06 See Rx Instructions .Route 12/22/24 01/12/25 Rx %) nasal spray .COMPLEX #45 mL lisinopril 5 mg tablet 5 mg PO DAILY #90 tabs 12/22/24 01/12/25 Rx omeprazole 40 mg capsule,delayed See Rx Instructions .Route 12/22/24 01/12/25 Rx release .COMPLEX #90 caps ropinirole 0.5 mg tablet See Rx Instructions .Route 12/27/24 01/12/25 Rx .COMPLEX #90 tabs trazodone 50 mg tablet See Rx Instructions .Route 12/27/24 01/12/25 Rx .COMPLEX #90 tabs doxazosin 1 mg tablet See Rx Instructions .Route 01/03/25 01/12/25 Rx .COMPLEX #90 tabs insulin glargine 100 unit/mL (3 20 unit subcut QPM 01/12/25 01/12/25 History mL) subcutaneous pen (Basaglar KwikPen U-100 Insulin) Allergies Allergy/AdvReac Type Severity Reaction Status Date / Time mirtazapine Allergy Intermediate legs shake Verified 01/12/25 14:50 Exam Narrative: unchanged Assessment and Plan Assessment and plan (1) Digital mucous cyst: Code(s): M67.449 - Ganglion, unspecified hand Status: Acute Assessment and Plan: cont as above
--- NOTE | 2025-01-28 06:53 | P.OP_ITS ---
Procedure Note - Detailed Date of Procedure 01/28/25 Pre-op Diagnosis Digital Mucous Cyst Rt Middle Finger Post-op Diagnosis Same (with osteophyte middle phalanx) Procedure Performed excision right middle finger mucous cyst, osteophyts and adjacent tissue transfer Surgeon Jazmine Gallegos MD Lodging Facilities Attendant jesse barrett pa-c Anesthesia MAC Description of Procedure INFORMED CONSENT: The patient was seen and examined and marked in the pre-op area.? The patient signed the consent form. PROCEDURE IN DETAIL:The patient taken back to OR on the stretcher in supine position. Time out performed with anesthesia, surgeon and staff agreeing on patient's name site and surgery to be performed SCDs were placed on the lower extremities and inflated. A tourniquet was placed on {right/} upper extremity and antibiotics given IV After anesthesia administered sedation I injected {3}cc 1%lido and 0.5% marcaine plain for digital block in the palm The?{right upper extremity}?was prepped and draped in sterile fashion the??{right upper extremity} was? exsanguinated with Esmarch bandage and tourniq uet inflated to 250mmHg I proceeded with making an elliptical incision around the open affected skin over R middle finger mucous cyst through skin and dermis with 15 blade scalpel. Scalpel was used to elevate skin flaps and exposed cyst. Cyst stalk was excised from dorsal dipjoint capsule with bipolar cautery. Here I identified an osteophyte arising from the middle phalanx. I reflected periosteum with freer elevator and rongeured the osteophyte til smooth and flat. I irrigated with normal saline and repaired the capsular defect with 4-0 vicryl. I was unable to close the skin incison primarily even with wide undermining so I extended my incision proximally with 15 blade scalpel to create a rotation advancement flap. The flap was elevated with 15 blade and rotated to allow for closure of the defect. Closure done with 4-0 chromic. A dressing of xeroform, 4x4, joseph, and tube gauze was applied after the tourniquet was let down noting the hand was warm and well perfused. The patient was then awaken from anesthesia and transferred to the recovery room in stable condition.? Complications - none EBL- 0cc Disposition - home in stable condition Jesse Swathi PA-C was essential for positioning, retraction, closure and dressing placement. [facility] Billing Surgery - Charge Forward: Surgery Billing ([id number] [id number] same for jesse adding )
[2025-01-28 09:45] VITALS: BP 149/60; PULSE 62; RESP 16; TEMP 36.8; O2SAT 100
[2025-01-28] MEDS: ACETAMINOPHEN 500 MG TABLET 1000 MG PO (09:45)
[2025-01-28] MEDS: LACTATED RINGERS 1,000 ML 30 ML IV CONT (09:45)
[2025-01-28 10:03] LABS: Anion Gap 5 mmol/L (4-12); Blood Urea Nitrogen 20 mg/dL (9-20); Calcium 8.8 mg/dL (8.4-10.2); Carbon Dioxide 27 mmol/L (22-30); Chloride 106 mmol/L (98-107); Estimated CRCL calculation 52 ml/min; Estimated Glomerular Filt Rate > 60; Glucose 134 mg/dL (65-110); Potassium 4.3 mmol/L (3.4-5.0); Sodium 138 mmol/L (137-145)
--- NOTE | 2025-01-28 10:30 | WPDANESEPPF ---
Anes - Initial Pre Proc Eval Procedure: Operation Date: 01/28/25 11:00 Proposed Procedures p Right Middle Finger Mucous Cyst Excision - Jazmine Gallegos MD Date/Time: 01/28/25 10:30 Surgeon: Jazmine Gallegos MD Pre Op Diagnosis: Digital Mucous Cyst Rt Middle Finger Patient Data Age: 79 Gender: M Height: 1.75 m Weight: 77.4 kg Allergies Allergy/AdvReac Type Severity Reaction Status Date / Time mirtazapine Allergy Intermediate legs shake Verified 01/12/25 14:50 Home Medications ?Medication ?Instructions ?Recorded ?Confirmed ?Type aspirin 81 mg tablet,delayed 81 mg PO DAILY 07/05/20 01/12/25 History release ipratropium 0.5 mg-albuterol 3 mg 3 ml inhalation Q6H PRN Shortness 12/20/23 01/12/25 History (2.5 mg base)/3 mL nebulization Of Breath Or Wheezing soln insulin aspart U-100 100 unit/mL 4 - 8 unit subcut Q6HR #10 mL 12/26/23 01/12/25 Rx subcutaneous solution (Novolog U-100 Insulin aspart) acetaminophen 500 mg tablet 500 mg PO Q6H PRN pain 04/02/24 01/12/25 History (Tylenol Extra Strength) pen needle, diabetic 29 gauge x #100 ea 05/06/24 01/12/25 Rx 1/2 cholecalciferol (vitamin D3) 25 25 mcg PO DAILY #30 caps 05/21/24 01/12/25 Rx mcg (1,000 unit) capsule albuterol sulfate 90 mcg/actuation See Rx Instructions .Route 09/07/24 01/12/25 Rx aerosol inhaler .COMPLEX #8.5 ea folic acid 1 mg tablet See Rx Instructions .Route 09/20/24 01/12/25 Rx .COMPLEX #90 tabs metoprolol tartrate 25 mg tablet See Rx Instructions .Route 09/20/24 01/12/25 Rx .COMPLEX #90 tabs atorvastatin 40 mg tablet 40 mg PO QHS #90 tabs 12/09/24 01/12/25 Rx ipratropium bromide 42 mcg (0.06 See Rx Instructions .Route 12/22/24 01/12/25 Rx %) nasal spray .COMPLEX #45 mL lisinopril 5 mg tablet 5 mg PO DAILY #90 tabs 12/22/24 01/12/25 Rx omeprazole 40 mg capsule,delayed See Rx Instructions .Route 12/22/24 01/12/25 Rx release .COMPLEX #90 caps ropinirole 0.5 mg tablet See Rx Instructions .Route 12/27/24 01/12/25 Rx .COMPLEX #90 tabs trazodone 50 mg tablet See Rx Instructions .Route 12/27/24 01/12/25 Rx .COMPLEX #90 tabs doxazosin 1 mg tablet See Rx Instructions .Route 01/03/25 01/12/25 Rx .COMPLEX #90 tabs insulin glargine 100 unit/mL (3 20 unit subcut QPM 01/12/25 01/12/25 History mL) subcutaneous pen (Basaglar KwikPen U-100 Insulin) hydrocodone 5 mg-acetaminophen 325 1 tablet PO Q8H PRN pain #6 tabs 01/28/25 Rx mg tablet Laboratory Tests 01/28/25 09:31 Sodium 138 mmol/L (137-145) Potassium 4.3 mmol/L (3.4-5.0) Chloride 106 mmol/L (98-107) Carbon Dioxide 27 mmol/L (22-30) Anion Gap 5 mmol/L (4-12) BUN 20 mg/dL (9-20) Creatinine 1.02 mg/dL (0.7-1.3) Estim Creat Clear Calc 52 ml/min Estimated GFR > 60 (59 - ) Glucose 134 H mg/dL (65-110) Calcium 8.8 mg/dL (8.4-10.2) Patient hx anesthesia problems: none Family hx anesthesia problems: none Results Review: All pre-operative results and documents have been reviewed as part of the pre-operative evaluation. [facility] Past Medical History Medical History Parkinsonian features MCI (mild cognitive impairment) Tachycardia Obstructive sleep apnea Visit for suture removal Urinary symptom or sign Right elbow pain Sarcoidosis Elevated fecal calprotectin Fatigue Long COVID Asthma COVID Asthma Coronary artery disease Lumbar disc herniation Hernia Fusion of lumbar spine (~2013) Surgical History Surgical History H/O left inguinal hernia repair History of heart artery stent April, History of cardiac cath April, with stent History of cholecystectomy H/O lumbosacral spine surgery History of tonsillectomy and adenoidectomy Family History Family History Father Diabetes mellitus Hypertension Family history of elevated blood lipids Family history of cardiovascular disease Acute myocardial infarction Mother Diabetes mellitus Hypertension Family history of elevated blood lipids Acute myocardial infarction Family history of chronic obstructive pulmonary disease Sibling Diabetes mellitus Hypertension Family history of elevated blood lipids Other Family history of kidney disease Social History Social History Smoking packs per day: 1 Smoking cigarettes per day: 20.0 Years smoked: 10 Smoking pack-years: 10.00 Smoking status: Former smoker Tobacco type: cigarettes Second hand tobacco smoke exposure: No Smoking end date: 02/24/77 Alcohol intake: never Substance use: never Substance use type: does not use Lack of Transportation: No Lack of Food: Never True Current Housing: I Have Housing Concerned About Future Housing: No Difficulty Paying Gas/Electric Bills: No Difficulty Paying for Meds: YES Currently Unemployed: No Education: High School Diploma/GED Difficulty w/ Childcare or Family Care: No Living arrangements: with family Additional living arrangements comments: Spiritual care concerns: No Anes - Eval Final PreProcedure Day of Procedure 01/28/25 10:30 Patient weight: overweight Heart: regular rate and rhythm Lungs: clear to auscultation Airway: Mallampati scale class II and special considerations poor dentition Neurological: alert and oriented Last oral intake: >/= 8 hours ASA classification: III Emergent: no Anesthetic plan: proceed Anesthesia type and monitoring: general GIVS and standard monitoring Results Review: All pre-operative results and documents have been reviewed as part of the pre-operative evaluation. Informed Consent: The patient's anesthetic plan and its attendant risks and benefits were discussed with the patient/family/POA. Questions were solicited and answers provided to the satisfaction of the patient/family/POA.
[2025-01-28] MEDS: ceFAZolin 2 GM in SODIUM CHLORIDE 0.9% IV 50 ML 100 ML IVPB (10:57)
[2025-01-28] MEDS: LIDOCAINE 1% LOCAL INJ 10 ML VIAL 5 ML INFILTRATE (10:57)
--- NOTE | 2025-01-28 11:07 | S_PTH ---
PATIENT: Gavin Fenton LOC: [facility] U#:[id number] AGE/SX: 79/M ROOM: RE01/28/[address]: Jazmine Gallegos MD : 1945 BED: DIS: 01/28/2025 SPEC #: [id number] RECD: 01/28/25 13:37 STATUS: VENESSA REQ #: [id number] LIZANDRO: 01/28/25 11:[address]: Jazmine Gallegos DEPT: [facility] [place] Surgical RECD BY: Roxane Richey ENTERED: 01/28/25 13:38 SP TYPE: Surgical OTHR DR: Cipriano Del Cid APRN Tissues: A - Cyst Procedures: Hematoxylin and Eosin Stain Gross and Microscopic Level 4
[2025-01-28 11:22] VITALS: BP 127/62; PULSE 66; RESP 14
[2025-01-28 11:50] VITALS: BP 146/67; PULSE 67; RESP 14
[2025-01-28 12:20] VITALS: BP 167/78; PULSE 71; RESP 14
== END 2025-01-28 12:45 | disposition home or self-care (01) ==
PROVIDERS: Anesthesiology; PCP Nurse Practitioner Family; Visit Provider Plastic Surgery
PROC: (CPT 26210; principal; 2025-01-28 11:00)
DX: M67.441 Ganglion, right hand (principal); M25.741 Osteophyte, right hand; G31.84 Mild cognitive impairment of uncertain or unknown etiology; G20.C Parkinsonism, unspecified; R00.0 Tachycardia, unspecified; G47.33 Obstructive sleep apnea (adult) (pediatric); R53.83 Other fatigue; J45.909 Unspecified asthma, uncomplicated; I25.10 Atherosclerotic heart disease of native coronary artery without angina pectoris; Z79.82 Long term (current) use of aspirin; Z79.4 Long term (current) use of insulin; Z79.51 Long term (current) use of inhaled steroids; Z79.891 Long term (current) use of opiate analgesic; Z98.890 Other specified postprocedural states; Z95.5 Presence of coronary angioplasty implant and graft; Z90.49 Acquired absence of other specified parts of digestive tract; Z98.1 Arthrodesis status; Z87.891 Personal history of nicotine dependence; Z82.49 Family history of ischemic heart disease and other diseases of the circulatory system
CPT/HCPCS: 26210; 14040; 36415; 80048; 82948; 88305; J0690; A9270; J2003; J2405; J2704; J3010; J7120